=== PATIENT | female | born 1960 | race Caucasian/White ===

== ENCOUNTER 2019-11-26 11:51 | Outpatient (CLI) | payer OTHER, SELFPAY | END 2019-11-26 11:52 | disposition home or self-care (01) | PROVIDERS: PCP Family Medicine; Visit Provider Surgery | DX: Z01.812 Encounter for preprocedural laboratory examination (principal); K43.2 Incisional hernia without obstruction or gangrene | CPT/HCPCS: 36415; 86850; 86900; 86901 ==

== ENCOUNTER 2019-12-04 00:14 | Day surgery (SDC) | payer OTHER, SELFPAY ==
[2019-11-20 14:04] VITALS: BMI 37.6
[2019-12-04] VITALS (19 sets, daily range): BP systolic 104–154; BP diastolic 48–103; PULSE 74–96; RESP 12–20; TEMP 35.9–36.7; O2SAT 92–99; BMI 36.3
--- NOTE | 2019-12-04 09:24 | WPDANESEPPF ---
Anes - Initial Pre Proc Eval Procedure: Operation Date: 12/04/19 11:00 Proposed Procedures p Laparoscopic Incisional Hernia Repair with Mesh, Davinci Assisted - Duncan Parker DO Date/Time: 12/04/19 09:24 Surgeon: Duncan Parker DO Pre Op Diagnosis: incisional hernia Patient Data Age: 59 Gender: F Height: 1.57 m Weight: 93.44 kg Allergies Allergy/AdvReac Type Severity Reaction Status Date / Time peanut Allergy Severe Anaphylactic Verified 12/04/19 09:27 Shock cyclobenzaprine Allergy Mild HYPERACTIVI Verified 12/04/19 09:27 TY latex Allergy Mild Rash Verified 12/04/19 09:27 hydrocodone AdvReac Mild N/V Verified 12/04/19 09:27 COCONUT Allergy Mild Hives / Uncoded 11/20/19 14:06 Red Face METALS Allergy Mild Hives / Uncoded 11/20/19 14:06 Red Face Home Medications Medication Instructions Recorded Confirmed Type No Home Medications 11/07/19 12/04/19 History Patient hx anesthesia problems: none Family hx anesthesia problems: none PMFSH Past Medical History Medical History (Updated 12/04/19 @ 09:25 by Aaron Garber MD) Arthritis Benign reactive hypertension Crohn's disease Degenerative joint disease Incisional hernia without obstruction or gangrene Non compliance w medication regimen GREGORIA (obstructive sleep apnea) Tobacco abuse Umbilical hernia Surgical History Surgical History History of colon resection 2019 History of colonoscopy History of neck surgery Tubal ligation status Social History Social History Social History: Smoking status: Current every day smoker Tobacco type: cigarettes Second hand tobacco smoke exposure: No Alcohol intake: never Substance use: never Substance use type: does not use Gender identity (if verbalized by the patient): Female Anes - Eval Final PreProcedure Day of Procedure 12/04/19 09:24 Patient weight: obese Heart: regular rate and rhythm Lungs: clear to auscultation and normal air movement Airway: Mallampati scale class II Neurological: alert and oriented Last oral intake: >/= 8 hours ASA classification: III Emergent: no Anesthetic plan: proceed Anesthesia type and monitoring: general ETT Informed Consent: The patient's anesthetic plan and its attendant risks and benefits were discussed with the patient/family/POA. Questions were solicited and answers provided to the satisfaction of the patient/family/POA.
[2019-12-04] MEDS: LACTATED RINGERS 1,000 ML 30 ML IV CONT ×3 (10:04→14:50)
[2019-12-04] MEDS: IBUPROFEN IV 800 MG/200 ML 800 MG/200 ML BAG 400 MG IVPB ×2 (10:05→17:33)
--- NOTE | 2019-12-04 10:31 | WPDHPUPDATE1 ---
History and Physical Update Update Date/Time: 12/04/19 10:31 History and Physical has been reviewed, including an updated exam of the patient. There are NO changes in the patient's condition. Risks, benefits, and alternatives have been discussed and questions answered. Patient agrees to proceed with procedure.
[2019-12-04] MEDS: ceFAZolin 2 GM/D5W 50 ML 2 GM/50 ML BAG IVPB (11:00)
--- NOTE | 2019-12-04 13:32 | PM.PROC ---
Procedure Note - Detailed Date of procedure: 12/04/19 Pre-op diagnosis: Incisional Hernia Post-op diagnosis: other (Umbilical and Incisional Hernia) Procedure performed: Laparoscopic incisional hernia repair with Symbotex mesh, da Sasha assisted Description of procedure: Procedure as well as risks, benefits, and alternatives were discussed with the patient. Written consent was obtained and placed in chart prior to procedure. Patient was brought back to surgical suite. She was placed supine on operating table. Time-out was done to confirm patient and procedure. She was then intubated by the anesthesia department. A bump was placed under her left hip, and the bed was flexed slightly to extend the space between her costal margin and iliac crest. Her abdomen was prepped and draped in sterile fashion using chlorhexidine prep. A 5 millimeter incision was made in the left upper quadrant, and a 5 millimeter Optiview trocar was advanced through the abdominal layers under direct visualization. Once inside the abdominal cavity, carbon dioxide insufflation was used to create a pneumoperitoneum. Her abdomen was inspected. An 8 millimeter incision was made in the left lower quadrant, and an 8 millimeter robotic trocar was placed under direct visualization. Another 8 millimeter incision was made in the left lateral abdomen, and an 8 millimeter robotic trocar was placed under direct visualization. Exparel was infiltrated along the lateral abdominal spence to perform a transversus abdominis plane block bilaterally. The 5 millimeter port was removed, the incision was extended to 12 millimeters, and a 12 millimeter air seal port was placed under direct visualization. A Lon-Garibay cone was also used to place an 0-Vicryl simple interrupted suture at this trocar site. The robotic arms were brought up to the patient's bedside and secured to the ports. The camera and instruments were inserted, and I then moved over to the robotic console and took control of the camera and instruments. After careful thorough inspection of the abdominal cavity, I began my dissection at the hernia. There were a few omental adhesions up to the hernia defect and midline abdominal wall. These were taken down using hook electrocautery. The umbilical hernia sac was then excised using hook electrocautery. This was removed and discarded. The falciform ligament was then also taken down for about 5 cm cephalad using hook electrocautery to allow for mesh placement along the abdominal wall. I then measured the hernia size. The umbilical hernia measured 2 cm x 2 cm, and the incisional hernia measured 1 cm x 1 cm and was located 5 cm cephalad to the umbilical hernia. The fascia was closed using an 0-Stratafix running suture in a vertical fashion. A 10 cm x 15 cm Symbotex mesh was then placed within the abdominal cavity. This was oriented vertically with the mesh centered on the hernia defect. The mesh was then secured along the perimeter using 2 0 V lock running absorbable suture. Two 18 in sutures were used starting at the superior and inferior edge and running along the outer circumference.. The repair was inspected, and one final inspection was made around the abdominal cavity. The robotic instruments were then removed, and the robotic arms were disengaged from the trocars. The ports were then removed under direct visualization, the camera was removed, and the pneumoperitoneum was released. The 0 Vicryl transfascial suture was tied down. The skin of the incisions was then approximated using 4-0 Monocryl subcuticular suture. Exofin glue was then applied on top. The patient was then awakened from anesthesia, extubated, and transferred to recovery. Implants: Symbotex mesh 15 cm x 10 cm Anesthesia: GETA and local (Exparel) Surgeon: Duncan Parker DO Estimated blood loss (mL): 5 Drains: No Complications: No immediate complications Condition: stable Disposition: floor Findings: This is a 59-y
[2019-12-04] MEDS: HYDROMORPHONE HCL 1 MG/ML INJ 0.25 MG IV PUSH ×3 (14:19→14:36)
--- NOTE | 2019-12-04 14:43 | SUR.PHASEI ---
1443 updated family on pt condition
[2019-12-04] MEDS: ONDANSETRON INJ 4 MG/2 ML VIAL IV PUSH ×2 (14:48→19:39)
--- NOTE | 2019-12-04 14:55 | SUR.PHASEI ---
1450 pt having pain and nausea, notified danyell paredes to admit pt.
--- NOTE | 2019-12-04 15:25 | SUR.PHASEI ---
1634 sbar faxed to floor, notified
--- NOTE | 2019-12-04 16:52 | PC.NURSE ---
This patient, Saira Colbert, was admitted to [facility] Surg Room 320-01. Patient/family oriented to hospital policies and general routines including ID bracelet, bed and alarms, visiting hours, pain management, procedures, bathroom and other care routines, personal items, smoking policy, room service/diet, and visiting hours. Valuables list has been completed. Information on how to activate the Rapid Response Team has been discussed. Patient/Family are encouraged to report perceived risks to care and to ask questions if they do not understand what they are told or what they should do.
[2019-12-04] MEDS: MORPHINE SULFATE 4 MG/ML INJ IV PUSH (19:39)
[2019-12-04] MEDS: ENOXAPARIN 30 MG/0.3 ML SYRINGE SUB-Q (21:39)
[2019-12-05] MEDS: IBUPROFEN IV 800 MG/200 ML 800 MG/200 ML BAG 400 MG IVPB ×2 (00:25→07:34)
[2019-12-05 02:00] VITALS: BP 104/60; PULSE 85; RESP 18; TEMP 36.6; O2SAT 98
[2019-12-05 06:11] VITALS: BP 101/48; PULSE 73; RESP 18; TEMP 36.6; O2SAT 98
[2019-12-05] MEDS: polyethylene glycoL 3350 17 GM POWD.PACK PO (08:28)
--- NOTE | 2019-12-05 10:25 | PM.DS ---
DS: Diagnosis Admitting Diagnosis Admitting Diagnosis: Incisional hernia without obstruction or gangrene Discharge Diagnosis (1) Incisional hernia without obstruction or gangrene: Code(s): K43.2 - Incisional hernia without obstruction or gangrene Status: Acute (2) Umbilical hernia: Code(s): K42.9 - Umbilical hernia without obstruction or gangrene Status: Acute (3) Crohn's disease: Code(s): K50.90 - Crohn's disease, unspecified, without complications Status: Acute (4) Tobacco abuse: Code(s): Z72.0 - Tobacco use Status: Acute DS: Summary Hospital Course Reason for hospitalization: Postop pain after robotic assisted laparoscopic incisional hernia repair with mesh Hospital Course: This is a 59-year-old woman who presented with an incisional hernia from a prior hand assisted laparoscopic ileocolic resection for Crohn's disease. She has noticed a bulge at her umbilicus and just above her umbilicus over the past several months. She is having pain with this and has to manually reduce the hernia. Decision was made to proceed with an incisional hernia repair. This was performed yesterday. Surgery was uncomplicated, but patient had postoperative pain that was difficult to control in recovery. She was receiving some Dilaudid for pain control, but this was causing nausea. Decision was then made to admit the patient for continued IV pain medications. Status at Discharge Functional status at discharge: independent ambulation Overall status at discharge: patient is progressing back to baseline Time Spent with Patient Time attestation: Total time spent providing and/or coordinating discharge services: Time spent: Less than 30 minutes Exam Const: General: no acute distress GI: Auscultation: normal bowel sounds Other: Incisions healing well. Glue intact. Abdominal binder in place. Discharge Plan Discharge Patient Disposition: Home, Self-Care Discharge Instructions: DISCHARGE INSTRUCTION SHEET FOR HERNIA, GALLBLADDER AND APPENDIX SURGERIES DR. VINSON PATIENT TO TAKE HOME 1. May shower in 24 hours, no soaking in bath x 2weeks. 2. Call office for: Wound increasingly painful or bleeding Vomiting Fever of greater than 101 degrees 3. If no bowel movement for three days, take 1 oz. (30 ml) Milk of Magnesia or MiraLax 17g 1 to 2 times daily. 4. No heavy lifting > 10-15 pounds x 6 weeks for hernia repairs and 2 weeks for laparoscopic cholecystectomy or appendectomy. 5. No driving for 3 days or while taking narcotic pain medications. 6. Ice to surgical site for 48 hours (30 min on, then 30 min off). 7. Up walking 10-30 minutes three times per day. 8. Resume previous home medications. 9. Follow-up 10-14 days in office for wound check or as previously scheduled. ([phone]) 10. Oral pain medications prescription to be sent to pharmacy. Take Tylenol 500mg every 6 hours and Ibuprofen 600mg every 6 hours for the first 2 days, then as needed. 11. NUTRITION: Start out by drinking fluids and increase your diet as tolerated. If you experience nausea, try dry toast, crackers, and 7-UP. If nausea or vomiting persists, contact your surgeon?s office. 12. Gallbladders-Low Fat Diet for 2 weeks (send care note of low fat diet) 13. Inguinal Hernias-wear scrotal support for 48 hours 14. Abdominal Hernias-if sent home with abdominal binder, wear for the first 2 weeks (may remove to shower or at night to sleep).
--- NOTE | 2019-12-05 14:26 | PCCPR ---
On 12/05/19, the student, [ Heather De Luna], provided care and completed [facility] documentation on this patient. I have reviewed the student's documentation and agree with the findings.
== END 2019-12-05 11:15 | disposition home or self-care (01) ==
LOC: ANHSURGERY 13:32 → ANH3MEDSUR 16:21
PROVIDERS: PCP Family Medicine; Visit Provider Surgery
PROC: (CPT 49654; principal; 2019-12-04 11:00)
DX: K43.2 Incisional hernia without obstruction or gangrene (principal); K50.90 Crohn's disease, unspecified, without complications; Z90.49 Acquired absence of other specified parts of digestive tract; G47.33 Obstructive sleep apnea (adult) (pediatric); M19.90 Unspecified osteoarthritis, unspecified site; F17.210 Nicotine dependence, cigarettes, uncomplicated; E66.9 Obesity, unspecified; Z68.36 Body mass index [BMI] 36.0-36.9, adult
CPT/HCPCS: 49654; S2900; C1781; C9290; J0690; J1100; J1170; J1650; J1741; J2250; J2270; J2405; J2704; J2710; J3010; J7120

== ENCOUNTER 2020-03-04 19:15 | Emergency (ER) | payer OTHER, SELFPAY ==
--- NOTE | 2020-03-04 19:26 | ED.BACK ---
HPI - Back Pain/Injury General Chief Complaint: Back Pain/Injury Stated Complaint: back pain Time Seen by Provider: 03/04/20 19:17 Source: patient and RN notes reviewed Mode of arrival: ambulatory Limitations: no limitations History of Present Illness HPI Narrative: patient began having some back pain last evening. She took some ibuprofen and it seemed to resolve. Then today throughout the day she has been having some increasing back pain. She tried some ibuprofen, hot shower, stretching, nothing seemed to help. She had a history of some sciatic back pain in the past. She said she has had this for several years. Looking at her previous chart she was seen at an urgent care for similar symptoms but states that was due to her Crohn's at the time. She did not recall any actual injury. But she says she has been in bed more over the last few days due to her stomach issues. She denies any fever chills nausea vomiting dysuria. She denies any numbness or tingling in her legs. MD elicited complaint: back pain Pertinent past history: prior back pain Onset (ago): day(s) (1) Timing: constant Severity: moderate Similar Symptoms Previously: Yes Quality: dull and aching Location: lumbar spine and right lower back Radiation: none Exacerbating factors: movement, supine positioning and walking Relieving factors: sitting upright Context: unknown Associated symptoms: denies other symptoms Treatments prior to arrival: NSAIDS Work related injury: No Related Data Allergies Allergy/AdvReac Type Severity Reaction Status Date / Time peanut Allergy Severe Anaphylactic Verified 12/04/19 09:27 Shock cyclobenzaprine Allergy Mild HYPERACTIVI Verified 12/04/19 09:27 TY latex Allergy Mild Rash Verified 12/04/19 09:27 hydrocodone AdvReac Mild N/V Verified 12/04/19 09:27 COCONUT Allergy Mild Hives / Uncoded 11/20/19 14:06 Red Face METALS Allergy Mild Hives / Uncoded 11/20/19 14:06 Red Face Review of Systems Eyes: Eyes: Reports no additional eye complaints ENT: Reports system reviewed and no additional complaints, except as documented Cardiovascular: Cardiovascular: Reports no additional cardiovascular complaints Respiratory: Respiratory: Reports no additional respiratory complaints Gastrointestinal: Comments: Patient has chronic abdominal pain and some diarrhea due to her history of Crohn's disease. Genitourinary: Genitourinary: Reports no additional female genitourinary complaints, Denies nocturia and Denies dysuria Musculoskeletal: Musculoskeletal: Reports no additional musculoskeletal complaints Integumentary/Breasts: Skin/Breast: Reports system reviewed and no additional complaints, except as docu Neurologic: Reports system reviewed and no additional complaints, except as documented and Denies focal weakness Psychiatric: Psychiatric: Reports no additional psychiatric complaints Endocrine: Endocrine: Reports no additional endocrine complaints Allergic/Immunologic: Allergic/Immunologic: Reports no additional allergic/immunologic complaints PMFSH Past Medical History Medical History Arthritis Benign reactive hypertension Crohn's disease Degenerative joint disease Incisional hernia without obstruction or gangrene Non compliance w medication regimen GREGORIA (obstructive sleep apnea) Tobacco abuse Umbilical hernia Surgical History Surgical History History of colon resection 2019 History of colonoscopy History of neck surgery Tubal ligation status Family History Family History Father Diabetes mellitus Malignant neoplasm of prostate Hypertension Family history of diabetes mellitus in first degree relative Family history of malignant neoplasm of urinary bladder Family history of heart disease in male family member before age 55 Mother Diabetes
[2020-03-04 19:29] VITALS: BP 157/91; PULSE 104; RESP 14; TEMP 36.9; O2SAT 98
[2020-03-04] MEDS: KETOROLAC (*BKC) 60 MG/2 ML VIAL IM (19:51)
[2020-03-04] MEDS: ORPHENADRINE CITRATE 30 MG/ML 2 ML VIAL 60 MG IM (19:51)
[2020-03-04 19:52] VITALS: BP 137/83; PULSE 99; RESP 15; O2SAT 98
== END 2020-03-04 20:00 | disposition home or self-care (01) ==
PROVIDERS: Emergency Provider Emergency Medicine; PCP Family Medicine
DX: S39.012A Strain of muscle, fascia and tendon of lower back, initial encounter (principal); K50.90 Crohn's disease, unspecified, without complications; G47.33 Obstructive sleep apnea (adult) (pediatric); F17.210 Nicotine dependence, cigarettes, uncomplicated
CPT/HCPCS: 96372; 99283; 99284; J1885; J2360

== ENCOUNTER 2020-07-18 14:17 | Outpatient (CLI) | payer OTHER, SELFPAY ==
[2020-07-18 14:38] LABS: Basophils Percent Auto 0.4 % (0.2-1.2); Eosinophils Absolute Auto 0.2 K/mm3 (0-0.3); Eosinophils Percent Auto 1.8 % (0-4.4); Hematocrit 43.7 % (37.0-47.0); Hemoglobin 14.7 g/dL (12.0-15.0); Immature Granulocyte Absolute 0.04 K/mm3 (0.00-0.031); Immature Granulocyte Percent A 0.4 % (0-0.5); Lymphocytes Percent Auto 24.2 % (18.3-44.2); Mean Corpuscular HGB Conc 33.6 g/dl (32-36); Mean Corpuscular Hemoglobin 31.4 pg (26-34); Mean Corpuscular Volume 93.4 fl (80-100); Mean Platelet Volume 8.2 fl (7.4-10.4); Monocytes Absolute Auto 0.7 K/mm3 (0.1-0.6); Monocytes Percent Auto 7.2 % (2.6-8.5); Platelet Count Result 328 k/mm3 (150-375); Red Blood Count 4.68 M/mm3 (4.2-5.4); Red Cell Distribution Width 13.1 % (11.5-14.5); White Blood Count 9.1 K/mm3 (4.5-10.0)
[2020-07-18 14:53] LABS: Alanine Aminotransferase 20 U/L (4-35); Albumin Level 3.9 g/dL (3.5-5.1); Alkaline Phosphatase 145 U/L (38-126); Anion Gap 7 mmol/L (8-16); Aspartate Amino Transferase 22 U/L (14-36); Bilirubin,Total 0.3 mg/dL (0.2-1.3); Blood Urea Nitrogen 7 mg/dL (7-17); Calcium 9.1 mg/dL (8.4-10.2); Carbon Dioxide 31 mmol/L (22-30); Chloride 102 mmol/L (98-107); Estimated Glomerular Filt Rate > 60; Glucose 93 mg/dL (65-105); Potassium 3.3 mmol/L (3.4-5.0); Sodium 140 mmol/L (137-145)
[2020-07-18 15:01] LABS: Erythrocyte Sedimentation Rate 28 mm/hr (0-20)
[2020-07-18 15:22] LABS: Thyroid Stimulating Hormone 0.585 uIU/mL (0.465-4.680)
[2020-07-23 20:08] LABS: CRP, High Sensitivity >10.0 mg/L (***)
== END 2020-07-18 14:18 | disposition home or self-care (01) ==
PROVIDERS: PCP Family Medicine; Visit Provider Family Medicine
DX: K50.90 Crohn's disease, unspecified, without complications (principal); I10 Essential (primary) hypertension
CPT/HCPCS: 36415; 80053; 84443; 85025; 85652; 86141

== ENCOUNTER 2020-08-21 11:38 | Outpatient (CLI) | payer OTHER, SELFPAY ==
[2020-08-21 13:32] LABS: Hepatitis B Surface Antigen Negative (Negative)
[2020-08-21 13:49] LABS: Hepatitis B Surface Anti Res Negative
[2020-08-25 02:36] LABS: Hepatitis B Core Ab Total Nonreactive (Nonreactive)
[2020-08-26 01:38] LABS: NIL 0.02 IU/mL; Quantiferon TB Plus, 1T NEGATIVE (NEGATIVE)
== END 2020-08-21 11:39 | disposition home or self-care (01) ==
LOC: ANHLAB 11:40
PROVIDERS: PCP Family Medicine; Visit Provider Internal Medicine Gastroenterology
DX: K50.90 Crohn's disease, unspecified, without complications (principal)
CPT/HCPCS: 36415; 86480; 86704; 86706; 87340; 87536

== ENCOUNTER 2020-09-03 17:10 | Emergency (ER) | payer OTHER, SELFPAY ==
--- NOTE | ~2020-09-03 | CT_ITS ---
EXAMINATION: CT brain wo con DATE: 09/03/2020 17:50 INDICATION: Dizziness and headache post head injury TECHNIQUE: Computed tomography (CT) of the head was performed without intravenous contrast. Sagittal and coronal reconstructions were performed. The mA was adjusted according to patient size. Iterative reconstruction technique was employed. The dose-length product was 605.33 mGy-cm. COMPARISON: head CT dated 12/27/2012 FINDINGS: No fracture. No acute intracranial hemorrhage, acute infarction or abnormal extra axial fluid collect ion. Ventricles are normal and symmetric. No mass/mass effect. Interval increase in size of a nonspec ific small sessile nodule along the skin surface in the right temporal region which measures 1.7 cm i n diameter and up to 3 mm in maximal thickness. Correlate with physical exam. The orbits, paranasal s inuses and mastoid air cells are normal. Intracranial calcified cerebral atherosclerosis is noted. IMPRESSION: 1. No fracture or acute intracranial process. 2. Increase in size of a chronic nonspecific sessile skin nodule in the right temporal region. Correl ate with physical exam. Reviewed, dictated and finalized at location A. 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 No fracture or acute intracranial process. 2. Increase in size of a chronic nonspecific sessile skin nodule in the right t emporal region. Correlate with physical exam.
[2020-09-03 17:27] VITALS: BP 163/89; PULSE 100; RESP 20; TEMP 36.3; O2SAT 99
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
[2020-09-03 18:00] VITALS: BP 114/64; PULSE 95; RESP 20; O2SAT 97
[2020-09-03 19:05] VITALS: BP 125/71; PULSE 96; RESP 20; O2SAT 97
== END 2020-09-03 19:13 | disposition home or self-care (01) ==
PROVIDERS: Emergency Provider Emergency Medicine; PCP Family Medicine
DX: S06.0X0A Concussion without loss of consciousness, initial encounter (principal); W22.8XXA Striking against or struck by other objects, initial encounter
CPT/HCPCS: 70450; 99283; 99284

== ENCOUNTER → 2020-12-23 03:03 | Outpatient (CLI) | payer OTHER, SELFPAY ==
[2020-12-23 18:08] LABS: SARS-CoV-2 RNA PCR Negative
== END ==
PROVIDERS: PCP Family Medicine; Visit Provider Internal Medicine Gastroenterology
DX: Z01.812 Encounter for preprocedural laboratory examination (principal); Z20.822 Contact with and (suspected) exposure to COVID-19
CPT/HCPCS: C9803; U0003; U0005

== ENCOUNTER 2020-12-26 00:44 | Day surgery (SDC) | payer OTHER, SELFPAY ==
[2020-12-15 15:06] VITALS: BMI 36.3
[2020-12-26 12:39] VITALS: BP 152/99; PULSE 99; RESP 17; TEMP 35.7; O2SAT 100; BMI 36.8
[2020-12-26] MEDS: LACTATED RINGERS 1,000 ML 150 ML IV CONT (12:48)
--- NOTE | 2020-12-26 13:23 | WPDANESEPPF ---
Anes - Initial Pre Proc Eval Procedure: Operation Date: 12/26/20 13:30 Proposed Procedures p Esophagogastroduodenoscopy & Colonoscopy - Norberto Gudino MD Date/Time: 12/26/20 13:23 Surgeon: Norberto Gudino MD Pre Op Diagnosis: chrohns disease, dysphagia Patient Data Age: 60 Gender: F Height: 5 ft 2 in Weight: 91.2 kg Last Vital Signs Temp 96.3 F L 12/26/20 12:39 Pulse 99 12/26/20 12:39 Resp 17 12/26/20 12:39 BP 152/99 H 12/26/20 12:39 Pulse Ox 100 12/26/20 12:39 Allergies Allergy/AdvReac Type Severity Reaction Status Date / Time peanut Allergy Severe Anaphylactic Verified 12/26/20 12:38 Shock cyclobenzaprine Allergy Mild HYPERACTIVI Verified 12/26/20 12:38 TY latex Allergy Mild Rash Verified 12/26/20 12:38 hydrocodone AdvReac Mild N/V Verified 12/26/20 12:38 hydromorphone [From Dilaudid] AdvReac Vomiting Verified 12/26/20 12:38 COCONUT Allergy Mild Hives / Uncoded 12/26/20 12:38 Red Face METALS Allergy Mild Hives / Uncoded 12/26/20 12:38 Red Face Home Medications Medication Instructions Recorded Confirmed Type No Home Medications 08/21/20 12/26/20 History Patient hx anesthesia problems: none Family hx anesthesia problems: none PMFSH Past Medical History Medical History Arthritis Benign reactive hypertension Chronic diarrhea Crohn's disease Degenerative joint disease Dysphagia Ileitis, terminal Incisional hernia without obstruction or gangrene Non compliance w medication regimen GREGORIA (obstructive sleep apnea) Tobacco abuse Umbilical hernia Surgical History Surgical History History of colon resection 2019 History of colonoscopy History of neck surgery Tubal ligation status Family History Family History Father Diabetes mellitus Malignant neoplasm of prostate Hypertension Family history of diabetes mellitus in first degree relative Family history of malignant neoplasm of urinary bladder Family history of heart disease in male family member before age 55 Mother Diabetes mellitus Family history of kidney disease Patient's mother is Other Family history of cardiovascular disease Social History Social History Social History: Smoking packs per day: 0.5 Smoking cigarettes per day: 10.0 Years smoked: 30 Smoking pack-years: 15.00 Smoking status: Former smoker Tobacco type: cigarettes Second hand tobacco smoke exposure: No Alcohol intake: never Substance use: never Substance use type: does not use Living arrangements: with family Gender identity (if verbalized by the patient): Female Spiritual care concerns: No Agree to blood products: Yes Anes - Eval Final PreProcedure Day of Procedure 12/26/20 13:23 Patient weight: obese Heart: regular rate and rhythm Lungs: clear to auscultation Airway: Mallampati scale class II Neurological: alert and oriented Last oral intake: >/= 8 hours ASA classification: III Emergent: no Anesthetic plan: proceed Anesthesia type and monitoring: general GIVS and standard monitoring Informed Consent: The patient's anesthetic plan and its attendant risks and benefits were discussed with the patient/family/POA. Questions were solicited and answers provided to the satisfaction of the patient/family/POA.
--- NOTE | 2020-12-26 13:48 | PM.HPGS ---
History of Present Illness History of Present Illness Consent: Risks, benefits, and alternatives have been discussed and questions answered. Patient agrees to proceed with procedure. Chief complaint: chrohns disease, dysphagia Narrative: Saira Colbert is a 60 year old female with Crohn disease in 2013 and underwent colonoscopy, terminal ileitis was identified, and confirmed to be Crohn disease. She was admitted to hospital in 04/2019 with abdominal pain and SBO, CAT scan and small bowel series confirmed terminal ileal stricturing, underwent Hand-assisted laparoscopic ileocolic resection with [id number] ileocolic anastomosis, bx showed active ileitis with crohn's. Also dyspepsia, she is not taking anything for Crohn's. Inflammatory markers elevated, also diarrhea. Review of Systems Constitutional: Constitutional: Denies headache(s) and Denies weakness Eyes: Eyes: Denies blurry vision ENT: Reports Normal hearing present, Denies headache(s) and Denies neck pain Cardiovascular: Cardiovascular: Denies chest pain and Denies dyspnea Respiratory: Respiratory: Denies dyspnea Gastrointestinal: Gastrointestinal: Reports no additional gastrointestinal complaints Genitourinary: Genitourinary: Denies dysuria Musculoskeletal: Musculoskeletal: Denies neck pain Integumentary/Breasts: Skin/Breast: Denies dry skin Neurologic: Reports Normal hearing present, Denies headache(s) and Denies weakness Psychiatric: Psychiatric: Denies anxiety Endocrine: Endocrine: Denies change in body appearance Hematologic/Lymphatic: Hematologic/Lymphatic: Denies easy bleeding Allergic/Immunologic: Allergic/Immunologic: Denies urticaria PMFSH Past Medical History Medical History Arthritis Benign reactive hypertension Chronic diarrhea Crohn's disease Degenerative joint disease Dysphagia Ileitis, terminal Incisional hernia without obstruction or gangrene Non compliance w medication regimen GREGORIA (obstructive sleep apnea) Tobacco abuse Umbilical hernia Surgical History Surgical History History of colon resection 2019 History of colonoscopy History of neck surgery Tubal ligation status Family History Family History Father Diabetes mellitus Malignant neoplasm of prostate Hypertension Family history of diabetes mellitus in first degree relative Family history of malignant neoplasm of urinary bladder Family history of heart disease in male family member before age 55 Mother Diabetes mellitus Family history of kidney disease Patient's mother is Other Family history of cardiovascular disease Social History Social History Social History: Smoking packs per day: 0.5 Smoking cigarettes per day: 10.0 Years smoked: 30 Smoking pack-years: 15.00 Smoking status: Former smoker Tobacco type: cigarettes Second hand tobacco smoke exposure: No Alcohol intake: never Substance use: never Substance use type: does not use Living arrangements: with family Gender identity (if verbalized by the patient): Female Spiritual care concerns: No Agree to blood products: Yes Meds Home Medications and Allergies Home Medications Medication Instructions Recorded Confirmed Type No Home Medications 08/21/20 12/26/20 History Allergies Allergy/AdvReac Type Severity Reaction Status Date / Time peanut Allergy Severe Anaphylactic Verified 12/26/20 12:38 Shock cyclobenzaprine Allergy Mild HYPERACTIVI Verified 12/26/20 12:38 TY latex Allergy Mild Rash Verified 12/26/20 12:38 hydrocodone AdvReac Mild N/V Verified 12/26/20 12:38 hydromorphone [From Dilaudid] AdvReac Vomiting Verified 12/26/20 12:38 COCONUT Allergy Mild Hives / Uncoded 12/26/20 12:38 Red Face META
[2020-12-26] MEDS: BENZOCAINE (*SP) 60 ML SPRAY CAN (HURRICAINE) 1 SPRAY MUCOUS MEM (13:51)
[2020-12-26 14:20] VITALS: BP 121/62; PULSE 90; RESP 22; O2SAT 95
[2020-12-26 14:30] VITALS: BP 128/65; PULSE 85; RESP 19; O2SAT 96
[2020-12-26 14:40] VITALS: BP 133/64; PULSE 83; RESP 18; O2SAT 97
== END 2020-12-26 14:51 | disposition home or self-care (01) ==
PROVIDERS: PCP Family Medicine; Visit Provider Internal Medicine Gastroenterology
PROC: 0DJ08ZZ Inspection of Upper Intestinal Tract, Via Natural or Artificial Opening Endoscopic (ICD-10-PCS; CPT 43235; principal; 2020-12-26 13:30)
DX: K50.90 Crohn's disease, unspecified, without complications (principal); Z98.0 Intestinal bypass and anastomosis status; Z90.49 Acquired absence of other specified parts of digestive tract; K64.4 Residual hemorrhoidal skin tags; K64.8 Other hemorrhoids; Z87.891 Personal history of nicotine dependence; E66.9 Obesity, unspecified; Z68.36 Body mass index [BMI] 36.0-36.9, adult
CPT/HCPCS: 45380; 43239; 88305; J2405; J2704; J7120

== ENCOUNTER 2021-01-06 08:05 | Emergency (ER) | payer OTHER, SELFPAY ==
--- NOTE | 2021-01-06 08:15 | ED.BACK ---
HPI - Back Pain/Injury General Chief Complaint: Extremity Injury, Upper Stated Complaint: neck pain Time Seen by Provider: 01/06/21 08:14 Source: patient Mode of arrival: ambulatory Limitations: no limitations History of Present Illness HPI Narrative: Patient is a 60-year-old female with history of Crohn's disease who presents for evaluation of left-sided neck pain that began last evening. 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 Patient reports some tingling in her left shoulder. She denies shoulder pain. No chest pain or shortness of breath. Patient states she was pushing with the left side when the pain exacerbated. Pain is worsened with movement. She does report neck stiffness. She denies fever, chills, nausea, vomiting, abdominal pain. She has not taken any medication for the pain, states that she is here for Worker's Compensation. Of note, pt states she had a colonoscopy last week, no worsening abdominal distension, pain, vomiting. Related Data Allergies Allergy/AdvReac Type Severity Reaction Status Date / Time peanut Allergy Severe Anaphylactic Verified 12/26/20 12:38 Shock cyclobenzaprine Allergy Mild HYPERACTIVI Verified 12/26/20 12:38 TY latex Allergy Mild Rash Verified 12/26/20 12:38 hydrocodone AdvReac Mild N/V Verified 12/26/20 12:38 hydromorphone [From Dilaudid] AdvReac Vomiting Verified 12/26/20 12:38 COCONUT Allergy Mild Hives / Uncoded 12/26/20 12:38 Red Face METALS Allergy Mild Hives / Uncoded 12/26/20 12:38 Red Face Review of Systems Review of Systems: Narrative: CONSTITUTIONAL: Denies fever, chills, or sweats. EYES: Denies visual changes, redness, or discharge. ENT: Denies rhinorrhea, congestion, sore throat, or otalgia. CARDIOVASCULAR: Denies chest pain RESPIRATORY: Denies cough or dyspnea. GASTROINTESTINAL: Reports intermittent abdominal pain due to history of Crohn's disease, no severe abdominal pain today SKIN: Denies rash or itching. MUSCULOSKELETAL: Denies back pain, denies shoulder pain or other joint pain, reports neck pain on the left side of the neck NEUROLOGIC: Denies headache, numbness, or weakness. Reports tingling in the left arm. [facility] Past Medical History Medical History Arthritis Benign reactive hypertension Chronic diarrhea Crohn's disease Degenerative joint disease Dyspepsia Dysphagia Ileitis, terminal Incisional hernia without obstruction or gangrene Non compliance w medication regimen GREGORIA (obstructive sleep apnea) Tobacco abuse Umbilical hernia Surgical History Surgical History History of colon resection 2019 History of colonoscopy History of neck surgery Tubal ligation status Family History Family History Father Diabetes mellitus Malignant neoplasm of prostate Hypertension Family history of diabetes mellitus in first degree relative Family history of malignant neoplasm of urinary bladder Family history of heart disease in male family member before age 55 Mother Diabetes mellitus Family history of kidney disease Patient's mother is Other Family history of cardiovascular disease Social History Social History Social History: Smoking packs per day: 0.5 Smoking cigarettes per day: 10.0 Years smoked: 30 Smoking pack-years: 15.00 Smoking status: Former smoker Tobacco type: cigarettes Second hand tobacco smoke exposure: No Alcohol intake: never Substance use: never Substance use type: does not use Gender identity (if verbalized by the patient): Female Spiritual care concerns: No Agree to blood products: Yes Exam Narrative: Exam Narrat
[2021-01-06 08:16] VITALS: BP 143/75; PULSE 103; RESP 14; TEMP 35.7; O2SAT 99
[2021-01-06] MEDS: ACETAMINOPHEN 500 MG TABLET 1000 MG PO (08:25)
[2021-01-06] MEDS: IBUPROFEN 600 MG TABLET PO (08:25)
[2021-01-06 08:50] VITALS: BP 157/93; PULSE 93; RESP 12; O2SAT 99
== END 2021-01-06 08:51 | disposition home or self-care (01) ==
LOC: ANHED 08:42
PROVIDERS: Emergency Provider Emergency Medicine; PCP Family Medicine
DX: M54.2 Cervicalgia (principal); F17.210 Nicotine dependence, cigarettes, uncomplicated; M19.90 Unspecified osteoarthritis, unspecified site; I10 Essential (primary) hypertension; G47.30 Sleep apnea, unspecified; K50.90 Crohn's disease, unspecified, without complications
CPT/HCPCS: 99283; A9270

== ENCOUNTER 2021-01-14 08:23 | Emergency (ER) | payer OTHER, SELFPAY ==
--- NOTE | ~2021-01-14 | XR_ITS ---
EXAMINATION: XR forearm RT 2V EXAM DATE: 01/14/2021 08:38 INDICATION: No known recent injury provided at this time. Pain of the right forearm radial side. TECHNIQUE: Right forearm frontal and lateral projections obtained and reviewed. There is no prior st udy for comparison. FINDINGS: There are no acute right forearm fractures or dislocations identified. There is no subcuta neous gas. The soft tissue is unremarkable. There are no radiopaque foreign bodies. IMPRESSION: 1. Unremarkable XR forearm RT 2V exam. Reviewed, dictated and finalized at location A.
[2021-01-14 08:32] VITALS: BP 164/89; PULSE 86; RESP 16; TEMP 36.3; O2SAT 100
[2021-01-14 08:33] VITALS: BP 164/89; PULSE 86; RESP 16; TEMP 36.3; O2SAT 100
--- NOTE | 2021-01-14 09:10 | ED.UPPEXIN ---
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 She now has a weeklong history of right wrist pain that is mild, worse with motion, better at rest[began splinting yesterday], located at the distal radial styloid. No known direct injury, deformity, bleeding, redness; she requests work note. Related Data Allergies Allergy/AdvReac Type Severity Reaction Status Date / Time peanut Allergy Severe Anaphylactic Verified 12/26/20 12:38 Shock cyclobenzaprine Allergy Mild HYPERACTIVI Verified 12/26/20 12:38 TY latex Allergy Mild Rash Verified 12/26/20 12:38 hydrocodone AdvReac Mild N/V Verified 12/26/20 12:38 hydromorphone [From Dilaudid] AdvReac Vomiting Verified 12/26/20 12:38 COCONUT Allergy Mild Hives / Uncoded 12/26/20 12:38 Red Face METALS Allergy Mild Hives / Uncoded 12/26/20 12:38 Red Face Review of Systems Review of Systems: Narrative: General/Constitutional: No weight loss,fever Eyes: N0: Redness,discharge Ears/Nose/Throat: No: Epistaxis,ear discharge Respiratory: Denies: Hemoptysis Gastrointestinal: No Vomiting, Bleeding-rectal Skin: No Lumps, eruption Neurologic: No Focal Weakness,Sz PMFSH Past Medical History Medical History Arthritis Benign reactive hypertension Chronic diarrhea Crohn's disease Degenerative joint disease Dyspepsia Dysphagia Ileitis, terminal Incisional hernia without obstruction or gangrene Non compliance w medication regimen GREGORIA (obstructive sleep apnea) Tobacco abuse Umbilical hernia Surgical History Surgical History History of colon resection 2019 History of colonoscopy History of neck surgery Tubal ligation status Family History Family History Father Diabetes mellitus Malignant neoplasm of prostate Hypertension Family history of diabetes mellitus in first degree relative Family history of malignant neoplasm of urinary bladder Family history of heart disease in male family member before age 55 Mother Diabetes mellitus Family history of kidney disease Patient's mother is Other Family history of cardiovascular disease Social History Social History Social History: Smoking packs per day: 0.5 Smoking cigarettes per day: 10.0 Years smoked: 30 Smoking pack-years: 15.00 Smoking status: Former smoker Tobacco type: cigarettes Second hand tobacco smoke exposure: No Alcohol intake: never Substance use: never Substance use type: does not use Gender identity (if verbalized by the patient): Female Spiritual care concerns: No Agree to blood products: Yes Comments At time of signature, agree with nursing past medical, surgical, social and family history. There is no relevant family history pertinent to the presenting complaint Exam Narrative: Exam Narrative: General Appearance: Rodas hair/older than stated age, well nourished/obese,, Conjunctiva clear Mouth/Throat: Normal appearing, Normal lips, Supple Respiratory: Airway patent, No respiratory distress MS-wrist: Normal strength (mostly intact, limited flexion/extension by pain), Tenderness (medial styloid, with mild decreased ROM), Scant swelling (laterally), Other (no snuffbox tenderness) Skin: Warm, Dry, Normal color Neurological: A&O x3, Speech clear, CN II-XII intact Psychiatric: Normal mood, Normal affect Course Course [facility]
== END 2021-01-14 09:19 | disposition home or self-care (01) ==
PROVIDERS: Emergency Provider Emergency Medicine; PCP Family Medicine
DX: M65.4 Radial styloid tenosynovitis [de Quervain] (principal); M19.90 Unspecified osteoarthritis, unspecified site; G47.33 Obstructive sleep apnea (adult) (pediatric); Z86.718 Personal history of other venous thrombosis and embolism
CPT/HCPCS: 73090; 99213; G0463

== ENCOUNTER 2021-03-25 22:29 | Emergency (ER) | payer OTHER, SELFPAY ==
--- NOTE | ~2021-03-25 | CT_ITS ---
EXAMINATION: CT abdomen pelvis w con DATE: 03/25/2021 23:46 INDICATION: Abdominal pain. TECHNIQUE: Computed tomography (CT) of the abdomen and pelvis was performed with 100 mL Omnipaque 350 intravenous contrast. Automated exposure control and iterative reconstruction technique were employe d. The dose-length product was 1405.79 mGy-cm. COMPARISON: CT abdomen and pelvis 04/11/2019 FINDINGS: The visualized portions of the lung bases demonstrate mild atelectasis. Calcified right dorothy g nodules are consistent with old granulomatous disease. No pleural effusion. The heart size is angelita l. There are coronary artery calcifications. No pericardial effusion. The liver, gallbladder, pancrea s, adrenal glands, and kidneys are normal. Calcifications in the spleen are consistent with old granu lomatous disease. There is liquid stool in the colon suggestive of diarrhea. There are changes of jorge luis e-to-side ileocolic anastomosis. There is wall thickening of approximately 40 cm of distal ileum. The re are no pathologically enlarged lymph nodes. There is no free intraperitoneal fluid. There is mild lumbar spondylosis. There are bridging endplate osteophytes at multiple levels in the thoracic spine, consistent with diffuse idiopathic skeletal hyperostosis (DISH). IMPRESSION: 1. Wall thickening of approximately 40 cm of distal ileum, consistent with Crohn disease. Reviewed, dictated and finalized at location A. IMPRESSION: 1. Wall thickening of approximately 40 cm of distal ileum, consistent with Croh n disease.
[2021-03-25 22:37] VITALS: BP 183/95; PULSE 119; RESP 24; TEMP 36.9; O2SAT 100
[2021-03-25 23:00] VITALS: BP 127/93; PULSE 110; RESP 20; O2SAT 99
[2021-03-25 23:00] LABS: Basophils Absolute Auto 0.1 K/mm3 (0.0-0.1); Basophils Percent Auto 0.5 % (0.2-1.2); Eosinophils Absolute Auto 0.2 K/mm3 (0-0.3); Eosinophils Percent Auto 1.4 % (0-4.4); Hematocrit 43.3 % (37.0-47.0); Hemoglobin 14.7 g/dL (12.0-15.0); Immature Granulocyte Absolute 0.05 K/mm3 (0.00-0.031); Immature Granulocyte Percent A 0.3 % (0-0.5); Lymphocytes Absolute Auto 2.37 K/mm3 (0.9-3.2); Lymphocytes Percent Auto 15.5 % (18.3-44.2); Mean Corpuscular HGB Conc 33.9 g/dl (32-36); Mean Corpuscular Hemoglobin 30.2 pg (26-34); Mean Corpuscular Volume 88.9 fl (80-100); Mean Platelet Volume 8.3 fl (7.4-10.4); Monocytes Absolute Auto 0.7 K/mm3 (0.1-0.6); Monocytes Percent Auto 4.7 % (2.6-8.5); Neutrophils Absolute Auto 11.9 K/mm3 (1.3-6.7); Neutrophils Percent Auto 77.6 % (45.5-73.1); Platelet Count Result 400 k/mm3 (150-375); Red Blood Count 4.87 M/mm3 (4.2-5.4); Red Cell Distribution Width 13.2 % (11.5-14.5); White Blood Count 15.3 K/mm3 (4.5-10.0)
[2021-03-25 23:11] LABS: Alanine Aminotransferase 22 U/L (4-35); Albumin Level 4.3 g/dL (3.5-5.1); Alkaline Phosphatase 149 U/L (38-126); Anion Gap 11 mmol/L (8-16); Aspartate Amino Transferase 30 U/L (14-36); Bilirubin,Total 0.4 mg/dL (0.2-1.3); Blood Urea Nitrogen 9 mg/dL (7-17); Calcium 9.7 mg/dL (8.4-10.2); Carbon Dioxide 24 mmol/L (22-30); Chloride 105 mmol/L (98-107); Estimated CRCL calculation 80 ml/min; Estimated Glomerular Filt Rate > 60; Glucose 135 mg/dL (65-105); Lipase 66 U/L (23-300); Potassium 4.2 mmol/L (3.4-5.0); Sodium 140 mmol/L (137-145)
[2021-03-25 23:13] LABS: Add Urine Microscopic? NO; Appearance Urine Clear (Clear); Bilirubin Urine Negative (Negative); Blood Urine Negative (Negative); Color Urine Yellow (Yellow); Glucose Urine UA Negative (Negative); Ketones Urine Negative (Negative); Leukocyte Esterase Ur Negative LEU/UL (Negative); Nitrate Urine Negative (Negative); Protein Urine Negative (Negative); Urobilinogen Urine Negative mg/dL (<2.0)
--- NOTE | 2021-03-25 23:32 | ED.ABDPAIN ---
HPI - Abdominal Pain General Chief Complaint: Abdominal Pain Stated Complaint: crohns flare Time Seen by Provider: 03/25/21 23:00 Source: patient Mode of arrival: ambulatory Limitations: no limitations History of Present Illness HPI narrative: Patient is a 60-year-old female complaining of I have a Crohn's flareup , history of Crohn's disease, describes her flareup as abdominal pain accompanied by nausea vomiting that started today. Pain Consistency: intermittent Location: periumbilical Pain scale (0-10): 8 Quality: cramping and dull Radiation: none Migration to: no migration Exacerbating factors: nothing Relieving factors: nothing Related Data Allergies Allergy/AdvReac Type Severity Reaction Status Date / Time peanut Allergy Severe Anaphylactic Verified 03/25/21 22:40 Shock cyclobenzaprine Allergy Mild HYPERACTIVI Verified 03/25/21 22:40 TY latex Allergy Mild Rash Verified 03/25/21 22:40 hydrocodone AdvReac Mild N/V Verified 03/25/21 22:40 hydromorphone [From Dilaudid] AdvReac Vomiting Verified 03/25/21 22:40 COCONUT Allergy Mild Hives / Uncoded 03/25/21 22:40 Red Face METALS Allergy Mild Hives / Uncoded 03/25/21 22:40 Red Face Review of Systems Review of Systems: All systems reviewed & are unremarkable except as noted in HPI and below Constitutional: Constitutional: Denies body ache(s), Denies chills, Denies excessive sweating, Denies fatigue, Denies fever(s), Denies headache(s), Denies lethargy, Denies malaise, Denies weakness and Denies weight loss Eyes: Eyes: Denies blurry vision, Denies change in vision and Denies loss of vision ENT: Denies dizziness, Denies ear discharge, Denies headache(s), Denies lip swelling, Denies epistaxis, Denies nasal congestion, Denies neck pain, Denies throat swelling and Denies tongue swelling Cardiovascular: Cardiovascular: Denies chest pain, Denies chest pain at rest, Denies chest pain with activity, Denies diaphoresis, Denies rapid heart rate, Denies edema, Denies irregular heart rhythm, Denies lightheadedness, Denies palpitations, Denies dyspnea and Denies dyspnea on exertion Respiratory: Respiratory: Denies chest congestion, Denies cough, Denies hemoptysis, Denies dyspnea and Denies dyspnea on exertion Gastrointestinal: Gastrointestinal: Denies melena, Denies hematochezia, Denies diarrhea and Denies hematemesis Musculoskeletal: Musculoskeletal: Denies abnormal gait, Denies deformity, Denies joint swelling, Denies limited range of motion, Denies neck pain and Denies numbness Neurologic: Denies Abnormal speech present, Denies abnormal gait, Denies confusion, Denies dizziness, Denies headache(s), Denies focal weakness, Denies loss of vision, Denies numbness, Denies Other visual disturbances, Denies Sensory deficit (Neuro) and Denies weakness Psychiatric: Psychiatric: Denies confusion, Denies depression, Denies auditory hallucinations, Denies homicidal ideation and Denies suicidal ideation Endocrine: Endocrine: Denies cold intolerance, Denies excessive sweating, Denies fatigue, Denies heat intolerance and Denies palpitations Hematologic/Lymphatic: Hematologic/Lymphatic: Denies easy bleeding and Denies easy bruising Allergic/Immunologic: Allergic/Immunologic: Denies lip swelling, Denies throat swelling and Denies tongue swelling PMFSH Past Medical History Medical History Arthritis Benign reactive hypertension Chronic diarrhea Crohn's disease Degenerative joint disease Dyspepsia Dysphagia Ileitis, terminal Incisional hernia without obstruction or gangrene Non compliance w medication regimen GREGORIA (obstructive sleep apnea) Tobacco abuse Umbilical hernia Surgical History Surgical History History of colon resection 2019 History of colonoscopy History of neck surgery Tubal ligation status Family History Family History (Reviewed 03/25/21 @ 23:34 by Tiarra
[2021-03-25] MEDS: MORPHINE SULFATE (*CRX) 2 MG/ML INJ IV PUSH (23:54)
[2021-03-25] MEDS: LACTATED RINGERS 1,000 ML 999 ML IV CONT (23:55)
[2021-03-25 23:57] VITALS: BP 144/80; PULSE 99; RESP 13; O2SAT 97
[2021-03-26 01:00] VITALS: BP 123/87; PULSE 74; RESP 19; O2SAT 97
[2021-03-26] MEDS: DEXAMETHASONE SOD PHOS INJ 4 MG/ML VIAL 10 MG IV PUSH (01:00)
== END 2021-03-26 01:00 | disposition home or self-care (01) ==
PROVIDERS: Emergency Provider Emergency Medicine; PCP Family Medicine
DX: K50.90 Crohn's disease, unspecified, without complications (principal); I10 Essential (primary) hypertension; Z87.891 Personal history of nicotine dependence
CPT/HCPCS: 36415; 74177; 80053; 81003; 83690; 85025; 96361; 96374; 99284; J1100; J2270; J7120; Q9967

== ENCOUNTER 2021-03-27 17:55 | Emergency (ER) | payer OTHER, SELFPAY ==
--- NOTE | 2021-03-27 18:06 | ED.ABDPAIN ---
HPI - Abdominal Pain General Chief Complaint: Abdominal Pain Stated Complaint: Crohns flare up Time Seen by Provider: 03/27/21 18:07 Source: patient and RN notes reviewed Mode of arrival: ambulatory Limitations: no limitations History of Present Illness HPI narrative: Patient has a history of Crohn's disease and was seen at another facility 2 days ago. She was started on steroids and given some IV fluids there. She was feeling better but then yesterday had some vomiting. She tried to eat some soft foods today in the pain returned. She had a CT scan at that time which showed mild swelling of areas of her colon consistent with Crohn's disease. Remainder of her labs were noncontributory. MD elicited complaint: abdominal pain Pertinent past history: other (Crohn's Dz) Onset (ago): day(s) (3) Pain Consistency: intermittent Location: diffuse Severity: moderate Quality: cramping and fullness Radiation: none Migration to: no migration Exacerbating factors: eating Relieving factors: nothing Associated symptoms: nausea and vomiting (Yesterday) Related Data Patient : No Allergies Allergy/AdvReac Type Severity Reaction Status Date / Time peanut Allergy Severe Anaphylactic Verified 03/25/21 22:40 Shock cyclobenzaprine Allergy Mild HYPERACTIVI Verified 03/25/21 22:40 TY latex Allergy Mild Rash Verified 03/25/21 22:40 hydrocodone AdvReac Mild N/V Verified 03/25/21 22:40 hydromorphone [From Dilaudid] AdvReac Vomiting Verified 03/25/21 22:40 COCONUT Allergy Mild Hives / Uncoded 03/25/21 22:40 Red Face METALS Allergy Mild Hives / Uncoded 03/25/21 22:40 Red Face Review of Systems Review of Systems: All systems reviewed & are unremarkable except as noted in HPI and below Constitutional: Constitutional: Denies chills and Denies fever(s) Gastrointestinal: Gastrointestinal: Reports as per HPI [facility] Past Medical History Medical History Arthritis Benign reactive hypertension Chronic diarrhea Crohn's disease Degenerative joint disease Dyspepsia Dysphagia Ileitis, terminal Incisional hernia without obstruction or gangrene Non compliance w medication regimen GREGORIA (obstructive sleep apnea) Tobacco abuse Umbilical hernia Surgical History Surgical History History of colon resection 2019 History of colonoscopy History of neck surgery Tubal ligation status Family History Family History Father Diabetes mellitus Malignant neoplasm of prostate Hypertension Family history of diabetes mellitus in first degree relative Family history of malignant neoplasm of urinary bladder Family history of heart disease in male family member before age 55 Mother Diabetes mellitus Family history of kidney disease Patient's mother is Other Family history of cardiovascular disease Social History Social History Social History: Smoking packs per day: 0.5 Smoking cigarettes per day: 10.0 Years smoked: 30 Smoking pack-years: 15.00 Smoking status: Former smoker Tobacco type: cigarettes Second hand tobacco smoke exposure: No Alcohol intake: never Substance use: never Substance use type: does not use Gender identity (if verbalized by the patient): Female Spiritual care concerns: No Agree to blood products: Yes Exam Const: General: healthy appearing and no acute distress Nutritional Appearance: well nourished and obese centrally obese Orientation/consciousness: patient oriented x3 HENMT: Head: normal to inspection Ears: external ears normal Eyes: Conjunctivae: conjunctivae normal Pupils: Equal, round and reactive pupils present EOM: EOMs intact bilaterally Neck: Neck: normal visual inspection Resp: Effort & Inspection: normal respirato
[2021-03-27 18:13] VITALS: BP 163/96; PULSE 94; RESP 18; TEMP 36.5; O2SAT 98
[2021-03-27] MEDS: methylPREDNISolone SOD SUCC 125 MG VIAL IM (18:29)
== END 2021-03-27 18:58 | disposition home or self-care (01) ==
PROVIDERS: Emergency Provider Emergency Medicine; PCP Family Medicine
DX: K50.10 Crohn's disease of large intestine without complications (principal)
CPT/HCPCS: 96372; 99283; J2930

== ENCOUNTER 2021-06-30 09:27 | Outpatient (CLI) | payer OTHER, SELFPAY ==
--- NOTE | ~2021-06-30 | DEXA_ITS ---
Bone Density Report Name: Saira Colbert Age: 61 Sex: Female Ethnicity: White Date of : 1960 Indication: postmenopausal; height loss; inflammatory bowel disease; prior fracture; Referring Provider: ALLISON MARTINS Study: Bone densitometry was performed. Exam Date: June 30, 2021 Accession number: [id number] Bone Density: Region BMD T-score Z-score Classification AP Spine (L3, L4) 0.904 -1.8 -0.3 Osteopenia Femoral Neck (Left) 0.670 -1.6 -0.3 Osteopenia Total Hip (Left) 0.840 -0.8 0.1 Normal Total Hip Bilateral Avg 0.785 -1.3 -0.4 Osteopenia Femoral Neck (Right) 0.678 -1.5 -0.3 Osteopenia Total Hip (Right) 0.729 -1.7 -0.8 Osteopenia World Health Organization criteria for BMD impression classify patients as: Normal (T-score at or above -1.0), Osteopenia (T-score between -1.0 and -2.5), or Osteoporosis (T-score at or below -2.5). 10-year Fracture Risk(1): Major Osteoporotic Fracture 13% Hip Fracture 1.1% Reported Risk Factors: [place] (), Neck BMD=0.670, BMI=40.8, previous fracture (1) FRAX(R) Version 3.08. Fracture probability calculated for an untreated patient. Fracture probability may be lower if the patient has received treatment. Clinical Information Provided by Patient: Has had a low trauma fracture Has the following medical conditions: Inflammatory bowel diseases Patient maximum height was 62 Menopause Age: 46 No regular weight bearing exercise Drinks caffeinated beverages Onset of menses at age 14 Number of children 3 Impression: The patient has low bone mass, based on the Total Spine T-score. The patient has an estimated ten-year risk of hip fracture of 1.1% and an estimated ten-year risk of major fracture of 13%, based on the WHO FRAX algorithm. The patient has risk factors, including: previous fracture. Discussion: BONE DENSITY IS LOW AT ONE OR MORE SKELETAL SITES. This patient's lowest T-score is low at one or more skeletal sites. It meets the World Health Organization's (WHO) criteria for ?low bone mass? (T-score between -1.0 and -2.5). The patient's 10-year risk of fracture as calculated by FRAX is less than the threshold where pharmacological therapy is recommended by the National Osteoporosis Foundation (NOF). However, all treatment decisions require clinical judgment and consideration of individual patient factors, including patient preferences, comorbidities, previous drug use, risk factors not captured in the FRAX model (e.g., frailty, falls, vitamin D deficiency, increased bone turnover, interval significant decline in bone density) and possible under or overestimation of fracture risk by FRAX. The patient should follow a healthful lifestyle (good nutrition with adequate calcium and vitamin D, and appropriate weight-bearing exercise). Follow-Up: Consider repe
--- NOTE | ~2021-06-30 | MM_ITS ---
EXAMINATION: MM screening jean BI w con HISTORY: Screening TECHNIQUE: Craniocaudal and mediolateral oblique 3-D tomosynthesis images were obtained and synthetic 2-D images were generated. CAD analysis was submitted and interpreted. COMPARISON: 05/12/2018 BREAST PARENCHYMAL COMPOSITION: There are scattered areas of fibroglandular density. FINDINGS: There is no evidence of suspicious mass, calcification, or architectural distortion to sugg est malignancy in either breast. There has been no suspicious interval change. IMPRESSION: 1. No mammographic evidence of malignancy. 2. Recommend routine screening mammography in one year. BI-RADS Category 1: Negative Reviewed, dictated and finalized at location A.
== END 2021-06-30 09:28 | disposition home or self-care (01) ==
PROVIDERS: PCP Family Medicine; Visit Provider Family Medicine
DX: Z12.31 Encounter for screening mammogram for malignant neoplasm of breast (principal); Z78.0 Asymptomatic menopausal state; M85.88 Other specified disorders of bone density and structure, other site; M85.851 Other specified disorders of bone density and structure, right thigh; M85.852 Other specified disorders of bone density and structure, left thigh
CPT/HCPCS: 77063; 77067; 77080

== ENCOUNTER 2021-07-15 08:15 | Outpatient (CLI) | payer OTHER, SELFPAY ==
[2021-07-15 08:52] LABS: Basophils Absolute Auto 0.1 K/mm3 (0.0-0.1); Basophils Percent Auto 0.9 % (0.2-1.2); Eosinophils Absolute Auto 0.4 K/mm3 (0-0.3); Eosinophils Percent Auto 6.4 % (0-4.4); Hematocrit 41.7 % (37.0-47.0); Hemoglobin 14.1 g/dL (12.0-15.0); Immature Granulocyte Absolute 0.01 K/mm3 (0.00-0.031); Immature Granulocyte Percent A 0.2 % (0-0.5); Lymphocytes Absolute Auto 1.88 K/mm3 (0.9-3.2); Lymphocytes Percent Auto 28.7 % (18.3-44.2); Mean Corpuscular HGB Conc 33.8 g/dl (32-36); Mean Corpuscular Volume 88.7 fl (80-100); Mean Platelet Volume 8.5 fl (7.4-10.4); Monocytes Absolute Auto 0.5 K/mm3 (0.1-0.6); Monocytes Percent Auto 7.3 % (2.6-8.5); Neutrophils Absolute Auto 3.7 K/mm3 (1.3-6.7); Neutrophils Percent Auto 56.5 % (45.5-73.1); Platelet Count Result 278 k/mm3 (150-375); Red Cell Distribution Width 12.6 % (11.5-14.5); White Blood Count 6.5 K/mm3 (4.5-10.0)
[2021-07-15 09:11] LABS: Alanine Aminotransferase 36 U/L (4-35); Albumin Level 4.3 g/dL (3.5-5.1); Alkaline Phosphatase 120 U/L (38-126); Anion Gap 10 mmol/L (8-16); Aspartate Amino Transferase 44 U/L (14-36); Bilirubin,Total 0.8 mg/dL (0.2-1.3); Blood Urea Nitrogen 6 mg/dL (7-17); Calcium 9.1 mg/dL (8.4-10.2); Carbon Dioxide 22 mmol/L (22-30); Chloride 104 mmol/L (98-107); Cholesterol 216 mg/dL (0-200); Estimated Glomerular Filt Rate > 60; Glucose 121 mg/dL (65-110); HDL Direct 62 mg/dL; Sodium 136 mmol/L (137-145); Triglycerides 194 mg/dL (<150)
[2021-07-15 09:22] LABS: LDL Cholesterol Direct 120 mg/dL
== END 2021-07-15 08:16 | disposition home or self-care (01) ==
PROVIDERS: PCP Family Medicine; Visit Provider Physician Assistant
DX: I10 Essential (primary) hypertension (principal); Z13.220 Encounter for screening for lipoid disorders
CPT/HCPCS: 36415; 80053; 80061; 85025

== ENCOUNTER 2021-10-12 17:32 | Emergency (ER) | payer OTHER, SELFPAY ==
[2021-10-12 18:10] VITALS: BP 160/94; PULSE 88; RESP 24; TEMP 37; O2SAT 95
[2021-10-12] MEDS: methylPREDNISolone SOD SUCC 125 MG VIAL IM (18:14)
[2021-10-12 18:16] VITALS: BP 161/83; PULSE 89; RESP 23; O2SAT 95
--- NOTE | 2021-10-12 18:34 | ED.ABDPAIN ---
HPI - Abdominal Pain General Chief Complaint: Unspecified Stated Complaint: crohns flare up Source: patient Mode of arrival: ambulatory Limitations: no limitations History of Present Illness HPI narrative: patient is under lot of stress. Her has been ill and is at home recently having some surgery. Then her cat that was 12 years old. This has flared her Crohn's disease in given her other areas of tendinitis that she gets with her Crohn's flare up. MD elicited complaint: abdominal pain Pertinent past history: other (crohn's DZ) Onset (ago): day(s) (1) Pain Consistency: constant Location: diffuse Severity: moderate Quality: cramping and aching Radiation: none Migration to: no migration Exacerbating factors: eating Relieving factors: nothing Associated symptoms: denies other symptoms Related Data Home Medications Medication Instructions Recorded Confirmed ustekinumab 45 mg/0.5 mL 45 mg SUBCUT ONCE 09/08/21 10/12/21 subcutaneous solution Allergies Allergy/AdvReac Type Severity Reaction Status Date / Time peanut Allergy Severe Anaphylactic Verified 09/24/21 10:22 Shock cyclobenzaprine Allergy Mild HYPERACTIVI Verified 09/24/21 10:22 TY latex Allergy Mild Rash Verified 09/24/21 10:22 lisinopril Allergy Mild cough Verified 09/24/21 10:22 hydrocodone AdvReac Mild N/V Verified 09/24/21 10:22 hydromorphone [From Dilaudid] AdvReac Vomiting Verified 09/24/21 10:22 COCONUT Allergy Mild Hives / Uncoded 09/24/21 10:22 Red Face METALS Allergy Mild Hives / Uncoded 09/24/21 10:22 Red Face Review of Systems Review of Systems: All systems reviewed & are unremarkable except as noted in HPI and below Gastrointestinal: Gastrointestinal: Reports as per HPI Neurologic: Reports vertigo (for 1 week worse with hea movement changes) [facility] Past Medical History Medical History Arthritis Benign reactive hypertension Chronic diarrhea Crohn's disease Degenerative joint disease Dyspepsia Dysphagia Ileitis, terminal Incisional hernia without obstruction or gangrene Non compliance w medication regimen GREGORIA (obstructive sleep apnea) Tobacco abuse Umbilical hernia Surgical History Surgical History History of colon resection 2019 History of colonoscopy History of neck surgery Tubal ligation status Family History Family History Father Diabetes mellitus Malignant neoplasm of prostate Hypertension Family history of diabetes mellitus in first degree relative Family history of malignant neoplasm of urinary bladder Family history of heart disease in male family member before age 55 Mother Diabetes mellitus Family history of kidney disease Patient's mother is Other Family history of cardiovascular disease Social History Social History Social History: Smoking packs per day: 0.5 Smoking cigarettes per day: 10.0 Years smoked: 30 Smoking pack-years: 15.00 Smoking status: Former smoker Tobacco type: cigarettes Second hand tobacco smoke exposure: No Smoking end date: 01/31/21 Alcohol intake: never Substance use: never Substance use type: does not use Gender identity (if verbalized by the patient): Female Sexual Orientation (if Verbalized by the Patient): Straight or Heterosexual Spiritual care concerns: No Agree to blood products: Yes Exam Const: General: healthy appearing, no acute distress and alert Nutritional Appearance: well nourished and obese morbidly obese Orientation/consciousness: patient oriented x3 HENMT: Head: normal to inspection Ears: external ears normal and TM's normal bilaterally Face and sinus: normal facial exam Mouth: Yes moist mucous membranes Eyes: Conjunctivae: conjunctivae normal
[2021-10-12] MEDS: MECLIZINE HCL 25 MG TABLET PO (18:42)
[2021-10-12 19:26] VITALS: BP 146/86; PULSE 80; RESP 16; O2SAT 100
== END 2021-10-12 19:28 | disposition home or self-care (01) ==
PROVIDERS: Emergency Provider Emergency Medicine; PCP Family Medicine
DX: K50.10 Crohn's disease of large intestine without complications (principal); H81.10 Benign paroxysmal vertigo, unspecified ear
CPT/HCPCS: 96372; 99283; A9270; J2930

== ENCOUNTER 2021-10-26 16:46 | Outpatient (CLI) | payer OTHER, SELFPAY ==
[2021-10-26 17:17] LABS: Hematocrit 45.5 % (37.0-47.0); Hemoglobin 15.3 g/dL (12.0-15.0); Mean Corpuscular HGB Conc 33.6 g/dl (32-36); Mean Corpuscular Hemoglobin 29.9 pg (26-34); Mean Corpuscular Volume 88.9 fl (80-100); Mean Platelet Volume 8.5 fl (7.4-10.4); Platelet Count Result 260 k/mm3 (150-375); Red Blood Count 5.12 M/mm3 (4.2-5.4); Red Cell Distribution Width 12.8 % (11.5-14.5); White Blood Count 13.1 K/mm3 (4.5-10.0)
[2021-10-26 17:29] LABS: Alanine Aminotransferase 44 U/L (4-35); Albumin Level 4.6 g/dL (3.5-5.1); Alkaline Phosphatase 136 U/L (38-126); Anion Gap 10 mmol/L (8-16); Aspartate Amino Transferase 31 U/L (14-36); Bilirubin,Total 0.6 mg/dL (0.2-1.3); Blood Urea Nitrogen 10 mg/dL (7-17); CRP < 0.5 mg/dL (<1.0); Calcium 9.5 mg/dL (8.4-10.2); Carbon Dioxide 24 mmol/L (22-30); Chloride 102 mmol/L (98-107); Estimated Glomerular Filt Rate > 60; Glucose 132 mg/dL (65-110); Sodium 136 mmol/L (137-145)
[2021-10-26 18:43] LABS: Erythrocyte Sedimentation Rate 13 mm/hr (0-20)
== END 2021-10-26 16:47 | disposition home or self-care (01) ==
LOC: ANHLAB 16:48
PROVIDERS: PCP Family Medicine; Visit Provider Internal Medicine Gastroenterology
DX: K50.10 Crohn's disease of large intestine without complications (principal); K52.9 Noninfective gastroenteritis and colitis, unspecified
CPT/HCPCS: 36415; 80053; 85027; 85652; 86140

== ENCOUNTER 2021-11-19 12:10 | Emergency (ER) | payer OTHER, SELFPAY ==
--- NOTE | ~2021-11-19 | CT_ITS ---
EXAMINATION: CT abdomen pelvis w con DATE: 11/19/2021 13:24 INDICATION: Epigastric abdominal pain, posterior abdominal pain. History of Crohn's. TECHNIQUE: Computed tomography (CT) of the abdomen and pelvis was performed with 100 cc Omnipaque 350 intravenous contrast. Automated exposure control and iterative reconstruction technique were employe d. Exam dose: 1272.71 mGy-cm total exam DLP. COMPARISON: 03/25/2021 CT abdomen pelvis FINDINGS: The lung bases are clear. Normal heart size. No pericardial or pleural effusion. The liver, gallbladder, bile ducts, pancreas, pancreatic duct are unremarkable. There are multiple calcified sp lenic granulomas. No splenomegaly. Normal morphology of the adrenal glands. No renal mass lesion or urinary tract calculus or hydroureteronephrosis. The uterus, adnexal areas and urinary bladder are unremarkable. Postoperative changes are noted in th e ileocolic area; history of Crohn's disease. Usual bowel wall thickening, pneumatosis, bowel obstruction, mesenteric inflammation or edema or intr aperitoneal free air is noted. Diffuse idiopathic skeletal hyperostosis of the thoracic and upper lumbar spine. No suspicious osteol ytic or osteoblastic lesions. IMPRESSION: Status post ileocolic resection/anastomosis; no bowel obstruction or bowel wall thickeni ng or inflammation is noted Reviewed, dictated and finalized at Location A. Reviewed, dictated and finalized at location B. N BUILDING ENGINEER IMPRESSION: Status post ileocolic resection/anastomosis; no bowel obstruction or bowel wall thickening or inflammation is noted
--- NOTE | ~2021-11-19 | US_ITS ---
EXAMINATION: US abdomen limited EXAM DATE: 11/19/2021 15:53 INDICATION: RUQ pain and tenderness to palp. TECHNIQUE: Multiple grayscale and Doppler images of the abdomen right upper quadrant were obtained (b y a technologist who performed the scan) and subsequently reviewed. There is no prior study for kala lozada. FINDINGS: The pancreatic head and body are normal in appearance. The pancreatic tail is not visualized. There is echogenic liver parenchyma, hepatic steatosis. There are no focal liver lesions identified. Th ere is no evidence of intrahepatic biliary duct dilation. Portal venous flow was seen in the hepatop edal, normal direction and has normal Doppler waveform. No right-sided hydronephrosis. Common bile duct measures 4 mm, which is normal. The gallbladder wall is normal in thickness, with ex pected amount of distention. No sonographic evidence of pericholecystic fluid. There is no cholelit hiases. Technologist performing exam reports patient did not demonstrate sonographic Barakat's sign. Please note that this sign is less reliable in patients who have received pain medication. IMPRESSION: 1. Hepatic steatosis. 2. Unremarkable gallbladder. Reviewed, dictated and finalized at location G. OPERATIONS MANAGER
--- NOTE | ~2021-11-19 | XR_ITS ---
EXAMINATION: XR chest 2V DATE: 11/19/2021 13:18 INDICATION: Epigastric pain and vomiting. Concern for aspiration. TECHNIQUE: PA and lateral views of the chest were obtained. COMPARISON: Chest radiograph dated 12/16/2017 FINDINGS: Calcite nodules at the right lung base consistent with old granulomatous disease. No other airspace o pacities, pulmonary edema, pleural effusion or pneumothorax. The cardiomediastinal silhouette is norm al. Mild thoracic spondylosis with bridging osteophytes at multiple levels consistent with diffuse id iopathic skeletal hyperostosis (DISH). Discectomies with prosthetic disc placement at a couple levels in the mid cervical spine. IMPRESSION: 1. No acute cardiopulmonary disease. Reviewed, dictated and finalized at location A. RITY MOTHER
[2021-11-19 12:19] VITALS: BP 151/47; PULSE 98; RESP 18; TEMP 37.2; O2SAT 99
[2021-11-19 12:45] LABS: Basophils Percent Auto 0.7 % (0.2-1.2); Eosinophils Absolute Auto 0.2 K/mm3 (0-0.3); Eosinophils Percent Auto 2.8 % (0-4.4); Hematocrit 45.2 % (37.0-47.0); Immature Granulocyte Absolute 0.01 K/mm3 (0.00-0.031); Immature Granulocyte Percent A 0.2 % (0-0.5); Lymphocytes Absolute Auto 1.39 K/mm3 (0.9-3.2); Lymphocytes Percent Auto 24.6 % (18.3-44.2); Mean Corpuscular HGB Conc 33.2 g/dl (32-36); Mean Corpuscular Hemoglobin 29.8 pg (26-34); Mean Corpuscular Volume 89.7 fl (80-100); Mean Platelet Volume 8.3 fl (7.4-10.4); Monocytes Absolute Auto 0.7 K/mm3 (0.1-0.6); Monocytes Percent Auto 12.8 % (2.6-8.5); Neutrophils Absolute Auto 3.3 K/mm3 (1.3-6.7); Neutrophils Percent Auto 58.9 % (45.5-73.1); Platelet Count Result 285 k/mm3 (150-375); Red Blood Count 5.04 M/mm3 (4.2-5.4); White Blood Count 5.6 K/mm3 (4.5-10.0)
[2021-11-19 12:57] LABS: Alanine Aminotransferase 49 U/L (4-35); Albumin Level 4.6 g/dL (3.5-5.1); Alkaline Phosphatase 161 U/L (38-126); Anion Gap 7 mmol/L (8-16); Aspartate Amino Transferase 60 U/L (14-36); Bilirubin,Total 0.6 mg/dL (0.2-1.3); Blood Urea Nitrogen 10 mg/dL (7-17); Calcium 9.6 mg/dL (8.4-10.2); Carbon Dioxide 27 mmol/L (22-30); Chloride 104 mmol/L (98-107); Estimated CRCL calculation 65 ml/min; Estimated Glomerular Filt Rate > 60; Glucose 123 mg/dL (65-110); Lipase 81 U/L (23-300); Potassium 3.9 mmol/L (3.4-5.0); Sodium 138 mmol/L (137-145)
--- NOTE | 2021-11-19 13:01 | ED.ABDPAIN ---
HPI - Abdominal Pain General Chief Complaint: Abdominal Pain Stated Complaint: abd pain Crohn's Time Seen by Provider: 11/19/21 12:28 Source: patient History of Present Illness HPI narrative: 7-year-old female presenting to the emergency department for evaluation of abdominal pain. Patient does have a history of Crohn's. Patient states over the last week she has had increased epigastric pain with associated nausea and vomiting. Patient is concerned that she possibly aspirated. Patient does report increased she is right flank pain. Related Data Home Medications Medication Instructions Recorded Confirmed ustekinumab 45 mg/0.5 mL 45 mg SUBCUT ONCE 09/08/21 11/19/21 subcutaneous solution Allergies Allergy/AdvReac Type Severity Reaction Status Date / Time peanut Allergy Severe Anaphylactic Verified 09/24/21 10:22 Shock cyclobenzaprine Allergy Mild HYPERACTIVI Verified 09/24/21 10:22 TY latex Allergy Mild Rash Verified 09/24/21 10:22 lisinopril Allergy Mild cough Verified 09/24/21 10:22 hydrocodone AdvReac Mild N/V Verified 09/24/21 10:22 hydromorphone [From Dilaudid] AdvReac Vomiting Verified 09/24/21 10:22 COCONUT Allergy Mild Hives / Uncoded 09/24/21 10:22 Red Face METALS Allergy Mild Hives / Uncoded 09/24/21 10:22 Red Face Review of Systems Review of Systems: CONSTITUTIONAL: Denies fever, chills, or sweats. EYES: Denies visual changes, redness, or discharge. ENT: Denies rhinorrhea, congestion, sore throat, or otalgia. CARDIOVASCULAR: Denies chest pain, palpitations, or edema. RESPIRATORY: Denies cough or dyspnea. GASTROINTESTINAL: Right-sided abdominal pain GENITOURINARY: Denies dysuria or hematuria. SKIN: Denies rash or itching. MUSCULOSKELETAL: Denies back pain, joint pain, or myalgia. NEUROLOGIC: Denies headache, numbness, or weakness. PSYCHIATRIC: Denies anxiety or depression. All systems reviewed & are unremarkable except as noted in HPI and below PMFSH Past Medical History Medical History Arthritis Benign reactive hypertension Chronic diarrhea Crohn's disease Degenerative joint disease Dyspepsia Dysphagia Ileitis, terminal Incisional hernia without obstruction or gangrene Non compliance w medication regimen GREGORIA (obstructive sleep apnea) Tobacco abuse Umbilical hernia Surgical History Surgical History History of colon resection 2019 History of colonoscopy History of neck surgery Tubal ligation status Family History Family History Father Diabetes mellitus Malignant neoplasm of prostate Hypertension Family history of diabetes mellitus in first degree relative Family history of malignant neoplasm of urinary bladder Family history of heart disease in male family member before age 55 Mother Diabetes mellitus Family history of kidney disease Patient's mother is Other Family history of cardiovascular disease Social History Social History Social History: Smoking packs per day: 0.5 Smoking cigarettes per day: 10.0 Years smoked: 30 Smoking pack-years: 15.00 Smoking status: Former smoker Tobacco type: cigarettes Second hand tobacco smoke exposure: No Smoking end date: 01/31/21 Alcohol intake: never Substance use: never Substance use type: does not use Gender identity (if verbalized by the patient): Female Sexual Orientation (if Verbalized by the Patient): Straight or Heterosexual Spiritual care concerns: No Agree to blood products: Yes Exam Narrative: APPEARANCE: Well appearing, no pain, no distress, well-nourished. HEAD: normocephalic, atraumatic. NECK: Supple. No adenopathy, no masses. RESPIRATORY: Airway patent, respirations nonlabored. Clear to auscultation bilaterally, no rales, rhonc
[2021-11-19] MEDS: fentaNYL CITRATE INJ (*CRX) 100 MCG/2 ML VIAL 50 MCG IV PUSH ×2 (13:29→15:20)
[2021-11-19] MEDS: ONDANSETRON INJ 4 MG/2 ML VIAL IV PUSH (13:29)
[2021-11-19 14:11] LABS: Add Urine Microscopic? NO; Appearance Urine Clear (Clear); Bilirubin Urine Negative (Negative); Blood Urine Negative (Negative); Color Urine Yellow (Yellow); Glucose Urine UA Negative (Negative); Ketones Urine Negative (Negative); Leukocyte Esterase Ur Negative LEU/UL (Negative); Nitrate Urine Negative (Negative); Protein Urine Negative (Negative); Specific Grav Ur 1.024 (1.001-1.035); Urobilinogen Urine Negative mg/dL (<2.0)
[2021-11-19 15:56] VITALS: BP 149/87; PULSE 90; RESP 16; O2SAT 98
== END 2021-11-19 16:24 | disposition home or self-care (01) ==
PROVIDERS: Emergency Medicine; Emergency Provider Emergency Medicine; PCP Family Medicine
DX: R10.11 Right upper quadrant pain (principal); K76.0 Fatty (change of) liver, not elsewhere classified; Z87.891 Personal history of nicotine dependence; M19.90 Unspecified osteoarthritis, unspecified site
CPT/HCPCS: 36415; 71046; 74177; 76705; 80053; 81003; 83605; 83690; 85025; 96374; 96375; 96376; 99284; J2405; J3010; Q9967

== ENCOUNTER 2022-03-02 17:36 | Emergency (ER) | payer OTHER, SELFPAY ==
--- NOTE | ~2022-03-02 | CT_ITS ---
EXAMINATION: CT abdomen pelvis w con INDICATION: Left lower quadrant pain, history of Crohn's TECHNIQUE: Computed tomographic images of the abdomen and pelvis were obtained after the administrati on of 100 cc of Omnipaque 300 intravenous contrast. The dose-length product (DLP) was 1168.25 mGy-cm. Automated exposure control and iterative reconstruction technique were employed. COMPARISON: 11/19/2021 FINDINGS: Minimal dependent atelectasis is present in the lung bases. The heart size is normal. Punct ate calcifications in an otherwise normal spleen likely represent healed granulomatous disease. The l iver, pancreas, gallbladder, and adrenal glands are normal. The kidneys are unremarkable. There is ca lcified atherosclerosis of the aorta and many of the other arteries. No pathologically enlarged abdom inal or pelvic lymph nodes are identified. There is no free intraperitoneal gas or evidence of bowel obstruction. There are surgical changes at the ileocecal junction. There appears to be a mild strictu re at the terminal ileum. An intramural fibroid is noted in the uterus. There is mild lumbar spondylo sis. IMPRESSION: 1. No CT correlate for the patient's symptoms. 2. Possible mild stricturing of the terminal ileum near the ileocecal junction. Reviewed, dictated and finalized at location F.
[2022-03-02 17:41] VITALS: BP 165/96; PULSE 90; RESP 14; TEMP 36.3; O2SAT 99
--- NOTE | 2022-03-02 17:53 | ED.ABDPAIN ---
HPI - Abdominal Pain General Chief Complaint: Abdominal Pain Stated Complaint: hip/side pain Time Seen by Provider: 03/02/22 17:56 Source: patient History of Present Illness HPI narrative: 61-year-old female with a history of terminal ileitis diagnosed in 2012, SBO in 04/2019 status post ileocolic resection with ileocolic anastomosis with ongoing diarrhea secondary to Crohn's ileitis( diagnosed after colonoscopy), Incisional hernia status post repair with mesh presents to the ER with -- left lower quadrant abdominal pain for the past 7 days and worse for the past 2 days. no nausea/ vomiting. No fever. No abdominal distension. -- chronic diarrhea. She has chronic 15-20 stools per day. the patient had been on Pentasa and Stelara without much improvement. She was started on Remicade 4 weeks ago. She had 2 rounds of Remicade and developed generalized diffuse rash after his 2nd IV Remicade. MD elicited complaint: abdominal pain Pertinent past history: other ( Crohn's ileitis) Onset (ago): week(s) ( pain for the past 1 week) Pain Consistency: constant Location: LLQ Severity: severe Quality: cramping Radiation: RLQ Exacerbating factors: nothing Relieving factors: nothing Associated symptoms: diarrhea and dysuria Related Data Patient : No Home Medications Medication Instructions Recorded Confirmed ustekinumab 45 mg/0.5 mL 45 mg subcut ONCE 09/08/21 03/02/22 subcutaneous solution (Stelara) Allergies Allergy/AdvReac Type Severity Reaction Status Date / Time peanut Allergy Severe Anaphylactic Verified 03/02/22 17:56 Shock cyclobenzaprine Allergy Mild HYPERACTIVI Verified 03/02/22 17:56 TY latex Allergy Mild Rash Verified 03/02/22 17:56 lisinopril Allergy Mild cough Verified 03/02/22 17:56 hydrocodone AdvReac Mild N/V Verified 03/02/22 17:56 hydromorphone [From Dilaudid] AdvReac Vomiting Verified 03/02/22 17:56 COCONUT Allergy Mild Hives / Uncoded 03/02/22 17:56 Red Face METALS Allergy Mild Hives / Uncoded 03/02/22 17:56 Red Face Review of Systems Review of Systems: All systems reviewed & are unremarkable except as noted in HPI and below Constitutional: Constitutional: Reports as per HPI and Reports no additional constitutional complaints Eyes: Eyes: Reports as per HPI and Reports no additional eye complaints ENT: Reports system reviewed and no additional complaints, except as documented and Reports as per HPI Cardiovascular: Cardiovascular: Reports as per HPI and Reports no additional cardiovascular complaints Respiratory: Respiratory: Reports as per HPI and Reports no additional respiratory complaints Gastrointestinal: Gastrointestinal: Reports as per HPI, Reports no additional gastrointestinal complaints, Reports abdominal pain and Reports diarrhea Genitourinary: Genitourinary: Reports no additional female genitourinary complaints and Reports as per HPI Musculoskeletal: Musculoskeletal: Reports no additional musculoskeletal complaints and Reports arthralgias Integumentary/Breasts: Skin/Breast: Reports system reviewed and no additional complaints, except as docu and Reports as per HPI Neurologic: Reports system reviewed and no additional complaints, except as documented and Reports as per HPI Psychiatric: Psychiatric: Reports no additional psychiatric complaints and Reports as per HPI Endocrine: Endocrine: Reports no additional endocrine complaints and Reports as per HPI Hematologic/Lymphatic: Hematologic/Lymphatic: Reports no additional hematologic/lymphatic complaints and Reports as per HPI Allergic/Immunologic: Allergic/Immunologic: Reports no additional allergic/immunologic complaints and Reports as per HPI [facility] Past Medical History Medical History Arthritis Benign reactive hypertension Chronic diarrhea Crohn's disease Degenerative joint disease Dyspepsia Dysphagia Ileitis, terminal Incisional hernia without o
[2022-03-02] MEDS: LACTATED RINGERS 1,000 ML 999 ML IV CONT (18:35)
--- NOTE | 2022-03-02 18:39 | PC.NURSE ---
PT IS HAVING LAB WORK OBTAINED AT THIS TIME. IVF INFUSING WITHOUT DIFFICULTY. WILL CONTINUE TO MONITOR.
[2022-03-02 19:07] LABS: Basophils Absolute Auto 0.08 K/mm3 (0.00-0.10); Basophils Percent Auto 1.2 % (0.0-1.0); Eosinophils Absolute Auto 0.19 K/mm3 (0.02-0.50); Eosinophils Percent Auto 2.9 % (1.0-6.0); Hematocrit 49.5 % (35.0-49.0); Hemoglobin 15.2 g/dL (12.0-15.0); Immature Granulocyte Absolute 0.01 K/mm3 (0.00-0.00); Immature Granulocyte Percent A 0.2 % (0.0-0.0); Immature Platelet Fraction Pct 1.4 % (1.0-7.0); Lymphocytes Absolute Auto 2.93 K/mm3 (1.10-4.50); Lymphocytes Percent Auto 45.4 % (18.0-42.0); Mean Corpuscular HGB Conc 30.7 g/dL (32.0-36.0); Mean Corpuscular Hemoglobin 29.2 pg (27.0-31.0); Mean Platelet Volume 9.4 fl (9.2-11.8); Monocytes Absolute Auto 0.47 K/mm3 (0.10-0.90); Monocytes Percent Auto 7.3 % (2.0-11.0); Neutrophils Absolute Auto 2.8 K/mm3 (1.7-7.2); Platelet Count Result 196 K/mm3 (150-420); Red Blood Count 5.21 M/mm3 (4.20-5.40); Red Cell Distribution Width 12.7 % (11.6-14.4); White Blood Count 6.5 K/mm3 (4.8-10.8)
[2022-03-02 19:10] LABS: Add Urine Microscopic? NO; Appearance Urine Clear (Clear); Bilirubin Urine Negative (Negative); Blood Urine Negative (Negative); Color Urine Light Yellow (Yellow); Glucose Urine UA Negative (Negative); Ketones Urine Negative (Negative); Leukocyte Esterase Ur Negative (Negative); Nitrate Urine Negative (Negative); Protein Urine Negative (Negative); Urobilinogen Urine 0.2 mg/dL (0.2-1.0); pH Urine 5.5 (5.0-8.0)
[2022-03-02 19:13] VITALS: BP 157/100; PULSE 82; RESP 20; O2SAT 99
[2022-03-02 19:22] LABS: Partial Thromboplastin Time 25.8 SEC (23.90-30.70); Prothrombin Time 10.3 Seconds (9.50-12.10)
[2022-03-02 19:31] LABS: Alanine Aminotransferase 51 U/L (14-59); Albumin Level 3.5 g/dL (3.4-5.0); Alkaline Phosphatase 120 U/L (46-116); Anion Gap 9 mmol/L (8-16); Aspartate Amino Transferase 26 U/L (15-37); Bilirubin,Total 0.5 mg/dL (0.00-1.00); Blood Urea Nitrogen 9 mg/dL (7-18); CRP < 0.2 mg/dL (0.0-0.9); Calcium 9.1 mg/dL (8.5-10.1); Carbon Dioxide 25 mmol/L (21-32); Chloride 103 mmol/L (98-108); Estimated CRCL calculation 82 ml/min; Estimated Glomerular Filt Rate > 60; Glucose 83 mg/dL (70-99); NT Pro B Type Natriuretic Pept 74 pg/mL (0-125); Osmolality Calculated 281 mOsm/kg (285-295); Potassium 3.7 mmol/L (3.5-5.1); Sodium 137 mmol/L (136-145); Total Protein 7.5 g/dL (6.4-8.2)
[2022-03-02] MEDS: ONDANSETRON INJ 4 MG/2 ML VIAL IV PUSH (19:32)
[2022-03-02 19:33] LABS: SARS-CoV-2 Ag Negative (Negative)
[2022-03-02] MEDS: MORPHINE SULFATE (*CRX) 2 MG/ML INJ IV PUSH (19:33)
[2022-03-02 19:44] LABS: Lactic Acid Reflex 1.6 mmol/L (0.4-2.0)
[2022-03-02 19:51] LABS: Lipase 103 U/L (73-393); Magnesium 1.9 mg/dL (1.8-2.4); Troponin I 8.1 ng/L (0.00-60.4); Uric Acid 5.2 mg/dL (2.6-6.0)
[2022-03-02 20:45] VITALS: BP 144/87; PULSE 87; RESP 20; O2SAT 98
[2022-03-02 22:02] VITALS: BP 138/65; PULSE 82; RESP 18; TEMP 36.5; O2SAT 98
== END 2022-03-02 22:12 | disposition home or self-care (01) ==
PROVIDERS: Emergency Provider Internal Medicine Critical Care Medicine; PCP Family Medicine
DX: R10.9 Unspecified abdominal pain (principal); K50.00 Crohn's disease of small intestine without complications; Z20.822 Contact with and (suspected) exposure to COVID-19
CPT/HCPCS: 36415; 74177; 80053; 81003; 83605; 83690; 83735; 83880; 84484; 84550; 85025; 85055; 85610; 85730; 86140; 87426; 96361; 96374; 96375; 99284; C9803; J2270; J2405; J7120; Q9967

== ENCOUNTER 2022-03-05 11:35 | Outpatient (CLI) | payer OTHER, SELFPAY ==
--- NOTE | ~2022-03-05 | XR_ITS ---
EXAMINATION: XR lumbar spine 2-3V, XR sacroiliac joints min 3V, XR thoracic spine 3V DATE: 03/05/2022 12:40 INDICATION: Spondylosis without myelopathy or radiculopathy TECHNIQUE: 1. AP, lateral and lateral swimmer's views of the thoracic spine were obtained. 2. AP, lateral and coned-down lateral lumbosacral views of the lumbar spine were obtained. 3. AP and left and right oblique views of the bilateral sacroiliac joints were obtained. COMPARISON: CT abdomen and pelvis dated 03/02/2022 and two-view chest radiograph dated 11/19/2021 FINDINGS: Thoracic and lumbar spine: Mild thoracic kyphosis and mild upper thoracic levocurvature. Normal alignment of the lumbar spine. C hronic mild anterior wedging at T7 and T11-L1. Multilevel mild disc height loss from T2-T3 through L1 -L2 and mild disc height loss at L4-L5. There are bridging osteophytes at multiple levels in the spin e, consistent with diffuse idiopathic skeletal hyperostosis (DISH). Moderate lower lumbar facet osteo arthritis. Disc replacements at C3-C4 and C4-C5. Visualized portions of the lungs are clear. Heart si ze is normal. Sacroiliac joints: Bone alignment is normal at the pelvis. Mild bilateral hip and sacroiliac osteoarthritis. No erosions or subarticular sclerosis to suggest inflammatory sacroiliitis. Mild osteitis pubis. Bowel anastomot ic suture lines in the right lower quadrant. IMPRESSION: 1. Mild thoracic and lumbar spondylosis. 2. Mild bilateral hip and sacroiliac osteoarthritis. 2. Reviewed, dictated and finalized at location B. IMPRESSION: 1. Mild thoracic and lumbar spondylosis. 2. Mild bilateral hip and sacroiliac osteoarthritis. 2. IMPRESSION: 1. Mild thoracic and lumbar spondylosis. 2. Mild bilateral hip and sacroiliac osteoarthritis. 2.
== END 2022-03-05 11:36 | disposition home or self-care (01) ==
PROVIDERS: PCP Family Medicine; Visit Provider Internal Medicine
DX: M47.812 Spondylosis without myelopathy or radiculopathy, cervical region (principal); M47.816 Spondylosis without myelopathy or radiculopathy, lumbar region; M47.814 Spondylosis without myelopathy or radiculopathy, thoracic region; K50.10 Crohn's disease of large intestine without complications; Z79.899 Other long term (current) drug therapy; Z71.89 Other specified counseling; M43.09 Spondylolysis, multiple sites in spine; M16.0 Bilateral primary osteoarthritis of hip
CPT/HCPCS: 72072; 72100; 72202

== ENCOUNTER 2022-03-05 14:38 | Outpatient (CLI) | payer OTHER, SELFPAY ==
[2022-03-05 15:13] LABS: CRP < 0.2 mg/dL (0.0-0.9)
[2022-03-05 16:13] LABS: Erythrocyte Sedimentation Rate 18 mm/hr (0-20)
[2022-03-11 22:43] LABS: Calprotectin, Stool 73 mcg/g
== END 2022-03-05 14:39 | disposition home or self-care (01) ==
PROVIDERS: PCP Family Medicine; Visit Provider Nurse Practitioner Family
DX: K50.10 Crohn's disease of large intestine without complications (principal)
CPT/HCPCS: 36415; 83993; 85025; 85652; 86140; 87045; 87177; 87209; 87324; 87427

== ENCOUNTER 2022-05-17 18:19 | Emergency (ER) | payer SELFPAY ==
[2022-05-17] VITALS (17 sets, daily range): BP systolic 128–145; BP diastolic 57–78; PULSE 108; RESP 16; TEMP 36.6; O2SAT 95–99
--- NOTE | ~2022-05-17 | CT_ITS ---
EXAMINATION: CT abdomen pelvis w con DATE: 05/17/2022 23:48 INDICATION: History of Crohn's disease. Right upper and left lower quadrant pain. TECHNIQUE: Computed tomography (CT) of the abdomen and pelvis was performed with 100 cc Omnipaque 350 intravenous contrast. The dose-length product was 1136.57 mGy-cm. Automated exposure control and ite rative reconstruction technique were employed. COMPARISON: CT dated 03/02/2022 FINDINGS: Lung bases are unremarkable. Heart size normal. No significant pleural or pericardial effus ion. There are calcified granulomas of the spleen. Fatty infiltration of the liver. Gallbladder is pr esent. The pancreas, adrenal glands and kidneys are unremarkable. Gallbladder is present. There are s urgical changes of right hemicolectomy with ileocolic anastomosis. Just proximal to the anastomosis t here is mild thickening of the small bowel with mural enhancement, compatible with active Crohn's dis ease. No evidence for obstruction. Mild lumbar spondylosis. IMPRESSION: 1. Mild thickening of the distal small bowel with mural enhancement, compatible with active Crohn's d isease. No obstruction. No evidence for perforation. Reviewed, dictated and finalized at location B. IMPRESSION: 1. Mild thickening of the distal small bowel with mural enhancement, compatible with active Crohn's disease. No obstruction. No evidence for perforation.
[2022-05-17 18:35] LABS: Basophils Absolute Auto 0.1 K/mm3 (0.0-0.1); Basophils Percent Auto 0.8 % (0.2-1.2); Eosinophils Absolute Auto 0.1 K/mm3 (0-0.3); Eosinophils Percent Auto 1.6 % (0-4.4); Hematocrit 46.4 % (37.0-47.0); Hemoglobin 15.5 g/dL (12.0-15.0); Immature Granulocyte Absolute 0.03 K/mm3 (0.00-0.031); Immature Granulocyte Percent A 0.4 % (0-0.5); Lymphocytes Absolute Auto 2.36 K/mm3 (0.9-3.2); Lymphocytes Percent Auto 27.6 % (18.3-44.2); Mean Corpuscular HGB Conc 33.4 g/dl (32-36); Mean Corpuscular Hemoglobin 30.6 pg (26-34); Mean Corpuscular Volume 91.7 fl (80-100); Mean Platelet Volume 8.5 fl (7.4-10.4); Monocytes Absolute Auto 0.7 K/mm3 (0.1-0.6); Monocytes Percent Auto 8.3 % (2.6-8.5); Neutrophils Absolute Auto 5.2 K/mm3 (1.3-6.7); Neutrophils Percent Auto 61.3 % (45.5-73.1); Platelet Count Result 333 k/mm3 (150-375); Red Blood Count 5.06 M/mm3 (4.2-5.4); Red Cell Distribution Width 13.4 % (11.5-14.5); White Blood Count 8.6 K/mm3 (4.5-10.0)
[2022-05-17 20:30] LABS: Appearance Urine Clear (Clear); Bilirubin Urine 1+ (Negative); Blood Urine Negative (Negative); Color Urine Yellow (Yellow); Glucose Urine UA Negative (Negative); Ketones Urine Negative (Negative); Leukocyte Esterase Ur Negative LEU/UL (Negative); Nitrate Urine Negative (Negative); Protein Urine Trace mg/dL (Negative); Specific Grav Ur >= 1.030 (1.001-1.035); Urobilinogen Urine 0.2 mg/dL (<2.0); pH Urine 5.5 (5.0-9.0)
[2022-05-17 20:36] LABS: Bacteria Urine Trace /hpf; Mucus Urine Heavy /lpf; Squamous Epithelial Cell Urine Many /hpf (Few)
[2022-05-17 20:37] LABS: Add Urine Microscopic? YES
[2022-05-17 21:10] LABS: Alanine Aminotransferase 58 U/L (6-35); Albumin Level 4.3 g/dL (3.5-5.1); Alkaline Phosphatase 160 U/L (38-126); Anion Gap 11 mmol/L (8-16); Aspartate Amino Transferase 46 U/L (14-36); Bilirubin,Total 0.7 mg/dL (0.2-1.3); Blood Urea Nitrogen 12 mg/dL (7-17); Calcium 9.7 mg/dL (8.4-10.2); Carbon Dioxide 28 mmol/L (22-30); Chloride 98 mmol/L (98-107); Estimated Glomerular Filt Rate > 60; Glucose 118 mg/dL (65-110); Lipase 71 U/L (23-300); Potassium 3.3 mmol/L (3.4-5.0); Sodium 137 mmol/L (137-145)
--- NOTE | 2022-05-17 22:05 | PC.NURSE ---
Patient ambulatory to BR without assistance.
--- NOTE | 2022-05-17 22:38 | ED.ABDPAIN ---
HPI - Abdominal Pain General Chief Complaint: Abdominal Pain <MOO Reagan Last Filed: 05/18/22 02:32> Stated Complaint: abd pain <MOO Reagan Last Filed: 05/18/22 02:32> Time Seen by Provider: 05/17/22 21:16 <MOO Reagan Last Filed: 05/18/22 02:32> Source: patient <MOO Reagan Last Filed: 05/18/22 02:32> Mode of arrival: ambulatory <MOO Reagan Last Filed: 05/18/22 02:32> Limitations: no limitations <MOO Reagan Last Filed: 05/18/22 02:32> History of Present Illness HPI narrative: Patient is a 61 y/o female who presents to the ED with c/o LLQ ABD pain. Patient reports a Hx of Crohn's disease, but states she has been having issues with paying for her biologic therapies and has been on steroids for the last couple months. She sees Ria Burciaga NP w/ GI. Patient reports over the last 4 days, she has had pain in her left lower quadrant, radiating around to her left lower back, consistent with her previous Crohn's flares. She also reports having nausea and vomiting, and decreased bowel movements. She states she usually has up to 25 bowel movements a day, but yesterday only had 5. Denies any blood in the stool. Denies any known fever at home. She has not tried to call her GI specialist. No recent sick contacts. <MOO Reagan Last Filed: 05/18/22 02:32> Related Data Allergies/Adverse Reactions: Allergies Allergy/AdvReac Type Severity Reaction Status Date / Time peanut Allergy Severe Anaphylactic Verified 04/20/22 10:12 Shock cyclobenzaprine Allergy Mild HYPERACTIVI Verified 04/20/22 10:12 TY latex Allergy Mild Rash Verified 04/20/22 10:12 lisinopril Allergy Mild cough Verified 04/20/22 10:12 hydrocodone AdvReac Mild N/V Verified 04/20/22 10:12 hydromorphone [From Dilaudid] AdvReac Vomiting Verified 04/20/22 10:12 palm oil Allergy Intermediate Hives Uncoded 04/20/22 10:12 COCONUT Allergy Mild Hives / Uncoded 04/20/22 10:12 Red Face METALS Allergy Mild Hives / Uncoded 04/20/22 10:12 Red Face <Anaid Rodriguez PA-C - Last Filed: 05/18/22 02:32> Review of Systems Review of Systems: CONSTITUTIONAL: Denies fever, chills, sweats. CARDIOVASCULAR: Denies chest pain. RESPIRATORY: Denies dyspnea. GASTROINTESTINAL: Reports left lower quadrant abdominal pain, nausea, vomiting, decreased bowel movements. Denies constipation or rectal bleeding. MUSCULOSKELETAL: Reports pain to left lower back. <Anaid Rodriguez PA-C - Last Filed: 05/18/22 02:32> All systems reviewed & are unremarkable except as noted in HPI and below <Anaid Rodriguez PA-C - Last Filed: 05/18/22 02:32> [facility] Past Medical History Medical History: Medical History Arthritis Benign reactive hypertension Chronic diarrhea Crohn's colitis Crohn's disease Crohn's ileitis Degenerative joint disease 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 Dyspepsia Dysphagia Ileitis, terminal Incisional hernia without obstruction or gangrene Inflammatory arthritis Non compliance w medication regimen GREOGRIA (obstructive sleep apnea) Tobacco abuse Umbilical hernia <Anaid Rodriguez PA-C - Last Filed: 05/18/22 02:32> Surgical History Surgical History: Surgical History History of colon resection 2019 History of colonoscopy History of neck surgery Tubal ligation status <Anaid Rodriguez PA-C - Last Filed: 05/18/22 02:32> Family History Family History: Family History Father Diabetes mellitus Malignant neoplasm of prostate Hypertension Family history of diabetes mellitus in first degree relative Family history of malignant neoplasm of urinary bladder Family history of heart disease in male family member before age
[2022-05-17] MEDS: MORPHINE SULFATE (*CRX) 4 MG/ML INJ IV PUSH (23:23)
[2022-05-17] MEDS: FAMOTIDINE 20 MG/2 ML VIAL IV PUSH (23:23)
[2022-05-17] MEDS: ONDANSETRON INJ 4 MG/2 ML VIAL IV PUSH (23:23)
[2022-05-17] MEDS: SODIUM CHLORIDE 0.9% IV 1,000 ML 999 ML IV CONT (23:24)
--- NOTE | 2022-05-17 23:30 | PC.NURSE ---
Patient report given to TYLER Kincaid. All questions answered and care of patient transferred.
--- NOTE | 2022-05-17 23:37 | PC.NURSE ---
Patient off unit to CT.
[2022-05-18 00:21] VITALS: O2SAT 92
[2022-05-18 00:34] VITALS: O2SAT 93
[2022-05-18 01:03] VITALS: O2SAT 95
[2022-05-18 01:15] VITALS: O2SAT 97
[2022-05-18] MEDS: POTASSIUM CHLORIDE 20 MEQ TABLET 40 MEQ PO (01:16)
[2022-05-18 01:35] VITALS: BP 140/79; PULSE 82; RESP 16; O2SAT 98
== END 2022-05-18 01:37 | disposition home or self-care (01) ==
PROVIDERS: Emergency Medicine; Emergency Provider Emergency Medicine; PCP Family Medicine
DX: K50.90 Crohn's disease, unspecified, without complications (principal); M19.90 Unspecified osteoarthritis, unspecified site; I10 Essential (primary) hypertension; M47.812 Spondylosis without myelopathy or radiculopathy, cervical region; M47.816 Spondylosis without myelopathy or radiculopathy, lumbar region; M47.814 Spondylosis without myelopathy or radiculopathy, thoracic region; G47.33 Obstructive sleep apnea (adult) (pediatric); Z90.49 Acquired absence of other specified parts of digestive tract; Z87.891 Personal history of nicotine dependence
CPT/HCPCS: 36415; 74177; 80053; 81001; 83690; 85025; 87077; 87086; 87186; 96361; 96374; 96375; 99284; A9270; J2270; J2405; J7030; Q9967

== ENCOUNTER 2022-05-20 13:44 | Inpatient (IN) | payer SELFPAY ==
[2022-05-20 14:08] VITALS: BP 151/102; PULSE 109; RESP 19; O2SAT 100
[2022-05-20 14:39] LABS: Basophils Absolute Auto 0.1 K/mm3 (0.0-0.1); Basophils Percent Auto 0.7 % (0.2-1.2); Eosinophils Absolute Auto 0.2 K/mm3 (0-0.3); Eosinophils Percent Auto 2.3 % (0-4.4); Hematocrit 42.6 % (37.0-47.0); Hemoglobin 14.6 g/dL (12.0-15.0); Immature Granulocyte Absolute 0.03 K/mm3 (0.00-0.031); Immature Granulocyte Percent A 0.4 % (0-0.5); Lymphocytes Absolute Auto 1.79 K/mm3 (0.9-3.2); Lymphocytes Percent Auto 24.7 % (18.3-44.2); Mean Corpuscular HGB Conc 34.3 g/dl (32-36); Mean Corpuscular Hemoglobin 30.9 pg (26-34); Mean Corpuscular Volume 90.1 fl (80-100); Mean Platelet Volume 8.3 fl (7.4-10.4); Monocytes Absolute Auto 0.6 K/mm3 (0.1-0.6); Monocytes Percent Auto 7.7 % (2.6-8.5); Neutrophils Absolute Auto 4.7 K/mm3 (1.3-6.7); Neutrophils Percent Auto 64.2 % (45.5-73.1); Platelet Count Result 322 k/mm3 (150-375); Red Blood Count 4.73 M/mm3 (4.2-5.4); Red Cell Distribution Width 13.4 % (11.5-14.5); White Blood Count 7.3 K/mm3 (4.5-10.0)
[2022-05-20 15:06] LABS: Alanine Aminotransferase 44 U/L (6-35); Albumin Level 4.2 g/dL (3.5-5.1); Alkaline Phosphatase 115 U/L (38-126); Anion Gap 9 mmol/L (8-16); Aspartate Amino Transferase 45 U/L (14-36); Bilirubin,Total 0.6 mg/dL (0.2-1.3); Blood Urea Nitrogen 9 mg/dL (7-17); Calcium 9.1 mg/dL (8.4-10.2); Carbon Dioxide 26 mmol/L (22-30); Chloride 101 mmol/L (98-107); Estimated CRCL calculation 91 ml/min; Estimated Glomerular Filt Rate > 60; Glucose 136 mg/dL (65-110); Lipase 73 U/L (23-300); Potassium 3.8 mmol/L (3.4-5.0); Sodium 136 mmol/L (137-145)
[2022-05-20 15:42] VITALS: BP 159/102; PULSE 106; RESP 18; O2SAT 98
--- NOTE | 2022-05-20 15:54 | ED.GENADULT ---
HPI - General Adult General Chief complaint: Abdominal Pain Stated complaint: abd pain, n/v/d Time Seen by Provider: 05/20/22 15:39 Source: patient Mode of arrival: ambulatory Limitations: no limitations History of Present Illness HPI narrative: 61-year-old with a history of Crohn's, hypertension, depression here with complaints of for diarrhea and lower abdominal discomfort with occasional nausea and vomiting. Patient states that she was seen here in the emergency room, had a CT scan which showed mild inflammation in the distal colon consistent with Crohn's disease but no definitive abscess. Patient was discharged home however patient states that she was unable to pay for medication as she has not received her nursing home money. Patient states that she has been having constant diarrhea associated with some nausea and vomiting intermittently. She denies any fevers. Patient states that she went to see her primary doctor this morning and was later referred to the ER. Patient presently denies any fever or chills. No history of any blood in the stool. She endorses Dr. Turner as her safety investigator. Related Data Allergies Allergy/AdvReac Type Severity Reaction Status Date / Time peanut Allergy Severe Anaphylactic Verified 05/20/22 12:55 Shock cyclobenzaprine Allergy Mild HYPERACTIVI Verified 05/20/22 12:55 TY latex Allergy Mild Rash Verified 05/20/22 12:55 lisinopril Allergy Mild cough Verified 05/20/22 12:55 hydrocodone AdvReac Mild N/V Verified 05/20/22 12:55 hydromorphone [From Dilaudid] AdvReac Vomiting Verified 05/20/22 12:55 palm oil Allergy Intermediate Hives Uncoded 05/20/22 12:55 COCONUT Allergy Mild Hives / Uncoded 05/20/22 12:55 Red Face METALS Allergy Mild Hives / Uncoded 05/20/22 12:55 Red Face Review of Systems Review of Systems: All systems reviewed & are unremarkable except as noted in HPI and below Constitutional: Constitutional: Reports no additional constitutional complaints Eyes: Eyes: Reports no additional eye complaints ENT: Reports system reviewed and no additional complaints, except as documented Cardiovascular: Cardiovascular: Reports no additional cardiovascular complaints Respiratory: Respiratory: Reports no additional respiratory complaints Gastrointestinal: Gastrointestinal: Reports as per HPI Musculoskeletal: Musculoskeletal: Reports no additional musculoskeletal complaints Integumentary/Breasts: Skin/Breast: Reports system reviewed and no additional complaints, except as docu PMFSH Past Medical History Medical History Arthritis Benign reactive hypertension Chronic diarrhea Crohn's colitis Crohn's disease Crohn's ileitis Degenerative joint disease 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 Dyspepsia Dysphagia Ileitis, terminal Incisional hernia without obstruction or gangrene Inflammatory arthritis Non compliance w medication regimen GREGORIA (obstructive sleep apnea) Tobacco abuse Umbilical hernia Surgical History Surgical History History of colon resection 2019 History of colonoscopy History of neck surgery Tubal ligation status Family History Family History Father Diabetes mellitus Malignant neoplasm of prostate Hypertension Family history of diabetes mellitus in first degree relative Family history of malignant neoplasm of urinary bladder Family history of heart disease in male family member before age 55 Mother Diabetes mellitus Family history of kidney disease Patient's mother is Other Family history of cardiovascular disease Social History Social History Social History: , current smoker Smoking packs per day: 0.25 Smoking cigarettes pe
[2022-05-20] MEDS: SODIUM CHLORIDE 0.9% IV 1,000 ML 150 ML IV CONT (16:01)
[2022-05-20 16:03] LABS: Appearance Urine Clear (Clear); Bilirubin Urine 1+ (Negative); Blood Urine Negative (Negative); Color Urine Yellow (Yellow); Glucose Urine UA Negative (Negative); Ketones Urine Trace mg/dL (Negative); Leukocyte Esterase Ur Negative LEU/UL (Negative); Nitrate Urine Negative (Negative); Protein Urine Negative (Negative); Specific Grav Ur >= 1.030 (1.001-1.035); Urobilinogen Urine 0.2 mg/dL (<2.0)
[2022-05-20 16:16] LABS: Bacteria Urine Trace /hpf; Mucus Urine Few /lpf; Squamous Epithelial Cell Urine Many /hpf (Few); WBC Urine 0-3 /hpf
[2022-05-20 16:17] LABS: Add Urine Microscopic? YES
[2022-05-20 16:47] VITALS: BP 133/59; PULSE 97; RESP 18; O2SAT 21
[2022-05-20] MEDS: SODIUM CHLORIDE 0.9% IV 1,000 ML 125 ML IV CONT (16:47)
[2022-05-20] MEDS: methylPREDNISolone SOD SUCC 125 MG VIAL IV PUSH (17:18)
[2022-05-20] MEDS: PROMETHAZINE HCL 25 MG/ML AMPUL 12.5 MG IV PUSH (17:18)
[2022-05-20] MEDS: SODIUM CHLORIDE 0.9% IV 50 ML 200 ML (17:28)
--- NOTE | 2022-05-20 18:00 | PM.IMHP ---
H&P: HPI History of Present Illness Date/Time: 05/20/22 18:00 Chief Complaint: Abdominal pain and diarrhea. Narrative: This is a 61-year-old female with Crohn's disease who presented to the emergency department from home with complaints of abdominal pain and diarrhea. She recently retired due to ongoing problems with her Crohn's disease and unfortunately she has not received her jail money and she has not been able to afford her biologic. The last several days she has had increasing diarrhea, upwards of 25 watery loose stools a day, in addition to lower abdominal cramping. Yesterday she had nausea and vomiting as well but that has since resolved. She was seen in the ER couple of days ago at which time a CT of the abdomen and pelvis showed mild thickening of the distal small-bowel with mural enhancement consistent with active Crohn's disease. Her symptoms improve with conservative treatment and she was discharged home. Today she saw the nurse practitioner for the GI specialist today in office and she was referred to the ER. CT was not repeated as it was not indicated by exam. Vital signs have been stable since arrival. Her labs were reviewed and they are reassuring. Given her ongoing symptoms however I was asked to admit the patient for supportive care and GI consult. She denies fever, chills, and sweats. He has not had any blood or mucus in the stool. Review of Systems Review of Systems: Twelve systems were reviewed and are negative except for as per HPI. [facility] Past Medical History Medical History (Updated 05/20/22 @ 22:16 by Vera Perez PA-C) Arthritis Crohn's disease Degenerative joint disease Hypertension Incisional hernia without obstruction or gangrene Inflammatory arthritis Obstructive sleep apnea Tobacco abuse Umbilical hernia Surgical History Surgical History (Updated 05/20/22 @ 22:13 by Vera Perez PA-C) History of ankle surgery ORIF right ankle fracture. History of colonoscopy History of fusion of cervical spine History of hernia repair History of right hemicolectomy (2019) History of tubal ligation Family History Family History Father Diabetes mellitus Malignant neoplasm of prostate Hypertension Family history of diabetes mellitus in first degree relative Family history of malignant neoplasm of urinary bladder Family history of heart disease in male family member before age 55 Mother Diabetes mellitus Family history of kidney disease Patient's mother is Other Family history of cardiovascular disease Social History Social History (Updated 05/20/22 @ 22:14 by Vera Perez PA-C) Social History: Surrogate medical decision maker: Reynold Colbert, spouse. Code status: Full code. Smoking packs per day: 0.5 Smoking cigarettes per day: 10.0 Years smoked: 30 Smoking pack-years: 15.00 Smoking status: Current every day smoker Second hand tobacco smoke exposure: No Alcohol intake: never Substance use: never Substance use type: does not use Living arrangements: with family Occupation/Education: retired Spiritual care concerns: No Agree to blood products: Yes Meds Home Medications and Allergies Home Medications Medication Instructions Recorded Confirmed Type losartan 100 1 tablet PO DAILY #30 tabs 09/08/21 05/20/22 Rx mg-hydrochlorothiazide 12.5 mg tablet duloxetine 30 mg capsule,delayed 30 mg PO BID #60 caps 03/05/22 05/20/22 Rx release budesonide 3 mg 9 mg PO DAILY #90 ea 04/20/22 05/20/22 Rx capsule,delayed,extended release Allergies Allergy/AdvReac Type Severity Reaction Status Date / Time peanut Allergy Severe Anaphylactic Verified 05/20/22 12:55 Shock cyclobenzaprine Allergy Mild HYPERACTIVI Verified 05/20/22 12:55 TY infliximab [From Remicade] Allergy Mild Hives Verified 05/20/22 19:01 latex Allergy Mild Rash Verifi
[2022-05-20 18:48] VITALS: BP 151/78; PULSE 102; RESP 19; O2SAT 99
[2022-05-20 18:54] VITALS: BMI 38.0
--- NOTE | 2022-05-20 18:56 | PC.NURSE ---
This patient, Saira Colbert, was admitted to [facility] Surg Room 323-02. Patient/family oriented to hospital policies and general routines including ID bracelet, bed and alarms, visiting hours, pain management, procedures, bathroom and other care routines, personal items, smoking policy, room service/diet, and visiting hours. Information on how to activate the Rapid Response Team has been discussed. Patient/Family are encouraged to report perceived risks to care and to ask questions if they do not understand what they are told or what they should do.
[2022-05-20] MEDS: DICYCLOMINE HCL 10 MG CAPSULE PO (21:37)
[2022-05-20] MEDS: FAMOTIDINE 20 MG/2 ML VIAL IV PUSH (21:37)
[2022-05-20 22:00] VITALS: BP 136/68; PULSE 95; RESP 16; TEMP 36.9; O2SAT 98
[2022-05-20] MEDS: SODIUM CHLORIDE 0.9% IV 1,000 ML 100 ML IV CONT (23:52)
[2022-05-20] MEDS: methylPREDNISolone SOD SUCC 40 MG VIAL IV PUSH (23:52)
[2022-05-20] MEDS: ACETAMINOPHEN 325 MG TABLET 650 MG PO (23:54)
[2022-05-21] MEDS: methylPREDNISolone SOD SUCC 40 MG VIAL IV PUSH ×3 (05:55→17:27)
[2022-05-21 06:00] VITALS: BP 157/73; PULSE 79; RESP 18; TEMP 36.6; O2SAT 100
[2022-05-21 06:57] LABS: Basophils Percent Auto 0.1 % (0.2-1.2); Hematocrit 40.5 % (37.0-47.0); Hemoglobin 13.7 g/dL (12.0-15.0); Immature Granulocyte Absolute 0.06 K/mm3 (0.00-0.031); Immature Granulocyte Percent A 0.7 % (0-0.5); Lymphocytes Percent Auto 10.8 % (18.3-44.2); Mean Corpuscular HGB Conc 33.8 g/dl (32-36); Mean Corpuscular Hemoglobin 30.6 pg (26-34); Mean Corpuscular Volume 90.6 fl (80-100); Mean Platelet Volume 8.4 fl (7.4-10.4); Monocytes Absolute Auto 0.1 K/mm3 (0.1-0.6); Monocytes Percent Auto 1.2 % (2.6-8.5); Neutrophils Absolute Auto 7.3 K/mm3 (1.3-6.7); Neutrophils Percent Auto 87.2 % (45.5-73.1); Platelet Count Result 300 k/mm3 (150-375); Red Blood Count 4.47 M/mm3 (4.2-5.4); Red Cell Distribution Width 13.2 % (11.5-14.5); White Blood Count 8.3 K/mm3 (4.5-10.0)
[2022-05-21 07:18] LABS: Anion Gap 8 mmol/L (8-16); Blood Urea Nitrogen 10 mg/dL (7-17); Calcium 8.4 mg/dL (8.4-10.2); Carbon Dioxide 23 mmol/L (22-30); Chloride 107 mmol/L (98-107); Estimated CRCL calculation 91 ml/min; Estimated Glomerular Filt Rate > 60; Glucose 151 mg/dL (65-110); Potassium 4.2 mmol/L (3.4-5.0); Sodium 138 mmol/L (137-145)
[2022-05-21] MEDS: LOSARTAN POTASSIUM 100 MG TABLET PO (08:38)
[2022-05-21] MEDS: hydroCHLOROthiazide 12.5 MG CAPSULE PO (08:38)
[2022-05-21] MEDS: DULoxetine HCL 30 MG CAPSULE.DR PO ×2 (08:38→17:27)
[2022-05-21] MEDS: ENOXAPARIN 40 MG/0.4 ML SYRINGE SUB-Q (08:38)
[2022-05-21 09:59] VITALS: O2SAT 98
[2022-05-21] MEDS: FAMOTIDINE 20 MG/2 ML VIAL IV PUSH ×2 (10:02→19:50)
[2022-05-21] MEDS: ONDANSETRON INJ 4 MG/2 ML VIAL IV PUSH (10:02)
--- NOTE | 2022-05-21 10:26 | PM.IMPN ---
Progress Note: A&P Assessment and Plan (1) Exacerbation of Crohn's disease: Code(s): K50.90 - Crohn's disease, unspecified, without complications Status: Acute Assessment and Plan: She has been started on Solu-Medrol 60 mg daily. Continue cholestyramine for loose stools. Dr. Gudino has been consulted and his input is greatly appreciated. 05/21: improving, appreciate GI consult recs, needs to get back on her biologic (2) Elevated LFTs: Code(s): R79.89 - Other specified abnormal findings of blood chemistry Status: Acute Assessment and Plan: Mild elevation in AST and ALT, noted on previous labs. Monitor. 05/21: stable (3) Hypertension: Code(s): I10 - Essential (primary) hypertension Status: Acute Assessment and Plan: Blood pressures were reviewed and they are reasonably well controlled. Continue antihypertensives and monitor. 05/21: stable Subjective Date/time seen: 05/21/22 10:26 Interval history: Patient complaining of some abdominal pain. States diarrhea significantly improved, almost completely resolved. Still with some nausea and emesis, much improved. No overnight events noted. No chest pain or shortness of breath. No fevers or chills. Review of Systems Review of Systems: 12 point review of systems was assessed and was negative except as noted in the HPI Exam Narrative: General: No acute distress, alert and oriented per baseline HEENT: Atraumatic, normocephalic, mucous membranes moist CV: Regular rate and rhythm, S1, S2 Lungs: Clear to auscultation bilaterally, no rales or crackles noted, no wheezes, good air entry Abdomen: Soft, nontender, nondistended Extremities: Normal to inspection Skin: No rashes noted, no lesions or wounds seen Psych: Euthymic, normal affect Objective Data Vital Signs Vital Signs: Vital Signs - 24 hr 05/20/22 14:08 05/20/22 15:42 05/20/22 16:47 Temperature Pulse Rate 109 H 106 H 97 Respiratory Rate 19 18 18 Blood Pressure 151/102 H 159/102 H 133/59 L Pulse Oximetry 100 98 21 L Oxygen Delivery Room Air 05/20/22 18:48 05/20/22 22:00 05/20/22 21:30 Temperature 98.4 F Pulse Rate 102 H 95 Respiratory Rate 19 16 Blood Pressure 151/78 H 136/68 Pulse Oximetry 99 98 Oxygen Delivery Room Air 05/21/22 06:00 05/21/22 09:15 05/21/22 09:59 Temperature 98 F Pulse Rate 79 Respiratory Rate 18 Blood Pressure 157/73 H Pulse Oximetry 100 98 Oxygen Delivery Room Air Room Air Intake/Output Intake/Output: Intake & Output 05/18/22 05/19/22 05/20/22 05/21/22 23:59 23:59 23:59 23:59 Intake Total 2049 730 Output Total 700 Balance 2049 30 Meds/Results Medications: Active Medications Generic Name Dose Route Start Last Admin Trade Name Freq PRN Reason Stop Dose Admin Acetaminophen 650 mg 05/20/22 16:07 05/20/22 23:54 Acetaminophen 325 Mg Tablet PO 650 mg Q4H PRN Administration Mild Pain (1-3) or Fever Duloxetine HCl 30 mg 05/21/22 09:00 05/21/22 08:38 Duloxetine Hcl 30 Mg Capsule.Dr PO 30 mg BID KARAN Administration Enoxaparin Sodium 40 mg 05/21/22 09:00 05/21/22 08:38 Enoxaparin 40 Mg/0.4 Ml Syringe SUB-Q 40 mg DAILY KARAN Administration Famotidine 20 mg 05/20/22 21:00 05/21/22 10:02 Famotidine 20 Mg/2 Ml Vial IV PUSH 20 mg Q12HR KARAN Administration Hydrochlorothiazide 12.5 mg 05/21/22 09:00 05/21/22 08:38 Hydrochlorothiazide 12.5 Mg Capsule PO 12.5 mg DAILY KARAN Administration Sodium Chloride 1,000 mls @ 100 mls/hr 05/20/22 16:10 05/20/22 23:52 Normal Saline Iv IV CONT 100 mls/hr .Q10H KARAN Administration Losartan Potassium 100 mg 05/21/22 09:00 05/21/22 08:38 Losartan Potassium 100 Mg Tablet PO 100 mg DAILY KARAN Administration Methylprednisolone Sodium Succinate 40 mg 05/21/22 00:00 05/21/22 05:55 Methylprednisolone Sod Succ 40 Mg Vial IV PUSH 40 mg Q6HR
[2022-05-21] MEDS: SODIUM CHLORIDE 0.9% IV 1,000 ML 100 ML IV CONT ×2 (12:15→21:40)
[2022-05-21 13:56] VITALS: BP 115/55; PULSE 88; RESP 18; TEMP 35.9; O2SAT 99
--- NOTE | 2022-05-21 15:37 | WPDGICN ---
Assessment and Plan Assessment and plan (1) Exacerbation of Crohn's disease: Code(s): K50.90 - Crohn's disease, unspecified, without complications Status: Acute Assessment and Plan: better with iv steroids used stelara and remicade in the past she had a brief period without insurance and could not use budesonide, finally her insurance is active again plan is to start paperwork for sonia as outpatient feeling better now (2) Abdominal pain: Code(s): R10.9 - Unspecified abdominal pain Status: Acute (3) Nausea & vomiting: Code(s): R11.2 - Nausea with vomiting, unspecified Status: Acute Assessment and Plan: improved, advance diet (4) Elevated LFTs: Code(s): R79.89 - Other specified abnormal findings of blood chemistry Status: Acute Assessment and Plan: only mild elevated liver enzymes, imaging with fatty liver monitor (5) Hypertension: Code(s): I10 - Essential (primary) hypertension Status: Acute GI Consult Note Consult date/time: 05/21/22 15:37 Reason for consult: Crohn's, diarrhea HPI: Saira Colbert is a 61 year old female with diagnosis with Crohn disease in 2012 and underwent colonoscopy, terminal ileitis was identified, and confirmed to be Crohn disease. She was admitted to hospital in 04/2019 with abdominal pain and SBO, CAT scan and small bowel series confirmed terminal ileal stricturing, underwent Hand-assisted laparoscopic ileocolic resection with [id number] ileocolic anastomosis, bx showed active ileitis with crohn's. She used to be on pentasa for a year but never worked. 12/2020 egd that was normal and colonoscopy showed disease in ileum (colon bx normal, also found ulcer near anal area) and started on Stelara for approximately 1 year, then used remicade but did not tolerate, recent office visit started on budesonide 9 mg daily and the plan is for her to be on Skyrizi (patient just retired and finally today received news from her insurance that should be able to start process of prior authorization). Recent stool calprotectin slightly elevated at 73 on 03/2022, normal ESR/CRP. She is here with more diarrhea up to 20 times a day and abdominal discomfort, started also on cymbalta because back pain and this helped. Recent CT scan a/p reviewed, Mild thickening of the distal small bowel with mural enhancement, compatible with active Crohn's disease. No obstruction. No evidence for perforation. She is feeling better today, on iv steroids. Review of Systems Constitutional: Constitutional: Denies chills Eyes: Eyes: Denies blurry vision ENT: Reports Normal hearing present Cardiovascular: Cardiovascular: Denies chest pain Respiratory: Respiratory: Denies cough Gastrointestinal: Gastrointestinal: Reports diarrhea Genitourinary: Genitourinary: Denies hematuria Musculoskeletal: Musculoskeletal: Reports back pain Integumentary/Breasts: Skin/Breast: Denies rash Neurologic: Denies confusion Psychiatric: Psychiatric: Denies behavioral changes [facility] Past Medical History Medical History (Updated 05/20/22 @ 22:16 by Vera Perez PA-C) Arthritis Crohn's disease Degenerative joint disease Hypertension Incisional hernia without obstruction or gangrene Inflammatory arthritis Obstructive sleep apnea Tobacco abuse Umbilical hernia Surgical History Surgical History (Updated 05/20/22 @ 22:13 by Vera Perez PA-C) History of ankle surgery ORIF right ankle fracture. History of colonoscopy History of fusion of cervical spine History of hernia repair History of right hemicolectomy (2019) History of tubal ligation Family History Family History Father Diabetes mellitus Malignant neoplasm of prostate Hypertension Family history of diabetes mellitus in first degree relative Family history of malignant neoplasm of urinary bladder Family history of heart d
[2022-05-21 20:00] VITALS: BP 120/64; PULSE 70; RESP 16; TEMP 36.4; O2SAT 96
[2022-05-21 21:53] VITALS: BP 120/64; PULSE 70; RESP 16; TEMP 36.4; O2SAT 96
[2022-05-21 23:54] VITALS: BP 110/60; PULSE 70; RESP 16; TEMP 36.5; O2SAT 97
[2022-05-22] MEDS: methylPREDNISolone SOD SUCC 40 MG VIAL IV PUSH ×3 (01:53→11:40)
[2022-05-22 04:00] VITALS: BP 120/50; PULSE 61; RESP 16; TEMP 36.4; O2SAT 99
[2022-05-22 08:00] VITALS: BP 112/55; PULSE 60; RESP 20; TEMP 36; O2SAT 97
[2022-05-22] MEDS: SODIUM CHLORIDE 0.9% IV 1,000 ML 100 ML IV CONT (08:25)
[2022-05-22] MEDS: FAMOTIDINE 20 MG/2 ML VIAL IV PUSH (08:27)
[2022-05-22] MEDS: LOSARTAN POTASSIUM 100 MG TABLET PO (08:27)
[2022-05-22] MEDS: DULoxetine HCL 30 MG CAPSULE.DR PO (08:27)
[2022-05-22] MEDS: ENOXAPARIN 40 MG/0.4 ML SYRINGE SUB-Q (08:27)
[2022-05-22] MEDS: hydroCHLOROthiazide 12.5 MG CAPSULE PO (09:09)
[2022-05-22 12:00] VITALS: BP 157/68; PULSE 62; RESP 20; TEMP 35.9; O2SAT 99
--- NOTE | 2022-05-22 12:15 | PM.IMPN ---
Progress Note: A&P Assessment and Plan (1) Exacerbation of Crohn's disease: Code(s): K50.90 - Crohn's disease, unspecified, without complications Status: Acute Assessment and Plan: She has been started on Solu-Medrol 60 mg daily. Continue cholestyramine for loose stools. Dr. Gudino has been consulted and his input is greatly appreciated. 05/21: improving, appreciate GI consult recs, needs to get back on her biologic 05/22: Anticipate discharge today or tomorrow, will try to transition to oral steroids when okay with GI (2) Elevated LFTs: Code(s): R79.89 - Other specified abnormal findings of blood chemistry Status: Acute Assessment and Plan: Mild elevation in AST and ALT, noted on previous labs. Monitor. 05/21: stable (3) Hypertension: Code(s): I10 - Essential (primary) hypertension Status: Acute Assessment and Plan: Blood pressures were reviewed and they are reasonably well controlled. Continue antihypertensives and monitor. 05/21: stable Plan DVT prophylaxis with Lovenox GI prophylaxis with PPI Code status full code Subjective Date/time seen: 05/22/22 12:15 Interval history: No overnight events noted. No chest pain or shortness of breath. No nausea, vomiting or diarrhea. No fevers or chills. Review of Systems Review of Systems: 12 point review of systems was assessed and was negative except as noted in the HPI Exam Narrative: General: No acute distress, alert and oriented per baseline HEENT: Atraumatic, normocephalic, mucous membranes moist CV: Regular rate and rhythm, S1, S2 Lungs: Clear to auscultation bilaterally, no rales or crackles noted, no wheezes, good air entry Abdomen: Soft, nontender, nondistended Extremities: Normal to inspection Skin: No rashes noted, no lesions or wounds seen Psych: Euthymic, normal affect Objective Data Vital Signs Vital Signs: Vital Signs - 24 hr 05/21/22 13:56 05/21/22 20:00 05/21/22 21:53 Temperature 96.6 F L 97.6 F 97.6 F Pulse Rate 88 70 70 Respiratory Rate 18 16 16 Blood Pressure 115/55 L 120/64 120/64 Pulse Oximetry 99 96 96 Oxygen Delivery 05/21/22 21:40 05/21/22 23:54 05/22/22 04:00 Temperature 97.7 F 97.6 F Pulse Rate 70 61 Respiratory Rate 16 16 Blood Pressure 110/60 120/50 L Pulse Oximetry 97 99 Oxygen Delivery Room Air 05/22/22 08:45 05/22/22 08:00 Temperature 96.8 F L Pulse Rate 60 Respiratory Rate 20 Blood Pressure 112/55 L Pulse Oximetry 97 Oxygen Delivery Room Air Intake/Output Intake/Output: Intake & Output 05/19/22 05/20/22 05/21/22 05/22/22 23:59 23:59 23:59 23:59 Intake Total 2049 3510 1000 Output Total 1050 Balance 2049 2460 1000 Meds/Results Medications: Active Medications Generic Name Dose Route Start Last Admin Trade Name Freq PRN Reason Stop Dose Admin Acetaminophen 650 mg 05/20/22 16:07 05/20/22 23:54 Acetaminophen 325 Mg Tablet PO 650 mg Q4H PRN Administration Mild Pain (1-3) or Fever Duloxetine HCl 30 mg 05/21/22 09:00 05/22/22 08:27 Duloxetine Hcl 30 Mg Capsule.Dr PO 30 mg BID KARAN Administration Enoxaparin Sodium 40 mg 05/21/22 09:00 05/22/22 08:27 Enoxaparin 40 Mg/0.4 Ml Syringe SUB-Q 40 mg DAILY KARAN Administration Famotidine 20 mg 05/20/22 21:00 05/22/22 08:27 Famotidine 20 Mg/2 Ml Vial IV PUSH 20 mg Q12HR KARAN Administration Hydrochlorothiazide 12.5 mg 05/21/22 09:00 05/22/22 09:09 Hydrochlorothiazide 12.5 Mg Capsule PO 12.5 mg DAILY KARAN Administration Sodium Chloride 1,000 mls @ 100 mls/hr 05/20/22 16:10 05/22/22 08:25 Normal Saline Iv IV CONT 100 mls/hr .Q10H KARAN Administration Acetaminophen 1,000 mg in 100 mls @ 400 mls/hr 05/21/22 19:30 05/21/22 20:02 Ofirmev 1,000 Mg Ivpb IVPB 05/22/22 19:29 Infused Q6H PRN Infusion Pain Rated 4-6 Losartan Potassium 100 mg 05/21/22 09:00 05/22/22 08:27
--- NOTE | 2022-05-22 13:19 | WPDGIPROGNO ---
Progress Note: A&P Assessment and Plan (1) Exacerbation of Crohn's disease: Code(s): K50.90 - Crohn's disease, unspecified, without complications Status: Acute Assessment and Plan: improved and better, she was getting iv steroids she can go home with budesonide (if insurance will pay), otherwise slow prednisone taper patient to call office this coming week to check on status of sonia paperwork and follow-up office in 2-3 weeks (2) Nausea & vomiting: Code(s): R11.2 - Nausea with vomiting, unspecified Status: Acute Assessment and Plan: zofran as needed (already ordered) (3) Abdominal pain: Code(s): R10.9 - Unspecified abdominal pain Status: Acute Assessment and Plan: resolved (4) Elevated LFTs: Code(s): R79.89 - Other specified abnormal findings of blood chemistry Status: Acute Subjective Date/time seen: 05/22/22 13:19 Interval history: she is tolerating meals better but still some nausea, no diarrhea for last 15 hours and feeling like going home. She would like to get zofran at home Review of Systems Review of Systems: All systems reviewed & are unremarkable except as noted in HPI and below Exam Narrative: GENERAL: Well-appearing, well-nourished, and in no acute distress. HEAD: Normocephalic, atraumatic. EYES: PERRLA and EOMI. NECK: Supple. CHEST: Clear to auscultation. No respiratory distress. HEART: Regular rate and rhythm. No murmur heard. Normal peripheral pulses. ABDOMEN: Soft, nontender, nondistended, normal active bowel sounds. EXTREMITIES: Normal range of motion. No edema. SKIN: Warm, dry, no rash. NEURO: No focal deficits. Alert and oriented x3. PSYCH: Normal mood and affect. Objective Data Vital Signs Vital Signs: Vital Signs - 24 hr 05/21/22 13:56 05/21/22 20:00 05/21/22 21:53 Temperature 96.6 F L 97.6 F 97.6 F Pulse Rate 88 70 70 Respiratory Rate 18 16 16 Blood Pressure 115/55 L 120/64 120/64 Pulse Oximetry 99 96 96 Oxygen Delivery 05/21/22 21:40 05/21/22 23:54 05/22/22 04:00 Temperature 97.7 F 97.6 F Pulse Rate 70 61 Respiratory Rate 16 16 Blood Pressure 110/60 120/50 L Pulse Oximetry 97 99 Oxygen Delivery Room Air 05/22/22 08:45 05/22/22 08:00 Temperature 96.8 F L Pulse Rate 60 Respiratory Rate 20 Blood Pressure 112/55 L Pulse Oximetry 97 Oxygen Delivery Room Air Intake/Output Intake/Output: Intake & Output 05/19/22 05/20/22 05/21/22 05/22/22 23:59 23:59 23:59 23:59 Intake Total 2049 3510 1000 Output Total 1050 Balance 2049 2460 1000 Meds/Results Medications: Active Medications Generic Name Dose Route Start Last Admin Trade Name Freq PRN Reason Stop Dose Admin Acetaminophen 650 mg 05/20/22 16:07 05/20/22 23:54 Acetaminophen 325 Mg Tablet PO 650 mg Q4H PRN Administration Mild Pain (1-3) or Fever Duloxetine HCl 30 mg 05/21/22 09:00 05/22/22 08:27 Duloxetine Hcl 30 Mg Capsule.Dr PO 30 mg BID KARAN Administration Enoxaparin Sodium 40 mg 05/21/22 09:00 05/22/22 08:27 Enoxaparin 40 Mg/0.4 Ml Syringe SUB-Q 40 mg DAILY KARAN Administration Famotidine 20 mg 05/20/22 21:00 05/22/22 08:27 Famotidine 20 Mg/2 Ml Vial IV PUSH 20 mg Q12HR KARAN Administration Hydrochlorothiazide 12.5 mg 05/21/22 09:00 05/22/22 09:09 Hydrochlorothiazide 12.5 Mg Capsule PO 12.5 mg DAILY KARAN Administration Sodium Chloride 1,000 mls @ 100 mls/hr 05/20/22 16:10 05/22/22 08:25 Normal Saline Iv IV CONT 100 mls/hr .Q10H KARAN Administration Acetaminophen 1,000 mg in 100 mls @ 400 mls/hr 05/21/22 19:30 05/21/22 20:02 Ofirmev 1,000 Mg Ivpb IVPB 05/22/22 19:29 Infused Q6H PRN Infusion Pain Rated 4-6 Losartan Potassium 100 mg 05/21/22 09:00 05/22/22 08:27 Losartan Potassium 100 Mg Tablet PO 100 mg DAILY KARAN Administration Methylprednisolone Sodium Succinate 40 mg 05/21/22 00:00 05/22/22 11:40 Meth
[2022-05-22] MEDS: PANTOPRAZOLE SODIUM IV 40 MG VIAL IV PUSH (13:46)
--- NOTE | 2022-05-22 14:35 | PM.DS ---
DS: Admitting Diagnosis Discharge Date May 22, 2022 Admitting Diagnosis Abdominal pain with diarrhea DS: Discharge Diagnosis Discharge Diagnosis (1) Exacerbation of Crohn's disease: Code(s): K50.90 - Crohn's disease, unspecified, without complications Status: Acute Assessment and Plan: She has been started on Solu-Medrol 60 mg daily. Continue cholestyramine for loose stools. Dr. Gudino has been consulted and his input is greatly appreciated. 05/21: improving, appreciate GI consult recs, needs to get back on her biologic 05/22: Anticipate discharge today or tomorrow, will try to transition to oral steroids when okay with GI (2) Elevated LFTs: Code(s): R79.89 - Other specified abnormal findings of blood chemistry Status: Acute Assessment and Plan: Mild elevation in AST and ALT, noted on previous labs. Monitor. 05/21: stable (3) Hypertension: Code(s): I10 - Essential (primary) hypertension Status: Acute Assessment and Plan: Blood pressures were reviewed and they are reasonably well controlled. Continue antihypertensives and monitor. 05/21: stable Plan DVT prophylaxis with Lovenox GI prophylaxis with PPI Code status full code DS: Summary Hospital Course Hospital Course: 61-year-old female with past medical history significant for Crohn's disease with abdominal pain diarrhea concerning for Crohn's flare. GI was consulted and agreed, symptoms improved dramatically on IV steroids. She was transitioned to oral steroids and discharged home in good condition. She requested Zofran ODT as well and will be try to go back on budesonide now that insurance has kicked in for her. She will also need to go back on her biologics as an outpatient. Follow-up with GI closely. Time Spent with Patient Time attestation: Total time spent providing and/or coordinating discharge services: Exam Narrative: General: No acute distress, alert and oriented per baseline HEENT: Atraumatic, normocephalic, mucous membranes moist CV: Regular rate and rhythm, S1, S2 Lungs: Clear to auscultation bilaterally, no rales or crackles noted, no wheezes, good air entry Abdomen: Soft, nontender, nondistended Extremities: Normal to inspection Skin: No rashes noted, no lesions or wounds seen Psych: Euthymic, normal affect Discharge Plan Discharge Attending physician on discharge: Rupinder Souza Consulting providers: Norberto Gudino Discharging Clinician: Rupinder Souza Patient Disposition: Home, Self-Care Activity: as tolerated Diet: as tolerated Patient Instructions: Antibiotic Form, How to Stop Smoking (DC) Stand Alone Forms: General Discharge Information Follow-up/Referrals: Norberto Gudino MD [Physician] - Nadya Dover MD [Primary Care Provider] - Discharge Medications: New ondansetron 4 mg tablet,disintegrating 4 mg PO Q8H PRN (Reason: nausea and vomiting) Qty: 90 1RF prednisone 10 mg tablet See Taper PO DAILY 15 Days Qty: 45 0RF Taper: Prednisone Taper from 50 mg;15 days 50 mg DAILY for 3 Days and 0 Hour 40 mg DAILY for 3 Days and 0 Hour 30 mg DAILY for 3 Days and 0 Hour 20 mg DAILY for 3 Days and 0 Hour 10 mg DAILY for 3 Days and 0 Hour Continued duloxetine 30 mg capsule,delayed release(DR/EC) 30 mg PO BID Qty: 60 5RF losartan-hydrochlorothiazide 100-12.5 mg tablet 1 tablet PO DAILY Qty: 30 3RF budesonide 3 mg capsule,delayed,extend.release 9 mg PO DAILY Qty: 90 1RF Date of admission: 05/22/22 12:46 Primary Care Provider: Nadya Dover Admitting Provider: Rupinder Souza Attending physician on admission: Rupinder Souza Condition: Stable
== END 2022-05-22 14:50 | disposition home or self-care (01) | DRG 245 ==
LOC: ANHED 16:40 → ANH3MEDSUR 18:14
PROVIDERS: Emergency Medicine; Admitting Provider Student in an Organized Health Care Education/Training Program; Emergency Provider Family Medicine; PCP Family Medicine; Visit Provider Student in an Organized Health Care Education/Training Program
DX: K50.90 Crohn's disease, unspecified, without complications (principal); R74.01 Elevation of levels of liver transaminase levels; I10 Essential (primary) hypertension; K76.0 Fatty (change of) liver, not elsewhere classified; F17.210 Nicotine dependence, cigarettes, uncomplicated; M19.90 Unspecified osteoarthritis, unspecified site; G47.33 Obstructive sleep apnea (adult) (pediatric); Z90.49 Acquired absence of other specified parts of digestive tract; Z98.1 Arthrodesis status; Z91.14 Patient's other noncompliance with medication regimen
CPT/HCPCS: 36415; 80048; 80053; 81001; 83690; 85025; 96361; 96372; 96374; 96375; 96376; 99285; A9270; C9113; G0378; J0131; J1650; J2405; J2550; J2920; J2930; J7030

== ENCOUNTER 2022-07-06 11:01 | Outpatient (CLI) | payer OTHER, SELFPAY ==
[2022-07-06 11:34] LABS: Hematocrit 41.8 % (37.0-47.0); Hemoglobin 14.4 g/dL (12.0-15.0); Mean Corpuscular HGB Conc 34.4 g/dl (32-36); Mean Corpuscular Hemoglobin 30.4 pg (26-34); Mean Corpuscular Volume 88.4 fl (80-100); Mean Platelet Volume 8.3 fl (7.4-10.4); Platelet Count Result 351 k/mm3 (150-375); Red Blood Count 4.73 M/mm3 (4.2-5.4); Red Cell Distribution Width 12.8 % (11.5-14.5); White Blood Count 8.6 K/mm3 (4.5-10.0)
[2022-07-06 12:06] LABS: Alanine Aminotransferase 22 U/L (6-35); Alkaline Phosphatase 113 U/L (38-126); Anion Gap 11 mmol/L (8-16); Aspartate Amino Transferase 26 U/L (14-36); Bilirubin,Total 0.5 mg/dL (0.2-1.3); Blood Urea Nitrogen 5 mg/dL (7-17); CRP 1.5 mg/dL (<1.0); Carbon Dioxide 26 mmol/L (22-30); Chloride 100 mmol/L (98-107); Estimated Glomerular Filt Rate > 60; Glucose 141 mg/dL (65-110); Sodium 137 mmol/L (137-145)
[2022-07-06 14:59] LABS: Erythrocyte Sedimentation Rate 46 mm/hr (0-20)
[2022-07-06 17:09] LABS: Toxigenic C. Diff NEGATIVE (NEGATIVE)
[2022-07-08 10:24] LABS: Hepatitis B Core Ab Total Nonreactive (Nonreactive)
[2022-07-08 12:21] LABS: NIL 0.02 IU/mL; Quantiferon TB Plus, 1T NEGATIVE (NEGATIVE)
[2022-07-13 19:13] LABS: Calprotectin, Stool 1600 mcg/g
== END 2022-07-06 11:02 | disposition home or self-care (01) ==
LOC: ANHLAB 11:01
PROVIDERS: PCP Family Medicine; Visit Provider Nurse Practitioner Family
DX: K50.90 Crohn's disease, unspecified, without complications (principal)
CPT/HCPCS: 36415; 80053; 83993; 85027; 85652; 86140; 86480; 86704; 87493

== ENCOUNTER 2022-07-30 04:46 | Emergency (ER) | payer OTHER, SELFPAY ==
[2022-07-30 04:59] VITALS: BP 163/96; PULSE 105; RESP 22; TEMP 36.3; O2SAT 97
--- NOTE | 2022-07-30 05:11 | ED.SOB ---
HPI - SOB/Dyspnea General Chief Complaint: Shortness of Breath/Dyspnea Stated Complaint: Sob Source: patient Mode of arrival: ambulatory Limitations: no limitations History of Present Illness HPI Narrative: patient presents with some wheezing and cough currently not short of breath has a history of Crohn's disease is afebrile with no chest pain no nausea vomiting no abdominal pain, wheezing started earlier this evening along with a nonproductive cough no history of asthma patient is a smoker. MD elicited complaint: shortness of breath and cough Onset (ago): hour(s) Related Data Home Medications Medication Instructions Recorded Confirmed duloxetine 60 mg capsule,delayed 120 mg PO BID 07/30/22 07/30/22 release Allergies Allergy/AdvReac Type Severity Reaction Status Date / Time peanut Allergy Severe Anaphylactic Verified 07/06/22 13:23 Shock cyclobenzaprine Allergy Mild HYPERACTIVI Verified 07/06/22 13:23 TY infliximab [From Remicade] Allergy Mild Hives Verified 07/06/22 13:23 latex Allergy Mild Rash Verified 07/06/22 13:23 lisinopril Allergy Mild cough Verified 07/06/22 13:23 hydrocodone AdvReac Mild N/V Verified 07/06/22 13:23 hydromorphone [From Dilaudid] AdvReac Vomiting Verified 07/06/22 13:23 palm oil Allergy Intermediate Hives Uncoded 07/06/22 13:23 COCONUT Allergy Mild Hives / Uncoded 07/06/22 13:23 Red Face METALS Allergy Mild Hives / Uncoded 07/06/22 13:23 Red Face Review of Systems Review of Systems: All systems reviewed & are unremarkable except as noted in HPI and below PMFSH Past Medical History Medical History Arthritis Arthritis in Crohn's disease with complication Crohn's disease Degenerative joint disease Hypertension Incisional hernia without obstruction or gangrene Inflammatory arthritis Obstructive sleep apnea Tobacco abuse Umbilical hernia Surgical History Surgical History History of ankle surgery ORIF right ankle fracture. History of colonoscopy History of fusion of cervical spine History of hernia repair History of right hemicolectomy (2019) History of tubal ligation Family History Family History Father Diabetes mellitus Malignant neoplasm of prostate Hypertension Family history of diabetes mellitus in first degree relative Family history of malignant neoplasm of urinary bladder Family history of heart disease in male family member before age 55 Mother Diabetes mellitus Family history of kidney disease Patient's mother is Other Family history of cardiovascular disease Social History Social History Social History: Surrogate medical decision maker: Reynold Colbert, spouse. Code status: Full code. Smoking packs per day: 0.5 Smoking cigarettes per day: 10.0 Years smoked: 30 Smoking pack-years: 15.00 Smoking status: Current every day smoker Second hand tobacco smoke exposure: No Alcohol intake: never Substance use: never Substance use type: does not use Spiritual care concerns: No Agree to blood products: Yes Exam Const: General: healthy appearing, no acute distress and alert HENMT: Head: normal to inspection Face/Nose/Sinus: Normal external nose present Face and sinus: normal facial exam Mouth: Yes Normal oral and palatal mucosa present Eyes: Conjunctivae: conjunctivae normal Neck: Neck: normal visual inspection, no lymphadenopathy and no meningeal signs Chest: Chest palpation & inspection: normal inspection of the chest Resp: Effort & Inspection: normal respiratory effort Auscultation: clear to auscultation bilaterally and wheezes Cardio: Rate: regular rate Rhythm: regular rhythm GI: GI Palp: Yes Soft to palpation : General: Yes bladder normal to palpati
[2022-07-30] MEDS: cefTRIAXone 1 GM, LIDOCAINE HCL 1% LOCAL INJ 2.1 ML IM (05:15)
[2022-07-30] MEDS: IPRATROPIUM 0.5 MG/ALBUTEROL SULFATE 2.5 MG AMPUL.NEB 3 ML INHALATION (05:20)
[2022-07-30 05:26] VITALS: PULSE 102; RESP 20; O2SAT 97
[2022-07-30 05:29] VITALS: PULSE 103; RESP 20; O2SAT 98
[2022-07-30 05:33] VITALS: BP 155/78; PULSE 100; RESP 20; TEMP 36.6; O2SAT 97
== END 2022-07-30 05:35 | disposition home or self-care (01) ==
PROVIDERS: Emergency Provider Emergency Medicine; PCP Family Medicine
DX: J40 Bronchitis, not specified as acute or chronic (principal)
CPT/HCPCS: 94640; 96372; 99283; J0696

== ENCOUNTER 2022-08-09 16:19 | Emergency (ER) | payer OTHER, MEDICAID, SELFPAY ==
--- NOTE | ~2022-08-09 | XR_ITS ---
EXAMINATION: XR knee LT 3V DATE: 08/09/2022 16:43 INDICATION: Left knee pain. Fall. TECHNIQUE: 3 views of left knee were obtained. COMPARISON: Left knee radiographs 02/04/2018 FINDINGS: Bone alignment is normal. No fracture. There is moderate osteoarthritis of medial compartme nt and mild osteoarthritis of lateral and patellofemoral compartments. No knee joint effusion. IMPRESSION: 1. Moderate left knee osteoarthritis. Reviewed, dictated and finalized at location A. 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
[2022-08-09 16:21] VITALS: BP 140/85; PULSE 109; RESP 16; TEMP 36.3; O2SAT 100
--- NOTE | 2022-08-09 20:59 | ED.LOWEXIN ---
HPI - Extremity Injury (Lower) General Chief Complaint: Extremity Injury, Lower Stated Complaint: left knee pain Time Seen by Provider: 08/09/22 20:40 History of Present Illness HPI Narrative: Patient is a 62-year-old female with a history of arthritis and Crohn's here for evaluation of left knee pain over the past 3 days. Patient states that she twisted the knee about 3 days ago while she was walking, since then has had a gradual development of her pain. States her pain is gone at rest and is worse when she is standing. She has been able to walk but just notes it is painful. Has not attempted any pain medication; tries to avoid NSAIDs due to history of Crohn's. No fevers, chills, nausea, vomiting. Related Data Home Medications Medication Instructions Recorded Confirmed duloxetine 60 mg capsule,delayed 120 mg PO BID 07/30/22 07/30/22 release Allergies Allergy/AdvReac Type Severity Reaction Status Date / Time peanut Allergy Severe Anaphylactic Verified 08/09/22 16:23 Shock cyclobenzaprine Allergy Mild HYPERACTIVI Verified 08/09/22 16:23 TY infliximab [From Remicade] Allergy Mild Hives Verified 08/09/22 16:23 latex Allergy Mild Rash Verified 08/09/22 16:23 lisinopril Allergy Mild cough Verified 08/09/22 16:23 hydrocodone AdvReac Mild N/V Verified 08/09/22 16:23 hydromorphone [From Dilaudid] AdvReac Vomiting Verified 08/09/22 16:23 palm oil Allergy Intermediate Hives Uncoded 08/09/22 16:23 COCONUT Allergy Mild Hives / Uncoded 08/09/22 16:23 Red Face METALS Allergy Mild Hives / Uncoded 08/09/22 16:23 Red Face Review of Systems Review of Systems: Gen.: Denies fevers or chills Eyes: Denies eye pain or visual change ENT: Denies congestion Respiratory: Denies shortness of breath or cough CV: Denies chest pain or palpitations GI: Denies abdominal pain nausea, emesis or diarrhea denies burning, urgency, frequency or hematuria Musculoskeletal: Reports left knee pain. Neuro: Denies numbness, tingling, weakness or focal weakness Skin: Denies rash Except as documented, all other systems reviewed and negative PMFSH Past Medical History Medical History Arthritis Arthritis in Crohn's disease with complication Crohn's disease Degenerative joint disease Hypertension Incisional hernia without obstruction or gangrene Inflammatory arthritis Obstructive sleep apnea Tobacco abuse Umbilical hernia Surgical History Surgical History History of ankle surgery ORIF right ankle fracture. History of colonoscopy History of fusion of cervical spine History of hernia repair History of right hemicolectomy (2019) History of tubal ligation Family History Family History Father Diabetes mellitus Malignant neoplasm of prostate Hypertension Family history of diabetes mellitus in first degree relative Family history of malignant neoplasm of urinary bladder Family history of heart disease in male family member before age 55 Mother Diabetes mellitus Family history of kidney disease Patient's mother is Other Family history of cardiovascular disease Social History Social History Social History: Surrogate medical decision maker: Reynold Colbert, spouse. Code status: Full code. Smoking packs per day: 0.5 Smoking cigarettes per day: 10.0 Years smoked: 30 Smoking pack-years: 15.00 Smoking status: Current every day smoker Second hand tobacco smoke exposure: No Alcohol intake: never Substance use: never Substance use type: does not use Spiritual care concerns: No Agree to blood products: Yes Exam Narrative: APPEARANCE: Well appearing, no pain in distress, well-nourished. Head: Normocephalic and atraumatic. EYES: PERRLA/
[2022-08-09 21:56] VITALS: BP 132/88; PULSE 86; RESP 18; TEMP 36.8; O2SAT 98
== END 2022-08-09 21:58 | disposition home or self-care (01) ==
LOC: ANHED 21:17
PROVIDERS: Emergency Provider Family Medicine; PCP Family Medicine
DX: S83.92XA Sprain of unspecified site of left knee, initial encounter (principal); K50.90 Crohn's disease, unspecified, without complications; I10 Essential (primary) hypertension; G47.33 Obstructive sleep apnea (adult) (pediatric); M19.90 Unspecified osteoarthritis, unspecified site; Z98.1 Arthrodesis status; Z90.49 Acquired absence of other specified parts of digestive tract; F17.210 Nicotine dependence, cigarettes, uncomplicated; X50.9XXA Other and unspecified overexertion or strenuous movements or postures, initial encounter
CPT/HCPCS: 73562; 99283

== ENCOUNTER 2022-12-02 09:26 | Outpatient (CLI) | payer OTHER, SELFPAY ==
[2022-12-02 10:24] LABS: Anion Gap 5 mmol/L (8-16); Blood Urea Nitrogen 4 mg/dL (7-17); Calcium 8.8 mg/dL (8.4-10.2); Carbon Dioxide 30 mmol/L (22-30); Chloride 103 mmol/L (98-107); Cholesterol 195 mg/dL (0-200); Estimated Glomerular Filt Rate > 60; Glucose 111 mg/dL (65-110); HDL Direct 55 mg/dL; Potassium 2.7 mmol/L (3.4-5.0); Sodium 138 mmol/L (137-145); Triglycerides 186 mg/dL (<150)
[2022-12-02 10:27] LABS: LDL Cholesterol Direct 94 mg/dL
[2022-12-02 10:29] LABS: Hemoglobin A1C 5.3 % (<5.7)
[2022-12-02 10:47] LABS: Thyroid Stimulating Hormone 0.883 uIU/mL (0.465-4.680)
== END 2022-12-02 09:27 | disposition home or self-care (01) ==
LOC: ANHLAB 09:28
PROVIDERS: PCP Nurse Practitioner Family; Visit Provider Nurse Practitioner Family
DX: R73.09 Other abnormal glucose (principal); E78.2 Mixed hyperlipidemia
CPT/HCPCS: 36415; 80048; 80061; 83036; 84443

== ENCOUNTER 2022-12-13 09:47 | Outpatient (CLI) | payer OTHER, SELFPAY ==
[2022-12-13 10:58] LABS: Anion Gap 3 mmol/L (8-16); Blood Urea Nitrogen 9 mg/dL (7-17); Calcium 8.8 mg/dL (8.4-10.2); Carbon Dioxide 32 mmol/L (22-30); Chloride 102 mmol/L (98-107); Estimated Glomerular Filt Rate > 60; Glucose 97 mg/dL (65-110); Magnesium 2.1 mg/dL (1.6-2.3); Sodium 137 mmol/L (137-145)
== END 2022-12-13 09:48 | disposition home or self-care (01) ==
PROVIDERS: PCP Nurse Practitioner Family; Visit Provider Nurse Practitioner Family
DX: E87.6 Hypokalemia (principal); R19.7 Diarrhea, unspecified; K50.10 Crohn's disease of large intestine without complications
CPT/HCPCS: 36415; 80048; 83735

== ENCOUNTER 2022-12-13 17:03 | Outpatient (CLI) | payer OTHER, SELFPAY ==
[2022-12-13 16:38] LABS: Hematocrit 44.4 % (37.0-47.0); Hemoglobin 15.2 g/dL (12.0-15.0); Mean Corpuscular HGB Conc 34.2 g/dl (32-36); Mean Corpuscular Hemoglobin 31.1 pg (26-34); Mean Corpuscular Volume 90.8 fl (80-100); Mean Platelet Volume 7.9 fl (7.4-10.4); Platelet Count Result 359 k/mm3 (150-375); Red Blood Count 4.89 M/mm3 (4.2-5.4); Red Cell Distribution Width 14.1 % (11.5-14.5); White Blood Count 11.1 K/mm3 (4.5-10.0)
[2022-12-13 16:40] LABS: Alanine Aminotransferase 18 U/L (6-35); Albumin Level 3.9 g/dL (3.5-5.1); Alkaline Phosphatase 133 U/L (38-126); Anion Gap 4 mmol/L (8-16); Aspartate Amino Transferase 21 U/L (14-36); Bilirubin,Total 0.5 mg/dL (0.2-1.3); Blood Urea Nitrogen 12 mg/dL (7-17); CRP 1.6 mg/dL (<1.0); Calcium 8.8 mg/dL (8.4-10.2); Carbon Dioxide 32 mmol/L (22-30); Chloride 101 mmol/L (98-107); Estimated Glomerular Filt Rate > 60; Glucose 101 mg/dL (65-110); Potassium 4.1 mmol/L (3.4-5.0); Sodium 137 mmol/L (137-145)
[2022-12-13 17:45] LABS: Erythrocyte Sedimentation Rate 38 mm/hr (0-20)
[2022-12-13 21:15] LABS: Toxigenic C. Diff POSITIVE (NEGATIVE)
[2022-12-22 22:07] LABS: Calprotectin, Stool 401 mcg/g
== END 2022-12-13 17:04 | disposition home or self-care (01) ==
PROVIDERS: PCP Nurse Practitioner Family; Visit Provider Nurse Practitioner Family
DX: K50.10 Crohn's disease of large intestine without complications (principal); R19.7 Diarrhea, unspecified; R11.2 Nausea with vomiting, unspecified
CPT/HCPCS: 36415; 80048; 80053; 83735; 83993; 85027; 85652; 86140; 87493

== ENCOUNTER 2023-01-06 10:40 | Outpatient (CLI) | payer OTHER, SELFPAY ==
--- NOTE | ~2023-01-06 | CT_ITS ---
EXAMINATION: CT abdomen pelvis w con INDICATION: Crohn's disease, nausea and vomiting, concern for small bowel obstruction TECHNIQUE: Computed tomographic images of the abdomen and pelvis were obtained after the administrati on of 100 cc of Omnipaque 350 intravenous contrast. The dose-length product (DLP) was 1046.47 mGy-cm. Automated exposure control and iterative reconstruction technique were employed. COMPARISON: None available FINDINGS: The lung bases are clear. The heart size is normal. Punctate calcifications in an otherwise normal spleen likely represent healed granulomatous disease. The liver is diffusely low in attenuati on when compared with the spleen, consistent with hepatic steatosis. There is mild distention of the gallbladder unclear significance. No pericholecystic inflammatory change is identified. The pancreas and adrenal glands are normal. The kidneys are unremarkable. There are surgical changes at the ileoce dorys junction. No free intraperitoneal gas or evidence of bowel obstruction. No pathologically enlarge d abdominal or pelvic lymph nodes are identified. There is mild lumbar spondylosis. IMPRESSION: 1. Mild distention of the gallbladder without additional findings of cholecystitis. Recommend correla tion for right upper quadrant tenderness. Reviewed, dictated and finalized at location L. IMPRESSION: 1. Mild distention of the gallbladder without additional findings of cholecysti tis. Recommend correlation for right upper quadrant tenderness.
== END 2023-01-06 10:41 | disposition home or self-care (01) ==
LOC: ANHIMG 10:41
PROVIDERS: PCP Nurse Practitioner Family; Visit Provider Nurse Practitioner Family
DX: R10.9 Unspecified abdominal pain (principal); R11.2 Nausea with vomiting, unspecified
CPT/HCPCS: 74177; Q9967

== ENCOUNTER 2023-04-27 16:37 | Outpatient (CLI) | payer OTHER, SELFPAY ==
[2023-04-27 17:18] LABS: Hematocrit 45.9 % (37.0-47.0); Hemoglobin 15.5 g/dL (12.0-15.0); Mean Corpuscular HGB Conc 33.8 g/dl (32-36); Mean Corpuscular Hemoglobin 30.6 pg (26-34); Mean Corpuscular Volume 90.7 fl (80-100); Mean Platelet Volume 8.5 fl (7.4-10.4); Platelet Count Result 275 k/mm3 (150-375); Red Blood Count 5.06 M/mm3 (4.2-5.4); Red Cell Distribution Width 12.9 % (11.5-14.5)
[2023-04-27 17:34] LABS: Alanine Aminotransferase 32 U/L (6-35); Albumin Level 4.4 g/dL (3.5-5.1); Alkaline Phosphatase 118 U/L (38-126); Anion Gap 13 mmol/L (8-16); Aspartate Amino Transferase 30 U/L (14-36); Bilirubin,Total 0.7 mg/dL (0.2-1.3); Blood Urea Nitrogen 13 mg/dL (7-17); CRP 0.7 mg/dL (<1.0); Calcium 9.4 mg/dL (8.4-10.2); Carbon Dioxide 22 mmol/L (22-30); Chloride 105 mmol/L (98-107); Estimated Glomerular Filt Rate > 60; Glucose 135 mg/dL (65-110); Potassium 3.5 mmol/L (3.4-5.0); Sodium 140 mmol/L (137-145)
[2023-04-27 18:29] LABS: Erythrocyte Sedimentation Rate 14 mm/hr (0-20)
== END 2023-04-27 16:38 | disposition home or self-care (01) ==
LOC: ANHLAB 16:39
PROVIDERS: PCP Nurse Practitioner Family; Visit Provider Nurse Practitioner Family
DX: K50.90 Crohn's disease, unspecified, without complications (principal)
CPT/HCPCS: 36415; 80053; 85027; 85652; 86140

== ENCOUNTER 2023-04-28 10:56 | Outpatient (NON) | payer OTHER, SELFPAY ==
[2023-05-07 23:37] LABS: Calprotectin, Stool 669 mcg/g
== END 2023-04-28 10:57 | disposition home or self-care (01) ==
PROVIDERS: PCP Nurse Practitioner Family; Visit Provider Nurse Practitioner Family
DX: K50.10 Crohn's disease of large intestine without complications (principal)
CPT/HCPCS: 83993

== ENCOUNTER 2023-06-07 15:24 | Emergency (ER) | payer OTHER, SELFPAY ==
--- NOTE | ~2023-06-07 | US_ITS ---
EXAMINATION: US venous doppler [facility] DATE: 06/07/2023 16:21 INDICATION: Bilateral lower limb swelling TECHNIQUE: Rodas scale images without and with compression and Doppler images of the bilateral lower e xtremity veins were obtained. COMPARISON: None FINDINGS: No sonographic correlate is identified for the areas of swelling in the legs. The right common femoral vein, profunda femoral vein, femoral vein, popliteal vein, peroneal trunk, p osterior tibial veins, and greater saphenous vein are patent. The left common femoral vein, profunda femoral vein, femoral vein, popliteal vein, peroneal trunk, po sterior tibial veins, and greater saphenous vein are patent. IMPRESSION: 1. Patent bilateral lower extremity veins. No evidence of deep venous thrombosis. Reviewed, dictated and finalized at location L. IMPRESSION: 1. Patent bilateral lower extremity veins. No evidence of deep venous thrombosi s.
[2023-06-07 15:43] VITALS: BP 181/93; PULSE 98; RESP 16; TEMP 36.6; O2SAT 100
[2023-06-07 20:42] VITALS: BP 157/101; PULSE 89; RESP 18; O2SAT 97
--- NOTE | 2023-06-07 21:14 | ED.EXTPRO ---
HPI - Extremity Problem General Chief complaint: Extremity Problem,Nontraumatic Stated complaint: LUMPS TO LEGS Time Seen by Provider: 06/07/23 20:37 History of Present Illness HPI Narrative: 63-year-old female present to the emergency department for evaluation of lower extremity nodules. Patient states she began noticing the nodules after starting Humira 3 months ago. Patient was sent in for evaluation to rule out DVT. Patient denies any chest pain shortness of breath or fevers. Patient denies any falls or injuries. Related Data Allergies Allergy/AdvReac Type Severity Reaction Status Date / Time peanut Allergy Severe Anaphylactic Verified 06/07/23 20:41 Shock cyclobenzaprine Allergy Mild HYPERACTIVI Verified 06/07/23 20:41 TY infliximab [From Remicade] Allergy Mild Hives Verified 06/07/23 20:41 latex Allergy Mild Rash Verified 06/07/23 20:41 lisinopril Allergy Mild cough Verified 06/07/23 20:41 contact metal agent Allergy Hives Verified 06/07/23 20:41 hydrocodone AdvReac Mild N/V Verified 06/07/23 20:41 hydromorphone [From Dilaudid] AdvReac Vomiting Verified 06/07/23 20:41 palm oil Allergy Intermediate Hives Uncoded 06/07/23 20:41 COCONUT Allergy Mild Hives / Uncoded 06/07/23 20:41 Red Face Delodium AdvReac Mild Vomiting Uncoded 04/28/23 11:17 Review of Systems Review of Systems: All systems reviewed & are unremarkable except as noted in HPI and below PMFSH Past Medical History Medical History (Updated 06/08/23 @ 00:01 by Jas Forman) Allergies Arthritis Arthritis in Crohn's disease with complication BMI 39.0-39.9,adult Crohn's disease Degenerative joint disease Diarrhea Elevated glucose Fatigue Grieving Headache Hypertension Hypokalemia Incisional hernia without obstruction or gangrene Inflammatory arthritis Nausea and vomiting Obstructive sleep apnea Pain, joint, multiple sites Skin lesion Tobacco abuse Umbilical hernia Yeast infection Surgical History Surgical History History of ankle surgery ORIF right ankle fracture. History of bowel resection History of colonoscopy History of fusion of cervical spine History of hernia repair History of right hemicolectomy (2019) History of tubal ligation Family History Family History Father Diabetes mellitus Malignant neoplasm of prostate Hypertension Family history of diabetes mellitus in first degree relative Family history of malignant neoplasm of urinary bladder Family history of heart disease in male family member before age 55 Mother Diabetes mellitus Family history of kidney disease Patient's mother is Other Family history of cardiovascular disease Social History Social History (Updated 05/27/23 @ 09:39 by Nupur Delgado MA) Social History: Surrogate medical decision maker: Reynold Colbert, spouse. Code status: Full code. Smoking packs per day: 0.5 Smoking cigarettes per day: 10.0 Years smoked: 30 Smoking pack-years: 15.00 Smoking status: Current every day smoker Second hand tobacco smoke exposure: No Alcohol intake: never Substance use: never Substance use type: does not use Lack of Transportation: No Lack of Food: Never True Current Housing: I Have Housing Concerned About Future Housing: No Difficulty Paying Gas/Electric Bills: YES Difficulty Paying for Meds: No Currently Unemployed: No Education: Trade/Vocational Certificate Difficulty w/ Childcare or Family Care: No Living arrangements: with family Occupation/Education: retired Spiritual care concerns: No Agree to blood products: Yes Exam Narrative: APPEARANCE: Well appearing, no pain, no distress, well-nourished. HEAD: normocephalic, atraumatic. EYES: PERRLA/EOMI, conjunctivae clear. NOSE: Normal no drainage NECK: Supple. No adenopathy, no masses. 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
== END 2023-06-07 21:28 | disposition home or self-care (01) ==
PROVIDERS: Emergency Provider Emergency Medicine; PCP Nurse Practitioner Family
DX: L52 Erythema nodosum (principal); I10 Essential (primary) hypertension; F17.210 Nicotine dependence, cigarettes, uncomplicated
CPT/HCPCS: 93970; 99284

== ENCOUNTER 2023-07-01 14:19 | Outpatient (CLI) | payer OTHER, SELFPAY ==
[2023-07-01 19:29] LABS: Toxigenic C. Diff POSITIVE (NEGATIVE)
[2023-07-09 22:49] LABS: Calprotectin, Stool 131 mcg/g
== END 2023-07-01 14:20 | disposition home or self-care (01) ==
LOC: ANHLAB 14:20
PROVIDERS: PCP Nurse Practitioner Family; Visit Provider Nurse Practitioner Family
DX: R11.2 Nausea with vomiting, unspecified (principal); R19.7 Diarrhea, unspecified
CPT/HCPCS: 83993; 87045; 87427; 87449; 87493

== ENCOUNTER 2023-07-28 13:55 | Outpatient (CLI) | payer OTHER, SELFPAY ==
[2023-07-28 15:35] LABS: Anion Gap 10 mmol/L (8-16); Blood Urea Nitrogen 8 mg/dL (7-17); Calcium 9.2 mg/dL (8.4-10.2); Carbon Dioxide 23 mmol/L (22-30); Chloride 103 mmol/L (98-107); Cholesterol 196 mg/dL (0-200); Estimated Glomerular Filt Rate > 60; Glucose 220 mg/dL (65-110); HDL Direct 67 mg/dL; Potassium 3.1 mmol/L (3.4-5.0); Sodium 136 mmol/L (137-145); Triglycerides 173 mg/dL (<150)
[2023-07-28 15:46] LABS: LDL Cholesterol Direct 93 mg/dL
[2023-07-28 18:41] LABS: Toxigenic C. Diff POSITIVE (NEGATIVE)
[2023-07-28 18:48] LABS: Hemoglobin A1C 5.2 % (<5.7)
[2023-08-03 18:52] LABS: Calprotectin, Stool 430 mcg/g
== END 2023-07-28 13:56 | disposition home or self-care (01) ==
PROVIDERS: Internal Medicine Gastroenterology; PCP Nurse Practitioner Family; Visit Provider Nurse Practitioner Family
DX: Z00.00 Encounter for general adult medical examination without abnormal findings (principal); R73.09 Other abnormal glucose; E78.5 Hyperlipidemia, unspecified; K50.10 Crohn's disease of large intestine without complications; R19.7 Diarrhea, unspecified
CPT/HCPCS: 36415; 80048; 80061; 83036; 83993; 87045; 87427; 87449; 87493

== ENCOUNTER 2023-07-29 12:33 | Outpatient (CLI) | payer OTHER, SELFPAY ==
[2023-07-29 13:29] LABS: Appearance Urine Clear (Clear); Bilirubin Urine Negative (Negative); Blood Urine Negative (Negative); Color Urine Yellow (Yellow); Glucose Urine UA Negative (Negative); Ketones Urine Negative (Negative); Leukocyte Esterase Ur Negative LEU/UL (Negative); Nitrate Urine Negative (Negative); Protein Urine Negative (Negative); Urobilinogen Urine 0.2 mg/dL (<2.0)
[2023-07-29 13:51] LABS: Add Urine Microscopic? NO
== END 2023-07-29 12:34 | disposition home or self-care (01) ==
PROVIDERS: PCP Nurse Practitioner Family; Visit Provider Nurse Practitioner Family
DX: N39.0 Urinary tract infection, site not specified (principal)
CPT/HCPCS: 81003

== ENCOUNTER 2023-08-01 14:27 | Outpatient (CLI) | payer OTHER, SELFPAY ==
[2023-08-01 15:05] LABS: Anion Gap 5 mmol/L (8-16); Blood Urea Nitrogen 6 mg/dL (7-17); Calcium 8.8 mg/dL (8.4-10.2); Carbon Dioxide 28 mmol/L (22-30); Chloride 104 mmol/L (98-107); Estimated Glomerular Filt Rate > 60; Glucose 159 mg/dL (65-110); Potassium 3.6 mmol/L (3.4-5.0); Sodium 137 mmol/L (137-145)
== END 2023-08-01 14:28 | disposition home or self-care (01) ==
PROVIDERS: PCP Nurse Practitioner Family; Visit Provider Nurse Practitioner Family
DX: E87.6 Hypokalemia (principal)
CPT/HCPCS: 36415; 80048

== ENCOUNTER 2023-09-19 13:09 | Observation (INO) | payer OTHER, SELFPAY ==
[2023-09-19] VITALS (12 sets, daily range): BP systolic 104–156; BP diastolic 51–86; PULSE 101–124; RESP 15–21; TEMP 37.1–37.9; O2SAT 93–100
--- NOTE | ~2023-09-19 | CT_ITS ---
EXAMINATION: CT abdomen pelvis wo con DATE: 09/19/2023 15:11 INDICATION: Abdomen pain. Nausea and vomiting. TECHNIQUE: Computed tomography (CT) of the abdomen and pelvis was performed without intravenous contr ast. The dose-length product was 1293.89 mGy-cm. Automated exposure control and iterative reconstruct ion technique were employed. COMPARISON: CT dated 01/06/2023 FINDINGS: There is focal eccentric thickening of the rectum with adjacent perirectal fatty infiltrati on and perirectal lymph nodes, largest measuring 11 mm. Calcified granulomas of the spleen. Calcified granulomas of the right middle lobe. Lung bases are oth erwise unremarkable. Heart size normal. The liver, pancreas, adrenal glands and kidneys are unremarka ble. Gallbladder is contracted. There are surgical changes of the ileocecal junction. No significant vascular abnormality. Moderate lower thoracic and lumbar spondylosis. IMPRESSION: 1. Focal eccentric thickening of the rectum with surrounding perirectal fatty infiltration and lymph nodes, suspicious for adenocarcinoma with localized metastases. Recommend follow-up clinical evaluati on. No obstruction. Reviewed, dictated and finalized at location [facility]. [facility] IMPRESSION: 1. Focal eccentric thickening of the rectum with surrounding perirectal fatty i nfiltration and lymph nodes, suspicious for adenocarcinoma with localized metas tases. Recommend follow-up clinical evaluation. No obstruction.
[2023-09-19 13:47] LABS: Basophils Percent Auto 0.6 % (0.2-1.2); Eosinophils Absolute Auto 0.1 K/mm3 (0-0.3); Hematocrit 46.8 % (37.0-47.0); Hemoglobin 15.1 g/dL (12.0-15.0); Immature Granulocyte Absolute 0.02 K/mm3 (0.00-0.031); Immature Granulocyte Percent A 0.3 % (0-0.5); Lymphocytes Absolute Auto 0.64 K/mm3 (0.9-3.2); Lymphocytes Percent Auto 10.3 % (18.3-44.2); Mean Corpuscular HGB Conc 32.3 g/dl (32-36); Mean Corpuscular Hemoglobin 30.9 pg (26-34); Mean Corpuscular Volume 95.9 fl (80-100); Mean Platelet Volume 8.2 fl (7.4-10.4); Monocytes Absolute Auto 0.5 K/mm3 (0.1-0.6); Monocytes Percent Auto 8.7 % (2.6-8.5); Neutrophils Absolute Auto 4.9 K/mm3 (1.3-6.7); Neutrophils Percent Auto 79.1 % (45.5-73.1); Platelet Count Result 319 k/mm3 (150-375); Red Blood Count 4.88 M/mm3 (4.2-5.4); White Blood Count 6.2 K/mm3 (4.5-10.0)
[2023-09-19 13:57] LABS: Alanine Aminotransferase 40 U/L (6-35); Albumin Level 4.1 g/dL (3.5-5.1); Alkaline Phosphatase 148 U/L (38-126); Anion Gap 10 mmol/L (8-16); Aspartate Amino Transferase 41 U/L (14-36); Bilirubin,Total 0.5 mg/dL (0.2-1.3); Blood Urea Nitrogen 7 mg/dL (7-17); Carbon Dioxide 20 mmol/L (22-30); Chloride 104 mmol/L (98-107); Estimated CRCL calculation 69 ml/min; Estimated Glomerular Filt Rate > 60; Glucose 235 mg/dL (65-110); Lipase 54 U/L (23-300); Potassium 3.4 mmol/L (3.4-5.0); Sodium 134 mmol/L (137-145)
--- NOTE | 2023-09-19 14:42 | ED.ABDPAIN ---
HPI - Abdominal Pain General Chief Complaint: Abdominal Pain <MOO Sebastian Last Filed: 09/19/23 21:02> Stated Complaint: abd pain, vomiting <MOO Sebastian Last Filed: 09/19/23 21:02> Time Seen by Provider: 09/19/23 16:27 <MOO Sebastian Last Filed: 09/19/23 21:02> Source: patient <MOO Sebastian Last Filed: 09/19/23 21:02> Mode of arrival: ambulatory <MOO Sebastian Last Filed: 09/19/23 21:02> Limitations: no limitations <MOO Sebastian Last Filed: 09/19/23 21:02> History of Present Illness HPI narrative: Patient is a 63 y/o female, with PMH of Crohn's disease on [facility], bowel obstructions, several previous hernia repairs, who presents to the ED with c/o abdominal pain. Patient reports her pain began on Tuesday. Radiates from her right upper abdomen across and down to her RLQ. Fairly constant, worse with eating/drinking. Patient also reports having nausea, vomiting since Tuesday, and diarrhea vs constipation. Did not have a BM yesterday, typically have 15 BMs per day. Reports two small BMs today which were watery diarrhea. Patient also reports chills, denies known fevers. Denies rectal bleeding, melena, dysuria, hematuria. Patient sees Dr. Turner with GI. Last BM several years ago. <MOO Sebastian Last Filed: 09/19/23 21:02> Related Data Allergies/Adverse Reactions: Allergies Allergy/AdvReac Type Severity Reaction Status Date / Time cyclobenzaprine Allergy Mild HYPERACTIVI Verified 08/12/23 10:07 TY infliximab [From Remicade] Allergy Mild Hives Verified 08/12/23 10:07 latex Allergy Mild Rash Verified 08/12/23 10:07 lisinopril Allergy Mild cough Verified 08/12/23 10:07 contact metal agent Allergy Hives Verified 08/12/23 10:07 hydrocodone AdvReac Mild N/V Verified 08/12/23 10:07 clindamycin AdvReac Unknown other Verified 08/12/23 10:07 hydromorphone [From Dilaudid] AdvReac Vomiting Verified 08/12/23 10:07 palm oil Allergy Intermediate Hives Uncoded 08/12/23 10:07 COCONUT Allergy Mild Hives / Uncoded 08/12/23 10:07 Red Face Delodium AdvReac Mild Vomiting Uncoded 08/12/23 10:07 <Anaid Hernandez PA-C - Last Filed: 09/19/23 21:02> Review of Systems Review of Systems: CONSTITUTIONAL: See HPI. CARDIOVASCULAR: Denies chest pain. RESPIRATORY: Denies dyspnea. GASTROINTESTINAL: See HPI. GENITOURINARY: Denies dysuria or hematuria. MUSCULOSKELETAL: Denies back pain, extremity pain, myalgia. <Anaid Hernandez PA-C - Last Filed: 09/19/23 21:02> All systems reviewed & are unremarkable except as noted in HPI and below <Anaid Hernandez PA-C - Last Filed: 09/19/23 21:02> PMFSH Past Medical History Medical History: Medical History Allergies Arthritis Arthritis in Crohn's disease with complication BMI 39.0-39.9,adult Cellulitis Crohn's disease Degenerative joint disease Diarrhea Elevated glucose Fatigue Grieving Headache Hypertension Hypokalemia Incisional hernia without obstruction or gangrene Inflammatory arthritis Low back pain Nausea and vomiting Obstructive sleep apnea Osteopenia Pain, joint, multiple sites Skin lesion Tobacco abuse Umbilical hernia Yeast infection <Anaid Hernandez PA-C - Last Filed: 09/19/23 21:02> Surgical History Surgical History: Surgical History History of ankle surgery ORIF right ankle fracture. History of bowel resection History of colonoscopy History of fusion of cervical spine History of hernia repair History of right hemicolectomy (2019) History of tubal ligation <Anaid Hernandez PA-C - Last Filed: 09/19/23 21:02> Family History Family History: Family History Father Diabetes mellitus Maligna
[2023-09-19] MEDS: ACETAMINOPHEN 650 MG SUPPOSITORY RECTAL (14:58)
[2023-09-19 15:07] LABS: Lactic Acid Reflex 2.9 mmol/L (0.7-2.0)
--- NOTE | 2023-09-19 16:50 | ED.ABDPAIN ---
HPI - Abdominal Pain General Chief Complaint: Abdominal Pain Stated Complaint: abd pain, vomiting Time Seen by Provider: 09/19/23 16:27 Source: patient Mode of arrival: ambulatory Limitations: no limitations History of Present Illness HPI narrative: patient presents the emergency department history of Crohn's disease. She has had burning pain with any eating for the past 5 days. Pain located along her colon however she states her pain is normally associated with her small intestine. She has had multiple abdominal surgeries and mesh placed due to a large hernia. She is concerned that the mesh may affect her intestine if it gets pushed out again. she has had nausea too and less frequent bowel movements. she Started on Humira and states she has been doing very well Related Data Allergies Allergy/AdvReac Type Severity Reaction Status Date / Time cyclobenzaprine Allergy Mild HYPERACTIVI Verified 08/12/23 10:07 TY infliximab [From Remicade] Allergy Mild Hives Verified 08/12/23 10:07 latex Allergy Mild Rash Verified 08/12/23 10:07 lisinopril Allergy Mild cough Verified 08/12/23 10:07 contact metal agent Allergy Hives Verified 08/12/23 10:07 hydrocodone AdvReac Mild N/V Verified 08/12/23 10:07 clindamycin AdvReac Unknown other Verified 08/12/23 10:07 hydromorphone [From Dilaudid] AdvReac Vomiting Verified 08/12/23 10:07 palm oil Allergy Intermediate Hives Uncoded 08/12/23 10:07 COCONUT Allergy Mild Hives / Uncoded 08/12/23 10:07 Red Face Delodium AdvReac Mild Vomiting Uncoded 08/12/23 10:07 Review of Systems Review of Systems: negative except for what is documented in the HPI [facility] Past Medical History Medical History Allergies Arthritis Arthritis in Crohn's disease with complication BMI 39.0-39.9,adult Cellulitis Crohn's disease Degenerative joint disease Diarrhea Elevated glucose Fatigue Grieving Headache Hypertension Hypokalemia Incisional hernia without obstruction or gangrene Inflammatory arthritis Low back pain Nausea and vomiting Obstructive sleep apnea Osteopenia Pain, joint, multiple sites Skin lesion Tobacco abuse Umbilical hernia Yeast infection Surgical History Surgical History History of ankle surgery ORIF right ankle fracture. History of bowel resection History of colonoscopy History of fusion of cervical spine History of hernia repair History of right hemicolectomy (2019) History of tubal ligation Family History Family History Father Diabetes mellitus Malignant neoplasm of prostate Hypertension Family history of diabetes mellitus in first degree relative Family history of malignant neoplasm of urinary bladder Family history of heart disease in male family member before age 55 Mother Diabetes mellitus Family history of kidney disease Patient's mother is Other Family history of cardiovascular disease Social History Social History Social History: Surrogate medical decision maker: Reynold Colbert, spouse. Code status: Full code. Years smoked: 30 Smoking status: Current every day smoker Second hand tobacco smoke exposure: No Alcohol intake: never Substance use: never Substance use type: does not use Lack of Transportation: No Lack of Food: Never True Current Housing: I Have Housing Concerned About Future Housing: No Difficulty Paying Gas/Electric Bills: YES Difficulty Paying for Meds: No Currently Unemployed: No Education: Trade/Vocational Certificate Difficulty w/ Childcare or Family Care: No Living arrangements: with family Occupation/Education: retired Spiritual care concerns: No Agree to blood products: Yes Exam Narrative: GENERAL: Well-appearing,
[2023-09-19 16:54] LABS: Appearance Urine Clear (Clear); Bacteria Urine None Seen /hpf; Bilirubin Urine Negative (Negative); Blood Urine Negative (Negative); Color Urine Dark Yellow (Yellow); Glucose Urine UA 1+ mg/dL (Negative); Ketones Urine Trace mg/dL (Negative); Leukocyte Esterase Ur Negative LEU/UL (Negative); Nitrate Urine Negative (Negative); Non Pathogenic Casts 0-2; Protein Urine Trace mg/dL (Negative); RBC Urine 0-2 /hpf (0-2); Specific Grav Ur 1.029 (1.001-1.035); Squamous Epithelial Cell Urine Occasional /hpf (Few); WBC Urine 0-5 /hpf; pH Urine 5.5 (5.0-9.0)
[2023-09-19 17:04] LABS: Add Urine Microscopic? YES
[2023-09-19] MEDS: ONDANSETRON INJ 4 MG/2 ML VIAL IV PUSH (17:05)
[2023-09-19] MEDS: SODIUM CHLORIDE 0.9% IV 1,000 ML 999 ML IV CONT (17:06)
[2023-09-19] MEDS: MORPHINE SULFATE (*CRX) 2 MG/ML INJ 4 MG IV PUSH (17:06)
[2023-09-19 17:56] LABS: Reflex Lactic Acid Yes or No Add Lactic
[2023-09-19 18:35] LABS: Lactic Acid 1.2 mmol/L (0.7-2.0)
--- NOTE | 2023-09-19 19:30 | PM.IMHP ---
H&P: HPI History of Present Illness Date/Time: 09/19/23 19:30 Chief Complaint: Abdominal pain Narrative: This is a 63-year-old female with past medical history significant for Crohn's disease, degenerative joint disease, Crohn's related arthritis, obesity, structured sleep apnea, osteopenia, tobacco dependence. Patient presents to the emergency room due to abdominal pain and constipation nausea vomiting, poor per orally intake poor appetite, denies fevers rigors chills denies hematemesis coffee-ground emesis melena or bright red blood per rectum, denies weight loss. CT of abdomen and pelvis concerning for colon mass. Patient has been admitted for further evaluation management and treatment. EXAMINATION: CT abdomen pelvis wo con DATE: 09/19/2023 15:11 INDICATION: Abdomen pain. Nausea and vomiting. TECHNIQUE: Computed tomography (CT) of the abdomen and pelvis was performed without intravenous contrast. The dose-length product was 1293.89 mGy-cm. Automated exposure control and iterative reconstruction technique were employed. COMPARISON: CT dated 01/06/2023 FINDINGS: There is focal eccentric thickening of the rectum with adjacent perirectal fatty infiltration and perirectal lymph nodes, largest measuring 11 mm. Calcified granulomas of the spleen. Calcified granulomas of the right middle lobe. Lung bases are otherwise unremarkable. Heart size normal. The liver, pancreas, adrenal glands and kidneys are unremarkable. Gallbladder is contracted. There are surgical changes of the ileocecal junction. No significant vascular abnormality. Moderate lower thoracic and lumbar spondylosis. IMPRESSION: 1. Focal eccentric thickening of the rectum with surrounding perirectal fatty infiltration and lymph nodes, suspicious for adenocarcinoma with localized metastases. Recommend follow-up clinical evaluation. No obstruction. Review of Systems Review of Systems: Abdominal pain, nausea, vomiting, poor appetite, poor per orally intake Constitutional: Constitutional: Denies chills, Denies fatigue, Denies fever(s), Denies malaise, Denies weakness and Denies weight loss Eyes: Eyes: Denies change in vision ENT: Denies dysphagia and Denies odynophagia Cardiovascular: Cardiovascular: Denies chest pain, Denies radiating jaw, neck or arm pain and Denies palpitations Respiratory: Respiratory: Denies cough and Denies dyspnea Gastrointestinal: Gastrointestinal: Reports abdominal pain, Denies melena, Denies hematochezia, Denies coffee ground emesis, Reports constipation, Denies dyspepsia, Denies heartburn, Reports nausea, Reports vomiting and Denies hematemesis Genitourinary: Genitourinary: Denies dysuria Musculoskeletal: Musculoskeletal: Denies arthralgias Integumentary/Breasts: Skin/Breast: Denies rash Neurologic: Denies focal weakness and Denies Sensory deficit (Neuro) Psychiatric: Psychiatric: Reports no additional psychiatric complaints and Reports as per HPI Endocrine: Endocrine: Denies cold intolerance, Denies fatigue, Denies flushing, Denies heat intolerance, Denies polyphagia, Denies polydipsia and Denies palpitations Hematologic/Lymphatic: Hematologic/Lymphatic: Reports no additional hematologic/lymphatic complaints and Reports as per HPI Allergic/Immunologic: Allergic/Immunologic: Reports no additional allergic/immunologic complaints and Reports as per HPI PMFSH Past Medical History Medical History Allergies Arthritis Arthritis in Crohn's disease with complication BMI 39.0-39.9,adult Cellulitis Crohn's disease Degenerative joint disease Diarrhea Elevated glucose Fatigue Grieving Headache Hypertension Hypokalemia Incisional hernia without obstruction or gangrene Inflammatory arthritis Low back pain Nausea and vomiting Obstructive sleep apnea Osteopenia Pain, joint, multiple sites Skin lesion Tobacco abuse Umbilical hernia Yeast infection Surgical History
[2023-09-19] MEDS: MORPHINE SULFATE (*CRX) 4 MG/ML INJ IV PUSH (19:44)
[2023-09-19] MEDS: PIPERACILLIN/TAZ 4.5G/NS 100ML 4.5 GM/100 ML BAG IVPB (20:24)
[2023-09-20] VITALS (52 sets, daily range): BP systolic 108–139; BP diastolic 48–83; PULSE 96–114; RESP 8–22; TEMP 36.7–36.8; O2SAT 90–100; BMI 39.9
--- NOTE | 2023-09-20 08:21 | PC.NURSE ---
daily medications not delivered from pharmacy at this time
[2023-09-20] MEDS: buPROPion HCL XL (24 HR) 150 MG TABCR PO (09:03)
[2023-09-20] MEDS: DULoxetine HCL 60 MG CAPSULE.DR PO ×2 (09:03→17:41)
[2023-09-20] MEDS: LACTATED RINGERS 1,000 ML 75 ML IV CONT ×2 (09:07→22:00)
--- NOTE | 2023-09-20 09:35 | ADMGEN ---
This patient, Saira Colbert, was admitted to [facility] Surg Room 314-01. Patient/family oriented to hospital policies and general routines including ID bracelet, bed and alarms, visiting hours, pain management, procedures, bathroom and other care routines, personal items, smoking policy, room service/diet, and visiting hours. Information on how to activate the Rapid Response Team has been discussed. Patient/Family are encouraged to report perceived risks to care and to ask questions if they do not understand what they are told or what they should do.
[2023-09-20] MEDS: PIPERACILLN/TAZ 3.375GM/NS50ML 3.375 GM/50 ML BAG IVPB ×2 (10:48→17:42)
--- NOTE | 2023-09-20 12:45 | PM.IMPN ---
Progress Note: A&P Assessment and Plan (1) Adenocarcinoma: Code(s): C80.1 - Malignant (primary) neoplasm, unspecified Status: Acute Assessment and Plan: CT abdomen and pelvis concerning for adenocarcinoma of the colon GI consult, colonoscopy planned 09/21 (2) Crohn's colitis: Qualifiers: Digestive disease complication type: without complication Qualified Code(s): K50.10 - Crohn's disease of large intestine without complications Code(s): K50.10 - Crohn's disease of large intestine without complications Status: Acute Assessment and Plan: Patient does not appear to have exacerbation (3) Sepsis: Qualifiers: Sepsis acute organ dysfunction status: without acute organ dysfunction Sepsis type: sepsis due to unspecified organism Qualified Code(s): A41.9 - Sepsis, unspecified organism Code(s): A41.9 - Sepsis, unspecified organism Status: Acute Assessment and Plan: Lactic acid elevated at 2.9 However no clear source Supportive care Cultures in progress Continue to monitor Continue IV Zosyn (4) Fever: Qualifiers: Fever type: unspecified Qualified Code(s): R50.9 - Fever, unspecified Code(s): R50.9 - Fever, unspecified Status: Acute Assessment and Plan: Continue to monitor temperature curve Supportive care (5) Obstructive sleep apnea: Code(s): G47.33 - Obstructive sleep apnea (adult) (pediatric) Status: Acute Assessment and Plan: CPAP at nighttime (6) Degenerative joint disease of cervical and lumbar spine: Code(s): M47.812 - Spondylosis without myelopathy or radiculopathy, cervical region; M47.816 - Spondylosis without myelopathy or radiculopathy, lumbar region Status: Acute Assessment and Plan: Tylenol p.r.n. (7) Tobacco abuse: Code(s): Z72.0 - Tobacco use Status: Acute Assessment and Plan: Nicotine patch as needed Time Spent With Patient Time with patient: 25 - 35 minutes Subjective Date/time seen: 09/20/23 12:45 Interval history: 09/19 H&P: This is a 63-year-old female with past medical history significant for Crohn's disease, degenerative joint disease, Crohn's related arthritis, obesity, structured sleep apnea, osteopenia, tobacco dependence.? Patient presents to the emergency room due to abdominal pain and constipation nausea vomiting, poor per orally intake poor appetite, denies fevers rigors chills denies hematemesis coffee-ground emesis melena or bright red blood per rectum, denies weight loss.? CT of abdomen and pelvis concerning for colon mass.? Patient has been admitted for further evaluation management and treatment. EXAMINATION: CT abdomen pelvis wo con DATE: 09/19/2023 15:11 IMPRESSION: 1. Focal eccentric thickening of the rectum with surrounding perirectal fatty infiltration and lymph nodes, suspicious for adenocarcinoma with localized metastases. Recommend follow-up clinical evaluation. No obstruction. 09/20: Patient with abdominal pain and cramping history Crohn's seen by GI with planned scope tomorrow. Clear liquid diet NPO after midnight except for bowel prep. Review of Systems Review of Systems: Abdominal pain, nausea, vomiting, poor appetite, poor per orally intake All systems reviewed & are unremarkable except as noted in HPI and below Exam Narrative: GENERAL: Well-appearing, well-nourished, and in no acute distress. HEAD: Normocephalic, atraumatic. EYES: PERRLA and EOMI. ENT: Nares clear, no rhinorrhea or epistaxis. Mucous membranes moist. NECK: Supple. No JVD CHEST: Clear to auscultation. No respiratory distress. HEART: Regular rate and rhythm. ABDOMEN: Soft, nondistended, generalized abdominal tenderness without guarding or rebound EXTREMITIES: Normal range of motion. No edema. SKIN: Warm, dry, no rash. NEURO: No focal deficits. Alert and oriented x3. PSYCH: Normal mood and affect. Objective Jeet
--- NOTE | 2023-09-20 15:10 | WPDGICN ---
Assessment and Plan Assessment and plan (1) Crohn's disease: Code(s): K50.90 - Crohn's disease, unspecified, without complications Status: Acute Assessment and Plan: Patient with a history of Crohn's disease. She has a history of terminal ileal resection. Currently maintained on Humira. She apparently also has arthritis on the basis of her Crohn's disease. At present will continue the Humira. Colonoscopy will be performed to assess the status of this primarily because of abnormal CT scan found on admission and complaints of constipation. (2) Abnormal CT scan: Code(s): R93.89 - Abnormal findings on diagnostic imaging of other specified body structures Status: Acute Assessment and Plan: CT scan performed because of constipation abdominal pain suggest possible rectal mass with metastases. Plan for colonoscopy to assess more thoroughly. Her inflammatory bowel disease will be assessed at the same time. Hopefully preparation can be obtained successfully. GI Consult Note Consult date/time: 09/20/23 15:10 Reason for consult: Abnormal CT scan. HPI: Saira Colbert is a 63 year old female Who has a history of Crohn's disease. History of ileal resection in the past. Currently maintained on Humira. Over the last week or 2 has had increasing constipation along with abdominal pain. For this reason she presented the emergency room. A CT scan suggests she may have a rectal mass and concern over metastatic disease as well. Patient denies any bleeding. She has no weight loss. She has had several bowel movements this week but continues to have rather significant abdominal pain. Review of Systems Review of Systems: Review of systems noncontributory. [facility] Past Medical History Medical History Allergies Arthritis Arthritis in Crohn's disease with complication BMI 39.0-39.9,adult Cellulitis Crohn's disease Degenerative joint disease Diarrhea Elevated glucose Fatigue Grieving Headache Hypertension Hypokalemia Incisional hernia without obstruction or gangrene Inflammatory arthritis Low back pain Nausea and vomiting Obstructive sleep apnea Osteopenia Pain, joint, multiple sites Skin lesion Tobacco abuse Umbilical hernia Yeast infection Surgical History Surgical History History of ankle surgery ORIF right ankle fracture. History of bowel resection History of colonoscopy History of fusion of cervical spine History of hernia repair History of right hemicolectomy (2019) History of tubal ligation Family History Family History Father Diabetes mellitus Malignant neoplasm of prostate Hypertension Family history of diabetes mellitus in first degree relative Family history of malignant neoplasm of urinary bladder Family history of heart disease in male family member before age 55 Mother Diabetes mellitus Family history of kidney disease Patient's mother is Other Family history of cardiovascular disease Social History Social History Social History: Surrogate medical decision maker: Reynold Colbert, spouse. Code status: Full code. Years smoked: 30 Smoking status: Current every day smoker Second hand tobacco smoke exposure: No Alcohol intake: current Drinks per week: 1 Substance use: never Substance use type: does not use Do You Feel Safe in your Home?: Yes Lack of Transportation: No Lack of Food: Never True Current Housing: I Have Housing Concerned About Future Housing: No Difficulty Paying Gas/Electric Bills: YES Difficulty Paying for Meds: No Currently Unemployed: No Education: Trade/Vocational Certificate Difficulty w/ Childcare or Family Care: No Living arrangements: w
[2023-09-20] MEDS: polyethylene glycoL 3350 238 GM BOTTLE PO (17:40)
[2023-09-20] MEDS: ACETAMINOPHEN 325 MG TABLET 650 MG PO (22:00)
[2023-09-20] MEDS: MORPHINE SULFATE (*CRX) 2 MG/ML INJ IV PUSH (22:55)
[2023-09-21] MEDS: PIPERACILLN/TAZ 3.375GM/NS50ML 3.375 GM/50 ML BAG IVPB ×3 (01:57→12:32)
[2023-09-21 06:00] VITALS: BP 115/60; PULSE 88; RESP 18; TEMP 36.8; O2SAT 97
[2023-09-21 06:22] LABS: Basophils Percent Auto 0.6 % (0.2-1.2); Eosinophils Absolute Auto 0.1 K/mm3 (0-0.3); Eosinophils Percent Auto 2.4 % (0-4.4); Hematocrit 38.1 % (37.0-47.0); Hemoglobin 12.4 g/dL (12.0-15.0); Immature Granulocyte Absolute 0.02 K/mm3 (0.00-0.031); Immature Granulocyte Percent A 0.4 % (0-0.5); Lymphocytes Percent Auto 27.7 % (18.3-44.2); Mean Corpuscular HGB Conc 32.5 g/dl (32-36); Mean Corpuscular Hemoglobin 30.9 pg (26-34); Mean Platelet Volume 8.3 fl (7.4-10.4); Monocytes Absolute Auto 0.6 K/mm3 (0.1-0.6); Monocytes Percent Auto 11.7 % (2.6-8.5); Neutrophils Absolute Auto 2.9 K/mm3 (1.3-6.7); Neutrophils Percent Auto 57.2 % (45.5-73.1); Platelet Count Result 268 k/mm3 (150-375); Red Blood Count 4.01 M/mm3 (4.2-5.4); Red Cell Distribution Width 12.8 % (11.5-14.5); White Blood Count 5.1 K/mm3 (4.5-10.0)
[2023-09-21 06:31] LABS: Albumin Level 3.2 g/dL (3.5-5.1); Anion Gap 7 mmol/L (8-16); Blood Urea Nitrogen 7 mg/dL (7-17); Calcium 8.4 mg/dL (8.4-10.2); Carbon Dioxide 24 mmol/L (22-30); Chloride 105 mmol/L (98-107); Estimated CRCL calculation 79 ml/min; Estimated Glomerular Filt Rate > 60; Glucose 104 mg/dL (65-110); Phosphorus 3.8 mg/dL (2.5-4.5); Potassium 3.5 mmol/L (3.4-5.0); Sodium 136 mmol/L (137-145)
[2023-09-21] MEDS: MAGNESIUM CITRATE 300 ML BTL 180 ML PO (07:15)
[2023-09-21] MEDS: DULoxetine HCL 60 MG CAPSULE.DR PO (08:42)
[2023-09-21] MEDS: buPROPion HCL XL (24 HR) 150 MG TABCR PO (08:42)
--- NOTE | 2023-09-21 09:48 | PM.IMPN ---
Subjective Date/time seen: 09/21/23 09:48 Objective Data Vital Signs Vital Signs: Vital Signs - 24 hr 09/20/23 12:10 09/20/23 11:00 09/20/23 14:00 Temperature 36.7 C 36.8 C Pulse Rate 102 H 98 Respiratory Rate 18 18 Blood Pressure 129/78 139/79 Pulse Oximetry 95 99 99 Oxygen Delivery Room Air Fraction of Inspired Oxygen 21 09/20/23 21:58 09/20/23 20:00 09/21/23 06:00 Temperature 36.8 C 36.8 C Pulse Rate 104 H 88 Respiratory Rate 18 18 Blood Pressure 125/83 115/60 Pulse Oximetry 100 97 Oxygen Delivery Room Air Fraction of Inspired Oxygen Intake/Output Intake/Output: Intake & Output 09/18/23 09/19/23 09/20/23 09/21/23 23:59 23:59 23:59 23:59 Intake Total 1100 1340 50 Balance 1100 1340 50 Meds/Results Medications: Active Medications Generic Name Dose Route Start Last Admin Trade Name Freq PRN Reason Stop Dose Admin Acetaminophen 650 mg 09/20/23 16:13 09/20/23 22:00 Acetaminophen 325 Mg Tablet PO 650 mg Q4H PRN Administration Pain or Fever Bupropion HCl 150 mg 09/20/23 09:00 09/21/23 08:42 Bupropion Hcl Xl (24 Hr) 150 Mg Tabcr PO 150 mg QAM KARAN Administration Duloxetine HCl 60 mg 09/20/23 09:00 09/21/23 08:42 Duloxetine Hcl 60 Mg Capsule.Dr PO 60 mg BID KARAN Administration Lactated Ringer's 1,000 mls @ 75 mls/hr 09/20/23 07:40 09/20/23 22:00 Lr - Lactated Ringers Iv IV CONT 75 mls/hr .[id number] KARAN Administration Piperacillin/Tazobactam/Dextrose 3.375 gm in 50 mls @ 100 mls/hr 09/20/23 11:00 09/21/23 07:14 Zosyn 3.375 Gm/Ns 50 Ml IVPB 100 mls/hr Q6HR KARAN Administration Lactated Ringer's 1,000 mls @ 150 mls/hr 09/21/23 08:15 Lr - Lactated Ringers Iv IV CONT .[id number] KARAN Morphine Sulfate 2 mg 09/20/23 22:37 09/20/23 22:55 Morphine Sulfate (*Crx) 2 Mg/Ml Inj IV PUSH 2 mg Q4H PRN Administration Pain Rated 7-10 Nicotine 1 patch 09/20/23 16:15 09/20/23 17:41 Nicotine (*Pbkc) 21 Mg Patch TRANSDERM Not Given DAILY KARAN Radiology Results: ITS Impressions Abdomen/Pelvis CT 09/19/23 15:14 IMPRESSION: 1. Focal eccentric thickening of the rectum with surrounding perirectal fatty infiltration and lymph nodes, suspicious for adenocarcinoma with localized metastases. Recommend follow-up clinical evaluation. No obstruction. Labs Labs: Laboratory Results - last 24 hr 09/21/23 05:36 WBC 5.1 RBC 4.01 L Hgb 12.4 Hct 38.1 MCV 95.0 MCH 30.9 MCHC 32.5 RDW 12.8 Plt Count 268 MPV 8.3 Immature Gran % (Auto) 0.4 Neut % (Auto) 57.2 Lymph % (Auto) 27.7 Terry % (Auto) 11.7 H Eos % (Auto) 2.4 Baso % (Auto) 0.6 Lymph # (Auto) 1.40 Terry # (Auto) 0.6 Eos # (Auto) 0.1 Baso # (Auto) 0.0 Abs Immat Gran (auto) 0.02 Absolute Neuts (auto) 2.9 Absolute Nucleated RBC 0.0 Nucleated RBC % 0.0 Sodium 136 L Potassium 3.5 Chloride 105 Carbon Dioxide 24 Anion Gap 7 L BUN 7 Creatinine 0.70 Estim Creat Clear Calc 79 Estimated GFR > 60 Glucose 104 Calcium 8.4 Phosphorus 3.8 Magnesium 2.0 Albumin 3.2 L
[2023-09-21] MEDS: LACTATED RINGERS 1,000 ML 150 ML IV CONT (10:06)
[2023-09-21 10:10] VITALS: BP 132/72; PULSE 90; RESP 18; TEMP 36.2; O2SAT 99
--- NOTE | 2023-09-21 10:36 | WPDANESEPPF ---
Anes - Initial Pre Proc Eval Procedure: Operation Date: 09/21/23 11:30 Proposed Procedures p Colonoscopy - Donavan Fajardo MD Date/Time: 09/21/23 10:36 Surgeon: Jay Walker MD Pre Op Diagnosis: ABD Pain Rule Out Adenocarcinoma Patient Data Age: 63 Gender: F Height: 1.57 m Weight: 99 kg Last Vital Signs Temp 36.2 C L 09/21/23 10:10 Pulse 90 09/21/23 10:10 Resp 18 09/21/23 10:10 BP 132/72 09/21/23 10:10 Pulse Ox 99 09/21/23 10:10 O2 Del Method Room Air 09/21/23 10:10 FiO2 21 09/20/23 12:10 Allergies Allergy/AdvReac Type Severity Reaction Status Date / Time cyclobenzaprine Allergy Mild HYPERACTIVI Verified 09/20/23 10:26 TY infliximab [From Remicade] Allergy Mild Hives Verified 09/20/23 10:26 latex Allergy Mild Rash Verified 09/20/23 10:26 lisinopril Allergy Mild cough Verified 09/20/23 10:26 contact metal agent Allergy Hives Verified 09/20/23 10:26 hydrocodone AdvReac Mild N/V Verified 09/20/23 10:26 clindamycin AdvReac Unknown other Verified 09/20/23 10:26 hydromorphone [From Dilaudid] AdvReac Vomiting Verified 09/20/23 10:26 palm oil Allergy Intermediate Hives Uncoded 09/20/23 10:26 COCONUT Allergy Mild Hives / Uncoded 09/20/23 10:26 Red Face Delodium AdvReac Mild Vomiting Uncoded 09/20/23 10:26 Home Medications Medication Instructions Recorded Confirmed Type duloxetine 60 mg capsule,delayed 60 mg PO BID #60 caps 11/26/22 09/19/23 Rx release adalimumab 40 mg/0.4 mL See Rx Instructions subcut 12/24/22 09/19/23 Rx subcutaneous pen kit (Humira(CF) .COMPLEX #2 ea Pen) bupropion HCl 150 mg 24 hr tablet, 150 mg PO QAM #30 tabs 06/09/23 09/19/23 Rx extended release (Wellbutrin XL) Laboratory Tests 09/21/23 05:36 WBC 5.1 K/mm3 (4.5-10.0) RBC 4.01 L M/mm3 (4.2-5.4) Hgb 12.4 g/dL (12.0-15.0) Hct 38.1 % (37.0-47.0) MCV 95.0 fl (80-100) MCH 30.9 pg (26-34) MCHC 32.5 g/dl (32-36) RDW 12.8 % (11.5-14.5) Plt Count 268 k/mm3 (150-375) MPV 8.3 fl (7.4-10.4) Immature Gran % (Auto) 0.4 % (0-0.5) Neut % (Auto) 57.2 % (45.5-73.1) Lymph % (Auto) 27.7 % (18.3-44.2) Bledsoe % (Auto) 11.7 H % (2.6-8.5) Eos % (Auto) 2.4 % (0-4.4) Baso % (Auto) 0.6 % (0.2-1.2) Lymph # (Auto) 1.40 K/mm3 (0.9-3.2) Bledsoe # (Auto) 0.6 K/mm3 (0.1-0.6) Eos # (Auto) 0.1 K/mm3 (0-0.3) Baso # (Auto) 0.0 K/mm3 (0.0-0.1) Abs Immat Gran (auto) 0.02 K/mm3 (0.00-0.031) Absolute Neuts (auto) 2.9 K/mm3 (1.3-6.7) Absolute Nucleated RBC 0.0 K/mm3 (0.0-0.012) Nucleated RBC % 0.0 % (0.0-0.2) Sodium 136 L mmol/L (137-145) Potassium 3.5 mmol/L (3.4-5.0) Chloride 105 mmol/L (98-107) Carbon Dioxide 24 mmol/L (22-30) Anion Gap 7 L mmol/L (8-16) BUN 7 mg/dL (7-17) Creatinine 0.70 mg/dL (0.7-1.0) Estim Creat Clear Calc 79 ml/min Estimated GFR > 60 (59 - ) Glucose 104 mg/dL (65-110) Calcium 8.4 mg/dL (8.4-10.2) Phosphorus 3.8 mg/dL (2.5-4.5) Magnesium 2.0 mg/dL (1.6-2.3) Albumin 3.2 L g/dL (3.5-5.1) Patient hx anesthesia problems: none Family hx anesthesia problems: none Results Review: All pre-operative results and documents have been reviewed as part of the pre-operative evaluation. [facility] Past Medical History Medical History Allergies Arthritis Arthritis in Crohn's disease with complication BMI 39.0-39.9,adult Cellulitis Crohn's disease Degenerative joint disease Diarrhea Elevated glucose Fatigue Grieving Headache Hypertension Hypokalemia Incisional hernia without obstruction or gangrene Inflammatory arthritis Low back pain Nausea and vomiting Obstructive sleep apnea Osteopenia Pain, joint, multiple sites Skin lesion Tobacco abuse Umbilical hernia Yeast infection Surgical History Surgical H
[2023-09-21 11:47] VITALS: BP 102/59; PULSE 86; RESP 16; TEMP 36.2; O2SAT 95
[2023-09-21 11:57] VITALS: BP 96/58; PULSE 84; RESP 16; O2SAT 95
[2023-09-21 12:07] VITALS: BP 112/72; PULSE 86; RESP 19; O2SAT 97
[2023-09-21 14:00] VITALS: BP 130/60; PULSE 95; RESP 16; TEMP 36.3; O2SAT 98
--- NOTE | 2023-09-21 15:06 | PM.DS ---
DS: Admitting Diagnosis Discharge Date 09/21/2023 Admitting Diagnosis Crohn's colitis, adenocarcinoma, sepsis, fever, GREGORIA, degenerative joint disease of cervical and lumbar spine, tobacco abuse DS: Discharge Diagnosis Discharge Diagnosis (1) Adenocarcinoma: Code(s): C80.1 - Malignant (primary) neoplasm, unspecified Status: Acute (2) Crohn's colitis: Qualifiers: Digestive disease complication type: without complication Qualified Code(s): K50.10 - Crohn's disease of large intestine without complications Code(s): K50.10 - Crohn's disease of large intestine without complications Status: Acute (3) Sepsis: Qualifiers: Sepsis acute organ dysfunction status: without acute organ dysfunction Sepsis type: sepsis due to unspecified organism Qualified Code(s): A41.9 - Sepsis, unspecified organism Code(s): A41.9 - Sepsis, unspecified organism Status: Acute (4) Fever: Qualifiers: Fever type: unspecified Qualified Code(s): R50.9 - Fever, unspecified Code(s): R50.9 - Fever, unspecified Status: Acute (5) Obstructive sleep apnea: Code(s): G47.33 - Obstructive sleep apnea (adult) (pediatric) Status: Acute (6) Degenerative joint disease of cervical and lumbar spine: Code(s): M47.812 - Spondylosis without myelopathy or radiculopathy, cervical region; M47.816 - Spondylosis without myelopathy or radiculopathy, lumbar region Status: Acute (7) Tobacco abuse: Code(s): Z72.0 - Tobacco use Status: Acute DS: Summary Hospital Course Hospital Course: 09/19 H&P:??This is a 63-year-old female with past medical history significant for Crohn's disease, degenerative joint disease, Crohn's related arthritis, obesity, structured sleep apnea, osteopenia, tobacco dependence.? Patient presents to the emergency room due to abdominal pain and constipation nausea vomiting, poor per orally intake poor appetite, denies fevers rigors chills denies hematemesis coffee-ground emesis melena or bright red blood per rectum, denies weight loss.? CT of abdomen and pelvis concerning for colon mass.? Patient has been admitted for further evaluation management and treatment. EXAMINATION: CT abdomen pelvis wo con DATE: 09/19/2023 15:11 IMPRESSION: 1. Focal eccentric thickening of the rectum with surrounding perirectal fatty infiltration and lymph nodes, suspicious for adenocarcinoma with localized metastases. Recommend follow-up clinical evaluation. No obstruction. 09/20:? Patient with abdominal pain and cramping history Crohn's seen by GI with planned scope tomorrow.? Clear liquid diet NPO after midnight except for bowel prep. 09/21: This morning patient stated that her abdominal pain was much better that she tolerated the bowel prep okay and had no further needs. GI completed scope and suspects rectal extension of Crohn's. CT imaging concerning for adenocarcinoma. Biopsy was taken for pathology. Gastroenterology told patient she food she can be discharged home today. Patient was eagerly dressed and ready to this afternoon after tolerating food. Status at Discharge Cognitive/behavioral status at discharge: Awake alert oriented with labile mood Functional status at discharge: independent ambulation Overall status at discharge: patient is progressing back to baseline Time Spent with Patient Time attestation: Total time spent providing and/or coordinating discharge services: 45 minutes Time spent: Greater than 30 minutes Exam Narrative: GENERAL: Well-appearing, well-nourished, and in no acute distress. HEAD: Normocephalic, atraumatic. EYES: PERRLA and EOMI. ENT: Nares clear, no rhinorrhea or epistaxis. Mucous membranes moist. NECK: Supple. No JVD CHEST: Clear to auscultation. No respiratory distress. HEART: Regular rate and rhythm. ABDOMEN: Soft, nondistended, generalized abdominal tenderness without guarding or rebound EXTREMITIES: Normal r
--- NOTE | 2023-09-22 07:25 | WPDANESPN ---
Anes - Prog Note Post-Op Date/Time: 09/22/23 07:25 Cardiovascular status: normal Respiratory status: normal Airway patency: baseline Mental status: baseline Post-Op hydration status: normal Vital Signs: Last Vital Signs Temp 97.3 F L 09/21/23 14:00 Pulse 95 09/21/23 14:00 Resp 16 09/21/23 14:00 BP 130/60 09/21/23 14:00 Pulse Ox 98 09/21/23 14:00 O2 Del Method Room Air 09/21/23 12:07 FiO2 21 09/20/23 12:10 Pain Score (VAS): 0 sleeping I/O: Intake & Output 09/21/23 09/21/23 09/22/23 15:59 23:59 07:59 Intake Total 640 Balance 640 Laboratory Tests 09/21/23 05:36 09/21/23 05:36 Post-procedural complaints: none Patient Feedback: Patient satisfied with anesthetic care.
== END 2023-09-21 16:00 | disposition home or self-care (01) ==
LOC: ANHED 19:25 → ANH3MEDSUR 20:30
PROVIDERS: Emergency Medicine; Internal Medicine Gastroenterology; Nurse Practitioner; Physician Assistant; Admitting Provider Internal Medicine; Emergency Provider Emergency Medicine; PCP Nurse Practitioner Family; Visit Provider Internal Medicine
PROC: 0DJD8ZZ Inspection of Lower Intestinal Tract, Via Natural or Artificial Opening Endoscopic (ICD-10-PCS; CPT 45378; principal; 2023-09-21 11:30)
DX: K63.89 Other specified diseases of intestine (principal); K50.00 Crohn's disease of small intestine without complications; K64.4 Residual hemorrhoidal skin tags; C80.1 Malignant (primary) neoplasm, unspecified; A41.9 Sepsis, unspecified organism; R93.3 Abnormal findings on diagnostic imaging of other parts of digestive tract; R74.01 Elevation of levels of liver transaminase levels; R50.9 Fever, unspecified; G47.33 Obstructive sleep apnea (adult) (pediatric); Z99.89 Dependence on other enabling machines and devices; M47.812 Spondylosis without myelopathy or radiculopathy, cervical region; M47.816 Spondylosis without myelopathy or radiculopathy, lumbar region; E87.1 Hypo-osmolality and hyponatremia; R73.9 Hyperglycemia, unspecified; I10 Essential (primary) hypertension; F17.210 Nicotine dependence, cigarettes, uncomplicated; R63.0 Anorexia; Z68.39 Body mass index [BMI] 39.0-39.9, adult; Z79.899 Other long term (current) drug therapy; Z82.49 Family history of ischemic heart disease and other diseases of the circulatory system
CPT/HCPCS: 45380; 36415; 74176; 80053; 80069; 81001; 83605; 83690; 83735; 85025; 87040; 88305; 96361; 96365; 96366; 96375; 99285; A9270; G0378; G0379; J2270; J2405; J2543; J2704; J7030; J7120

== ENCOUNTER 2023-11-09 09:07 | Outpatient (CLI) | payer OTHER, SELFPAY ==
[2023-11-09 09:44] LABS: Hematocrit 42.8 % (37.0-47.0); Hemoglobin 14.1 g/dL (12.0-15.0); Mean Corpuscular HGB Conc 32.9 g/dl (32-36); Mean Corpuscular Hemoglobin 30.1 pg (26-34); Mean Corpuscular Volume 91.3 fl (80-100); Mean Platelet Volume 8.2 fl (7.4-10.4); Platelet Count Result 370 k/mm3 (150-375); Red Blood Count 4.69 M/mm3 (4.2-5.4); Red Cell Distribution Width 12.8 % (11.5-14.5); White Blood Count 8.1 K/mm3 (4.5-10.0)
[2023-11-09 09:57] LABS: Alanine Aminotransferase 17 U/L (6-35); Albumin Level 3.5 g/dL (3.5-5.1); Alkaline Phosphatase 158 U/L (38-126); Anion Gap 8 mmol/L (8-16); Aspartate Amino Transferase 22 U/L (14-36); Bilirubin,Total 0.6 mg/dL (0.2-1.3); Blood Urea Nitrogen 10 mg/dL (7-17); Calcium 9.1 mg/dL (8.4-10.2); Carbon Dioxide 24 mmol/L (22-30); Chloride 106 mmol/L (98-107); Estimated Glomerular Filt Rate > 60; Glucose 115 mg/dL (65-110); Potassium 3.9 mmol/L (3.4-5.0); Sodium 138 mmol/L (137-145)
[2023-11-09 10:41] LABS: Erythrocyte Sedimentation Rate 31 mm/hr (0-20)
[2023-11-09 11:04] LABS: Toxigenic C. Diff POSITIVE (NEGATIVE)
[2023-11-12 13:43] LABS: NIL 0.05 IU/mL; Quantiferon TB Plus, 1T NEGATIVE (NEGATIVE)
[2023-11-16 20:53] LABS: Calprotectin, Stool 768 mcg/g
== END 2023-11-09 09:08 | disposition home or self-care (01) ==
LOC: ANHLAB 09:09
PROVIDERS: PCP Nurse Practitioner Family; Visit Provider Internal Medicine Gastroenterology
DX: K50.00 Crohn's disease of small intestine without complications (principal); K50.10 Crohn's disease of large intestine without complications; M07.60 Enteropathic arthropathies, unspecified site; K52.9 Noninfective gastroenteritis and colitis, unspecified
CPT/HCPCS: 36415; 80053; 83993; 85027; 85652; 86140; 86480; 87493

== ENCOUNTER 2023-11-21 15:29 | Inpatient (IN) | payer OTHER, SELFPAY ==
--- NOTE | ~2023-11-21 | XR_ITS ---
EXAMINATION: XR UGIAC w small bowel DATE: 11/24/2023 11:03 INDICATION: Inflammatory bowel disease presenting with pain post needles TECHNIQUE: The patient drank thick barium, gas-producing crystals, and thin barium. Conventional supi ne abdomen radiographs and fluoroscopic spot radiographs of the esophagus, stomach, and proximal smal l bowel were obtained. Additional overhead radiographs were obtained during the transit through the s mall bowel. Spot fluoroscopic images of the small bowel were obtained upon contrast reaching the cec um. Fluoroscopy exposure time was 2.5 minutes. A total of 5 overhead radiographs and 560 fluoroscopic images were recorded. Total DAP was 88.4 Gycm^2 COMPARISON: CT dated 09/19/2023 FINDINGS: The esophagus is normal without mass or stricture. Esophageal motility is normal. There is no hiatal hernia. During the double contrast portion of the examination there was a spontaneous episode of john paul roesophageal reflux of a moderate amount of contrast and gas extending into the upper thoracic esopha duran. No subsequent gastroesophageal reflux was able to be elicited with provocative maneuvers. The st omach is normal. Small bowel diverticulum along the fourth portion of the duodenum and a couple addit ional diverticula along the proximal jejunum. Suture lines at the right lower quadrant on the clinical laboratory manager radiograph corresponding to an ileocolic anasto mosis on the prior CT. Transit time from the stomach to proximal colon was approximately 15 minutes. There is normal caliber throughout the small bowel. There is a normal mucosal fold pattern in the jej unum. The jejunal fold pattern however extends more distally than typical into the ilium. There is re lative paucity of folds and irregular mucosal contour suggesting small thickening in the remaining di stal ileum extending for approximately 15 cm proximal to the ileocolic anastomosis. IMPRESSION: 1. Single episode of spontaneous gastroesophageal reflux during the double contrast portion of the ex amination which was unable to be reproduced with subsequent provocative maneuvers. No hiatal hernia. 2. Ileocolic anastomosis in the right lower quadrant with irregular mucosal fold pattern without stri cture in the 15 cm of ileum proximal to the anastomosis consistent with reported history of inflammat ory bowel disease. No obstruction. 3. Nonspecific extension of the ileal mucosal fold pattern more distally into the jejunum than typica l but without jejunalization of the ileal pattern which would be more specific for celiac disease. Reviewed, dictated and finalized at location A. ER CONSULTANT IMPRESSION: 1. Single episode of spontaneous gastroesophageal reflux during the double cont rast portion of the examination which was unable to be reproduced with subseque nt provocative maneuvers. No hiatal hernia. 2. Ileocolic anastomosis in the right lower quadrant with irregular mucosal fol d pattern without stricture in the 15 cm of ileum proximal to the anastomosis c onsistent with reported history of inflammatory bowel disease. No obstruction. 3. Nonspecific extension of the ileal mucosal fold pattern more distally into t he jejunum than typical but without jejunalization of the ileal pattern which w ould be more specific for celiac disease.
--- NOTE | ~2023-11-21 | XR_ITS ---
EXAMINATION: XR chest 1V portable Exam Date/Time: 11/21/2023 18:10 CONSULTING NURSE HISTORY: abd pain Comparison: 11/19/2021. RESULT: Lines, tubes, and devices: None. Lungs and pleura: Clear. Cardiomediastinal silhouette: Stable. Other: No acute osseous or upper abdominal finding. IMPRESSION: No acute cardiopulmonary process. Reviewed, dictated and finalized at location K. ULTING NURSE
--- NOTE | 2023-11-21 15:32 | ADMGEN ---
This patient, Saira Colbert, was admitted to Medical Room 248-. Patient/family oriented to hospital policies and general routines including ID bracelet, bed and alarms, visiting hours, pain management, procedures, bathroom and other care routines, personal items, smoking policy, room service/diet, and visiting hours. Information on how to activate the Rapid Response Team has been discussed. Patient/Family are encouraged to report perceived risks to care and to ask questions if they do not understand what they are told or what they should do.
[2023-11-21 15:38] VITALS: BMI 39.2
[2023-11-21 15:50] VITALS: BP 134/65; PULSE 79; RESP 18; TEMP 36.4; O2SAT 98
--- NOTE | 2023-11-21 18:02 | PM.IMHP ---
H&P: HPI History of Present Illness Date/Time: 11/21/23 18:02 Chief Complaint: transferred from [facility] for abd pain. Narrative: 63 yo F with PMH of Crohn's disease, HTN, GREGORIA, who was transferred from [facility] on account of abd pain. Patient noted she has had Crohn's disease with diarrhea about 3-5 x/day was recently diagnosed C diff and bowel movement went up to 15x/day and she was placed on Deficid and her diarrhea has resolved to her baseline. also has a history of recurrent c diff. Patient noted she has chronic right-sided pain the duration of her crohn's diagnosis, however about a month ago she started having abd pain across upper abd region, described as sharp, and worse with food. For this she presented to the outside facility where. Denies any vomiting, dysuria, cough or chest pain. However noted exertional SOB, and lower extremities swelling. CT AP from the outside facility showed perianal/rectal and terminal ileum stranding, US liver showed gallbladder sludge, and steatosis. Gi was consulted prior to transfer. Review of Systems Review of Systems: all other systems were reviewed and negative except as noted in the HPI above COUNTS INCLUDE 234 BEDS AT THE [facility] Past Medical History Medical History Allergies Arthritis Arthritis in Crohn's disease with complication BMI 39.0-39.9,adult Cellulitis Crohn's disease Degenerative joint disease Diarrhea Elevated glucose Fatigue Grieving Headache Hypertension Hypokalemia Incisional hernia without obstruction or gangrene Inflammatory arthritis Low back pain Nausea and vomiting Obstructive sleep apnea Osteopenia Pain, joint, multiple sites Skin lesion Tobacco abuse Umbilical hernia Yeast infection Surgical History Surgical History History of ankle surgery ORIF right ankle fracture. History of bowel resection History of colonoscopy History of fusion of cervical spine History of hernia repair History of right hemicolectomy (2019) History of tubal ligation Family History Family History Father Diabetes mellitus Malignant neoplasm of prostate Hypertension Family history of diabetes mellitus in first degree relative Family history of malignant neoplasm of urinary bladder Family history of heart disease in male family member before age 55 Mother Diabetes mellitus Family history of kidney disease Patient's mother is Other Family history of cardiovascular disease Social History Social History Social History: Surrogate medical decision maker: Reynold Colbert, spouse. Code status: Full code. Smoking packs per day: 0.5 Smoking cigarettes per day: 10.0 Years smoked: 50 Smoking pack-years: 25.00 Smoking status: Current every day smoker Tobacco type: cigarettes Second hand tobacco smoke exposure: No Alcohol intake: current Drinks per week: 1 Substance use: never Substance use type: does not use Do You Feel Safe in your Home?: Yes Lack of Transportation: No Lack of Food: Never True Current Housing: I Have Housing Concerned About Future Housing: No Difficulty Paying Gas/Electric Bills: No Difficulty Paying for Meds: No Currently Unemployed: No Education: Associate Degree Difficulty w/ Childcare or Family Care: No Living arrangements: with family Occupation/Education: retired Spiritual care concerns: No Agree to blood products: Yes Meds Home Medications and Allergies Home Medications Medication Instructions Recorded Confirmed Type duloxetine 60 mg capsule,delayed 60 mg PO BID #60 caps 11/26/22 11/21/23 Rx release adalimumab 40 mg/0.4 mL See Rx Instructions subcut 12/24/22 11/21/23 Rx subcutaneous pen kit (Isidoro(CF) .COMPLEX #2 ea
[2023-11-21 19:21] LABS: Basophils Percent Auto 0.2 % (0.2-1.2); Hematocrit 39.4 % (37.0-47.0); Hemoglobin 12.6 g/dL (12.0-15.0); Immature Granulocyte Absolute 0.15 K/mm3 (0.00-0.031); Immature Granulocyte Percent A 1.7 % (0-0.5); Lymphocytes Absolute Auto 0.93 K/mm3 (0.9-3.2); Lymphocytes Percent Auto 10.5 % (18.3-44.2); Mean Corpuscular Hemoglobin 29.9 pg (26-34); Mean Corpuscular Volume 93.4 fl (80-100); Mean Platelet Volume 8.3 fl (7.4-10.4); Monocytes Absolute Auto 0.1 K/mm3 (0.1-0.6); Monocytes Percent Auto 1.6 % (2.6-8.5); Neutrophils Absolute Auto 7.6 K/mm3 (1.3-6.7); Platelet Count Result 303 k/mm3 (150-375); Red Blood Count 4.22 M/mm3 (4.2-5.4); Red Cell Distribution Width 13.6 % (11.5-14.5); White Blood Count 8.8 K/mm3 (4.5-10.0)
[2023-11-21 19:31] LABS: Alanine Aminotransferase 21 U/L (6-35); Albumin Level 3.5 g/dL (3.5-5.1); Alkaline Phosphatase 132 U/L (38-126); Anion Gap 5 mmol/L (8-16); Aspartate Amino Transferase 26 U/L (14-36); Bilirubin,Total 0.4 mg/dL (0.2-1.3); Blood Urea Nitrogen 9 mg/dL (7-17); Calcium 8.9 mg/dL (8.4-10.2); Carbon Dioxide 25 mmol/L (22-30); Chloride 104 mmol/L (98-107); Estimated CRCL calculation 78 ml/min; Estimated Glomerular Filt Rate > 60; Glucose 207 mg/dL (65-110); Lactic Acid Reflex 1.6 mmol/L (0.7-2.0); Magnesium 2.1 mg/dL (1.6-2.3); Potassium 3.9 mmol/L (3.4-5.0); Sodium 134 mmol/L (137-145)
[2023-11-21 19:42] VITALS: BP 133/70; PULSE 73; RESP 16; TEMP 36.3; O2SAT 96
[2023-11-21] MEDS: PANTOPRAZOLE SODIUM IV 40 MG VIAL IV PUSH (20:38)
[2023-11-21 21:05] LABS: Toxigenic C. Diff NEGATIVE (NEGATIVE)
[2023-11-22] MEDS: MORPHINE SULFATE (*CRX) 2 MG/ML INJ IV PUSH
[2023-11-22 05:04] VITALS: BP 106/80; PULSE 77; RESP 16; TEMP 36.4; O2SAT 97
--- NOTE | 2023-11-22 06:48 | WPDGICN ---
Assessment and Plan Assessment and plan (1) Crohn's disease: Code(s): K50.90 - Crohn's disease, unspecified, without complications Status: Acute Assessment and Plan: she has had Crohn's disease for several years. She had resection 5 years ago. She has continued to have loose stools ever since then. She had a colonoscopy just a couple months ago that showed ulceration at the ileocolic anastomosis but otherwise no disease in the colon. she has had persistent elevations of calprotectin and affect the last 1 done November 09 is 768 almost double it was 5 months ago. She does not recall being on Entocort but records show that she has had at least a short course of it sometime a year ago and also had been on a prednisone taper a year ago. She cannot recall if that helped not. I will start her empirically on steroids here to try to get her over this apparent flare up. (2) C. difficile colitis: Code(s): A04.72 - Enterocolitis due to Clostridium difficile, not specified as recurrent Status: Acute Assessment and Plan: She has had several courses of treatment over last 6 months for persistent and recurrent C diff colitis versus vancomycin and most recently with 2 different courses of Dificid. finished her last course yesterday and stool here today is negative. (3) Abdominal pain: Code(s): R10.9 - Unspecified abdominal pain Status: Acute Assessment and Plan: She has had pain across her upper abdomen for about a year but more severe pain localized to right upper quadrant just in the last 48 hours. She is tender to the touch. Ultrasound done yesterday else were showed fatty changes. CT scan done in [place] 2 days ago revealed fatty infiltration of the liver. Normal gallbladder. Some thickening of the wall of the rectum and also been noted on a previous study here. Also some thickening and nondistention of the distal ileum was noted but there was no small bowel distension. She had HIDA scan done yesterday and we do not yet have those results. (4) Diarrhea: Code(s): R19.7 - Diarrhea, unspecified Status: Acute Assessment and Plan: This is chronic. Was worse when she had C diff but she is accustomed to having at least 10 loose bowel movements every day. Humira which she has taken for 8 months has not seemed to had any effect on her stool consistency or frequency. Plan Clear liquid diet for now need to obtain results of HIDA scan start intravenous steroids with thoughts of her of transitioning to budesonide. GI Consult Note Consult date/time: 11/22/23 06:48 HPI: Saira Colbert is a 63 year old female with known Crohn's disease when fact had resection of terminal ileum and right colon 4 years ago. She has been followed here by Dr. Turner. She has in the past been on Remicade which she did not tolerate. She got approved for Humira just under a year ago but states that has done nothing for her yet. She continues to have watery stools every day, sometimes up to 10-15 times. She has had C difficile colitis treated 3 separate times in the past 6 months or so. She just finished a course of Dificid for a recent episode of C diff. Her last dose was yesterday. A stool sent yesterday to our lab was negative for C diff. she states she has lost about 12 lb in last several months. As she her main complaint now is that for the past year so she has had pain across her upper abdomen that always seems to get worse when she eats. For the last 2 days she has had a severe pain in the right upper quadrant and right lower thoracic area. This is much worse when she tries to eat. She has been able to get clear liquids down but when she was given regular food at the hospital in [place] yesterday she developed severe pain. An ultrasound was done that shows a fatty liver. HIDA scan was done but we do not have those results as of yet. she has had serial calprotectin lev
[2023-11-22 08:15] LABS: CRP 0.7 mg/dL (<1.0)
[2023-11-22] MEDS: DULoxetine HCL 60 MG CAPSULE.DR PO ×2 (09:00→17:22)
[2023-11-22] MEDS: buPROPion HCL XL (24 HR) 150 MG TABCR PO (09:00)
[2023-11-22] MEDS: methylPREDNISolone SOD SUCC 125 MG VIAL 60 MG IV PUSH ×3 (09:01→17:22)
[2023-11-22] MEDS: ENOXAPARIN 40 MG/0.4 ML SYRINGE SUB-Q (09:01)
[2023-11-22] MEDS: PANTOPRAZOLE SODIUM IV 40 MG VIAL IV PUSH ×2 (09:01→20:48)
--- NOTE | 2023-11-22 13:37 | PM.IMPN ---
Progress Note: A&P Assessment and Plan (1) Crohn's disease: Code(s): K50.90 - Crohn's disease, unspecified, without complications Status: Acute Assessment and Plan: CT abdomen and pelvis showed perianal and terminal ileum fat stranding Stool culture negative for C. Diff Holding Humira until evaluated by GI GI consulted and recommending IV steroids at this time. Has recently completed treatment for C diff. Clear liquid diet HIDA scan from outside facility pending. (2) Abdominal pain: Code(s): R10.9 - Unspecified abdominal pain Status: Acute Assessment and Plan: likely related to Crohn's disease continue above care started on Protonix PRN pain control (3) C. difficile colitis: Code(s): A04.72 - Enterocolitis due to Clostridium difficile, not specified as recurrent Status: Acute Assessment and Plan: History recurrent C diff Noted her diarrhea has resolved to back her chronic frequency from Crohn's disease complete Dificid regimen 1-2 days prior to ED arrival. (4) Diarrhea: Code(s): R19.7 - Diarrhea, unspecified Status: Acute Assessment and Plan: likely from crohn's disease Gi consulted (5) Obstructive sleep apnea: Code(s): G47.33 - Obstructive sleep apnea (adult) (pediatric) Status: Acute Assessment and Plan: continue CPAP at night (6) Hyperlipidemia: Qualifiers: Hyperlipidemia type: mixed hyperlipidemia Qualified Code(s): E78.2 - Mixed hyperlipidemia Code(s): E78.5 - Hyperlipidemia, unspecified Status: Acute Assessment and Plan: continue home meds (7) Hypertension: Code(s): I10 - Essential (primary) hypertension Status: Acute Assessment and Plan: Titrate home meds with clinical course (8) Hypokalemia: Code(s): E87.6 - Hypokalemia Status: Acute Assessment and Plan: repeat CMP and replaced if low (9) SOB (shortness of breath): Code(s): R06.02 - Shortness of breath Status: Resolved Assessment and Plan: CXR no acute cardiopulmonary process Resolved Plan DVT prophylaxis on Lovenox Subjective Date/time seen: 11/22/23 13:37 Interval history: Patient continuing to have abdominal pain. Most of her pain is in the right upper quadrant. Patient states that she has chronic diarrhea that is unchanged with occasional bloody stools which is also normal for her. Her H&H is stable. she has not had any fevers, nausea or vomiting. She has recently treated for C diff and has completed treatment of this a couple days ago. She has had C diff 4 times in the last year. GI consulted on the case. Patient being treated for a Crohn's disease flare. Continue IV Steroids at this time. Exam Narrative: GENERAL: Comfortable, no acute distress HENMT: moist mucous membranes EYES: EOM intact b/l NECK: no lymphadenopathy RESPIRATORY: clear to auscultation CARDIO: RRR GI: soft, nontender, Hyperactive bowel sounds SKIN: no rashes EXTREMITIES: no edema, redness or tenderness Objective Data Vital Signs Vital Signs: Vital Signs - 24 hr 11/21/23 15:50 11/21/23 19:42 11/21/23 20:00 Temperature 97.5 F L 97.4 F L Pulse Rate 79 73 Respiratory Rate 18 16 Blood Pressure 134/65 133/70 Pulse Oximetry 98 96 Oxygen Delivery Room Air 11/22/23 05:04 11/22/23 09:00 Temperature 97.6 F Pulse Rate 77 Respiratory Rate 16 Blood Pressure 106/80 Pulse Oximetry 97 Oxygen Delivery Room Air Intake/Output Intake/Output: Intake & Output 11/19/23 11/20/23 11/21/23 11/22/23 23:59 23:59 23:59 23:59 Intake Total 690 1130 Output Total 200 900 Balance 490 230 Meds/Results Medications: Active Medications Generic Name Dose Route Start Last Admin Trade Name Freq PRN Reason Stop Dose Admin Acetaminophen 650 mg 11/21/23 17:55 Acetaminophen 32
[2023-11-22 13:43] VITALS: BP 137/87; PULSE 80; RESP 16; TEMP 36.2; O2SAT 98
[2023-11-22 20:36] VITALS: BP 171/80; PULSE 74; RESP 18; TEMP 36.9; O2SAT 94
[2023-11-23] MEDS: methylPREDNISolone SOD SUCC 125 MG VIAL 60 MG IV PUSH ×4 (00:23→17:26)
[2023-11-23 05:05] VITALS: BP 141/58; PULSE 61; RESP 18; TEMP 36.9; O2SAT 98
--- NOTE | 2023-11-23 07:17 | WPDGIPROGNO ---
Progress Note: A&P Assessment and Plan (1) Crohn's disease: Code(s): K50.90 - Crohn's disease, unspecified, without complications Status: Acute Assessment and Plan: she has had Crohn's disease for several years. She had resection 5 years ago. She has continued to have loose stools ever since then. She had a colonoscopy just a couple months ago that showed ulceration at the ileocolic anastomosis but otherwise no disease in the colon. she has had persistent elevations of calprotectin and affect the last 1 done November 09 is 768 almost double it was 5 months ago. She does not recall being on Entocort but records show that she has had at least a short course of it sometime a year ago and also had been on a prednisone taper a year ago. She cannot recall if that helped not. I will start her empirically on steroids here to try to get her over this apparent flare up. Her appetite is back. She still has loose stools but no lower abdominal pain today. (2) C. difficile colitis: Code(s): A04.72 - Enterocolitis due to Clostridium difficile, not specified as recurrent Status: Acute Assessment and Plan: She has had several courses of treatment over last 6 months for persistent and recurrent C diff colitis versus vancomycin and most recently with 2 different courses of Dificid. finished her last course yesterday and stool here today is negative. (3) Abdominal pain: Code(s): R10.9 - Unspecified abdominal pain Status: Acute Assessment and Plan: She has had pain across her upper abdomen for about a year but more severe pain localized to right upper quadrant just in the last 48 hours. She is tender to the touch. Ultrasound done yesterday else were showed fatty changes. CT scan done in [place] 2 days ago revealed fatty infiltration of the liver. Normal gallbladder. Some thickening of the wall of the rectum and also been noted on a previous study here. Also some thickening and nondistention of the distal ileum was noted but there was no small bowel distension. She had HIDA scan done yesterday and we do not yet have those results. We will again request results of HIDA scan. It was requested yesterday but we continue to receive the same hospital discharge summary. (4) Diarrhea: Code(s): R19.7 - Diarrhea, unspecified Status: Acute Assessment and Plan: This is chronic. Was worse when she had C diff but she is accustomed to having at least 10 loose bowel movements every day. Humira which she has taken for 8 months has not seemed to had any effect on her stool consistency or frequency. Plan Clear liquid diet for now need to obtain results of HIDA scan start intravenous steroids with thoughts of her of transitioning to budesonide. 11/23 feels much better. She attributes that to steroids. We will try advancing her diet. May be able to send home today with taper oral steroids Subjective Date/time seen: 11/23/23 07:17 she is feeling much better. Has an appetite and is hungry. The pain in the right upper quadrant has improved. She notes that is mostly along the costal margin that she is uncomfortable. A chest x-ray done yesterday does not show any acute changes. Her bowel movements are still loose but that is a chronic issue for her. Not having lower abdominal pain today. She attributes her improvement to the steroids. Exam Const: General: cooperative, healthy appearing and overweight Nutritional Appearance: overweight Orientation/consciousness: patient oriented x3 HENMT: Head: normal to inspection Ears: hearing grossly normal bilaterally Mouth: Yes Normal oral and palatal mucosa present Eyes: General: appearance normal, both eyes and all related structures Neck: Neck: normal visual inspection Chest: Chest palpation & inspection: normal inspection of the chest Resp: Effort & Inspection: normal respiratory effort Auscultation: clear to ausc
[2023-11-23 07:57] LABS: Hematocrit 41.4 % (37.0-47.0); Hemoglobin 13.4 g/dL (12.0-15.0); Mean Corpuscular HGB Conc 32.4 g/dl (32-36); Mean Corpuscular Volume 92.8 fl (80-100); Mean Platelet Volume 8.5 fl (7.4-10.4); Platelet Count Result 330 k/mm3 (150-375); Red Blood Count 4.46 M/mm3 (4.2-5.4); Red Cell Distribution Width 13.5 % (11.5-14.5); White Blood Count 10.3 K/mm3 (4.5-10.0)
[2023-11-23 08:24] LABS: Alanine Aminotransferase 24 U/L (6-35); Albumin Level 3.7 g/dL (3.5-5.1); Alkaline Phosphatase 124 U/L (38-126); Anion Gap 6 mmol/L (8-16); Aspartate Amino Transferase 25 U/L (14-36); Bilirubin,Total 0.5 mg/dL (0.2-1.3); Blood Urea Nitrogen 7 mg/dL (7-17); Carbon Dioxide 27 mmol/L (22-30); Chloride 101 mmol/L (98-107); Estimated CRCL calculation 78 ml/min; Estimated Glomerular Filt Rate > 60; Glucose 206 mg/dL (65-110); Potassium 3.6 mmol/L (3.4-5.0); Sodium 134 mmol/L (137-145)
[2023-11-23] MEDS: buPROPion HCL XL (24 HR) 150 MG TABCR PO (09:02)
[2023-11-23] MEDS: ENOXAPARIN 40 MG/0.4 ML SYRINGE SUB-Q (09:02)
[2023-11-23] MEDS: PANTOPRAZOLE SODIUM IV 40 MG VIAL IV PUSH ×2 (09:02→20:47)
[2023-11-23] MEDS: DULoxetine HCL 60 MG CAPSULE.DR PO ×2 (09:02→17:26)
[2023-11-23] MEDS: ONDANSETRON INJ 4 MG/2 ML VIAL IV PUSH (09:34)
[2023-11-23] MEDS: MORPHINE SULFATE (*CRX) 2 MG/ML INJ IV PUSH (09:34)
--- NOTE | 2023-11-23 13:01 | PM.IMPN ---
Progress Note: A&P Assessment and Plan (1) Crohn's disease: Code(s): K50.90 - Crohn's disease, unspecified, without complications Status: Acute (2) Abdominal pain: Code(s): R10.9 - Unspecified abdominal pain Status: Acute (3) C. difficile colitis: Code(s): A04.72 - Enterocolitis due to Clostridium difficile, not specified as recurrent Status: Acute (4) Diarrhea: Code(s): R19.7 - Diarrhea, unspecified Status: Acute (5) Obstructive sleep apnea: Code(s): G47.33 - Obstructive sleep apnea (adult) (pediatric) Status: Acute Assessment and Plan: continue CPAP at night (6) Hyperlipidemia: Qualifiers: Hyperlipidemia type: mixed hyperlipidemia Qualified Code(s): E78.2 - Mixed hyperlipidemia Code(s): E78.5 - Hyperlipidemia, unspecified Status: Acute (7) Hypertension: Code(s): I10 - Essential (primary) hypertension Status: Acute (8) Hypokalemia: Code(s): E87.6 - Hypokalemia Status: Acute (9) SOB (shortness of breath): Code(s): R06.02 - Shortness of breath Status: Resolved Plan Acute exacerbation Crohn's disease CT abdomen and pelvis showed perianal and terminal ileum fat stranding Stool culture negative for C. Diff GI consulted and recommending IV steroids at this time. Has recently completed treatment for C diff. Clear liquid diet attempted to advance 11/23 but unable to tolerated swithed back HIDA scan from outside facility pending. Pain Control de-escalate as tolerated PPI HX recurrent C diff History recurrent C diff Noted her diarrhea has resolved to back her chronic frequency from Crohn's disease complete Dificid regimen? 1-2 days prior to ED arrival. educated on fecal transplant Hypokalemia Secondary to crohn's and diarrhia monitor and replenish as needed daily BMP GREGORIA CPAP at night Code status: Full code per patient DVT prophylaxis: Lovenox Stress ulcer prophylaxis: Protonix 40 daily PT/OT notes:Ambulatory Disposition: Patient continues admission to the medical-surgical unit for further treatment of her Crohn's exacerbation unable to tolerate oral intake switch back to clear liquids still awaiting records HIDA scan. Patient is ambulatory on her own and will discharge back to home when medically stable. Time Spent With Patient Time with patient: 25 - 35 minutes Subjective Date/time seen: 11/23/23 13:01 Interval history: H&P (Medical record) Chief Complaint: transferred from [facility] for abd pain. Narrative: 63 yo F with PMH of Crohn's disease, HTN, GREGORIA, who was transferred from [facility] on account of abd pain. Patient noted she has had Crohn's disease with diarrhea about 3-5 x/day was recently diagnosed C diff and bowel movement went up to 15x/day and she was placed on Deficid and her diarrhea has resolved to her baseline. also has a history of recurrent c diff. Patient noted she has chronic right-sided pain the duration of her crohn's diagnosis, however about a month ago she started having abd pain across upper abd region, described as sharp, and worse with food. For this she presented to the outside facility where. Denies any vomiting, dysuria, cough or chest pain. However noted exertional SOB, and lower extremities swelling. CT AP from the outside facility showed perianal/rectal and terminal ileum stranding, US liver showed gallbladder sludge, and steatosis. Gi was consulted prior to transfer. 11/22:(Medical Record) Patient continuing to have abdominal pain. Most of her pain is in the right upper quadrant. Patient states that she has chronic diarrhea that is unchanged with occasional bloody stools which is also normal for her. Her H&H is stable. she has not had any fevers, nausea or vomiting. She has recently treated for C diff and has completed treatment of this a couple days ago. She has had C diff
[2023-11-23 13:18] VITALS: BP 145/66; PULSE 93; RESP 18; TEMP 36.2; O2SAT 99
[2023-11-23] MEDS: oxyCODONE/ACETAMINOPHEN (*CRX) 5-325 MG TABLET 1 TABLET PO (13:30)
--- NOTE | 2023-11-23 14:21 | PHAR ---
Humira pen 40mg/0.4ml for sub cutaneous use only identified
[2023-11-23 20:43] VITALS: BP 141/74; PULSE 89; RESP 18; TEMP 36.8; O2SAT 98
[2023-11-24] MEDS: methylPREDNISolone SOD SUCC 125 MG VIAL 60 MG IV PUSH ×3 (00:12→11:28)
[2023-11-24 05:20] LABS: Hematocrit 43.8 % (37.0-47.0); Mean Corpuscular Hemoglobin 30.2 pg (26-34); Mean Corpuscular Volume 94.4 fl (80-100); Mean Platelet Volume 8.4 fl (7.4-10.4); Platelet Count Result 338 k/mm3 (150-375); Red Blood Count 4.64 M/mm3 (4.2-5.4); Red Cell Distribution Width 13.7 % (11.5-14.5); White Blood Count 12.7 K/mm3 (4.5-10.0)
[2023-11-24 05:57] LABS: Alanine Aminotransferase 22 U/L (6-35); Albumin Level 3.8 g/dL (3.5-5.1); Alkaline Phosphatase 123 U/L (38-126); Anion Gap 6 mmol/L (8-16); Aspartate Amino Transferase 23 U/L (14-36); Bilirubin,Total 0.5 mg/dL (0.2-1.3); Blood Urea Nitrogen 11 mg/dL (7-17); Calcium 9.2 mg/dL (8.4-10.2); Carbon Dioxide 32 mmol/L (22-30); Chloride 99 mmol/L (98-107); Estimated CRCL calculation 69 ml/min; Estimated Glomerular Filt Rate > 60; Glucose 154 mg/dL (65-110); Potassium 4.1 mmol/L (3.4-5.0); Sodium 137 mmol/L (137-145)
[2023-11-24 06:00] VITALS: BP 142/62; PULSE 66; RESP 18; TEMP 36.7; O2SAT 96
--- NOTE | 2023-11-24 06:32 | WPDGIPROGNO ---
Progress Note: A&P Assessment and Plan (1) Crohn's disease: Code(s): K50.90 - Crohn's disease, unspecified, without complications Status: Acute Assessment and Plan: she has had Crohn's disease for several years. She had resection 5 years ago. She has continued to have loose stools ever since then. She had a colonoscopy just a couple months ago that showed ulceration at the ileocolic anastomosis but otherwise no disease in the colon. she has had persistent elevations of calprotectin and affect the last 1 done November 09 is 768 almost double it was 5 months ago. She does not recall being on Entocort but records show that she has had at least a short course of it sometime a year ago and also had been on a prednisone taper a year ago. She cannot recall if that helped not. I will start her empirically on steroids here to try to get her over this apparent flare up. Her appetite is back. 11/24/2023 every time she tries to eat she is having pain. (2) C. difficile colitis: Code(s): A04.72 - Enterocolitis due to Clostridium difficile, not specified as recurrent Status: Acute Assessment and Plan: She has had several courses of treatment over last 6 months for persistent and recurrent C diff colitis versus vancomycin and most recently with 2 different courses of Dificid. finished her last course yesterday and stool here today is negative. (3) Abdominal pain: Code(s): R10.9 - Unspecified abdominal pain Status: Acute Assessment and Plan: She has had pain across her upper abdomen for about a year but more severe pain localized to right upper quadrant just in the last 48 hours. She is tender to the touch. Ultrasound done yesterday else were showed fatty changes. CT scan done in [place] 2 days ago revealed fatty infiltration of the liver. Normal gallbladder. Some thickening of the wall of the rectum and also been noted on a previous study here. Also some thickening and nondistention of the distal ileum was noted but there was no small bowel distension. She had HIDA scan done yesterday and we do not yet have those results. We will again request results of HIDA scan. It was requested yesterday but we continue to receive the same hospital discharge summary. (4) Diarrhea: Code(s): R19.7 - Diarrhea, unspecified Status: Acute Assessment and Plan: This is chronic. Was worse when she had C diff but she is accustomed to having at least 10 loose bowel movements every day. Humira which she has taken for 8 months has not seemed to had any effect on her stool consistency or frequency. Stools have not been as frequent here Plan Clear liquid diet for now need to obtain results of HIDA scan start intravenous steroids with thoughts of her of transitioning to budesonide. 11/23 feels much better. She attributes that to steroids. We will try advancing her diet. May be able to send home today with taper oral steroids 11/24/2023 still with pain after eating even with full liquids. Will order upper GI small-bowel series. Because she does have inflammatory bowel disease, we need to consider the possibility she could have areas of narrowing in the small bowel. Subjective Date/time seen: 11/24/23 06:32 she feels good this morning. However every time she eats, even full liquids she gets pain. The pattern is the same. Is. Dominantly in the right upper quadrant and radiates across to the left and then sometimes to the lower mid abdomen. She had not had this prior to this admission. She feels great otherwise and feel that the steroids have helped significantly. She is no longer requesting morphine. She did however take Percocet for pain last night and states that helped immensely. Exam Const: General: cooperative, healthy appearing and overweight Nutritional Appearance: overweight Orientation/consciousness: patient oriented x3 HENMT: Head: normal to in
--- NOTE | 2023-11-24 07:38 | PM.IMPN ---
Progress Note: A&P Assessment and Plan (1) Crohn's disease: Code(s): K50.90 - Crohn's disease, unspecified, without complications Status: Acute (2) Abdominal pain: Code(s): R10.9 - Unspecified abdominal pain Status: Acute (3) C. difficile colitis: Code(s): A04.72 - Enterocolitis due to Clostridium difficile, not specified as recurrent Status: Acute (4) Diarrhea: Code(s): R19.7 - Diarrhea, unspecified Status: Acute (5) Obstructive sleep apnea: Code(s): G47.33 - Obstructive sleep apnea (adult) (pediatric) Status: Acute Assessment and Plan: continue CPAP at night (6) Hyperlipidemia: Qualifiers: Hyperlipidemia type: mixed hyperlipidemia Qualified Code(s): E78.2 - Mixed hyperlipidemia Code(s): E78.5 - Hyperlipidemia, unspecified Status: Acute (7) Hypertension: Code(s): I10 - Essential (primary) hypertension Status: Acute (8) Hypokalemia: Code(s): E87.6 - Hypokalemia Status: Acute (9) SOB (shortness of breath): Code(s): R06.02 - Shortness of breath Status: Resolved Plan Acute exacerbation Crohn's disease CT abdomen and pelvis showed perianal and terminal ileum fat stranding Stool culture negative for C. Diff GI consulted and recommending IV steroids at this time. Has recently completed treatment for C diff. Clear liquid diet attempted to advance 11/23 but unable to tolerated swithed back HIDA scan from outside facility pending. Pain Control de-escalate as tolerated PPI 11/24: Upper GI series pending full liquid HX recurrent C diff History recurrent C diff Noted her diarrhea has resolved to back her chronic frequency from Crohn's disease complete Dificid regimen? 1-2 days prior to ED arrival. educated on fecal transplant Hypokalemia-RESOLVED 11/24 Secondary to crohn's and diarrhia monitor and replenish as needed daily BMP GREGORIA CPAP at night Code status: Full code per patient DVT prophylaxis: Lovenox Stress ulcer prophylaxis: Protonix 40 daily PT/OT notes:Ambulatory Disposition: Patient continues admission to the medical-surgical unit for further treatment of her Crohn's exacerbation unable to tolerate oral intake switch back to clear liquids upper GI series pending still awaiting records HIDA scan. Patient is ambulatory on her own and will discharge back to home when medically stable. Time Spent With Patient Time with patient: 15 - 25 minutes Subjective Date/time seen: 11/24/23 07:38 Interval history: H&P (Medical record) Chief Complaint: transferred from [facility] for abd pain. Narrative: 63 yo F with PMH of Crohn's disease, HTN, GREGORIA, who was transferred from [facility] on account of abd pain. Patient noted she has had Crohn's disease with diarrhea about 3-5 x/day was recently diagnosed C diff and bowel movement went up to 15x/day and she was placed on Deficid and her diarrhea has resolved to her baseline. also has a history of recurrent c diff. Patient noted she has chronic right-sided pain the duration of her crohn's diagnosis, however about a month ago she started having abd pain across upper abd region, described as sharp, and worse with food. For this she presented to the outside facility where. Denies any vomiting, dysuria, cough or chest pain. However noted exertional SOB, and lower extremities swelling. CT AP from the outside facility showed perianal/rectal and terminal ileum stranding, US liver showed gallbladder sludge, and steatosis. Gi was consulted prior to transfer. 11/22:(Medical Record) Patient continuing to have abdominal pain. Most of her pain is in the right upper quadrant. Patient states that she has chronic diarrhea that is unchanged with occasional bloody stools which is also normal for her. Her H&H is stable. she has not had any fevers, nausea or vomiting. She has recently treate
[2023-11-24] MEDS: DULoxetine HCL 60 MG CAPSULE.DR PO ×2 (11:31→17:28)
[2023-11-24] MEDS: ENOXAPARIN 40 MG/0.4 ML SYRINGE SUB-Q (11:31)
[2023-11-24] MEDS: buPROPion HCL XL (24 HR) 150 MG TABCR PO (11:31)
[2023-11-24] MEDS: PANTOPRAZOLE SODIUM IV 40 MG VIAL IV PUSH ×2 (11:32→20:33)
[2023-11-24 12:03] VITALS: BP 170/76; PULSE 74; RESP 14; TEMP 37; O2SAT 95
[2023-11-24 14:13] VITALS: BP 149/77; PULSE 87; RESP 18; TEMP 35.9; O2SAT 98
[2023-11-24] MEDS: oxyCODONE/ACETAMINOPHEN (*CRX) 5-325 MG TABLET 1 TABLET PO (15:23)
[2023-11-24 21:33] VITALS: BP 130/63; PULSE 73; RESP 20; TEMP 36.8; O2SAT 96
[2023-11-25 04:03] VITALS: BP 122/58; PULSE 72; RESP 20; TEMP 36.7; O2SAT 95
[2023-11-25 05:11] LABS: Hemoglobin 12.9 g/dL (12.0-15.0); Mean Corpuscular HGB Conc 31.5 g/dl (32-36); Mean Corpuscular Hemoglobin 30.1 pg (26-34); Mean Corpuscular Volume 95.6 fl (80-100); Mean Platelet Volume 8.6 fl (7.4-10.4); Platelet Count Result 269 k/mm3 (150-375); Red Blood Count 4.29 M/mm3 (4.2-5.4); Red Cell Distribution Width 13.8 % (11.5-14.5); White Blood Count 11.3 K/mm3 (4.5-10.0)
[2023-11-25 05:24] LABS: Alanine Aminotransferase 19 U/L (6-35); Albumin Level 3.1 g/dL (3.5-5.1); Alkaline Phosphatase 106 U/L (38-126); Anion Gap 4 mmol/L (8-16); Aspartate Amino Transferase 23 U/L (14-36); Bilirubin,Total 0.3 mg/dL (0.2-1.3); Blood Urea Nitrogen 17 mg/dL (7-17); Calcium 8.4 mg/dL (8.4-10.2); Carbon Dioxide 27 mmol/L (22-30); Chloride 103 mmol/L (98-107); Estimated CRCL calculation 69 ml/min; Estimated Glomerular Filt Rate > 60; Glucose 150 mg/dL (65-110); Potassium 3.4 mmol/L (3.4-5.0); Sodium 134 mmol/L (137-145)
[2023-11-25] MEDS: PANTOPRAZOLE SODIUM IV 40 MG VIAL IV PUSH (08:19)
[2023-11-25] MEDS: LACTATED RINGERS 1,000 ML 150 ML IV CONT (13:37)
[2023-11-25 13:41] VITALS: BP 137/75; PULSE 80; RESP 16; TEMP 36.4; O2SAT 100
--- NOTE | 2023-11-25 14:29 | WPDANESEPPF ---
Anes - Initial Pre Proc Eval Procedure: Operation Date: 11/25/23 15:30 Proposed Procedures p Esophagogastroduodenoscopy - Adrian Corrigan MD Date/Time: 11/25/23 14:29 Surgeon: Brant Stockton MD Pre Op Diagnosis: Abdominal Pains/ Hx Crohns Patient Data Age: 63 Gender: F Height: 1.57 m Weight: 97.4 kg Last Vital Signs Temp 97.6 F 11/25/23 13:41 Pulse 80 11/25/23 13:41 Resp 16 11/25/23 13:41 BP 137/75 11/25/23 13:41 Pulse Ox 100 11/25/23 13:41 O2 Del Method Room Air 11/25/23 13:41 Allergies Allergy/AdvReac Type Severity Reaction Status Date / Time cyclobenzaprine Allergy Mild HYPERACTIVI Verified 11/25/23 13:40 TY infliximab [From Remicade] Allergy Mild Hives Verified 11/25/23 13:40 latex Allergy Mild Rash Verified 11/25/23 13:40 lisinopril Allergy Mild cough Verified 11/25/23 13:40 contact metal agent Allergy Hives Verified 11/25/23 13:40 hydrocodone AdvReac Mild N/V Verified 11/25/23 13:40 clindamycin AdvReac Unknown other Verified 11/25/23 13:40 hydromorphone [From Dilaudid] AdvReac Vomiting Verified 11/25/23 13:40 palm oil Allergy Intermediate Hives Uncoded 11/25/23 13:40 COCONUT Allergy Mild Hives / Uncoded 11/25/23 13:40 Red Face Delodium AdvReac Mild Vomiting Uncoded 11/25/23 13:40 Home Medications Medication Instructions Recorded Confirmed Type duloxetine 60 mg capsule,delayed 60 mg PO BID #60 caps 11/26/22 11/21/23 Rx release adalimumab 40 mg/0.4 mL See Rx Instructions subcut 12/24/22 11/21/23 Rx subcutaneous pen kit (Humira(CF) .COMPLEX #2 ea Pen) bupropion HCl 150 mg 24 hr tablet, 150 mg PO QAM #30 tabs 06/09/23 11/21/23 Rx extended release (Wellbutrin XL) fidaxomicin 200 mg tablet (Dificid) 200 mg PO BID 11/21/23 11/21/23 History Laboratory Tests 11/25/23 04:51 WBC 11.3 H K/mm3 (4.5-10.0) RBC 4.29 M/mm3 (4.2-5.4) Hgb 12.9 g/dL (12.0-15.0) Hct 41.0 % (37.0-47.0) MCV 95.6 fl (80-100) MCH 30.1 pg (26-34) MCHC 31.5 L g/dl (32-36) RDW 13.8 % (11.5-14.5) Plt Count 269 k/mm3 (150-375) MPV 8.6 fl (7.4-10.4) Sodium 134 L mmol/L (137-145) Potassium 3.4 mmol/L (3.4-5.0) Chloride 103 mmol/L (98-107) Carbon Dioxide 27 mmol/L (22-30) Anion Gap 4 L mmol/L (8-16) BUN 17 mg/dL (7-17) Creatinine 0.80 mg/dL (0.7-1.0) Estim Creat Clear Calc 69 ml/min Estimated GFR > 60 (59 - ) Glucose 150 H mg/dL (65-110) Calcium 8.4 mg/dL (8.4-10.2) Total Bilirubin 0.3 mg/dL (0.2-1.3) AST 23 U/L (14-36) ALT 19 U/L (6-35) Alkaline Phosphatase 106 U/L (38-126) Total Protein 6.0 L g/dL (6.3-8.2) Albumin 3.1 L g/dL (3.5-5.1) Patient hx anesthesia problems: none Family hx anesthesia problems: none Results Review: All pre-operative results and documents have been reviewed as part of the pre-operative evaluation. [facility] Past Medical History Medical History Allergies Arthritis Arthritis in Crohn's disease with complication BMI 39.0-39.9,adult Cellulitis Crohn's disease Degenerative joint disease Diarrhea Elevated glucose Fatigue Grieving Headache Hypertension Hypokalemia Incisional hernia without obstruction or gangrene Inflammatory arthritis Low back pain Nausea and vomiting Obstructive sleep apnea Osteopenia Pain, joint, multiple sites Skin lesion Tobacco abuse Umbilical hernia Yeast infection Surgical History Surgical History History of ankle surgery ORIF right ankle fracture. History of bowel resection History of colonoscopy History of fusion of cervical spine History of hernia repair History of right hemicolectomy (2019) History of tubal ligation Family History Family History Father Diabetes mellitus Malignant ne
[2023-11-25 14:55] VITALS: BP 147/78; PULSE 75; RESP 16; O2SAT 99
[2023-11-25 15:05] VITALS: BP 146/72; PULSE 78; RESP 20; O2SAT 98
[2023-11-25 15:15] VITALS: BP 144/80; PULSE 77; RESP 17; O2SAT 97
[2023-11-25 15:33] VITALS: BP 139/75; PULSE 84; RESP 16; TEMP 36.8; O2SAT 99
--- NOTE | 2023-11-25 15:55 | PM.DS ---
DS: Admitting Diagnosis Discharge Date 11/25/2023 Admitting Diagnosis Crohn's disease/ABD pain with N/V DS: Discharge Diagnosis Discharge Diagnosis (1) Crohn's disease: Code(s): K50.90 - Crohn's disease, unspecified, without complications Status: Acute (2) Abdominal pain: Code(s): R10.9 - Unspecified abdominal pain Status: Acute (3) C. difficile colitis: Code(s): A04.72 - Enterocolitis due to Clostridium difficile, not specified as recurrent Status: Acute (4) Diarrhea: Code(s): R19.7 - Diarrhea, unspecified Status: Acute (5) Obstructive sleep apnea: Code(s): G47.33 - Obstructive sleep apnea (adult) (pediatric) Status: Acute Assessment and Plan: continue CPAP at night (6) Hyperlipidemia: Qualifiers: Hyperlipidemia type: mixed hyperlipidemia Qualified Code(s): E78.2 - Mixed hyperlipidemia Code(s): E78.5 - Hyperlipidemia, unspecified Status: Acute (7) Hypertension: Code(s): I10 - Essential (primary) hypertension Status: Acute (8) Hypokalemia: Code(s): E87.6 - Hypokalemia Status: Acute (9) SOB (shortness of breath): Code(s): R06.02 - Shortness of breath Status: Resolved Plan Acute exacerbation Crohn's disease CT abdomen and pelvis showed perianal and terminal ileum fat stranding Stool culture negative for C. Diff GI consulted and recommending IV steroids at this time. Has recently completed treatment for C diff. Clear liquid diet attempted to advance 11/23 but unable to tolerated swithed back HIDA scan from outside facility pending. Pain Control de-escalate as tolerated PPI 11/24: Upper GI series pending full liquid HX recurrent C diff History recurrent C diff Noted her diarrhea has resolved to back her chronic frequency from Crohn's disease complete Dificid regimen? 1-2 days prior to ED arrival. educated on fecal transplant Hypokalemia-RESOLVED 11/24 Secondary to crohn's and diarrhia monitor and replenish as needed daily BMP GREGORIA CPAP at night Celiac Disease? -Gluten free Diet -biopsy pending Disposition: Patient discharged home will follow up with primary care and GI O/P. Patient educated on new diet until biopsy results. DS: Summary Hospital Course Reason for hospitalization: Crohn's disease exacerbation Hospital Course: H&P (Medical record) Chief Complaint: transferred from [facility] for abd pain. Narrative: 63 yo F with PMH of Crohn's disease, HTN, GREGORIA, who was transferred from [facility] on account of abd pain. Patient noted she has had Crohn's disease with diarrhea about 3-5 x/day was recently diagnosed C diff and bowel movement went up to 15x/day and she was placed on Deficid and her diarrhea has resolved to her baseline. also has a history of recurrent c diff. Patient noted she has chronic right-sided pain the duration of her crohn's diagnosis, however about a month ago she started having abd pain across upper abd region, described as sharp, and worse with food. For this she presented to the outside facility where. Denies any vomiting, dysuria, cough or chest pain. However noted exertional SOB, and lower extremities swelling. CT AP from the outside facility showed perianal/rectal and terminal ileum stranding, US liver showed gallbladder sludge, and steatosis. Gi was consulted prior to transfer. 11/22:(Medical Record) Patient continuing to have abdominal pain.? Most of her pain is in the right upper quadrant.? Patient states that she has chronic diarrhea that is unchanged with occasional bloody stools which is also normal for her.? Her H&H is stable.? she has not had any fevers, nausea or vomiting.? She has recently treated for C diff and has completed treatment of this a couple days ago.? She has had C diff 4 times in the last year. GI consulted on the case.? Patient being treated for a Crohn's disease terry
[2023-11-25] MEDS: predniSONE 20 MG, predniSONE 10 MG 30 MG PO (16:11)
[2023-11-25] MEDS: buPROPion HCL XL (24 HR) 150 MG TABCR PO (16:11)
[2023-11-25] MEDS: oxyCODONE/ACETAMINOPHEN (*CRX) 5-325 MG TABLET 1 TABLET PO (16:11)
[2023-11-25] MEDS: DULoxetine HCL 60 MG CAPSULE.DR PO (16:11)
== END 2023-11-25 16:30 | disposition home or self-care (01) | DRG 245 ==
PROVIDERS: Internal Medicine Gastroenterology; Admitting Provider Internal Medicine; PCP Nurse Practitioner Family; Visit Provider Nurse Practitioner Family
PROC: 0DJ08ZZ Inspection of Upper Intestinal Tract, Via Natural or Artificial Opening Endoscopic (ICD-10-PCS; CPT 43235; principal; 2023-11-25 15:30)
DX: K50.90 Crohn's disease, unspecified, without complications (principal); K21.9 Gastro-esophageal reflux disease without esophagitis; R93.3 Abnormal findings on diagnostic imaging of other parts of digestive tract; Z86.19 Personal history of other infectious and parasitic diseases; G47.33 Obstructive sleep apnea (adult) (pediatric); E78.2 Mixed hyperlipidemia; E87.6 Hypokalemia; I10 Essential (primary) hypertension; M85.80 Other specified disorders of bone density and structure, unspecified site; M19.90 Unspecified osteoarthritis, unspecified site; F17.210 Nicotine dependence, cigarettes, uncomplicated; E66.3 Overweight; Z68.39 Body mass index [BMI] 39.0-39.9, adult
CPT/HCPCS: 36415; 71045; 74246; 74248; 80053; 83605; 83735; 85025; 85027; 86140; 87045; 87081; 87427; 87449; 87493; 88305; A9270; C9113; J1650; J2001; J2270; J2405; J2704; J2930; J7120; J7512

== ENCOUNTER 2023-12-19 15:31 | Outpatient (CLI) | payer OTHER, SELFPAY ==
[2023-12-19 16:12] LABS: Hematocrit 45.3 % (37.0-47.0); Hemoglobin 14.9 g/dL (12.0-15.0); Mean Corpuscular HGB Conc 32.9 g/dl (32-36); Mean Corpuscular Hemoglobin 30.3 pg (26-34); Mean Corpuscular Volume 92.1 fl (80-100); Mean Platelet Volume 8.1 fl (7.4-10.4); Platelet Count Result 420 k/mm3 (150-375); Red Blood Count 4.92 M/mm3 (4.2-5.4); Red Cell Distribution Width 13.3 % (11.5-14.5)
[2023-12-19 16:26] LABS: Alanine Aminotransferase 21 U/L (6-35); Albumin Level 3.9 g/dL (3.5-5.1); Alkaline Phosphatase 185 U/L (38-126); Anion Gap 8 mmol/L (8-16); Aspartate Amino Transferase 23 U/L (14-36); Bilirubin,Total 0.5 mg/dL (0.2-1.3); Blood Urea Nitrogen 12 mg/dL (7-17); Calcium 9.1 mg/dL (8.4-10.2); Carbon Dioxide 25 mmol/L (22-30); Chloride 102 mmol/L (98-107); Estimated Glomerular Filt Rate > 60; Glucose 149 mg/dL (65-110); Potassium 3.4 mmol/L (3.4-5.0); Sodium 135 mmol/L (137-145)
== END 2023-12-19 15:32 | disposition home or self-care (01) ==
LOC: ANHLAB 15:32
PROVIDERS: PCP Nurse Practitioner Family; Visit Provider Nurse Practitioner
DX: A04.72 Enterocolitis due to Clostridium difficile, not specified as recurrent (principal); R19.7 Diarrhea, unspecified; K50.00 Crohn's disease of small intestine without complications
CPT/HCPCS: 36415; 80053; 85027

== ENCOUNTER 2023-12-20 13:10 | Outpatient (CLI) | payer OTHER, SELFPAY ==
[2023-12-20 14:13] LABS: Toxigenic C. Diff NEGATIVE (NEGATIVE)
[2023-12-26 23:46] LABS: Calprotectin, Stool 1450 mcg/g
== END 2023-12-20 13:11 | disposition home or self-care (01) ==
LOC: ANHLAB 13:10
PROVIDERS: PCP Nurse Practitioner Family; Visit Provider Nurse Practitioner
DX: A04.72 Enterocolitis due to Clostridium difficile, not specified as recurrent (principal); K50.00 Crohn's disease of small intestine without complications
CPT/HCPCS: 83993; 87493

== ENCOUNTER 2024-01-02 17:37 | Observation (INO) | payer OTHER, SELFPAY ==
--- NOTE | ~2024-01-02 | CT_ITS ---
EXAMINATION: CT abdomen pelvis w con DATE: 01/02/2024 23:56 INDICATION: RLQ Pain TECHNIQUE: Computed tomography (CT) of the abdomen and pelvis was performed with 100 mL Omnipaque-350 intravenous contrast. Automated exposure control and iterative reconstruction technique were employe d. The dose-length product was 1128.55 mGy-cm. COMPARISON: 09/19/2023; CT abdomen pelvis 01/06/2023 report only. FINDINGS: Lower thorax: Granulomatous calcifications. Coronary artery and mitral calcification. Liver: Hepatomegaly. Diffuse fatty infiltration. Biliary/Gallbladder: Mild gallbladder distention. No bile duct dilation. Pancreas: No mass or duct dilation. Spleen: Normal. Adrenals:No mass. Kidneys: No suspicious mass, obstructing stone, or hydronephrosis. GI tract: Mild distal esophageal and gastric wall edema. No small or large bowel dilation. Segmental wall edema in the terminal ileum. Ileocolic anastomosis. Cecal anastomosis. Rectal wall edema with ec centric wall thickening, perirectal stranding, and loss of the perirectal fat planes. Extraluminal ga s collection and enhancement in the left rectal fat, extending into the left perineum. Status post ap pendectomy. Mesentery/Peritoneum: No ascites, mass, or free air. Subcentimeter lymph nodes in the deep pelvic fat . Retroperitoneum: No mass. Atherosclerotic abdominal aortic and/or arterial calcifications. Pelvis: Pelvic organs are within normal limits. Soft Tissues: Soft tissues and body wall unremarkable. Bones: No acute osseous finding. IMPRESSION: Mild esophagitis/gastritis. Hepatomegaly with steatosis. Mild gallbladder hydrops without inflammatory changes or stones, possibly secondary to fasting. Corre late with symptoms of right upper quadrant pain and biliary labs. Terminal ileitis. Proctitis, with eccentric rectal wall thickening and possible perirectal abscess or fistula in the le ft perirectal fat/perineum, may be secondary to neoplastic change or inflammatory bowel disease. Reviewed, dictated and finalized at location K. IMPRESSION: Mild esophagitis/gastritis. Hepatomegaly with steatosis. Mild gallbladder hydrops without inflammatory changes or stones, possibly secon ashutosh to fasting. Correlate with symptoms of right upper quadrant pain and bilia ry labs. Terminal ileitis. Proctitis, with eccentric rectal wall thickening and possible perirectal absces s or fistula in the left perirectal fat/perineum, may be secondary to neoplasti c change or inflammatory bowel disease.
--- NOTE | ~2024-01-02 | XR_ITS ---
EXAMINATION: XR abdomen/kub 1V DATE: 01/05/2024 15:24 INDICATION: Abdominal pain. TECHNIQUE: A supine view of the abdomen on 2 radiographs was obtained. COMPARISON: CT abdomen and pelvis 01/02/2024 FINDINGS: There are no dilated loops of bowel. There is a large volume of stool in the colon. IMPRESSION: 1. Nonobstructive bowel gas pattern. Reviewed, dictated and finalized at location A.
[2024-01-02 17:44] VITALS: BP 148/98; PULSE 112; RESP 22; TEMP 36.9; O2SAT 99
[2024-01-02 19:45] VITALS: BP 139/80; PULSE 102; RESP 18; TEMP 36.3; O2SAT 100
[2024-01-02 19:50] LABS: Basophils Absolute Auto 0.1 K/mm3 (0.0-0.1); Basophils Percent Auto 0.8 % (0.2-1.2); Eosinophils Absolute Auto 0.2 K/mm3 (0-0.3); Eosinophils Percent Auto 1.8 % (0-4.4); Hemoglobin 15.2 g/dL (12.0-15.0); Immature Granulocyte Absolute 0.05 K/mm3 (0.00-0.031); Immature Granulocyte Percent A 0.4 % (0-0.5); Immature Platelet Fraction Pct 1.8 % (0.9-11.2); Lymphocytes Percent Auto 22.4 % (18.3-44.2); Mean Corpuscular Volume 96.8 fl (80-100); Mean Platelet Volume 8.7 fl (7.4-10.4); Monocytes Absolute Auto 0.8 K/mm3 (0.1-0.6); Monocytes Percent Auto 6.2 % (2.6-8.5); Neutrophils Absolute Auto 8.6 K/mm3 (1.3-6.7); Neutrophils Percent Auto 68.4 % (45.5-73.1); Platelet Count Result 478 k/mm3 (150-375); Red Blood Count 5.06 M/mm3 (4.2-5.4); Red Cell Distribution Width 14.2 % (11.5-14.5); White Blood Count 12.5 K/mm3 (4.5-10.0)
[2024-01-02 20:02] LABS: Platelet Estimate Increased (Adequate); Schistocytes None Seen
--- NOTE | 2024-01-02 21:37 | ED.ABDPAIN ---
HPI - Abdominal Pain General Chief Complaint: Abdominal Pain Stated Complaint: Richohns flare up Time Seen by Provider: 01/02/24 21:35 History of Present Illness HPI narrative: Patient is a 63-year-old female who presents to the emergency department this evening complaining of right-sided abdominal pain, nausea and vomiting. Patient states that she has been having the symptoms since November and has not been able to keep anything down which is preventing her from being able to take her daily medications. Patient admits to history of Crohn's disease and states that Dr. Turner recently sent a script for steroids to her pharmacy Tuesday of last week, however, patient has not been able to pick it up since her insurance has still not approved it. Patient does follow-up with Dr. Turner regarding her Crohn's disease. Patient admits the pain is worse in the right lower quadrant. She denies any fevers or chills at home, any melena or hematochezia, chest pain or shortness of breath. There are no other modifying, alleviating, or precipitating factors. Related Data Allergies Allergy/AdvReac Type Severity Reaction Status Date / Time cyclobenzaprine Allergy Mild HYPERACTIVI Verified 01/02/24 17:37 TY infliximab [From Remicade] Allergy Mild Hives Verified 01/02/24 17:37 latex Allergy Mild Rash Verified 01/02/24 17:37 lisinopril Allergy Mild cough Verified 01/02/24 17:37 contact metal agent Allergy Hives Verified 01/02/24 17:37 hydrocodone AdvReac Mild N/V Verified 01/02/24 17:37 clindamycin AdvReac Unknown other Verified 01/02/24 17:37 hydromorphone [From Dilaudid] AdvReac Vomiting Verified 01/02/24 17:37 oxycodone AdvReac Nausea and Verified 01/02/24 17:37 Vomiting palm oil Allergy Intermediate Hives Uncoded 01/02/24 17:37 COCONUT Allergy Mild Hives / Uncoded 12/01/23 14:11 Red Face Delodium AdvReac Mild Vomiting Uncoded 12/01/23 14:11 Review of Systems Review of Systems: All systems are reviewed and are negative unless stated otherwise in the HPI. [facility] Past Medical History Medical History Allergies Arthritis Arthritis in Crohn's disease with complication BMI 39.0-39.9,adult Cellulitis Crohn's disease Degenerative joint disease Diarrhea Elevated glucose Fatigue Grieving Headache Hypertension Hypokalemia Incisional hernia without obstruction or gangrene Inflammatory arthritis Low back pain Nausea and vomiting Obstructive sleep apnea Osteopenia Pain, joint, multiple sites Skin lesion Tobacco abuse Umbilical hernia Yeast infection Surgical History Surgical History History of ankle surgery ORIF right ankle fracture. History of bowel resection History of colonoscopy History of fusion of cervical spine History of hernia repair History of right hemicolectomy (2019) History of tubal ligation Family History Family History Father Diabetes mellitus Malignant neoplasm of prostate Hypertension Family history of diabetes mellitus in first degree relative Family history of malignant neoplasm of urinary bladder Family history of heart disease in male family member before age 55 Mother Diabetes mellitus Family history of kidney disease Patient's mother is Other Family history of cardiovascular disease Social History Social History Social History: Surrogate medical decision maker: Reynold Colbert, spouse. Code status: Full code. Smoking packs per day: 0.5 Smoking cigarettes per day: 10.0 Years smoked: 50 Smoking pack-years: 25.00 Smoking status: Current every day smoker Tobacco type: cigarettes Second hand tobacco smoke exposure: No Alcohol intake: current Drinks per week: 1 Substance use: never Substance use type: does not use
[2024-01-02] MEDS: ONDANSETRON INJ 4 MG/2 ML VIAL IV PUSH (22:47)
[2024-01-02] MEDS: SODIUM CHLORIDE 0.9% IV 1,000 ML 150 ML IV CONT (22:47)
[2024-01-02] MEDS: MORPHINE SULFATE (*CRX) 4 MG/ML INJ IV PUSH (22:47)
[2024-01-02 22:57] LABS: Alanine Aminotransferase 39 U/L (6-35); Albumin Level 3.4 g/dL (3.5-5.1); Alkaline Phosphatase 172 U/L (38-126); Anion Gap 7 mmol/L (4-12); Aspartate Amino Transferase 53 U/L (14-36); Bilirubin,Total 0.5 mg/dL (0.2-1.3); Blood Urea Nitrogen 9 mg/dL (7-17); Calcium 8.9 mg/dL (8.4-10.2); Carbon Dioxide 22 mmol/L (22-30); Chloride 105 mmol/L (98-107); Estimated CRCL calculation 76 ml/min; Estimated Glomerular Filt Rate > 60; Glucose 104 mg/dL (65-110); Lipase 41 U/L (23-300); Potassium 3.8 mmol/L (3.4-5.0); Sodium 134 mmol/L (137-145)
[2024-01-03] MEDS: methylPREDNISolone SOD SUCC 125 MG VIAL 100 MG IV PUSH (02:00)
[2024-01-03 02:01] VITALS: BP 115/67; PULSE 102; RESP 15; O2SAT 96
[2024-01-03] MEDS: MORPHINE SULFATE (*CRX) 2 MG/ML INJ IV PUSH ×3 (02:17→20:59)
[2024-01-03] MEDS: ONDANSETRON INJ 4 MG/2 ML VIAL IV PUSH ×3 (02:46→21:02)
[2024-01-03 03:39] VITALS: BP 133/76; PULSE 105; RESP 18; TEMP 36.3; O2SAT 97
[2024-01-03 03:40] VITALS: BMI 34.7
--- NOTE | 2024-01-03 04:03 | ADMGEN ---
This patient, Saira Colbert, was admitted to [facility] Surg Room 301-01 at 03:20. Patient/family oriented to hospital policies and general routines including ID bracelet, bed and alarms, visiting hours, pain management, procedures, bathroom and other care routines, personal items, smoking policy, room service/diet, and visiting hours. Information on how to activate the Rapid Response Team has been discussed. Patient/Family are encouraged to report perceived risks to care and to ask questions if they do not understand what they are told or what they should do.
[2024-01-03] MEDS: DICYCLOMINE HCL 10 MG CAPSULE PO (09:06)
[2024-01-03] MEDS: buPROPion HCL XL (24 HR) 150 MG TABCR PO (09:06)
[2024-01-03] MEDS: DULoxetine HCL 60 MG CAPSULE.DR PO ×2 (09:07→20:42)
--- NOTE | 2024-01-03 09:48 | PM.IMHP ---
H&P: HPI History of Present Illness Date/Time: 01/03/24 16:48 Chief Complaint: Nausea vomiting abdominal pain, Crohn's flare Narrative: This is a 63-year-old female patient with history of Crohn's disease with previous bowel resection who is admitted to the hospital for prolonged nausea vomiting abdominal pain. Found to ileitis and proctitis CT imaging. Gastroenterology was consulted and patient was admitted for symptomatic care with IV steroids antiemetics pain medication. Patient reports for previous episodes Clostridium difficile requiring 20 days oral treatment each time. Patient reports that she has not been able keep food for several days and even started having trouble keeping liquids down. Patient reports she has been on several biologics that have not helped her Crohn's. Patient reports that since admission she has been receiving IV steroids IV antiemetics IV morphine with improvement in all of her symptoms. She was able to drink fluids today and eat breakfast and lunch. Review of Systems Review of Systems: All systems reviewed & are unremarkable except as noted in HPI and below PMFSH Past Medical History Medical History Allergies Arthritis Arthritis in Crohn's disease with complication BMI 39.0-39.9,adult Cellulitis Crohn's disease Degenerative joint disease Diarrhea Elevated glucose Fatigue Grieving Headache Hypertension Hypokalemia Incisional hernia without obstruction or gangrene Inflammatory arthritis Low back pain Nausea and vomiting Obstructive sleep apnea Osteopenia Pain, joint, multiple sites Skin lesion Tobacco abuse Umbilical hernia Yeast infection Surgical History Surgical History History of ankle surgery ORIF right ankle fracture. History of bowel resection History of colonoscopy History of fusion of cervical spine History of hernia repair History of right hemicolectomy (2019) History of tubal ligation Family History Family History Father Diabetes mellitus Malignant neoplasm of prostate Hypertension Family history of diabetes mellitus in first degree relative Family history of malignant neoplasm of urinary bladder Family history of heart disease in male family member before age 55 Mother Diabetes mellitus Family history of kidney disease Patient's mother is Other Family history of cardiovascular disease Social History Social History Social History: Surrogate medical decision maker: Reynold Colbert, spouse. Code status: Full code. Smoking packs per day: 0.5 Smoking cigarettes per day: 10.0 Years smoked: 50 Smoking pack-years: 25.00 Smoking status: Former smoker Second hand tobacco smoke exposure: No Smoking end date: 08/25/23 Alcohol intake: current Drinks per week: 1 Substance use: never Substance use type: does not use Do You Feel Safe in your Home?: Yes Lack of Transportation: No Lack of Food: Never True Current Housing: I Have Housing Concerned About Future Housing: No Difficulty Paying Gas/Electric Bills: No Difficulty Paying for Meds: No Currently Unemployed: No Education: Associate Degree Difficulty w/ Childcare or Family Care: No Living arrangements: with family Occupation/Education: retired Gender identity (if verbalized by the patient): Female Sexual Orientation (if Verbalized by the Patient): Straight or Heterosexual Spiritual care concerns: No Agree to blood products: Yes Meds Home Medications and Allergies Home Medications Medication Instructions Recorded Confirmed Type duloxetine 60 mg capsule,delayed 60 mg PO BID #60 caps 11/26/22 01/03/24 Rx release adalimumab 40 mg/0.4 mL See Rx Instructions subcut 12/24/22 01/03/24 Rx subcutaneo
[2024-01-03 14:00] VITALS: BP 153/70; PULSE 98; RESP 18; TEMP 35.8; O2SAT 100
--- NOTE | 2024-01-03 14:48 | WPDGICN ---
Assessment and Plan Assessment and plan (1) Crohn's disease: Code(s): K50.90 - Crohn's disease, unspecified, without complications Status: Acute Assessment and Plan: on iv steroids, she is on humira at home plan is to start skyrizi once insurance approve it liquid diet and advance as tolerated (2) Abdominal pain: Code(s): R10.9 - Unspecified abdominal pain Status: Acute Assessment and Plan: better after medical treatment (3) Nausea & vomiting: Code(s): R11.2 - Nausea with vomiting, unspecified Status: Acute (4) Crohn's ileitis: Code(s): K50.00 - Crohn's disease of small intestine without complications Status: Acute GI Consult Note Consult date/time: 01/03/24 14:48 Reason for consult: crohn's, abdominal pain HPI: Saira Colbert is a 63 year old female who is our clinic patient. She was originally?diagnosed with Crohn disease in 2012- colonoscopy, terminal ileitis was identified, and confirmed to be Crohn disease. 2019 was in hospital with SBO, CAT scan and small bowel series confirmed terminal ileal stricturing, underwent Hand-assisted laparoscopic ileocolic resection with [id number] ileocolic anastomosis, bx showed active ileitis with crohn's. Pentasa did not work. 12/2020 egd that was normal and colonoscopy showed disease in ileum (colon bx normal, also found ulcer near anal area), repeat colonoscopy 09/2023 similar findings involving TI, normal rectal biopsies. She was on Stelara for approximately 1 year no changes and remicade but did not tolerate. Currently has been on humira since 12/2022, she is having similar issues with abdominal pain after eating that is severe, treated in the past with c diff x3. She came to ER with ongoing nausea and vomiting, she called our office few days ago and prescribed budesonide but could not get it because was waiting on insurance approva, also abdominal discomfort. ER given iv steroids, feeling better. We also submitted paperwork to start skyrizi but still waiting from her insurance. CT scan reviewed, Mild gallbladder hydrops without inflammatory changes or stones, possibly secondary to fasting. Correlate with symptoms of right upper quadrant pain and biliary labs. Terminal ileitis. Proctitis, with eccentric rectal wall thickening and possible perirectal abscess or fistula in the left perirectal fat/perineum,? Review of Systems Review of Systems: All systems reviewed & are unremarkable except as noted in HPI and below PMFSH Past Medical History Medical History Allergies Arthritis Arthritis in Crohn's disease with complication BMI 39.0-39.9,adult Cellulitis Crohn's disease Degenerative joint disease Diarrhea Elevated glucose Fatigue Grieving Headache Hypertension Hypokalemia Incisional hernia without obstruction or gangrene Inflammatory arthritis Low back pain Nausea and vomiting Obstructive sleep apnea Osteopenia Pain, joint, multiple sites Skin lesion Tobacco abuse Umbilical hernia Yeast infection Surgical History Surgical History History of ankle surgery ORIF right ankle fracture. History of bowel resection History of colonoscopy History of fusion of cervical spine History of hernia repair History of right hemicolectomy (2019) History of tubal ligation Family History Family History Father Diabetes mellitus Malignant neoplasm of prostate Hypertension Family history of diabetes mellitus in first degree relative Family history of malignant neoplasm of urinary bladder Family history of heart disease in male family member before age 55 Mother Diabetes mellitus Family history of kidney disease Patient's mother is Other Family history of cardiovascular disease Social History Social History (Reviewed 01/02
[2024-01-03] MEDS: OFLOXACIN 0.3% OPHTH SOLN 5 ML BTL 1 DROP EACH EYE (20:52)
[2024-01-03] MEDS: methylPREDNISolone SOD SUCC 125 MG VIAL 40 MG IV PUSH (20:55)
[2024-01-03 22:00] VITALS: BP 123/72; PULSE 98; RESP 16; TEMP 36.2; O2SAT 97
[2024-01-04 05:00] VITALS: BP 117/60; PULSE 103; RESP 18; TEMP 36.8; O2SAT 99
[2024-01-04] MEDS: methylPREDNISolone SOD SUCC 40 MG VIAL IV PUSH ×3 (06:27→20:47)
[2024-01-04 07:06] LABS: Basophils Percent Auto 0.2 % (0.2-1.2); Hematocrit 38.4 % (37.0-47.0); Hemoglobin 12.2 g/dL (12.0-15.0); Immature Granulocyte Absolute 0.06 K/mm3 (0.00-0.031); Immature Granulocyte Percent A 0.5 % (0-0.5); Lymphocytes Absolute Auto 1.14 K/mm3 (0.9-3.2); Lymphocytes Percent Auto 9.6 % (18.3-44.2); Mean Corpuscular HGB Conc 31.8 g/dl (32-36); Mean Corpuscular Hemoglobin 30.3 pg (26-34); Mean Corpuscular Volume 95.3 fl (80-100); Mean Platelet Volume 8.5 fl (7.4-10.4); Monocytes Absolute Auto 0.6 K/mm3 (0.1-0.6); Monocytes Percent Auto 4.6 % (2.6-8.5); Neutrophils Absolute Auto 10.2 K/mm3 (1.3-6.7); Neutrophils Percent Auto 85.1 % (45.5-73.1); Platelet Count Result 453 k/mm3 (150-375); Red Blood Count 4.03 M/mm3 (4.2-5.4); Red Cell Distribution Width 13.9 % (11.5-14.5); White Blood Count 11.9 K/mm3 (4.5-10.0)
[2024-01-04 07:15] LABS: Alanine Aminotransferase 31 U/L (6-35); Albumin Level 3.2 g/dL (3.5-5.1); Alkaline Phosphatase 145 U/L (38-126); Anion Gap 3 mmol/L (4-12); Aspartate Amino Transferase 32 U/L (14-36); Bilirubin,Total 0.4 mg/dL (0.2-1.3); Blood Urea Nitrogen 14 mg/dL (7-17); Calcium 8.7 mg/dL (8.4-10.2); Carbon Dioxide 27 mmol/L (22-30); Chloride 102 mmol/L (98-107); Estimated CRCL calculation 65 ml/min; Estimated Glomerular Filt Rate > 60; Glucose 203 mg/dL (65-110); Magnesium 2.2 mg/dL (1.6-2.3); Potassium 4.4 mmol/L (3.4-5.0); Sodium 132 mmol/L (137-145)
--- NOTE | 2024-01-04 08:03 | PM.IMPN ---
Progress Note: A&P Assessment and Plan (1) Crohn's disease: Code(s): K50.90 - Crohn's disease, unspecified, without complications Status: Acute Assessment and Plan: Recurrent Crohn's flare white blood cell count 12.5. Patient reports only 2 movements today usually about 20 per day IV steroids ordered q.8 hours by gastroenterology Patient is tolerating diet with the used antiemetics and IV morphine. Able to take medications today which is an improvement 01/03: Slowly improving. She was able tolerate breakfast without immediate need of pain medication or Zofran. White blood cell count 11.9 7 bowel movements today Regular diet (2) Nausea & vomiting: Code(s): R11.2 - Nausea with vomiting, unspecified Status: Acute Assessment and Plan: See above (3) Benign essential HTN: Code(s): I10 - Essential (primary) hypertension Status: Acute Assessment and Plan: Stable blood pressures he, patient not on anti hypertensives at home 01/03: Blood pressures reviewed. SBP ranging 117-140. Plan Continue IV steroids pain medicine anti emetics Avoid pharmacologic DVT prophylaxis due to risk of bleeding in Crohn's flare Patient is ambulatory defer SCD's at this time. Resume home Cymbalta and Wellbutrin. Patient is still grieving the loss of her daughter who was hit by a train in May Subjective Date/time seen: 01/04/24 08:03 Interval history: HPI obtained from the chart, This is a 63-year-old female patient with history of Crohn's disease with previous bowel resection who is admitted to the hospital for prolonged nausea vomiting abdominal pain.? Found to ileitis and proctitis CT imaging.? Gastroenterology was consulted and patient was admitted for symptomatic care with IV steroids antiemetics pain medication.?Please see the remainder of the H&P for further details. Interval history: 01/03: Patient is seen in bed resting and in no acute distress. She says that her symptoms are improved today after starting steroids. She has had approximately 7 bowel movements. Her right upper quadrant and mid epigastric pain have improved. She was able to tolerate breakfast without immediately needing pain medication. Review of Systems Review of Systems: All systems reviewed & are unremarkable except as noted in HPI and below Exam Narrative: General: well appearing, well developed, well nourished, appears stated age. HEENT: normocephalic, atraumatic. Mucous membranes moist. EOMI, PERRLA, bilateral sclera anicteric, no conjunctival injection. Neck supple without JVD, lymphadenopathy, or bruit. Respiratory: clear to auscultation bilaterally. No rales/rhonic/wheezes. Cardiovascular: Regular rate and rhythm, normal S1-S2 upon auscultation. No murmurs, rubs, or clicks. PMI is nondisplaced, capillary re-fill less than 3 second. Abdomen: Soft, round, no pulsatile masses, non-distended and thanks mildly tender to right upper quadrant and mid epigastrium. No rebound, no guarding. No CVA tenderness, no hepatosplenomegaly. Bowel sounds present to all four quadrants. No high pitch or tinkling sounds, resonant to percussion. Extremities: No cyanosis, clubbing, or edema present. Pulses are palpable 2/2. Active ROM to all four extremities. Neuro: Alert and orientated x 4. PERRLA. Cranial nerves 2-12 intact without focal deficit. Skin: Warm, dry, and intact, without rash, erythema, or lesion. Lines: Incisions: Psych: pleasant, cooperative, normal speech, normal affect, no hallucinations, no dysarthria Objective Data Vital Signs Vital Signs: Vital Signs - 24 hr 01/03/24 14:00 01/03/24 22:00 01/03/24 20:00 Temperature 96.4 F L 97.2 F L Pulse Rate 98 98 Respiratory Rate 18 16 Blood Pressure 153/70 H 123/72 Pulse Oximetry 100 97 Oxygen Delivery Room Air 01/04/24 05:00 Temperature 98.3 F Pulse Rate 103 H Respiratory Rate 18 Blood Pressure 117/60 Pulse Oximetry 99 Oxygen Del
[2024-01-04] MEDS: buPROPion HCL XL (24 HR) 150 MG TABCR PO (08:56)
[2024-01-04] MEDS: DULoxetine HCL 60 MG CAPSULE.DR PO ×2 (08:56→20:47)
[2024-01-04] MEDS: OFLOXACIN 0.3% OPHTH SOLN 5 ML BTL 1 DROP EACH EYE ×4 (08:57→20:47)
--- NOTE | 2024-01-04 10:51 | PCRCNOTE ---
Pt stated that she does not have a home CPAP unit and never has.
[2024-01-04 13:49] VITALS: BP 145/65; PULSE 100; RESP 18; TEMP 35.2; O2SAT 96
[2024-01-04] MEDS: ONDANSETRON INJ 4 MG/2 ML VIAL IV PUSH (15:07)
[2024-01-04] MEDS: MORPHINE SULFATE (*CRX) 2 MG/ML INJ IV PUSH (15:33)
--- NOTE | 2024-01-04 17:56 | WPDGIPROGNO ---
Progress Note: A&P Assessment and Plan (1) Nausea & vomiting: Code(s): R11.2 - Nausea with vomiting, unspecified Status: Acute Assessment and Plan: continue with supportive care diet as tolerated (2) Crohn's disease: Code(s): K50.90 - Crohn's disease, unspecified, without complications Status: Acute Assessment and Plan: on iv steroids at home on humira but still symptomatic, plan is to start skyrizi as soon as her insurance allows (she failed other biologics) (3) Abdominal pain: Code(s): R10.9 - Unspecified abdominal pain Status: Acute Assessment and Plan: on meds (4) Abnormal CT scan: Code(s): R93.89 - Abnormal findings on diagnostic imaging of other specified body structures Status: Acute (5) Acute proctitis: Code(s): K62.89 - Other specified diseases of anus and rectum Status: Acute Subjective Date/time seen: 01/04/24 17:56 Interval history: she had loose stools yesterday as baseline, she was doing better this morning but after lunch with more nausea and abdominal pain Review of Systems Review of Systems: All systems reviewed & are unremarkable except as noted in HPI and below Exam Const: General: comfortable and no acute distress HENMT: Face/Nose/Sinus: Normal nares present Eyes: General: appearance normal, both eyes and all related structures Neck: Neck: supple Resp: Auscultation: clear to auscultation bilaterally Cardio: Rate: regular rate Rhythm: regular rhythm GI: Inspection: non-distended GI Palp: Yes Soft to palpation and Yes Tenderness to palpation present (GI) (ttp in right abdomen, no rebound) Skin: General skin exam: normal color Neuro: Speech: normal speech Motor exam (neuro): 5/5 motor strength present throughout Extrem: General: normal to inspection Psych: Mental Status: mental status grossly normal Objective Data Vital Signs Vital Signs: Vital Signs - 24 hr 01/03/24 22:00 01/03/24 20:00 01/04/24 05:00 Temperature 97.2 F L 98.3 F Pulse Rate 98 103 H Respiratory Rate 16 18 Blood Pressure 123/72 117/60 Pulse Oximetry 97 99 Oxygen Delivery Room Air 01/04/24 13:49 Temperature 95.4 F L Pulse Rate 100 Respiratory Rate 18 Blood Pressure 145/65 H Pulse Oximetry 96 Oxygen Delivery Intake/Output Intake/Output: Intake & Output 01/01/24 01/02/24 01/03/24 01/04/24 23:59 23:59 23:59 23:59 Intake Total 1796 1590 Balance 1796 1590 Meds/Results Medications: Active Medications Generic Name Dose Route Start Last Admin Trade Name Freq PRN Reason Stop Dose Admin Bupropion HCl 150 mg 01/03/24 09:00 01/04/24 08:56 Bupropion Hcl Xl (24 Hr) 150 Mg Tabcr PO 150 mg QAM KARAN Administration Dicyclomine HCl 10 mg 01/03/24 08:03 01/03/24 09:06 Dicyclomine Hcl 10 Mg Capsule PO 10 mg QID PRN Administration abdominal pain Duloxetine HCl 60 mg 01/03/24 09:00 01/04/24 08:56 Duloxetine Hcl 60 Mg Capsule.Dr PO 60 mg Q12HR KARAN Administration Methylprednisolone Sodium Succinate 40 mg 01/04/24 06:00 01/04/24 13:13 Methylprednisolone Sod Succ 40 Mg Vial IV PUSH 40 mg Q8HR KARAN Administration Morphine Sulfate 2 mg 01/03/24 02:17 01/04/24 15:33 Morphine Sulfate (*Crx) 2 Mg/Ml Inj IV PUSH 2 mg Q4H PRN Administration Abdominal Cramping Ofloxacin 1 drop 01/03/24 21:00 01/04/24 16:14 Ofloxacin 0.3% Ophth Soln 5 Ml Btl EACH EYE 1 drop QID KARAN Administration Ondansetron HCl 4 mg 01/03/24 02:17 01/04/24 15:07 Ondansetron Inj 4 Mg/2 Ml Vial IV PUSH 4 mg Q8H PRN Administration Nausea Radiology Results: ITS Impressions Abdomen/Pelvis CT 01/03/24 00:02 IMPRESSION: Mild esophagitis/gastritis. Hepatomegaly with steatosis. Mild gallbladder hydrops without inflammatory changes or stones, possibly secondary to fasting. Correlate with symptoms of right upper quadrant pain and biliary labs
[2024-01-04 22:00] VITALS: BP 137/70; PULSE 98; RESP 18; TEMP 36.7; O2SAT 97
[2024-01-05 06:00] VITALS: BP 121/67; PULSE 95; RESP 18; TEMP 36.5; O2SAT 97
[2024-01-05] MEDS: methylPREDNISolone SOD SUCC 40 MG VIAL IV PUSH ×3 (06:19→21:46)
[2024-01-05 06:43] LABS: Basophils Percent Auto 0.2 % (0.2-1.2); Hematocrit 39.6 % (37.0-47.0); Hemoglobin 12.7 g/dL (12.0-15.0); Immature Granulocyte Absolute 0.16 K/mm3 (0.00-0.031); Immature Granulocyte Percent A 1.2 % (0-0.5); Lymphocytes Absolute Auto 1.21 K/mm3 (0.9-3.2); Lymphocytes Percent Auto 8.9 % (18.3-44.2); Mean Corpuscular HGB Conc 32.1 g/dl (32-36); Mean Corpuscular Hemoglobin 30.2 pg (26-34); Mean Corpuscular Volume 94.3 fl (80-100); Mean Platelet Volume 8.5 fl (7.4-10.4); Monocytes Absolute Auto 0.5 K/mm3 (0.1-0.6); Monocytes Percent Auto 3.9 % (2.6-8.5); Neutrophils Absolute Auto 11.7 K/mm3 (1.3-6.7); Neutrophils Percent Auto 85.8 % (45.5-73.1); Platelet Count Result 436 k/mm3 (150-375); White Blood Count 13.6 K/mm3 (4.5-10.0)
[2024-01-05 06:57] LABS: Alanine Aminotransferase 30 U/L (6-35); Albumin Level 3.5 g/dL (3.5-5.1); Alkaline Phosphatase 166 U/L (38-126); Anion Gap 7 mmol/L (4-12); Aspartate Amino Transferase 26 U/L (14-36); Bilirubin,Total 0.3 mg/dL (0.2-1.3); Blood Urea Nitrogen 15 mg/dL (7-17); Calcium 9.3 mg/dL (8.4-10.2); Carbon Dioxide 25 mmol/L (22-30); Chloride 100 mmol/L (98-107); Estimated CRCL calculation 65 ml/min; Estimated Glomerular Filt Rate > 60; Glucose 237 mg/dL (65-110); Magnesium 2.4 mg/dL (1.6-2.3); Potassium 4.7 mmol/L (3.4-5.0); Sodium 132 mmol/L (137-145)
[2024-01-05] MEDS: OFLOXACIN 0.3% OPHTH SOLN 5 ML BTL 1 DROP EACH EYE ×4 (08:49→21:48)
[2024-01-05] MEDS: DULoxetine HCL 60 MG CAPSULE.DR PO ×2 (08:50→21:47)
[2024-01-05] MEDS: buPROPion HCL XL (24 HR) 150 MG TABCR PO (08:50)
--- NOTE | 2024-01-05 11:41 | PM.DS ---
DS: Admitting Diagnosis Discharge Date 01-04 Admitting Diagnosis Abdominal pain DS: Discharge Diagnosis Discharge Diagnosis (1) Crohn's disease: Code(s): K50.90 - Crohn's disease, unspecified, without complications Status: Acute Assessment and Plan: Recurrent Crohn's flare white blood cell count 12.5. Patient reports only 2 movements today usually about 20 per day IV steroids ordered q.8 hours by gastroenterology Patient is tolerating diet with the used antiemetics and IV morphine. Able to take medications today which is an improvement 01/03: Slowly improving. She was able tolerate breakfast without immediate need of pain medication or Zofran. White blood cell count 11.9 7 bowel movements today Regular diet (2) Nausea & vomiting: Code(s): R11.2 - Nausea with vomiting, unspecified Status: Acute Assessment and Plan: See above (3) Benign essential HTN: Code(s): I10 - Essential (primary) hypertension Status: Acute Assessment and Plan: Stable blood pressures he, patient not on anti hypertensives at home 01/03: Blood pressures reviewed. SBP ranging 117-140. Plan Continue IV steroids pain medicine anti emetics Avoid pharmacologic DVT prophylaxis due to risk of bleeding in Crohn's flare Patient is ambulatory defer SCD's at this time. Resume home Cymbalta and Wellbutrin. Patient is still grieving the loss of her daughter who was hit by a train in May DS: Summary Hospital Course Reason for hospitalization: Crohn's exacerbation Hospital Course: Interval history: HPI obtained from the chart, This is a 63-year-old female patient with history of Crohn's disease with previous bowel resection who is admitted to the hospital for prolonged nausea vomiting abdominal pain.? Found to ileitis and proctitis CT imaging.? Gastroenterology was consulted and patient was admitted for symptomatic care with IV steroids antiemetics pain medication.?Please see the remainder of the H&P for further details. Interval history: 01/03:? Patient is seen in bed resting and in no acute distress.? She says that her symptoms are improved today after starting steroids.? She has had approximately 7 bowel movements.? Her right upper quadrant and mid epigastric pain have improved.? She was able to tolerate breakfast without immediately needing pain medication. 01/04: Patient reports severe abdominal pain last night after having lunch and lasting for 3 hours. She states it felt like when she had a bowel obstruction in the past. Her pain is since resolved and she was able to tolerate breakfast. She states she is passing gas and she has had 1 small bowel movement this morning. Her bili she feels is still distended this morning. Will repeat a KUB just to make sure there is no concern for obstruction. Can add simethicone for gas. Waiting to see if GI is okay with her discharging today and anticipating steroids at discharge. 4/5: Doing well today. She tolerated both breakfast and lunch without pain or nausea. She has day 3 bowel movements. She is ready to discharge home. Status at Discharge Cognitive/behavioral status at discharge: A&O x4, pleasant Time Spent with Patient Time attestation: Total time spent providing and/or coordinating discharge services:42 Exam Narrative: General: well appearing, well developed, well nourished, appears stated age. HEENT: normocephalic, atraumatic. Mucous membranes moist. EOMI, PERRLA, bilateral sclera anicteric, no conjunctival injection. Neck supple without JVD, lymphadenopathy, or bruit. Respiratory: clear to auscultation bilaterally. No rales/rhonic/wheezes. Cardiovascular: Regular rate and rhythm, normal S1-S2 upon auscultation. No murmurs, rubs, or clicks. PMI is nondisplaced, capillary re-fill less than 3 second. Abdomen: Soft, round, no pulsatile masses, non-distended and thanks mildly tender to right upper quadrant and mid epigastrium. No rebound, no guarding.
[2024-01-05] MEDS: ONDANSETRON INJ 4 MG/2 ML VIAL IV PUSH ×2 (13:27→23:59)
[2024-01-05] MEDS: MORPHINE SULFATE (*CRX) 2 MG/ML INJ IV PUSH ×3 (13:28→23:53)
--- NOTE | 2024-01-05 13:49 | PM.IMPN ---
Progress Note: A&P Assessment and Plan (1) Crohn's disease: Code(s): K50.90 - Crohn's disease, unspecified, without complications Status: Acute Assessment and Plan: Recurrent Crohn's flare white blood cell count 12.5. Patient reports only 2 movements today usually about 20 per day IV steroids ordered q.8 hours by gastroenterology Patient is tolerating diet with the used antiemetics and IV morphine. Able to take medications today which is an improvement 01/03: Slowly improving. She was able tolerate breakfast without immediate need of pain medication or Zofran. White blood cell count 11.9 7 bowel movements today Regular diet 01/04: Had some abdominal pain last night with dinner. Will see how she does today with eating KUB ordered Continue pain medications, anti-emetics. (2) Nausea & vomiting: Code(s): R11.2 - Nausea with vomiting, unspecified Status: Acute Assessment and Plan: See above (3) Benign essential HTN: Code(s): I10 - Essential (primary) hypertension Status: Acute Assessment and Plan: Stable blood pressures he, patient not on anti hypertensives at home 01/03: Blood pressures reviewed. SBP ranging 117-140. Plan Continue IV steroids pain medicine anti emetics Avoid pharmacologic DVT prophylaxis due to risk of bleeding in Crohn's flare Patient is ambulatory defer SCD's at this time. Resume home Cymbalta and Wellbutrin. Patient is still grieving the loss of her daughter who was hit by a train in May Subjective Date/time seen: 01/05/24 13:49 Interval history: HPI obtained from the chart, This is a 63-year-old female patient with history of Crohn's disease with previous bowel resection who is admitted to the hospital for prolonged nausea vomiting abdominal pain.? Found to ileitis and proctitis CT imaging.? Gastroenterology was consulted and patient was admitted for symptomatic care with IV steroids antiemetics pain medication.?Please see the remainder of the H&P for further details. Interval history: 01/03: Patient is seen in bed resting and in no acute distress. She says that her symptoms are improved today after starting steroids. She has had approximately 7 bowel movements. Her right upper quadrant and mid epigastric pain have improved. She was able to tolerate breakfast without immediately needing pain medication. 01/04:? Patient reports severe abdominal pain last night after having lunch and lasting for 3 hours.? She states it felt like when she had a bowel obstruction in the past.? Her pain is since resolved and she was able to tolerate breakfast.? She states she is passing gas and she has had 1 small bowel movement this morning.? Her bili she feels is still distended this morning.? Will repeat a KUB just to make sure there is no concern for obstruction.? Can add simethicone for gas.? Review of Systems Review of Systems: All systems reviewed & are unremarkable except as noted in HPI and below Exam Narrative: General: well appearing, well developed, well nourished, appears stated age. HEENT: normocephalic, atraumatic. Mucous membranes moist. EOMI, PERRLA, bilateral sclera anicteric, no conjunctival injection. Neck supple without JVD, lymphadenopathy, or bruit. Respiratory: clear to auscultation bilaterally. No rales/rhonic/wheezes. Cardiovascular: Regular rate and rhythm, normal S1-S2 upon auscultation. No murmurs, rubs, or clicks. PMI is nondisplaced, capillary re-fill less than 3 second. Abdomen: Soft, round, no pulsatile masses, non-distended and thanks mildly tender to right upper quadrant and mid epigastrium. No rebound, no guarding. No CVA tenderness, no hepatosplenomegaly. Bowel sounds present to all four quadrants. No high pitch or tinkling sounds, resonant to percussion. Extremities: No cyanosis, clubbing, or edema present. Pulses are palpable 2/2. Active ROM to all four extremities. Neuro: Alert and orientated x 4. 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
[2024-01-05 14:40] VITALS: BP 145/81; PULSE 90; RESP 22; TEMP 36.7; O2SAT 98
[2024-01-05] MEDS: SIMETHICONE 80 MG TAB.CHEW PO ×2 (17:10→21:46)
--- NOTE | 2024-01-05 18:10 | WPDGIPROGNO ---
Progress Note: A&P Assessment and Plan (1) Nausea & vomiting: Code(s): R11.2 - Nausea with vomiting, unspecified Status: Acute Assessment and Plan: continue with supportive care diet as tolerated,still nausea kub without sbo antiemetics prn (2) Crohn's disease: Code(s): K50.90 - Crohn's disease, unspecified, without complications Status: Acute Assessment and Plan: on iv steroids- will need to transition to oral with slow taper at home on humira but still symptomatic, plan is to start skyrizi as soon as her insurance allows (she failed other biologics)- this will be done as outpatient (3) Abdominal pain: Code(s): R10.9 - Unspecified abdominal pain Status: Acute Assessment and Plan: on meds (4) Abnormal CT scan: Code(s): R93.89 - Abnormal findings on diagnostic imaging of other specified body structures Status: Acute (5) Acute proctitis: Code(s): K62.89 - Other specified diseases of anus and rectum Status: Acute Subjective Date/time seen: 01/05/24 18:10 Interval history: earlier today with n/v, KUB was ok she had 3-4 BM today Review of Systems Review of Systems: All systems reviewed & are unremarkable except as noted in HPI and below Exam Const: General: comfortable and no acute distress HENMT: Face/Nose/Sinus: Normal nares present Eyes: General: appearance normal, both eyes and all related structures Neck: Neck: supple Resp: Auscultation: clear to auscultation bilaterally Cardio: Rate: regular rate Rhythm: regular rhythm GI: Inspection: non-distended GI Palp: Yes Soft to palpation and Yes Tenderness to palpation present (GI) (ttp in right abdomen, no rebound) Skin: General skin exam: normal color Neuro: Speech: normal speech Motor exam (neuro): 5/5 motor strength present throughout Extrem: General: normal to inspection Psych: Mental Status: mental status grossly normal Objective Data Vital Signs Vital Signs: Vital Signs - 24 hr 01/04/24 22:00 01/04/24 20:00 01/05/24 06:00 Temperature 98.1 F 97.7 F Pulse Rate 98 95 Respiratory Rate 18 18 Blood Pressure 137/70 121/67 Pulse Oximetry 97 97 Oxygen Delivery Room Air 01/05/24 14:40 Temperature 98.1 F Pulse Rate 90 Respiratory Rate 22 H Blood Pressure 145/81 H Pulse Oximetry 98 Oxygen Delivery Intake/Output Intake/Output: Intake & Output 01/02/24 01/03/24 01/04/24 01/05/24 23:59 23:59 23:59 23:59 Intake Total 1796 1590 1999 Balance 1796 1590 1999 Meds/Results Medications: Active Medications Generic Name Dose Route Start Last Admin Trade Name Freq PRN Reason Stop Dose Admin Bupropion HCl 150 mg 01/03/24 09:00 01/05/24 08:50 Bupropion Hcl Xl (24 Hr) 150 Mg Tabcr PO 150 mg QAM KARAN Administration Dicyclomine HCl 10 mg 01/03/24 08:03 01/03/24 09:06 Dicyclomine Hcl 10 Mg Capsule PO 10 mg QID PRN Administration abdominal pain Duloxetine HCl 60 mg 01/03/24 09:00 01/05/24 08:50 Duloxetine Hcl 60 Mg Capsule.Dr PO 60 mg Q12HR KARAN Administration Methylprednisolone Sodium Succinate 40 mg 01/04/24 06:00 01/05/24 13:23 Methylprednisolone Sod Succ 40 Mg Vial IV PUSH 40 mg Q8HR KARAN Administration Morphine Sulfate 2 mg 01/03/24 02:17 01/05/24 13:28 Morphine Sulfate (*Crx) 2 Mg/Ml Inj IV PUSH 2 mg Q4H PRN Administration Abdominal Cramping Ofloxacin 1 drop 01/03/24 21:00 01/05/24 17:10 Ofloxacin 0.3% Ophth Soln 5 Ml Btl EACH EYE 1 drop QID KARAN Administration Ondansetron HCl 4 mg 01/03/24 02:17 01/05/24 13:27 Ondansetron Inj 4 Mg/2 Ml Vial IV PUSH 4 mg Q8H PRN Administration Nausea Simethicone 80 mg 01/05/24 17:00 01/05/24 17:10 Simethicone 80 Mg Tab.Chew PO 80 mg QID KARAN Administration Radiology Results: ITS Impressions Abdomen/Pelvis CT 01/03/24 00:02 IMPRESSION: Mild esophagitis/gastritis. Hepatomegaly wit
[2024-01-05 20:00] VITALS: O2SAT 97
[2024-01-05 20:43] VITALS: BP 153/90; PULSE 97; RESP 20; TEMP 36.5; O2SAT 97
[2024-01-06 05:33] VITALS: BP 129/85; PULSE 91; RESP 18; TEMP 36.6; O2SAT 97
[2024-01-06] MEDS: methylPREDNISolone SOD SUCC 40 MG VIAL IV PUSH ×2 (06:07→15:01)
[2024-01-06 07:45] LABS: Alanine Aminotransferase 33 U/L (6-35); Albumin Level 3.6 g/dL (3.5-5.1); Alkaline Phosphatase 147 U/L (38-126); Anion Gap 4 mmol/L (4-12); Aspartate Amino Transferase 29 U/L (14-36); Bilirubin,Total 0.4 mg/dL (0.2-1.3); Blood Urea Nitrogen 16 mg/dL (7-17); Calcium 9.2 mg/dL (8.4-10.2); Carbon Dioxide 29 mmol/L (22-30); Chloride 99 mmol/L (98-107); Estimated CRCL calculation 65 ml/min; Estimated Glomerular Filt Rate > 60; Glucose 178 mg/dL (65-110); Magnesium 2.3 mg/dL (1.6-2.3); Potassium 4.7 mmol/L (3.4-5.0); Sodium 132 mmol/L (137-145)
[2024-01-06 07:49] LABS: Basophils Absolute Auto 0.1 K/mm3 (0.0-0.1); Basophils Percent Auto 0.4 % (0.2-1.2); Hematocrit 42.2 % (37.0-47.0); Hemoglobin 13.4 g/dL (12.0-15.0); Immature Granulocyte Absolute 0.27 K/mm3 (0.00-0.031); Immature Granulocyte Percent A 1.9 % (0-0.5); Lymphocytes Absolute Auto 1.42 K/mm3 (0.9-3.2); Mean Corpuscular HGB Conc 31.8 g/dl (32-36); Mean Corpuscular Hemoglobin 30.2 pg (26-34); Mean Platelet Volume 8.3 fl (7.4-10.4); Monocytes Absolute Auto 0.6 K/mm3 (0.1-0.6); Monocytes Percent Auto 4.2 % (2.6-8.5); Neutrophils Absolute Auto 11.8 K/mm3 (1.3-6.7); Neutrophils Percent Auto 83.5 % (45.5-73.1); Platelet Count Result 457 k/mm3 (150-375); Red Blood Count 4.44 M/mm3 (4.2-5.4); Red Cell Distribution Width 13.7 % (11.5-14.5); White Blood Count 14.1 K/mm3 (4.5-10.0)
[2024-01-06] MEDS: DULoxetine HCL 60 MG CAPSULE.DR PO (09:19)
[2024-01-06] MEDS: buPROPion HCL XL (24 HR) 150 MG TABCR PO (09:20)
[2024-01-06] MEDS: OFLOXACIN 0.3% OPHTH SOLN 5 ML BTL 1 DROP EACH EYE ×2 (09:20→12:15)
[2024-01-06] MEDS: SIMETHICONE 80 MG TAB.CHEW PO ×2 (09:20→12:14)
--- NOTE | 2024-01-06 09:44 | P.PNIM_ITS ---
Progress Note: A&P Assessment and Plan (1) Crohn's disease: Code(s): K50.90 - Crohn's disease, unspecified, without complications Status: Acute Assessment and Plan: Recurrent Crohn's flare white blood cell count 12.5. Patient reports only 2 movements today usually about 20 per day IV steroids ordered q.8 hours by gastroenterology Patient is tolerating diet with the used antiemetics and IV morphine. Able to take medications today which is an improvement 01/03: * Slowly improving. She was able tolerate breakfast without immediate need of pain medication or Zofran. * White blood cell count 11.9 * 7 bowel movements today * Regular diet 01/04: * Had some abdominal pain last night with dinner. * Will see how she does today with eating * KUB ordered * Continue pain medications, anti-emetics. 01/05: * (2) Nausea & vomiting: Code(s): R11.2 - Nausea with vomiting, unspecified Status: Acute Assessment and Plan: See above (3) Benign essential HTN: Code(s): I10 - Essential (primary) hypertension Status: Acute Assessment and Plan: Stable blood pressures he, patient not on anti hypertensives at home 01/03: Blood pressures reviewed. SBP ranging 117-140. Plan Continue IV steroids pain medicine anti emetics Avoid pharmacologic DVT prophylaxis due to risk of bleeding in Crohn's flare Patient is ambulatory defer SCD's at this time. Resume home Cymbalta and Wellbutrin. Patient is still grieving the loss of her daughter who was hit by a train in May Subjective Date/time seen: 01/06/24 09:44 Interval history: HPI obtained from the chart, This is a 63-year-old female patient with history of Crohn's disease with previous bowel resection who is admitted to the hospital for prolonged nausea vomiting abdominal pain.? Found to ileitis and proctitis CT imaging.? Gastroenterology was consulted and patient was admitted for symptomatic care with IV steroids antiemetics pain medication.?Please see the remainder of the H&P for further details. Interval history: 01/03: Patient is seen in bed resting and in no acute distress. She says that her symptoms are improved today after starting steroids. She has had approximately 7 bowel movements. Her right upper quadrant and mid epigastric pain have improved. She was able to tolerate breakfast without immediately needing pain medication. 01/04:? Patient reports severe abdominal pain last night after having lunch and lasting for 3 hours.? She states it felt like when she had a bowel obstruction in the past.? Her pain is since resolved and she was able to tolerate breakf ast.? She states she is passing gas and she has had 1 small bowel movement this morning.? Her bili she feels is still distended this morning.? Will repeat a KUB just to make sure there is no concern for obstruction.? Can add simethicone for gas.? Review of Systems Review of Systems: All systems reviewed & are unremarkable except as noted in HPI and below Exam Narrative: General: well appearing, well developed, well nourished, appears stated age. HEENT: normocephalic, atraumatic. Mucous membranes moist. EOMI, PERRLA, bilateral sclera anicteric, no conjunctival injection. Neck supple without JVD, lymphadenopathy, or bruit. Respiratory: clear to auscultation bilaterally. No rales/rhonic/wheezes. Cardiovascular: Regular rate and rhythm, normal S1-S2 upon auscultation. No murmurs, rubs, or clicks. PMI is nondisplaced, capillary re-fill less than 3 second. Abdomen: Soft, round, no pulsatile masses,
[2024-01-06 13:48] VITALS: BP 148/74; PULSE 90; RESP 16; TEMP 35.6; O2SAT 98
== END 2024-01-06 15:25 | disposition home or self-care (01) ==
LOC: ANHED 01-03 01:42 → ANH3MEDSUR 01-04 10:39
PROVIDERS: Nurse Practitioner; Student in an Organized Health Care Education/Training Program; Admitting Provider Internal Medicine; Emergency Provider Emergency Medicine; PCP Nurse Practitioner Family; Visit Provider Family Medicine
DX: K50.00 Crohn's disease of small intestine without complications (principal); K62.89 Other specified diseases of anus and rectum; R11.2 Nausea with vomiting, unspecified; I10 Essential (primary) hypertension; G47.33 Obstructive sleep apnea (adult) (pediatric); Z98.1 Arthrodesis status; Z90.49 Acquired absence of other specified parts of digestive tract; Z79.620 Long term (current) use of immunosuppressive biologic; Z87.891 Personal history of nicotine dependence
CPT/HCPCS: 36415; 74018; 74177; 80053; 83690; 83735; 85025; 85055; 96374; 96375; 96376; 99285; A9270; G0378; G0379; J2270; J2405; J2919; J7030; Q9967

== ENCOUNTER 2024-05-10 15:37 | Observation (INO) | payer OTHER, SELFPAY ==
[2024-05-10] VITALS (14 sets, daily range): BP systolic 134–167; BP diastolic 67–100; PULSE 107–125; RESP 16–23; TEMP 36.3–37.2; O2SAT 95–100
--- NOTE | ~2024-05-10 | XR_ITS ---
EXAMINATION: XR thoracic spine 2V DATE: 05/12/2024 15:24 INDICATION: Back pain. Fall. TECHNIQUE: 3 views of thoracic spine were obtained. COMPARISON: Thoracic spine radiographs 03/05/2022 FINDINGS: Bone alignment is normal. There is mild chronic anterior wedging of T7, T11, and T12 verteb ral bodies. Intervertebral disc heights are normal. There are bridging endplate osteophytes at multip le levels in the spine, consistent with diffuse idiopathic skeletal hyperostosis (DISH). There are ch anges of disc replacement at 2 levels in thoracic spine. IMPRESSION: 1. DISH. Reviewed, dictated and finalized at location E. IMPRESSION: 1. DISH.
--- NOTE | ~2024-05-10 | CT_ITS ---
CT abdomen pelvis w con Ordering provider: Saw Gan MD History: 63 years Female with . Nausea vomiting diarrhea, Crohn's flare? . Comparison: January 02, 2024 Technique: CT abdomen and pelvis with IV and without oral contrast. Automated exposure control and it erative reconstruction technique were employed. The dose-length product was 1288.58 mGy-cm. 100 mL Om nipaque 350 was given IV. Swelling over Findings: VISUALIZED LOWER CHEST: Dependent atelectatic changes. UPPER ABDOMINAL ORGANS: Liver: Fat infiltration. Gallbladder: Normal. Spleen: Normal. Benign calcifications. Stomach/duodenum: Normal. Pancreas: Normal. Adrenals: Normal. Kidneys: Normal. PELVIC ORGANS: The bladder is normal. Uterus: Fibroid is seen anteriorly measuring 2.6 cm. BOWEL AND MESENTERY: Colon: Mild sigmoid diverticulosis without diverticulitis. Small hypodensity seen near to the left of the anal canal which measures 1.6 x 1.8 cm which may be a small abscess. Clinical correlation advise d. Thickening of the soft tissues posterior to the rectum which is connected to this area is noted. I nflammatory changes in the left retrocardiac area medially adjacent to this area is also not excluded . Status post appendectomy. Postoperative changes seen in the cecum and distal small bowel. Small Bowel: Normal. No obstruction. Peritoneum/mesentery: No free air or free fluid. No mesenteric lymphadenopathy. RETROPERITONEUM: Mild atheromatous disease of the abdominal aorta. No retroperitoneal lymphadenopat hy. MUSCULOSKELETAL: Superficial soft tissues: The superficial soft tissues are normal. Bones: Age appropriate degenerative changes of the spine. IMPRESSION: 1. Highly suggestive small abscess in the left perianal area with inflammatory changes extending pos terior to the rectum and in the left buttock medially unchanged from previous examination. 2. No evidence of active Crohn's disease seen in the small and large bowel. 3. Mild fat infiltration of the liver. 4. fibroid of the uterus. Reviewed, dictated and finalized at location A. IMPRESSION: 1. Highly suggestive small abscess in the left perianal area with inflammatory changes extending posterior to the rectum and in the left buttock medially unc hanged from previous examination. 2. No evidence of active Crohn's disease seen in the small and large bowel. 3. Mild fat infiltration of the liver. 4. fibroid of the uterus.
--- NOTE | ~2024-05-10 | XR_ITS ---
EXAMINATION: XR lumbar spine 2-3V DATE: 05/12/2024 15:24 INDICATION: Low back pain. Fall. TECHNIQUE: 3 views of lumbar spine were obtained. COMPARISON: Lumbar spine radiograph 03/05/2022 FINDINGS: Bone alignment is normal. Vertebral body heights are normal. There are endplate osteophytes at all levels. There are bridging endplate osteophytes at multiple levels in the thoracic spine, con sistent with diffuse idiopathic skeletal hyperostosis (DISH). There is multilevel facet joint osteoar thritis, severe in lower lumbar spine. IMPRESSION: 1. Mild lumbar spondylosis. Reviewed, dictated and finalized at location E. IMPRESSION: 1. Mild lumbar spondylosis.
--- NOTE | 2024-05-10 15:41 | ECG_ITS ---
Test Date: 2024-05-10 15:48:49 Measurements Intervals [place] Rate: 123 P: 58 MT: 127 QRS: 1 QRSD: 84 T: 31 QT: 328 QTc: 471 Interpretive Statements SINUS TACHYCARDIA ABNORMAL RHYTHM ECG WARNING: DATA QUALITY MAY AFFECT INTERPRETATION No previous ECG available for comparison Electronically Signed On 05-11-2024 13:35:53 CDT by Sang Do M.D.
[2024-05-10 16:00] LABS: Basophils Absolute Auto 0.1 K/mm3 (0.0-0.1); Basophils Percent Auto 0.5 % (0.2-1.2); Eosinophils Absolute Auto 0.1 K/mm3 (0-0.3); Hematocrit 43.4 % (37.0-47.0); Hemoglobin 14.3 g/dL (12.0-15.0); Immature Granulocyte Absolute 0.05 K/mm3 (0.00-0.031); Immature Granulocyte Percent A 0.4 % (0-0.5); Lymphocytes Absolute Auto 2.31 K/mm3 (0.9-3.2); Lymphocytes Percent Auto 20.6 % (18.3-44.2); Mean Corpuscular HGB Conc 32.9 g/dl (32-36); Mean Corpuscular Hemoglobin 30.7 pg (26-34); Mean Corpuscular Volume 93.1 fl (80-100); Mean Platelet Volume 8.3 fl (7.4-10.4); Monocytes Absolute Auto 0.7 K/mm3 (0.1-0.6); Monocytes Percent Auto 6.2 % (2.6-8.5); Neutrophils Percent Auto 71.3 % (45.5-73.1); Platelet Count Result 355 k/mm3 (150-375); Red Blood Count 4.66 M/mm3 (4.2-5.4); Red Cell Distribution Width 13.1 % (11.5-14.5); White Blood Count 11.2 K/mm3 (4.5-10.0)
[2024-05-10 16:10] LABS: Lactic Acid Reflex 2.6 mmol/L (0.7-2.0)
[2024-05-10 16:11] LABS: Alanine Aminotransferase 30 U/L (6-35); Albumin Level 3.9 g/dL (3.5-5.1); Alkaline Phosphatase 139 U/L (38-126); Anion Gap 12 mmol/L (4-12); Aspartate Amino Transferase 25 U/L (14-36); Bilirubin,Total 0.3 mg/dL (0.2-1.3); Blood Urea Nitrogen 13 mg/dL (7-17); Calcium 9.2 mg/dL (8.4-10.2); Carbon Dioxide 27 mmol/L (22-30); Chloride 98 mmol/L (98-107); Estimated CRCL calculation 69 ml/min; Estimated Glomerular Filt Rate > 60; Glucose 170 mg/dL (65-110); Lipase 67 U/L (23-300); Potassium 3.4 mmol/L (3.4-5.0); Sodium 137 mmol/L (137-145)
--- NOTE | 2024-05-10 16:31 | ED.ABDPAIN ---
HPI - Abdominal Pain General Chief Complaint: Abdominal Pain Stated Complaint: chrons flare up Time Seen by Provider: 05/10/24 15:57 History of Present Illness HPI narrative: 63-year-old female history of Crohn's disease and follows up with Dr. Turner presents to the emergency department complaining increased abdominal pain and nausea. Patient states she has Crohn's flares approximately every 2 months and does require admission to the hospital. Patient states that she began having increased back pain that radiates from her shoulders down to her mid thigh, which patient states is typical for her Crohn's flares. Patient has increased nausea secondary to the pain. Patient states she has had no change in her diarrhea, she always has diarrhea. Patient denies any hemoptysis or hematochezia. Related Data Allergies Allergy/AdvReac Type Severity Reaction Status Date / Time cyclobenzaprine Allergy Mild HYPERACTIVI Verified 03/07/24 08:41 TY infliximab [From Remicade] Allergy Mild Hives Verified 03/07/24 08:41 latex Allergy Mild Rash Verified 03/07/24 08:41 lisinopril Allergy Mild cough Verified 03/07/24 08:41 contact metal agent Allergy Hives Verified 03/07/24 08:41 hydrocodone AdvReac Mild N/V Verified 03/07/24 08:41 clindamycin AdvReac Unknown other Verified 03/07/24 08:41 hydromorphone [From Dilaudid] AdvReac Vomiting Verified 03/07/24 08:41 oxycodone AdvReac Nausea and Verified 03/07/24 08:41 Vomiting palm oil Allergy Intermediate Hives Uncoded 03/07/24 08:41 COCONUT Allergy Mild Hives / Uncoded 03/07/24 08:41 Red Face Delodium AdvReac Mild Vomiting Uncoded 03/07/24 08:41 Review of Systems Review of Systems: All systems reviewed & are unremarkable except as noted in HPI and below PMFSH Past Medical History Medical History Acute sinusitis Allergies Arthritis Arthritis in Crohn's disease with complication BMI 39.0-39.9,adult Cellulitis Crohn's disease Degenerative joint disease Diarrhea Elevated glucose Fatigue Grieving Headache Hypertension Hypokalemia Incisional hernia without obstruction or gangrene Inflammatory arthritis Low back pain Nausea and vomiting Obstructive sleep apnea Osteopenia Pain, joint, multiple sites Seasonal allergies Skin lesion Tobacco abuse Umbilical hernia Yeast infection Surgical History Surgical History History of ankle surgery ORIF right ankle fracture. History of bowel resection History of colonoscopy History of fusion of cervical spine History of hernia repair History of right hemicolectomy (2019) History of tubal ligation Family History Family History Father Diabetes mellitus Malignant neoplasm of prostate Hypertension Family history of diabetes mellitus in first degree relative Family history of malignant neoplasm of urinary bladder Family history of heart disease in male family member before age 55 Mother Diabetes mellitus Family history of kidney disease Patient's mother is Other Family history of cardiovascular disease Social History Social History Social History: Surrogate medical decision maker: Reynold Colbert, spouse. Code status: Full code. Smoking packs per day: 0.5 Smoking cigarettes per day: 10.0 Years smoked: 50 Smoking pack-years: 25.00 Smoking status: Former smoker Second hand tobacco smoke exposure: No Smoking end date: 08/25/23 Alcohol intake: current Drinks per week: 1 Substance use: never Substance use type: does not use Do You Feel Safe in your Home?: Yes Lack of Transportation: No Lack of Food: Never True Current Housing: I Have Housing Concerned About Future Housing: No Difficulty Paying Gas/Electric Bills: No Difficulty Paying for Meds: No Cu
[2024-05-10] MEDS: MORPHINE SULFATE (*CRX) 2 MG/ML INJ IV PUSH ×2 (16:37→20:07)
[2024-05-10] MEDS: ONDANSETRON INJ 4 MG/2 ML VIAL IV PUSH ×2 (16:37→20:07)
[2024-05-10] MEDS: SODIUM CHLORIDE 0.9% IV 1,000 ML 999 ML IV CONT ×2 (16:56→20:09)
[2024-05-10] MEDS: PIPERACILLN/TAZ 3.375GM/NS50ML 3.375 GM/50 ML BAG IVPB ×2 (17:40→23:19)
[2024-05-10] MEDS: methylPREDNISolone SOD SUCC 40 MG VIAL IV PUSH (17:40)
[2024-05-10 18:03] LABS: Add Urine Microscopic? NO; Appearance Urine Clear (Clear); Bilirubin Urine Negative (Negative); Blood Urine Negative (Negative); Color Urine Yellow (Yellow); Glucose Urine UA Negative (Negative); Ketones Urine Negative (Negative); Leukocyte Esterase Ur Negative LEU/UL (Negative); Nitrate Urine Negative (Negative); Protein Urine Negative (Negative); Specific Grav Ur > 1.045 (1.001-1.035); Urobilinogen Urine 0.2 mg/dL (<2.0)
--- NOTE | 2024-05-10 18:27 | PM.IMHP ---
H&P: HPI History of Present Illness Date/Time: 05/10/24 18:27 Chief Complaint: Crohn's Flare, Abdominal Pain Narrative: 63 y/o F presents here with Crohn's flare and back pain with PMH of Crohn's disease, hypertension, inflammatory arthritis, GREGORIA, and tobacco use. The patient presents here from home for further evaluation of a suspected Crohn's flare up and abdominal pain. She reports increased abdominal pain with associated nausea for the past 2 days. Started after she went to the [facility] with her after the eat dinner and drink tea. Patient's typical Crohn's flare-up presents as abdominal pain and back pain with radiation into her shoulders and thighs, currently experiencing these symptoms. Patient has history of Crohn's with flare ups that have been occurring at 2 month intervals and frequent admissions to the hospital. Last flare up 4 months ago. No change in chronic diarrhea. Endorses intermittent bright red blood in her stool that she believes is secondary to hemorrhoids with last occurrence yesterday. Accompanying fatigue, subjective fever, and abdominal bloating. Denies hemoptysis, chills, rectal pain, or body aches. Per chart review has history of C diff infection, last treated in November of 2023. Initial VS at presentation: 97.4? F, HR 125, RR 16, 154/100, and 100% on RA. ED workup showed: WBC 11.2, no anemia, noted significant electrolyte derangements, creatinine 0.7 and GFR >60, glucose 170, lactic acid 2.6, and UA showed specific gravity greater than 1.045, otherwise unremarkable. CT of the abdomen pelvis was highly suggestive for small abscess in the left perianal area with inflammatory changes extending posterior to the rectum in the left buttocks medially unchanged from previous examination (done on 01/03/2024), no evidence of active Crohn's disease seen in the small and large bowel, mild fatty infiltration of the liver, and fibroid of the uterus. Review of Systems Review of Systems: All systems reviewed & are unremarkable except as noted in HPI and below PMFSH Past Medical History Medical History (Updated 05/10/24 @ 20:14 by Luisa Dumas, GLENDA) Acute sinusitis Allergies Arthritis Arthritis in Crohn's disease with complication BMI 39.0-39.9,adult Cellulitis Crohn's disease Degenerative joint disease Diarrhea Elevated glucose Fatigue Grieving Headache Hypertension not currently on medication Hypokalemia Incisional hernia without obstruction or gangrene Inflammatory arthritis Low back pain Nausea and vomiting Obstructive sleep apnea not on CPAP Osteopenia Pain, joint, multiple sites Seasonal allergies Skin lesion Tobacco abuse Umbilical hernia Yeast infection Surgical History Surgical History History of ankle surgery ORIF right ankle fracture. History of bowel resection History of colonoscopy History of fusion of cervical spine History of hernia repair History of right hemicolectomy (2019) History of tubal ligation Family History Family History Father Diabetes mellitus Malignant neoplasm of prostate Hypertension Family history of diabetes mellitus in first degree relative Family history of malignant neoplasm of urinary bladder Family history of heart disease in male family member before age 55 Mother Diabetes mellitus Family history of kidney disease Patient's mother is Other Family history of cardiovascular disease Social History Social History Social History: Surrogate medical decision maker: Reynold Colbert, spouse. Code status: Full code. Smoking packs per day: 0.5 Smoking cigarettes per day: 10.0 Years smoked: 50 Smoking pack-years: 25.00 Smoking status: Former smoker Second hand tobacco smoke exposure: No Smoking end date: 08/25/23 Alcohol intake: n
[2024-05-10 18:58] LABS: Reflex Lactic Acid Yes or No Add Lactic
--- NOTE | 2024-05-10 18:59 | ADMGEN ---
This patient, Saira Colbert, was admitted to Medical Room 257-. Patient/family oriented to hospital policies and general routines including ID bracelet, bed and alarms, visiting hours, pain management, procedures, bathroom and other care routines, personal items, smoking policy, room service/diet, and visiting hours. Information on how to activate the Rapid Response Team has been discussed. Patient/Family are encouraged to report perceived risks to care and to ask questions if they do not understand what they are told or what they should do.
[2024-05-10 19:34] LABS: Lactic Acid Reflex 2.7 mmol/L (0.7-2.0)
[2024-05-10] MEDS: SODIUM CHLORIDE 0.9% IV 1,000 ML 125 ML IV CONT (20:09)
[2024-05-10 20:43] LABS: Procalcitonin 0.1 ng/mL
[2024-05-10] MEDS: DULoxetine HCL 60 MG CAPSULE.DR PO (20:57)
[2024-05-11] MEDS: PIPERACILLN/TAZ 3.375GM/NS50ML 3.375 GM/50 ML BAG IVPB ×4 (05:15→23:19)
[2024-05-11] MEDS: SODIUM CHLORIDE 0.9% IV 1,000 ML 125 ML IV CONT (05:16)
[2024-05-11 05:30] LABS: Basophils Percent Auto 0.2 % (0.2-1.2); Hematocrit 39.8 % (37.0-47.0); Hemoglobin 12.7 g/dL (12.0-15.0); Immature Granulocyte Absolute 0.04 K/mm3 (0.00-0.031); Immature Granulocyte Percent A 0.4 % (0-0.5); Lymphocytes Absolute Auto 0.89 K/mm3 (0.9-3.2); Lymphocytes Percent Auto 9.3 % (18.3-44.2); Mean Corpuscular HGB Conc 31.9 g/dl (32-36); Mean Corpuscular Hemoglobin 30.3 pg (26-34); Mean Platelet Volume 8.5 fl (7.4-10.4); Monocytes Absolute Auto 0.2 K/mm3 (0.1-0.6); Monocytes Percent Auto 2.4 % (2.6-8.5); Neutrophils Absolute Auto 8.4 K/mm3 (1.3-6.7); Neutrophils Percent Auto 87.7 % (45.5-73.1); Platelet Count Result 305 k/mm3 (150-375); Red Blood Count 4.19 M/mm3 (4.2-5.4); Red Cell Distribution Width 12.5 % (11.5-14.5); White Blood Count 9.5 K/mm3 (4.5-10.0)
[2024-05-11 05:41] LABS: Lactic Acid Reflex 2.2 mmol/L (0.7-2.0)
[2024-05-11 05:46] LABS: Alanine Aminotransferase 36 U/L (6-35); Albumin Level 3.3 g/dL (3.5-5.1); Alkaline Phosphatase 114 U/L (38-126); Anion Gap 8 mmol/L (4-12); Aspartate Amino Transferase 32 U/L (14-36); Bilirubin,Total 0.5 mg/dL (0.2-1.3); Blood Urea Nitrogen 10 mg/dL (7-17); Calcium 8.1 mg/dL (8.4-10.2); Carbon Dioxide 24 mmol/L (22-30); Chloride 103 mmol/L (98-107); Estimated CRCL calculation 79 ml/min; Estimated Glomerular Filt Rate > 60; Glucose 173 mg/dL (65-110); Potassium 4.3 mmol/L (3.4-5.0); Sodium 135 mmol/L (137-145)
[2024-05-11 06:00] VITALS: BP 115/61; PULSE 97; RESP 20; TEMP 36.2; O2SAT 97
[2024-05-11 08:01] VITALS: O2SAT 96
--- NOTE | 2024-05-11 08:01 | PM.IMPN ---
Progress Note: A&P Assessment and Plan (1) Sepsis: Qualifiers: Sepsis acute organ dysfunction status: without acute organ dysfunction Sepsis type: sepsis due to unspecified organism Qualified Code(s): A41.9 - Sepsis, unspecified organism Code(s): A41.9 - Sepsis, unspecified organism Status: Acute Assessment and Plan: - meets SIRS criteria: HR, RR. No hypoxia or hypotension. - lactic acid: 2.6 -> 2.2 -> 2.1 - lactic elevated, procalcitonin 0.1 - 30 mL/kg = 2300, 2L bolus given - suspected source: perianal abscess suspected - started on Zosyn on 05/10 - blood cultures drawn on 05/10 - UA: > 1.045 specific gravity - CT abdomen/pelvis: highly suggestive small abscess in the left perianal area with inflammatory changes extending posterior to the rectum and in the left buttock medially - given hx of recurrent c. diff infections, will add testing - trend labs (2) Perianal abscess: Code(s): K61.0 - Anal abscess Status: Acute Assessment and Plan: - CT abdomen/pelvis: 1. Highly suggestive small abscess in the left perianal area with inflammatory changes extending posterior to the rectum and in the left buttock medially unchanged from previous examination. 2. No evidence of active Crohn's disease seen in the small and large bowel. 3. Mild fat infiltration of the liver. 4. fibroid of the uterus. - started on Zosyn on 05/10 - general surgery consulted, awaiting formal recs -unchanged from prior imaging in January -no surgical intervention necessary (3) Crohn's disease: Qualifiers: Digestive disease complication type: with abscess Gastrointestinal tract location: unspecified location Qualified Code(s): K50.914 - Crohn's disease, unspecified, with abscess Code(s): K50.90 - Crohn's disease, unspecified, without complications Status: Chronic Assessment and Plan: - GI consulted, awaiting formal recs - per GI request, start on Solu-Medrol for flare 40 mg IVP daily ordered - IV fluids and monitor I&Os -stop budesonide on d/c if she is still on prednisone - follow up in GI office for Reshma blacko-auth vs Entyvio -stool studies c.difficile, stool culture, fecal calprotectin pending Plan Patient here with abdominal pain, bloating, and nausea. Symptoms consistent with previous Crohn's flare ups. Started on methylprednisolone IVP per GI request. GI consulted. CT concerning for perianal abscess, general surgery consulted, and started on Zosyn. Met sirs criteria, blood cultures pending, and lactic elevated. Given 1L bolus, will give additional 1L bolus, then transition to 125 mL/hr. Continue to trend labs. Diet: Clear liquid GI Prophylaxis: Not currently indicated DVT Prophylaxis: SCDs Lines: Peripheral Code Status: Full code Subjective Date/time seen: 05/11/24 08:01 Interval history: 63 y/o F presents here with Crohn's flare and back pain with PMH of Crohn's disease, hypertension, inflammatory arthritis, GREGORIA, and tobacco use.The patient presents here from home for further evaluation of a suspected Crohn's flare up and abdominal pain. She reports increased abdominal pain with associated nausea for the past 2 days. 05/11: Mrs. Colbert is laying in bed in no acute distress. She says she feels better after her steroids and IV fluids. She denies nausea or vomiting. Her last bowel movement was yesterday at 1400. She says that she was having back pain that would travel to her lower abdomen and cause nausea. Today that has not reoccurred and she tolerated a clear liquid diet. Review of Systems Review of Systems: All systems reviewed & are unremarkable except as noted in HPI and below Exam Narrative: General: well appearing, appears stated age. HEENT: normocephalic, atraumatic. Mucous membranes moist. EOMI, PERRLA, bilateral sclera anicteric, no conjunctival injection. Neck supple without JVD, lymphadenopathy, or bruit. Respira
--- NOTE | 2024-05-11 08:16 | P.CONGI_ITS ---
I, Norberto Gudino MD, have provided a substantive portion of the care of this patient and discussed the patient with my Nurse Practitioner. I have reviewed any new relevant radiographic and laboratory results including medications. I agree with her documentation as noted below.?I personally performed the medical decision making and much of the history and exam for this encounter. briefly, she is well known to us with Crohn's s/p ileocolic resection with [id number] ileocolic anastomosis 2018. Biopsy showed active ileitis with Crohn's after hospitalization for SBO, she has been on stelara, pentasa and remicade but either did not work or tolerated, currently on humira, also 20 mg prednisone. Here with same diarrhea and more abdominal pain, also noted small size abscess unchanged. On iv steroids and abx, pending stool sample but feeling better. Plan is to start either skyrizi, entyvio or rinvoq as soon as she can follow-up in office. She thinks that humira is not longer making a difference. Assessment and Plan Assessment and plan (1) Crohn's disease: Qualifiers: Gastrointestinal tract location: small intestine Digestive disease complication type: with abscess Qualified Code(s): K50.014 - Crohn's disease of small intestine with abscess Code(s): K50.90 - Crohn's disease, unspecified, without complications Status: Acute (2) Abscess: Code(s): L02.91 - Cutaneous abscess, unspecified Status: Acute (3) Diarrhea: Code(s): R19.7 - Diarrhea, unspecified Status: Acute Plan 1. Crohn's disease flare / diarrhea: Last colonoscopy on 09/21/2023 showed mild localized Crohn's disease in the distal ileum with superficial ulcers at the ileocolonic anastomosis. Patient reports diarrhea with bowel movements 25 times per day despite being on Humira 40 mg every 2 weeks since 12/2022. Patient states that she has also been on prednisone 20 mg daily since her hospitalization in January along with and budesonide 9 mg daily for the past 6-8 months. budesonide is not listed on the patient's outpatient medications so is unclear why she was taking both of these steroids concurrently. Patient was initially diagnosed with Crohn's disease in 2012. S/p ileocolonic resection secondary to small bowel obstruction. She was previously on Pentasa, Stelara, a nd Remicade without improvement or unable to tolerate this medications. Had her last GI office visit they discussed starting Skyrizi but according to the patient this was not covered by her insurance because the first dose would be IV administration. Last time fecal calprotectin was checked was in December 2023 at which time levels were 1450. Patient was treated for C diff in November. CT on admission showed no active Crohn's inflammation in the large or small intestine. * Check stool studies including C. difficile, stool culture, fecal calprotectin * Continue steroids and Humira * patient should not restart budesonide upon discharge if she is also taking prednisone * We will have our office follow up on prior Skyrizi PA and if not covered may consider Entyvio 2. Perianal abscess: CT abdomen/pelvis on 05/10/2024 showed small abscess in the left perianal area with inflammatory changes extending posterior to the rectum and in the left buttock. Patient reports lower back pain radiating down both legs. DDX: Perianal Crohn's disease vs other etiology * Surgery on case, further recommendation to follow * Pain control as needed Thank you very much for allowing me to share in the care of this very nice patient. This report may have been done utilizing a voice recognition system. Attempts
--- NOTE | 2024-05-11 08:16 | WPDGICN ---
Assessment and Plan Assessment and plan (1) Crohn's disease: Qualifiers: Gastrointestinal tract location: small intestine Digestive disease complication type: with abscess Qualified Code(s): K50.014 - Crohn's disease of small intestine with abscess Code(s): K50.90 - Crohn's disease, unspecified, without complications Status: Acute (2) Abscess: Code(s): L02.91 - Cutaneous abscess, unspecified Status: Acute (3) Diarrhea: Code(s): R19.7 - Diarrhea, unspecified Status: Acute Plan 1. Crohn's disease flare / diarrhea: Last colonoscopy on 09/21/2023 showed mild localized Crohn's disease in the distal ileum with superficial ulcers at the ileocolonic anastomosis. Patient reports diarrhea with bowel movements 25 times per day despite being on Humira 40 mg every 2 weeks since 12/2022. Patient states that she has also been on prednisone 20 mg daily since her hospitalization in January along with and budesonide 9 mg daily for the past 6-8 months. budesonide is not listed on the patient's outpatient medications so is unclear why she was taking both of these steroids concurrently. Patient was initially diagnosed with Crohn's disease in 2012. S/p ileocolonic resection secondary to small bowel obstruction. She was previously on Pentasa, Stelara, and Remicade without improvement or unable to tolerate this medications. Had her last GI office visit they discussed starting Skyrizi but according to the patient this was not covered by her insurance because the first dose would be IV administration. Last time fecal calprotectin was checked was in December 2023 at which time levels were 1450. Patient was treated for C diff in November. CT on admission showed no active Crohn's inflammation in the large or small intestine. Check stool studies including C. difficile, stool culture, fecal calprotectin Continue steroids and Humira patient should not restart budesonide upon discharge if she is also taking prednisone We will have our office follow up on prior Reshma PA and if not covered may consider Entyvio 2. Perianal abscess: CT abdomen/pelvis on 05/10/2024 showed small abscess in the left perianal area with inflammatory changes extending posterior to the rectum and in the left buttock. Patient reports lower back pain radiating down both legs. DDX: Perianal Crohn's disease vs other etiology Surgery on case, further recommendation to follow Pain control as needed Thank you very much for allowing me to share in the care of this very nice patient. This report may have been done utilizing a voice recognition system. Attempts have been made to correct errors. However, there may be uncorrected grammatical, spelling, and recognition errors present. GI Consult Note Consult date/time: 05/11/24 08:16 Reason for consult: Crohn's disease HPI: This is a pleasant 63 year old female with a past medical surgical history of Crohn's disease, hypertension, inflammatory arthritis, obstructive sleep apnea, tobacco use, hernia repair, tubal ligation, and right hemicolectomy. She presented to the ER on 05/10/2024 with complaints of abdominal pain and suspected Crohn's flare. GI consulted for Crohn's disease flare. Patient was originally diagnosed with Crohn disease in 2012 when colonoscopy showed terminal ileitis. In 2019, she was hospitalized with small bowel obstruction and underwent hand-assisted laparoscopic ileocolic resection with [id number] ileocolic anastomosis. Biopsy showed active ileitis with Crohn's. Pentasa did not work. EGD on 12/2020 was normal and colonoscopy showed disease in ileum (colon biopsy normal, also found ulcer near anal area). Repeat colonoscopy on 09/2023 showed similar findings involving terminal ileum and normal rectal biopsies. She was on Stelara for approximately 1 year with no changes and Remicade but did not tolerate. Currently has been on Humira 40 mg every 2 weeks since 12/2022. Last
[2024-05-11 08:24] LABS: Reflex Lactic Acid Yes or No Add Lactic
--- NOTE | 2024-05-11 09:01 | PM.CNGS ---
Assessment and Plan Assessment and plan (1) Perianal abscess: Code(s): K61.0 - Anal abscess Status: Acute Assessment and Plan: small abscess unchanged from January, exam completely benign, will cont observation at this point (2) Crohn's disease: Code(s): K50.90 - Crohn's disease, unspecified, without complications Status: Acute Assessment and Plan: management per GI/primary team History of Present Illness Consult details Consult date: 05/11/24 Reason for consult: abdominal pain Requesting physician: Piper Calvert APRN Narrative: The patient is a 63-year-old female presenting to the emergency department complaining of diffuse abdominal pain associated with nausea, bloating. The patient reports the pain is diffuse and radiates into her back, shoulders. The patient reports this is very typical for her Crohn's flare ups. The patient reports worsening symptoms over the last 2 days. Workup in the emergency department, including CT scan, is significant for Crohn's disease, small perianal abscess. Of note, the patient denies any perianal pain, wound, drainage. The patient has been admitted multiple times for Crohn's flare ups and reports frequent admissions every couple of months. Review of CT scan with the radiologist shows that this small abscess was present in January. Review of Systems Review of Systems: All systems reviewed & are unremarkable except as noted in HPI and below PMFSH Past Medical History Medical History Acute sinusitis Allergies Arthritis Arthritis in Crohn's disease with complication BMI 39.0-39.9,adult Cellulitis Crohn's disease Degenerative joint disease Diarrhea Elevated glucose Fatigue Grieving Headache Hypertension not currently on medication Hypokalemia Incisional hernia without obstruction or gangrene Inflammatory arthritis Low back pain Nausea and vomiting Obstructive sleep apnea not on CPAP Osteopenia Pain, joint, multiple sites Seasonal allergies Skin lesion Tobacco abuse Umbilical hernia Yeast infection Surgical History Surgical History History of ankle surgery ORIF right ankle fracture. History of bowel resection History of colonoscopy History of fusion of cervical spine History of hernia repair History of right hemicolectomy (2019) History of tubal ligation Family History Family History Father Diabetes mellitus Malignant neoplasm of prostate Hypertension Family history of diabetes mellitus in first degree relative Family history of malignant neoplasm of urinary bladder Family history of heart disease in male family member before age 55 Mother Diabetes mellitus Family history of kidney disease Patient's mother is Other Family history of cardiovascular disease Social History Social History Social History: Surrogate medical decision maker: Reynold Colbert, spouse. Code status: Full code. Smoking packs per day: 0.5 Smoking cigarettes per day: 10.0 Years smoked: 50 Smoking pack-years: 25.00 Smoking status: Former smoker Second hand tobacco smoke exposure: No Smoking end date: 08/25/23 Alcohol intake: never Drinks per week: 1 Substance use: never Substance use type: does not use Do You Feel Safe in your Home?: Yes Lack of Transportation: No Lack of Food: Never True Current Housing: I Have Housing Concerned About Future Housing: No Difficulty Paying Gas/Electric Bills: No Difficulty Paying for Meds: No Currently Unemployed: No Education: Trade/Vocational Certificate Difficulty w/ Childcare or Family Care: No Living arrangements: with family Occupation/Education: retired Gender identity (if verbalized by the patient): Female Sexual Orientation (
[2024-05-11] MEDS: DULoxetine HCL 60 MG CAPSULE.DR PO ×2 (09:46→17:59)
[2024-05-11] MEDS: LORATADINE 10 MG TABLET PO (09:46)
[2024-05-11] MEDS: buPROPion HCL XL (24 HR) 150 MG TABCR PO (09:46)
[2024-05-11] MEDS: methylPREDNISolone SOD SUCC 40 MG VIAL IV PUSH (09:47)
[2024-05-11 10:06] LABS: Lactic Acid 2.1 mmol/L (0.7-2.0)
[2024-05-11 12:18] LABS: Toxigenic C. Diff NEGATIVE (NEGATIVE)
[2024-05-11 14:00] VITALS: BP 140/78; PULSE 98; RESP 18; TEMP 36.4; O2SAT 96
[2024-05-11] MEDS: SODIUM CHLORIDE 0.9% IV 1,000 ML 50 ML IV CONT (16:13)
[2024-05-11] MEDS: ONDANSETRON INJ 4 MG/2 ML VIAL IV PUSH (16:15)
[2024-05-11] MEDS: MORPHINE SULFATE (*CRX) 2 MG/ML INJ IV PUSH (16:16)
[2024-05-11 20:58] VITALS: BP 118/59; PULSE 94; RESP 20; TEMP 36.5; O2SAT 95
[2024-05-12 04:48] LABS: Basophils Percent Auto 0.3 % (0.2-1.2); Eosinophils Percent Auto 0.2 % (0-4.4); Hematocrit 36.9 % (37.0-47.0); Immature Granulocyte Absolute 0.07 K/mm3 (0.00-0.031); Immature Granulocyte Percent A 0.8 % (0-0.5); Lymphocytes Absolute Auto 2.19 K/mm3 (0.9-3.2); Lymphocytes Percent Auto 25.1 % (18.3-44.2); Mean Corpuscular HGB Conc 32.5 g/dl (32-36); Mean Corpuscular Hemoglobin 30.8 pg (26-34); Mean Corpuscular Volume 94.6 fl (80-100); Mean Platelet Volume 8.3 fl (7.4-10.4); Monocytes Absolute Auto 0.6 K/mm3 (0.1-0.6); Monocytes Percent Auto 6.5 % (2.6-8.5); Neutrophils Absolute Auto 5.9 K/mm3 (1.3-6.7); Neutrophils Percent Auto 67.1 % (45.5-73.1); Platelet Count Result 297 k/mm3 (150-375); Red Cell Distribution Width 12.8 % (11.5-14.5); White Blood Count 8.7 K/mm3 (4.5-10.0)
[2024-05-12 04:54] VITALS: BP 129/57; PULSE 87; RESP 20; TEMP 36.5; O2SAT 97
[2024-05-12 05:00] LABS: Alanine Aminotransferase 33 U/L (6-35); Albumin Level 3.1 g/dL (3.5-5.1); Alkaline Phosphatase 112 U/L (38-126); Anion Gap 5 mmol/L (4-12); Aspartate Amino Transferase 25 U/L (14-36); Bilirubin,Total 0.3 mg/dL (0.2-1.3); Blood Urea Nitrogen 12 mg/dL (7-17); Calcium 8.5 mg/dL (8.4-10.2); Carbon Dioxide 27 mmol/L (22-30); Chloride 104 mmol/L (98-107); Estimated CRCL calculation 61 ml/min; Estimated Glomerular Filt Rate > 60; Glucose 135 mg/dL (65-110); Potassium 3.6 mmol/L (3.4-5.0); Sodium 136 mmol/L (137-145)
[2024-05-12] MEDS: PIPERACILLN/TAZ 3.375GM/NS50ML 3.375 GM/50 ML BAG IVPB (05:00)
[2024-05-12] MEDS: MORPHINE SULFATE (*CRX) 2 MG/ML INJ IV PUSH (05:03)
--- NOTE | 2024-05-12 08:39 | PM.PNGS ---
Progress Note: A&P Assessment and Plan (1) Crohn's disease: Qualifiers: Digestive disease complication type: with abscess Gastrointestinal tract location: small intestine Qualified Code(s): K50.014 - Crohn's disease of small intestine with abscess Code(s): K50.90 - Crohn's disease, unspecified, without complications Status: Acute Assessment and Plan: flare resolved, cont abx/steroids per GI (2) Perianal abscess: Code(s): K61.0 - Anal abscess Status: Acute Assessment and Plan: chronic and small, asymptomatic, cont to observe for now, no acute surgical issues, will s/o, call c ?s, issues Subjective Subjective Date/Time Seen: 05/12/24 08:39 Interval history: feels good, no acute issues, reports abd pain, nausea, bloating resolved, shirley diet Review of Systems Review of Systems: All systems reviewed & are unremarkable except as noted in HPI and below Exam Const: General: cooperative, comfortable and no acute distress Resp: Auscultation: clear to auscultation bilaterally Cardio: Rate: regular rate Rhythm: regular rhythm GI: Inspection: normal to inspection and non-distended GI Palp: No abdominal tenderness and Yes Soft to palpation Objective Data Vital Signs Vital Signs: Vital Signs - 24 hr 05/11/24 09:44 05/11/24 14:00 05/11/24 20:58 Temperature 36.4 C L 36.5 C Pulse Rate 98 94 Respiratory Rate 18 20 Blood Pressure 140/78 118/59 L Pulse Oximetry 96 95 Oxygen Delivery Room Air 05/12/24 04:54 Temperature 36.5 C Pulse Rate 87 Respiratory Rate 20 Blood Pressure 129/57 L Pulse Oximetry 97 Oxygen Delivery Intake/Output Intake/Output: Intake & Output 05/09/24 05/10/24 05/11/24 05/12/24 23:59 23:59 23:59 23:59 Intake Total 1100 4158.0 440 Balance 1100 4158.0 440 Meds/Results Medications: Active Medications Generic Name Dose Route Start Last Admin Trade Name Freq PRN Reason Stop Dose Admin Acetaminophen 650 mg 05/10/24 18:44 Acetaminophen 325 Mg Tablet PO Q6H PRN Mild Pain (1-3) or Fever Albuterol 1 puff 05/10/24 20:10 Albuterol Sulfate (*Sp) Aerosol 1 Puff INHALATION Q4-6H PRN shortness of breath or wheezing Bupropion HCl 150 mg 05/11/24 09:00 05/11/24 09:46 Bupropion Hcl Xl (24 Hr) 150 Mg Tabcr PO 150 mg QAM KARAN Administration Dicyclomine HCl 10 mg 05/10/24 20:10 Dicyclomine Hcl 10 Mg Capsule PO QID PRN abdominal pain Duloxetine HCl 60 mg 05/10/24 20:25 05/11/24 17:59 Duloxetine Hcl 60 Mg Capsule.Dr PO 60 mg BID KARAN Administration Sodium Chloride 1,000 mls @ 50 mls/hr 05/10/24 18:00 05/11/24 16:13 Normal Saline Iv IV CONT 50 mls/hr .Q20H KARAN Administration Piperacillin/Tazobactam/Dextrose 3.375 gm in 50 mls @ 100 mls/hr 05/11/24 00:00 05/12/24 05:30 Zosyn 3.375 Gm/Ns 50 Ml IVPB Infused Q6H KARAN Infusion Loratadine 10 mg 05/11/24 09:00 05/11/24 09:46 Loratadine 10 Mg Tablet PO 10 mg DAILY KARAN Administration Methylprednisolone Sodium Succinate 40 mg 05/11/24 09:00 05/11/24 09:47 Methylprednisolone Sod Succ 40 Mg Vial IV PUSH 40 mg QAM KARAN Administration Morphine Sulfate 2 mg 05/10/24 17:58 05/12/24 05:03 Morphine Sulfate (*Crx) 2 Mg/Ml Inj IV PUSH 2 mg Q2H PRN Administration Pain Rated 7-10 Ondansetron HCl 4 mg 05/10/24 17:58 05/11/24 16:15 Ondansetron Inj 4 Mg/2 Ml Vial IV PUSH 4 mg Q4H PRN Administration Nausea Prochlorperazine Maleate 10 mg 05/10/24 20:10 Prochlorperazine Maleate 5 Mg Tablet PO Q8H PRN nausea and vomiting Simethicone 80 mg 05/10/24 20:10 Simethicone 80 Mg Tab.Chew PO QID PRN Gastric Reflux Radiology Results: ITS Impressions Abdomen/Pelvis CT 05/10/24 17:03 IMPRESSION: 1. Highly suggestive small abscess in the left perianal area with inflammatory changes extending posterior to the rectum and in the left but
[2024-05-12] MEDS: DULoxetine HCL 60 MG CAPSULE.DR PO (08:47)
[2024-05-12] MEDS: LORATADINE 10 MG TABLET PO (08:47)
[2024-05-12] MEDS: methylPREDNISolone SOD SUCC 40 MG VIAL IV PUSH (08:48)
[2024-05-12] MEDS: buPROPion HCL XL (24 HR) 150 MG TABCR PO (08:48)
--- NOTE | 2024-05-12 11:12 | PM.DS ---
DS: Admitting Diagnosis Discharge Date 05/12 Admitting Diagnosis abdominal pain DS: Discharge Diagnosis Discharge Diagnosis (1) Sepsis: Qualifiers: Sepsis acute organ dysfunction status: without acute organ dysfunction Sepsis type: sepsis due to unspecified organism Qualified Code(s): A41.9 - Sepsis, unspecified organism Code(s): A41.9 - Sepsis, unspecified organism Status: Acute Assessment and Plan: - meets SIRS criteria: HR, RR. No hypoxia or hypotension. - lactic acid: 2.6 -> 2.2 -> 2.1 - lactic elevated, procalcitonin 0.1 - 30 mL/kg = 2300, 2L bolus given - suspected source: perianal abscess suspected - started on Zosyn on 05/10 - blood cultures drawn on 05/10 - UA: > 1.045 specific gravity - CT abdomen/pelvis: highly suggestive small abscess in the left perianal area with inflammatory changes extending posterior to the rectum and in the left buttock medially - given hx of recurrent c. diff infections, will add testing - trend labs (2) Perianal abscess: Code(s): K61.0 - Anal abscess Status: Acute Assessment and Plan: - CT abdomen/pelvis: 1. Highly suggestive small abscess in the left perianal area with inflammatory changes extending posterior to the rectum and in the left buttock medially unchanged from previous examination. 2. No evidence of active Crohn's disease seen in the small and large bowel. 3. Mild fat infiltration of the liver. 4. fibroid of the uterus. - started on Zosyn on 05/10 - general surgery consulted, awaiting formal recs -unchanged from prior imaging in January -no surgical intervention necessary (3) Crohn's disease: Qualifiers: Digestive disease complication type: with abscess Gastrointestinal tract location: unspecified location Qualified Code(s): K50.914 - Crohn's disease, unspecified, with abscess Code(s): K50.90 - Crohn's disease, unspecified, without complications Status: Chronic Assessment and Plan: - GI consulted, awaiting formal recs - per GI request, start on Solu-Medrol for flare 40 mg IVP daily ordered - IV fluids and monitor I&Os -stop budesonide on d/c if she is still on prednisone - follow up in GI office for Reshma blacko-auth vs Entyvio -stool studies c.difficile, stool culture, fecal calprotectin pending Plan Patient here with abdominal pain, bloating, and nausea. Symptoms consistent with previous Crohn's flare ups. Started on methylprednisolone IVP per GI request. GI consulted. CT concerning for perianal abscess, general surgery consulted, and started on Zosyn. Met sirs criteria, blood cultures pending, and lactic elevated. Given 1L bolus, will give additional 1L bolus, then transition to 125 mL/hr. Continue to trend labs. Diet: Clear liquid GI Prophylaxis: Not currently indicated DVT Prophylaxis: SCDs Lines: Peripheral Code Status: Full code DS: Summary Hospital Course Reason for hospitalization: Chrons flare Hospital Course: 63 y/o F presents here with Crohn's flare and back pain with PMH of Crohn's disease, hypertension, inflammatory arthritis, GREGORIA, and tobacco use.The patient presents here from home for further evaluation of a suspected Crohn's flare up and abdominal pain. She reports increased abdominal pain with associated nausea for the past 2 days. She was admitted and treated with IV antibiotics, IV steroids, and IV fluids. GI was consulted and recommended stopping her Budesonide and continuing with oral prednisone and Humira at discharge. On 05/12 she was feeling well with no abdominal pain, tolerating a diet, and having bowel movements. Vitals and labs were stable and she ready to discharge home. While waiting for her to arrive she got up from her chair to walk into the bathroom and had a pain across her lumbar spine around L1. This pain caused her fall on her knees and hands. She denied hitting her head. She had point tenderness at L1 with radi
--- NOTE | 2024-05-12 12:48 | WPDGIPROGNO ---
Progress Note: A&P Assessment and Plan (1) Crohn's disease: Qualifiers: Digestive disease complication type: with abscess Gastrointestinal tract location: small intestine Qualified Code(s): K50.014 - Crohn's disease of small intestine with abscess Code(s): K50.90 - Crohn's disease, unspecified, without complications Status: Acute Assessment and Plan: doing much better she can go home with prednisone (discontinue budesonide) and humira- she needs another biologic because lack of efficacy also she either did not respond or tolerate remicade, stelara- next option could be skyrizi, rinvoq- follow-up in office (2) Perianal abscess: Code(s): K61.0 - Anal abscess Status: Acute Assessment and Plan: small and unchanged (3) Abdominal pain: Code(s): R10.9 - Unspecified abdominal pain Status: Acute Assessment and Plan: resolved (4) Nausea & vomiting: Code(s): R11.2 - Nausea with vomiting, unspecified Status: Acute Assessment and Plan: tolerating regular diet home today Subjective Date/time seen: 05/12/24 12:48 Interval history: doing great, tolerating regular diet and going home today Review of Systems Review of Systems: All systems reviewed & are unremarkable except as noted in HPI and below Exam Const: General: cooperative, comfortable and no acute distress HENMT: Face/Nose/Sinus: Normal nares present Eyes: General: appearance normal, both eyes and all related structures Neck: Neck: supple Resp: Auscultation: clear to auscultation bilaterally Cardio: Rate: regular rate Rhythm: regular rhythm GI: Inspection: normal to inspection and non-distended GI Palp: No abdominal tenderness, Yes Soft to palpation and No Tenderness to palpation present (GI) Auscultation: normal bowel sounds Skin: General skin exam: normal color Neuro: Speech: normal speech Motor exam (neuro): 5/5 motor strength present throughout Extrem: General: normal to inspection Psych: Mental Status: mental status grossly normal Objective Data Vital Signs Vital Signs: Vital Signs - 24 hr 05/11/24 14:00 05/11/24 20:58 05/12/24 04:54 Temperature 97.5 F L 97.7 F 97.7 F Pulse Rate 98 94 87 Respiratory Rate 18 20 20 Blood Pressure 140/78 118/59 L 129/57 L Pulse Oximetry 96 95 97 Intake/Output Intake/Output: Intake & Output 05/09/24 05/10/24 05/11/24 05/12/24 23:59 23:59 23:59 23:59 Intake Total 1100 4158.0 1640 Balance 1100 4158.0 1640 Meds/Results Medications: Active Medications Generic Name Dose Route Start Last Admin Trade Name Freq PRN Reason Stop Dose Admin Acetaminophen 650 mg 05/10/24 18:44 Acetaminophen 325 Mg Tablet PO Q6H PRN Mild Pain (1-3) or Fever Albuterol 1 puff 05/10/24 20:10 Albuterol Sulfate (*Sp) Aerosol 1 Puff INHALATION Q4-6H PRN shortness of breath or wheezing Bupropion HCl 150 mg 05/11/24 09:00 05/12/24 08:48 Bupropion Hcl Xl (24 Hr) 150 Mg Tabcr PO 150 mg QAM KARAN Administration Dicyclomine HCl 10 mg 05/10/24 20:10 Dicyclomine Hcl 10 Mg Capsule PO QID PRN abdominal pain Duloxetine HCl 60 mg 05/10/24 20:25 05/12/24 08:47 Duloxetine Hcl 60 Mg Capsule.Dr PO 60 mg BID KARAN Administration Sodium Chloride 1,000 mls @ 50 mls/hr 05/10/24 18:00 05/12/24 11:25 Normal Saline Iv IV CONT 0 mls/hr .Q20H KARAN Infusion Piperacillin/Tazobactam/Dextrose 3.375 gm in 50 mls @ 100 mls/hr 05/11/24 00:00 05/12/24 05:30 Zosyn 3.375 Gm/Ns 50 Ml IVPB Infused Q6H KARAN Infusion Loratadine 10 mg 05/11/24 09:00 05/12/24 08:47 Loratadine 10 Mg Tablet PO 10 mg DAILY KARAN Administration Methylprednisolone Sodium Succinate 40 mg 05/11/24 09:00 05/12/24 08:48 Methylprednisolone Sod Succ 40 Mg Vial IV PUSH 40 mg QAM KARAN Administration Morphine Sulfate 2 mg 05/10/24 17:58 05/12/24 05:03 Morphine Sulfate (*Crx) 2 Mg/
[2024-05-12] MEDS: ACETAMINOPHEN 325 MG TABLET 650 MG PO (13:30)
[2024-05-12 13:36] VITALS: BP 148/74; PULSE 107; RESP 20; TEMP 36; O2SAT 100
[2024-05-16 21:38] LABS: Calprotectin, Stool 1490 mcg/g
== END 2024-05-12 16:05 | disposition home or self-care (01) ==
LOC: ANHED 16:02 → ANH2MED 19:32
PROVIDERS: Nurse Practitioner Family; Student in an Organized Health Care Education/Training Program; Admitting Provider General Practice; Emergency Provider Emergency Medicine; PCP Nurse Practitioner Family; Visit Provider Nurse Practitioner Acute Care
DX: A41.9 Sepsis, unspecified organism (principal); K50.014 Crohn's disease of small intestine with abscess; K61.0 Anal abscess; I10 Essential (primary) hypertension; G47.33 Obstructive sleep apnea (adult) (pediatric); Z90.49 Acquired absence of other specified parts of digestive tract; Z98.1 Arthrodesis status; Z87.891 Personal history of nicotine dependence; Z79.620 Long term (current) use of immunosuppressive biologic
CPT/HCPCS: 36415; 72070; 72100; 74177; 80053; 81003; 83605; 83690; 83735; 83993; 84145; 85025; 87045; 87427; 87449; 87493; 93005; 96361; 96365; 96375; 96376; 99285; A9270; G0378; G0379; J2270; J2405; J2543; J2919; J7030; Q9967

== ENCOUNTER 2024-06-23 08:33 | Inpatient (IN) | payer OTHER, SELFPAY ==
[2024-06-23] VITALS (11 sets, daily range): BP systolic 110–152; BP diastolic 63–85; PULSE 97–125; RESP 16–23; TEMP 36.4–37.1; O2SAT 95–97; BMI 42.3
--- NOTE | ~2024-06-23 | CT_ITS ---
EXAMINATION: CT abdomen pelvis w con DATE: 06/23/2024 10:38 INDICATION: Right abdominal tenderness. Crohn disease. TECHNIQUE: Computed tomography (CT) of the abdomen and pelvis was performed with 100 mL Omnipaque 350 intravenous contrast. Automated exposure control and iterative reconstruction technique were employe d. The dose-length product was 1347.84 mGy-cm. COMPARISON: CT abdomen and pelvis 05/10/2024 FINDINGS: The visualized portions of the lung bases demonstrate mild atelectasis. No pleural effusion . The heart size is normal. No pericardial effusion. There is diffuse hepatic steatosis. The gallblad jovani is normal. Calcifications in the spleen are consistent with old granulomatous disease. The pancre as, adrenal glands, and kidneys are normal. There is wall thickening of the anus and rectum with surr ounding fat stranding. There is a 7 mm presacral abscess. There is an ileocolic anastomosis. There is wall thickening of the distal ileum. There are no dilated loops of bowel. There are no pathologicall y enlarged lymph nodes. There is no free intraperitoneal fluid. There is a 2.6 cm uterine fibroid. Th ere is mild thoracic and lumbar spondylosis. IMPRESSION: 1. Inflammation in around the anus and rectum with 7 mm presacral abscess. 2. Wall thickening of distal ileum, consistent with Crohn disease. Reviewed, dictated and finalized at location A.
--- NOTE | 2024-06-23 09:02 | ECG_ITS ---
Test Date: 2024-06-23 09:59:41 Measurements Intervals [place] Rate: 120 P: 56 VT: 104 QRS: 5 QRSD: 89 T: 60 QT: 330 QTc: 467 Interpretive Statements SINUS TACHYCARDIA LEFT VENTRICULAR HYPERTROPHY WITH ST-T CHANGE MINIMAL Q WAVES- HIGH LATERAL LEADS NONSPECIFIC ST & T-WAVE ABNORMALITY- INF/LAT LEADS BASELINE ARTIFACT- I, II, III, AVR, AVL, AVF, V1 ABNORMAL ECG Compared to ECG 05/10/2024 15:48:49 NO SIGNIFICANT CHANGE Electronically Signed On 06-23-2024 10:01:41 CDT by Jarred Maria D.O.
[2024-06-23] MEDS: SODIUM CHLORIDE 0.9% IV 2,000 ML 999 ML IV CONT (09:41)
[2024-06-23] MEDS: ONDANSETRON INJ 4 MG/2 ML VIAL IV PUSH (09:42)
[2024-06-23] MEDS: MORPHINE SULFATE (*CRX) 4 MG/ML INJ 8 MG IV PUSH (09:56)
[2024-06-23 09:58] LABS: Basophils Absolute Auto 0.1 K/mm3 (0.0-0.1); Basophils Percent Auto 0.8 % (0.2-1.2); Eosinophils Absolute Auto 0.1 K/mm3 (0-0.3); Eosinophils Percent Auto 0.7 % (0-4.4); Hematocrit 41.3 % (37.0-47.0); Hemoglobin 13.4 g/dL (12.0-15.0); Immature Granulocyte Absolute 0.05 K/mm3 (0.00-0.031); Immature Granulocyte Percent A 0.6 % (0-0.5); Lymphocytes Absolute Auto 1.36 K/mm3 (0.9-3.2); Lymphocytes Percent Auto 15.2 % (18.3-44.2); Mean Corpuscular HGB Conc 32.4 g/dl (32-36); Mean Corpuscular Hemoglobin 29.6 pg (26-34); Mean Corpuscular Volume 91.4 fl (80-100); Mean Platelet Volume 8.5 fl (7.4-10.4); Monocytes Percent Auto 11.7 % (2.6-8.5); Neutrophils Absolute Auto 6.3 K/mm3 (1.3-6.7); Platelet Count Result 343 k/mm3 (150-375); Red Blood Count 4.52 M/mm3 (4.2-5.4); Red Cell Distribution Width 13.4 % (11.5-14.5); White Blood Count 8.9 K/mm3 (4.5-10.0)
[2024-06-23 10:18] LABS: Alanine Aminotransferase 36 U/L (6-35); Albumin Level 3.7 g/dL (3.5-5.1); Alkaline Phosphatase 138 U/L (38-126); Anion Gap 11 mmol/L (4-12); Aspartate Amino Transferase 50 U/L (14-36); Bilirubin,Total 0.3 mg/dL (0.2-1.3); Blood Urea Nitrogen 10 mg/dL (7-17); Calcium 8.7 mg/dL (8.4-10.2); Carbon Dioxide 22 mmol/L (22-30); Chloride 100 mmol/L (98-107); Estimated CRCL calculation 69 ml/min; Estimated Glomerular Filt Rate > 60; Glucose 183 mg/dL (65-110); Lipase 99 U/L (23-300); Magnesium 1.6 mg/dL (1.6-2.3); Phosphorus 2.8 mg/dL (2.5-4.5); Potassium 3.4 mmol/L (3.4-5.0); Sodium 133 mmol/L (137-145)
[2024-06-23 10:56] LABS: Add Urine Microscopic? YES; Appearance Urine Clear (Clear); Bacteria Urine None Seen /hpf; Bilirubin Urine Negative (Negative); Blood Urine Negative (Negative); Color Urine Yellow (Yellow); Glucose Urine UA Negative (Negative); Ketones Urine Negative (Negative); Leukocyte Esterase Ur Trace LEU/UL (Negative); Nitrate Urine Negative (Negative); Non Pathogenic Casts 0-2; Protein Urine Negative (Negative); RBC Urine 0-2 /hpf (0-2); Specific Grav Ur 1.005 (1.001-1.035); Squamous Epithelial Cell Urine None Seen /hpf (Few); Urobilinogen Urine 0.2 mg/dL (<2.0); WBC Urine 0-5 /hpf (0-3); pH Urine 5.5 (5.0-9.0)
--- NOTE | 2024-06-23 11:45 | ED.GENADULT ---
HPI - General Adult General Chief complaint: Abdominal Pain Stated complaint: abd pain Time Seen by Provider: 06/23/24 08:40 History of Present Illness HPI narrative: This is a 64-year-old female with history of Crohn's disease presenting with abdominal pain. Patient says she has pain across the upper part of her abdomen. It is a pressure and stabbing pain. Is nonradiating time 10 intensity and constant. It has been going on for 1 week but she is frequently has abdominal pain due to her Crohn's disease. Associated with nausea vomiting. Last bowel movement was earlier today and was nonbloody. Patient denies fevers chills. No chest pain difficulty breathing. Patient's steroid dosing recently been decreased to 20 mg daily from 30 mg daily. Patient is also complaining of right-sided sciatica. She has seen her primary care for this position for this is being treated with duloxetine. Related Data Home Medications Medication Instructions Recorded Confirmed simethicone 80 mg chewable tablet 80 mg PO QID PRN Gastric Reflux 05/10/24 05/15/24 prochlorperazine maleate 10 mg 10 mg PO Q8H PRN 05/15/24 05/15/24 tablet (Compazine) Allergies Allergy/AdvReac Type Severity Reaction Status Date / Time cyclobenzaprine Allergy Mild HYPERACTIVI Verified 06/23/24 10:07 TY infliximab [From Remicade] Allergy Mild Hives Verified 06/23/24 10:07 latex Allergy Mild Rash Verified 06/23/24 10:07 lisinopril Allergy Mild cough Verified 06/23/24 10:07 contact metal agent Allergy Hives Verified 06/23/24 10:07 hydrocodone AdvReac Mild N/V Verified 06/23/24 10:07 clindamycin AdvReac Unknown other Verified 06/23/24 10:07 hydromorphone [From Dilaudid] AdvReac Vomiting Verified 06/23/24 10:07 oxycodone AdvReac Nausea and Verified 06/23/24 10:07 Vomiting palm oil Allergy Intermediate Hives Uncoded 06/23/24 10:07 COCONUT Allergy Mild Hives / Uncoded 06/23/24 10:07 Red Face Delodium AdvReac Mild Vomiting Uncoded 06/23/24 10:07 [facility] Past Medical History Medical History Acute sinusitis Allergies Arthritis Arthritis in Crohn's disease with complication BMI 39.0-39.9,adult Cellulitis Crohn's disease Degenerative joint disease Diarrhea Elevated glucose Fatigue Grieving Headache Hypertension not currently on medication Hypokalemia Incisional hernia without obstruction or gangrene Inflammatory arthritis Low back pain Muscle spasm of back Nausea and vomiting Obstructive sleep apnea not on CPAP Osteopenia Pain, joint, multiple sites Seasonal allergies Skin lesion Tobacco abuse Umbilical hernia Yeast infection Surgical History Surgical History History of ankle surgery ORIF right ankle fracture. History of bowel resection History of colonoscopy History of fusion of cervical spine History of hernia repair History of right hemicolectomy (2019) History of tubal ligation Family History Family History Father Diabetes mellitus Malignant neoplasm of prostate Hypertension Family history of diabetes mellitus in first degree relative Family history of malignant neoplasm of urinary bladder Family history of heart disease in male family member before age 55 Mother Diabetes mellitus Family history of kidney disease Patient's mother is Other Family history of cardiovascular disease Social History Social History Social History: Surrogate medical decision maker: Reynold Colbert, spouse. Code status: Full code. Smoking packs per day: 0.5 Smoking cigarettes per day: 10.0 Years smoked: 50 Smoking pack-years: 25.00 Smoking status: Former smoker Second hand tobacco smoke exposure: No Smoking end date: 08/25/23 Alcohol intake: never Drinks per week: 1 Substance use: nev
[2024-06-23] MEDS: SODIUM CHLORIDE 0.9% IV 1,000 ML 999 ML IV CONT (12:01)
[2024-06-23] MEDS: PIPERACILLN/TAZ 3.375GM/NS50ML 3.375 GM/50 ML BAG IVPB ×3 (12:01→23:33)
[2024-06-23 12:55] LABS: Reflex Lactic Acid Yes or No Add Lactic
[2024-06-23 13:27] LABS: Lactic Acid 1.2 mmol/L (0.7-2.0)
[2024-06-23] MEDS: methylPREDNISolone SOD SUCC 40 MG VIAL IV PUSH (13:31)
--- NOTE | 2024-06-23 14:18 | PM.IMHP ---
H&P: HPI History of Present Illness Date/Time: 06/23/24 14:18 Chief Complaint: Abdominal Pain Narrative: 64 y/o F presents here with abdominal pain with PMH of Crohn's, HTN, inflammatory arthritis, GREGORIA not on CPAP, and osteopenia. Patient presents here from home for further evaluation of abdominal pain. She reports the abdominal pain is chronic but she reports that she has exacerbations of the pain. Pain worsened over the last 2-3 days. She describes this as band like from her bilateral flanks running across her periumbilical region, radiating into her low back/lower extremities (bilateral), constant, no aggravating factors, and alleviated by pressure/splinting her lower back. The abdominal pain is accompanied by rectal pain when she passes a bowel movement, subjective fever (max T 99F), alternating hot/cold flashes, and diarrhea. Diarrhea is non-bloody and volume is same as she typically has. Denies associated body aches. She is concerned she is in a Crohn's flare up. Follows with [facility] for her care. She reports they recently reduced her prednisone dose from 30 mg -> 20 mg at the beginning of this month which she reports she has not tolerated well. Initial VS at presentation: 98.7? F, HR 125, RR 20, 152/85, and 96% on RA. ED workup showed: No leukocytosis, no anemia, sodium 133, creatinine 0.8 and GFR >60, AST 50, ALT 36, and UA showed trace leuk Estrace otherwise unremarkable. CT of the abdomen/pelvis showed inflammation in and around the anus and rectum with 7 mm presacral abscess as well as wall thickening of the distal ileum consistent with Crohn's disease. Previous CT of the abdomen/pelvis on 05/10/2024 showed area that was highly suggestive for small abscess in the left perianal area with inflammatory changes extending posterior to the rectum and in the left buttock medially unchanged from previous exam. Review of Systems Review of Systems: All systems reviewed & are unremarkable except as noted in HPI and below PMFSH Past Medical History Medical History Allergies Arthritis C. difficile colitis (11/2023) Cellulitis Crohn's disease Degenerative joint disease Depression Endometrial hyperplasia Fatigue Hyperlipidemia Hypertension not currently on medication Hypokalemia Incisional hernia without obstruction or gangrene Inflammatory arthritis Kidney stones Obesity Obstructive sleep apnea not on CPAP Osteopenia Pain, joint, multiple sites Postmenopausal Skin lesion Tobacco abuse Umbilical hernia Vitamin D deficiency Yeast infection Surgical History Surgical History History of ankle surgery ORIF right ankle fracture. History of bowel resection History of colonoscopy History of fusion of cervical spine History of hernia repair History of right hemicolectomy (2019) History of tubal ligation Family History Family History Father Diabetes mellitus Malignant neoplasm of prostate Hypertension Family history of diabetes mellitus in first degree relative Family history of malignant neoplasm of urinary bladder Family history of heart disease in male family member before age 55 Mother Diabetes mellitus Family history of kidney disease Patient's mother is Other Family history of cardiovascular disease Social History Social History Social History: Surrogate medical decision maker: Reynold Colbert, spouse. Code status: Full code. Smoking packs per day: 0.5 Smoking cigarettes per day: 10.0 Years smoked: 50 Smoking pack-years: 25.00 Smoking status: Former smoker Second hand tobacco smoke exposure: No Alcohol intake: never Drinks per week: 1 Substance use: never Substance use type: does not use Do You Feel Safe in your Home?: Yes Lack
[2024-06-23] MEDS: LACTATED RINGERS 1,000 ML 125 ML IV CONT ×2 (14:50→23:33)
[2024-06-23] MEDS: DULoxetine HCL 60 MG CAPSULE.DR PO (17:03)
[2024-06-23] MEDS: MORPHINE SULFATE (*CRX) 2 MG/ML INJ IV PUSH (17:41)
[2024-06-23 18:10] LABS: Procalcitonin 0.1 ng/mL
[2024-06-23 23:26] LABS: Toxigenic C. Diff NEGATIVE (NEGATIVE)
[2024-06-24] VITALS (8 sets, daily range): BP systolic 113–141; BP diastolic 59–75; PULSE 85–117; RESP 18–20; TEMP 35.9–36.8; O2SAT 98–100
[2024-06-24] MEDS: PIPERACILLN/TAZ 3.375GM/NS50ML 3.375 GM/50 ML BAG IVPB ×4 (05:40→23:25)
[2024-06-24] MEDS: MORPHINE SULFATE (*CRX) 2 MG/ML INJ IV PUSH ×2 (06:18→19:43)
[2024-06-24 06:25] LABS: Basophils Percent Auto 0.5 % (0.2-1.2); Hematocrit 40.3 % (37.0-47.0); Hemoglobin 12.8 g/dL (12.0-15.0); Immature Granulocyte Absolute 0.02 K/mm3 (0.00-0.031); Immature Granulocyte Percent A 0.4 % (0-0.5); Lymphocytes Absolute Auto 1.27 K/mm3 (0.9-3.2); Lymphocytes Percent Auto 23.1 % (18.3-44.2); Mean Corpuscular HGB Conc 31.8 g/dl (32-36); Mean Corpuscular Hemoglobin 29.8 pg (26-34); Mean Corpuscular Volume 93.9 fl (80-100); Mean Platelet Volume 8.5 fl (7.4-10.4); Monocytes Absolute Auto 0.7 K/mm3 (0.1-0.6); Monocytes Percent Auto 12.5 % (2.6-8.5); Neutrophils Absolute Auto 3.5 K/mm3 (1.3-6.7); Neutrophils Percent Auto 63.5 % (45.5-73.1); Platelet Count Result 317 k/mm3 (150-375); Red Blood Count 4.29 M/mm3 (4.2-5.4); Red Cell Distribution Width 13.3 % (11.5-14.5); White Blood Count 5.5 K/mm3 (4.5-10.0)
[2024-06-24 06:39] LABS: Alanine Aminotransferase 43 U/L (6-35); Albumin Level 3.6 g/dL (3.5-5.1); Alkaline Phosphatase 122 U/L (38-126); Anion Gap 10 mmol/L (4-12); Aspartate Amino Transferase 53 U/L (14-36); Bilirubin,Total 0.3 mg/dL (0.2-1.3); Blood Urea Nitrogen 7 mg/dL (7-17); Calcium 8.3 mg/dL (8.4-10.2); Carbon Dioxide 23 mmol/L (22-30); Chloride 102 mmol/L (98-107); Estimated CRCL calculation 81 ml/min; Estimated Glomerular Filt Rate > 60; Glucose 126 mg/dL (65-110); Potassium 3.7 mmol/L (3.4-5.0); Sodium 135 mmol/L (137-145)
[2024-06-24] MEDS: DULoxetine HCL 60 MG CAPSULE.DR PO ×2 (08:20→17:20)
[2024-06-24] MEDS: methylPREDNISolone SOD SUCC 40 MG VIAL IV PUSH (08:23)
[2024-06-24] MEDS: LACTATED RINGERS 1,000 ML 125 ML IV CONT ×2 (14:05→19:48)
--- NOTE | 2024-06-24 14:44 | WPDGICN ---
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, probably skyrizi but awaiting on her new insurance by the end of year antibiotics given small abscess and will have surgery to see patient again (2) Perianal abscess: Code(s): K61.0 - Anal abscess Status: Acute Assessment and Plan: iv abx (3) Abdominal pain: Code(s): R10.9 - Unspecified abdominal pain Status: Acute Assessment and Plan: better after pain meds (4) Inflammatory arthritis: Code(s): M19.90 - Unspecified osteoarthritis, unspecified site Status: Acute (5) Defecation urgency: Code(s): R15.2 - Fecal urgency Status: Acute Assessment and Plan: will check for c diff again GI Consult Note Consult date/time: 06/24/24 14:44 Reason for consult: crohn's HPI: Saira Colbert is a 64 year old female who is my clinica patient with past medical history of Crohn's disease, hypertension, inflammatory arthritis, obstructive sleep apnea, tobacco use, hernia repair, tubal ligation, and right hemicolectomy. Patient was originally diagnosed with Crohn disease in 2012 when colonoscopy showed terminal ileitis. In 2019, she was hospitalized with small bowel obstruction and underwent hand-assisted laparoscopic ileocolic resection with [id number] ileocolic anastomosis. Biopsy showed active ileitis with Crohn's. Pentasa did not work. EGD on 12/2020 was normal and colonoscopy showed disease in ileum (colon biopsy normal, also found ulcer near anal area). Repeat colonoscopy on 09/2023 showed similar findings involving terminal ileum and normal rectal biopsies. She was on Stelara for approximately 1 year with no changes and Remicade but did not tolerate. Currently has been on Humira 40 mg every 2 weeks since 12/2022. Previous c diff 11/2023. Most recent hospitalization for flare and has been on prednisone 20 mg daily and humira, found small size presacral abscess, surgery evaluated patient and given small size only antibiotics. She is still on humira but not making any difference. She is here again with more discomfort after defecation, will have pain for few minutes, at baseline she has urgency ans uses restroom several times a day- this has not changed much. Also chronic pain. CT scan similar finding of Inflammation in around the anus and rectum with 7 mm presacral abscess.. Wall thickening of distal ileum, consistent with Crohn disease (similar finding CT scan last month of small size abscess). Normal wbc, lactic 3 but normalized after treatment. Review of Systems Constitutional: Constitutional: Denies headache(s) Eyes: Eyes: Denies blurry vision ENT: Reports Normal hearing present and Denies neck pain Cardiovascular: Cardiovascular: Denies chest pain and Denies dyspnea Respiratory: Respiratory: Denies dyspnea Gastrointestinal: Gastrointestinal: Reports abdominal pain and Reports diarrhea Musculoskeletal: Musculoskeletal: Denies stiffness Integumentary/Breasts: Skin/Breast: Denies dry skin Neurologic: Reports Normal hearing present and Denies weakness Psychiatric: Psychiatric: Denies behavioral changes Endocrine: Endocrine: Denies change in body appearance Allergic/Immunologic: Allergic/Immunologic: Denies urticaria [facility] Past Medical History Medical History (Updated 06/24/24 @ 14:53 by Norberto Gudino MD) Allergies Arthritis C. difficile colitis (11/2023) Cellulitis Crohn's disease Defecation urgency Degenerative joint disease Depression Endometrial hyperplasia Fatigue Hyperlipidemia
--- NOTE | 2024-06-24 15:32 | PM.IMPN ---
Progress Note: A&P Assessment and Plan (1) Sepsis: Qualifiers: Sepsis acute organ dysfunction status: without acute organ dysfunction Sepsis type: sepsis due to unspecified organism Qualified Code(s): A41.9 - Sepsis, unspecified organism Code(s): A41.9 - Sepsis, unspecified organism Status: Acute Assessment and Plan: - vital signs improved markedly - lactic acid now angelita - 30 mL/kg = 3100, given 2L bolus in ED. Continue IV fluids at 125 mL/hour. - suspected source: Perianal abscess - started on Zosyn 3.375 q.6 - blood cultures drawn on 06/23, follow - UA: Trace leuk esterase, otherwise unremarkable - CT abdomen/pelvis showed inflammation around anus and rectum with 7 mm presacral abscess, distal ileal thickening consistent with Crohn's disease Contiue IVF due to diarrhea (2) Perianal abscess: Code(s): K61.0 - Anal abscess Status: Acute Assessment and Plan: - CT abdomen/pelvis: There is wall thickening of the anus and rectum with surrounding fat stranding. There is a 7 mm presacral abscess. - CT abdomen/pelvis, previous (05/10/2024): Small hypodensity seen near to the left of the anal canal which measures 1.6 x 1.8 cm which may be a small abscess. Unchanged from previous examination. - GI eval noted, gen surgery consulted - started on Zosyn on 06/23 (3) Crohn's disease: Qualifiers: Digestive disease complication type: with abscess Gastrointestinal tract location: unspecified location Qualified Code(s): K50.914 - Crohn's disease, unspecified, with abscess Code(s): K50.90 - Crohn's disease, unspecified, without complications Status: Chronic Assessment and Plan: Continue Prednisone per GI - IV fluids and monitor I&Os - chronic diarrhea with excoriation, petrolatum ointment p.r.n. Gi following Plan Diet: Heart healthy DVT Prophylaxis: Sq Lovenox Code Status: Full code Subjective Date/time seen: 06/24/24 15:32 Interval history: Patient comfortable at bedside Noted she has about 20 to 25 to episodes of diarrhea per day at baseline however she denies any recent exacerbation and no bloody diarrhea Gen surgery consulted Review of Systems Review of Systems: All systems reviewed & are unremarkable except as noted in HPI and below Exam Narrative: General: alert and comfortable Eyes: EOMI, PERRLA ENNT External ears normal, Neck is supple, no masses, Respiratory systems: Clear to auscultation Cardiovascular S1, S2, normal rhythm, no murmur, rub, or gallop; no thrill or palpable murmurs on palpation. Gastrointestinal: soft, non-tender, and non-distended abdomen with no masses; BS present Skin: no rash, lesions, ulcerations, subcutaneous nodules or induration Musculoskeletal: no abnormality and no tenderness, normal ROM Neurologic: Alert and oriented x3, non focal Mental Status Exam: normal affect Objective Data Vital Signs Vital Signs: Vital Signs - 24 hr 06/23/24 16:00 06/23/24 20:35 06/23/24 20:00 Temperature 97.6 F Pulse Rate 102 H 97 100 Respiratory Rate 18 Blood Pressure 110/63 Pulse Oximetry 96 Oxygen Delivery 06/23/24 20:00 06/24/24 00:00 06/24/24 04:00 Temperature Pulse Rate 97 85 Respiratory Rate Blood Pressure Pulse Oximetry Oxygen Delivery Room Air 06/24/24 05:50 06/23/24 21:59 06/24/24 08:00 Temperature 97.0 F L Pulse Rate 87 Respiratory Rate 18 Blood Pressure 113/59 L Pulse Oximetry 98 96 Oxygen Delivery Room Air Room Air 06/24/24 12:00 06/24/24 15:00 Temperature 96.6 F L Pulse Rate 98 97 Respiratory Rate 20 Blood Pressure 139/71 Pulse Oximetry 98 Oxygen Delivery Intake/Output Intake/Output: Intake & Output 06/21/24 06/22/24 06/23/24 06/24/24 23:59 23:59 23:59 23:59 Intake Total 4690 2480 Balance 4690 2480 Meds/Results Medications: Active Medications Generic Name Dose Route Start L
[2024-06-25] VITALS (9 sets, daily range): BP systolic 120–135; BP diastolic 64–72; PULSE 86–97; RESP 16–20; TEMP 35.8–36.8; O2SAT 96–100
[2024-06-25] MEDS: PIPERACILLN/TAZ 3.375GM/NS50ML 3.375 GM/50 ML BAG IVPB ×4 (04:56→23:01)
[2024-06-25] MEDS: LACTATED RINGERS 1,000 ML 125 ML IV CONT ×3 (04:57→23:08)
[2024-06-25] MEDS: ENOXAPARIN 40 MG/0.4 ML SYRINGE SUB-Q (08:10)
[2024-06-25] MEDS: predniSONE 20 MG TABLET 40 MG PO (08:11)
[2024-06-25] MEDS: DULoxetine HCL 60 MG CAPSULE.DR PO ×2 (08:11→17:20)
--- NOTE | 2024-06-25 08:57 | P.CDI_ITS ---
* Morbid Obesity CDI Query Clarification Request Patient with a BMI of 42.3 please provide a diagnosis to accompany this finding: * Overweight * Obesity * Morbid Obesity * Other/Unknown
--- NOTE | 2024-06-25 08:57 | WPDCDIQUERY2 ---
CDI Query Clarification Request Patient with a BMI of 42.3 please provide a diagnosis to accompany this finding: Overweight Obesity Morbid Obesity Other/Unknown
[2024-06-25] MEDS: MORPHINE SULFATE (*CRX) 2 MG/ML INJ IV PUSH ×2 (09:59→14:30)
--- NOTE | 2024-06-25 11:26 | PM.CNGS ---
Assessment and Plan Assessment and plan (1) Perirectal abscess: Code(s): K61.1 - Rectal abscess Status: Acute Assessment and Plan: Patient with history of Crohn disease, who presented with abdominal pain and rectal pain that has progressed over the past month. She has been hospitalized numerous times this year for Crohn's exacerbation. CT scan of the abdomen and pelvis on this admission shows inflammation in and around the anus and rectum with a 7 mm presacral abscess, as well as wall thickening of the distal ileum consistent with Crohn disease. We would recommend treating with IV antibiotics. GI has been consulted for management of her Crohn disease and she is currently on prednisone. She has been on Humira and they are planning to change her biologic eventually as an outpatient. No indication for any surgical intervention at this time. We will continue to follow along. (2) Crohn's disease: Qualifiers: Digestive disease complication type: with abscess Gastrointestinal tract location: unspecified location Qualified Code(s): K50.914 - Crohn's disease, unspecified, with abscess Code(s): K50.90 - Crohn's disease, unspecified, without complications Status: Chronic Assessment and Plan: Continue medical management per GI. (3) Sepsis: Qualifiers: Sepsis acute organ dysfunction status: without acute organ dysfunction Sepsis type: sepsis due to unspecified organism Qualified Code(s): A41.9 - Sepsis, unspecified organism Code(s): A41.9 - Sepsis, unspecified organism Status: Acute Assessment and Plan: Presented with tachycardia, tachypnea, and elevated lactic acid in the setting of perirectal abscess. Lactic acid normalized. WBC normal. Tachycardia resolved. Continue IV antibiotics. Blood cx pending. (4) Obesity, morbid, BMI 40.0-49.9: Code(s): E66.01 - Morbid (severe) obesity due to excess calories Status: Acute Plan I have discussed the patient's case and plan of care with Dr. Harding. History of Present Illness Consult details Consult date: 06/25/24 Reason for consult: other (Perirectal abscess) Requesting physician: Duc Briseno MD Narrative: This is a 64-year-old woman with a history of Crohn's disease, hypertension, and GREGORIA, who we have been asked to see in surgical consultation for perirectal abscess. She was originally diagnosed with Crohn's in 2013. She was admitted in 2019 with a small-bowel obstruction and underwent hand assisted laparoscopic ileocecectomy by Dr. Parker. She developed an incisional hernia at her hand port site in the supraumbilical area and underwent robotic-assisted laparoscopic incisional hernia repair with mesh in 2019. She has had numerous hospitalizations this year for her Crohn's disease. Her last colonoscopy was in September of 2023 that showed Crohn's without complications and external hemorrhoids. Her most recent hospitalization was in early May where she was also seen to have a small left perianal abscess. She was treated with antibiotics and discharged home with steroids. She reports over the past month, her rectal pain and abdominal pain has become more frequent. Over the past 5 days, she has had constant abdominal pain and rectal pain. She developed nausea and vomiting the last few days. She also endorses low-grade fever of 99-100 degrees F at home. She reports 15-25 liquid bowel movements daily, which is normal for her routine and has been unchanged. She reports some blood on the toilet paper that she believes is from excoriation due to the frequent stools. Denies any blood in stools. Due to her progressive symptoms, she presented to the ED 2 days ago for evaluation. Labs showed a normal white blood cell count, sodium 133, potassium 3.4, lactic acid 3.0 (which normalized to 1.2), and mildly elevated AST, ALT, and alk-phos. CT scan of the abdomen and pelvis showed inflammation in and around the anus and rectum wi
--- NOTE | 2024-06-25 11:52 | PM.IMPN ---
Progress Note: A&P Assessment and Plan (1) Sepsis: Qualifiers: Sepsis acute organ dysfunction status: without acute organ dysfunction Sepsis type: sepsis due to unspecified organism Qualified Code(s): A41.9 - Sepsis, unspecified organism Code(s): A41.9 - Sepsis, unspecified organism Status: Acute Assessment and Plan: - vital signs improved markedly - lactic acid now angelita - 30 mL/kg = 3100, given 2L bolus in ED. Continue IV fluids at 125 mL/hour. - suspected source: Perianal abscess - started on Zosyn 3.375 q.6 - blood cultures drawn on 06/23, follow - UA: Trace leuk esterase, otherwise unremarkable - CT abdomen/pelvis showed inflammation around anus and rectum with 7 mm presacral abscess, distal ileal thickening consistent with Crohn's disease Contiue IVF due to diarrhea (2) Perianal abscess: Code(s): K61.0 - Anal abscess Status: Acute Assessment and Plan: - CT abdomen/pelvis: There is wall thickening of the anus and rectum with surrounding fat stranding. There is a 7 mm presacral abscess. - CT abdomen/pelvis, previous (05/10/2024): Small hypodensity seen near to the left of the anal canal which measures 1.6 x 1.8 cm which may be a small abscess. Unchanged from previous examination. - GI eval noted, awaiting Gen surgery eval - on Zosyn on 06/23 (3) Crohn's disease: Qualifiers: Digestive disease complication type: with abscess Gastrointestinal tract location: unspecified location Qualified Code(s): K50.914 - Crohn's disease, unspecified, with abscess Code(s): K50.90 - Crohn's disease, unspecified, without complications Status: Chronic Assessment and Plan: Continue Prednisone per GI - IV fluids and monitor I&Os - chronic diarrhea with excoriation, petrolatum ointment p.r.n. Prednisone 40mg daily per GI Gi following Plan Diet: Heart healthy DVT Prophylaxis: Sq Lovenox Code Status: Full code Subjective Date/time seen: 06/25/24 11:52 Interval history: Patient comfortable at bedside, noted improvement today Noted she has about 20 to 25 to episodes of diarrhea per day at baseline however she denies any recent exacerbation and no bloody diarrhea Awaiting Gen surgery eval Review of Systems Review of Systems: All systems reviewed & are unremarkable except as noted in HPI and below Exam Narrative: General: alert and comfortable Eyes: EOMI, PERRLA ENNT External ears normal, Neck is supple, no masses, Respiratory systems: Clear to auscultation Cardiovascular S1, S2, normal rhythm, no murmur, rub, or gallop; no thrill or palpable murmurs on palpation. Gastrointestinal: soft, non-tender, and non-distended abdomen with no masses; BS present Skin: no rash, lesions, ulcerations, subcutaneous nodules or induration Musculoskeletal: no abnormality and no tenderness, normal ROM Neurologic: Alert and oriented x3, non focal Mental Status Exam: normal affect Const: General: no acute distress and uncomfortable Other: , female, obese body habitus HENMT: Face/Nose/Sinus: Normal nares present Mouth: Yes moist mucous membranes Eyes: General: appearance normal, both eyes and all related structures Sclera: sclerae normal Pupils: Equal, round and reactive pupils present EOM: EOMs intact bilaterally Resp: Effort & Inspection: normal respiratory effort Auscultation: clear to auscultation bilaterally Cardio: Rate: tachycardic (100-110) Rhythm: regular rhythm Other: S1-S2 present without murmur, rub, ectopy GI: Other: Abdomen with mild distention, soft, normoactive bowel sounds in all quadrants. Tender to the mid flanks and mild tenderness to the periumbilical region. Skin: General skin exam: normal color Wounds: no wounds Other: Perianal excoriation and tenderness. Neuro: Cranial nerves: Yes Equal, round and reactive pupils present Speech: normal speech Motor exam
[2024-06-26] VITALS (9 sets, daily range): BP systolic 119–128; BP diastolic 55–74; PULSE 74–95; RESP 13–18; TEMP 36–37; O2SAT 97–99
[2024-06-26] MEDS: MORPHINE SULFATE (*CRX) 2 MG/ML INJ IV PUSH ×2 (00:49→11:53)
[2024-06-26] MEDS: PIPERACILLN/TAZ 3.375GM/NS50ML 3.375 GM/50 ML BAG IVPB (05:11)
[2024-06-26 07:08] LABS: Basophils Percent Auto 0.3 % (0.2-1.2); Eosinophils Percent Auto 0.3 % (0-4.4); Hematocrit 37.2 % (37.0-47.0); Hemoglobin 12.1 g/dL (12.0-15.0); Immature Granulocyte Absolute 0.02 K/mm3 (0.00-0.031); Immature Granulocyte Percent A 0.6 % (0-0.5); Lymphocytes Absolute Auto 1.37 K/mm3 (0.9-3.2); Lymphocytes Percent Auto 38.9 % (18.3-44.2); Mean Corpuscular HGB Conc 32.5 g/dl (32-36); Mean Corpuscular Hemoglobin 30.3 pg (26-34); Mean Corpuscular Volume 93.2 fl (80-100); Mean Platelet Volume 8.3 fl (7.4-10.4); Monocytes Absolute Auto 0.4 K/mm3 (0.1-0.6); Monocytes Percent Auto 12.5 % (2.6-8.5); Neutrophils Absolute Auto 1.7 K/mm3 (1.3-6.7); Neutrophils Percent Auto 47.4 % (45.5-73.1); Platelet Count Result 264 k/mm3 (150-375); Red Blood Count 3.99 M/mm3 (4.2-5.4); Red Cell Distribution Width 13.2 % (11.5-14.5); White Blood Count 3.5 K/mm3 (4.5-10.0)
[2024-06-26 07:19] LABS: Lactic Acid Reflex 1.3 mmol/L (0.7-2.0)
[2024-06-26 07:21] LABS: Alanine Aminotransferase 44 U/L (6-35); Alkaline Phosphatase 99 U/L (38-126); Anion Gap 6 mmol/L (4-12); Aspartate Amino Transferase 57 U/L (14-36); Bilirubin,Total 0.2 mg/dL (0.2-1.3); Blood Urea Nitrogen 6 mg/dL (7-17); Calcium 8.4 mg/dL (8.4-10.2); Carbon Dioxide 30 mmol/L (22-30); Chloride 100 mmol/L (98-107); Estimated CRCL calculation 71 ml/min; Estimated Glomerular Filt Rate > 60; Glucose 90 mg/dL (65-110); Potassium 3.4 mmol/L (3.4-5.0); Sodium 136 mmol/L (137-145)
[2024-06-26] MEDS: LACTATED RINGERS 1,000 ML 125 ML IV CONT (08:04)
[2024-06-26] MEDS: predniSONE 20 MG TABLET 40 MG PO (08:05)
[2024-06-26] MEDS: DULoxetine HCL 60 MG CAPSULE.DR PO ×2 (08:05→16:54)
[2024-06-26] MEDS: ENOXAPARIN 40 MG/0.4 ML SYRINGE SUB-Q (08:05)
--- NOTE | 2024-06-26 11:40 | PM.PNGS ---
Progress Note: A&P Assessment and Plan (1) Perirectal abscess: Code(s): K61.1 - Rectal abscess Status: Acute Assessment and Plan: Clinically improving with IV antibiotics and medical management of her Crohn's exacerbation. Diarrhea is slowing and her rectal pain and abdominal pain have significantly improved. GI still following for management of her Crohn's disease. She is on prednisone and her antibiotics have been switched to oral antibiotics. She is tolerating a heart healthy diet. I will add oral analgesics as an option for pain control since she is tolerating oral intake. No indication for surgical intervention at this time. Will continue to follow. (2) Crohn's disease: Qualifiers: Digestive disease complication type: with abscess Gastrointestinal tract location: unspecified location Qualified Code(s): K50.914 - Crohn's disease, unspecified, with abscess Code(s): K50.90 - Crohn's disease, unspecified, without complications Status: Chronic Assessment and Plan: Continue medical management per GI. Plan I have discussed the patient's case and plan of care with Dr. Harding. Subjective Subjective Date/Time Seen: 06/26/24 11:40 Interval history: Patient reports feeling better today. Her rectal pain has improved. Her diarrhea is slowing and she has only had 2 loose stools since 6 pm last night. She had mild rectal pain for about 15 minutes after each bowel movement that would subside spontaneously. She is mostly complaining of left flank pain today. Yesterday, she was reports RUQ pain radiating around to her right mid back, but this is much better today. She denies any abdominal pain at the time of my exam. Denies nausea or vomiting. She is afebrile and no leukocytosis. Potassium 3.4 and replaced with oral KCL. Exam Const: General: comfortable and no acute distress Nutritional Appearance: obese Orientation/consciousness: patient oriented x3 GI: Inspection: Pannus present, obesity and scar (midline supraumbilical scar with no incisional hernia) GI Palp: Yes Soft to palpation, Yes Tenderness to palpation present (GI) (LUQ tenderness), No Guarding due to palpation present (GI) and No Rebound tenderness present Auscultation: normal bowel sounds : General: Yes no CVA tenderness Objective Data Vital Signs Vital Signs: Vital Signs - 24 hr 06/25/24 12:02 06/25/24 14:28 06/25/24 14:28 Temperature 97.0 F L Pulse Rate 95 88 Respiratory Rate 18 Blood Pressure 130/69 Pulse Oximetry 96 100 Oxygen Delivery Room Air 06/25/24 16:00 06/25/24 20:09 06/25/24 20:00 Temperature 96.5 F L Pulse Rate 86 92 92 Respiratory Rate 16 16 Blood Pressure 120/72 Pulse Oximetry 99 99 Oxygen Delivery Room Air 06/25/24 20:00 06/26/24 00:00 06/26/24 04:00 Temperature Pulse Rate 90 81 74 Respiratory Rate Blood Pressure Pulse Oximetry Oxygen Delivery 06/26/24 05:56 06/26/24 08:02 06/26/24 08:00 Temperature 96.8 F L Pulse Rate 79 84 Respiratory Rate 14 Blood Pressure 128/74 Pulse Oximetry 99 Oxygen Delivery Room Air Intake/Output Intake/Output: Intake & Output 06/23/24 06/24/24 06/25/24 06/26/24 23:59 23:59 23:59 23:59 Intake Total 4690 4034.6 4420 1686 Output Total 3 Balance 4690 4031.6 4420 1686 Meds/Results Medications: Active Medications Generic Name Dose Route Start Last Admin Trade Name Freq PRN Reason Stop Dose Admin Acetaminophen 650 mg 06/23/24 16:08 Acetaminophen 325 Mg Tablet PO Q4H PRN Pain Rated 5 or Less Albuterol 1 puff 06/23/24 16:20 Albuterol Sulfate (*Sp) Aerosol 1 Puff INHALATION Q4-6H PRN shortness of breath or wheezing Amoxicillin/Clavulanate Potassium 1 tablet 06/26/24 11:45 Amoxicillin/Clavulanate K 875-125 Mg Tab PO 07/02/24 21:01 Q12HR KARAN Doxycycline Hyclate 100 mg 06/26/24 12:00 Doxycycline Hyclate 100 Mg Tablet PO 07/02/24 21:01
[2024-06-26] MEDS: DOXYCYCLINE HYCLATE 100 MG TABLET PO ×2 (11:46→21:27)
[2024-06-26] MEDS: AMOXICILLIN/CLAVULANATE K 875-125 MG TAB 1 TABLET PO ×2 (11:46→21:27)
[2024-06-26] MEDS: POTASSIUM CHLORIDE 20 MEQ ER TABLET 40 MEQ PO (11:53)
--- NOTE | 2024-06-26 15:36 | WPDPN ---
Progress Note: A&P Assessment and Plan (1) Sepsis: Qualifiers: Sepsis acute organ dysfunction status: without acute organ dysfunction Sepsis type: sepsis due to unspecified organism Qualified Code(s): A41.9 - Sepsis, unspecified organism Code(s): A41.9 - Sepsis, unspecified organism Status: Acute Assessment and Plan: - vital signs improved markedly - lactic acid now angelita - 30 mL/kg = 3100, given 2L bolus in ED. Continue IV fluids at 125 mL/hour. - suspected source: Perianal abscess - started on Zosyn 3.375 q.6 - blood cultures drawn on 06/23, follow - UA: Trace leuk esterase, otherwise unremarkable - CT abdomen/pelvis showed inflammation around anus and rectum with 7 mm presacral abscess, distal ileal thickening consistent with Crohn's disease Contiue IVF due to diarrhea (2) Perianal abscess: Code(s): K61.0 - Anal abscess Status: Deleted Assessment and Plan: - CT abdomen/pelvis: There is wall thickening of the anus and rectum with surrounding fat stranding. There is a 7 mm presacral abscess. - CT abdomen/pelvis, previous (05/10/2024): Small hypodensity seen near to the left of the anal canal which measures 1.6 x 1.8 cm which may be a small abscess. Unchanged from previous examination. - GI eval noted, awaiting, today Gen surgery evaluated the patient and not surgical intervention is needed - on Zosyn on 06/23 (3) Crohn's disease: Qualifiers: Digestive disease complication type: with abscess Gastrointestinal tract location: unspecified location Qualified Code(s): K50.914 - Crohn's disease, unspecified, with abscess Code(s): K50.90 - Crohn's disease, unspecified, without complications Status: Chronic Assessment and Plan: Continue Prednisone per GI - IV fluids and monitor I&Os - chronic diarrhea with excoriation, petrolatum ointment p.r.n. Prednisone 40mg daily per GI Gi following Plan Patient comfortable at bedside, patient with perianal abscess, noted improvement today Noted she has about 20 to 25 to episodes of diarrhea per day at baseline due to crohn's however she denies any recent exacerbation and no bloody diarrhea, patient is seen by surgery service does not recommend any surgical intervention. will continue and further recommend to follow. Diet: Heart healthy DVT Prophylaxis: Sq Lovenox Code Status: Full code Subjective Date/time seen: 06/26/24 15:36 Interval history: Patient comfortable at bedside, patient with perianal abscess, noted improvement today Noted she has about 20 to 25 to episodes of diarrhea per day at baseline due to crohn's however she denies any recent exacerbation and no bloody diarrhea, patient is seen by surgery service does not recommend any surgical intervention. will continue and further recommend to follow. Review of Systems Review of Systems: All systems reviewed & are unremarkable except as noted in HPI and below Exam Narrative: Patient is comfortable, NAD HEENT: eyes are clear and none icteric LUNGS:CTA HEART: RR S1S2 ABD: BS+, Soft and nontender Lower extremities: no edema SKIN: nonjaundiced Neuro: grossly intact. Objective Data Vital Signs Vital Signs: Vital Signs - 24 hr 06/25/24 16:00 06/25/24 20:09 06/25/24 20:00 Temperature 35.8 C L Pulse Rate 86 92 92 Respiratory Rate 16 16 Blood Pressure 120/72 Pulse Oximetry 99 99 Oxygen Delivery Room Air 06/25/24 20:00 06/26/24 00:00 06/26/24 04:00 Temperature Pulse Rate 90 81 74 Respiratory Rate Blood Pressure Pulse Oximetry Oxygen Delivery 06/26/24 05:56 06/26/24 08:02 06/26/24 08:00 Temperature 36.0 C L Pulse Rate 79 84 Respiratory Rate 14 Blood Pressure 128/74 Pulse Oximetry 99 Oxygen Delivery Room Air 06/26/24 12:02 Temperature Pulse Rate 95 Respiratory Rate Blood Pressure Pulse Oximetry Oxygen Delivery Intake/Output I
--- NOTE | 2024-06-26 16:40 | WPDGIPROGNO ---
Progress Note: A&P Assessment and Plan (1) Perirectal abscess: Code(s): K61.1 - Rectal abscess Status: Acute Assessment and Plan: treated medically, small size surgery on board less urgency (2) Defecation urgency: Code(s): R15.2 - Fecal urgency Status: Acute (3) Crohn's disease: Qualifiers: Digestive disease complication type: with abscess Gastrointestinal tract location: unspecified location Qualified Code(s): K50.914 - Crohn's disease, unspecified, with abscess Code(s): K50.90 - Crohn's disease, unspecified, without complications Status: Chronic Assessment and Plan: on abx and steroids humira but probably will need another biologic- still symptomatic- have to await on new insurance (4) Obesity, morbid, BMI 40.0-49.9: Code(s): E66.01 - Morbid (severe) obesity due to excess calories Status: Acute (5) Abdominal pain: Code(s): R10.9 - Unspecified abdominal pain Status: Acute Assessment and Plan: chronic, on pain meds Subjective Date/time seen: 06/26/24 16:40 Interval history: frequency stool has improved- did not have any for 12 hours still with abdominal pain, now located in left abdomen Review of Systems Review of Systems: All systems reviewed & are unremarkable except as noted in HPI and below Exam Const: General: comfortable and no acute distress Nutritional Appearance: obese Orientation/consciousness: patient oriented x3 HENMT: Face/Nose/Sinus: Normal nares present Eyes: Sclera: sclerae normal Neck: Neck: supple Resp: Effort & Inspection: normal respiratory effort Cardio: Rate: regular rate GI: Inspection: Pannus present, obesity and scar (midline supraumbilical scar with no incisional hernia) GI Palp: Yes Soft to palpation, Yes Tenderness to palpation present (GI) (LUQ tenderness), No Guarding due to palpation present (GI) and No Rebound tenderness present Auscultation: normal bowel sounds : General: Yes no CVA tenderness Skin: General skin exam: normal color Neuro: Speech: normal speech Motor exam (neuro): 5/5 motor strength present throughout Extrem: General: normal to inspection Psych: Mental Status: mental status grossly normal Objective Data Vital Signs Vital Signs: Vital Signs - 24 hr 06/25/24 20:09 06/25/24 20:00 06/25/24 20:00 Temperature 96.5 F L Pulse Rate 92 92 90 Respiratory Rate 16 16 Blood Pressure 120/72 Pulse Oximetry 99 99 Oxygen Delivery Room Air 06/26/24 00:00 06/26/24 04:00 06/26/24 05:56 Temperature 96.8 F L Pulse Rate 81 74 79 Respiratory Rate 14 Blood Pressure 128/74 Pulse Oximetry 99 Oxygen Delivery 06/26/24 08:02 06/26/24 08:00 06/26/24 12:02 Temperature Pulse Rate 84 95 Respiratory Rate Blood Pressure Pulse Oximetry Oxygen Delivery Room Air 06/26/24 14:00 Temperature 98.6 F Pulse Rate 90 Respiratory Rate 18 Blood Pressure 124/68 Pulse Oximetry 97 Oxygen Delivery Intake/Output Intake/Output: Intake & Output 06/23/24 06/24/24 06/25/24 06/26/24 23:59 23:59 23:59 23:59 Intake Total 4690 4034.6 4420 2478.1 Output Total 3 Balance 4690 4031.6 4420 2478.1 Meds/Results Medications: Active Medications Generic Name Dose Route Start Last Admin Trade Name Freq PRN Reason Stop Dose Admin Acetaminophen 1,000 mg 06/26/24 11:47 Acetaminophen 500 Mg Tablet PO Q4H PRN Pain Rated 5 or Less Albuterol 1 puff 06/23/24 16:20 Albuterol Sulfate (*Sp) Aerosol 1 Puff INHALATION Q4-6H PRN shortness of breath or wheezing Amoxicillin/Clavulanate Potassium 1 tablet 06/26/24 11:45 06/26/24 11:46 Amoxicillin/Clavulanate K 875-125 Mg Tab PO 07/02/24 21:01 1 tablet Q12HR KARAN Administration Doxycycline Hyclate 100 mg 06/26/24 12:00 06/26/24 11:46 Doxycycline Hyclate 100 Mg Tablet PO 07/02/24 21:01 100 mg Q12HR KARAN Administration Duloxetine H
[2024-06-27] VITALS (9 sets, daily range): BP systolic 115–132; BP diastolic 55–77; PULSE 83–111; RESP 14–18; TEMP 35.8–36.9; O2SAT 99
[2024-06-27] MEDS: MORPHINE SULFATE (*CRX) 2 MG/ML INJ IV PUSH ×3 (02:53→12:21)
[2024-06-27 06:29] LABS: Hematocrit 43.3 % (37.0-47.0); Hemoglobin 13.8 g/dL (12.0-15.0); Mean Corpuscular HGB Conc 31.9 g/dl (32-36); Mean Corpuscular Hemoglobin 29.7 pg (26-34); Mean Corpuscular Volume 93.3 fl (80-100); Mean Platelet Volume 8.4 fl (7.4-10.4); Platelet Count Result 261 k/mm3 (150-375); Red Blood Count 4.64 M/mm3 (4.2-5.4); Red Cell Distribution Width 13.3 % (11.5-14.5); White Blood Count 4.2 K/mm3 (4.5-10.0)
[2024-06-27] MEDS: predniSONE 20 MG TABLET 40 MG PO (08:15)
[2024-06-27] MEDS: ENOXAPARIN 40 MG/0.4 ML SYRINGE SUB-Q (08:15)
[2024-06-27] MEDS: DULoxetine HCL 60 MG CAPSULE.DR PO ×2 (08:16→16:05)
[2024-06-27] MEDS: DOXYCYCLINE HYCLATE 100 MG TABLET PO ×2 (08:16→20:08)
[2024-06-27] MEDS: AMOXICILLIN/CLAVULANATE K 875-125 MG TAB 1 TABLET PO ×2 (08:16→20:08)
[2024-06-27 08:23] LABS: Anion Gap 12 mmol/L (4-12); Blood Urea Nitrogen 8 mg/dL (7-17); Calcium 8.3 mg/dL (8.4-10.2); Carbon Dioxide 28 mmol/L (22-30); Chloride 88 mmol/L (98-107); Estimated CRCL calculation 81 ml/min; Estimated Glomerular Filt Rate > 60; Glucose 90 mg/dL (65-110); Magnesium 1.9 mg/dL (1.6-2.3); Potassium 3.9 mmol/L (3.4-5.0); Sodium 128 mmol/L (137-145)
--- NOTE | 2024-06-27 09:19 | PM.PNGS ---
Progress Note: A&P Assessment and Plan (1) Perirectal abscess: Code(s): K61.1 - Rectal abscess Status: Acute Assessment and Plan: Clinically improving with nonoperative management with antibiotics. Rectal pain continues to improve. GI still following for management of her Crohn's disease. Continue antibiotics. No indication for surgical intervention. We will sign off at this time. No follow-up with surgery needed. (2) Crohn's disease: Qualifiers: Digestive disease complication type: with abscess Gastrointestinal tract location: unspecified location Qualified Code(s): K50.914 - Crohn's disease, unspecified, with abscess Code(s): K50.90 - Crohn's disease, unspecified, without complications Status: Chronic Assessment and Plan: Continue medical management per GI. Plan I have discussed the patient's case and plan of care with Dr. Hadring. Subjective Subjective Date/Time Seen: 06/27/24 09:19 Patient reports: flatus and diarrhea Interval history: Patient reporting increased epigastric pain and bloating today. She reports nausea and was unable to eat much of her breakfast due to these complaints. She had a banana, which she felt aggravated her pain and nausea. No vomiting. She has had diarrhea through the night, multiple episodes. She feels like her rectal pain has improved. The barrier cream if helping with the external maceration and soreness. She still has pain with bowel movements, but this quickly subsides. Exam Const: General: comfortable and no acute distress Orientation/consciousness: patient oriented x3 GI: Inspection: other (mildly distended in the epigastric area) GI Palp: Yes Soft to palpation, Yes Tenderness to palpation present (GI) (epigastric tenderness), No Guarding due to palpation present (GI) and No Rebound tenderness present Auscultation: normal bowel sounds Objective Data Vital Signs Vital Signs: Vital Signs - 24 hr 06/26/24 12:02 06/26/24 14:00 06/26/24 21:23 Temperature 98.6 F 97.1 F L Pulse Rate 95 90 88 Respiratory Rate 18 13 Blood Pressure 124/68 119/55 L Pulse Oximetry 97 97 Oxygen Delivery 06/26/24 20:02 06/26/24 20:02 06/27/24 00:04 Temperature Pulse Rate 91 84 Respiratory Rate Blood Pressure Pulse Oximetry Oxygen Delivery Room Air 06/27/24 04:01 06/27/24 05:54 Temperature 98.4 F Pulse Rate 88 90 Respiratory Rate 14 Blood Pressure 115/61 Pulse Oximetry 99 Oxygen Delivery Intake/Output Intake/Output: Intake & Output 06/24/24 06/25/24 06/26/24 06/27/24 23:59 23:59 23:59 23:59 Intake Total 4034.6 4420 3268.1 440 Output Total 3 Balance 4031.6 4420 3268.1 440 Meds/Results Medications: Active Medications Generic Name Dose Route Start Last Admin Trade Name Freq PRN Reason Stop Dose Admin Acetaminophen 1,000 mg 06/26/24 11:47 Acetaminophen 500 Mg Tablet PO Q4H PRN Pain Rated 5 or Less Albuterol 1 puff 06/23/24 16:20 Albuterol Sulfate (*Sp) Aerosol 1 Puff INHALATION Q4-6H PRN shortness of breath or wheezing Amoxicillin/Clavulanate Potassium 1 tablet 06/26/24 11:45 06/27/24 08:16 Amoxicillin/Clavulanate K 875-125 Mg Tab PO 07/02/24 21:01 1 tablet Q12HR KARAN Administration Doxycycline Hyclate 100 mg 06/26/24 12:00 06/27/24 08:16 Doxycycline Hyclate 100 Mg Tablet PO 07/02/24 21:01 100 mg Q12HR KARAN Administration Duloxetine HCl 60 mg 06/23/24 17:00 06/27/24 08:16 Duloxetine Hcl 60 Mg Capsule.Dr PO 60 mg BID KARAN Administration Emollient Ointment 1 applic 06/23/24 16:21 Petrolatum Ointment 5 Gm Packet TOPICAL PRN PRN Irritation Post-Diarrhea Enoxaparin Sodium 40 mg 06/25/24 09:00 06/27/24 08:15 Enoxaparin 40 Mg/0.4 Ml Syringe SUB-Q 40 mg DAILY KARAN Administration Morphine Sulfate 2 mg 06/23/24 16:08 06/27/24 08:22 Morphine Sulfate (*Crx) 2 Mg/Ml Inj IV PUSH 2 mg Q4H PRN Administr
--- NOTE | 2024-06-27 14:49 | WPDGIPROGNO ---
Progress Note: A&P Assessment and Plan (1) Perirectal abscess: Code(s): K61.1 - Rectal abscess Status: Acute Assessment and Plan: treated medically, small size surgery on board less urgency (2) Nausea & vomiting: Code(s): R11.2 - Nausea with vomiting, unspecified Status: Acute Assessment and Plan: more nausea today, antiemetics as needed still does not feel ready to go home (3) Defecation urgency: Code(s): R15.2 - Fecal urgency Status: Acute (4) Crohn's disease: Qualifiers: Digestive disease complication type: with abscess Gastrointestinal tract location: unspecified location Qualified Code(s): K50.914 - Crohn's disease, unspecified, with abscess Code(s): K50.90 - Crohn's disease, unspecified, without complications Status: Chronic Assessment and Plan: on abx and steroids humira but probably will need another biologic- still symptomatic- have to await on new insurance (5) Obesity, morbid, BMI 40.0-49.9: Code(s): E66.01 - Morbid (severe) obesity due to excess calories Status: Acute (6) Abdominal pain: Code(s): R10.9 - Unspecified abdominal pain Status: Acute Assessment and Plan: chronic, on pain meds Subjective Date/time seen: 06/27/24 14:49 Interval history: today with more epigastric pain and nausea pain in lower abdomen improved Review of Systems Review of Systems: All systems reviewed & are unremarkable except as noted in HPI and below Exam Const: General: comfortable and no acute distress Nutritional Appearance: obese Orientation/consciousness: patient oriented x3 HENMT: Face/Nose/Sinus: Normal nares present Eyes: Sclera: sclerae normal Neck: Neck: supple Resp: Effort & Inspection: normal respiratory effort Cardio: Rate: regular rate GI: Inspection: Pannus present, obesity and scar (midline supraumbilical scar with no incisional hernia) GI Palp: Yes Soft to palpation, Yes Tenderness to palpation present (GI) (LUQ tenderness), No Guarding due to palpation present (GI) and No Rebound tenderness present Auscultation: normal bowel sounds : General: Yes no CVA tenderness Skin: General skin exam: normal color Neuro: Speech: normal speech Motor exam (neuro): 5/5 motor strength present throughout Extrem: General: normal to inspection Psych: Mental Status: mental status grossly normal Objective Data Vital Signs Vital Signs: Vital Signs - 24 hr 06/26/24 21:23 06/26/24 20:02 06/26/24 20:02 Temperature 97.1 F L Pulse Rate 88 91 Respiratory Rate 13 Blood Pressure 119/55 L Pulse Oximetry 97 Oxygen Delivery Room Air 06/27/24 00:04 06/27/24 04:01 06/27/24 05:54 Temperature 98.4 F Pulse Rate 84 88 90 Respiratory Rate 14 Blood Pressure 115/61 Pulse Oximetry 99 Oxygen Delivery 06/27/24 08:03 06/26/24 16:03 06/27/24 12:00 Temperature Pulse Rate 92 85 91 Respiratory Rate Blood Pressure Pulse Oximetry Oxygen Delivery 06/27/24 14:00 Temperature 96.4 F L Pulse Rate 92 Respiratory Rate 18 Blood Pressure 132/77 Pulse Oximetry 99 Oxygen Delivery Intake/Output Intake/Output: Intake & Output 06/24/24 06/25/24 06/26/24 06/27/24 23:59 23:59 23:59 23:59 Intake Total 4034.6 4420 3268.1 440 Output Total 3 Balance 4031.6 4420 3268.1 440 Meds/Results Medications: Active Medications Generic Name Dose Route Start Last Admin Trade Name Freq PRN Reason Stop Dose Admin Acetaminophen 1,000 mg 06/26/24 11:47 Acetaminophen 500 Mg Tablet PO Q4H PRN Pain Rated 5 or Less Albuterol 1 puff 06/23/24 16:20 Albuterol Sulfate (*Sp) Aerosol 1 Puff INHALATION Q4-6H PRN shortness of breath or wheezing Amoxicillin/Clavulanate Potassium 1 tablet 06/26/24 11:45 06/27/24 08:16 Amoxicillin/Clavulanate K 875-125 Mg Tab PO 07/02/24 21:01 1 tablet Q12HR KARAN Administration Doxycyc
--- NOTE | 2024-06-27 17:58 | WPDPN ---
Progress Note: A&P Assessment and Plan (1) Sepsis: Qualifiers: Sepsis acute organ dysfunction status: without acute organ dysfunction Sepsis type: sepsis due to unspecified organism Qualified Code(s): A41.9 - Sepsis, unspecified organism Code(s): A41.9 - Sepsis, unspecified organism Status: Acute Assessment and Plan: - vital signs improved markedly - lactic acid now angelita - 30 mL/kg = 3100, given 2L bolus in ED. Continue IV fluids at 125 mL/hour. - suspected source: Perianal abscess - started on Zosyn 3.375 q.6 - blood cultures drawn on 06/23, follow - UA: Trace leuk esterase, otherwise unremarkable - CT abdomen/pelvis showed inflammation around anus and rectum with 7 mm presacral abscess, distal ileal thickening consistent with Crohn's disease Contiue IVF due to diarrhea (2) Perianal abscess: Code(s): K61.0 - Anal abscess Status: Deleted Assessment and Plan: - CT abdomen/pelvis: There is wall thickening of the anus and rectum with surrounding fat stranding. There is a 7 mm presacral abscess. - CT abdomen/pelvis, previous (05/10/2024): Small hypodensity seen near to the left of the anal canal which measures 1.6 x 1.8 cm which may be a small abscess. Unchanged from previous examination. - GI eval noted, awaiting, today Gen surgery evaluated the patient and not surgical intervention is needed - on Zosyn on 06/23 (3) Crohn's disease: Qualifiers: Digestive disease complication type: with abscess Gastrointestinal tract location: unspecified location Qualified Code(s): K50.914 - Crohn's disease, unspecified, with abscess Code(s): K50.90 - Crohn's disease, unspecified, without complications Status: Chronic Assessment and Plan: Continue Prednisone per GI - IV fluids and monitor I&Os - chronic diarrhea with excoriation, petrolatum ointment p.r.n. Prednisone 40mg daily per GI Gi following Plan Patient comfortable at bedside, patient with perianal abscess, noted improvement today Noted she has about 20 to 25 to episodes of diarrhea per day at baseline due to crohn's however she denies any recent exacerbation and no bloody diarrhea, patient is seen by surgery service does not recommend any surgical intervention. will continue and further recommend to follow. However today patient complains of more diarrhea and abdominal cramping, patient is seen by GI and further recommendation to follow. Diet: Heart healthy DVT Prophylaxis: Sq Lovenox Code Status: Full code Subjective Date/time seen: 06/27/24 17:58 Interval history: Patient comfortable at bedside, patient with perianal abscess, noted improvement today Noted she has about 20 to 25 to episodes of diarrhea per day at baseline due to crohn's however she denies any recent exacerbation and no bloody diarrhea, patient is seen by surgery service does not recommend any surgical intervention. will continue and further recommend to follow. However today patient complains of more diarrhea and abdominal cramping, patient is seen by GI and further recommendation to follow. Review of Systems Review of Systems: All systems reviewed & are unremarkable except as noted in HPI and below Exam Narrative: Patient is comfortable, NAD HEENT: eyes are clear and none icteric LUNGS:CTA HEART: RR S1S2 ABD: BS+, Soft and nontender Lower extremities: no edema SKIN: nonjaundiced Neuro: grossly intact. Objective Data Vital Signs Vital Signs: Vital Signs - 24 hr 06/26/24 21:23 06/26/24 20:02 06/26/24 20:02 Temperature 36.2 C L Pulse Rate 88 91 Respiratory Rate 13 Blood Pressure 119/55 L Pulse Oximetry 97 Oxygen Delivery Room Air 06/27/24 00:04 06/27/24 04:01 06/27/24 05:54 Temperature 36.9 C Pulse Rate 84 88 90 Respiratory Rate 14 Blood Pressure 115/61 Pulse Oximetry 99 Oxygen Delivery 06/27/24 08:03 06/27/24 12:00 06/27/24 14:00 [place]
[2024-06-28] VITALS: PULSE 102
[2024-06-28] MEDS: PROCHLORPERAZINE EDISYLATE 10 MG/2 ML VIAL IV PUSH ×2 (01:36→11:18)
[2024-06-28] MEDS: ACETAMINOPHEN 500 MG TABLET 1000 MG PO (01:37)
[2024-06-28 04:00] VITALS: PULSE 90
[2024-06-28 05:40] VITALS: BP 100/64; PULSE 97; RESP 13; TEMP 36.1; O2SAT 98
[2024-06-28 07:45] LABS: Anion Gap 7 mmol/L (4-12); Blood Urea Nitrogen 12 mg/dL (7-17); Calcium 8.6 mg/dL (8.4-10.2); Carbon Dioxide 31 mmol/L (22-30); Chloride 96 mmol/L (98-107); Estimated CRCL calculation 58 ml/min; Estimated Glomerular Filt Rate 56; Glucose 88 mg/dL (65-110); Magnesium 1.8 mg/dL (1.6-2.3); Potassium 3.7 mmol/L (3.4-5.0); Sodium 134 mmol/L (137-145)
[2024-06-28 08:00] VITALS: PULSE 93; O2SAT 98
[2024-06-28 08:16] LABS: Hematocrit 46.8 % (37.0-47.0); Hemoglobin 14.9 g/dL (12.0-15.0); Mean Corpuscular HGB Conc 31.8 g/dl (32-36); Mean Corpuscular Hemoglobin 29.4 pg (26-34); Mean Corpuscular Volume 92.5 fl (80-100); Mean Platelet Volume 8.2 fl (7.4-10.4); Platelet Count Result 233 k/mm3 (150-375); Red Blood Count 5.06 M/mm3 (4.2-5.4); Red Cell Distribution Width 13.4 % (11.5-14.5); White Blood Count 3.5 K/mm3 (4.5-10.0)
[2024-06-28] MEDS: predniSONE 20 MG TABLET 40 MG PO (08:26)
[2024-06-28] MEDS: DOXYCYCLINE HYCLATE 100 MG TABLET PO (08:27)
[2024-06-28] MEDS: AMOXICILLIN/CLAVULANATE K 875-125 MG TAB 1 TABLET PO (08:27)
[2024-06-28] MEDS: ENOXAPARIN 40 MG/0.4 ML SYRINGE SUB-Q (08:27)
[2024-06-28] MEDS: DULoxetine HCL 60 MG CAPSULE.DR PO (08:27)
[2024-06-28 12:00] VITALS: PULSE 99
--- NOTE | 2024-06-28 13:56 | PM.DS ---
DS: Admitting Diagnosis Discharge Date 06/28/24 Admitting Diagnosis abdominal pain DS: Discharge Diagnosis Discharge Diagnosis (1) Sepsis: Qualifiers: Sepsis acute organ dysfunction status: without acute organ dysfunction Sepsis type: sepsis due to unspecified organism Qualified Code(s): A41.9 - Sepsis, unspecified organism Code(s): A41.9 - Sepsis, unspecified organism Status: Acute (2) Crohn's disease: Qualifiers: Digestive disease complication type: with abscess Gastrointestinal tract location: unspecified location Qualified Code(s): K50.914 - Crohn's disease, unspecified, with abscess Code(s): K50.90 - Crohn's disease, unspecified, without complications Status: Chronic (3) Perirectal abscess: Code(s): K61.1 - Rectal abscess Status: Acute DS: Summary Hospital Course Hospital Course: Patient comfortable at bedside, patient with perianal abscess, noted improvement today Noted she has about 20 to 25 to episodes of diarrhea per day at baseline due to crohn's however she denies any recent exacerbation and no bloody diarrhea, patient is seen by surgery service does not recommend any surgical intervention. continued and further recommend to follow. However on 06/27 patient complained of more diarrhea and abdominal cramping, patient was seen by GI and recommended CPM, today patient stats feeling better and number of BM have improved, stats she is ready to go home, her is present in the room. will discharge patient today. Time Spent with Patient Time attestation: Total time spent providing and/or coordinating discharge services: Exam Narrative: Patient is comfortable, NAD HEENT: eyes are clear and none icteric LUNGS:CTA HEART: RR S1S2 ABD: BS+, Soft and nontender Lower extremities: no edema SKIN: nonjaundiced Neuro: grossly intact. DS: Data Data Completed and Pending Labs on day of discharge: Labs from last 24 hours 06/28/24 07:16 WBC 3.5 L RBC 5.06 Hgb 14.9 Hct 46.8 MCV 92.5 MCH 29.4 MCHC 31.8 L RDW 13.4 Plt Count 233 MPV 8.2 Sodium 134 L Potassium 3.7 Chloride 96 L Carbon Dioxide 31 H Anion Gap 7 BUN 12 Creatinine 1.00 Estim Creat Clear Calc 58 Estimated GFR 56 L Glucose 88 Calcium 8.6 Magnesium 1.8 Preliminary micro results at discharge 06/23/24 17:16 Blood Culture - Preliminary Blood 06/23/24 17:08 Blood Culture - Preliminary Blood Discharge Plan Discharge Attending physician on discharge: Raul Velazco Consulting providers: Norberto Gudino; Luisa Dumas; Jarred Maria; Duc Briseno; Obed Kraus V.; Petrona Guillermo; Anselmo Harding Discharging Clinician: Hossein Cutler Patient Disposition: Home, Self-Care Activity: as tolerated Diet: heart healthy Discharge Instructions: patient to follow up Patient Instructions: Antibiotic Form Stand Alone Forms: General Discharge Information Follow-up/Referrals: Brooklynn Pennington NP [Primary Care Provider] - Norberto Gudino MD [Physician] - Discharge Medications: New amoxicillin-pot clavulanate [Augmentin] 500-125 mg tablet 1 tablet PO Q8H Qty: 13 0RF doxycycline hyclate 100 mg capsule 100 mg PO DAILY Qty: 9 0RF white petrolatum Ointment In Packet 1 applic topical PRN PRN (Reason: Irritation Post-Diarrhea) Qty: 60 0RF Continued albuterol sulfate 90 mcg/actuation HFA aerosol inhaler 1 inh inhalation Q4-6H PRN (Reason: shortness of breath or wheezing) Qty: 8.5 1RF duloxetine 60 mg capsule,delayed release(DR/EC) 60 mg PO BID Qty: 60 11RF prochlorperazine maleate [Compazine] 10 mg tablet 10 mg PO Q8H PRN (Reason: Nausea And Vomiting) tizanidine 4 mg tablet 2 - 4 mg PO TID PRN (Reason: muscle spasticity) Qty: 90 3RF prednisone 20 mg tablet 20 mg PO DAILY Qty: 30 4RF simethicone 80 mg tablet,chewable 80 mg PO QID PRN ([place]
== END 2024-06-28 14:50 | disposition home or self-care (01) | DRG 720 ==
LOC: ANHED 12:57 → ANH3MEDSUR 14:33
PROVIDERS: Family Medicine; Internal Medicine; Student in an Organized Health Care Education/Training Program; Admitting Provider Internal Medicine; Emergency Provider Emergency Medicine; PCP Nurse Practitioner Family; Visit Provider Internal Medicine
DX: A41.9 Sepsis, unspecified organism (principal); K50.914 Crohn's disease, unspecified, with abscess; K61.0 Anal abscess; E66.01 Morbid (severe) obesity due to excess calories; M54.50 Low back pain, unspecified; M54.31 Sciatica, right side; M19.90 Unspecified osteoarthritis, unspecified site; G47.33 Obstructive sleep apnea (adult) (pediatric); Z79.52 Long term (current) use of systemic steroids; Z98.1 Arthrodesis status; Z87.891 Personal history of nicotine dependence; Z90.49 Acquired absence of other specified parts of digestive tract; Z68.41 Body mass index [BMI] 40.0-44.9, adult
CPT/HCPCS: 36415; 74177; 80048; 80053; 81001; 83605; 83690; 83735; 84100; 84145; 85025; 85027; 87040; 87493; 93005; 96361; 96365; 96375; 99285; A9270; J0780; J1650; J2270; J2405; J2543; J2919; J7030; J7120; J7512; Q9967

== ENCOUNTER 2024-10-05 13:23 | Inpatient (IN) | payer MEDICARE, SELFPAY ==
--- NOTE | ~2024-10-05 | MR_ITS ---
EXAMINATION: MR pelvis wo/w con DATE: 10/10/2024 11:30 INDICATION: Perianal Crohn disease. TECHNIQUE: Magnetic resonance imaging (MRI) of the pelvis was performed without and with 20 mL MultiH ance intravenous contrast. COMPARISON: CT abdomen and pelvis 10/05/2024 FINDINGS: There is a [id number] anastomosis of the ileum and colon. There is wall thickening of the terminal ileum. No significant stricture. There is wall thickening of the anus and rectum with fat stranding a djacent to the rectum extending to the presacral area. There is physiologic fluid in the pelvis. Ther e is a 2.7 cm intramural fibroid. IMPRESSION: 1. Terminal ileitis, consistent with Crohn disease. 2. 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 No silver inable abscess. Reviewed, dictated and finalized at location A. [facility] VICE PRESIDENT IMPRESSION: 1. Terminal ileitis, consistent with Crohn disease. 2. 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 No drainable abscess.
--- NOTE | ~2024-10-05 | CT_ITS ---
CT abdomen pelvis w con Ordering provider: Cecilia Wang PA-C History: 64 years Female with . rt sided abdominal pain . Comparison: June 23, 2024 Technique: CT abdomen and pelvis with IV and without oral contrast. Automated exposure control and it erative reconstruction technique were employed. The dose-length product was 1041.41 mGy-cm. Findings: VISUALIZED LOWER CHEST: Normal. UPPER ABDOMINAL ORGANS: Liver: Fat infiltration. Hepatomegaly. Gallbladder: Distended gallbladder with no stones. Spleen: Normal. Benign calcifications. Stomach/duodenum: Thickened wall of the stomach which may indicate gastritis. Clinical correlation ad vised.. Pancreas: Normal. Slightly prominent pancreatic duct. Adrenals: Normal. Kidneys: Normal. PELVIC ORGANS: The bladder is underfilled. Uterus: Hypodensity seen in the left side of the uterus which may indicate fibroid. Ultrasound evalua tion advised. BOWEL AND MESENTERY: Colon: No evidence of diverticulitis. Fat stranding seen posterior to the rectum suggestive of inflam matory changes. Fluid containing structure is seen in the right lower quadrant measuring 1.4 x 2.7 cm. No definite in flammatory changes seen around this area.. Postoperative changes are also seen at the same area. Soft tissue density is seen lateral to the anus on the left side. Clinical evaluation advised. Small Bowel: Minimal thickening is seen in the terminal ileum with no significant inflammatory change s. Follow-up advised. No obstruction. Peritoneum/mesentery: No free air or free fluid. No mesenteric lymphadenopathy. Small lymph nodes are seen in the area of the is[place] hepatis. RETROPERITONEUM: Mild atheromatous disease of the abdominal aorta. No retroperitoneal lymphadenopat hy. MUSCULOSKELETAL: Superficial soft tissues: The superficial soft tissues are normal. Bones: Age appropriate degenerative changes of the spine. IMPRESSION: 1. Hepatomegaly with fat infiltration. 2. Inflammatory changes seen anterior to the sacrum and posterior to the rectum. Follow-up and furth er evaluation advised. Possible soft tissue density on the left side of the anus. 3. Soft tissue density in the area of the appendix to the cecum clinical correlation and follow-up a dvised. 4. Possible fibroid in the uterus. Ultrasound evaluation advised. 5. Minimal thickening in the terminal ileum area. Reviewed, dictated and finalized at location A. ILIZATION TECH IMPRESSION: 1. Hepatomegaly with fat infiltration. 2. Inflammatory changes seen anterior to the sacrum and posterior to the rectu m. Follow-up and further evaluation advised. Possible soft tissue density on th e left side of the anus. 3. Soft tissue density in the area of the appendix to the cecum clinical corre lation and follow-up advised. 4. Possible fibroid in the uterus. Ultrasound evaluation advised. 5. Minimal thickening in the terminal ileum area.
[2024-10-05 13:43] VITALS: BP 147/108; PULSE 121; RESP 20; TEMP 36.3; O2SAT 100
--- NOTE | 2024-10-05 13:45 | ED_ITS ---
HPI - Abdominal Pain General Chief Complaint: Abdominal Pain <MOO Blevins Last Filed: 10/05/24 13:46> Stated Complaint: I'm having a crohns attack <Cecilia Wang PA-C - Last Filed: 10/05/24 13:46> Time Seen by Provider: 10/05/24 22:14 <MOO Blevins Last Filed: 10/05/24 13:46> Focused HPI: 64-year-old female with history of Crohn's disease presents to the ED for a ?Crohn's attack?. Patient states she has had vomiting since September 18. States yesterday she began having difficulty keeping down food and fluids which prompted her to come to the ED today. She reports chronic diarrhea secondary to her Crohn's. Also complaining of pain to the right abdomen as well as bladder spasms and concerns for UTI. States it feels like she is peeing glass. Her GI physician is Dr. Gudino. GENERAL: Well-appearing, well-nourished, and in no acute distress. HEAD: Normocephalic, atraumatic. CHEST: Clear to auscultation. ?No respiratory distress. ABD: Tenderness to the right side of the abdomen with voluntary guarding. No rebound or rigidity. HEART: Regular rate and rhythm.? NEURO: ?Alert and oriented x3. Patient screened in triage and initial orders placed.? ?Additional care and disposition to be based upon?diagnostic testing and treatment. <MOO Blevins Last Filed: 10/05/24 13:46> Related Data Home Medications: Home Medications ?Medication ?Instructions ?Recorded ?Confirmed ?Last Taken ?Type simethicone 80 mg chewable tablet 80 mg PO QID PRN Gastric Reflux 05/10/24 06/23/24 Unknown History lidocaine HCl 4 % topical liquid 1 ea topical PRN PRN Pain 06/23/24 06/23/24 Unknown History roll-on (Aspercreme (lidocaine HCl)) <MOO Blevins Last Filed: 10/05/24 13:46> Allergies/Adverse Reactions: Allergies Allergy/AdvReac Type Severity Reaction Status Date / Time cyclobenzaprine Allergy Mild HYPERACTIVI Verified 06/23/24 10:07 TY infliximab (From Remicade) Allergy Mild Hives Verified 06/23/24 10:07 latex Allergy Mild Rash Verified 06/23/24 10:07 lisinopril Allergy Mild cough Verified 06/23/24 10:07 contact metal agent Allergy Hives Verified 06/23/24 10:07 hydrocodone AdvReac Mild N/V Verified 06/23/24 10:07 clindamycin AdvReac Unknown other Verified 06/23/24 10:07 hydromorphone (From Dilaudid) AdvReac Vomiting Verified 06/23/24 10:07 oxycodone AdvReac Nausea and Verified 06/23/24 10:07 Vomiting palm oil Allergy Intermediate Hives Uncoded 06/23/24 10:07 COCONUT Allergy Mild Hives / Uncoded 06/23/24 10:07 Red Face Delodium AdvReac Mild Vomiting Uncoded 06/23/24 10:07 <Cecilia Wang PA-C - Last Filed: 10/05/24 13:46> Review of Systems 2 Review of Systems: CONSTITUTIONAL: Denies fever GASTROINTESTINAL: Reports abdominal pain, nausea, vomiting, and diarrhea. GENITOURINARY: Reports dysuria <Franny Carroll PA-C - Last Filed: 10/06/24 02:37> All systems reviewed & are unremarkable except as noted in HPI and below < Franny Carroll PA-C - Last Filed: 10/06/24 02:37> [facility] Past Medical History Medical History: Medical History (Updated 10/06/24 @ 02:37 by Franny Carroll PA-C) Defecation urgency Vitamin D deficiency Endometrial hyperplasia Depression Kidney stones Crohn's disease C. difficile colitis (11/2023) Osteopenia Cellulitis Fatigue Pain, joint, multiple sites Hypokalemia Yeast infection Skin lesion Allergies Obstructive sleep apnea not on CPAP Hypertension not currently on medication Inflammatory arthritis Hyperlipidemia Obesity Postmenopausal Arthritis Tobacco abuse Incisional hernia without obstruction or gangrene Umbilical hernia Degenerative joint disease <Cecilia Wang PA-C - Last Filed: 10/05/24 13:46> Surgical History Surgical History: Surgical History History of bowel resection History of ankle surgery ORIF right ankle fracture. History of fusion of cervical spine History of hernia repair History of tubal ligation History of right hemicolectomy (2019) History of colonoscopy <Cecilia Wang PA-C - Last Filed: 10/05/24 13:46> Family History Family History: Family History Father Diabetes mellitus Malignant neoplasm of prostate Hypertension Family history of diabetes mellitus in first degree relative Family history of malignant neoplasm of urinary bladder Family history of heart disease in male family member before age 55 Mother Diabetes mellitus Family history of kidney disease Patient's mother is Other Family history of cardiovascular disease <Cecilia Wang PA-C - Last Filed: 10/05/24 13:46> Social History Social History: Social History Social History: Surrogate medical decision maker: Reynold Colbert, spouse. Code status: Full code. Smoking packs per day: 0.5 Smoking cigarettes per day: 10.0 Years smoked: 50 Smoking pack-years: 25.00 Smoking status: Former smoker Second hand tobacco smoke exposure: No Alcohol intake: never Drinks per week: 1 Substance use: never Substance use type: does not use Do You Feel Safe in your Home?: Yes Lack of Transportation: No Lack of Food: Never True Current Housing: I Have Housing Concerned About Future Housing: No Difficulty Paying Gas/Electric Bills: No Difficulty Paying for Meds: No Currently Unemployed: No Education: Trade/Vocational Certificate Difficulty w/ Childcare or Family Care: No Living arrangements: with family Occupation/Education: retired Gender identity (if verbalized by the patient): Female Sexual Orientation (if Verbalized by the Patient): Straight or Heterosexual Spiritual care concerns: No Agree to blood products: Yes <Cecilia Wang PA-C - Last Filed: 10/05/24 13:46> Exam 2 Narrative: GENERAL: Well-appearing, well-nourished, and in no acute distress. HEAD: Normocephalic, atraumatic. EYES: EOMI. ENT: Nares clear, no rhinorrhea or epistaxis. Mucous membranes moist. Oropharynx without tonsillar hypertrophy exudate or other lesions. CHEST: Clear to auscultation. No respiratory distress. No wheezes rales or rhonchi HEART: Regular rate and rhythm. No murmur heard. Normal peripheral pulses. ABDOMEN: Soft, nondistended, normal active bowel sounds. Tender to palpation throughout the abdomen, without guarding EXTREMITIES: Normal range of motion. No edema. SKIN: Warm, dry, no rash. NEURO: No focal deficits. Alert and oriented x3. PSYCH: Normal mood and affect <MOO Garcia Last Filed: 10/06/24 02:37> Course Course Emergency Course: patient updated on her workup and recommendation for admission <MOO Garcia Last Filed: 10/06/24 02:37> Consultations Consultation #1: Spoke with hospitalist about patient and workup who accepts admission. < MOO Garcia Last Filed: 10/06/24 02:37> Date: 10/06/24 <MOO Garcia Last Filed: 10/06/24 02:37> Vital Signs Vital signs: Vital Signs Temperature 97.3 F L 10/05/24 13:43 Pulse Rate 121 H 10/05/24 13:43 Respiratory Rate 20 10/05/24 13:43 Blood Pressure 147/108 H 10/05/24 13:43 Pulse Oximetry 100 10/05/24 13:43 Oxygen Delivery Room Air 10/05/24 13:43 Temperature 98.1 F 10/06/24 01:06 Pulse Rate 104 H 10/06/24 01:06 Respiratory Rate 17 10/06/24 01:06 Blood Pressure 124/56 L 10/06/24 01:06 Pulse Oximetry 95 10/06/24 01:06 Oxygen Delivery Room Air 10/05/24 13:43 <MOO Blevins Last Filed: 10/05/24 13:46> Vital Signs Temperature 97.3 F L 10/05/24 13:43 Pulse Rate 121 H 10/05/24 13:43 Respiratory Rate 20 10/05/24 13:43 Blood Pressure 147/108 H 10/05/24 13:43 Pulse Oximetry 100 10/05/24 13:43 Oxygen Delivery Room Air 10/05/24 13:43 Temperature 98.1 F 10/06/24 01:06 Pulse Rate 104 H 10/06/24 01:06 Respiratory Rate 17 10/06/24 01:06 Blood Pressure 124/56 L 10/06/24 01:06 Pulse Oximetry 95 10/06/24 01:06 Oxygen Delivery Room Air 10/05/24 13:43 <Franny Carroll PA-C - Last Filed: 10/06/24 02:37> MDM - Abdominal Pain MDM Narrative Medical decision making narrative: patient presents the emergency department for abdominal pain, vomiting and diarrhea. History of Crohn's disease. Not currently on any medications. She is afebrile and nontoxic appearing. Tachycardic upon arrival, this did respond to IV fluids. Cbc without leukocytosis. Metabolic panel with mild hypokalemia. Urine without evidence of infection. CT abdomen pelvis shows inflammatory changes around the rectum. Also inflammation in the terminal ileum. patient updated on her workup and recommendation for admission. Spoke with hospitalist about patient and workup who accepts admission. Will put in consult for GI <MOO Garcia Last Filed: 10/06/24 02:37> Differential Diagnosis Differential diagnosis: Likely calculus of kidney, diverticulitis, gastroenteritis and other (IBD) <MOO Garcia Last Filed: 10/06/24 02:37> Lab Data Attestation: I reviewed the patient's lab results. <MOO Garcia Last Filed: 10/06/24 02:37> Result diagrams: 10/05/24 22:23 10/05/24 22:23 <MOO Blevins Last Filed: 10/05/24 13:46> Labs: Lab Results 10/05/24 10/05/24 Range/Units 22:11 22:23 WBC 8.6 (4.5-10.0) K/mm3 RBC 4.82 (4.2-5.4) M/mm3 Hgb 14.1 (12.0-15.0) g/dL Hct 42.6 (37.0-47.0) % MCV 88.4 (80-100) fl MCH 29.3 (26-34) pg MCHC 33.1 (32-36) g/dl RDW 13.1 (11.5-14.5) % Plt Count 410 H D (150-375) k/mm3 MPV 8.2 (7.4-10.4) fl Immature Gran % (Auto) 0.2 (0-0.5) % Neut % (Auto) 67.2 (45.5-73.1) % Lymph % (Auto) 23.6 (18.3-44.2) % Wood % (Auto) 6.8 (2.6-8.5) % Eos % (Auto) 1.4 (0-4.4) % Baso % (Auto) 0.8 (0.2-1.2) % Lymph # (Auto) 2.02 (0.9-3.2) K/mm3 Wood # (Auto) 0.6 (0.1-0.6) K/mm3 Eos # (Auto) 0.1 (0-0.3) K/mm3 Baso # (Auto) 0.1 (0.0-0.1) K/mm3 Abs Immat Gran (auto) 0.02 (0.00-0.031) K/mm3 Absolute Neuts (auto) 5.7 (1.3-6.7) K/mm3 Absolute Nucleated RBC 0.000 (0.0-0.012) K/mm3 Nucleated RBC % 0.0 (0.0-0.2) % Sodium 137 (137-145) mmol/L Potassium 2.9 L (3.4-5.0) mmol/L Chloride 103 (98-107) mmol/L Carbon Dioxide 29 (22-30) mmol/L Anion Gap 5 (4-12) mmol/L BUN 8 (7-17) mg/dL Creatinine 0.80 (0.7-1.0) mg/dL Estim Creat Clear Calc 68 ml/min Estimated GFR > 60 (59 - ) Glucose 118 H (65-110) mg/dL Calcium 8.8 (8.4-10.2) mg/dL Magnesium 2.0 (1.6-2.3) mg/dL Total Bilirubin 0.7 (0.2-1.3) mg/dL AST 47 H (14-36) U/L ALT 20 (6-35) U/L Alkaline Phosphatase 198 H (38-126) U/L Total Protein 7.0 (6.3-8.2) g/dL Albumin 3.5 (3.5-5.1) g/dL Lipase 48 (23-300) U/L Urine Color Yellow (Yellow) Urine Appearance Clear (Clear) Urine pH 6.5 (5.0-9.0) Ur Specific [place] 1.013 (1.001-1.035) Urine Protein Negative (Negative) mg/dL Urine Glucose (UA) Negative (Negative) mg/dL Urine Ketones Trace H (Negative) mg/dL Ur Blood (Man) Negative (Negative) Urine Nitrate Negative (Negative) Urine Bilirubin Negative (Negative) Urine Urobilinogen 1.0 (<2.0) mg/dL Leukocyte Esterase Rfl Negative (Negative) PERLA/UL Influenza A (RT-PCR) Negative (Negative) Influenza B (RT-PCR) Negative (Negative) RSV (RT-PCR) Negative (Negative) SARS-CoV-2 RNA (RT-PCR) Negative (Negative) <Cecilia Wang PA-C - Last Filed: 10/05/24 13:46> Lab Results 10/05/24 10/05/24 Range/Units 22:11 22:23 WBC 8.6 (4.5-10.0) K/mm3 RBC 4.82 (4.2-5.4) M/mm3 Hgb 14.1 (12.0-15.0) g/dL Hct 42.6 (37.0-47.0) % MCV 88.4 (80-100) fl MCH 29.3 (26-34) pg MCHC 33.1 (32-36) g/dl RDW 13.1 (11.5-14.5) % Plt Count 410 H D (150-375) k/mm3 MPV 8.2 (7.4-10.4) fl Immature Gran % (Auto) 0.2 (0-0.5) % Neut % (Auto) 67.2 (45.5-73.1) % Lymph % (Auto) 23.6 (18.3-44.2) % Wood % (Auto) 6.8 (2.6-8.5) % Eos % (Auto) 1.4 (0-4.4) % Baso % (Auto) 0.8 (0.2-1.2) % Lymph # (Auto) 2.02 (0.9-3.2) K/mm3 Wood # (Auto) 0.6 (0.1-0.6) K/mm3 Eos # (Auto) 0.1 (0-0.3) K/mm3 Baso # (Auto) 0.1 (0.0-0.1) K/mm3 Abs Immat Gran (auto) 0.02 (0.00-0.031) K/mm3 Absolute Neuts (auto) 5.7 (1.3-6.7) K/mm3 Absolute Nucleated RBC 0.000 (0.0-0.012) K/mm3 Nucleated RBC % 0.0 (0.0-0.2) % Sodium 137 (137-145) mmol/L Potassium 2.9 L (3.4-5.0) mmol/L Chloride 103 (98-107) mmol/L Carbon Dioxide 29 (22-30) mmol/L Anion Gap 5 (4-12) mmol/L BUN 8 (7-17) mg/dL Creatinine 0.80 (0.7-1.0) mg/dL Estim Creat Clear Calc 68 ml/min Estimated GFR > 60 (59 - ) Glucose 118 H (65-110) mg/dL Calcium 8.8 (8.4-10.2) mg/dL Magnesium 2.0 (1.6-2.3) mg/dL Total Bilirubin 0.7 (0.2-1.3) mg/dL AST 47 H (14-36) U/L ALT 20 (6-35) U/L Alkaline Phosphatase 198 H (38-126) U/L Total Protein 7.0 (6.3-8.2) g/dL Albumin 3.5 (3.5-5.1) g/dL Lipase 48 (23-300) U/L Urine Color Yellow (Yellow) Urine Appearance Clear (Clear) Urine pH 6.5 (5.0-9.0) Ur Specific [place] 1.013 (1.001-1.035) Urine Protein Negative (Negative) mg/dL Urine Glucose (UA) Negative (Negative) mg/dL Urine Ketones Trace H (Negative) mg/dL Ur Blood (Man) Negative (Negative) Urine Nitrate Negative (Negative) Urine Bilirubin Negative (Negative) Urine Urobilinogen 1.0 (<2.0) mg/dL Leukocyte Esterase Rfl Negative (Negative) PERLA/UL Influenza A (RT-PCR) Negative (Negative) Influenza B (RT-PCR) Negative (Negative) RSV (RT-PCR) Negative (Negative) SARS-CoV-2 RNA (RT-PCR) Negative (Negative) <MOO Garcia Last Filed: 10/06/24 02:37> Imaging Data Radiologist's impression: ITS Impressions Abdomen/Pelvis CT 10/05/24 23:48 IMPRESSION: 1. Hepatomegaly with fat infiltration. 2. Inflammatory changes seen anterior to the sacrum and posterior to the rectum. Follow-up and further evaluation advised. Possible soft tissue density on the left side of the anus. 3. Soft tissue density in the area of the appendix to the cecum clinical correlation and follow-up advised. 4. Possible fibroid in the uterus. Ultrasound evaluation advised. 5. Minimal thickening in the terminal ileum area. <MOO Blevins Last Filed: 10/05/24 13:46> ITS Impressions Abdomen/Pelvis CT 10/05/24 23:48 IMPRESSION: 1. Hepatomegaly with fat infiltration. 2. Inflammatory changes seen anterior to the sacrum and posterior to the rectum. Follow-up and further evaluation advised. Possible soft tissue density on the left side of the anus. 3. Soft tissue density in the area of the appendix to the cecum clinical correlation and follow-up advised. 4. Possible fibroid in the uterus. Ultrasound evaluation advised. 5. Minimal thickening in the terminal ileum area. <Franny Carroll PA-C - Last Filed: 10/06/24 02:37> Critical Care Time Critical Care Time Critical Care Time: No <Franny Carroll PA-C - Last Filed: 10/06/24 02:37> Discharge Plan Discharge Clinical Impression: Hypokalemia Acute Crohn's disease Qualifiers: Digestive disease complication type: unspecified complication Qualified Code(s): K50.919 - Crohn's disease, unspecified, with unspecified complications <MOO Blevins Last Filed: 10/05/24 13:46> Patient Disposition: Still a Patient <MOO Blevins Last Filed: 10/05/24 13:46> Condition: Improved <Cecilia Wang PA-C - Last Filed: 10/05/24 13:46> Instructions: Antibiotic Form <MOO Blevins Last Filed: 10/05/24 13:46> Patient Language: Occitan <Cecilia Wang PA-C - Last Filed: 10/05/24 13:46> Prescriptions: No Action albuterol sulfate 90 mcg/actuation HFA aerosol inhaler 1 inh inhalation Q4-6H PRN (Reason: shortness of breath or wheezing) Qty: 8.5 1RF duloxetine 60 mg capsule,delayed release(DR/EC) 60 mg PO BID Qty: 60 11RF tizanidine 4 mg tablet 2 - 4 mg PO TID PRN (Reason: muscle spasticity) Qty: 90 3RF prednisone 20 mg tablet 20 mg PO DAILY Qty: 30 4RF simethicone 80 mg tablet,chewable 80 mg PO QID PRN (Reason: Gastric Reflux) lidocaine HCl [Aspercreme (lidocaine HCl)] 4 % Liquid Roll-On 1 ea TOPICAL PRN PRN (Reason: Pain) amoxicillin-pot clavulanate [Augmentin] 500-125 mg tablet 1 tablet PO Q8H Qty: 13 0RF doxycycline hyclate 100 mg capsule 100 mg PO DAILY Qty: 9 0RF white petrolatum Ointment In Packet 1 applic topical PRN PRN (Reason: Irritation Post-Diarrhea) Qty: 60 0RF prochlorperazine maleate [Compazine] 10 mg tablet 10 mg PO Q8H PRN (Reason: Nausea And Vomiting) Qty: 30 0RF <Cecilia Wang PA-C - Last Filed: 10/05/24 13:46> Follow-up/Referrals: Brooklynn Pennington NP [Primary Care Provider] - <Cecilia Wang PA-C - Last Filed: 10/05/24 13:46>
[2024-10-05 19:11] VITALS: BP 145/94; PULSE 115; RESP 16; TEMP 36.8; O2SAT 100
[2024-10-05 22:17] LABS: Add Urine Microscopic? NO; Appearance Urine Clear (Clear); Bilirubin Urine Negative (Negative); Blood Urine Negative (Negative); Color Urine Yellow (Yellow); Glucose Urine UA Negative (Negative); Ketones Urine Trace mg/dL (Negative); Leukocyte Esterase Ur Negative LEU/UL (Negative); Nitrate Urine Negative (Negative); Protein Urine Negative (Negative); Specific Grav Ur 1.013 (1.001-1.035); pH Urine 6.5 (5.0-9.0)
[2024-10-05 22:30] LABS: Basophils Absolute Auto 0.1 K/mm3 (0.0-0.1); Basophils Percent Auto 0.8 % (0.2-1.2); Eosinophils Absolute Auto 0.1 K/mm3 (0-0.3); Eosinophils Percent Auto 1.4 % (0-4.4); Hematocrit 42.6 % (37.0-47.0); Hemoglobin 14.1 g/dL (12.0-15.0); Immature Granulocyte Absolute 0.02 K/mm3 (0.00-0.031); Immature Granulocyte Percent A 0.2 % (0-0.5); Lymphocytes Absolute Auto 2.02 K/mm3 (0.9-3.2); Lymphocytes Percent Auto 23.6 % (18.3-44.2); Mean Corpuscular HGB Conc 33.1 g/dl (32-36); Mean Corpuscular Hemoglobin 29.3 pg (26-34); Mean Corpuscular Volume 88.4 fl (80-100); Mean Platelet Volume 8.2 fl (7.4-10.4); Monocytes Absolute Auto 0.6 K/mm3 (0.1-0.6); Monocytes Percent Auto 6.8 % (2.6-8.5); Neutrophils Absolute Auto 5.7 K/mm3 (1.3-6.7); Neutrophils Percent Auto 67.2 % (45.5-73.1); Platelet Count Result 410 k/mm3 (150-375); Red Blood Count 4.82 M/mm3 (4.2-5.4); Red Cell Distribution Width 13.1 % (11.5-14.5); White Blood Count 8.6 K/mm3 (4.5-10.0)
[2024-10-05 22:41] LABS: Alanine Aminotransferase 20 U/L (6-35); Albumin Level 3.5 g/dL (3.5-5.1); Alkaline Phosphatase 198 U/L (38-126); Anion Gap 5 mmol/L (4-12); Aspartate Amino Transferase 47 U/L (14-36); Bilirubin,Total 0.7 mg/dL (0.2-1.3); Blood Urea Nitrogen 8 mg/dL (7-17); Calcium 8.8 mg/dL (8.4-10.2); Carbon Dioxide 29 mmol/L (22-30); Chloride 103 mmol/L (98-107); Estimated CRCL calculation 68 ml/min; Estimated Glomerular Filt Rate > 60; Glucose 118 mg/dL (65-110); Lipase 48 U/L (23-300); Potassium 2.9 mmol/L (3.4-5.0); Sodium 137 mmol/L (137-145)
[2024-10-05 22:52] LABS: Influenza A QL RT-PCR Negative (Negative); Influenza B QL RT-PCR Negative (Negative); RSV RNA, RT-PCR Negative (Negative); SARS-CoV-2 RNA PCR Negative (Negative)
[2024-10-05] MEDS: ONDANSETRON INJ 4 MG/2 ML VIAL IV PUSH (23:06)
[2024-10-05] MEDS: SODIUM CHLORIDE 0.9% IV 1,000 ML 999 ML IV CONT (23:06)
[2024-10-05] MEDS: MORPHINE SULFATE (*CRX) 4 MG/ML INJ IV PUSH (23:07)
[2024-10-05 23:09] VITALS: BP 122/77; PULSE 111; RESP 20; TEMP 36.6; O2SAT 99
[2024-10-05 23:53] VITALS: BP 141/66; PULSE 94; RESP 16; TEMP 36.6; O2SAT 100
[2024-10-06] MEDS: POTASSIUM CHLORIDE INJ 40 MEQ in SODIUM CHLORIDE 0.9% IV 500 ML 130 MEQ IVPB ×2 (00:42→12:05)
[2024-10-06] MEDS: SODIUM CHLORIDE 0.9% IV 1,000 ML 999 ML IV CONT (00:47)
[2024-10-06] MEDS: MORPHINE SULFATE (*CRX) 4 MG/ML INJ IV PUSH ×3 (01:05→23:25)
[2024-10-06 01:06] VITALS: BP 124/56; PULSE 104; RESP 17; TEMP 36.7; O2SAT 95
[2024-10-06] MEDS: methylPREDNISolone SOD SUCC 40 MG VIAL IV PUSH (01:48)
[2024-10-06] MEDS: SODIUM CHLORIDE 0.9% IV 1,000 ML 125 ML IV CONT ×3 (02:39→21:12)
[2024-10-06 03:24] VITALS: BP 113/60; PULSE 95; RESP 16; TEMP 36.7; O2SAT 97
--- NOTE | 2024-10-06 04:00 | ADMGEN ---
This patient, Saira Colbert, was admitted to Medical Room 341-01. Patient/family oriented to hospital policies and general routines including ID bracelet, bed and alarms, visiting hours, pain management, procedures, bathroom and other care routines, personal items, smoking policy, room service/diet, and visiting hours. Information on how to activate the Rapid Response Team has been discussed. Patient/Family are encouraged to report perceived risks to care and to ask questions if they do not understand what they are told or what they should do.
[2024-10-06 04:04] VITALS: BMI 39.5
[2024-10-06 04:05] VITALS: BP 138/73; PULSE 89; RESP 16; TEMP 36.1; O2SAT 97
[2024-10-06] MEDS: ONDANSETRON INJ 4 MG/2 ML VIAL IV PUSH ×3 (04:48→12:08)
[2024-10-06] MEDS: predniSONE 20 MG TABLET 40 MG PO (12:05)
[2024-10-06] MEDS: DULoxetine HCL 60 MG CAPSULE.DR PO ×2 (12:08→21:10)
[2024-10-06 12:19] LABS: Hematocrit 38.6 % (37.0-47.0); Hemoglobin 12.5 g/dL (12.0-15.0); Mean Corpuscular HGB Conc 32.4 g/dl (32-36); Mean Corpuscular Hemoglobin 29.4 pg (26-34); Mean Corpuscular Volume 90.8 fl (80-100); Mean Platelet Volume 8.2 fl (7.4-10.4); Platelet Count Result 356 k/mm3 (150-375); Red Blood Count 4.25 M/mm3 (4.2-5.4); Red Cell Distribution Width 13.3 % (11.5-14.5); White Blood Count 5.7 K/mm3 (4.5-10.0)
[2024-10-06 12:32] LABS: Anion Gap 1 mmol/L (4-12); Blood Urea Nitrogen 7 mg/dL (7-17); CRP 2.3 mg/dL (<1.0); Calcium 8.2 mg/dL (8.4-10.2); Carbon Dioxide 26 mmol/L (22-30); Chloride 111 mmol/L (98-107); Estimated CRCL calculation 77 ml/min; Estimated Glomerular Filt Rate > 60; Glucose 158 mg/dL (65-110); Potassium 4.1 mmol/L (3.4-5.0); Sodium 138 mmol/L (137-145)
[2024-10-06 13:08] LABS: Hepatitis B Surface Antigen Negative (Negative)
[2024-10-06 13:14] LABS: HAV RESULT Negative (Negative); Hepatitis B Core IgM Result Negative (Negative)
--- NOTE | 2024-10-06 13:18 | P.CONGI_ITS ---
Assessment and Plan Assessment and plan (1) Acute Crohn's disease: Qualifiers: Digestive disease complication type: unspecified complication Qualified Code(s): K50.919 - Crohn's disease, unspecified, with unspecified complications Code(s): K50.90 - Crohn's disease, unspecified, without complications Status: Acute (2) Hypokalemia: Code(s): E87.6 - Hypokalemia Status: Acute (3) Obesity, morbid, BMI 40.0-49.9: Code(s): E66.01 - Morbid (severe) obesity due to excess calories Status: Acute (4) Crohn's disease: Qualifiers: Digestive disease complication type: with abscess Gastrointestinal tract location: unspecified location Qualified Code(s): K50.914 - Crohn's disease, unspecified, with abscess Code(s): K50.90 - Crohn's disease, unspecified, without complications Status: Chronic Plan discussed with the patient in detail patient has tried different medications for Crohn's and according to her those medicines do not work currently she is sort of excited to start a new medication Skyrizi this month. at this time recommendations will be advanced diet as tolerated nausea vomiting symptomatic control stool studies to rule out infectious element Cipro and Flagyl for 7 to 10 days will keep the patient on Solu-Medrol IV as according to her she could not take the p.o. prednisone because of nausea vomiting will check a CRP and the labs strict intake output I also discussed with her as she has tried different medications without improvement I would also advise patient to see a inflammatory bowel disease center at [facility] . Patient seen covering for the regular GI who will resume patient care on Tuesday GI Consult Note Consult date/time: 10/06/24 13:18 Reason for consult: Crohn's flare HPI: Saira Colbert is a 64 year old female who has history of Crohn's disease for 10 to 15 years. According to her she has tried different medications including Remicade Humira and according to her in between she lost her insurance and she was off Humira but now she got some coverage and she is planning to start Skyrizi this month. According to her she had several flares of Crohn's and the medicines did not work currently she came to the hospital because of nausea vomiting and diarrhea according to her she always have problems with chronic diarrhea but this has been getting worse and according to her she has 20 to 25 loose watery stool denies any blood in the stool. 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 Patient records were reviewed the patient currently appears to be stable does have some abdominal discomfort in the right side of the abdomen. Patient labs as well as CT scan was reviewed Review of Systems 2 Constitutional: Constitutional: Denies chills, Denies fatigue, Denies fever(s), Denies headache(s), Denies malaise, Denies weight gain and Denies weight loss Eyes: Eyes: Denies change in vision ENT: Denies dizziness, Denies headache(s) and Reports other (No change in hearing) Cardiovascular: Cardiovascular: Denies chest pain, Denies dyspnea and Reports other (denies palpitations, denies orthopnea) Respiratory: Respiratory: Denies cough, Denies dyspnea and Reports other (denies sputum production, denies hemoptysis) Gastrointestinal: Gastrointestinal: Reports as per HPI Genitourinary: Genitourinary: Denies hematuria, Denies dysuria and Denies urinary incontinence Musculoskeletal: Musculoskeletal: Reports other (denies extremity edema, denies myalgia) Integumentary/Breasts: Skin/Breast: Denies new lesions and Denies rash Neurologic: Denies dizziness, Denies headache(s) and Denies seizure-like activity Endocrine: Endocrine: Denies fatigue Hematologic/Lymphatic: Hematologic/Lymphatic: Denies easy bleeding and Denies easy bruising PMFSH Past Medical History Medical History (Updated 10/06/24 @ 02:37 by Franny Carroll PA-C) Defecation urgency Vitamin D deficiency Endometrial hyperplasia Depression Kidney stones Crohn's disease C. difficile colitis (11/2023) Osteopenia Cellulitis Fatigue Pain, joint, multiple sites Hypokalemia Yeast infection Skin lesion Allergies Obstructive sleep apnea not on CPAP Hypertension not currently on medication Inflammatory arthritis Hyperlipidemia Obesity Postmenopausal Arthritis Tobacco abuse Incisional hernia without obstruction or gangrene Umbilical hernia Degenerative joint disease Surgical History Surgical History History of bowel resection History of ankle surgery ORIF right ankle fracture. History of fusion of cervical spine History of hernia repair History of tubal ligation History of right hemicolectomy (2019) History of colonoscopy Family History Family History Father Diabetes mellitus Malignant neoplasm of prostate Hypertension Family history of diabetes mellitus in first degree relative Family history of malignant neoplasm of urinary bladder Family history of heart disease in male family member before age 55 Mother Diabetes mellitus Family history of kidney disease Patient's mother is Other Family history of cardiovascular disease Social History Social History Social History: Surrogate medical decision maker: Reynold Colbert, spouse. Code status: Full code. Smoking packs per day: 0.5 Smoking cigarettes per day: 10.0 Years smoked: 50 Smoking pack-years: 25.00 Smoking status: Former smoker Second hand tobacco smoke exposure: No Alcohol intake: current Drinks per week: 1 Substance use: never Substance use type: does not use Do You Feel Safe in your Home?: Yes Lack of Transportation: No Lack of Food: Never True Current Housing: I Have Housing Concerned About Future Housing: No Difficulty Paying Gas/Electric Bills: No Difficulty Paying for Meds: No Currently Unemployed: No Education: Decline to Answer Difficulty w/ Childcare or Family Care: No Living arrangements: with family Occupation/Education: retired Gender identity (if verbalized by the patient): Female Sexual Orientation (if Verbalized by the Patient): Straight or Heterosexual Spiritual care concerns: No Agree to blood products: Yes Meds Home Medications and Allergies Home Medications ?Medication ?Instructions ?Recorded ?Confirmed ?Type albuterol sulfate 90 mcg/actuation 1 inh inhalation Q4-6H PRN 03/07/24 10/06/24 Rx aerosol inhaler shortness of breath or wheezing #8.5 grams duloxetine 60 mg capsule,delayed 60 mg PO BID #60 caps 03/07/24 10/06/24 Rx release simethicone 80 mg chewable tablet 80 mg PO QID PRN Gastric Reflux 05/10/24 10/06/24 History tizanidine 4 mg tablet 2 - 4 mg (0.5 - 1 x 4 mg) PO TID 05/15/24 10/06/24 Rx PRN muscle spasticity #90 tabs prednisone 20 mg tablet 20 mg PO DAILY #30 tabs 05/31/24 10/06/24 Rx lidocaine HCl 4 % topical liquid 1 ea topical PRN PRN Pain 06/23/24 10/06/24 History roll-on (Aspercreme (lidocaine HCl)) prochlorperazine maleate 10 mg 10 mg PO Q8H PRN Nausea And 08/03/24 10/06/24 Rx tablet (Compazine) Vomiting #30 tabs Allergies Allergy/AdvReac Type Severity Reaction Status Date / Time cyclobenzaprine Allergy Mild HYPERACTIVI Verified 06/23/24 10:07 TY infliximab (From Remicade) Allergy Mild Hives Verified 06/23/24 10:07 latex Allergy Mild Rash Verified 06/23/24 10:07 lisinopril Allergy Mild cough Verified 06/23/24 10:07 contact metal agent Allergy Hives Verified 06/23/24 10:07 hydrocodone AdvReac Mild N/V Verified 06/23/24 10:07 clindamycin AdvReac Unknown other Verified 06/23/24 10:07 hydromorphone (From Dilaudid) AdvReac Vomiting Verified 06/23/24 10:07 oxycodone AdvReac Nausea and Verified 06/23/24 10:07 Vomiting palm oil Allergy Intermediate Hives Uncoded 06/23/24 10:07 COCONUT Allergy Mild Hives / Uncoded 06/23/24 10:07 Red Face Delodium AdvReac Mild Vomiting Uncoded 06/23/24 10:07 Vital Signs Vital Signs - 24 hr 10/05/24 13:43 10/05/24 19:11 10/05/24 23:09 Temperature 97.3 F L 98.2 F 97.9 F Pulse Rate 121 H 115 H 111 H Respiratory Rate 20 16 20 Blood Pressure 147/108 H 145/94 H 122/77 Pulse Oximetry 100 100 99 Oxygen Delivery Room Air 10/05/24 23:53 10/06/24 01:06 10/06/24 03:24 Temperature 97.9 F 98.1 F 98.1 F Pulse Rate 94 104 H 95 Respiratory Rate 16 17 16 Blood Pressure 141/66 H 124/56 L 113/60 Pulse Oximetry 100 95 97 Oxygen Delivery 10/06/24 04:05 10/06/24 05:43 10/06/24 08:00 Temperature 97 F L Pulse Rate 89 Respiratory Rate 16 Blood Pressure 138/73 Pulse Oximetry 97 Oxygen Delivery Room Air Room Air Exam 2 Const: General: cooperative; No acute distress Orientation/consciousness: p atient oriented x3 HENMT: Head: normal to inspection Neck: Neck: supple Resp: Auscultation: clear to auscultation bilaterally Cardio: Rate: regular rate Rhythm: regular rhythm GI: Inspection: non-distended GI Palp: Yes Soft to palpation, No Tenderness to palpation present (GI) and No Palpable mass present Auscultation: normal bowel sounds Rectal Exam: deferred Skin: General skin exam: no rashes or lesions noted Neuro: General: patient oriented x3 Extrem: General: no edema Results Labs 10/06/24 12:11 10/06/24 12:11 Labs: Short CBC 10/05/24 10/06/24 Range/Units 22:23 12:11 WBC 8.6 5.7 (4.5-10.0) K/mm3 Hgb 14.1 12.5 (12.0-15.0) g/dL Hct 42.6 38.6 (37.0-47.0) % Plt Count 410 H D 356 (150-375) k/mm3 BMP 10/05/24 10/06/24 22:23 12:11 Sodium 137 138 Potassium 2.9 L 4.1 Chloride 103 111 H Carbon Dioxide 29 26 BUN 8 7 Creatinine 0.80 0.70 Glucose 118 H 158 H Calcium 8.8 8.2 L Liver Function 10/05/24 Range/Units 22:23 Total Bilirubin 0.7 (0.2-1.3) mg/dL AST 47 H (14-36) U/L ALT 20 (6-35) U/L Alkaline Phosphatase 198 H (38-126) U/L Albumin 3.5 (3.5-5.1) g/dL Urine 10/05/24 Range/Units 22:11 Urine Color Yellow (Yellow) Urine Appearance Clear (Clear) Urine pH 6.5 (5.0-9.0) Ur Specific [place] 1.013 (1.001-1.035) Urine Protein Negative (Negative) mg/dL Urine Glucose (UA) Negative (Negative) mg/dL
[2024-10-06 13:26] LABS: Hepatitis C Virus Antibody Negative (Negative)
[2024-10-06 14:00] VITALS: BP 125/75; PULSE 84; RESP 16; TEMP 36.7; O2SAT 99
--- NOTE | 2024-10-06 14:14 | PC.NURSE ---
Potassium Chloride IVPB currently infusing. Flagyl dose scheduled at 1400 delayed until Potassium is completed.
--- NOTE | 2024-10-06 15:30 | P.HP_ITS ---
H&P: HPI History of Present Illness Date/Time: 10/06/24 15:30 Chief Complaint: Crohn's flare up/ abdominal pain Narrative: patient is a 64-year-old female who presented to the emergency department with complaints Crohn's flare up in severe abdominal pain. patient states symptoms began back on September 18 and she was prescribed Compazine and recommended to continue liquid diet however patient reports today the pain had become too severe she came to the emergency department since she has had nonstop nausea vomiting. Patient also reported difficulty with urination including burning sensation and frequency. patient denied any chest pain, shortness a breath, fever or chills does report she is still having bowel movements and passing gas with no blood in stool. patient with past medical history of GREGORIA, hypertension, HLD, Crohn's disease with previous hemicolectomy in bowel resection. patient's labs reviewed unremarkable other than elevated CRP of 2.4 in urine with no evidence of UTI. CT abdomen did show inflammatory changes at the anterior to the sacrum and posterior to the rectum, and minimal thickening of the terminal ileum area. [facility] acute on chronic Crohn's disease with consult to GI for further recommendations Review of Systems Review of Systems: All systems reviewed & are unremarkable except as noted in HPI and below PMFSH Past Medical History Medical History Defecation urgency Vitamin D deficiency Endometrial hyperplasia Depression Kidney stones Crohn's disease C. difficile colitis (11/2023) Osteopenia Cellulitis Fatigue Pain, joint, multiple sites Hypokalemia Yeast infection Skin lesion Allergies Obstructive sleep apnea not on CPAP Hypertension not currently on medication Inflammatory arthritis Hyperlipidemia Obesity Postmenopausal Arthritis Tobacco abuse Incisional hernia without obstruction or gangrene Umbilical hernia Degenerative joint disease Surgical History Surgical History History of bowel resection History of ankle surgery ORIF right ankle fracture. History of fusion of cervical spine History of hernia repair History of tubal ligation History of right hemicolectomy (2019) History of colonoscopy Family History Family History Father Diabetes mellitus Malignant neoplasm of prostate Hypertension Family history of diabetes mellitus in first degree relative Family history of malignant neoplasm of urinary bladder Family history of heart disease in male family member before age 55 Mother Diabetes mellitus Family history of kidney disease Patient's mother is Other Family history of cardiovascular disease Social History Social History Social History: Surrogate medical decision maker: Reynold Colbert, spouse. Code status: Full code. Smoking packs per day: 0.5 Smoking cigarettes per day: 10.0 Years smoked: 50 Smoking pack-years: 25.00 Smoking status: Former smoker Second hand tobacco smoke exposure: No Alcohol intake: current Drinks per week: 1 Substance use: never Substance use type: does not use Do You Feel Safe in your Home?: Yes Lack of Transportation: No Lack of Food: Never True Current Housing: I Have Housing Concerned About Future Housing: No Difficulty Paying Gas/Electric Bills: No Difficulty Paying for Meds: No Currently Unemployed: No Education: Decline to Answer Difficulty w/ Childcare or Family Care: No Living arrangements: with family Occupation/Education: retired Gender identity (if verbalized by the patient): Female Sexual Orientation (if Verbalized by the Patient): Straight or Heterosexual Spiritual care concerns: No Agree to blood products: Yes Meds Home Medications and Allergies Home Medications ?Medication ?Instructions ?Recorded ?Confirmed ?Type albuterol sulfate 90 mcg/actuation 1 inh inhalation Q4-6H PRN 03/07/24 10/06/24 Rx aerosol inhaler shortness of breath or wheezing #8.5 grams duloxetine 60 mg capsule,delayed 60 mg PO BID #60 caps 03/07/24 10/06/24 Rx release simethicone 80 mg chewable tablet 80 mg PO QID PRN Gastric Reflux 05/10/24 10/06/24 History tizanidine 4 mg tablet 2 - 4 mg (0.5 - 1 x 4 mg) PO TID 05/15/24 10/06/24 Rx PRN muscle spasticity #90 tabs prednisone 20 mg tablet 20 mg PO DAILY #30 tabs 05/31/24 10/06/24 Rx lidocaine HCl 4 % topical liquid 1 ea topical PRN PRN Pain 06/23/24 10/06/24 History roll-on (Aspercreme (lidocaine HCl)) prochlorperazine maleate 10 mg 10 mg PO Q8H PRN Nausea And 08/03/24 10/06/24 Rx tablet (Compazine) Vomiting #30 tabs Allergies Allergy/AdvReac Type Severity Reaction Status Date / Time cyclobenzaprine Allergy Mild HYPERACTIVI Verified 06/23/24 10:07 TY infliximab (From Remicade) Allergy Mild Hives Verified 06/23/24 10:07 latex Allergy Mild Rash Verified 06/23/24 10:07 lisinopril Allergy Mild cough Verified 06/23/24 10:07 contact metal agent Allergy Hives Verified 06/23/24 10:07 hydrocodone AdvReac Mild N/V Verified 06/23/24 10:07 clindamycin AdvReac Unknown other Verified 06/23/24 10:07 hydromorphone (From Dilaudid) AdvReac Vomiting Verified 06/23/24 10:07 oxycodone AdvReac Nausea and Verified 06/23/24 10:07 Vomiting palm oil Allergy Intermediate Hives Uncoded 06/23/24 10:07 COCONUT Allergy Mild Hives / Uncoded 06/23/24 10:07 Red Face Delodium AdvReac Mild Vomiting Uncoded 06/23/24 10:07 Vital Signs Vital Signs - 24 hr 10/05/24 19:11 10/05/24 23:09 10/05/24 23:53 Temperature 98.2 F 97.9 F 97.9 F Pulse Rate 115 H 111 H 94 Respiratory Rate 16 20 16 Blood Pressure 145/94 H 122/77 141/66 H Pulse Oximetry 100 99 100 Oxygen Delivery 10/06/24 01:06 10/06/24 03:24 10/06/24 04:05 Temperature 98.1 F 98.1 F 97 F L Pulse Rate 104 H 95 89 Respiratory Rate 17 16 16 Blood Pressure 124/56 L 113/60 138/73 Pulse Oximetry 95 97 97 Oxygen Delivery 10/06/24 05:43 10/06/24 08:00 10/06/24 14:00 Temperature 98.1 F Pulse Rate 84 Respiratory Rate 16 Blood Pressure 125/75 Pulse Oximetry 99 Oxygen Delivery Room Air Room Air Exam Narrative: * GENERAL: Alert and oriented x 3 pleasant obese female. No acute distress. * EYES: PERRLA. * HEENT: Moist mucous membranes. * LUNGS: Clear to auscultation bilaterally. No accessory muscle use. * CARDIOVASCULAR: Regular rate and rhythm. S1-S2 * ABDOMEN: Soft, tenderness and non-distended. * EXTREMITIES: No edema. Non-tender * SKIN: No rashes or lesions. Skin warm, dry. * NEUROLOGIC: No focal neurological deficits. CN II-XII grossly intact * PSYCHIATRIC: Appropriate mood and affect. Good judgement and insight. H&P: Results Labs Labs: Short CBC 10/05/24 10/06/24 Range/Units 22:23 12:11 WBC 8.6 5.7 (4.5-10.0) K/mm3 Hgb 14.1 12.5 (12.0-15.0) g/dL Hct 42.6 38.6 (37.0-47.0) % Plt Count 410 H D 356 (150-375) k/mm3 BMP 10/05/24 10/06/24 22:23 12:11 Sodium 137 138 Potassium 2.9 L 4.1 Chloride 103 111 H Carbon Dioxide 29 26 BUN 8 7 Creatinine 0.80 0.70 Glucose 118 H 158 H Calcium 8.8 8.2 L Liver Function 10/05/24 Range/Units 22:23 Total Bilirubin 0.7 (0.2-1.3) mg/dL AST 47 H (14-36) U/L ALT 20 (6-35) U/L Alkaline Phosphatase 198 H (38-126) U/L Albumin 3.5 (3.5-5.1) g/dL Urine 10/05/24 Range/Units 22:11 Urine Color Yellow (Yellow) Urine Appearance Clear (Clear) Urine pH 6.5 (5.0-9.0) Ur Specific [place] 1.013 (1.001-1.035) Urine Protein Negative (Negative) mg/dL Urine Glucose (UA) Negative (Negative) mg/dL Imaging CT scan - abdomen: Radiologist's impression: CT abdomen pelvis w con Ordering provider: Cecilia Wang PA-C History: 64 years Female with . rt sided abdominal pain . Comparison: June 23, 2024 Technique: CT abdomen and pelvis with IV and without oral contrast. Automated exposure control and iterative reconstruction technique were employed. The dose- length product was 1041.41 mGy-cm. Findings: VISUALIZED LOWER CHEST: Normal. UPPER ABDOMINAL ORGANS: Liver: Fat infiltration. Hepatomegaly. Gallbladder: Distended gallbladder with no stones. Spleen: Normal. Benign calcifications. Stomach/duodenum: Thickened wall of the stomach which may indicate gastritis. Clinical correlation advised.. Pancreas: Normal. Slightly prominent pancreatic duct. Adrenals: Normal. Kidneys: Normal. PELVIC ORGANS: The bladder is underfilled. Uterus: Hypodensity seen in the left side of the uterus which may indicate fibroid. Ultrasound evaluation advised. BOWEL AND MESENTERY: Colon: No evidence of diverticulitis. Fat stranding seen posterior to the rectum suggestive of inflammatory changes. Fluid containing structure is seen in the right lower quadrant measuring 1.4 x 2.7 cm. No definite inflammatory changes seen around this area.. Postoperative changes are also seen at the same area. Soft tissue density is seen lateral to the anus on the left side. Clinical evaluation advised. Small Bowel: Minimal thickening is seen in the terminal ileum with no significant inflammatory changes. Follow-up advised. No obstruction. Peritoneum/mesentery: No free air or free fluid. No mesenteric lymphadenopathy. Small lymph nodes are seen in the area of the is[place] hepatis. RETROPERITONEUM: Mild atheromatous disease of the abdominal aorta. No retroperitoneal lymphadenopathy. MUSCULOSKELETAL: Superficial soft tissues: The superficial soft tissues are normal. Bones: Age appropriate degenerative changes of the spine. IMPRESSION: 1. Hepatomegaly with fat infiltration. 2. Inflammatory changes seen anterior to the sacrum and posterior to the rectum. Follow-up and further evaluation advised. Possible soft tissue density on the left side of the anus. 3. Soft tissue density in the area of the appendix to the cecum clinical correlation and follow-up advised. 4. Possible fibroid in the uterus. Ultrasound evaluation advised. 5. Minimal thickening in the terminal ileum area. Assessment and Plan Assessment and plan (1) Crohn's disease: Qualifiers: Digestive disease complication type: with abscess Gastrointestinal tract location: unspecified location Qualified Code(s): K50.914 - Crohn's disease, unspecified, with abscess Code(s): K50.90 - Crohn's disease, unspecified, without complications Status: Chronic Assessment and Plan: patient history of Crohn's disease to include bowel resection with hemicolectomy, patient reports she was taking Humira and is planning to transition to Skyrisi with her follow-up appointment on October [address] Turner. patient came to the emergency department for treatment due to uncontrolled nausea and vomiting and severe abdominal pain. * GI consulted for further recommendation * IV fluids * initially started on oral steroids but with nausea vomiting will transition to IV steroids until tolerating oral intake * will advance diet as tolerated currently on clear liquid * stool studies pending * continue with Cipro and Flagyl will likely need from 7-10 days * CRP was elevated 2.3 will recheck for downtrend * continue with follow-up outpatient with GI on * antiemetics * pain management (2) Obesity, morbid, BMI 40.0-49.9: Code(s): E66.01 - Morbid (severe) obesity due to excess calories Status: Acute Assessment and Plan: * encourage increased on physical activity and lifestyle modifications * BMI .39.5 * Diet exercise counseling done. (3) Elevated glucose: Code(s): R73.09 - Other abnormal glucose Status: Acute Assessment and Plan: patient with no history of diabetes * glucose 158 * A1c pending * last A1c 2022 was 5.2 Plan Code status: Full code per patient DVT prophylaxis: Lovenox Stress ulcer prophylaxis: NA PT/OT notes: Ambulatory Disposition: patient continues admission to the medical unit for treatment [employer] hn's flare up will continue with IV antibiotics, IV steroid, IV fluids, pain control and antiemetics until tolerating oral intake GI following for any further recommendations. Patient is ambulatory and plan will be to discharge to medically stable. Quality VTE Prophylaxis VTE prophylaxis: pharmacologic ordered -Patient's previous records reviewed on admission -ER notes reviewed in detail on admission -discussed all findings and current treatment plan with patient/Family/POA -Consultations reviewed for recommendations -Patient's disposition for safe discharge discussed with renal case manager Dictation performed by [email or web address] direct speech recognition software, therefore online marketing analyst variants and typographical errors may occur. Hospitalist [facility] Advance Care Plan I have confirmed that the patient's Advanced Care Plan is present, code status is documented, or surrogate decision maker is listed in patient medical record.: Yes Medication Reconciliation I have utilized all available resources to obtain, update and review the patients current medications (includes all prescriptions, OTC, herbals, cannabis, and nutritional supplements).: Yes The patient is not eligible for med reconciliation; the patient is in a emergent medical situation where delaying treatment would jeopardize the patients health.: No
[2024-10-06] MEDS: metroNIDAZOLE 500 MG/ISO 100ML 500 MG/100 ML BAG 100 MG IVPB ×2 (15:56→21:10)
[2024-10-06] MEDS: CIPROFLOXACIN 200 MG/D5W 100ML 100 ML 100 MG IVPB (17:36)
[2024-10-06] MEDS: methylPREDNISolone SOD SUCC 40 MG VIAL 30 MG IV PUSH (17:36)
[2024-10-06 21:04] VITALS: BP 139/73; PULSE 93; RESP 18; TEMP 36.1; O2SAT 97
[2024-10-07] MEDS: MORPHINE SULFATE (*CRX) 4 MG/ML INJ IV PUSH ×3 (03:23→21:06)
[2024-10-07 04:44] VITALS: BP 133/72; PULSE 96; RESP 18; TEMP 36.3; O2SAT 96
[2024-10-07] MEDS: metroNIDAZOLE 500 MG/ISO 100ML 500 MG/100 ML BAG 100 MG IVPB ×3 (04:47→21:04)
[2024-10-07] MEDS: CIPROFLOXACIN 200 MG/D5W 100ML 100 ML 100 MG IVPB ×2 (06:05→16:01)
[2024-10-07] MEDS: SODIUM CHLORIDE 0.9% IV 1,000 ML 125 ML IV CONT ×3 (06:06→21:04)
--- NOTE | 2024-10-07 06:21 | PC.NURSE ---
PATIENT HAS HAD NO EPISODES OF NAUSEA OR EMESIS THIS SHIFT. STATES THAT SHE FEELS IF SHE CAN TOLERATE A DIETARY CHANGE. AT PATIENT REQUEST, HER DIET WAS UPGRADED TO FULL LIQUID DIET THIS A.M.
[2024-10-07 06:46] LABS: Hemoglobin A1C 6.2 % (<5.7)
[2024-10-07] MEDS: ENOXAPARIN 40 MG/0.4 ML SYRINGE SUB-Q (08:38)
[2024-10-07] MEDS: methylPREDNISolone SOD SUCC 40 MG VIAL 30 MG IV PUSH ×2 (08:38→16:02)
[2024-10-07] MEDS: DULoxetine HCL 60 MG CAPSULE.DR PO ×2 (08:38→21:04)
[2024-10-07] MEDS: ONDANSETRON INJ 4 MG/2 ML VIAL IV PUSH (08:42)
--- NOTE | 2024-10-07 09:26 | P.PNIM_ITS ---
Progress Note: A&P Assessment and Plan (1) Crohn's disease: Qualifiers: Digestive disease complication type: with abscess Gastrointestinal tract location: unspecified location Qualified Code(s): K50.914 - Crohn's disease, unspecified, with abscess Code(s): K50.90 - Crohn's disease, unspecified, without complications Status: Chronic Assessment and Plan: patient history of Crohn's disease to include bowel resection with hemicolectomy, patient reports she was taking Humira and is planning to transition to [facility] with her follow-up appointment on October [address] Turner. patient came to the emergency department for treatment due to uncontrolled nausea and vomiting and severe abdominal pain. * GI consulted for further recommendation * IV fluids * initially started on oral steroids but with nausea vomiting will transition to IV steroids until tolerating oral intake * will advance diet as tolerated currently on clear liquid * stool studies pending * continue with Cipro and Flagyl will likely need from 7-10 days * CRP was elevated 2.3 will recheck for downtrend * continue with follow-up outpatient with GI on * antiemetics * pain management 10/07/2024 * No vomiting * continue with IV steroids transition if tolerating oral intake (2) Obesity, morbid, BMI 40.0-49.9: Code(s): E66.01 - Morbid (severe) obesity due to excess calories Status: Acute Assessment and Plan: * encourage increased on physical activity and lifestyle modifications * BMI .39.5 * Diet exercise counseling done. (3) Elevated glucose: Code(s): R73.09 - Other abnormal glucose Status: Acute Assessment and Plan: patient with no history of diabetes * glucose 158 * A1c pending * last A1c 2022 was 5.2 10/07/24: * A1c 6.2 will discuss with patient regarding initiating medication * diet modifications and lifestyle changes Plan Code status: Full code per patient DVT prophylaxis: Lovenox Stress ulcer prophylaxis: NA PT/OT notes: Ambulatory Disposition: patient continues admission to the medical unit for treatment Crohn's flare up will continue with IV antibiotics, IV steroid, IV fluids, pain control and antiemetics until tolerating oral intake GI following for any further recommendations. Patient is ambulatory and plan will be to discharge to medically stable. Time Spent With Patient Time with patient: 15 - 25 minutes Subjective Date/time seen: 10/07/24 09:26 Interval history: Patient is 64-year-old female was admitted for further evaluation and treatment Crohn's flare continued to nausea vomiting unable to tolerate oral in take. 10/07/24: Patient reported mild improvement to ABD pain and tolerating oral intake without vomiting, otherwise no other complaints responding to IV steroids hopefully can transition to oral tomorrow. Review of Systems Review of Systems: All systems reviewed & are unremarkable except as noted in HPI and below Exam Narrative: * GENERAL: Alert and oriented x 3 pleasant obese female. No acute distress. * EYES: PERRLA. * HEENT: Moist mucous membranes. * LUNGS: Clear to auscultation bilaterally. No accessory muscle use. * CARDIOVASCULAR: Regular rate and rhythm. S1-S2 * ABDOMEN: Soft, tenderness and non-distended. * EXTREMITIES: No edema. Non-tender * SKIN: No rashes or lesions. Skin warm, dry. * NEUROLOGIC: No focal neurological deficits. * PSYCHIATRIC: Appropriate mood and affect. Good judgement and insight. Objective Data Vital Signs Vital Signs: Vital Signs - 24 hr 10/06/24 14:00 10/06/24 20:00 10/06/24 21:04 Temperature 98.1 F 97 F L Pulse Rate 84 93 Respiratory Rate 16 18 Blood Pressure 125/75 139/73 Pulse Oximetry 99 97 Oxygen Delivery Room Air 10/07/24 04:44 10/07/24 08:00 Temperature 97.4 F L Pulse Rate 96 Respiratory Rate 18 Blood Pressure 133/72 Pulse Oximetry 96 Oxygen Delivery Room Air Intake/Output Intake/Output: Intake & Output 10/04/24 10/05/24 10/06/24 10/07/24 23:59 23:59 23:59 23:59 Intake Total 5540 1600 Output Total 400 450 Balance 5140 1150 Meds/Results Medications: Active Medications Generic Name Dose Route Start Last Admin Trade Name Freq PRN Reason Stop Dose Admin Albuterol 1 puff 10/06/24 11:32 Albuterol Sulfate (*Sp) Aerosol 1 Puff INHALATION Q4-6H PRN shortness of breath or wheezing Duloxetine HCl 60 mg 10/06/24 11:40 10/07/24 08:38 Duloxetine Hcl 60 Mg Capsule.Dr PO 60 mg Q12HR KARAN Administration Enoxaparin Sodium 40 mg 10/07/24 09:00 10/07/24 08:38 Enoxaparin 40 Mg/0.4 Ml Syringe SUB-Q 40 mg DAILY KARAN Administration Sodium Chloride 1,000 mls @ 125 mls/hr 10/06/24 02:25 10/07/24 06:06 Normal Saline Iv IV CONT 125 mls/hr .Q8H KARAN Administration Metronidazole 500 mg in 100 mls @ 100 mls/hr 10/06/24 14:00 10/07/24 05:47 Flagyl 500 Mg/Iso Soln 100 Ml IVPB Infused Q8HR KARAN Infusion Ciprofloxacin/Dextrose 100 mls @ 100 mls/hr 10/06/24 17:00 10/07/24 07:05 Cipro 200 Mg/D5w 100 Ml IVPB Infused Q12H KARAN Infusion Methylprednisolone Sodium Succinate 30 mg 10/06/24 17:00 10/07/24 08:38 Methylprednisolone Sod Succ 40 Mg Vial IV PUSH 30 mg BID KARAN Administration Morphine Sulfate 4 mg 10/06/24 22:58 10/07/24 03:23 Morphine Sulfate (*Crx) 4 Mg/Ml Inj IV PUSH 4 mg Q4H PRN Administration Pain Rated 7-10 Ondansetron HCl 4 mg 10/06/24 02:24 10/07/24 08:42 Ondansetron Inj 4 Mg/2 Ml Vial IV PUSH 4 mg Q4H PRN Administration Nausea Prednisone 40 mg 10/06/24 11:40 10/06/24 12:05 Prednisone 20 Mg Tablet PO 40 mg DAILY KARAN Administration Radiology Results: ITS Impressions Abdomen/Pelvis CT 10/05/24 23:48 IMPRESSION: 1. Hepatomegaly with fat infiltration. 2. Inflammatory changes seen anterior to the sacrum and posterior to the rectum. Follow-up and further evaluation advised. Possible soft tissue density on the left side of the anus. 3. Soft tissue density in the area of the appendix to the cecum clinical correlation and follow-up advised. 4. Possible fibroid in the uterus. Ultrasound evaluation advised. 5. Minimal thickening in the terminal ileum area. Labs Labs: Laboratory Results - last 24 hr 10/06/24 10/07/24 12:11 05:39 WBC 5.7 RBC 4.25 Hgb 12.5 Hct 38.6 MCV 90.8 MCH 29.4 MCHC 32.4 RDW 13.3 Plt Count 356 MPV 8.2 Sodium 138 Potassium 4.1 Chloride 111 H Carbon Dioxide 26 Anion Gap 1 L BUN 7 Creatinine 0.70 Estim Creat Clear Calc 77 Estimated GFR > 60 Glucose 158 H Hemoglobin A1c 6.2 H Calcium 8.2 L C-Reactive Protein 2.3 H Hepatitis A IgM Ab Negative Hep Bs Antigen Negative Hep B Core IgM Ab Negative Hepatitis C Ab Screen Negative Quality VTE Prophylaxis VTE prophylaxis: pharmacologic ordered -Patient's previous records reviewed on admission -ER notes reviewed in detail on admission -discussed all findings and current treatment plan with patient/Family/POA -Consultations reviewed for recommendations -Patient's disposition for safe discharge discussed with rehabilitation case coordinator Dictation performed by [employer] direct speech recognition software, therefore selling specialist variants and typographical errors may occur. Hospitalist MIPS Advance Care Plan I have confirmed that the patient's Advanced Care Plan is present, code status is documented, or surrogate decision maker is listed in patient medical record.: Yes Medication Reconciliation I have utilized all available resources to obtain, update and review the patients current medications (includes all prescriptions, OTC, herbals, cannabis, and nutritional supplements).: Yes The patient is not eligible for med reconciliation; the patient is in a emergent medical situation where delaying treatment would jeopardize the patients health.: No
[2024-10-07 13:27] LABS: Hematocrit 40.3 % (37.0-47.0); Hemoglobin 12.6 g/dL (12.0-15.0); Mean Corpuscular HGB Conc 31.3 g/dl (32-36); Mean Corpuscular Hemoglobin 29.9 pg (26-34); Mean Corpuscular Volume 95.5 fl (80-100); Mean Platelet Volume 8.8 fl (7.4-10.4); Platelet Count Result 336 k/mm3 (150-375); Red Blood Count 4.22 M/mm3 (4.2-5.4); Red Cell Distribution Width 13.4 % (11.5-14.5); White Blood Count 9.8 K/mm3 (4.5-10.0)
[2024-10-07 13:49] LABS: Alanine Aminotransferase 20 U/L (6-35); Albumin Level 3.1 g/dL (3.5-5.1); Alkaline Phosphatase 138 U/L (38-126); Anion Gap 2 mmol/L (4-12); Aspartate Amino Transferase 49 U/L (14-36); Bilirubin,Total 0.3 mg/dL (0.2-1.3); Blood Urea Nitrogen 5 mg/dL (7-17); CRP 1.3 mg/dL (<1.0); Calcium 8.6 mg/dL (8.4-10.2); Carbon Dioxide 26 mmol/L (22-30); Chloride 107 mmol/L (98-107); Estimated CRCL calculation 77 ml/min; Estimated Glomerular Filt Rate > 60; Glucose 178 mg/dL (65-110); Potassium 4.4 mmol/L (3.4-5.0); Sodium 135 mmol/L (137-145)
--- NOTE | 2024-10-07 14:50 | WPDGIPROGNO ---
Progress Note: A&P Assessment and Plan (1) Acute Crohn's disease: Qualifiers: Digestive disease complication type: unspecified complication Qualified Code(s): K50.919 - Crohn's disease, unspecified, with unspecified complications Code(s): K50.90 - Crohn's disease, unspecified, without complications Status: Acute (2) Obesity, morbid, BMI 40.0-49.9: Code(s): E66.01 - Morbid (severe) obesity due to excess calories Status: Acute (3) Abdominal pain: Code(s): R10.9 - Unspecified abdominal pain Status: Acute Plan Overall patient is clinically improving continue with the steroids as well as with antibiotics patient is already scheduled to start IV infusion for Crohn's Advanced diet as tolerated Mobilize the patient No diarrhea has been witnessed Tomorrow if the labs looks stable and patient is feeling better IV steroids can be changed to prednisone Regular GI team will resume patient care tomorrow Advised patient to keep the follow-up with the GI office as outpatient Subjective Date/time seen: 10/07/24 14:50 Interval history: Patient is being seen for Crohn's flare according to her she did not have any bowel movement does have some abdominal discomfort currently on steroids as well as antibiotics stool studies are pending Review of Systems Constitutional: Constitutional: Denies chills, Denies fatigue, Denies fever(s), Denies headache(s), Denies malaise, Denies weight gain and Denies weight loss Eyes: Eyes: Denies change in vision ENT: Denies dizziness, Denies headache(s) and Reports other (No change in hearing) Cardiovascular: Cardiovascular: Denies chest pain, Denies dyspnea and Reports other (denies palpitations, denies orthopnea) Respiratory: Respiratory: Denies cough, Denies dyspnea and Reports other (denies sputum production, denies hemoptysis) Gastrointestinal: Gastrointestinal: Reports as per HPI Genitourinary: Genitourinary: Denies hematuria, Denies dysuria and Denies urinary incontinence Musculoskeletal: Musculoskeletal: Reports other (denies extremity edema, denies myalgia) Integumentary/Breasts: Skin/Breast: Denies new lesions and Denies rash Neurologic: Denies dizziness, Denies headache(s) and Denies seizure-like activity Endocrine: Endocrine: Denies fatigue Hematologic/Lymphatic: Hematologic/Lymphatic: Denies easy bleeding and Denies easy bruising Exam Const: General: cooperative; No acute distress Orientation/consciousness: patient oriented x3 HENMT: Head: normal to inspection Neck: Neck: supple Resp: Auscultation: clear to auscultation bilaterally Cardio: Rate: regular rate Rhythm: regular rhythm GI: Inspection: non-distended GI Palp: Yes Soft to palpation, No Tenderness to palpation present (GI) and No Palpable mass present Auscultation: normal bowel sounds Rectal Exam: deferred Skin: General skin exam: no rashes or lesions noted Neuro: General: patient oriented x3 Extrem: General: no edema Objective Data Vital Signs Vital Signs: Vital Signs - 24 hr 10/06/24 20:00 10/06/24 21:04 10/07/24 04:44 Temperature 97 F L 97.4 F L Pulse Rate 93 96 Respiratory Rate 18 18 Blood Pressure 139/73 133/72 Pulse Oximetry 97 96 Oxygen Delivery Room Air 10/07/24 08:00 Temperature Pulse Rate Respiratory Rate Blood Pressure Pulse Oximetry Oxygen Delivery Room Air Intake/Output Intake/Output: Intake & Output 10/04/24 10/05/24 10/06/24 10/07/24 23:59 23:59 23:59 23:59 Intake Total 5540 1840 Output Total 400 450 Balance 5140 1390 Meds/Results Medications: Active Medications Generic Name Dose Route Start Last Admin Trade Name Freq PRN Reason Stop Dose Admin Albuterol 1 puff 10/06/24 11:32 Albuterol Sulfate (*Sp) Aerosol 1 Puff INHALATION Q4-6H PRN shortness of breath or wheezing Duloxetine HCl 60 mg 10/06/24 11:40 10/07/24 08:38 Duloxetine Hcl 60 Mg Capsule. PO 60 mg Q12HR KARAN Administration Enoxaparin Sodium 40 mg 10/07/24 09:00 10/07/24 08:38 Enoxaparin 40 Mg/0.4 Ml Syringe SUB-Q 40 mg DAILY KARAN Administration Sodium Chloride 1,000 mls @ 125 mls/hr 10/06/24 02:25 10/07/24 13:03 Normal Saline Iv IV CONT Not Given .Q8H KARAN Metronidazole 500 mg in 100 mls @ 100 mls/hr 10/06/24 14:00 10/07/24 13:26 Flagyl 500 Mg/Iso Soln 100 Ml IVPB 100 mls/hr Q8HR KARAN Administration Ciprofloxacin/Dextrose 100 mls @ 100 mls/hr 10/06/24 17:00 10/07/24 07:05 Cipro 200 Mg/D5w 100 Ml IVPB Infused Q12H KARAN Infusion Methylprednisolone Sodium Succinate 30 mg 10/06/24 17:00 10/07/24 08:38 Methylprednisolone Sod Succ 40 Mg Vial IV PUSH 30 mg BID KARAN Administration Morphine Sulfate 4 mg 10/06/24 22:58 10/07/24 13:28 Morphine Sulfate (*Crx) 4 Mg/Ml Inj IV PUSH 4 mg Q4H PRN Administration Pain Rated 7-10 Ondansetron HCl 4 mg 10/06/24 02:24 10/07/24 08:42 Ondansetron Inj 4 Mg/2 Ml Vial IV PUSH 4 mg Q4H PRN Administration Nausea Prednisone 40 mg 10/06/24 11:40 10/06/24 12:05 Prednisone 20 Mg Tablet PO 40 mg DAILY KARAN Administration Radiology Results: ITS Impressions Abdomen/Pelvis CT 10/05/24 23:48 IMPRESSION: 1. Hepatomegaly with fat infiltration. 2. Inflammatory changes seen anterior to the sacrum and posterior to the rectum. Follow-up and further evaluation advised. Possible soft tissue density on the left side of the anus. 3. Soft tissue density in the area of the appendix to the cecum clinical correlation and follow-up advised. 4. Possible fibroid in the uterus. Ultrasound evaluation advised. 5. Minimal thickening in the terminal ileum area. Labs Labs: Laboratory Results - last 24 hr 10/07/24 10/07/24 05:39 13:06 WBC 9.8 RBC 4.22 Hgb 12.6 Hct 40.3 MCV 95.5 D MCH 29.9 MCHC 31.3 L RDW 13.4 Plt Count 336 MPV 8.8 Sodium 135 L Potassium 4.4 Chloride 107 Carbon Dioxide 26 Anion Gap 2 L BUN 5 L Creatinine 0.70 Estim Creat Clear Calc 77 Estimated GFR > 60 Glucose 178 H Hemoglobin A1c 6.2 H Calcium 8.6 Total Bilirubin 0.3 AST 49 H ALT 20 Alkaline Phosphatase 138 H C-Reactive Protein 1.3 H Total Protein 7.0 Albumin 3.1 L
[2024-10-07 15:50] VITALS: BP 117/61; PULSE 95; RESP 18; TEMP 36.3; O2SAT 96
[2024-10-07 19:52] LABS: Toxigenic C. Diff NEGATIVE (NEGATIVE)
[2024-10-07 22:00] VITALS: BP 135/73; PULSE 77; RESP 18; TEMP 36.2; O2SAT 97
[2024-10-08] MEDS: metroNIDAZOLE 500 MG/ISO 100ML 500 MG/100 ML BAG 100 MG IVPB ×3 (05:22→20:01)
[2024-10-08 06:00] VITALS: BP 136/56; PULSE 86; RESP 18; TEMP 36.4; O2SAT 98
[2024-10-08] MEDS: CIPROFLOXACIN 200 MG/D5W 100ML 100 ML 100 MG IVPB ×2 (06:43→17:17)
--- NOTE | 2024-10-08 08:57 | P.PNIM_ITS ---
Progress Note: A&P Assessment and Plan (1) Crohn's disease: Qualifiers: Digestive disease complication type: with abscess Gastrointestinal tract location: unspecified location Qualified Code(s): K50.914 - Crohn's disease, unspecified, with abscess Code(s): K50.90 - Crohn's disease, unspecified, without complications Status: Chronic Assessment and Plan: patient history of Crohn's disease to include bowel resection with hemicolectomy, patient reports she was taking Humira and is planning [facility] with her follow-up appointment on October [address] Turner. patient came to the emergency department for treatment due to uncontrolled nausea and vomiting and severe abdominal pain. * GI consulted for further recommendation * IV fluids * initially started on oral steroids but with nausea vomiting will transition to IV steroids until tolerating oral intake * will advance diet as tolerated currently on clear liquid * stool studies pending * continue with Cipro and Flagyl will likely need from 7-10 days * CRP was elevated 2.3 will recheck for downtrend * continue with follow-up outpatient with GI on * antiemetics * pain management 10/07/2024 * No vomiting * continue with IV steroids transition if tolerating oral intake 10/08/2024 * advance diabetic diet * CRP trending down (2) Obesity, morbid, BMI 40.0-49.9: Code(s): E66.01 - Morbid (severe) obesity due to excess calories Status: Acute Assessment and Plan: * encourage increased on physical activity and lifestyle modifications * BMI .39.5 * Diet exercise counseling done. (3) Elevated glucose: Code(s): R73.09 - Other abnormal glucose Status: Acute Assessment and Plan: patient with no history of diabetes * glucose 158 * A1c pending * last A1c 2022 was 5.2 10/07/24: * A1c 6.2 will discuss with patient regarding initiating medication * diet modifications and lifestyle changes Plan Code status: Full code per patient DVT prophylaxis: Lovenox Stress ulcer prophylaxis: NA PT/OT notes: Ambulatory Disposition: patient continues admission to the medical unit for treatment Crohn's flare up will continue with IV antibiotics, IV steroid, IV fluids, pain control and antiemetics until tolerating oral intake GI following for any further recommendations. Patient is ambulatory and plan will be to discharge to medically stable. Time Spent With Patient Time with patient: 15 - 25 minutes Subjective Date/time seen: 10/08/24 08:57 Interval history: Patient is 64-year-old female was admitted for further evaluation and treatment Crohn's flare continued to nausea vomiting unable to tolerate oral intake. 10/08/24: Patient feeling better today ABD pain has improved and she is requesting regular diet. Denied any further N/V and CRP trending down. Review of Systems Review of Systems: All systems reviewed & are unremarkable except as noted in HPI and below Exam Narrative: * GENERAL: Alert and oriented x 3 pleasant obese female. No acute distress. * EYES: PERRLA. * HEENT: Moist mucous membranes. * LUNGS: Clear to auscultation bilaterally. No accessory muscle use. * CARDIOVASCULAR: Regular rate and rhythm. S1-S2 * ABDOMEN: Soft, tenderness and non-distended. * EXTREMITIES: No edema. Non-tender * SKIN: No rashes or lesions. Skin warm, dry. * NEUROLOGIC: No focal neurological deficits. * PSYCHIATRIC: Appropriate mood and affect. Good judgement and insight. Objective Data Vital Signs Vital Signs: Vital Signs - 24 hr 10/07/24 15:50 10/07/24 20:00 10/07/24 22:00 Temperature 97.3 F L 97.1 F L Pulse Rate 95 77 Respiratory Rate 18 18 Blood Pressure 117/61 135/73 Pulse Oximetry 96 97 Oxygen Delivery Room Air 10/08/24 06:00 Temperature 97.6 F Pulse Rate 86 Respiratory Rate 18 Blood Pressure 136/56 L Pulse Oximetry 98 Oxygen Delivery Intake/Output Intake/Output: Intake & Output 10/05/24 10/06/24 10/07/24 10/08/24 23:59 23:59 23:59 23:59 Intake Total 5540 4849.2 Output Total 400 850 Balance 5140 3999.2 Meds/Results Medications: Active Medications Generic Name Dose Route Start Last Admin Trade Name Freq PRN Reason Stop Dose Admin Albuterol 1 puff 10/06/24 11:32 Albuterol Sulfate (*Sp) Aerosol 1 Puff INHALATION Q4-6H PRN shortness of breath or wheezing Duloxetine HCl 60 mg 10/06/24 11:40 10/07/24 21:04 Duloxetine Hcl 60 Mg Capsule.Dr PO 60 mg Q12HR KARAN Administration Enoxaparin Sodium 40 mg 10/07/24 09:00 10/07/24 08:38 Enoxaparin 40 Mg/0.4 Ml Syringe SUB-Q 40 mg DAILY KARAN Administration Sodium Chloride 1,000 mls @ 125 mls/hr 10/06/24 02:25 10/07/24 21:04 Normal Saline Iv IV CONT 125 mls/hr .Q8H KARAN Administration Metronidazole 500 mg in 100 mls @ 100 mls/hr 10/06/24 14:00 10/08/24 05:22 Flagyl 500 Mg/Iso Soln 100 Ml IVPB 100 mls/hr Q8HR KARAN Administration Ciprofloxacin/Dextrose 100 mls @ 100 mls/hr 10/06/24 17:00 10/08/24 06:43 Cipro 200 Mg/D5w 100 Ml IVPB 100 mls/hr Q12H KARAN Administration Methylprednisolone Sodium Succinate 30 mg 10/06/24 17:00 10/07/24 16:02 Methylprednisolone Sod Succ 40 Mg Vial IV PUSH 30 mg BID KARAN Administration Morphine Sulfate 4 mg 10/06/24 22:58 10/07/24 21:06 Morphine Sulfate (*Crx) 4 Mg/Ml Inj IV PUSH 4 mg Q4H PRN Administration Pain Rated 7-10 Ondansetron HCl 4 mg 10/06/24 02:24 10/07/24 08:42 Ondansetron Inj 4 Mg/2 Ml Vial IV PUSH 4 mg Q4H PRN Administration Nausea Prednisone 40 mg 10/06/24 11:40 10/06/24 12:05 Prednisone 20 Mg Tablet PO 40 mg DAILY KARAN Administration Radiology Results: ITS Impressions Abdomen/Pelvis CT 10/05/24 23:48 IMPRESSION: 1. Hepatomegaly with fat infiltration. 2. Inflammatory changes seen anterior to the sacrum and posterior to the rectum. Follow-up and further evaluation advised. Possible soft tissue density on the left side of the anus. 3. Soft tissue density in the area of the appendix to the cecum clinical correlation and follow-up advised. 4. Possible fibroid in the uterus. Ultrasound evaluation advised. 5. Minimal thickening in the terminal ileum area. Labs Labs: Laboratory Results - last 24 hr 10/07/24 10/07/24 13:06 18:04 WBC 9.8 RBC 4.22 Hgb 12.6 Hct 40.3 MCV 95.5 D MCH 29.9 MCHC 31.3 L RDW 13.4 Plt Count 336 MPV 8.8 Sodium 135 L Potassium 4.4 Chloride 107 Carbon Dioxide 26 Anion Gap 2 L BUN 5 L Creatinine 0.70 Estim Creat Clear Calc 77 Estimated GFR > 60 Glucose 178 H Calcium 8.6 Total Bilirubin 0.3 AST 49 H ALT 20 Alkaline Phosphatase 138 H C-Reactive Protein 1.3 H Total Protein 7.0 Albumin 3.1 L C. difficile (PCR) Negative Quality VTE Prophylaxis VTE prophylaxis: pharmacologic ordered -Patient's previous records reviewed on admission -ER notes reviewed in detail on admission -discussed all findings and current treatment plan with patient/Family/POA -Consultations reviewed for recommendations -Patient's disposition for safe discharge discussed with mental health case manager Dictation performed by [employer] direct speech recognition software, therefore infrastructure design engineer variants and typographical errors may occur. Hospitalist MIPS Advance Care Plan I have confirmed that the patient's Advanced Care Plan is present, code status is documented, or surrogate decision maker is listed in patient medical record.: Yes Medication Reconciliation I have utilized all available resources to obtain, update and review the patient s current medications (includes all prescriptions, OTC, herbals, cannabis, and nutritional supplements).: Yes The patient is not eligible for med reconciliation; the patient is in a emergent medical situation where delaying treatment would jeopardize the patients health.: No
[2024-10-08] MEDS: DULoxetine HCL 60 MG CAPSULE.DR PO ×2 (09:53→20:01)
[2024-10-08] MEDS: ENOXAPARIN 40 MG/0.4 ML SYRINGE SUB-Q (09:53)
[2024-10-08] MEDS: methylPREDNISolone SOD SUCC 40 MG VIAL 30 MG IV PUSH ×2 (09:53→17:18)
[2024-10-08 14:00] VITALS: BP 128/70; PULSE 102; RESP 18; TEMP 36.8; O2SAT 96
[2024-10-08] MEDS: SODIUM CHLORIDE 0.9% IV 1,000 ML 125 ML IV CONT ×3 (14:00→20:07)
[2024-10-08] MEDS: ONDANSETRON INJ 4 MG/2 ML VIAL IV PUSH ×2 (14:06→18:16)
[2024-10-08] MEDS: MORPHINE SULFATE (*CRX) 4 MG/ML INJ IV PUSH ×2 (14:06→18:16)
[2024-10-08 20:11] VITALS: BP 161/97; PULSE 83; RESP 14; TEMP 36.6; O2SAT 95
[2024-10-09] MEDS: metroNIDAZOLE 500 MG/ISO 100ML 500 MG/100 ML BAG 100 MG IVPB ×3 (05:16→20:29)
[2024-10-09] MEDS: SODIUM CHLORIDE 0.9% IV 1,000 ML 125 ML IV CONT ×2 (05:16→16:44)
[2024-10-09] MEDS: CIPROFLOXACIN 200 MG/D5W 100ML 100 ML 100 MG IVPB ×2 (05:17→16:44)
[2024-10-09 05:26] VITALS: BP 148/84; PULSE 75; RESP 16; TEMP 36.6; O2SAT 98
[2024-10-09] MEDS: DULoxetine HCL 60 MG CAPSULE.DR PO ×2 (08:57→20:30)
[2024-10-09] MEDS: methylPREDNISolone SOD SUCC 40 MG VIAL 30 MG IV PUSH ×2 (08:57→16:43)
[2024-10-09] MEDS: ENOXAPARIN 40 MG/0.4 ML SYRINGE SUB-Q (08:58)
--- NOTE | 2024-10-09 09:12 | P.DS_ITS ---
DS: Admitting Diagnosis Discharge Date 10/09/2024 Admitting Diagnosis exacerbate of Crohn's disease DS: Discharge Diagnosis Discharge Diagnosis (1) Crohn's disease: Qualifiers: Digestive disease complication type: with abscess Gastrointestinal tract location: unspecified location Qualified Code(s): K50.914 - Crohn's disease, unspecified, with abscess Code(s): K50.90 - Crohn's disease, unspecified, without complications Status: Chronic Assessment and Plan: patient history of Crohn's disease to include bowel resection with hemicolectomy, patient reports she was taking Humira and is planning to transition to Skyris[facility] with her follow-up appointment on October [address] Turner. patient came to the emergency department for treatment due to uncontrolled nausea and vomiting and severe abdominal pain. * Transitioned from IV steroids to Oral * Low fiber diet * follow-up with GI as scheduled (2) Obesity, morbid, BMI 40.0-49.9: Code(s): E66.01 - Morbid (severe) obesity due to excess calories Status: Acute Assessment and Plan: * encourage increased on physical activity and lifestyle modifications * BMI .39.5 * Diet exercise counseling done. (3) Elevated glucose: Code(s): R73.09 - Other abnormal glucose Status: Acute Assessment and Plan: * A1c 6.2 will discuss with patient regarding initiating medication * diet modifications and lifestyle changes Plan Disposition: Discharged to home DS: Summary Hospital Course Reason for hospitalization: exacerbation of Crohn's disease Status at Discharge Functional status at discharge: independent ambulation Overall status at discharge: patient is back to baseline Time Spent with Patient Time attestation: Total time spent providing and/or coordinating discharge services: Time spent: Greater than 30 minutes Exam Narrative: * GENERAL: Alert and oriented x 3 pleasant obese female. No acute distress. * EYES: PERRLA. * HEENT: Moist mucous membranes. * LUNGS: Clear to auscultation bilaterally. No accessory muscle use. * CARDIOVASCULAR: Regular rate and rhythm. S1-S2 * ABDOMEN: Soft, tenderness and non-distended. * EXTREMITIES: No edema. Non-tender * SKIN: No rashes or lesions. Skin warm, dry. * NEUROLOGIC: No focal neurological deficits. * PSYCHIATRIC: Appropriate mood and affect. Good judgement and insight. DS: Data Imaging Radiologist's impression: Radiology Results: ITS Impressions Abdomen/Pelvis CT 10/05/24 23:48 IMPRESSION: 1. Hepatomegaly with fat infiltration. 2. Inflammatory changes seen anterior to the sacrum and posterior to the rectum. Follow-up and further evaluation advised. Possible soft tissue density on the left side of the anus. 3. Soft tissue density in the area of the appendix to the cecum clinical correlation and follow-up advised. 4. Possible fibroid in the uterus. Ultrasound evaluation advised. 5. Minimal thickening in the terminal ileum area. Discharge Plan Discharge Attending physician on discharge: Wilfredo Rico Consulting providers: Napoleon Muniz Discharging Clinician: Joy Harden Anticipated Discharge Date/Time: 10/09/24 09:07 Patient Disposition: Home, Self-Care Activity: unlimited and as tolerated Diet: low fiber Discharge Instructions: You are being discharged to home after treatment for Crohn's disease * Please take prednisone as prescribed * recommend low fiber diet advance as tolerated * keep follow-up with GI doctor as scheduled How can you care for yourself at home? ? Keep track of any new symptoms or changes in your symptoms. ? Rest until you feel better. ? Be safe with medicines. Take your medicines exactly as prescribed. Call your doctor if you think you are having a problem with your medicine. ? Do not drive after taking a prescription pain medicine. ? Ensure to follow-up with primary care physician as indicated and provide updated medication list provided to you at discharge. When should you call for help? Call 911 anytime you think you may need emergency care. For example, call if: ? You passed out (lost consciousness). Call your doctor now or seek immediate medical care if: ? You have new symptoms like fever, difficulty breathing, Chest pain, vomiting, or rash. ? You have new or different pain. ? You are confused and are having trouble thinking clearly. ? Your symptoms are getting worse. Watch closely for changes in your health, and be sure to contact your doctor if: ? You do not get better as expected. Patient Instructions: Antibiotic Form, Crohn Disease (DC), Low Fiber Diet (DC) Patient Language: Kenyan Stand Alone Forms: General Discharge Information Follow-up/Referrals: Brooklynn Pennington NP [Primary Care Provider] - 4 Weeks Norberto Gudino MD [Physician] - Keep Reg. Scheduled Appt. Discharge Medications: Continued albuterol sulfate 90 mcg/actuation HFA aerosol inhaler 1 inh inhalation Q4-6H PRN (Reason: shortness of breath or wheezing) Qty: 8.5 1RF duloxetine 60 mg capsule,delayed release(DR/EC) 60 mg PO BID Qty: 60 11RF tizanidine 4 mg tablet 2 - 4 mg PO TID PRN (Reason: muscle spasticity) Qty: 90 3RF simethicone 80 mg tablet,chewable 80 mg PO QID PRN (Reason: Gastric Reflux) lidocaine HCl [Aspercreme (lidocaine HCl)] 4 % Liquid Roll-On 1 ea TOPICAL PRN PRN (Reason: Pain) prochlorperazine maleate [Compazine] 10 mg tablet 10 mg PO Q8H PRN (Reason: Nausea And Vomiting) Qty: 30 0RF No Action prednisone 20 mg tablet 20 mg PO DAILY Qty: 30 4RF Date of admission: 10/07/24 14:30 Primary Care Provider: Brooklynn Pennington Admitting Provider: Delfina Zuñiga Attending physician on admission: Joy Harden Condition: Improved Quality VTE Prophylaxis VTE prophylaxis: pharmacologic ordered -Patient's previous records reviewed on admission -ER notes reviewed in detail on admission -discussed all findings and current treatment plan with patient/Family/POA -Consultations reviewed for recommendations -Patient's disposition for safe discharge discussed with casey saw operator Dictation performed by [employer] direct speech recognition software, therefore senior restaurant manager variants and typographical errors may occur. Hospitalist MIPS Heart Failure (Exclusion) Patient has history of Heart Transplant or Left Ventricular Assistive Device?: No IF YES, STOP HERE Heart Failure (Qualifier) Patient has current or prior documentation of LVEF less than or equal to 40%, or mod/servere depressed LVSF?: No IF NO, STOP HERE
[2024-10-09] MEDS: ONDANSETRON INJ 4 MG/2 ML VIAL IV PUSH ×2 (11:16→20:31)
[2024-10-09] MEDS: MORPHINE SULFATE (*CRX) 4 MG/ML INJ IV PUSH (11:16)
[2024-10-09 14:00] VITALS: BP 155/75; PULSE 74; RESP 18; TEMP 35.9; O2SAT 96
--- NOTE | 2024-10-09 14:22 | P.PNIM_ITS ---
Progress Note: A&P Assessment and Plan (1) Crohn's disease: Qualifiers: Digestive disease complication type: with abscess Gastrointestinal tract location: unspecified location Qualified Code(s): K50.914 - Crohn's disease, unspecified, with abscess Code(s): K50.90 - Crohn's disease, unspecified, without complications Status: Chronic Assessment and Plan: patient history of Crohn's disease to include bowel resection with hemicolectomy, patient reports she was taking Humira and is planning to transition to [place]risi with her follow-up appointment on October [address] Turner. patient came to the emergency department for treatment due to uncontrolled nausea and vomiting and severe abdominal pain. * GI consulted for further recommendation * IV fluids * initially started on oral steroids but with nausea vomiting will transition to IV steroids until tolerating oral intake * will advance diet as tolerated currently on clear liquid * stool studies pending * continue with Cipro and Flagyl will likely need from 7-10 days * CRP was elevated 2.3 will recheck for downtrend * continue with follow-up outpatient with GI on * antiemetics * pain management10/07/2024 * No vomiting * continue with IV steroids transition if tolerating oral intake 10/08/2024 * advance diabetic diet * CRP trending down 10/09/2024: * worsening abdominal pain * NPO status * follow-up CT abdomen ordered by GI to check for perianal Crohn's (2) Obesity, morbid, BMI 40.0-49.9: Code(s): E66.01 - Morbid (severe) obesity due to excess calories Status: Acute Assessment and Plan: * encourage increased on physical activity and lifestyle modifications * BMI .39.5 * Diet exercise counseling done. (3) Elevated glucose: Code(s): R73.09 - Other abnormal glucose Status: Acute Assessment and Plan: * patient with no history of diabetes * glucose 158 * A1c pending * last A1c 2022 was 5.2 10/07/24: * A1c 6.2 will discuss with patient regarding initiating medication * diet modifications and lifestyle changes Plan Code status: Full code per patient DVT prophylaxis: SCD Stress ulcer prophylaxis: NA PT/OT notes: Ambulatory Disposition: patient continues admission to the medical unit for treatment Crohn's flare up will continue with IV antibiotics, IV steroid, IV fluids, pain control and antiemetics until tolerating oral intake GI following for any further recommendations. follow-up CT scan scheduled for today patient currently NPO due to worsening abdominal pain nausea Patient is ambulatory and plan will be to discharge to medically stable. Time Spent With Patient Time with patient: 15 - 25 minutes Subjective Date/time seen: 10/09/24 14:22 Interval history: Patient is 64-year-old female was admitted for further evaluation and treatment Crohn's flare continued to nausea vomiting unable to tolerate oral intake. 10/09/24: Patient's diet had been advanced however patient says worsening abdominal pain following advancement of diet will make patient NPO and wait for GI recommendation likely need follow-up CT scan for evaluation. patient denies any fever, chills denied vomiting but did have nausea, normal WBC. Review of Systems Review of Systems: All systems reviewed & are unremarkable except as noted in HPI and below Exam Narrative: * GENERAL: Alert and oriented x 3 pleasant obese female. No acute distress. * EYES: PERRLA. * HEENT: Moist mucous membranes. * LUNGS: Clear to auscultation bilaterally. No accessory muscle use. * CARDIOVASCULAR: Regular rate and rhythm. S1-S2 * ABDOMEN: Soft, tenderness and non-distended. * EXTREMITIES: No edema. Non-tender * SKIN: No rashes or lesions. Skin warm, dry. * NEUROLOGIC: No focal neurological deficits. * PSYCHIATRIC: Appropriate mood and affect. Good judgement and insight. Objective Data Vital Signs Vital Signs: Vital Signs - 24 hr 10/08/24 20:00 10/08/24 20:11 10/09/24 05:26 Temperature 97.9 F 97.9 F Pulse Rate 83 75 Respiratory Rate 14 16 Blood Pressure 161/97 H 148/84 H Pulse Oximetry 95 98 Oxygen Delivery Room Air 10/09/24 08:00 Temperature Pulse Rate Respiratory Rate Blood Pressure Pulse Oximetry Oxygen Delivery Room Air Intake/Output Intake/Output: Intake & Output 10/06/24 10/07/24 10/08/24 10/09/24 23:59 23:59 23:59 23:59 Intake Total 5540 4849.2 2744.6 1340 Output Total 400 071 103 6619 Balance 5140 3999.2 2144.6 240 Meds/Results Medications: Active Medications Generic Name Dose Route Start Last Admin Trade Name Freq PRN Reason Stop Dose Admin Albuterol 1 puff 10/06/24 11:32 Albuterol Sulfate (*Sp) Aerosol 1 Puff INHALATION Q4-6H PRN shortness of breath or wheezing Calcium Carbonate 200 mg 10/08/24 11:12 Calcium Carbonate (Tums) 500 Mg (200 Mg Elemental) PO Q6H PRN Indigestion Duloxetine HCl 60 mg 10/06/24 11:40 10/09/24 08:57 Duloxetine Hcl 60 Mg Capsule.Dr PO 60 mg Q12HR KARAN Administration Enoxaparin Sodium 40 mg 10/07/24 09:00 10/09/24 08:58 Enoxaparin 40 Mg/0.4 Ml Syringe SUB-Q 40 mg DAILY KARAN Administration Sodium Chloride 1,000 mls @ 125 mls/hr 10/06/24 02:25 10/09/24 05:16 Normal Saline Iv IV CONT 125 mls/hr .Q8H KARAN Administration Metronidazole 500 mg in 100 mls @ 100 mls/hr 10/06/24 14:00 10/09/24 13:02 Flagyl 500 Mg/Iso Soln 100 Ml IVPB 100 mls/hr Q8HR KARAN Administration Ciprofloxacin/Dextrose 100 mls @ 100 mls/hr 10/06/24 17:00 10/09/24 05:17 Cipro 200 Mg/D5w 100 Ml IVPB 100 mls/hr Q12H KARAN Administration Methylprednisolone Sodium Succinate 30 mg 10/06/24 17:00 10/09/24 08:57 Methylprednisolone Sod Succ 40 Mg Vial IV PUSH 30 mg BID KARAN Administration Morphine Sulfate 4 mg 10/06/24 22:58 10/09/24 11:16 Morphine Sulfate (*Crx) 4 Mg/Ml Inj IV PUSH 4 mg Q4H PRN Administration Pain Rated 7-10 Ondansetron HCl 4 mg 10/06/24 02:24 10/09/24 11:16 Ondansetron Inj 4 Mg/2 Ml Vial IV PUSH 4 mg Q4H PRN Administration Nausea Polyethylene Glycol 119 gm 10/10/24 00:05 Polyethylene Glycol 3350 238 Gm Bottle PO 10/10/24 00:06 ONCE ONE Polyethylene Glycol 119 gm 10/10/24 05:00 Polyethylene Glycol 3350 238 Gm Bottle PO 10/10/24 05:01 ONCE ONE Prednisone 40 mg 10/06/24 11:40 10/06/24 12:05 Prednisone 20 Mg Tablet PO 40 mg DAILY KARAN Administration Radiology Results: ITS Impressions Abdomen/Pelvis CT 10/05/24 23:48 IMPRESSION: 1. Hepatomegaly with fat infiltration. 2. Inflammatory changes seen anterior to the sacrum and posterior to the rectum. Follow-up and further evaluation advised. Possible soft tissue density on the left side of the anus. 3. Soft tissue density in the area of the appendix to the cecum clinical correlation and follow-up advised. 4. Possible fibroid in the uterus. Ultrasound evaluation advised. 5. Minimal thickening in the terminal ileum area. Quality VTE Prophylaxis VTE prophylaxis: pharmacologic ordered -Patient's previous records reviewed on admission -ER notes reviewed in detail on admission -discussed all findings and current treatment plan with patient/Family/POA -Consultations reviewed for recommendations -Patient's disposition for safe discharge discussed with immigration case worker Dictation performed by [employer] direct speech recognition software, therefore precision dyer variants and typographical errors may occur. Hospitalist MIPS Advance Care Plan I have confirmed that the patient's Advanced Care Plan is present, code status is documented, or surrogate decision maker is listed in patient medical record.: Yes Medication Reconciliation I have utilized all available resources to obtain, update and review the patients current medications (includes all prescriptions, OTC, herbals, cannabis, and nutritional supplements).: Yes The patient is not eligible for med reconciliation; the patient is in a emergent medical situation where delaying treatment would jeopardize the patients health.: No
--- NOTE | 2024-10-09 14:27 | P.PNGI_ITS ---
Progress Note: A&P Assessment and Plan (1) Crohn's ileitis: Code(s): K50.00 - Crohn's disease of small intestine without complications Status: Acute (2) Exacerbation of Crohn's disease: Code(s): K50.90 - Crohn's disease, unspecified, without complications Status: Acute Assessment and Plan: The patient has a long-standing history of Crohn's disease and has undergone a right hemicolectomy with ileocolonic anastomosis. Her last colonoscopy, performed over a year ago, revealed an ulcer at the anastomotic site. Current cr oss-sectional imaging demonstrates ileitis. The patient's current presentation, including diarrhea, abdominal pain, and vomiting, could be attributed to suboptimally treated Crohn's disease. She is cu rrently not on any medications, as she reports that Humira was not effective and was denied coverage by her previous insurance. She has recently obtained new insurance coverage for Skyrizi. While she is currently receiving antibiotics and intravenous Solu-Medrol with some improvement, this symptom complex could also be secondary to a stenosis in the anastomotic or distal ileal region. Her altered anatomy, lacking the ileocecal valve, may also contribute to diarrhea, potentially due to small bowel bacterial overgrowth. Therefore, I will perform a colonoscopy tomorrow to evaluate the anastomotic site. Given that her CT scan revealed presacral/posterior rectal wall inflammation, I will also obtain a pelvic MRI with contrast to better assess for potential fistulas or abscesses, which may be better visualized with this imaging modality. (3) Diarrhea: Code(s): R19.7 - Diarrhea, unspecified Status: Acute (4) Nausea and vomiting: Code(s): R11.2 - Nausea with vomiting, unspecified Status: Acute Time Spent With Patient Time with patient: 15 - 25 minutes Subjective Date/time seen: 10/09/24 14:27 Interval history: the patient continues to have constant diarrhea, that could go up to 20 episodes a day, however since she has been hospitalized, due to less oral intake, diarrhea frequency has decreased to an average of 6 per day. She gets postprandial moderate to severe abdominal pain episodes, crampy type, periumbilical sometimes radiating to the posterior aspect of the right flank. In addition, she was complaining of oral intolerance with severe nausea and vomiting. Review of Systems Review of Systems: All systems reviewed & are unremarkable except as noted in HPI and below Exam Narrative: Diffuse tenderness to deep palpation in both flanks, no definite rebound, no hepatomegaly. Difficult to assess due to obesity. Objective Data Vital Signs Vital Signs: Vital Signs - 24 hr 10/08/24 20:00 10/08/24 20:11 10/09/24 05:26 Temperature 97.9 F 97.9 F Pulse Rate 83 75 Respiratory Rate 14 16 Blood Pressure 161/97 H 148/84 H Pulse Oximetry 95 98 Oxygen Delivery Room Air 10/09/24 08:00 Temperature Pulse Rate Respiratory Rate Blood Pressure Pulse Oximetry Oxygen Delivery Room Air Intake/Output Intake/Output: Intake & Output 10/06/24 10/07/24 10/08/24 10/09/24 23:59 23:59 23:59 23:59 Intake Total 5540 4849.2 2744.6 1340 Output Total 400 866 923 3178 Balance 5140 3999.2 2144.6 240 Meds/Results Medications: Active Medications Generic Name Dose Route Start Last Admin Trade Name Freq PRN Reason Stop Dose Admin Albuterol 1 puff 10/06/24 11:32 Albuterol Sulfate (*Sp) Aerosol 1 Puff INHALATION Q4-6H PRN shortness of breath or wheezing Calcium Carbonate 200 mg 10/08/24 11:12 Calcium Carbonate (Tums) 500 Mg (200 Mg Elemental) PO Q6H PRN Indigestion Duloxetine HCl 60 mg 10/06/24 11:40 10/09/24 08:57 Duloxetine Hcl 60 Mg Capsule.Dr PO 60 mg Q12HR KAARN Administration Enoxaparin Sodium 40 mg 10/07/24 09:00 10/09/24 08:58 Enoxaparin 40 Mg/0.4 Ml Syringe SUB-Q 40 mg DAILY KARAN Administration Sodium Chloride 1,000 mls @ 125 mls/hr 10/06/24 02:25 10/09/24 05:16 Normal Saline Iv IV CONT 125 mls/hr .Q8H KARAN Administration Metronidazole 500 mg in 100 mls @ 100 mls/hr 10/06/24 14:00 10/09/24 13:02 Flagyl 500 Mg/Iso Soln 100 Ml IVPB 100 mls/hr Q8HR KARAN Administration Ciprofloxacin/Dextrose 100 mls @ 100 mls/hr 10/06/24 17:00 10/09/24 05:17 Cipro 200 Mg/D5w 100 Ml IVPB 100 mls/hr Q12H KARAN Administration Methylprednisolone Sodium Succinate 30 mg 10/06/24 17:00 10/09/24 08:57 Methylprednisolone Sod Succ 40 Mg Vial IV PUSH 30 mg BID KARAN Administration Morphine Sulfate 4 mg 10/06/24 22:58 10/09/24 11:16 Morphine Sulfate (*Crx) 4 Mg/Ml Inj IV PUSH 4 mg Q4H PRN Administration Pain Rated 7-10 Ondansetron HCl 4 mg 10/06/24 02:24 10/09/24 11:16 Ondansetron Inj 4 Mg/2 Ml Vial IV PUSH 4 mg Q4H PRN Administration Nausea Polyethylene Glycol 119 gm 10/10/24 00:05 Polyethylene Glycol 3350 238 Gm Bottle PO 10/10/24 00:06 ONCE ONE Polyethylene Glycol 119 gm 10/10/24 05:00 Polyethylene Glycol 3350 238 Gm Bottle PO 10/10/24 05:01 ONCE ONE Prednisone 40 mg 10/06/24 11:40 10/06/24 12:05 Prednisone 20 Mg Tablet PO 40 mg DAILY KARAN Administration Radiology Results: ITS Impressions Abdomen/Pelvis CT 10/05/24 23:48 IMPRESSION: 1. Hepatomegaly with fat infiltration. 2. Inflammatory changes seen anterior to the sacrum and posterior to the rectum. Follow-up and further evaluation advised. Possible soft tissue density on the left side of the anus. 3. Soft tissue density in the area of the appendix to the cecum clinical correlation and follow-up advised. 4. Possible fibroid in the uterus. Ultrasound evaluation advised. 5. Minimal thickening in the terminal ileum area.
[2024-10-09 20:45] VITALS: BP 163/92; PULSE 68; RESP 18; TEMP 36.5; O2SAT 98
[2024-10-10] VITALS (7 sets, daily range): BP systolic 125–167; BP diastolic 70–90; PULSE 70–89; RESP 16–18; TEMP 36.1–37; O2SAT 96–100
[2024-10-10] MEDS: polyethylene glycoL 3350 238 GM BOTTLE 119 GM PO (00:15)
[2024-10-10] MEDS: ONDANSETRON INJ 4 MG/2 ML VIAL IV PUSH ×2 (05:28→18:28)
[2024-10-10] MEDS: CIPROFLOXACIN 200 MG/D5W 100ML 100 ML 100 MG IVPB (05:29)
[2024-10-10] MEDS: metroNIDAZOLE 500 MG/ISO 100ML 500 MG/100 ML BAG 100 MG IVPB (05:29)
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
[2024-10-10] MEDS: LACTATED RINGERS 1,000 ML 150 ML IV CONT (08:34)
--- NOTE | 2024-10-10 12:37 | P.PNIM_ITS ---
Progress Note: A&P Assessment and Plan (1) Crohn's disease: Qualifiers: Digestive disease complication type: with abscess Gastrointestinal tract location: unspecified location Qualified Code(s): K50.914 - Crohn's disease, unspecified, with abscess Code(s): K50.90 - Crohn's disease, unspecified, without complications Status: Chronic Assessment and Plan: patient history of Crohn's disease to include bowel resection with hemicolectomy, patient reports she was taking Humira and is planning to transition to Skyrisi with her follow-up appointment on October [address] Turner. patient came to the emergency department for treatment due to uncontrolled nausea and vomiting and severe abdominal pain. * GI consulted for further recommendation * IV fluids * initially started on oral steroids but with nausea vomiting will transition to IV steroids until tolerating oral intake * will advance diet as tolerated currently on clear liquid * stool studies pending * continue with Cipro and Flagyl will likely need from 7-10 days * CRP was elevated 2.3 will recheck for downtrend * continue with follow-up outpatient with GI on * antiemetics * pain management10/07/2024 * No vomiting * continue with IV steroids transition if tolerating oral intake 10/08/2024 * advance diabetic diet * CRP trending down 10/09/2024: * worsening abdominal pain * NPO status * follow-up CT abdomen ordered by GI to check for perianal Crohn's 10/10: Patient underwent colonoscopy by GI with findings of stenosis of transverse colon and anastomosis site. Continue IV steroids, DC oral steroids Questran 4 g BID DC abx Pelvic MRI ordered, read pending (2) Obesity, morbid, BMI 40.0-49.9: Code(s): E66.01 - Morbid (severe) obesity due to excess calories Status: Acute Assessment and Plan: * encourage increased on physical activity and lifestyle modifications * BMI .39.5 * Diet exercise counseling done. (3) Elevated glucose: Code(s): R73.09 - Other abnormal glucose Status: Acute Assessment and Plan: * patient with no history of diabetes * glucose 158 * A1c pending * last A1c 2022 was 5.2 10/07/24: * A1c 6.2 will discuss with patient regarding initiating medication * diet modifications and lifestyle changes Plan Code status: Full code per patient DVT prophylaxis: SCD Stress ulcer prophylaxis: NA PT/OT notes: Ambulatory Disposition: patient continues admission to the medical unit for treatment Crohn's flare up will continue with IV steroids, pain control and antiemetics until tolerating oral intake GI following for any further recommendations. Patient is ambulatory and plan will be to discharge to medically stable. Time Spent With Patient Time with patient: 25 - 35 minutes Subjective Date/time seen: 10/10/24 12:37 Interval history: Patient underwent Colonoscopy today with findings of stenosis of transverse colon and anastomosis site. GI ordered Pelvic MRI. Patient c/o feeling very cold and having mild pain in abdomen after procedure but no other concerns voiced. Review of Systems Review of Systems: All systems reviewed & are unremarkable except as noted in HPI and below Exam Narrative: * GENERAL: Alert and oriented x 3 pleasant obese female. No acute distress. * EYES: PERRLA. * HEENT: Moist mucous membranes. * LUNGS: Clear to auscultation bilaterally. No accessory muscle use. * CARDIOVASCULAR: Regular rate and rhythm. S1-S2 * ABDOMEN: Soft, tenderness and non-distended. * EXTREMITIES: No edema. Non-tender * SKIN: No rashes or lesions. Skin warm, dry. * NEUROLOGIC: No focal neurological deficits. * PSYCHIATRIC: Appropriate mood and affect. Good judgement and insight. Objective Data Vital Signs Vital Signs: Vital Signs - 24 hr 10/09/24 14:00 10/09/24 20:00 10/09/24 20:45 Temperature 35.9 C L 36.5 C Pulse Rate 74 68 Respiratory Rate 18 18 Blood Pressure 155/75 H 163/92 H Pulse Oximetry 96 98 Oxygen Delivery Room Air 10/10/24 05:58 10/10/24 08:32 10/10/24 09:27 Temperature 36.6 C 36.1 C L Pulse Rate 89 75 70 Respiratory Rate 16 18 18 Blood Pressure 151/72 H 167/79 H 131/70 Pulse Oximetry 98 99 97 Oxygen Delivery Room Air Room Air 10/10/24 09:37 10/10/24 09:47 Temperature Pulse Rate 75 85 Respiratory Rate 18 18 Blood Pressure 125/70 159/90 H Pulse Oximetry 97 100 Oxygen Delivery Room Air Room Air Intake/Output Intake/Output: Intake & Output 10/07/24 10/08/24 10/09/24 10/10/24 23:59 23:59 23:59 23:59 Intake Total 4849.2 2744.6 3100 900 Output Total 122 279 5452 Balance 3999.2 2144.6 2000 900 Meds/Results Medications: Active Medications Generic Name Dose Route Start Last Admin Trade Name Freq PRN Reason Stop Dose Admin Albuterol 1 puff 10/06/24 11:32 Albuterol Sulfate (*Sp) Aerosol 1 Puff INHALATION Q4-6H PRN shortness of breath or wheezing Calcium Carbonate 200 mg 10/08/24 11:12 Calcium Carbonate (Tums) 500 Mg (200 Mg Elemental) PO Q6H PRN Indigestion Cholestyramine Resin 4 gm 10/10/24 18:00 Cholestyramine (W/ Sugar) 4 Gm Powd.Pack PO BID@1000,1800 KARAN Duloxetine HCl 60 mg 10/06/24 11:40 10/09/24 20:30 Duloxetine Hcl 60 Mg Capsule.Dr PO 60 mg Q12HR KARAN Administration Enoxaparin Sodium 40 mg 10/07/24 09:00 10/09/24 08:58 Enoxaparin 40 Mg/0.4 Ml Syringe SUB-Q 40 mg DAILY KARAN Administration Methylprednisolone Sodium Succinate 30 mg 10/06/24 17:00 10/09/24 16:43 Methylprednisolone Sod Succ 40 Mg Vial IV PUSH 30 mg BID KARAN Administration Morphine Sulfate 4 mg 10/06/24 22:58 10/09/24 11:16 Morphine Sulfate (*Crx) 4 Mg/Ml Inj IV PUSH 4 mg Q4H PRN Administration Pain Rated 7-10 Ondansetron HCl 4 mg 10/06/24 02:24 10/10/24 05:28 Ondansetron Inj 4 Mg/2 Ml Vial IV PUSH 4 mg Q4H PRN Administration Nausea Radiology Results: ITS Impressions Abdomen/Pelvis CT 10/05/24 23:48 IMPRESSION: 1. Hepatomegaly with fat infiltration. 2. Inflammatory changes seen anterior to the sacrum and posterior to the rectum. Follow-up and further evaluation advised. Possible soft tissue density on the left side of the anus. 3. Soft tissue density in the area of the appendix to the cecum clinical correlation and follow-up advised. 4. Possible fibroid in the uterus. Ultrasound evaluation advised. 5. Minimal thickening in the terminal ileum area. Pulse Oximetry SpO2 results: 98-100% on room air Attestation: I personally reviewed and interpreted this pulse oximetry as follows: Interpretation: No need for supplemental oxygenation at this time Quality VTE Prophylaxis VTE prophylaxis: pharmacologic ordered Dictation performed by [employer] direct speech recognition software, therefore zigzag appliquer variants and typographical errors may occur. Hospitalist [facility] Advance Care Plan I have confirmed that the patient's Advanced Care Plan is present, code status is documented, or surrogate decision maker is listed in patient medical record.: Yes Medication Reconciliation I have utilized all available resources to obtain, update and review the patients current medications (includes all prescriptions, OTC, herbals, cannabis, and nutritional supplements).: Yes
--- NOTE | 2024-10-10 14:20 | P.PNGI_ITS ---
Subjective Date/time seen: 10/10/24 14:20 Interval history: Colonoscopy report reveals a severe, inflammatory stricture at the ileocolonic anastomosis, preventing further proximal passage of the scope. This finding, in conjunction with CT scan evidence of ileal inflammation, strongly suggests severe ileal Crohn's disease. Antibiotic therapy has been discontinued, given the strong likelihood that Crohn's disease is the underlying cause of her current clinical presentation. The patient is currently receiving intravenous Solu-Medrol 60 mg daily. Patient is apparently approved to receive Skyrizi according to her new insurance policy. Cholestyramine 4 grams twice daily has been prescribed to manage her diarrhea, which may have a component of small bowel bacterial overgrowth secondary to the absence of the ileocecal valve and the ileocolonic anastomosis. A pelvic MRI was obtained today, but the official report is pending Objective Data Vital Signs Vital Signs: Vital Signs - 24 hr 10/09/24 20:00 10/09/24 20:45 10/10/24 05:58 Temperature 97.7 F 98 F Pulse Rate 68 89 Respiratory Rate 18 16 Blood Pressure 163/92 H 151/72 H Pulse Oximetry 98 98 Oxygen Delivery Room Air 10/10/24 08:32 10/10/24 09:27 10/10/24 09:37 Temperature 97 F L Pulse Rate 75 70 75 Respiratory Rate 18 18 18 Blood Pressure 167/79 H 131/70 125/70 Pulse Oximetry 99 97 97 Oxygen Delivery Room Air Room Air Room Air 10/10/24 09:47 Temperature Pulse Rate 85 Respiratory Rate 18 Blood Pressure 159/90 H Pulse Oximetry 100 Oxygen Delivery Room Air Intake/Output Intake/Output: Intake & Output 10/07/24 10/08/24 10/09/24 10/10/24 23:59 23:59 23:59 23:59 Intake Total 4849.2 2744.6 3100 1020 Output Total 004 229 0326 Balance 3999.2 2144.6 2000 1020 Meds/Results Medications: Active Medications Generic Name Dose Route Start Last Admin Trade Name Freq PRN Reason Stop Dose Admin Albuterol 1 puff 10/06/24 11:32 Albuterol Sulfate (*Sp) Aerosol 1 Puff INHALATION Q4-6H PRN shortness of breath or wheezing Calcium Carbonate 200 mg 10/08/24 11:12 Calcium Carbonate (Tums) 500 Mg (200 Mg Elemental) PO Q6H PRN Indigestion Cholestyramine Resin 4 gm 10/10/24 18:00 Cholestyramine (W/ Sugar) 4 Gm Powd.Pack PO BID@1000,1800 REPLACED BY [facility] Duloxetine HCl 60 mg 10/06/24 11:40 10/10/24 13:15 Duloxetine Hcl 60 Mg Capsule.Dr PO Not Given Q12HR REPLACED BY [facility] Enoxaparin Sodium 40 mg 10/07/24 09:00 10/10/24 13:15 Enoxaparin 40 Mg/0.4 Ml Syringe SUB-Q Not Given DAILY REPLACED BY [facility] Methylprednisolone Sodium Succinate 30 mg 10/06/24 17:00 10/10/24 13:15 Methylprednisolone Sod Succ 40 Mg Vial IV PUSH Not Given BID REPLACED BY [facility] Morphine Sulfate 4 mg 10/06/24 22:58 10/09/24 11:16 Morphine Sulfate (*Crx) 4 Mg/Ml Inj IV PUSH 4 mg Q4H PRN Administration Pain Rated 7-10 Ondansetron HCl 4 mg 10/06/24 02:24 10/10/24 05:28 Ondansetron Inj 4 Mg/2 Ml Vial IV PUSH 4 mg Q4H PRN Administration Nausea Radiology Results: ITS Impressions Abdomen/Pelvis CT 10/05/24 23:48 IMPRESSION: 1. Hepatomegaly with fat infiltration. 2. Inflammatory changes seen anterior to the sacrum and posterior to the rectum . Follow-up and further evaluation advised. Possible soft tissue density on the left side of the anus. 3. Soft tissue density in the area of the appendix to the cecum clinical correlation and follow-up advised. 4. Possible fibroid in the uterus. Ultrasound evaluation advised. 5. Minimal thickening in the terminal ileum area.
[2024-10-10 17:29] LABS: Campylobacter Group NOT DETECTED (NOT DETECTED); Norovirus GI/GII NOT DETECTED (NOT DETECTED); Rotavirus A NOT DETECTED (NOT DETECTED); Salmonella species NOT DETECTED (NOT DETECTED); Shiga Toxin 1 NOT DETECTED (NOT DETECTED); Shigella Species NOT DETECTED (NOT DETECTED); Vibrio Group NOT DETECTED (NOT DETECTED); Yersinia Enterolytica NOT DETECTED (NOT DETECTED)
[2024-10-10] MEDS: methylPREDNISolone SOD SUCC 40 MG VIAL 30 MG IV PUSH (18:08)
[2024-10-10] MEDS: CHOLESTYRAMINE (W/ SUGAR) 4 GM POWD.PACK PO (18:08)
[2024-10-10] MEDS: MORPHINE SULFATE (*CRX) 4 MG/ML INJ IV PUSH (18:28)
[2024-10-10] MEDS: DULoxetine HCL 60 MG CAPSULE.DR PO (19:56)
[2024-10-11 04:49] VITALS: BP 150/71; PULSE 74; RESP 18; TEMP 36.6; O2SAT 98
[2024-10-11] MEDS: methylPREDNISolone SOD SUCC 40 MG VIAL 30 MG IV PUSH ×2 (09:08→16:52)
[2024-10-11] MEDS: CHOLESTYRAMINE (W/ SUGAR) 4 GM POWD.PACK PO ×2 (09:08→16:52)
[2024-10-11] MEDS: DULoxetine HCL 60 MG CAPSULE.DR PO ×2 (09:08→20:37)
[2024-10-11] MEDS: ENOXAPARIN 40 MG/0.4 ML SYRINGE SUB-Q (09:08)
--- NOTE | 2024-10-11 12:10 | P.PNIM_ITS ---
Progress Note: A&P Assessment and Plan (1) Crohn's disease: Qualifiers: Digestive disease complication type: with abscess Gastrointestinal tract location: unspecified location Qualified Code(s): K50.914 - Crohn's disease, unspecified, with abscess Code(s): K50.90 - Crohn's disease, unspecified, without complications Status: Chronic Assessment and Plan: patient history of Crohn's disease to include bowel resection with hemicolectomy, patient reports she was taking Humira and is planning to transition to Skyrisi with her follow-up appointment on October [address] Turner. patient came to the emergency department for treatment due to uncontrolled nausea and vomiting and severe abdominal pain. * GI consulted for further recommendation * IV fluids * initially started on oral steroids but with nausea vomiting will transition to IV steroids until tolerating oral intake * will advance diet as tolerated currently on clear liquid * stool studies pending * continue with Cipro and Flagyl will likely need from 7-10 days * CRP was elevated 2.3 will recheck for downtrend * continue with follow-up outpatient with GI on * antiemetics * pain management10/07/2024 * No vomiting * continue with IV steroids transition if tolerating oral intake 10/08/2024 * advance diabetic diet * CRP trending down 10/09/2024: * worsening abdominal pain * NPO status * follow-up CT abdomen ordered by GI to check for perianal Crohn's 10/10: Patient underwent colonoscopy by GI with findings of stenosis of transverse colon and anastomosis site. Continue IV steroids, DC oral steroids Questran 4 g BID DC abx Pelvic MRI ordered, read pending 10/11: Terminal ileitis, consistent with Crohn disease. 2. 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 No drainable abscess. ok to advance diet to low finer diet, GI MD rounding continue iv abx and iv steroids possible dc over the weekend PT/ OT ordered (2) Obesity, morbid, BMI 40.0-49.9: Code(s): E66.01 - Morbid (severe) obesity due to excess calories Status: Acute Assessment and Plan: * encourage increased on physical activity and lifestyle modifications * BMI .39.5 * Diet exercise counseling done. (3) Elevated glucose: Code(s): R73.09 - Other abnormal glucose Status: Acute Assessment and Plan: * patient with no history of diabetes * glucose 158 * A1c pending * last A1c 2022 was 5.2 10/07/24: * A1c 6.2 will discuss with patient regarding initiating medication * diet modifications and lifestyle changes Subjective Date/time seen: 10/11/24 12:10 Interval history: Pt admitted for Crohns flare Pt having some diarrhea and spots of blood overall doing better tolerating diet. Pt feels medications are helping. Patient underwent Colonoscopy with findings of stenosis of transverse colon and anastomosis site. Pt sp MRI pelvis showing Terminal ileitis, consistent with Crohn disease. 2. 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 No drainable abscess. continue present treatment gi rounding advance diet slowly as tolerated Review of Systems Review of Systems: Pt abdo pains and diarrhea nausea improving Pt tolerating diet well Exam Narrative: * GENERAL: Alert and oriented x 3 pleasant obese female. No acute distress. * EYES: PERRLA. * HEENT: Moist mucous membranes. * LUNGS: Clear to auscultation bilaterally. No accessory muscle use. * CARDIOVASCULAR: Regular rate and rhythm. S1-S2 * ABDOMEN: Soft, tenderness and non-distended. * EXTREMITIES: No edema. Non-tender * SKIN: No rashes or lesions. Skin warm, dry. * NEUROLOGIC: No focal neurological deficits. * PSYCHIATRIC: Appropriate mood and affect. Good judgement and insight. Objective Data Vital Signs Vital Signs: Vital Signs - 24 hr 10/10/24 20:00 10/11/24 04:49 10/11/24 08:00 Temperature 37.0 C 36.6 C Pulse Rate 87 74 Respiratory Rate 18 18 Blood Pressure 143/81 H 150/71 H Pulse Oximetry 96 98 Oxygen Delivery Room Air Intake/Output Intake/Output: Intake & Output 10/08/24 10/09/24 10/10/24 10/11/24 23:59 23:59 23:59 23:59 Intake Total 2744.6 3100 1620 400 Output Total 600 1100 Balance 2144.6 2000 1620 400 Meds/Results Medications: Active Medications Generic Name Dose Route Start Last Admin Trade Name Freq PRN Reason Stop Dose Admin Albuterol 1 puff 10/06/24 11:32 Albuterol Sulfate (*Sp) Aerosol 1 Puff INHALATION Q4-6H PRN shortness of breath or wheezing Calcium Carbonate 200 mg 10/08/24 11:12 Calcium Carbonate (Tums) 500 Mg (200 Mg Elemental) PO Q6H PRN Indigestion Cholestyramine Resin 4 gm 10/10/24 18:00 10/11/24 09:08 Cholestyramine (W/ Sugar) 4 Gm Powd.Pack PO 4 gm BID@1000,1800 KARAN Administration Duloxetine HCl 60 mg 10/06/24 11:40 10/11/24 09:08 Duloxetine Hcl 60 Mg Capsule.Dr PO 60 mg Q12HR KARAN Administration Enoxaparin Sodium 40 mg 10/07/24 09:00 10/11/24 09:08 Enoxaparin 40 Mg/0.4 Ml Syringe SUB-Q 40 mg DAILY KARAN Administration Methylprednisolone Sodium Succinate 30 mg 10/06/24 17:00 10/11/24 09:08 Methylprednisolone Sod Succ 40 Mg Vial IV PUSH 30 mg BID KARAN Administration Morphine Sulfate 4 mg 10/06/24 22:58 10/10/24 18:28 Morphine Sulfate (*Crx) 4 Mg/Ml Inj IV PUSH 4 mg Q4H PRN Administration Pain Rated 7-10 Ondansetron HCl 4 mg 10/06/24 02:24 10/10/24 18:28 Ondansetron Inj 4 Mg/2 Ml Vial IV PUSH 4 mg Q4H PRN Administration Nausea Radiology Results: ITS Impressions Abdomen/Pelvis CT 10/05/24 23:48 IMPRESSION: 1. Hepatomegaly with fat infiltration. 2. Inflammatory changes seen anterior to the sacrum and posterior to the rectum. Follow-up and further evaluation advised. Possible soft tissue density on the left side of the anus. 3. Soft tissue density in the area of the appendix to the cecum clinical correlation and follow-up advised. 4. Possible fibroid in the uterus. Ultrasound evaluation advised. 5. Minimal thickening in the terminal ileum area. Pelvis MRI 10/10/24 15:33 IMPRESSION: 1. Terminal ileitis, consistent with Crohn disease. 2. 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 No drainable abscess. Labs Labs: Laboratory Results - last 24 hr 10/07/24 18:44 Stool Rotavirus (PCR) Not detected Stool Yersinia (PCR) Not detected Stool Vibrio (PCR) Not detected Stl Norovirus GI/GII PCR Not detected Campylobacter Group (PCR) Not detected Salmonella (PCR) Not detected Shiga Toxin 1 Not detected Shiga Toxin 2 Not detected Shigella species (PCR) Not detected
--- NOTE | 2024-10-11 13:03 | WPDGIPROGNO ---
Progress Note: A&P Assessment and Plan (1) Crohn's disease: Qualifiers: Digestive disease complication type: with abscess Gastrointestinal tract location: unspecified location Qualified Code(s): K50.914 - Crohn's disease, unspecified, with abscess Code(s): K50.90 - Crohn's disease, unspecified, without complications Status: Chronic Assessment and Plan: The patient has active Crohn's disease involving the ileocolonic anastomosis. 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 She is currently well-managed with intravenous steroids and cholestyramine, which was initiated last night to address diarrhea likely secondary to her post-surgical anatomy. Approval for Skyrizi therapy is pending. If the patient's condition remains stable tomorrow, discharge home is planned with a prednisone dose of 40 mg daily. Will obtain CRP, CBC and CMP for tomorrow. Follow-up in our GI Clinic is scheduled for steroid tapering and initiation of Skyrizi therapy as soon as approval is obtained. Subjective Date/time seen: 10/11/24 13:03 Interval history: The patient feels much better, had less diarrhea and abdominal pain. She is able to tolerate full liquid diet, currently being advanced to low-fiber diet. Exam Narrative: Abdomen: Nontender, nondistended, no rebound. The rest of the exam is unchanged. Objective Data Vital Signs Vital Signs: Vital Signs - 24 hr 10/10/24 20:00 10/11/24 04:49 10/11/24 08:00 Temperature 98.6 F 97.9 F Pulse Rate 87 74 Respiratory Rate 18 18 Blood Pressure 143/81 H 150/71 H Pulse Oximetry 96 98 Oxygen Delivery Room Air Intake/Output Intake/Output: Intake & Output 10/08/24 10/09/24 10/10/24 10/11/24 23:59 23:59 23:59 23:59 Intake Total 2744.6 3100 1620 400 Output Total 600 1100 Balance 2144.6 2000 1620 400 Meds/Results Medications: Active Medications Generic Name Dose Route Start Last Admin Trade Name Freq PRN Reason Stop Dose Admin Albuterol 1 puff 10/06/24 11:32 Albuterol Sulfate (*Sp) Aerosol 1 Puff INHALATION Q4-6H PRN shortness of breath or wheezing Calcium Carbonate 200 mg 10/08/24 11:12 Calcium Carbonate (Tums) 500 Mg (200 Mg Elemental) PO Q6H PRN Indigestion Cholestyramine Resin 4 gm 10/10/24 18:00 10/11/24 09:08 Cholestyramine (W/ Sugar) 4 Gm Powd.Pack PO 4 gm BID@1000,1800 KARNA Administration Duloxetine HCl 60 mg 10/06/24 11:40 10/11/24 09:08 Duloxetine Hcl 60 Mg Capsule.Dr PO 60 mg Q12HR KARAN Administration Enoxaparin Sodium 40 mg 10/07/24 09:00 10/11/24 09:08 Enoxaparin 40 Mg/0.4 Ml Syringe SUB-Q 40 mg DAILY KARAN Administration Methylprednisolone Sodium Succinate 30 mg 10/06/24 17:00 10/11/24 09:08 Methylprednisolone Sod Succ 40 Mg Vial IV PUSH 30 mg BID KARAN Administration Morphine Sulfate 4 mg 10/06/24 22:58 10/10/24 18:28 Morphine Sulfate (*Crx) 4 Mg/Ml Inj IV PUSH 4 mg Q4H PRN Administration Pain Rated 7-10 Ondansetron HCl 4 mg 10/06/24 02:24 10/10/24 18:28 Ondansetron Inj 4 Mg/2 Ml Vial IV PUSH 4 mg Q4H PRN Administration Nausea Radiology Results: ITS Impressions Abdomen/Pelvis CT 10/05/24 23:48 IMPRESSION: 1. Hepatomegaly with fat infiltration. 2. Inflammatory changes seen anterior to the sacrum and posterior to the rectum. Follow-up and further evaluation advised. Possible soft tissue density on the left side of the anus. 3. Soft tissue density in the area of the appendix to the cecum clinical correlation and follow-up advised. 4. Possible fibroid in the uterus. Ultrasound evaluation advised. 5. Minimal thickening in the terminal ileum area. Pelvis MRI 10/10/24 15:33 IMPRESSION: 1. Terminal ileitis, consistent with Crohn disease. 2. 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 No drainable abscess. Labs Labs: Laboratory Results - last 24 hr 10/07/24 18:44 Stool Rotavirus (PCR) Not detected Stool Yersinia (PCR) Not detected Stool Vibrio (PCR) Not detected Stl Norovirus GI/GII PCR Not detected Campylobacter Group (PCR) Not detected Salmonella (PCR) Not detected Shiga Toxin 1 Not detected Shiga Toxin 2 Not detected Shigella species (PCR) Not detected
[2024-10-11 13:42] VITALS: BP 141/69; PULSE 89; RESP 18; TEMP 36.9; O2SAT 99
[2024-10-11] MEDS: ONDANSETRON INJ 4 MG/2 ML VIAL IV PUSH ×2 (16:55→23:55)
[2024-10-11] MEDS: MORPHINE SULFATE (*CRX) 4 MG/ML INJ IV PUSH ×2 (16:55→23:55)
[2024-10-11 22:00] VITALS: BP 144/79; PULSE 86; RESP 20; TEMP 36.2; O2SAT 98
[2024-10-12 05:57] LABS: Basophils Percent Auto 0.4 % (0.2-1.2); Eosinophils Percent Auto 0.2 % (0-4.4); Hematocrit 46.6 % (37.0-47.0); Hemoglobin 14.4 g/dL (12.0-15.0); Immature Granulocyte Absolute 0.07 K/mm3 (0.00-0.031); Immature Granulocyte Percent A 0.7 % (0-0.5); Lymphocytes Absolute Auto 1.73 K/mm3 (0.9-3.2); Mean Corpuscular HGB Conc 30.9 g/dl (32-36); Mean Corpuscular Volume 93.8 fl (80-100); Mean Platelet Volume 8.4 fl (7.4-10.4); Monocytes Absolute Auto 0.6 K/mm3 (0.1-0.6); Monocytes Percent Auto 6.6 % (2.6-8.5); Neutrophils Absolute Auto 7.1 K/mm3 (1.3-6.7); Neutrophils Percent Auto 74.1 % (45.5-73.1); Platelet Count Result 283 k/mm3 (150-375); Red Blood Count 4.97 M/mm3 (4.2-5.4); Red Cell Distribution Width 13.3 % (11.5-14.5); White Blood Count 9.6 K/mm3 (4.5-10.0)
[2024-10-12 06:00] VITALS: BP 151/79; PULSE 79; RESP 18; TEMP 36.7; O2SAT 96
--- NOTE | 2024-10-12 07:58 | WPDGIPROGNO ---
Progress Note: A&P Assessment and Plan (1) Crohn's disease: Qualifiers: Digestive disease complication type: with abscess Gastrointestinal tract location: unspecified location Qualified Code(s): K50.914 - Crohn's disease, unspecified, with abscess Code(s): K50.90 - Crohn's disease, unspecified, without complications Status: Chronic Assessment and Plan: The patient has severe Crohn's disease involving terminal ileum and anastomotic area. 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 Diarrhea is controlled with cholestyramine twice a day, even having constipation. Therefore, the dose should be reduced to once a day, only at nighttime. She can be safely discharged on oral prednisone while waiting for [facility] approval, hopefully next week. Plan - discharge home - Cholestyramine 4 g at bedtime, make sure to administer at least 3 hours after her last medication - Prednisone 40 mg qD once a day in am. - Appt in GI clinic next week Dr Turner Subjective Date/time seen: 10/12/24 07:58 Interval history: The patient is doing better, in fact, did not have any stool output in the past 24 hours. Abdominal pain has significantly decreased. No further vomiting. Exam Narrative: Abdomen: Nontender, nondistended, no rebound. The rest of the exam is unchanged. Objective Data Vital Signs Vital Signs: Vital Signs - 24 hr 10/11/24 08:00 10/11/24 13:42 10/11/24 22:00 Temperature 98.4 F 97.2 F L Pulse Rate 89 86 Respiratory Rate 18 20 Blood Pressure 141/69 H 144/79 H Pulse Oximetry 99 98 Oxygen Delivery Room Air 10/12/24 06:00 Temperature 98.0 F Pulse Rate 79 Respiratory Rate 18 Blood Pressure 151/79 H Pulse Oximetry 96 Oxygen Delivery Intake/Output Intake/Output: Intake & Output 10/09/24 10/10/24 10/11/24 10/12/24 23:59 23:59 23:59 23:59 Intake Total 3100 1620 860 600 Output Total 1100 Balance 2000 1620 860 600 Meds/Results Medications: Active Medications Generic Name Dose Route Start Last Admin Trade Name Freq PRN Reason Stop Dose Admin Albuterol 1 puff 10/06/24 11:32 Albuterol Sulfate (*Sp) Aerosol 1 Puff INHALATION Q4-6H PRN shortness of breath or wheezing Calcium Carbonate 200 mg 10/08/24 11:12 Calcium Carbonate (Tums) 500 Mg (200 Mg Elemental) PO Q6H PRN Indigestion Cholestyramine Resin 4 gm 10/10/24 18:00 10/11/24 16:52 Cholestyramine (W/ Sugar) 4 Gm Powd.Pack PO 4 gm BID@1000,1800 KARAN Administration Duloxetine HCl 60 mg 10/06/24 11:40 10/11/24 20:37 Duloxetine Hcl 60 Mg Capsule.Dr PO 60 mg Q12HR KARAN Administration Enoxaparin Sodium 40 mg 10/07/24 09:00 10/11/24 09:08 Enoxaparin 40 Mg/0.4 Ml Syringe SUB-Q 40 mg DAILY KARAN Administration Methylprednisolone Sodium Succinate 30 mg 10/06/24 17:00 10/11/24 16:52 Methylprednisolone Sod Succ 40 Mg Vial IV PUSH 30 mg BID KARAN Administration Morphine Sulfate 4 mg 10/06/24 22:58 10/11/24 23:55 Morphine Sulfate (*Crx) 4 Mg/Ml Inj IV PUSH 4 mg Q4H PRN Administration Pain Rated 7-10 Ondansetron HCl 4 mg 10/06/24 02:24 10/11/24 23:55 Ondansetron Inj 4 Mg/2 Ml Vial IV PUSH 4 mg Q4H PRN Administration Nausea Radiology Results: ITS Impressions Abdomen/Pelvis CT 10/05/24 23:48 IMPRESSION: 1. Hepatomegaly with fat infiltration. 2. Inflammatory changes seen anterior to the sacrum and posterior to the rectum. Follow-up and further evaluation advised. Possible soft tissue density on the left side of the anus. 3. Soft tissue density in the area of the appendix to the cecum clinical correlation and follow-up advised. 4. Possible fibroid in the uterus. Ultrasound evaluation advised. 5. Minimal thickening in the terminal ileum area. Pelvis MRI 10/10/24 15:33 IMPRESSION: 1. Terminal ileitis, consistent with Crohn disease. 2. 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 No drainable abscess. Labs Labs: Laboratory Results - last 24 hr 10/12/24 05:19 WBC 9.6 RBC 4.97 Hgb 14.4 Hct 46.6 MCV 93.8 MCH 29.0 MCHC 30.9 L RDW 13.3 Plt Count 283 MPV 8.4 Immature Gran % (Auto) 0.7 H Neut % (Auto) 74.1 H Lymph % (Auto) 18.0 L [place] % (Auto) 6.6 Eos % (Auto) 0.2 Baso % (Auto) 0.4 Lymph # (Auto) 1.73 [place] # (Auto) 0.6 Eos # (Auto) 0.0 Baso # (Auto) 0.0 Abs Immat Gran (auto) 0.07 H Absolute Neuts (auto) 7.1 H Absolute Nucleated RBC 0.000 Nucleated RBC % 0.0
[2024-10-12] MEDS: DULoxetine HCL 60 MG CAPSULE.DR PO (09:52)
[2024-10-12] MEDS: methylPREDNISolone SOD SUCC 40 MG VIAL 30 MG IV PUSH (09:52)
[2024-10-12] MEDS: ENOXAPARIN 40 MG/0.4 ML SYRINGE SUB-Q (09:53)
--- NOTE | 2024-10-12 11:07 | P.DS_ITS ---
DS: Admitting Diagnosis Discharge Date 06/28/24 Admitting Diagnosis abdominal pain DS: Discharge Diagnosis Discharge Diagnosis (1) Sepsis: Qualifiers: Sepsis acute organ dysfunction status: without acute organ dysfunction Sepsis type: sepsis due to unspecified organism Qualified Code(s): A41.9 - Sepsis, unspecified organism Code(s): A41.9 - Sepsis, unspecified organism Status: Acute Assessment and Plan: Resolved (2) Crohn's disease: Qualifiers: Digestive disease complication type: with abscess Gastrointestinal tract location: unspecified location Qualified Code(s): K50.914 - Crohn's dise ase, unspecified, with abscess Code(s): K50.90 - Crohn's disease, unspecified, without complications Status: Chronic Assessment and Plan: patient history of Crohn's disease to include bowel resection with hemicolectomy, patient reports she was taking Humira and is planning to transition to Skyrisi with her follow-up appointment on October [address] Turner. patient came to the emergency department for treatment due to uncontrolled nausea and vomiting and severe abdominal pain. * GI consulted for further recommendation * IV fluids * initially started on oral steroids but with nausea vomiting will transition to IV steroids until tolerating oral intake * will advance diet as tolerated currently on clear liquid * stool studies pending * continue with Cipro and Flagyl will likely need from 7-10 days * CRP was elevated 2.3 will recheck for downtrend * continue with follow-up outpatient with GI on * antiemetics * pain management10/07/2024 * No vomiting * continue with IV steroids transition if tolerating oral intake 10/08/2024 * advance diabetic diet * CRP trending down 10/09/2024: * worsening abdominal pain * NPO status * follow-up CT abdomen ordered by GI to check for perianal Crohn's 10/10: Patient underwent colonoscopy by GI with findings of stenosis of transverse colon and anastomosis site. continue oral steroids Questran 4 g BID DC abx Pelvic MRI ordered, read pending 10/11: Terminal ileitis, consistent with Crohn disease. 2. 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 No drainable abscess. ok to advance diet to low finer diet, GI MD rounding continue iv abx and iv steroids possible dc over the weekend PT/ OT ordered 10/12 ok to dc on oral steroids and questran with GI MD follow up (3) Perirectal abscess: Code(s): K61.1 - Rectal abscess Status: Acute Assessment and Plan: see above as per Gi note - The patient has severe Crohn's disease involving terminal ileum and anastomotic area. 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 Diarrhea is controlled with cholestyramine twice a day, even having constipation. Therefore, the dose should be reduced to once a day, only at nighttime. She can be safely discharged on oral prednisone while waiting for [facility] approval, hopefully next week. DS: Summary Hospital Course Hospital Course: Patient comfortable at bedside, patient with perianal abscess, noted improvement today Noted she has about 20 to 25 to episodes of diarrhea per day at baseline due to crohn's however she denies any recent exacerbation and no bloody diarrhea, patient is seen by surgery service does not recommend any surgical intervention. continued and further recommend to follow. However on 06/27 patient complained of more diarrhea and abdominal cramping, patient was seen by GI and recommended CPM, today patient stats feeling better and number of BM have improved, stats she is ready to go home, her is present in the room. will discharge patient today. Time Spent with Patient Time attestation: Total time spent providing and/or coordinating discharge services:55 minutes on day of dc Exam Narrative: Patient is comfortable, NAD HEENT: eyes are clear and none icteric LUNGS:CTA HEART: RR S1S2 ABD: BS+, Soft and nontender Lower extremities: no edema SKIN: nonjaundiced Neuro: grossly intact. DS: Data Data Completed and Pending Completed studies during hospitalization: Pending at discharge 10/10/24 09:24 Surgical [PTH] Routine Labs on day of discharge: Labs from last 24 hours 10/12/24 05:19 WBC 9.6 RBC 4.97 Hgb 14.4 Hct 46.6 MCV 93.8 MCH 29.0 MCHC 30.9 L RDW 13.3 Plt Count 283 MPV 8.4 Immature Gran % (Auto) 0.7 H Neut % (Auto) 74.1 H Lymph % (Auto) 18.0 L [place] % (Auto) 6.6 Eos % (Auto) 0.2 Baso % (Auto) 0.4 Lymph # (Auto) 1.73 [place] # (Auto) 0.6 Eos # (Auto) 0.0 Baso # (Auto) 0.0 Abs Immat Gran (auto) 0.07 H Absolute Neuts (auto) 7.1 H Absolute Nucleated RBC 0.000 Nucleated RBC % 0.0 Sodium Pending Potassium Pending Chloride Pending Carbon Dioxide Pending Anion Gap Pending BUN Pending Creatinine Pending Estim Creat Clear Calc Pending Estimated GFR Pending Glucose Pending Calcium Pending Total Bilirubin Pending AST Pending ALT Pending Alkaline Phosphatase Pending C-Reactive Protein Pending Total Protein Pending Albumin Pending Discharge Plan Discharge Attending physician on discharge: Wilfredo Rico Discharging Clinician: Joy Harden Anticipated Discharge Date/Time: 10/09/24 09:07 Patient Disposition: Home, Self-Care Activity: unlimited and as tolerated Diet: low fiber Discharge Instructions: You are being discharged to home after treatment for Crohn's disease * Please take prednisone as prescribed * recommend low fiber diet advance as tolerated * keep follow-up with GI doctor as scheduled How can you care for yourself at home? ? Keep track of any new symptoms or changes in your symptoms. ? Rest until you feel better. ? Be safe with medicines. Take your medicines exactly as prescribed. Call your doctor if you think you are having a problem with your medicine. ? Do not drive after taking a prescription pain medicine. ? Ensure to follow-up with primary care physician as indicated and provide updated medication list provided to you at discharge. When should you call for help? Call 911 anytime you think you may need emergency care. For example, call if: ? You passed out (lost consciousness). Call your doctor now or seek immediate medical care if: ? You have new symptoms like fever, difficulty breathing, Chest pain, vomiting, or rash. ? You have new or different pain. ? You are confused and are having trouble thinking clearly. ? Your symptoms are getting worse. Watch closely for changes in your health, and be sure to contact your doctor if: ? You do not get better as expected. Patient Instructions: Antibiotic Form, Crohn Disease (DC), Low Fiber Diet (DC) Patient Language: Korean Stand Alone Forms: General Discharge Information Follow-up/Referrals: Brooklynn Pennington NP [Primary Care Provider] - 4 Weeks Norberto Gudino MD [Physician] - Keep Reg. Scheduled Appt. (in 1-2 weeks time ) Discharge Medications: New cholestyramine (with sugar) 4 gram Powder In Packet 1 ea PO BID@1000,1800 Qty: 30 0RF Continued albuterol sulfate 90 mcg/actuation HFA aerosol inhaler 1 inh inhalation Q4-6H PRN (Reason: shortness of breath or wheezing) Qty: 8.5 1RF duloxetine 60 mg capsule,delayed release(DR/EC) 60 mg PO BID Qty: 60 11RF tizanidine 4 mg tablet 2 - 4 mg PO TID PRN (Reason: muscle spasticity) Qty: 90 3RF simethicone 80 mg tablet,chewable 80 mg PO QID PRN (Reason: Gastric Reflux) lidocaine HCl [Aspercreme (lidocaine HCl)] 4 % Liquid Roll-On 1 ea TOPICAL PRN PRN (Reason: Pain) prochlorperazine maleate [Compazine] 10 mg tablet 10 mg PO Q8H PRN (Reason: Nausea And Vomiting) Qty: 30 0RF Changed prednisone 20 mg tablet 40 mg PO DAILY Qty: 30 4RF Date of admission: 10/07/24 14:30 Primary Care Provider: Brooklynn Pennington Admitting Provider: Delfina Zuñiga Attending physician on admission: Joy Harden Condition: Improved
[2024-10-12 11:58] LABS: Alanine Aminotransferase 38 U/L (6-35); Albumin Level 3.5 g/dL (3.5-5.1); Alkaline Phosphatase 150 U/L (38-126); Anion Gap 12 mmol/L (4-12); Aspartate Amino Transferase 68 U/L (14-36); Bilirubin,Total 0.5 mg/dL (0.2-1.3); Blood Urea Nitrogen 9 mg/dL (7-17); CRP < 0.5 mg/dL (<1.0); Carbon Dioxide 21 mmol/L (22-30); Chloride 107 mmol/L (98-107); Estimated CRCL calculation 77 ml/min; Estimated Glomerular Filt Rate > 60; Glucose 115 mg/dL (65-110); Potassium 4.2 mmol/L (3.4-5.0); Sodium 140 mmol/L (137-145)
== END 2024-10-12 12:53 | disposition home or self-care (01) | DRG 872 ==
LOC: ANHED 10-06 02:37 → ANH3MED 10-06 03:09
PROVIDERS: Internal Medicine Gastroenterology; Nurse Practitioner Family; Physician Assistant; Admitting Provider Internal Medicine; Emergency Provider Physician Assistant; PCP Nurse Practitioner Family; Visit Provider Family Medicine
PROC: 0DJD8ZZ Inspection of Lower Intestinal Tract, Via Natural or Artificial Opening Endoscopic (ICD-10-PCS; CPT 45378; principal; 2024-10-10 14:00)
DX: A41.9 Sepsis, unspecified organism (principal); K50.013 Crohn's disease of small intestine with fistula; K50.018 Crohn's disease of small intestine with other complication; K60.50 Anorectal fistula, unspecified; K63.89 Other specified diseases of intestine; I10 Essential (primary) hypertension; R73.09 Other abnormal glucose; G47.33 Obstructive sleep apnea (adult) (pediatric); E78.5 Hyperlipidemia, unspecified; M19.90 Unspecified osteoarthritis, unspecified site; E66.01 Morbid (severe) obesity due to excess calories; Z68.39 Body mass index [BMI] 39.0-39.9, adult; M85.80 Other specified disorders of bone density and structure, unspecified site; Z98.1 Arthrodesis status; Z87.891 Personal history of nicotine dependence
CPT/HCPCS: 36415; 72197; 74177; 80048; 80053; 80074; 81003; 83036; 83690; 83735; 85025; 85027; 86140; 87045; 87427; 87449; 87493; 87506; 87637; 88305; 96361; 96374; 96375; 99285; A9270; A9577; G0378; J0744; J1650; J1836; J2003; J2270; J2371; J2405; J2704; J2919; J3480; J7030; J7040; J7120; J7512; Q9967

== ENCOUNTER 2024-10-15 11:11 | Outpatient (CLI) | payer MEDICARE, SELFPAY ==
[2024-10-18 12:47] LABS: NIL 0.01 IU/mL; Quantiferon TB Plus, 1T NEGATIVE (NEGATIVE)
== END 2024-10-15 11:12 | disposition home or self-care (01) ==
LOC: ANHLAB 11:13
PROVIDERS: PCP Nurse Practitioner Family; Visit Provider Nurse Practitioner Family
DX: K50.914 Crohn's disease, unspecified, with abscess (principal); Z79.899 Other long term (current) drug therapy
CPT/HCPCS: 36415; 86480

== ENCOUNTER 2024-10-20 09:21 | Observation (INO) | payer MEDICARE, SELFPAY ==
[2024-10-20] VITALS (24 sets, daily range): BP systolic 126–159; BP diastolic 62–88; PULSE 81–99; RESP 12–96; TEMP 36.2–37; O2SAT 96–100; BMI 36.8
--- NOTE | ~2024-10-20 | CT_ITS ---
EXAMINATION: CT abdomen pelvis w con DATE: 10/20/2024 11:54 INDICATION: Epigastric abdominal pain. TECHNIQUE: Computed tomography (CT) of the abdomen and pelvis was performed with 100 mL Omnipaque 350 intravenous contrast. Automated exposure control and iterative reconstruction technique were employe d. The dose-length product was 1138.84 mGy-cm. COMPARISON: CT abdomen and pelvis 10/05/2024, 06/23/24 FINDINGS: The visualized portions of lung bases demonstrate mild atelectasis on the right. Calcified right lung nodules are consistent with old granulomatous disease. No pleural effusion. The heart size is normal. No pericardial effusion. The liver is normal. The gallbladder is distended. Calcification s in the spleen are consistent with old granulomatous disease. The pancreas, adrenal glands, and kidn eys are normal. There is a wall thickening of the anus and rectum with perirectal and presacral absce ss measuring 4.0 x 0.6 x 0.7 cm. There is an ileocolic anastomosis. There are no pathologically enlar ged lymph nodes. There is no free intraperitoneal fluid. There is a 19 mm fibroid in the uterus. Ther e is mild lumbar spondylosis. There are bridging endplate osteophytes at multiple levels in the spine , consistent with diffuse idiopathic skeletal hyperostosis (DISH). There is mild chronic anterior wed ging of T10-L1 vertebral bodies. IMPRESSION: 1. Chronic anorectal inflammation with chronic small perirectal and presacral abscess. 2. Gallbladder distention, which may be secondary to fasting. Gallbladder with physical exam to exclu de acute cholecystitis. Reviewed, dictated and finalized at location A. TUB COOKER OPERATOR IMPRESSION: 1. Chronic anorectal inflammation with chronic small perirectal and presacral a bscess. 2. Gallbladder distention, which may be secondary to fasting. Gallbladder with physical exam to exclude acute cholecystitis.
--- NOTE | ~2024-10-20 | MR_ITS ---
MRI of the pelvis CLINICAL HISTORY: Pelvic abscess COMPARISON: CT dated 10/20/2024, MR dated 10/10/2024 TECHNIQUE: Axial T1-weighted in and out of phase images, T2-weighted, and T2 fat-sat images, and gretchen nal T2-weighted images were performed. Following intravenous administration of 20 cc MultiHance gadol inium, T1-weighted fat-sat imaging was performed in the axial and coronal planes. FINDINGS: Again identified is mild wall thickening and inflammatory change at the distal rectum/anus with extension of thin tract of fluid to the presacral region, terminating in the 10 mm fluid collect ion. These findings are essentially unchanged. Possible mild wall thickening of the distal ileum. No other abscess or inflammatory change seen in the pelvis. Urinary bladder unremarkable. Stable uterine fibroid. 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 No drainable abscess. Reviewed, dictated and finalized at [facility]. TANCE ABUSE TECHNICIAN IMPRESSION: Stable anorectal inflammatory change with fistula extending to the presacral re gion. No drainable abscess.
--- NOTE | ~2024-10-20 | US_ITS ---
EXAMINATION: US abdomen limited DATE: 10/20/2024 13:32 INDICATION: Right upper quadrant abdominal pain. TECHNIQUE: Multiple grayscale and Doppler ultrasound images of the abdomen were obtained. COMPARISON: CT abdomen and pelvis 10/20/2024 FINDINGS: The visualized portions of the head and body of the pancreas are normal. There is diffuse h epatic steatosis. The gallbladder is distended and contains sludge. No gallstones or gallbladder wall thickening. There is no sonographic Barakat's sign. The common duct is normal and measures 5 mm. IMPRESSION: 1. Gallbladder distention, which may be secondary to fasting. 2. Diffuse hepatic steatosis. Reviewed, dictated and finalized at location A. ITE POLISHER
[2024-10-20] MEDS: MORPHINE SULFATE (*CRX) 4 MG/ML INJ IV PUSH (10:33)
[2024-10-20] MEDS: METOCLOPRAMIDE HCL INJ 10 MG/2 ML VIAL IV PUSH (10:33)
[2024-10-20 10:48] LABS: Alanine Aminotransferase 66 U/L (6-35); Albumin Level 3.8 g/dL (3.5-5.1); Alkaline Phosphatase 170 U/L (38-126); Anion Gap 8 mmol/L (4-12); Aspartate Amino Transferase 47 U/L (14-36); Bilirubin,Total 0.9 mg/dL (0.2-1.3); Blood Urea Nitrogen 12 mg/dL (7-17); Calcium 9.4 mg/dL (8.4-10.2); Carbon Dioxide 25 mmol/L (22-30); Chloride 102 mmol/L (98-107); Estimated CRCL calculation 83 ml/min; Estimated Glomerular Filt Rate > 60; Glucose 147 mg/dL (65-110); Potassium 3.3 mmol/L (3.4-5.0); Sodium 135 mmol/L (137-145)
--- NOTE | 2024-10-20 10:56 | ED.NAVMDI ---
HPI - Nausea/Vomiting/Diarrhea General Chief complaint: Nausea/Vomiting/Diarrhea Stated complaint: N/V, weight loss, has chrons Time Seen by Provider: 10/20/24 09:54 Source: patient Mode of arrival: ambulatory Limitations: no limitations History of Present Illness HPI Narrative: This is a 64-year-old female, with history of Crohn's, recently discharged from this hospital 8 days ago, returns to emergency department complaining of persistent vomiting with small flecks of blood. Patient states she is able to tolerate some clear liquids and though has had several episodes of vomiting every day. She states at the end of these episodes she noticed small flecks of blood in the vomit. She denies bleeding elsewhere. She complains of generalized fatigue and sharp epigastric abdominal pain, without radiation, different than previous Crohn's flares. Related Data Home Medications ?Medication ?Instructions ?Recorded ?Confirmed ?Last Taken ?Type simethicone 80 mg chewable tablet 80 mg PO QID PRN Gastric Reflux 05/10/24 10/20/24 09/18/24 History lidocaine HCl 4 % topical liquid 1 ea topical PRN PRN Pain 06/23/24 10/20/24 Unknown History roll-on (Aspercreme (lidocaine HCl)) Allergies Allergy/AdvReac Type Severity Reaction Status Date / Time cyclobenzaprine Allergy Mild HYPERACTIVI Verified 10/20/24 09:37 TY infliximab (From Remicade) Allergy Mild Hives Verified 10/20/24 09:37 latex Allergy Mild Rash Verified 10/20/24 09:37 lisinopril Allergy Mild cough Verified 10/20/24 09:37 contact metal agent Allergy Hives Verified 10/20/24 09:37 hydrocodone AdvReac Mild N/V Verified 10/20/24 09:37 clindamycin AdvReac Unknown other Verified 10/20/24 09:37 hydromorphone (From Dilaudid) AdvReac Vomiting Verified 10/20/24 09:37 oxycodone AdvReac Nausea and Verified 10/20/24 09:37 Vomiting palm oil Allergy Intermediate Hives Uncoded 10/20/24 09:37 COCONUT Allergy Mild Hives / Uncoded 10/20/24 09:37 Red Face Delodium AdvReac Mild Vomiting Uncoded 10/20/24 09:37 Review of Systems Review of Systems: All systems reviewed & are unremarkable except as noted in HPI and below [facility] Past Medical History Medical History (Updated 10/20/24 @ 15:46 by Vera Perez PA-C) Vitamin D deficiency Depression Kidney stones Crohn's disease C. difficile colitis (11/2023) Osteopenia Cellulitis Yeast infection Allergies Obstructive sleep apnea not on CPAP Hypertension not currently on medication Inflammatory arthritis Hyperlipidemia Obesity Postmenopausal Arthritis Tobacco abuse Incisional hernia without obstruction or gangrene Umbilical hernia Degenerative joint disease Surgical History Surgical History (Updated 10/20/24 @ 15:46 by Vera Perez PA-C) History of ankle surgery ORIF right ankle fracture History of fusion of cervical spine History of hernia repair History of tubal ligation History of right hemicolectomy (2019) History of colonoscopy Family History Family History Father Diabetes mellitus Malignant neoplasm of prostate Hypertension Family history of diabetes mellitus in first degree relative Family history of malignant neoplasm of urinary bladder Family history of heart disease in male family member before age 55 Mother Diabetes mellitus Family history of kidney disease Patient's mother is Other Family history of cardiovascular disease Social History Social History (Updated 10/20/24 @ 15:46 by Vera Perez PA-C) Social History: Surrogate medical decision maker: Reynold Colbert, spouse. Code status: Full code. Smoking packs per day: 0.5 Smoking cigarettes per day: 10.0 Years smoked: 50 Smoking pack-years: 25.00 Smoking status: Former smoker Second hand tobacco smoke exposure: No Alcohol intake: current Drinks per week: 1 Substance use: never Substance use type: does not use Do You Feel Safe in your Home?: Yes Lack of Transportation: No Lack of Food: Never True Current Housing: I Have Housing Concerned About Future Housing: No Difficulty Paying Gas/Electric Bills: No Difficulty Paying for Meds: No Currently Unemployed: No Education: Decline to Answer Difficulty w/ Childcare or Family Care: No Living arrangements: with family Occupation/Education: retired Spiritual care concerns: No Agree to blood products: Yes Exam Narrative: GENERAL: Well-developed, well-nourished, and in no acute distress. HEAD: Normocephalic, atraumatic. EYES: PERRLA and EOMI. CHEST: Clear to auscultation. No respiratory distress. No wheezes rales or rhonchi HEART: Regular rate and rhythm. No murmur heard. Normal peripheral pulses. ABDOMEN: Soft, tender palpation in the epigastrium, with rebound and guarding, nondistended, normal active bowel sounds. EXTREMITIES: Normal range of motion. No edema. SKIN: Warm, dry, no rash. NEURO: Alert and oriented x3. No focal deficit. Moving all 4 limbs spontaneously PSYCH: Normal mood and affect. Course Course Emergency Course: 13:42 - CBC demonstrates elevated white blood cell count of 12.2 with hemoglobin of 15.9 and platelets of 279. Chemistries demonstrate mildly decreased potassium of 3.3 as well as mild elevations of AST/ALT of 47/66 respectively. Bilirubin within normal limits. Labs otherwise unremarkable. CT abdomen pelvis demonstrates chronic large and small bowel inflammatory changes consistent with Crohn's. There is also noted gallbladder distention without obvious stone. The patient's exam is concerning with right upper quadrant tenderness. Ultrasound demonstrates gallbladder distention without other changes concerning for cholecystitis. I suspect intractable vomiting associated with mild rice tear. I discussed the patient with hospitalist, BETH Perez who accepts admission for observation. Will consult GI. Vital Signs Vital signs: Vital Signs Temperature 97.2 F L 10/20/24 09:27 Pulse Rate 99 10/20/24 09:27 Respiratory Rate 96 H 10/20/24 09:27 Blood Pressure 153/74 H 10/20/24 09:27 Pulse Oximetry 97 10/20/24 09:27 Temperature 98.6 F 10/20/24 21:29 Pulse Rate 99 10/20/24 21:29 Respiratory Rate 18 10/20/24 21:29 Blood Pressure 158/76 H 10/20/24 16:25 Pulse Oximetry 99 10/20/24 21:29 Oxygen Delivery Room Air 10/20/24 17:00 MDM - Nausea/Vomiting/Diarrhea MDM Narrative Medical decision making narrative: Plan: Labs, pain control, antiemetics, imaging, reassess Differential Diagnosis Differential diagnosis: Likely gastroenteritis, dehydration and other (Crohn's flare, bowel perforation, Nhung-Lindo tear, peptic ulcers disease, gastritis, metabolic abnormality, other) Lab Data 10/20/24 10:52 10/20/24 10:30 Labs: Lab Results 10/20/24 10/20/24 10/20/24 Range/Units 10:30 10:52 11:18 WBC 12.2 H (4.5-10.0) K/mm3 RBC 5.42 H (4.2-5.4) M/mm3 Hgb 15.9 H (12.0-15.0) g/dL Hct 48.9 H (37.0-47.0) % MCV 90.2 (80-100) fl MCH 29.3 (26-34) pg MCHC 32.5 (32-36) g/dl RDW 13.5 (11.5-14.5) % Plt Count 279 (150-375) k/mm3 MPV 8.7 (7.4-10.4) fl Immature Gran % (Auto) 0.4 (0-0.5) % Neut % (Auto) 70.1 (45.5-73.1) % Lymph % (Auto) 19.1 (18.3-44.2) % [place] % (Auto) 9.4 H (2.6-8.5) % Eos % (Auto) 0.7 (0-4.4) % Baso % (Auto) 0.3 (0.2-1.2) % Lymph # (Auto) 2.33 (0.9-3.2) K/mm3 [place] # (Auto) 1.1 H (0.1-0.6) K/mm3 Eos # (Auto) 0.1 (0-0.3) K/mm3 Baso # (Auto) 0.0 (0.0-0.1) K/mm3 Abs Immat Gran (auto) 0.05 H (0.00-0.031) K/mm3 Absolute Neuts (auto) 8.5 H (1.3-6.7) K/mm3 Absolute Nucleated RBC 0.000 (0.0-0.012) K/mm3 Nucleated RBC % 0.0 (0.0-0.2) % PT 13.6 (11.1-14.7) Seconds INR 1.0 APTT 22.8 (22.3-36.8) Seconds Sodium 135 L (137-145) mmol/L Potassium 3.3 L (3.4-5.0) mmol/L Chloride 102 (98-107) mmol/L Carbon Dioxide 25 (22-30) mmol/L Anion Gap 8 (4-12) mmol/L BUN 12 (7-17) mg/dL Creatinine 0.62 L (0.7-1.0) mg/dL Estim Creat Clear Calc 83 ml/min Estimated GFR > 60 (59 - ) Glucose 147 H (65-110) mg/dL Calcium 9.4 (8.4-10.2) mg/dL Magnesium 2.0 (1.6-2.3) mg/dL Total Bilirubin 0.9 (0.2-1.3) mg/dL AST 47 H (14-36) U/L ALT 66 H (6-35) U/L Alkaline Phosphatase 170 H (38-126) U/L Total Protein 7.0 (6.3-8.2) g/dL Albumin 3.8 (3.5-5.1) g/dL Lipase 120 (23-300) U/L Discharge Plan Discharge Clinical Impression: Epigastric abdominal pain, Nhung-Lindo tear Nausea & vomiting Qualifiers: Vomiting type: hematemesis Qualified Code(s): K92.0 - Hematemesis Patient Disposition: Still a Patient Condition: Stable Time of Disposition: 13:42
[2024-10-20 10:57] LABS: Basophils Percent Auto 0.3 % (0.2-1.2); Eosinophils Absolute Auto 0.1 K/mm3 (0-0.3); Eosinophils Percent Auto 0.7 % (0-4.4); Hematocrit 48.9 % (37.0-47.0); Hemoglobin 15.9 g/dL (12.0-15.0); Immature Granulocyte Absolute 0.05 K/mm3 (0.00-0.031); Immature Granulocyte Percent A 0.4 % (0-0.5); Lymphocytes Absolute Auto 2.33 K/mm3 (0.9-3.2); Lymphocytes Percent Auto 19.1 % (18.3-44.2); Mean Corpuscular HGB Conc 32.5 g/dl (32-36); Mean Corpuscular Hemoglobin 29.3 pg (26-34); Mean Corpuscular Volume 90.2 fl (80-100); Mean Platelet Volume 8.7 fl (7.4-10.4); Monocytes Absolute Auto 1.1 K/mm3 (0.1-0.6); Monocytes Percent Auto 9.4 % (2.6-8.5); Neutrophils Absolute Auto 8.5 K/mm3 (1.3-6.7); Neutrophils Percent Auto 70.1 % (45.5-73.1); Platelet Count Result 279 k/mm3 (150-375); Red Blood Count 5.42 M/mm3 (4.2-5.4); Red Cell Distribution Width 13.5 % (11.5-14.5); White Blood Count 12.2 K/mm3 (4.5-10.0)
[2024-10-20 12:05] LABS: Prothrombin Time 13.6 Seconds (11.1-14.7)
[2024-10-20 12:06] LABS: Partial Thromboplastin Time 22.8 Seconds (22.3-36.8)
[2024-10-20 13:11] LABS: Lipase 120 U/L (23-300)
--- NOTE | 2024-10-20 13:45 | PM.IMHP ---
H&P: HPI History of Present Illness Date/Time: 10/20/24 13:45 Chief Complaint: Nausea, vomiting, and abdominal pain. Narrative: This is a 64-year-old female with Crohn's disease who presented to the emergency department for evaluation of nausea, vomiting, and abdominal pain. The patient provides the following history. She has not been feeling well for over a month with abdominal pain, nausea, and diarrhea. She was recently hospitalized with a Crohn's flare and was discharged home a little over week ago. Colonoscopy done at that time showed severe, benign-appearing stenosis in the transverse colon and several biopsies showed acute chronic enteritis with acute ulcerations. She was discharged home on prednisone and unfortunately she really is not feeling much better aside from the fact that her diarrhea has improved significantly with the addition of cholestyramine and she is now only having 4 or so soft stools a day. Unfortunately she continues to have nausea and vomiting and is only able to tolerate small amounts of food at a time. At times she notices small flecks of bright red blood in her emesis after retching but not in significant quantities. She continues to have abdominal pain however it seems to be situated more so in the periumbilical region and the upper abdomen which is a bit different than her typical Crohn's related pain. She also complains of perirectal pain at this site of a reported fistula; she has not noticed any discharge from the area. She denies fever, chills, sweats, bloating, belching, GERD symptoms, chest pain, shortness of breath, cough, melena, and hematochezia. In the ED: She was afebrile on arrival with stable vital signs. Labs are significant for WBC count 12.2, hemoglobin 15.9, sodium 135, potassium 3.3, BUN 12, creatinine 0.62, glucose 147, AST 47, ALT 66, alkaline phosphatase 170, lipase 120. CT of the abdomen and pelvis showed chronic in a rectal inflammation with chronic small perirectal and presacral abscesses and gallbladder distension. An abdominal ultrasound showed gallbladder distension with sludge which may be secondary due to fasting, normal size common bile duct, and diffuse hepatic steatosis. She received metoclopramide 10 mg and morphine 4 mg and she is being admitted in this setting for further treatment Review of Systems Review of Systems: 12 systems were reviewed and are negative except for as per HPI. [facility] Past Medical History Medical History (Updated 10/20/24 @ 15:46 by Vera Perez PA-C) Vitamin D deficiency Depression Kidney stones Crohn's disease C. difficile colitis (11/2023) Osteopenia Cellulitis Yeast infection Allergies Obstructive sleep apnea not on CPAP Hypertension not currently on medication Inflammatory arthritis Hyperlipidemia Obesity Postmenopausal Arthritis Tobacco abuse Incisional hernia without obstruction or gangrene Umbilical hernia Degenerative joint disease Surgical History Surgical History (Updated 10/20/24 @ 15:46 by Vera Perez PA-C) History of ankle surgery ORIF right ankle fracture History of fusion of cervical spine History of hernia repair History of tubal ligation History of right hemicolectomy (2019) History of colonoscopy Family History Family History Father Diabetes mellitus Malignant neoplasm of prostate Hypertension Family history of diabetes mellitus in first degree relative Family history of malignant neoplasm of urinary bladder Family history of heart disease in male family member before age 55 Mother Diabetes mellitus Family history of kidney disease Patient's mother is Other Family history of cardiovascular disease Social History Social History (Updated 10/20/24 @ 15:46 by Vera Perez PA-C) Social History: Surrogate medical decision maker: Reynold Colbert, spouse. Code status: Full code. Smoking packs per day: 0.5 Smoking cigarettes per day: 10.0 Years smoked: 50 Smoking pack-years: 25.00 Smoking status: Former smoker Second hand tobacco smoke exposure: No Alcohol intake: current Drinks per week: 1 Substance use: never Substance use type: does not use Do You Feel Safe in your Home?: Yes Lack of Transportation: No Lack of Food: Never True Current Housing: I Have Housing Concerned About Future Housing: No Difficulty Paying Gas/Electric Bills: No Difficulty Paying for Meds: No Currently Unemployed: No Education: Decline to Answer Difficulty w/ Childcare or Family Care: No Living arrangements: with family Occupation/Education: retired Spiritual care concerns: No Agree to blood products: Yes Meds Home Medications and Allergies Home Medications ?Medication ?Instructions ?Recorded ?Confirmed ?Type albuterol sulfate 90 mcg/actuation 1 inh inhalation Q4-6H PRN 03/07/24 10/20/24 Rx aerosol inhaler shortness of breath or wheezing #8.5 grams duloxetine 60 mg capsule,delayed 60 mg PO BID #60 caps 03/07/24 10/20/24 Rx release simethicone 80 mg chewable tablet 80 mg PO QID PRN Gastric Reflux 05/10/24 10/20/24 History lidocaine HCl 4 % topical liquid 1 ea topical PRN PRN Pain 06/23/24 10/20/24 History roll-on (Aspercreme (lidocaine HCl)) prochlorperazine maleate 10 mg 10 mg PO Q8H PRN Nausea And 08/03/24 10/20/24 Rx tablet (Compazine) Vomiting #30 tabs cholestyramine (with sugar) 4 gram 1 ea PO BID@1000,1800 #30 ea 10/12/24 10/20/24 Rx powder for susp in a packet prednisone 20 mg tablet 40 mg (2 x 20 mg) PO DAILY #30 tabs 10/12/24 10/20/24 Rx Allergies Allergy/AdvReac Type Severity Reaction Status Date / Time cyclobenzaprine Allergy Mild HYPERACTIVI Verified 10/20/24 09:37 TY infliximab (From Remicade) Allergy Mild Hives Verified 10/20/24 09:37 latex Allergy Mild Rash Verified 10/20/24 09:37 lisinopril Allergy Mild cough Verified 10/20/24 09:37 contact metal agent Allergy Hives Verified 10/20/24 09:37 hydrocodone AdvReac Mild N/V Verified 10/20/24 09:37 clindamycin AdvReac Unknown other Verified 10/20/24 09:37 hydromorphone (From Dilaudid) AdvReac Vomiting Verified 10/20/24 09:37 oxycodone AdvReac Nausea and Verified 10/20/24 09:37 Vomiting palm oil Allergy Intermediate Hives Uncoded 10/20/24 09:37 COCONUT Allergy Mild Hives / Uncoded 10/20/24 09:37 Red Face Delodium AdvReac Mild Vomiting Uncoded 10/20/24 09:37 Vital Signs Vital Signs - 24 hr 10/20/24 09:27 10/20/24 09:39 Temperature 97.2 F L 97.8 F Pulse Rate 99 94 Respiratory Rate 96 H 20 Blood Pressure 153/74 H 154/88 H Pulse Oximetry 97 100 Exam Narrative: General: Mildly ill but nontoxic appearing female in the semi-Gifford position in bed. Weight: 91.3 kg. BMI: 36.8. HEENT: Normocephalic, atraumatic. PERRL, EOMI. Sclera anicteric. Tacky mucous membranes. Neck: Supple. Respiratory: Lungs are clear to auscultation bilaterally. Cardiovascular: Regular rate and rhythm with S1-S2. Gastrointestinal: Abdomen is soft and slightly distended with hypoactive bowel sounds. She is tender to palpation throughout the abdomen but more so in the periumbilical region and diffusely throughout the upper abdomen. Negative Barakat sign. No guarding or rebound tenderness. Genitourinary: Exam deferred. Skin: Warm and dry. Extremities: No cyanosis, clubbing, or significant edema. Radial and pedal pulses intact. Neurological: Alert. Cranial nerves 2-12 are grossly intact. No gross focal deficits to casual conversation. Psychiatric: Pleasant and cooperative with normal mood and affect. Judgment and insight intact. H&P: Results Labs Labs: Short CBC 10/20/24 Range/Units 10:52 WBC 12.2 H (4.5-10.0) K/mm3 Hgb 15.9 H (12.0-15.0) g/dL Hct 48.9 H (37.0-47.0) % Plt Count 279 (150-375) k/mm3 BMP 10/20/24 10:30 Sodium 135 L Potassium 3.3 L Chloride 102 Carbon Dioxide 25 BUN 12 Creatinine 0.62 L Glucose 147 H Calcium 9.4 Liver Function 10/20/24 Range/Units 10:30 Total Bilirubin 0.9 (0.2-1.3) mg/dL AST 47 H (14-36) U/L ALT 66 H (6-35) U/L Alkaline Phosphatase 170 H (38-126) U/L Albumin 3.8 (3.5-5.1) g/dL Assessment and Plan Assessment and plan (1) Abdominal pain: Code(s): R10.9 - Unspecified abdominal pain Status: Acute (2) Perirectal abscess: Code(s): K61.1 - Rectal abscess Status: Acute (3) Hypokalemia: Code(s): E87.6 - Hypokalemia Status: Acute (4) Crohn's disease: Qualifiers: Digestive disease complication type: with abscess Gastrointestinal tract location: unspecified location Qualified Code(s): K50.914 - Crohn's disease, unspecified, with abscess Code(s): K50.90 - Crohn's disease, unspecified, without complications Status: Chronic (5) Elevated LFTs: Code(s): R79.89 - Other specified abnormal findings of blood chemistry Status: Acute Plan The patient presented to the emergency department for evaluation of ongoing nausea, vomiting, and abdominal pain as detailed in HPI. Labs, imaging, EKG, and all reports were personally reviewed. Her abdominal pain is a bit different than what she typically face appearance is with her Crohn's disease. Gallbladder was distended on CT scan though there was no evidence of cholecystitis on ultrasound. She has been retching and dry heaving which may very well be the cause of her pain. Continue supportive care with IV fluid rehydration and analgesics and antiemetics as needed. Continue steroids prescribed recently for Crohn's flare. She has been started on Zosyn for finding of perirectal abscess on CT. LFTs are mildly elevated and are stable compared to previous labs. Potassium will be replaced and monitored. Vital signs were reviewed and they are stable. GI and surgery have been consulted. Her home medications will be reviewed and resumed as appropriate. Findings and treatment plan were discussed with the patient. Questions were solicited and answered to satisfaction. The patient's medical management will be taken over by the hospitalist team in a.m. Quality VTE Prophylaxis VTE prophylaxis: mechanical ordered If No VTE Prophylaxis Answer both mechanical and pharmacologic: Reason no pharmacologic proph: medical contraindication (may need procedure) The patient has been admitted under observation status. Hospitalist [facility] Advance Care Plan I have confirmed that the patient's Advanced Care Plan is present, code status is documented, or surrogate decision maker is listed in patient medical record.: Yes Medication Reconciliation I have utilized all available resources to obtain, update and review the patients current medications (includes all prescriptions, OTC, herbals, cannabis, and nutritional supplements).: Yes
[2024-10-20] MEDS: PIPERACILLN/TAZ 3.375GM/NS50ML 3.375 GM/50 ML BAG IVPB (21:34)
[2024-10-20] MEDS: METOCLOPRAMIDE HCL INJ 10 MG/2 ML VIAL 5 MG IV PUSH (23:52)
[2024-10-20] MEDS: SODIUM CHLORIDE 0.9% IV 1,000 ML 100 ML IV CONT (23:57)
[2024-10-20] MEDS: POTASSIUM CHLORIDE 20 MEQ ER TABLET PO (23:58)
[2024-10-21] MEDS: MORPHINE SULFATE (*CRX) 4 MG/ML INJ IV PUSH (00:04)
[2024-10-21] MEDS: PIPERACILLN/TAZ 3.375GM/NS50ML 3.375 GM/50 ML BAG IVPB ×4 (02:17→20:41)
[2024-10-21 04:14] VITALS: BP 115/59; PULSE 90; RESP 16; TEMP 36.9; O2SAT 95
[2024-10-21 05:58] LABS: Basophils Absolute Auto 0.1 K/mm3 (0.0-0.1); Basophils Percent Auto 0.8 % (0.2-1.2); Eosinophils Absolute Auto 0.2 K/mm3 (0-0.3); Eosinophils Percent Auto 1.7 % (0-4.4); Hemoglobin 13.8 g/dL (12.0-15.0); Immature Granulocyte Absolute 0.04 K/mm3 (0.00-0.031); Immature Granulocyte Percent A 0.4 % (0-0.5); Lymphocytes Absolute Auto 2.02 K/mm3 (0.9-3.2); Lymphocytes Percent Auto 20.1 % (18.3-44.2); Mean Corpuscular HGB Conc 30.7 g/dl (32-36); Mean Corpuscular Hemoglobin 28.9 pg (26-34); Mean Corpuscular Volume 94.1 fl (80-100); Mean Platelet Volume 8.9 fl (7.4-10.4); Monocytes Absolute Auto 0.6 K/mm3 (0.1-0.6); Monocytes Percent Auto 6.4 % (2.6-8.5); Neutrophils Absolute Auto 7.1 K/mm3 (1.3-6.7); Neutrophils Percent Auto 70.6 % (45.5-73.1); Platelet Count Result 256 k/mm3 (150-375); Red Blood Count 4.78 M/mm3 (4.2-5.4); Red Cell Distribution Width 13.6 % (11.5-14.5); White Blood Count 10.1 K/mm3 (4.5-10.0)
[2024-10-21 06:38] LABS: Alanine Aminotransferase 84 U/L (6-35); Alkaline Phosphatase 155 U/L (38-126); Anion Gap 3 mmol/L (4-12); Aspartate Amino Transferase 82 U/L (14-36); Bilirubin,Total 1.2 mg/dL (0.2-1.3); Blood Urea Nitrogen 9 mg/dL (7-17); Calcium 8.3 mg/dL (8.4-10.2); Carbon Dioxide 23 mmol/L (22-30); Chloride 105 mmol/L (98-107); Estimated CRCL calculation 73 ml/min; Estimated Glomerular Filt Rate > 60; Glucose 98 mg/dL (65-110); Magnesium 2.1 mg/dL (1.6-2.3); Potassium 4.4 mmol/L (3.4-5.0); Sodium 131 mmol/L (137-145)
[2024-10-21 09:30] VITALS: O2SAT 100
[2024-10-21] MEDS: PANTOPRAZOLE SODIUM IV 40 MG VIAL IV PUSH (09:32)
[2024-10-21] MEDS: DULoxetine HCL 60 MG CAPSULE.DR PO ×2 (09:32→17:49)
[2024-10-21] MEDS: CHOLESTYRAMINE (W/ SUGAR) 4 GM POWD.PACK PO (13:06)
[2024-10-21] MEDS: predniSONE 20 MG TABLET 40 MG PO (13:06)
--- NOTE | 2024-10-21 13:09 | WPDCN ---
Assessment and Plan Assessment and plan (1) Crohn's disease: Qualifiers: Digestive disease complication type: with abscess Gastrointestinal tract location: unspecified location Qualified Code(s): K50.914 - Crohn's disease, unspecified, with abscess Code(s): K50.90 - Crohn's disease, unspecified, without complications Status: Chronic Assessment and Plan: Patient has had a an ongoing exacerbation of her Crohn's disease for which she was recently admitted to the hospital and discharged on steroids. She has continued to have issues with nausea vomiting and weight loss. She is hoping to transition to a another biologic medication if it is approved. She is currently being followed by Gastroenterology here at [facility] for her Crohn's disease. She does not seem to have a high-grade small-bowel obstruction. She tolerated clear liquids I think she can go ahead and advanced to full liquids and then hopefully a low residual diet. She has no obvious evidence of an acute surgical abdomen. Abdominal ultrasound was performed showing a dilated gallbladder with some sludge but no acute inflammation or gallbladder wall thickening. She has no symptoms to suggest that she has acute cholecystitis or for issues with chronic cholecystitis. I do not recommend any surgical management of her gallbladder further workup of the gallbladder at this time. Management of her Crohn's disease as per GI. (2) Perirectal abscess: Code(s): K61.1 - Rectal abscess Status: Acute Assessment and Plan: Patient has a james rectal fluid collection deep in the presacral region. Clinically she does not appear to have a drainable abscess at this time. I would just continue to observe this area and treat with antibiotics. She has no palpable fluctuance to drain at this time. Clinically she is not complaining any worsening symptoms of pain in this area. [facility] Data of Consult Date/Time: 10/21/24 13:09 Requesting Physician: Brant Stockton MD Primary Care Provider: Brooklynn Pennington NP Consult Narrative Reason for consult: Perirectal fluid collection, Crohn's disease. Narrative: Saira Colbert is a 64 year old female who was admitted to the hospital complaining of weight loss, poor p.o. intake, nausea and diarrhea. She has Crohn's disease and has been maintained with steroids for the time being as she is trying to get approved for a new biologic agent as previous treatments with Humira were not successful in treating her Crohn's disease. She had MRI performed a couple of weeks ago at which time was inflammation in the perirectal and perianal region consistent with Crohn's involvement but there is no abscess or fluid collection at that time. She states that she has some minor soreness in the perirectal and perianal region there has been no increased pain in that area over the past 2 weeks. There has been no drainage. She continues to have loose bowel movements without difficulty of which are nonbloody. On admission her white blood cell count was 12,000. This morning it is down to 10,000. She is on IV antibiotics and IV steroids again. She was given a clear liquid diet which he tolerated well without any nausea this morning. CT scan abdomen pelvis showed thickening of the terminal ileum as well as portion of her transverse colon. Inflammation of the rectum and james anal region was also noted with a fluid collection in the perirectal and presacral region without air-fluid level. The fluid collection measured 4.0 x 0.6x0.7cm. Patient has been afebrile and does not appear to be toxic. Review of Systems Review of Systems: The remainder of the review of systems to include constitutional, HEENT, cardiovascular, respiratory, GI, , integumentary, musculoskeletal, endocrine, immunologic, hematologic, psychiatric, and neurologic are all negative except for which is mentioned above in the HPI. [facility] Past Medical History Medical History Vitamin D deficiency Depression Kidney stones Crohn's disease C. difficile colitis (11/2023) Osteopenia Cellulitis Yeast infection Allergies Obstructive sleep apnea not on CPAP Hypertension not currently on medication Inflammatory arthritis Hyperlipidemia Obesity Postmenopausal Arthritis Tobacco abuse Incisional hernia without obstruction or gangrene Umbilical hernia Degenerative joint disease Surgical History Surgical History History of ankle surgery ORIF right ankle fracture History of fusion of cervical spine History of hernia repair History of tubal ligation History of right hemicolectomy (2019) History of colonoscopy Family History Family History Father Diabetes mellitus Malignant neoplasm of prostate Hypertension Family history of diabetes mellitus in first degree relative Family history of malignant neoplasm of urinary bladder Family history of heart disease in male family member before age 55 Mother Diabetes mellitus Family history of kidney disease Patient's mother is Other Family history of cardiovascular disease Social History Social History Social History: Surrogate medical decision maker: Reynold Colbert, spouse. Code status: Full code. Smoking packs per day: 0.5 Smoking cigarettes per day: 10.0 Years smoked: 50 Smoking pack-years: 25.00 Smoking status: Former smoker Second hand tobacco smoke exposure: No Alcohol intake: current Drinks per week: 1 Substance use: never Substance use type: does not use Do You Feel Safe in your Home?: Yes Lack of Transportation: No Lack of Food: Never True Current Housing: I Have Housing Concerned About Future Housing: No Difficulty Paying Gas/Electric Bills: No Difficulty Paying for Meds: No Currently Unemployed: No Education: Decline to Answer Difficulty w/ Childcare or Family Care: No Living arrangements: with family Occupation/Education: retired Spiritual care concerns: No Agree to blood products: Yes Meds Home Medications and Allergies Home Medications ?Medication ?Instructions ?Recorded ?Confirmed ?Type albuterol sulfate 90 mcg/actuation 1 inh inhalation Q4-6H PRN 03/07/24 10/20/24 Rx aerosol inhaler shortness of breath or wheezing #8.5 grams duloxetine 60 mg capsule,delayed 60 mg PO BID #60 caps 03/07/24 10/20/24 Rx release simethicone 80 mg chewable tablet 80 mg PO QID PRN Gastric Reflux 05/10/24 10/20/24 History lidocaine HCl 4 % topical liquid 1 ea topical PRN PRN Pain 06/23/24 10/20/24 History roll-on (Aspercreme (lidocaine HCl)) prochlorperazine maleate 10 mg 10 mg PO Q8H PRN Nausea And 08/03/24 10/20/24 Rx tablet (Compazine) Vomiting #30 tabs cholestyramine (with sugar) 4 gram 1 ea PO BID@1000,1800 #30 ea 10/12/24 10/20/24 Rx powder for susp in a packet prednisone 20 mg tablet 40 mg (2 x 20 mg) PO DAILY #30 tabs 10/12/24 10/20/24 Rx Allergies Allergy/AdvReac Type Severity Reaction Status Date / Time cyclobenzaprine Allergy Mild HYPERACTIVI Verified 10/20/24 09:37 TY infliximab (From Remicade) Allergy Mild Hives Verified 10/20/24 09:37 latex Allergy Mild Rash Verified 10/20/24 09:37 lisinopril Allergy Mild cough Verified 10/20/24 09:37 contact metal agent Allergy Hives Verified 10/20/24 09:37 hydrocodone AdvReac Mild N/V Verified 10/20/24 09:37 clindamycin AdvReac Unknown other Verified 10/20/24 09:37 hydromorphone (From Dilaudid) AdvReac Vomiting Verified 10/20/24 09:37 oxycodone AdvReac Nausea and Verified 10/20/24 09:37 Vomiting palm oil Allergy Intermediate Hives Uncoded 10/20/24 09:37 COCONUT Allergy Mild Hives / Uncoded 10/20/24 09:37 Red Face Delodium AdvReac Mild Vomiting Uncoded 10/20/24 09:37 Vital Signs Vital Signs - 24 hr 10/20/24 13:17 10/20/24 13:30 10/20/24 13:45 Temperature Pulse Rate 83 87 87 Respiratory Rate 16 15 14 Blood Pressure Pulse Oximetry 99 97 96 Oxygen Delivery 10/20/24 16:25 10/20/24 17:00 10/20/24 20:00 Temperature Pulse Rate 94 Respiratory Rate 18 Blood Pressure 158/76 H Pulse Oximetry 97 97 Oxygen Delivery Room Air Room Air 10/20/24 21:29 10/20/24 21:33 10/21/24 04:14 Temperature 37.0 C 36.9 C Pulse Rate 99 90 Respiratory Rate 18 16 Blood Pressure 126/62 115/59 L Pulse Oximetry 99 95 Oxygen Delivery Exam Const: General: comfortable and no acute distress HENMT: Ears: TM's normal bilaterally Face/Nose/Sinus: Normal nares present Mouth: Yes moist mucous membranes Eyes: General: appearance normal, both eyes and all related structures Sclera: sclerae normal Pupils: Equal, round and reactive pupils present EOM: EOMs intact bilaterally Neck: Neck: supple and no JVD Resp: Effort & Inspection: normal respiratory effort Auscultation: clear to auscultation bilaterally Cardio: Rate: regular rate Rhythm: regular rhythm GI: Other: Abdomen is soft and obese minimal right lower quadrant tenderness. No diffuse tenderness or guarding. Well-healed periumbilical midline scar without evidence of incisional hernia. Examination of the perianal region shows some minor non irritated nonthrombosed hemorrhoids. Patient appears to have good sphincter tone. There is no skin opening or evidence of a draining perirectal or perianal fistula or abscess. There is no induration to the tissues around the perianal region or the sacral region to palpation. She denies any significant tenderness to palpation of these areas. Skin: General skin exam: normal color and no rashes or lesions noted Neuro: General: gait normal Speech: normal speech Motor exam (neuro): 5/5 motor strength present throughout Sensory Exam: normal sensation Extrem: General: normal to inspection Psych: Mental Status: mental status grossly normal Affect: normal affect Results Labs 10/21/24 05:19 10/21/24 05:19 Labs: Short CBC 10/21/24 Range/Units 05:19 WBC 10.1 H (4.5-10.0) K/mm3 Hgb 13.8 (12.0-15.0) g/dL Hct 45.0 (37.0-47.0) % Plt Count 256 (150-375) k/mm3 BMP 10/21/24 05:19 Sodium 131 L Potassium 4.4 Chloride 105 Carbon Dioxide 23 BUN 9 Creatinine 0.72 Glucose 98 Calcium 8.3 L Liver Function 10/21/24 Range/Units 05:19 Total Bilirubin 1.2 (0.2-1.3) mg/dL Direct Bilirubin 0.0 (0-0.3) mg/dL AST 82 H (14-36) U/L ALT 84 H (6-35) U/L Alkaline Phosphatase 155 H (38-126) U/L Albumin 3.0 L (3.5-5.1) g/dL
[2024-10-21 14:20] VITALS: BP 136/58; PULSE 100; RESP 16; TEMP 36.1; O2SAT 100
--- NOTE | 2024-10-21 14:34 | WPDGIPROGNO ---
Progress Note: A&P Assessment and Plan (1) Crohn's disease: Qualifiers: Digestive disease complication type: with abscess Gastrointestinal tract location: unspecified location Qualified Code(s): K50.914 - Crohn's disease, unspecified, with abscess Code(s): K50.90 - Crohn's disease, unspecified, without complications Status: Chronic Assessment and Plan: The patient has severe Crohn's disease ileitis and a suspected presacral abscess based on CT scan findings. Broad-spectrum antibiotic coverage has been started. The final reading of the pelvic MRI obtained this morning is still pending. The optimal drainage strategy for the abscess will be determined in conjunction with surgery once the MRI results are available. In the interim, the patient will continue her current dose of prednisone (40 mg PO daily). Ondansetron will be prescribed for nausea management in stead of metoclopramide, which can worsen diarrhea. The dose of cholestyramine will be maintained at 4 grams once daily. With this and Ondansetron diarrhea may ameliorate significantly. Will continue to work on approval of Reshma in coordination with our office. Subjective Date/time seen: 10/21/24 14:34 Interval history: The patient feels better, no further abdominal pain or vomiting episodes. She is still having some loose bowel movements. She tolerated a full liquid diet and is hungry, willing to advanced to a low residue diet. Objective Data Vital Signs Vital Signs: Vital Signs - 24 hr 10/20/24 16:25 10/20/24 17:00 10/20/24 20:00 Temperature Pulse Rate 94 Respiratory Rate 18 Blood Pressure 158/76 H Pulse Oximetry 97 97 Oxygen Delivery Room Air Room Air 10/20/24 21:29 10/20/24 21:33 10/21/24 04:14 Temperature 98.6 F 98.4 F Pulse Rate 99 90 Respiratory Rate 18 16 Blood Pressure 126/62 115/59 L Pulse Oximetry 99 95 Oxygen Delivery 10/21/24 14:20 Temperature 97.0 F L Pulse Rate 100 Respiratory Rate 16 Blood Pressure 136/58 L Pulse Oximetry 100 Oxygen Delivery Intake/Output Intake/Output: Intake & Output 10/18/24 10/19/24 10/20/24 10/21/24 23:59 23:59 23:59 23:59 Intake Total 550 920 Balance 550 920 Meds/Results Medications: Active Medications Generic Name Dose Route Start Last Admin Trade Name Freq PRN Reason Stop Dose Admin Albuterol 1 puff 10/20/24 22:42 Albuterol Sulfate (*Sp) Aerosol 1 Puff INHALATION Q4HRT PRN shortness of breath or wheezing Cholestyramine Resin 4 gm 10/21/24 12:15 10/21/24 13:06 Cholestyramine (W/ Sugar) 4 Gm Powd.Pack PO 4 gm DAILY KARAN Administration Duloxetine HCl 60 mg 10/21/24 09:00 10/21/24 09:32 Duloxetine Hcl 60 Mg Capsule.Dr PO 60 mg BID KARAN Administration Piperacillin/Tazobactam/Dextrose 3.375 gm in 50 mls @ 100 mls/hr 10/20/24 21:00 10/21/24 09:29 Zosyn 3.375 Gm/Ns 50 Ml IVPB 100 mls/hr Q6H KARAN Administration Morphine Sulfate 2 mg 10/20/24 22:41 Morphine Sulfate (*Crx) 2 Mg/Ml Inj IV PUSH Q4H PRN Pain Rated 4-6 Morphine Sulfate 4 mg 10/20/24 22:41 10/21/24 00:04 Morphine Sulfate (*Crx) 4 Mg/Ml Inj IV PUSH 4 mg Q4H PRN Administration Pain Rated 7-10 Ondansetron HCl 4 mg 10/21/24 12:12 Ondansetron Inj 4 Mg/2 Ml Vial IV PUSH Q6H PRN Nausea And Vomiting Prednisone 40 mg 10/21/24 09:00 10/21/24 13:06 Prednisone 20 Mg Tablet PO 40 mg DAILY KARAN Administration Radiology Results: ITS Impressions Abdomen/Pelvis CT 10/20/24 12:05 IMPRESSION: 1. Chronic anorectal inflammation with chronic small perirectal and presacral abscess. 2. Gallbladder distention, which may be secondary to fasting. Gallbladder with physical exam to exclude acute cholecystitis. Abdomen Ultrasound 10/20/24 13:34 IMPRESSION: 1. Gallbladder distention, which may be secondary to fasting. 2. Diffuse hepatic steatosis. Labs Labs: Laboratory Results - last 24 hr 10/21/24 05:19 WBC 10.1 H RBC 4.78 Hgb 13.8 Hct 45.0 MCV 94.1 MCH 28.9 MCHC 30.7 L RDW 13.6 Plt Count 256 MPV 8.9 Immature Gran % (Auto) 0.4 Neut % (Auto) 70.6 Lymph % (Auto) 20.1 [place] % (Auto) 6.4 Eos % (Auto) 1.7 Baso % (Auto) 0.8 Lymph # (Auto) 2.02 [place] # (Auto) 0.6 Eos # (Auto) 0.2 Baso # (Auto) 0.1 Abs Immat Gran (auto) 0.04 H Absolute Neuts (auto) 7.1 H Absolute Nucleated RBC 0.000 Nucleated RBC % 0.0 Sodium 131 L Potassium 4.4 Chloride 105 Carbon Dioxide 23 Anion Gap 3 L BUN 9 Creatinine 0.72 Estim Creat Clear Calc 73 Estimated GFR > 60 Glucose 98 Calcium 8.3 L Magnesium 2.1 Total Bilirubin 1.2 Direct Bilirubin 0.0 AST 82 H ALT 84 H Alkaline Phosphatase 155 H Total Protein 6.0 L Albumin 3.0 L
--- NOTE | 2024-10-21 16:00 | P.PNIM_ITS ---
Progress Note: A&P Assessment and Plan (1) Abdominal pain: Code(s): R10.9 - Unspecified abdominal pain Status: Acute (2) Perirectal abscess: Code(s): K61.1 - Rectal abscess Status: Acute (3) Hypokalemia: Code(s): E87.6 - Hypokalemia Status: Acute (4) Crohn's disease: Qualifiers: Digestive disease complication type: with abscess Gastrointestinal tract location: unspecified location Qualified Code(s): K50.914 - Crohn's disease, unspecified, with abscess Code(s): K50.90 - Crohn's disease, unspecified, without complications Status: Chronic (5) Elevated LFTs: Code(s): R79.89 - Other specified abnormal findings of blood chemistry Status: Acute Plan The patient presented to the emergency department for evaluation of ongoing nausea, vomiting, and abdominal pain as detailed in HPI. Labs, imaging, EKG, and all reports were personally reviewed. Her abdominal pain is a bit different than what she typically face appearance is with her Crohn's disease. Gallbladder was distended on CT scan though there was no evidence of cholecystitis on ultrasound. She has been retching and dry heaving which may very well be the cause of her pain. Continue supportive care with IV fluid rehydration and analgesics and antiemetics as needed. Continue steroids prescribed recently for Crohn's flare. She has been started on Zosyn for finding of perirectal abscess on CT. LFTs are mildly elevated and are stable compared to previous labs. Potassium will be replaced and monitored. Vital signs were reviewed and they are stable. GI and surgery have been consulted. Her home medications will be reviewed and resumed as appropriate. Findings and treatment plan were discussed with the patient. Questions were solicited and answered to satisfaction. The patient's medical management will be taken over by the hospitalist team in a.m. 64-year-old female presented with complaint of abdominal pain nausea or vomiting diarrhea patient is found to have severe Crohn disease to further evaluate patient had a CT scan of the abdomen which showed patient has abscess seen by GI recommending draining of the abscess once the MRI results are available and to discuss with the surgery service, patient states her symptoms are somewhat better today and cholestyramine 4 grams once daily has reduced the diarrhea, nausea has improved and able to tolerate clear liquid, will continue to monitor and further recommendation to follow Subjective Date/time seen: 10/21/24 16:00 Interval history: 64-year-old female presented with complaint of abdominal pain nausea or vomiting diarrhea patient is found to have severe Crohn disease to further evaluate patie nt had a CT scan of the abdomen which showed patient has abscess seen by GI recommending draining of the abscess once the MRI results are available and to discuss with the surgery service, patient states her symptoms are somewhat better today and cholestyramine 4 grams once daily has reduced the diarrhea, nausea has improved and able to tolerate clear liquid, will continue to monitor and further recommendation to follow Review of Systems Review of Systems: 12 systems were reviewed and are negative except for as per HPI. Exam Narrative: Patient is comfortable, NAD HEENT: eyes are clear and none icteric LUNGS:CTA HEART: RR S1S2 ABD: BS+, Soft and nontender Lower extremities: no edema SKIN: nonjaundiced Neuro: grossly intact. Objective Data Vital Signs Vital Signs: Vital Signs - 24 hr 10/20/24 16:25 10/20/24 17:00 10/20/24 20:00 Temperature Pulse Rate 94 Respiratory Rate 18 Blood Pressure 158/76 H Pulse Oximetry 97 97 Oxygen Delivery Room Air Room Air 10/20/24 21:29 10/20/24 21:33 10/21/24 04:14 Temperature 37.0 C 36.9 C Pulse Rate 99 90 Respiratory Rate 18 16 Blood Pressure 126/62 115/59 L Pulse Oximetry 99 95 Oxygen Delivery 10/21/24 09:30 10/21/24 14:20 Temperature 36.1 C L Pulse Rate 100 Respiratory Rate 16 Blood Pressure 136/58 L Pulse Oximetry 100 100 Oxygen Delivery Room Air Intake/Output Intake/Output: Intake & Output 10/18/24 10/19/24 10/20/24 10/21/24 23:59 23:59 23:59 23:59 Intake Total 550 920 Balance 550 920 Meds/Results Medications: Active Medications Generic Name Dose Route Start Last Admin Trade Name Freq PRN Reason Stop Dose Admin Albuterol 1 puff 10/20/24 22:42 Albuterol Sulfate (*Sp) Aerosol 1 Puff INHALATION Q4HRT PRN shortness of breath or wheezing Cholestyramine Resin 4 gm 10/21/24 12:15 10/21/24 13:06 Cholestyramine (W/ Sugar) 4 Gm Powd.Pack PO 4 gm DAILY KARAN Administration Duloxetine HCl 60 mg 10/21/24 09:00 10/21/24 09:32 Duloxetine Hcl 60 Mg Capsule.Dr PO 60 mg BID KARAN Administration Piperacillin/Tazobactam/Dextrose 3.375 gm in 50 mls @ 100 mls/hr 10/20/24 21:00 10/21/24 09:29 Zosyn 3.375 Gm/Ns 50 Ml IVPB 100 mls/hr Q6H KARAN Administration Morphine Sulfate 2 mg 10/20/24 22:41 Morphine Sulfate (*Crx) 2 Mg/Ml Inj IV PUSH Q4H PRN Pain Rated 4-6 Morphine Sulfate 4 mg 10/20/24 22:41 10/21/24 00:04 Morphine Sulfate (*Crx) 4 Mg/Ml Inj IV PUSH 4 mg Q4H PRN Administration Pain Rated 7-10 Ondansetron HCl 4 mg 10/21/24 12:12 Ondansetron Inj 4 Mg/2 Ml Vial IV PUSH Q6H PRN Nausea And Vomiting Prednisone 40 mg 10/21/24 09:00 10/21/24 13:06 Prednisone 20 Mg Tablet PO 40 mg DAILY KARAN Administration Radiology Results: ITS Impressions Abdomen/Pelvis CT 10/20/24 12:05 IMPRESSION: 1. Chronic anorectal inflammation with chronic small perirectal and presacral abscess. 2. Gallbladder distention, which may be secondary to fasting. Gallbladder with physical exam to exclude acute cholecystitis. Abdomen Ultrasound 10/20/24 13:34 IMPRESSION: 1. Gallbladder distention, which may be secondary to fasting. 2. Diffuse hepatic steatosis. Labs Labs: Laboratory Results - last 24 hr 10/21/24 05:19 WBC 10.1 H RBC 4.78 Hgb 13.8 Hct 45.0 MCV 94.1 MCH 28.9 MCHC 30.7 L RDW 13.6 Plt Count 256 MPV 8.9 Immature Gran % (Auto) 0.4 Neut % (Auto) 70.6 Lymph % (Auto) 20.1 [place] % (Auto) 6.4 Eos % (Auto) 1.7 Baso % (Auto) 0.8 Lymph # (Auto) 2.02 [place] # (Auto) 0.6 Eos # (Auto) 0.2 Baso # (Auto) 0.1 Abs Immat Gran (auto) 0.04 H Absolute Neuts (auto) 7.1 H Absolute Nucleated RBC 0.000 Nucleated RBC % 0.0 Sodium 131 L Potassium 4.4 Chloride 105 Carbon Dioxide 23 Anion Gap 3 L BUN 9 Creatinine 0.72 Estim Creat Clear Calc 73 Estimated GFR > 60 Glucose 98 Calcium 8.3 L Magnesium 2.1 Total Bilirubin 1.2 Direct Bilirubin 0.0 AST 82 H ALT 84 H Alkaline Phosphatase 155 H Total Protein 6.0 L Albumin 3.0 L Quality VTE Prophylaxis VTE prophylaxis: mechanical ordered
[2024-10-21 22:00] VITALS: BP 146/79; PULSE 100; RESP 20; TEMP 36.4; O2SAT 99
[2024-10-22] MEDS: PIPERACILLN/TAZ 3.375GM/NS50ML 3.375 GM/50 ML BAG IVPB ×2 (02:58→09:07)
[2024-10-22 05:50] LABS: Hematocrit 43.8 % (37.0-47.0); Hemoglobin 14.1 g/dL (12.0-15.0); Mean Corpuscular HGB Conc 32.2 g/dl (32-36); Mean Corpuscular Hemoglobin 29.1 pg (26-34); Mean Corpuscular Volume 90.3 fl (80-100); Mean Platelet Volume 8.6 fl (7.4-10.4); Platelet Count Result 270 k/mm3 (150-375); Red Blood Count 4.85 M/mm3 (4.2-5.4); Red Cell Distribution Width 13.2 % (11.5-14.5)
[2024-10-22 06:00] VITALS: BP 147/77; PULSE 82; RESP 20; TEMP 36.2; O2SAT 98
[2024-10-22 06:03] LABS: Anion Gap 5 mmol/L (4-12); Blood Urea Nitrogen 6 mg/dL (7-17); Calcium 9.3 mg/dL (8.4-10.2); Carbon Dioxide 28 mmol/L (22-30); Chloride 102 mmol/L (98-107); Estimated CRCL calculation 78 ml/min; Estimated Glomerular Filt Rate > 60; Glucose 123 mg/dL (65-110); Magnesium 2.1 mg/dL (1.6-2.3); Potassium 4.2 mmol/L (3.4-5.0); Sodium 135 mmol/L (137-145)
--- NOTE | 2024-10-22 06:47 | P.PNGI_ITS ---
Progress Note: A&P Assessment and Plan (1) Crohn's disease: Qualifiers: Digestive disease complication type: with abscess Gastrointestinal tract location: unspecified location Qualified Code(s): K50.914 - Crohn's disease, unspecified, with abscess Code(s): K50.90 - Crohn's disease, unspecified, without complications Status: Chronic Assessment and Plan: Pt with ileal Crohn's and perirectal / presacral inflammation but no fistula or abscess. Doing well on prednisone, ondansetron and cholestyramine. Stable for discharge home. Plan - [facility] [employer] [place] [facility] by her insurance company (our office working on that) - Discharge on prednisone 40 mg qD, Ondansetron 4 mg q 6-8 h prn nausea - Cholestyramine 4 g once a day - She has an upcoming appt in our office on 11/12 Subjective Date/time seen: 10/22/24 06:47 Interval history: Patient slept well, no nausea or abdominal pain. She still had 5 loose stools during the day yesterday. No fever. MRI did not show any changes compared to the previous one, no evidence of abscess. Objective Data Vital Signs Vital Signs: Vital Signs - 24 hr 10/21/24 09:30 10/21/24 14:20 10/21/24 20:00 Temperature 97.0 F L Pulse Rate 100 Respiratory Rate 16 Blood Pressure 136/58 L Pulse Oximetry 100 100 Oxygen Delivery Room Air Room Air 10/21/24 22:00 Temperature 97.6 F Pulse Rate 100 Respiratory Rate 20 Blood Pressure 146/79 H Pulse Oximetry 99 Oxygen Delivery Intake/Output Intake/Output: Intake & Output 10/19/24 10/20/24 10/21/24 10/22/24 23:59 23:59 23:59 23:59 Intake Total 550 1680 Balance 550 1680 Meds/Results Medications: Active Medications Generic Name Dose Route Start Last Admin Trade Name Freq PRN Reason Stop Dose Admin Albuterol 1 puff 10/20/24 22:42 Albuterol Sulfate (*Sp) Aerosol 1 Puff INHALATION Q4HRT PRN shortness of breath or wheezing Cholestyramine Resin 4 gm 10/21/24 12:15 10/21/24 13:06 Cholestyramine (W/ Sugar) 4 Gm Powd.Pack PO 4 gm DAILY KARAN Administration Duloxetine HCl 60 mg 10/21/24 09:00 10/21/24 17:49 Duloxetine Hcl 60 Mg Capsule.Dr PO 60 mg BID KARAN Administration Piperacillin/Tazobactam/Dextrose 3.375 gm in 50 mls @ 100 mls/hr 10/20/24 21:00 10/22/24 02:58 Zosyn 3.375 Gm/Ns 50 Ml IVPB 100 mls/hr Q6H KARAN Administration Morphine Sulfate 2 mg 10/20/24 22:41 Morphine Sulfate (*Crx) 2 Mg/Ml Inj IV PUSH Q4H PRN Pain Rated 4-6 Morphine Sulfate 4 mg 10/20/24 22:41 10/21/24 00:04 Morphine Sulfate (*Crx) 4 Mg/Ml Inj IV PUSH 4 mg Q4H PRN Administration Pain Rated 7-10 Ondansetron HCl 4 mg 10/21/24 12:12 Ondansetron Inj 4 Mg/2 Ml Vial IV PUSH Q6H PRN Nausea And Vomiting Prednisone 40 mg 10/21/24 09:00 10/21/24 13:06 Prednisone 20 Mg Tablet PO 40 mg DAILY KARAN Administration Radiology Results: ITS Impressions Abdomen/Pelvis CT 10/20/24 12:05 IMPRESSION: 1. Chronic anorectal inflammation with chronic small perirectal and presacral abscess. 2. Gallbladder distention, which may be secondary to fasting. Gallbladder with physical exam to exclude acute cholecystitis. Abdomen Ultrasound 10/20/24 13:34 IMPRESSION: 1. Gallbladder distention, which may be secondary to fasting. 2. Diffuse hepatic steatosis. 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 No drainable abscess. Labs Labs: Laboratory Results - last 24 hr 10/22/24 05:42 WBC 9.0 RBC 4.85 Hgb 14.1 Hct 43.8 MCV 90.3 MCH 29.1 MCHC 32.2 RDW 13.2 Plt Count 270 MPV 8.6 Sodium 135 L Potassium 4.2 Chloride 102 Carbon Dioxide 28 Anion Gap 5 BUN 6 L Creatinine 0.67 L Estim Creat Clear Calc 78 Estimated GFR > 60 Glucose 123 H Calcium 9.3 Magnesium 2.1
[2024-10-22] MEDS: DULoxetine HCL 60 MG CAPSULE.DR PO (09:06)
[2024-10-22] MEDS: CHOLESTYRAMINE (W/ SUGAR) 4 GM POWD.PACK PO (09:06)
[2024-10-22] MEDS: predniSONE 20 MG TABLET 40 MG PO (09:06)
--- NOTE | 2024-10-22 09:55 | P.DS_ITS ---
DS: Admitting Diagnosis Discharge Date Admitting Diagnosis Nausea, vomiting, and abdominal pain. DS: Discharge Diagnosis Discharge Diagnosis (1) Abdominal pain: Code(s): R10.9 - Unspecified abdominal pain Status: Acute (2) Crohn's ileitis: Code(s): K50.00 - Crohn's disease of small intestine without complications Status: Acute (3) Perirectal abscess: Code(s): K61.1 - Rectal abscess Status: Acute (4) Crohn's disease: Qualifiers: Digestive disease complication type: with abscess Gastrointestinal tract location: unspecified location Qualified Code(s): K50.914 - Crohn's disease, unspecified, with abscess Code(s): K50.90 - Crohn's disease, unspecified, without complications Status: Chronic (5) Hypokalemia: Code(s): E87.6 - Hypokalemia Status: Acute DS: Summary Hospital Course Hospital Course: 64-year-old female presented with complaint of abdominal pain nausea or vomiting diarrhea patient is found to have severe Crohn disease to further evaluate patient had a CT scan of the abdomen which showed patient has abscess seen by GI recommending draining of the abscess once the MRI results are available and to discuss with the surgery service, patient states her symptoms are somewhat better today and cholestyramine 4 grams once daily has reduced the diarrhea, nausea has improved and able to tolerate clear liquid, will continue to monitor and further recommendation to follow Mri of the abdomen did not show any abscess, patient is seen by her GI and advance her diet which is able to tolerate, patient is clinically stable and will discharge today on prednisone, ondansetron and cholestyramine. patient to follow up with her GI as scheduled. Time Spent with Patient Time attestation: Total time spent providing and/or coordinating discharge services: Exam Narrative: Patient is comfortable, NAD HEENT: eyes are clear and none icteric LUNGS:CTA HEART: RR S1S2 ABD: BS+, Soft and nontender Lower extremities: no edema SKIN: nonjaundiced Neuro: grossly intact. DS: Data Data Completed and Pending Labs on day of discharge: Labs from last 24 hours 10/22/24 05:42 WBC 9.0 RBC 4.85 Hgb 14.1 Hct 43.8 MCV 90.3 MCH 29.1 MCHC 32.2 RDW 13.2 Plt Count 270 MPV 8.6 Sodium 135 L Potassium 4.2 Chloride 102 Carbon Dioxide 28 Anion Gap 5 BUN 6 L Creatinine 0.67 L Estim Creat Clear Calc 78 Estimated GFR > 60 Glucose 123 H Calcium 9.3 Magnesium 2.1 Discharge Plan Discharge Attending physician on discharge: Brant Stockton Consulting providers: Anselmo Harding; Vera Perez; Michael Addison; Gabe Simms; Obed Kraus V. Discharging Clinician: Hossein Cutler Patient Disposition: Home, Self-Care Activity: as tolerated Diet: as tolerated Discharge Instructions: patient is instructed to watch her diet and avoid heavy fatty and bulky meals, patient to follow discharge care instruction from her GI and follow up as scheduled, patient to follow up with her primary care provider as soon as possible, patient is instructed if any symptoms redevelop to go to nearest ER. Patient Instructions: Antibiotic Form Patient Language: Burkinan Stand Alone Forms: General Discharge Information Follow-up/Referrals: Brooklynn Pennington NP [Primary Care Provider] - Michael Addison MD [Physician] - Discharge Medications: New prednisone 20 mg Tablet 40 mg PO DAILY Qty: 60 1RF ondansetron 4 mg tablet,disintegrating 4 mg PO Q6H PRN (Reason: nausea and vomiting) Qty: 20 0RF Continued albuterol sulfate 90 mcg/actuation HFA aerosol inhaler 1 inh inhalation Q4-6H PRN (Reason: shortness of breath or wheezing) Qty: 8.5 1RF duloxetine 60 mg capsule,delayed release(DR/EC) 60 mg PO BID Qty: 60 11RF lidocaine HCl [Aspercreme (lidocaine HCl)] 4 % Liquid Roll-On 1 ea TOPICAL PRN PRN (Reason: Pain) simethicone 80 mg tablet,chewable 80 mg PO QID PRN (Reason: Gastric Reflux) Qty: 30 0RF cholestyramine (with sugar) 4 gram Powder In Packet 1 ea PO BID@1000,1800 Qty: 30 0RF prednisone 20 mg tablet 40 mg PO DAILY Qty: 30 4RF prochlorperazine maleate [Compazine] 10 mg tablet 10 mg PO Q8H PRN (Reason: Nausea And Vomiting) Qty: 30 0RF Date of admission: 10/20/24 13:40 Primary Care Provider: Brooklynn Pennington Admitting Provider: Brant Stockton Attending physician on admission: Hossein Cutler Condition: Stable
--- NOTE | 2024-10-22 10:29 | WPDPN ---
Progress Note: A&P Assessment and Plan (1) Acute Crohn's disease: Qualifiers: Digestive disease complication type: unspecified complication Qualified Code(s): K50.919 - Crohn's disease, unspecified, with unspecified complications Code(s): K50.90 - Crohn's disease, unspecified, without complications Status: Acute Assessment and Plan: Patient has active Crohn's disease. Currently still on IV steroids. She is doing better. I do not think the presacral perirectal fluid collection is an active abscess. It likely represents a sterile Flaming 20 fluid collection from her Crohn's disease. There is no fistula at this time. Clinically she has no pain or tenderness in that area to suggest that she has an abscess or infection. Hopefully she can get treated with a biologic agent that will give her Crohn's disease under control. If the inflammation in the anal and rectal region resolves with proper treatment then I would expect a fluid collection to eventually resolved as well. She does not need the follow-up general surgery after discharge. Disposition as per hospitalist service. Subjective Date/time seen: 10/22/24 10:29 Interval history: Patient seems to be doing very well today. No abdominal pain. No nausea. Tolerating diet. White blood count is normal. She denies having any perirectal or perianal pain. Exam GI: Other: Unchanged perianal exam. No redness or induration. Minor hemorrhoids noted. No tenderness to palpation the perirectal perianal region. Objective Data Vital Signs Vital Signs: Vital Signs - 24 hr 10/21/24 14:20 10/21/24 20:00 10/21/24 22:00 Temperature 36.1 C L 36.4 C Pulse Rate 100 100 Respiratory Rate 16 20 Blood Pressure 136/58 L 146/79 H Pulse Oximetry 100 99 Oxygen Delivery Room Air 10/22/24 06:00 Temperature 36.2 C L Pulse Rate 82 Respiratory Rate 20 Blood Pressure 147/77 H Pulse Oximetry 98 Oxygen Delivery Intake/Output Intake/Output: Intake & Output 10/19/24 10/20/24 10/21/24 10/22/24 23:59 23:59 23:59 23:59 Intake Total 550 1680 1450 Balance 550 1680 1450 Meds/Results Medications: Active Medications Generic Name Dose Route Start Last Admin Trade Name Freq PRN Reason Stop Dose Admin Albuterol 1 puff 10/20/24 22:42 Albuterol Sulfate (*Sp) Aerosol 1 Puff INHALATION Q4HRT PRN shortness of breath or wheezing Cholestyramine Resin 4 gm 10/21/24 12:15 10/22/24 09:06 Cholestyramine (W/ Sugar) 4 Gm Powd.Pack PO 4 gm DAILY KARAN Administration Duloxetine HCl 60 mg 10/21/24 09:00 10/22/24 09:06 Duloxetine Hcl 60 Mg Capsule.Dr PO 60 mg BID KARAN Administration Piperacillin/Tazobactam/Dextrose 3.375 gm in 50 mls @ 100 mls/hr 10/20/24 21:00 10/22/24 09:07 Zosyn 3.375 Gm/Ns 50 Ml IVPB 100 mls/hr Q6H KARAN Administration Morphine Sulfate 2 mg 10/20/24 22:41 Morphine Sulfate (*Crx) 2 Mg/Ml Inj IV PUSH Q4H PRN Pain Rated 4-6 Morphine Sulfate 4 mg 10/20/24 22:41 10/21/24 00:04 Morphine Sulfate (*Crx) 4 Mg/Ml Inj IV PUSH 4 mg Q4H PRN Administration Pain Rated 7-10 Ondansetron HCl 4 mg 10/21/24 12:12 Ondansetron Inj 4 Mg/2 Ml Vial IV PUSH Q6H PRN Nausea And Vomiting Prednisone 40 mg 10/21/24 09:00 10/22/24 09:06 Prednisone 20 Mg Tablet PO 40 mg DAILY KARAN Administration Radiology Results: ITS Impressions Abdomen/Pelvis CT 10/20/24 12:05 IMPRESSION: 1. Chronic anorectal inflammation with chronic small perirectal and presacral abscess. 2. Gallbladder distention, which may be secondary to fasting. Gallbladder with physical exam to exclude acute cholecystitis. Abdomen Ultrasound 10/20/24 13:34 IMPRESSION: 1. Gallbladder distention, which may be secondary to fasting. 2. Diffuse hepatic steatosis. 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 No drainable abscess. Labs Labs: Laboratory Results - last 24 hr 10/22/24 05:42 WBC 9.0 RBC 4.85 Hgb 14.1 Hct 43.8 MCV 90.3 MCH 29.1 MCHC 32.2 RDW 13.2 Plt Count 270 MPV 8.6 Sodium 135 L Potassium 4.2 Chloride 102 Carbon Dioxide 28 Anion Gap 5 BUN 6 L Creatinine 0.67 L Estim Creat Clear Calc 78 Estimated GFR > 60 Glucose 123 H Calcium 9.3 Magnesium 2.1
== END 2024-10-22 12:51 | disposition home or self-care (01) ==
LOC: ANHED 13:54 → ANH3MED 10-22 09:52 → ANH3MEDSUR 10-23 07:29
PROVIDERS: Physician Assistant; Admitting Provider Hospitalist; Emergency Provider Preventive Medicine Aerospace Medicine; PCP Nurse Practitioner Family; Visit Provider Family Medicine
DX: K50.00 Crohn's disease of small intestine without complications (principal); K82.8 Other specified diseases of gallbladder; E87.6 Hypokalemia; R79.89 Other specified abnormal findings of blood chemistry; E78.5 Hyperlipidemia, unspecified; M85.80 Other specified disorders of bone density and structure, unspecified site; G47.33 Obstructive sleep apnea (adult) (pediatric); Z87.891 Personal history of nicotine dependence; Z90.49 Acquired absence of other specified parts of digestive tract; Z79.51 Long term (current) use of inhaled steroids; Z79.52 Long term (current) use of systemic steroids; Z79.899 Other long term (current) drug therapy
CPT/HCPCS: 36415; 72197; 74177; 76705; 80048; 80053; 80076; 83690; 83735; 85025; 85027; 85610; 85730; 96365; 96374; 96375; 96376; 99285; A9270; A9577; G0378; J2270; J2470; J2543; J2765; J7030; J7512; Q9967

== ENCOUNTER 2024-11-08 13:55 | Emergency (ER) | payer MEDICARE, SELFPAY ==
--- NOTE | ~2024-11-08 | XR_ITS ---
EXAMINATION: XR chest 2V DATE: 11/08/2024 14:42 INDICATION: Chest pain. TECHNIQUE: Frontal and lateral views of the chest were obtained. COMPARISON: Chest single view 11/21/2023 FINDINGS: There is no pneumonia, pleural effusion, or pneumothorax. The heart size is normal. There a re changes of disc replacements in cervical spine. IMPRESSION: 1. No acute cardiopulmonary disease. Reviewed, dictated and finalized at location A. AND VAULT SERVICE MECHANIC
--- NOTE | ~2024-11-08 | CT_ITS ---
CLINICAL INDICATION: Upper abdominal pain with nausea and vomiting. Personal history of Crohn's disea se COMPARISON: 10/20/2024. TECHNIQUE: Multiple contiguous axial images of the abdomen and pelvis were performed following the ad ministration of with 100 mL Omnipaque-350 intravenous contrast The dose-length product (DLP) was 1025.27 mGy-cm. Automated exposure control and iterative reconstruction technique were employed. FINDINGS/OBSERVATIONS: Visualized lower thorax: The bilateral lung bases are clear. The heart is of normal size, without pericardial effusion. Small hiatal hernia is present. Liver: The liver enhances homogeneously and isn't enlarged measuring 20 cm in longitudinal dimension. Gallbladder and biliary system: The gallbladder is only minimally distended, and otherwise unremarkable. Pancreas: The pancreas enhances homogeneously without ductal dilatation. Spleen: Punctate calcifications identified within the splenic parenchyma, suggesting prior granulomatous dise ase. The remainder of the spleen otherwise enhances homogeneously and is not enlarged measuring 11 cm in l ongitudinal dimension. Kidneys: The bilateral kidneys enhance symmetrically without hydronephrosis or renal calculi. Adrenal glands: Unremarkable. Gastrointestinal tract: Mural thickening within the rectum with inflammatory change in the presacral space. Interval resolution of the perirectal and presacral abscesses, seen on previous examination. Appendix: Surgically absent. Vasculature: Calcified atherosclerotic disease. Lymph nodes: No pathologically enlarged or morphologically suspicious lymph nodes within the retroperitoneum or at the root of the mesentery. Pelvic structures: The bladder is distended, and otherwise unremarkable. The uterus is anteverted and retroflexed. The uterus is nodular in contour suggesting prior fibroid d isease. Body wall and musculoskeletal: Degenerative disease within the lumbar spine with osteophyte formation, disc space narrowing and endp late changes. IMPRESSION: No acute intra-abdominal findings. Interval resolution of the perirectal and presacral abscesses compared with most recent examination. Reviewed, dictated and finalized at location A. E HAND CARDING IMPRESSION: No acute intra-abdominal findings. Interval resolution of the perirectal and presacral abscesses compared with mos t recent examination.
[2024-11-08 13:58] VITALS: BP 145/103; PULSE 122; RESP 19; TEMP 36.4; O2SAT 100
--- NOTE | 2024-11-08 13:58 | ECG_ITS ---
Test Date: 2024-11-08 14:04:51 Measurements Intervals [place] Rate: 122 P: 65 CA: 130 QRS: 9 QRSD: 70 T: 21 QT: 311 QTc: 444 Interpretive Statements SINUS TACHYCARDIA POSSIBLE RIGHT VENTRICULAR CONDUCTION DELAY LEFT VENTRICULAR HYPERTROPHY BASELINE ARTIFACT- I, II, III, AVR, AVL, AVF, V1-V2 ABNORMAL ECG Compared to ECG 06/23/2024 09:59:41 NO SIGNIFICANT CHANGE Electronically Signed On 11-08-2024 14:29:01 BANKING SERVICES ADVISOR by Jarred Maria D.O.
--- OUTSIDE RECORDS SUMMARY | 2024-11-08 13:58 | XMS_ITS | Clinical Summary ---
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 Active buPROPion XL (WELLBUTRIN XL) 150 MG 24 hr tablet Take 1 tablet (150 mg total) by mouth every morning. 3 Active dicyclomine (BENTYL) 10 MG capsule Take 1 capsule (10 mg total) by mouth 4 (four) times daily. 240 capsule 4 Active nystatin (MYCOSTATIN) powder Apply topically 3 (three) times daily. 15 g 4 Active pantoprazole EC (PROTONIX) 40 MG tablet Take 1 tablet (40 mg total) by mouth daily. 30 tablet 4 Active Active Problems Problem Noted Date Diagnosed Date Sepsis ([facility]) 11/18/2023 Family History Medical History Relation Comments Cancer Father Diabetes Father Hypertension Father Diabetes Mother Kidney Disease Mother Relation Status Comments Father Mother Social History Tobacco Use Types Packs/Day Years Used Date Smoking Tobacco: Some Days Cigarettes 0.5 50 Smokeless Tobacco: Never Tobacco Cessation:Counseling Given: Not Answered Comments:Patient states she started smoking at 4yrs old Alcohol Use Standard Drinks/Week Comments Yes 0 (1 standard drink = 0.6 oz pure alcohol) occational daniele 2 months-1 drink [facility] Utilities Answer Date Recorded In the past 12 months has th e [employer], gas, oil, or water company threatened to shut off services in your home? No 11/18/2023 Humiliation, Afraid, Rape, and Kick questionnair e Answer Date Recorded Within the last year, have y ou been afraid of your partner or ex-partner? No 11/18/2023 Within the last year, have y ou been humiliated or emotionally abused in other ways by your partner or ex-partner? No Within the last year, have y ou been kicked, hit, slapped, or otherwise physically hurt by your partner or ex-partner? No 11/18/2023 Within the last year, have y ou been raped or forced to have any kind of sexual activity by your partner or ex-partner? No 11/18/2023 Social Connection and Isolation Panel [NHANES] A nswer Date Recorded In a typical week, how many times do you talk on the phone with family, friends, or neighbors? Three times a week 11/18/2023 How often do you get togethe r with friends or relatives? Never 11/18/2023 How often do you attend chur or anabaptism services? Never 11/18/2023 Do you belong to any clubs o r organizations such as yazidism groups, unions, fraternal or athletic groups, or school groups? No 11/18/2023 How often do you attend meet ings of the clubs or organizations you belong to? Never 11/18/2023 Are you , , di vorced, , never , or living with a partner? 11/18/2023 AUDIT-C Answer Date Recorded Q1: How often do you have a drink containing alc ohol? Monthly or less 11/18/2023 Q2: How many drinks containi ng alcohol do you have on a typical day when you are drinking? 1 or 2 11/18/2023 Q3: How often do you have si x or more drinks on one occasion? Never 11/18/2023 Overall Financial Resource Strain (CARDIA) Answe r Date Recorded How hard is it for you to pa y for the very basics like food, housing, medical care, and heating? Somewhat hard 11/18/2023 Hunger Vital Sign Answer Date Recorded Within the past 12 months, y ou worried that your food would run out before you got the money to buy more. Never true 11/18/19 24 Within the past 12 months, t he food you bought just didn't last and you didn't have money to get more. Never true 11/18/2023 PRAPARE - Transportation Answer Date Re corded In the past 12 months, has l ack of transportation kept you from medical appointments or from getting medications? No 11/03 In the past 12 months, has l ack of transportation kept you from meetings, work, or from getting things needed for daily living? No 11/18/2023 Housing Stability Vital Sign Answer Jeet e Recorded In the last 12 months, was t here a time when you were not able to pay the mortgage or rent on time? No 11/18/2023 In the last 12 months, how many places have you lived? 1 11/18/2023 In the last 12 months, was t here a time when you did not have a steady place to sleep or slept in a group home (including now)? 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 Gender Identity Not on file Sexual Orientation Not on file Last Filed Vital Signs Vital Sign Reading Time Taken Comments Blood Pressure 141/85 03/10/2024 2:56 AM CDT Pulse 102 03/10/2024 2:56 AM CDT Temperature 36.4 C (97.5 F) 03/10/2024 2:56 AM CDT Respiratory Rate 18 03/10/2024 2:56 AM CDT Oxygen Saturation 95% 03/10/2024 2:56 AM CDT Inhaled Oxygen Concentration - - Weight 96.5 kg (212 lb 11.9 oz) 024 10:00 PM CDT Height 157.5 cm (5' 2 ) 03/09/2024 10:0 0 PM CDT Body Mass Index 38.91 03/09/2024 10:00 PM CDT Plan of Treatment Health Maintenance Due Date Last Done Comments Cervical Cancer Screening Pa p Smear (Age 30 to 64) Every 3 Years 1961 Colorectal Cancer Screening Colonoscopy (10 Years) 1961 Annual Physical 1964 Pneumococcal Vaccine: Pediatrics (0 to 5 Years) and At-Risk Patients (6 to 64 Years) (1 of 2 - PCV) 1967 Hepatitis C 1979 Cervical Cancer Screening Pa p with HPV Testing (Age 30 to 64) Every 5 Years 1991 Cervical Cancer Screening wi th HPV 1991 Mammogram Screening 2001 Lung Cancer Screening 2011 Zoster Vaccines (1 of 2) 2011 COVID-19 Vaccine (2023-2 5 season) 2024 07/10/2021, 10/11/2020, 09/20/2020 Influenza Adult (#1) 2024 DTaP, Tdap and Td Vaccines ( 2 - Td or Tdap) 10/13/2025 10/13/2015 RSV Immunization or 60+ Years (1 - 1-dose 75+ series) 2036 Meningococcal B Vaccine Aged Out No l onger eligible based on patient's age to complete this topic Meningococcal Vaccine Aged Out No sue arnoldo eligible based on patient's age to complete this topic RSV Immunizations Under 20 Months Aged Out No longer eligible b ased on patient's age to complete this topic Insurance Advance Directives * Full Code (Latest Code Status on File) Date Activated Date Inactivated Comments 11/18/2023 10:45 AM 11/21/2023 4:36 PM Care Teams Home Economics Teacher Relationship Specialty Start Date End Date Brooklynn Pennington APNP [address] [phone] PCP - General Nurse Practitioner Family 11/17/23
[2024-11-08 14:21] LABS: Basophils Absolute Auto 0.1 K/mm3 (0.0-0.1); Basophils Percent Auto 0.5 % (0.2-1.2); Eosinophils Absolute Auto 0.1 K/mm3 (0-0.3); Eosinophils Percent Auto 0.6 % (0-4.4); Hematocrit 49.6 % (37.0-47.0); Hemoglobin 16.2 g/dL (12.0-15.0); Immature Granulocyte Absolute 0.07 K/mm3 (0.00-0.031); Immature Granulocyte Percent A 0.6 % (0-0.5); Lymphocytes Absolute Auto 2.55 K/mm3 (0.9-3.2); Lymphocytes Percent Auto 23.4 % (18.3-44.2); Mean Corpuscular HGB Conc 32.7 g/dl (32-36); Mean Corpuscular Hemoglobin 29.3 pg (26-34); Mean Corpuscular Volume 89.9 fl (80-100); Mean Platelet Volume 8.5 fl (7.4-10.4); Monocytes Absolute Auto 0.6 K/mm3 (0.1-0.6); Monocytes Percent Auto 5.1 % (2.6-8.5); Neutrophils Absolute Auto 7.6 K/mm3 (1.3-6.7); Neutrophils Percent Auto 69.8 % (45.5-73.1); Platelet Count Result 279 k/mm3 (150-375); Red Blood Count 5.52 M/mm3 (4.2-5.4); Red Cell Distribution Width 13.6 % (11.5-14.5); White Blood Count 10.9 K/mm3 (4.5-10.0)
[2024-11-08 14:31] LABS: Albumin Level 3.8 g/dL (3.5-5.1); Alkaline Phosphatase 181 U/L (38-126); Anion Gap 14 mmol/L (4-12); Aspartate Amino Transferase 40 U/L (14-36); Bilirubin,Total 0.8 mg/dL (0.2-1.3); Blood Urea Nitrogen 9 mg/dL (7-17); Calcium 9.2 mg/dL (8.4-10.2); Carbon Dioxide 20 mmol/L (22-30); Chloride 101 mmol/L (98-107); Estimated CRCL calculation 75 ml/min; Estimated Glomerular Filt Rate > 60; Glucose 289 mg/dL (65-110); Lipase 123 U/L (23-300); Potassium 3.3 mmol/L (3.4-5.0); Sodium 135 mmol/L (137-145)
[2024-11-08 14:38] LABS: Alanine Aminotransferase 75 U/L (6-35)
[2024-11-08 14:39] LABS: Partial Thromboplastin Time 23.7 Seconds (22.3-36.8); Prothrombin Time 13.2 Seconds (11.1-14.7)
[2024-11-08 14:41] LABS: Troponin I < 0.012 ng/mL (0.000-0.034)
--- NOTE | 2024-11-08 16:07 | ED_ITS ---
HPI - Chest Pain General Chief Complaint: Chest Pain <MOO Sebastian Last Filed: 11/08/24 16:15> Stated Complaint: crohn's flare up, chest pain <MOO Sebastian Last Filed: 11/08/24 16:15> Time Seen by Provider: 11/08/24 16:07 <MOO Sebastian Last Filed: 11/08/24 16:15> Focused HPI: Patient is a 64 y/o female, with PMH of Crohn's on prednisone, who presents to the ED with c/o abd pain. Patient reports she ate oatmeal breakfast this morning and has had increased pain in her stomach since then. Described as a cramping. Worst in the upper abdomen. Was radiating to her chest, but this has since subsided some. Reports nausea, intermittent vomiting. Denies diarrhea, constipation. Last BM was today and normal. Denies rectal bleeding, melena. Reports she was recently admitted to the hospital for her crohn's. Sees Dr. Turner. Currently on prednisone 40mg daily. 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 Hx of previous SBO. GENERAL: Elderly, obese with BMI of 38.1, and in mild acute distress d/t pain. HEAD: Normocephalic, atraumatic. CHEST: Clear to auscultation. ?No respiratory distress. HEART: Regular rate and rhythm.? ABD: Diffuse pain in upper abdomen. Normoactive BS NEURO: ?Alert and oriented x3. Patient screened in triage and initial orders placed.? ?Additional care and disposition to be based upon?diagnostic testing and treatment. <MOO Sebastian Last Filed: 11/08/24 16:15> Source: patient and old records reviewed <MOO Sebastian Last Filed: 11/08/24 16:15> Mode of arrival: ambulatory <MOO Sebastian Last Filed: 11/08/24 16:15> Limitations: no limitations <MOO Sebastian Last Filed: 11/08/24 16:15> History of Present Illness HPI narrative: Agree with triage note above. Patient states that she is no longer having any chest pain, however the epigastric pain is still present. She is awaiting approval to start skyrizi for Crohn's disease, however lately she has been unable to take any steroids for this acute flare of Crohn's due to nausea and vomiting. <Gurpreet Fox PA-C - Last Filed: 11/09/24 02:51> Related Data Home Medications: Home Medications ?Medication ?Instructions ?Recorded ?Confirmed ?Last Taken ?Type lidocaine HCl 4 % topical liquid 1 ea topical PRN PRN Pain 06/23/24 10/20/24 Unknown History roll-on (Aspercreme (lidocaine HCl)) <Anaid Hernandez PA-C - Last Filed: 11/08/24 16:15> Allergies/Adverse Reactions: Allergies Allergy/AdvReac Type Severity Reaction Status Date / Time cyclobenzaprine Allergy Mild HYPERACTIVI Verified 11/08/24 14:06 TY infliximab (From Remicade) Allergy Mild Hives Verified 11/08/24 14:06 latex Allergy Mild Rash Verified 11/08/24 14:06 lisinopril Allergy Mild cough Verified 11/08/24 14:06 contact metal agent Allergy Hives Verified 11/08/24 14:06 hydrocodone AdvReac Mild N/V Verified 11/08/24 14:06 clindamycin AdvReac Unknown other Verified 11/08/24 14:06 hydromorphone (From Dilaudid) AdvReac Vomiting Verified 11/08/24 14:06 oxycodone AdvReac Nausea and Verified 11/08/24 14:06 Vomiting palm oil Allergy Intermediate Hives Uncoded 11/08/24 14:06 COCONUT Allergy Mild Hives / Uncoded 11/08/24 14:06 Red Face Delodium AdvReac Mild Vomiting Uncoded 11/08/24 14:06 <Anaid Hernandez PA-C - Last Filed: 11/08/24 16:15> Review of Systems 2 Review of Systems: All systems as dictated in HPI <MOO Silver Last Filed: 11/09/24 02:51> [facility] Past Medical History Medical History: Medical History Vitamin D deficiency Depression Kidney stones Crohn's disease C. difficile colitis (11/2023) Osteopenia Cellulitis Yeast infection Allergies Obstructive sleep apnea not on CPAP Hypertension not currently on medication Inflammatory arthritis Hyperlipidemia Obesity Postmenopausal Arthritis Tobacco abuse Incisional hernia without obstruction or gangrene Umbilical hernia Degenerative joint disease <MOO Sebastian Last Filed: 11/08/24 16:15> Surgical History Surgical History: Surgical History History of ankle surgery ORIF right ankle fracture History of fusion of cervical spine History of hernia repair History of tubal ligation History of right hemicolectomy (2019) History of colonoscopy <MOO Sebastian Last Filed: 11/08/24 16:15> Family History Family History: Family History Father Diabetes mellitus Malignant neoplasm of prostate Hypertension Family history of diabetes mellitus in first degree relative Family history of malignant neoplasm of urinary bladder Family history of heart disease in male family member before age 55 Mother Diabetes mellitus Family history of kidney disease Patient's mother is Other Family history of cardiovascular disease <MOO Sebastian Last Filed: 11/08/24 16:15> Social History Social History: Social History Social History: Surrogate medical decision maker: Reynold Colbert, spouse. Code status: Full code. Smoking packs per day: 0.5 Smoking cigarettes per day: 10.0 Years smoked: 50 Smoking pack-years: 25.00 Smoking status: Former smoker Second hand tobacco smoke exposure: No Alcohol intake: current Drinks per week: 1 Substance use: never Substance use type: does not use Do You Feel Safe in your Home?: Yes Lack of Transportation: No Lack of Food: Never True Current Housing: I Have Housing Concerned About Future Housing: No Difficulty Paying Gas/Electric Bills: No Difficulty Paying for Meds: No Currently Unemployed: No Education: Decline to Answer Difficulty w/ Childcare or Family Care: No Living arrangements: with family Occupation/Education: retired Spiritual care concerns: No Agree to blood products: Yes <MOO Sebastian Filed: 11/08/24 16:15> Exam 2 Narrative: GENERAL: Well-appearing, well-nourished, and in no acute distress. HEAD: Normocephalic, atraumatic. EYES: PERRLA and EOMI. ENT: Nares clear, no rhinorrhea or epistaxis. Mucous membranes moist. Oropharynx without tonsillar hypertrophy exudate or other lesions. NECK: Supple. No adenopathy or masses. CHEST: No respiratory distress. Clear to auscultation. No wheezes rales or rhonchi HEART: Regular rate and rhythm. No murmur heard. Normal peripheral pulses. ABDOMEN: Tenderness to the epigastrium right upper quadrant. Soft, otherwise nontender, nondistended, normal active bowel sounds. MSK: Normal range of motion. No edema. SKIN: Warm, dry, no rash. NEURO: Alert and oriented x4. No focal deficits. PSYCH: Normal mood and affect. <MOO Silver Last Filed: 11/09/24 02:51> Course Vital Signs Vital signs: Vital Signs Temperature 97.5 F L 11/08/24 13:58 Pulse Rate 122 H 11/08/24 13:58 Respiratory Rate 19 11/08/24 13:58 Blood Pressure 145/103 H 11/08/24 13:58 Pulse Oximetry 100 11/08/24 13:58 Oxygen Delivery Room Air 11/08/24 13:58 Temperature 97.5 F L 11/08/24 13:58 Pulse Rate 117 H 11/08/24 20:20 Respiratory Rate 20 11/08/24 20:20 Blood Pressure 122/80 11/08/24 20:20 Pulse Oximetry 95 11/08/24 20:20 Oxygen Delivery Room Air 11/08/24 18:00 <MOO Sebastian Last Filed: 11/08/24 16:15> Vital Signs Temperature 97.5 F L 11/08/24 13:58 Pulse Rate 122 H 11/08/24 13:58 Respiratory Rate 19 11/08/24 13:58 Blood Pressure 145/103 H 11/08/24 13:58 Pulse Oximetry 100 11/08/24 13:58 Oxygen Delivery Room Air 11/08/24 13:58 Temperature 97.5 F L 11/08/24 13:58 Pulse Rate 117 H 11/08/24 20:20 Respiratory Rate 20 11/08/24 20:20 Blood Pressure 122/80 11/08/24 20:20 Pulse Oximetry 95 11/08/24 20:20 Oxygen Delivery Room Air 11/08/24 18:00 <Gurpreet Fox PA-C - Last Filed: 11/09/24 02:51> MDM - Chest Pain MDM Narrative Medical decision making narrative: This is a 64-year-old female who presents to the ED for chief complaint of abdominal pain, nausea, vomiting. Vitals are showing mild tachycardia but otherwise unremarkable. Exam is remarkable for the above. Shows mildly elevated white count of 10.9, however she appears hemoconcentrated on the CBC. CMP shows some evidence of dehydration as well with an elevated glucose. No evidence of DKA. Troponin is negative. CT imaging of the abdomen and pelvis with IV contrast: IMPRESSION: No acute intra-abdominal findings. Interval resolution of the perirectal and presacral abscesses compared with most recent examination. Patient was given fluids, Reglan and pain meds here with good effect. She states the Reglan was very helpful for her nausea. She feels comfortable go with a short course of Reglan to help her take her medications and she will follow-up with GI as scheduled for her Crohn's flare. Patient will be discharged in stable condition. Supportive measures discussed and return precautions given. Patient is understanding and agreeable with plan for discharge with PCP follow-up. <Gurpreet Fox PA-C - Last Filed: 11/09/24 02:51> Lab Data Result diagrams: 11/08/24 14:12 11/08/24 14:12 <Anaid Hernandez PA-C - Last Filed: 11/08/24 16:15> Labs: Lab Results 11/08/24 11/08/24 Range/Units 14:12 17:03 WBC 10.9 H (4.5-10.0) K/mm3 RBC 5.52 H (4.2-5.4) M/mm3 Hgb 16.2 H (12.0-15.0) g/dL Hct 49.6 H (37.0-47.0) % MCV 89.9 (80-100) fl MCH 29.3 (26-34) pg MCHC 32.7 (32-36) g/dl RDW 13.6 (11.5-14.5) % Plt Count 279 (150-375) k/mm3 MPV 8.5 (7.4-10.4) fl Immature Gran % (Auto) 0.6 H (0-0.5) % Neut % (Auto) 69.8 (45.5-73.1) % Lymph % (Auto) 23.4 (18.3-44.2) % [place] % (Auto) 5.1 (2.6-8.5) % Eos % (Auto) 0.6 (0-4.4) % Baso % (Auto) 0.5 (0.2-1.2) % Lymph # (Auto) 2.55 (0.9-3.2) K/mm3 [place] # (Auto) 0.6 (0.1-0.6) K/mm3 Eos # (Auto) 0.1 (0-0.3) K/mm3 Baso # (Auto) 0.1 (0.0-0.1) K/mm3 Abs Immat Gran (auto) 0.07 H (0.00-0.031) K/mm3 Absolute Neuts (auto) 7.6 H (1.3-6.7) K/mm3 Absolute Nucleated RBC 0.000 (0.0-0.012) K/mm3 Nucleated RBC % 0.0 (0.0-0.2) % PT 13.2 (11.1-14.7) Seconds INR 1.0 APTT 23.7 (22.3-36.8) Seconds Sodium 135 L (137-145) mmol/L Potassium 3.3 L (3.4-5.0) mmol/L Chloride 101 (98-107) mmol/L Carbon Dioxide 20 L (22-30) mmol/L Anion Gap 14 H (4-12) mmol/L BUN 9 (7-17) mg/dL Creatinine 0.71 (0.7-1.0) mg/dL Estim Creat Clear Calc 75 ml/min Estimated GFR > 60 (59 - ) Glucose 289 H (65-110) mg/dL Calcium 9.2 (8.4-10.2) mg/dL Total Bilirubin 0.8 (0.2-1.3) mg/dL AST 40 H (14-36) U/L ALT 75 H (6-35) U/L Alkaline Phosphatase 181 H (38-126) U/L Troponin I < 0.012 < 0.012 (0.000-0.034) ng/mL Total Protein 7.0 (6.3-8.2) g/dL Albumin 3.8 (3.5-5.1) g/dL Lipase 123 (23-300) U/L <Anaid Hernandez PA-C - Last Filed: 11/08/24 16:15> Lab Results 11/08/24 11/08/24 Range/Units 14:12 17:03 WBC 10.9 H (4.5-10.0) K/mm3 RBC 5.52 H (4.2-5.4) M/mm3 Hgb 16.2 H (12.0-15.0) g/dL Hct 49.6 H (37.0-47.0) % MCV 89.9 (80-100) fl MCH 29.3 (26-34) pg MCHC 32.7 (32-36) g/dl RDW 13.6 (11.5-14.5) % Plt Count 279 (150-375) k/mm3 MPV 8.5 (7.4-10.4) fl Immature Gran % (Auto) 0.6 H (0-0.5) % Neut % (Auto) 69.8 (45.5-73.1) % Lymph % (Auto) 23.4 (18.3-44.2) % [place] % (Auto) 5.1 (2.6-8.5) % Eos % (Auto) 0.6 (0-4.4) % Baso % (Auto) 0.5 (0.2-1.2) % Lymph # (Auto) 2.55 (0.9-3.2) K/mm3 [place] # (Auto) 0.6 (0.1-0.6) K/mm3 Eos # (Auto) 0.1 (0-0.3) K/mm3 Baso # (Auto) 0.1 (0.0-0.1) K/mm3 Abs Immat Gran (auto) 0.07 H (0.00-0.031) K/mm3 Absolute Neuts (auto) 7.6 H (1.3-6.7) K/mm3 Absolute Nucleated RBC 0.000 (0.0-0.012) K/mm3 Nucleated RBC % 0.0 (0.0-0.2) % PT 13.2 (11.1-14.7) Seconds INR 1.0 APTT 23.7 (22.3-36.8) Seconds Sodium 135 L (137-145) mmol/L Potassium 3.3 L (3.4-5.0) mmol/L Chloride 101 (98-107) mmol/L Carbon Dioxide 20 L (22-30) mmol/L Anion Gap 14 H (4-12) mmol/L BUN 9 (7-17) mg/dL Creatinine 0.71 (0.7-1.0) mg/dL Estim Creat Clear Calc 75 ml/min Estimated GFR > 60 (59 - ) Glucose 289 H (65-110) mg/dL Calcium 9.2 (8.4-10.2) mg/dL Total Bilirubin 0.8 (0.2-1.3) mg/dL AST 40 H (14-36) U/L ALT 75 H (6-35) U/L Alkaline Phosphatase 181 H (38-126) U/L Troponin I < 0.012 < 0.012 (0.000-0.034) ng/mL Total Protein 7.0 (6.3-8.2) g/dL Albumin 3.8 (3.5-5.1) g/dL Lipase 123 (23-300) U/L <MOO Silver Last Filed: 11/09/24 02:51> Discharge Plan Discharge Clinical Impression: Atypical chest pain Crohn disease Qualifiers: Gastrointestinal tract location: unspecified location Digestive disease complication type: with abscess Qualified Code(s): K50.914 - Crohn's disease, unspecified, with abscess <MOO Sebastian Last Filed: 11/08/24 16:15> Patient Disposition: Home, Self-Care <MOO Sebastian Last Filed: 11/08/24 16:15> Condition: Stable <MOO Sebastian Last Filed: 11/08/24 16:15> Instructions: Antibiotic Form <Anaid Hernandez PA-C - Last Filed: 11/08/24 16:15> Additional Instructions: Your exam and imaging today are reassuring overall. Please take Reglan at home as needed for nausea. Follow-up closely with your GI specialist on this issue. If you have any new or worsening symptoms please return to the ER for further evaluation. <Anaid Hernandez PA-C - Last Filed: 11/08/24 16:15> Patient Language: Moroccan <MOO Sebastian Last Filed: 11/08/24 16:15> Prescriptions: New metoclopramide HCl [Reglan] 10 mg tablet 10 mg PO Q6H PRN (Reason: nausea and vomiting) Qty: 10 0RF No Action albuterol sulfate 90 mcg/actuation HFA aerosol inhaler 1 inh inhalation Q4-6H PRN (Reason: shortness of breath or wheezing) Qty: 8.5 1RF duloxetine 60 mg capsule,delayed release(DR/EC) 60 mg PO BID Qty: 60 11RF lidocaine HCl [Aspercreme (lidocaine HCl)] 4 % Liquid Roll-On 1 ea TOPICAL PRN PRN (Reason: Pain) prednisone 20 mg Tablet 40 mg PO DAILY Qty: 60 1RF simethicone 80 mg tablet,chewable 80 mg PO QID PRN (Reason: Gastric Reflux) Qty: 30 0RF ondansetron 4 mg tablet,disintegrating 4 mg PO Q6H PRN (Reason: nausea and vomiting) Qty: 20 0RF cholestyramine (with sugar) 4 gram Powder In Packet 1 ea PO BID@1000,1800 Qty: 30 0RF prednisone 20 mg tablet 40 mg PO DAILY Qty: 30 4RF prochlorperazine maleate [Compazine] 10 mg tablet 10 mg PO Q8H PRN (Reason: Nausea And Vomiting) Qty: 30 0RF <Anaid Hernandez PA-C - Last Filed: 11/08/24 16:15> Follow-up/Referrals: Brooklynn Pennington, ASSISTANT CASE MANAGER [Primary Care Provider] - <Anaid Hernandez PA-C - Last Filed: 11/08/24 16:15> Time of Disposition: 20:50 <Anaid Hernandez PA-C - Last Filed: 11/08/24 16:15> 20:50 <Gurpreet Fox PA-C - Last Filed: 11/09/24 02:51>
--- NOTE | 2024-11-08 16:44 | ECG_ITS ---
Test Date: 2024-11-08 16:48:30 Measurements Intervals [place] Rate: 121 P: 28 WV: 100 QRS: -6 QRSD: 85 T: 35 QT: 333 QTc: 473 Interpretive Statements SINUS TACHYCARDIA LEFT VENTRICULAR HYPERTROPHY AND ST-T CHANGE BASELINE ARTIFACT- I, II, III, AVR, AVL ABNORMAL ECG Compared to ECG 11/08/2024 14:04:51 NO SIGNIFICANT CHANGE Electronically Signed On 11-08-2024 16:56:40 HOUSEKEEPING ATTENDANT by Jarred Maria D.O.
[2024-11-08] MEDS: ASPIRIN 81 MG CHEWABLE TABLET 324 MG PO (16:58)
[2024-11-08] MEDS: ONDANSETRON INJ 4 MG/2 ML VIAL IV PUSH (16:59)
[2024-11-08] MEDS: FAMOTIDINE 20 MG/2 ML VIAL IV PUSH (17:00)
[2024-11-08 17:36] LABS: Troponin I < 0.012 ng/mL (0.000-0.034)
--- OUTSIDE RECORDS SUMMARY | 2024-11-08 17:58 | XMS_ITS | Clinical Summary ---
Author Organization [facility] Address [address] [place] [id number] Care Team Providers Care Associate Professor Of Counseling Name Role Phone Brooklynn Pennington Primary Care Provider Allergies Active Allergy Reactions Criticality Noted Date [...] Problems Problem Noted Date Diagnosed Date Sepsis ([facility]/HCC [facility]/HCC) 11/18/2023 Family History Medical History Relation Comments [...] pure alcohol) occational daniele 2 months-1 drink [facility] Utilities Answer Date Recorded In the past 12 months has th e [employer], gas, oil, or water company threatened to [...] How often do you attend chur or restoration services? Never 11/18/2023 Do you belong to any clubs o r organizations such as restorationism groups, unions, fraternal or athletic groups, or [...] place to sleep or slept in a intermediate (including now)? 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
[2024-11-08 18:00] VITALS: BP 132/78; PULSE 113; RESP 16; O2SAT 100
[2024-11-08 18:45] VITALS: BP 134/70; PULSE 116; RESP 14; O2SAT 98
[2024-11-08] MEDS: LACTATED RINGERS 1,000 ML 999 ML IV CONT ×2 (19:29)
[2024-11-08] MEDS: METOCLOPRAMIDE HCL INJ 10 MG/2 ML VIAL IV PUSH (19:29)
[2024-11-08] MEDS: MORPHINE SULFATE (*CRX) 4 MG/ML INJ IV PUSH (20:01)
[2024-11-08 20:20] VITALS: BP 122/80; PULSE 117; RESP 20; O2SAT 95
== END 2024-11-08 21:42 | disposition home or self-care (01) ==
PROVIDERS: Emergency Medicine; Emergency Provider Physician Assistant; PCP Nurse Practitioner Family
DX: K50.914 Crohn's disease, unspecified, with abscess (principal); E55.9 Vitamin D deficiency, unspecified; E66.9 Obesity, unspecified; Z68.38 Body mass index [BMI] 38.0-38.9, adult; G47.33 Obstructive sleep apnea (adult) (pediatric); M85.80 Other specified disorders of bone density and structure, unspecified site; M19.90 Unspecified osteoarthritis, unspecified site; Z98.84 Bariatric surgery status; Z87.891 Personal history of nicotine dependence; Z87.442 Personal history of urinary calculi; Z90.49 Acquired absence of other specified parts of digestive tract; R00.0 Tachycardia, unspecified; R94.31 Abnormal electrocardiogram [ECG] [EKG]; I51.7 Cardiomegaly
CPT/HCPCS: 36415; 71046; 74177; 80053; 83690; 84484; 85025; 85610; 85730; 93005; 96361; 96374; 96375; 99284; A9270; J2270; J2405; J2765; J7120; Q9967

== ENCOUNTER 2024-11-17 18:03 | Emergency (ER) | payer MEDICARE, SELFPAY ==
--- NOTE | ~2024-11-17 | CT_ITS ---
CLINICAL INDICATION: Personal history of Crohn's disease with nausea vomiting and abdominal pain COMPARISON: 11/08/2024. TECHNIQUE: Multiple contiguous axial images of the abdomen and pelvis were performed following the ad ministration of with 100 mL Omnipaque-350 intravenous contrast The dose-length product (DLP) was 1337.67 mGy-cm. Automated exposure control and iterative reconstruction technique were employed. FINDINGS/OBSERVATIONS: Visualized lower thorax: The bilateral lung bases are clear. The heart is of normal size, without pericardial effusion. Small hiatal hernia is present. Liver: The liver enhances homogeneously and is enlarged measuring 20 cm in longitudinal dimension. Gallbladder and biliary system: The gallbladder is distended, containing dependent calcifications, without surrounding inflammatory c hange.. Pancreas: The pancreas enhances homogeneously without ductal dilatation. Spleen: Punctate calcifications identified within the splenic parenchyma, suggesting prior granulomatous dise ase. The remainder of the spleen otherwise enhances homogeneously and is not enlarged measuring 11 cm in l ongitudinal dimension. Kidneys: The bilateral kidneys enhance symmetrically without hydronephrosis or renal calculi. Adrenal glands: Unremarkable. Gastrointestinal tract: Mural thickening within the rectum with inflammatory change in the presacral space. Postoperative change within the right lower quadrant. Appendix: Surgically absent. Vasculature: Calcified atherosclerotic disease. Lymph nodes: No pathologically enlarged or morphologically suspicious lymph nodes within the retroperitoneum or at the root of the mesentery. Pelvic structures: The bladder is distended, and otherwise unremarkable. The uterus is anteverted and retroflexed. The uterus is nodular in contour suggesting prior fibroid d isease. Body wall and musculoskeletal: Degenerative disease within the lumbar spine with osteophyte formation, disc space narrowing and endp late changes. Fat-containing left inguinal hernia. IMPRESSION: No acute findings within the abdomen or pelvis. Innumerable nonacute findings, as detailed above. Reviewed, dictated and finalized at location A. DENT INTERN
--- NOTE | ~2024-11-17 | XR_ITS ---
CHEST RADIOGRAPH CLINICAL HISTORY: N/V . COMPARISON: 11/08/2024 TECHNIQUE: Single portable view of the chest. FINDINGS The cardiomediastinal silhouette is unremarkable. The lungs are clear. Visualized osseous structures and soft tissues are unremarkable. IMPRESSION: No focal infiltrate or effusion. Reviewed, dictated and finalized at location A. MATIC TRIMMING SEWER
--- OUTSIDE RECORDS SUMMARY | 2024-11-17 18:06 | XMS_ITS | Clinical Summary ---
Author Organization [facility] Address [address] [place] [address] Care Team Providers Care Underwriting Analyst Name Role Phone Brooklynn Pennington Primary Care Provider [phone] Allergies Active Allergy Reactions Criticality Noted Date [...] Problems Problem Noted Date Diagnosed Date Sepsis ([facility]/HCC [facility]/HCC) 11/18/2023 Family History Medical History Relation [...] pure alcohol) occational daniele 2 months-1 drink [facility] Utilities Answer Date Recorded In the past 12 months has th e [employer], gas, oil, or water company threatened to [...] How often do you attend chur or mu-ism services? Never 11/18/2023 Do you belong to any clubs o r organizations such as amish groups, unions, fraternal or athletic groups, or [...] place to sleep or slept in a jail (including now)? 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
[2024-11-17 18:18] VITALS: BP 145/93; PULSE 119; RESP 97; TEMP 36.5; O2SAT 97
--- NOTE | 2024-11-17 18:19 | ECG_ITS ---
Test Date: 2024-11-17 18:23:20 Measurements Intervals [place] Rate: 118 P: 35 [place]: 104 QRS: -8 QRSD: 80 T: 15 QT: 315 QTc: 443 Interpretive Statements SINUS TACHYCARDIA WITH SHORT OK INTERVAL DELAYED PRECORDIAL R/S TRANSITION LEFT VENTRICULAR HYPERTROPHY MINIMAL Q WAVES- HIGH LATERAL LEADS BASELINE ARTIFACT- I, II, III, AVR, AVL, AVF, V1 ABNORMAL ECG Compared to ECG 11/08/2024 16:48:30 NO SIGNIFICANT CHANGE Electronically Signed On 11-18-2024 08:04:59 BEAD FILLER by Jarred Maria D.O.
--- NOTE | 2024-11-17 18:20 | PC.NURSE ---
patient reports that she has been having some intermittent chest pain this afternoon, EKG ordered .
[2024-11-17 21:49] VITALS: BP 152/88; PULSE 117; RESP 16; O2SAT 100
[2024-11-17] MEDS: MORPHINE SULFATE (*CRX) 4 MG/ML INJ IV PUSH (21:57)
[2024-11-17] MEDS: SODIUM CHLORIDE 0.9% IV 2,000 ML 999 ML IV CONT (21:57)
--- OUTSIDE RECORDS SUMMARY | 2024-11-17 21:57 | XMS_ITS | Clinical Summary ---
Author Organization [facility] Address [address] [place] [id number] Care Team Providers Care Acid Changer Name Role Phone Brooklynn Pennington Primary Care Provider [phone] Allergies Active Allergy Reactions Criticality Noted Date [...] Problems Problem Noted Date Diagnosed Date Sepsis ([facility]/HCC [facility]/HCC) 11/18/2023 Family History Medical History Relation Comments [...] pure alcohol) occational daniele 2 months-1 drink [facility] Utilities Answer Date Recorded In the past 12 months has th e [employer], gas, oil, or water company threatened to [...] How often do you attend chur or uatsdin services? Never 11/18/2023 Do you belong to any clubs o r organizations such as buddhism groups, unions, fraternal or athletic groups, or [...] place to sleep or slept in a skilled nursing (including now)? 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
[2024-11-17] MEDS: ONDANSETRON INJ 4 MG/2 ML VIAL IV PUSH (21:58)
[2024-11-17 22:10] LABS: Basophils Percent Auto 0.3 % (0.2-1.2); Hematocrit 49.2 % (37.0-47.0); Hemoglobin 16.2 g/dL (12.0-15.0); Immature Granulocyte Absolute 0.07 K/mm3 (0.00-0.031); Immature Granulocyte Percent A 0.6 % (0-0.5); Lymphocytes Absolute Auto 0.55 K/mm3 (0.9-3.2); Lymphocytes Percent Auto 4.6 % (18.3-44.2); Mean Corpuscular HGB Conc 32.9 g/dl (32-36); Mean Corpuscular Hemoglobin 29.7 pg (26-34); Mean Corpuscular Volume 90.3 fl (80-100); Mean Platelet Volume 8.7 fl (7.4-10.4); Monocytes Absolute Auto 0.1 K/mm3 (0.1-0.6); Monocytes Percent Auto 0.9 % (2.6-8.5); Neutrophils Absolute Auto 11.3 K/mm3 (1.3-6.7); Neutrophils Percent Auto 93.6 % (45.5-73.1); Platelet Count Result 297 k/mm3 (150-375); Red Blood Count 5.45 M/mm3 (4.2-5.4); Red Cell Distribution Width 14.3 % (11.5-14.5)
[2024-11-17 22:20] LABS: INR 0.9; Prothrombin Time 12.9 Seconds (11.1-14.7)
[2024-11-17 22:27] LABS: Atypical Lymphocytes Present; Platelet Estimate Adequate (Adequate); Schistocytes None Seen
[2024-11-17 22:32] LABS: Lactic Acid Reflex 2.8 mmol/L (0.7-2.0)
[2024-11-17 22:36] LABS: Alanine Aminotransferase 70 U/L (6-35); Albumin Level 4.2 g/dL (3.5-5.1); Alkaline Phosphatase 210 U/L (38-126); Anion Gap 10 mmol/L (4-12); Aspartate Amino Transferase 70 U/L (14-36); Blood Urea Nitrogen 13 mg/dL (7-17); Calcium 9.8 mg/dL (8.4-10.2); Carbon Dioxide 26 mmol/L (22-30); Chloride 99 mmol/L (98-107); Estimated CRCL calculation 75 ml/min; Estimated Glomerular Filt Rate > 60; Glucose 221 mg/dL (65-110); Lipase 65 U/L (23-300); Magnesium 2.1 mg/dL (1.6-2.3); Potassium 4.9 mmol/L (3.4-5.0); Sodium 135 mmol/L (137-145)
[2024-11-17 22:45] LABS: Influenza A QL RT-PCR Negative (Negative); Influenza B QL RT-PCR Negative (Negative); RSV RNA, RT-PCR Negative (Negative); SARS-CoV-2 RNA PCR Negative (Negative)
--- NOTE | 2024-11-17 23:44 | PC.NURSE ---
Report received from TYLER Piper. Assumed care of patient at this time.
[2024-11-18] MEDS: PROCHLORPERAZINE EDISYLATE 10 MG/2 ML VIAL IM (00:23)
[2024-11-18] MEDS: diphenhydrAMINE HCl INJ 50 MG/ML VIAL 25 MG IV PUSH (00:24)
[2024-11-18 00:42] VITALS: BP 146/66; PULSE 102; RESP 14; O2SAT 97
[2024-11-18 01:08] LABS: Reflex Lactic Acid Yes or No Add Lactic
[2024-11-18 01:25] VITALS: BP 148/83; PULSE 95; RESP 16; O2SAT 94
[2024-11-18 02:35] LABS: Lactic Acid 1.7 mmol/L (0.7-2.0)
--- NOTE | 2024-11-18 02:37 | ED_ITS ---
HPI - General Adult General Chief complaint: Nausea/Vomiting/Diarrhea Stated complaint: crohn's flare n/v, abd pain Time Seen by Provider: 11/17/24 21:33 History of Present Illness HPI narrative: This is a 64-year-old female with a history of abdominal pain and nausea vomiting presenting with her typical pain. Pain is located above her belly button. Associated with persistent nausea and vomiting. She was unable to take her home Reglan Compazine or Zofran due to the vomiting. Patient follows with Dr. Turner. Related Data Home Medications ?Medication ?Instructions ?Recorded ?Confirmed ?Last Taken ?Type lidocaine HCl 4 % topical liquid 1 ea topical PRN PRN Pain 06/23/24 11/12/24 Unknown History roll-on (Aspercreme (lidocaine HCl)) Allergies Allergy/AdvReac Type Severity Reaction Status Date / Time cyclobenzaprine Allergy Mild HYPERACTIVI Verified 11/12/24 13:11 TY infliximab (From Remicade) Allergy Mild Hives Verified 11/12/24 13:11 latex Allergy Mild Rash Verified 11/12/24 13:11 lisinopril Allergy Mild cough Verified 11/12/24 13:11 contact metal agent Allergy Hives Verified 11/12/24 13:11 hydrocodone AdvReac Mild N/V Verified 11/12/24 13:11 clindamycin AdvReac Unknown other Verified 11/12/24 13:11 hydromorphone (From Dilaudid) AdvReac Vomiting Verified 11/12/24 13:11 oxycodone AdvReac Nausea and Verified 11/12/24 13:11 Vomiting palm oil Allergy Intermediate Hives Uncoded 11/12/24 13:11 COCONUT Allergy Mild Hives / Uncoded 11/12/24 13:11 Red Face Delodium AdvReac Mild Vomiting Uncoded 11/12/24 13:11 [facility] Past Medical History Medical History Vitamin D deficiency Depression Kidney stones Crohn's disease C. difficile colitis (11/2023) Osteopenia Cellulitis Yeast infection Allergies Obstructive sleep apnea not on CPAP Hypertension not currently on medication Inflammatory arthritis Hyperlipidemia Obesity Postmenopausal Arthritis Tobacco abuse Incisional hernia without obstruction or gangrene Umbilical hernia Degenerative joint disease Surgical History Surgical History History of ankle surgery ORIF right ankle fracture History of fusion of cervical spine History of hernia repair History of tubal ligation History of right hemicolectomy (2019) History of colonoscopy Family History Family History Father Diabetes mellitus Malignant neoplasm of prostate Hypertension Family history of diabetes mellitus in first degree relative Family history of malignant neoplasm of urinary bladder Family history of heart disease in male family member before age 55 Mother Diabetes mellitus Family history of kidney disease Patient's mother is Other Family history of cardiovascular disease Social History Social History Social History: Surrogate medical decision maker: Reynold Colbert, spouse. Code status: Full code. Smoking packs per day: 0.5 Smoking cigarettes per day: 10.0 Years smoked: 50 Smoking pack-years: 25.00 Smoking status: Former smoker Second hand tobacco smoke exposure: No Alcohol intake: current Drinks per week: 1 Substance use: never Substance use type: does not use Do You Feel Safe in your Home?: Yes Lack of Transportation: No Lack of Food: Never True Current Housing: I Have Housing Concerned About Future Housing: No Difficulty Paying Gas/Electric Bills: No Difficulty Paying for Meds: No Currently Unemployed: No Education: Decline to Answer Difficulty w/ Childcare or Family Care: No Living arrangements: with family Occupation/Education: retired Spiritual care concerns: No Agree to blood products: Yes Exam 2 Narrative: APPEARANCE: No apparent distress. Head: atraumatic. EYES: EOMI, NOSE: Atraumatic NECK: Trachea midline RESPIRATORY: No increased rate of breathing clear to auscultation CARDIOVASCULAR: RRR, no peripheral edema ABDOMINAL: Non-distended, diffusely tender, no guarding rebound MUSCULOSKELETAl: No obvious deformities NEURO: Alert. Moving 4/4 extremities SKIN:: Warm, dry. Normal color PSYCHIATRIC: Normal affect Course Vital Signs Vital signs: Vital Signs Temperature 97.7 F 11/17/24 18:18 Pulse Rate 119 H 11/17/24 18:18 Respiratory Rate 97 H 11/17/24 18:18 Blood Pressure 145/93 H 11/17/24 18:18 Pulse Oximetry 97 11/17/24 18:18 Temperature 97.7 F 11/17/24 18:18 Pulse Rate 95 11/18/24 01:25 Respiratory Rate 16 11/18/24 01:25 Blood Pressure 148/83 H 11/18/24 01:25 Pulse Oximetry 94 11/18/24 01:25 Medical Decision Making [facility] Narrative Medical decision making narrative: -Course: 64-year-old female history of chronic abdominal presenting presenting with her typical symptoms. Patient given pain medication,fluids, and antiemetics. CT showed mildly distended loops of bowel consistent with ileus versus enteritis. On re-evaluation the patient is now resting comfortably in bed. The patient is now requesting discharge. She says that she has all the medication she needs at home. Patient discharged follow-up with GI. Given return precautions. -DDX includes but is not limited to: Ileus, small-bowel obstruction, slow bowel transit, gastroparesis Vital Signs Vital Signs: Vital Signs Temperature 97.7 F 11/17/24 18:18 Pulse Rate 119 H 11/17/24 18:18 Respiratory Rate 97 H 11/17/24 18:18 Blood Pressure 145/93 H 11/17/24 18:18 Pulse Oximetry 97 11/17/24 18:18 Temperature 97.7 F 11/17/24 18:18 Pulse Rate 95 11/18/24 01:25 Respiratory Rate 16 11/18/24 01:25 Blood Pressure 148/83 H 11/18/24 01:25 Pulse Oximetry 94 11/18/24 01:25 Lab Data 11/17/24 21:51 11/17/24 21:51 Labs: Lab Results 11/17/24 11/17/24 11/18/24 Range/Units 21:51 21:54 02:17 WBC 12.0 H (4.5-10.0) K/mm3 RBC 5.45 H (4.2-5.4) M/mm3 Hgb 16.2 H (12.0-15.0) g/dL Hct 49.2 H (37.0-47.0) % MCV 90.3 (80-100) fl MCH 29.7 (26-34) pg MCHC 32.9 (32-36) g/dl RDW 14.3 (11.5-14.5) % Plt Count 297 (150-375) k/mm3 MPV 8.7 (7.4-10.4) fl Immature Gran % (Auto) 0.6 H (0-0.5) % Neut % (Auto) 93.6 H (45.5-73.1) % Lymph % (Auto) 4.6 L (18.3-44.2) % [place] % (Auto) 0.9 L (2.6-8.5) % Eos % (Auto) 0.0 (0-4.4) % Baso % (Auto) 0.3 (0.2-1.2) % Lymph # (Auto) 0.55 L (0.9-3.2) K/mm3 [place] # (Auto) 0.1 (0.1-0.6) K/mm3 Eos # (Auto) 0.0 (0-0.3) K/mm3 Baso # (Auto) 0.0 (0.0-0.1) K/mm3 Abs Immat Gran (auto) 0.07 H (0.00-0.031) K/mm3 Absolute Neuts (auto) 11.3 H (1.3-6.7) K/mm3 Absolute Nucleated RBC 0.000 (0.0-0.012) K/mm3 Nucleated RBC % 0.0 (0.0-0.2) % Atypical Lymphocytes Present Platelet Estimate Adequate (Adequate) Schistocytes None seen PT 12.9 (11.1-14.7) Seconds INR 0.9 APTT 24.0 (22.3-36.8) Seconds Sodium 135 L (137-145) mmol/L Potassium 4.9 (3.4-5.0) mmol/L Chloride 99 (98-107) mmol/L Carbon Dioxide 26 (22-30) mmol/L Anion Gap 10 (4-12) mmol/L BUN 13 (7-17) mg/dL Creatinine 0.71 (0.7-1.0) mg/dL Estim Creat Clear Calc 75 ml/min Estimated GFR > 60 (59 - ) Glucose 221 H (65-110) mg/dL Lactic Acid 2.8 H 1.7 (0.7-2.0) mmol/L Calcium 9.8 (8.4-10.2) mg/dL Magnesium 2.1 (1.6-2.3) mg/dL Total Bilirubin 1.0 (0.2-1.3) mg/dL AST 70 H (14-36) U/L ALT 70 H (6-35) U/L Alkaline Phosphatase 210 H (38-126) U/L Total Protein 8.0 (6.3-8.2) g/dL Albumin 4.2 (3.5-5.1) g/dL Lipase 65 (23-300) U/L Influenza A (RT-PCR) Negative (Negative) Influenza B (RT-PCR) Negative (Negative) RSV (RT-PCR) Negative (Negative) SARS-CoV-2 RNA (RT-PCR) Negative (Negative) Discharge Plan Discharge Clinical Impression: Abdominal pain Patient Disposition: Home, Self-Care Condition: Stable Instructions: Antibiotic Form, Abdominal Pain (ED) Additional Instructions: Please take your antiemetics as directed. Please follow-up with your GI physician for further management. If you develop severe abdominal pain or intractable nausea vomiting please return to the ED for re-evaluation. Patient Language: Chinese Prescriptions: No Action albuterol sulfate 90 mcg/actuation HFA aerosol inhaler 1 inh inhalation Q4-6H PRN (Reason: shortness of breath or wheezing) Qty: 8.5 1RF duloxetine 60 mg capsule,delayed release(DR/EC) 60 mg PO BID Qty: 60 11RF omeprazole 40 mg capsule,delayed release(DR/EC) 40 mg PO DAILY 30 Days Qty: 30 3RF metoclopramide HCl [Reglan] 10 mg tablet 10 mg PO Q6H PRN (Reason: nausea and vomiting) Qty: 30 0RF ondansetron 4 mg tablet,disintegrating 4 mg PO Q6H PRN (Reason: nausea and vomiting) Qty: 60 0RF lidocaine HCl [Aspercreme (lidocaine HCl)] 4 % Liquid Roll-On 1 ea TOPICAL PRN PRN (Reason: Pain) prednisone 20 mg Tablet 40 mg PO DAILY Qty: 60 1RF simethicone 80 mg tablet,chewable 80 mg PO QID PRN (Reason: Gastric Reflux) Qty: 30 0RF cholestyramine (with sugar) 4 gram Powder In Packet 1 ea PO BID@1000,1800 Qty: 30 0RF prednisone 20 mg tablet 40 mg PO DAILY Qty: 30 4RF prochlorperazine maleate [Compazine] 10 mg tablet 10 mg PO Q8H PRN (Reason: Nausea And Vomiting) Qty: 30 0RF Follow-up/Referrals: Brooklynn Pennington, RELIEF MASTER [Primary Care Provider] -
== END 2024-11-18 02:50 | disposition home or self-care (01) ==
PROVIDERS: Emergency Provider Emergency Medicine; PCP Nurse Practitioner Family
DX: R10.33 Periumbilical pain (principal); Z20.822 Contact with and (suspected) exposure to COVID-19; I10 Essential (primary) hypertension; E55.9 Vitamin D deficiency, unspecified; E78.5 Hyperlipidemia, unspecified; E66.9 Obesity, unspecified; Z68.38 Body mass index [BMI] 38.0-38.9, adult; M85.80 Other specified disorders of bone density and structure, unspecified site; M19.90 Unspecified osteoarthritis, unspecified site; G47.33 Obstructive sleep apnea (adult) (pediatric); K50.90 Crohn's disease, unspecified, without complications; Z98.1 Arthrodesis status; Z87.442 Personal history of urinary calculi; Z87.891 Personal history of nicotine dependence; Z90.49 Acquired absence of other specified parts of digestive tract; R00.0 Tachycardia, unspecified; I51.7 Cardiomegaly
CPT/HCPCS: 36415; 71045; 74177; 80053; 83605; 83690; 83735; 85025; 85610; 85730; 87637; 93005; 96361; 96372; 96374; 96375; 99284; J0780; J1200; J2270; J2405; J7030; Q9967

== ENCOUNTER 2024-12-07 23:27 | Emergency (ER) | payer MEDICARE, MEDICAID, SELFPAY ==
--- NOTE | ~2024-12-07 | CT_ITS ---
EXAMINATION: CTA chest PE abdomen pel DATE: 12/08/2024 03:08 INDICATION: Chest pain. Abdominal pain. TECHNIQUE: Computed tomography angiography (CTA) of the chest was performed with 100 mL Omnipaque-350 intravenous contrast timed to evaluate the pulmonary arteries. Coronal maximum intensity projection 3D-reconstructions were created by the technologist. Computed tomography (CT) of the abdomen and pelv is was performed with intravenous contrast. Automated exposure control and iterative reconstruction t echnique were employed. The dose-length product was 1706.09 mGy-cm. COMPARISON: CT abdomen and pelvis 11/17/2024 FINDINGS: CTA chest: The lungs demonstrate minimal atelectasis. No pleural effusion. Calcified right lung nodul es and calcified right hilar lymph nodes are consistent with old granulomatous disease. The thyroid i s enlarged with nodules measuring up to 3.4 cm. The heart size is normal. There are coronary artery c alcifications. No pericardial effusion. There is no pulmonary embolus. There are bridging endplate os teophytes at multiple levels in the spine, consistent with diffuse idiopathic skeletal hyperostosis ( DISH). CT abdomen and pelvis: There is diffuse hepatic steatosis. The gallbladder is normal. Calcifications in the spleen are consistent with old granulomatous disease. The pancreas, adrenal glands, and kidney s are normal. There are no dilated loops of bowel. There is an ileocolic anastomosis. There are villanueva es of cholecystectomy. There are no pathologically enlarged lymph nodes. There is no free intraperito aureliano fluid. There is mild lumbar spondylosis. IMPRESSION: 1. No pulmonary embolus. 2. Diffuse hepatic steatosis. 3. Multinodular goiter. Consider thyroid ultrasound for risk stratification. Reviewed, dictated and finalized at location A. IPLE NEEDLE STITCHER
[2024-12-07 23:29] VITALS: BP 153/90; PULSE 105; RESP 20; TEMP 36.5; O2SAT 98
--- OUTSIDE RECORDS SUMMARY | 2024-12-07 23:29 | XMS_ITS | Clinical Summary ---
Author Organization [facility] Address [address] [place] [address] Care Team Providers Care Stamp Presser Name Role Phone Brooklynn Pennington Primary Care Provider [phone] Allergies Active Allergy Reactions Criticality Noted Date [...] Problem Noted Date Diagnosed Date Sepsis ([facility]/HCC [facility]/HCC) 11/18/2023 Family History Medical History Relation Comments [...] pure alcohol) occational daniele 2 months-1 drink [facility] Utilities Answer Date Recorded In the past 12 months has th e [employer], gas, oil, or water company threatened to [...] How often do you attend chur or protestant services? Never 11/18/2023 Do you belong to any clubs o r organizations such as restorationist groups, unions, fraternal or athletic groups, or [...] place to sleep or slept in a chcf (including now)? 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
--- NOTE | 2024-12-07 23:34 | ECG_ITS ---
Test Date: 2024-12-07 23:38:38 Measurements Intervals [place] Rate: 119 P: 51 NE: 128 QRS: -4 QRSD: 78 T: 24 QT: 315 QTc: 445 Interpretive Statements SINUS TACHYCARDIA MODERATE VOLTAGE CRITERIA FOR LVH, CONSIDER NORMAL VARIANT [MEETS CRITERIA IN ONE OF: R(aVL), S(V1), R(V5), R(V5/V6)+S(V1)] ABNORMAL RHYTHM ECG Compared to ECG 11/17/2024 18:23:20 NO SIGNIFICANT CHANGE Electronically Signed On 12-08-2024 15:49:59 PHYSICAL THERAPY DIRECTOR by Sang Do M.D.
[2024-12-07 23:50] LABS: Basophils Percent Auto 0.3 % (0.2-1.2); Hematocrit 46.6 % (37.0-47.0); Hemoglobin 15.6 g/dL (12.0-15.0); Immature Granulocyte Absolute 0.08 K/mm3 (0.00-0.031); Immature Granulocyte Percent A 0.7 % (0-0.5); Lymphocytes Absolute Auto 1.19 K/mm3 (0.9-3.2); Mean Corpuscular HGB Conc 33.5 g/dl (32-36); Mean Corpuscular Hemoglobin 29.7 pg (26-34); Mean Corpuscular Volume 88.8 fl (80-100); Mean Platelet Volume 8.5 fl (7.4-10.4); Monocytes Absolute Auto 0.5 K/mm3 (0.1-0.6); Neutrophils Absolute Auto 10.1 K/mm3 (1.3-6.7); Platelet Count Result 343 k/mm3 (150-375); Red Blood Count 5.25 M/mm3 (4.2-5.4); Red Cell Distribution Width 14.4 % (11.5-14.5); White Blood Count 11.9 K/mm3 (4.5-10.0)
[2024-12-08 00:07] LABS: Alanine Aminotransferase 47 U/L (6-35); Albumin Level 4.1 g/dL (3.5-5.1); Alkaline Phosphatase 155 U/L (38-126); Anion Gap 15 mmol/L (4-12); Aspartate Amino Transferase 36 U/L (14-36); Bilirubin,Total 0.5 mg/dL (0.2-1.3); Blood Urea Nitrogen 11 mg/dL (7-17); Calcium 9.6 mg/dL (8.4-10.2); Carbon Dioxide 24 mmol/L (22-30); Chloride 99 mmol/L (98-107); Estimated CRCL calculation 78 ml/min; Estimated Glomerular Filt Rate > 60; Glucose 257 mg/dL (65-110); Lipase 100 U/L (23-300); Sodium 138 mmol/L (137-145)
[2024-12-08 01:38] LABS: Add Urine Microscopic? YES; Appearance Urine Cloudy (Clear); Bacteria Urine 1+ /hpf; Bilirubin Urine Negative (Negative); Blood Urine Negative (Negative); Color Urine Yellow (Yellow); Glucose Urine UA 3+ mg/dL (Negative); Ketones Urine 1+ mg/dL (Negative); Leukocyte Esterase Ur Negative LEU/UL (Negative); Nitrate Urine Negative (Negative); Non Pathogenic Casts 0-2; Protein Urine Trace mg/dL (Negative); RBC Urine 0-2 /hpf (0-2); Specific Grav Ur 1.036 (1.001-1.035); Squamous Epithelial Cell Urine Occasional /hpf (Few); Urobilinogen Urine 0.2 mg/dL (<2.0); WBC Urine 0-5 /hpf (0-3); pH Urine 6.5 (5.0-9.0)
[2024-12-08 02:41] LABS: Troponin I 0.017 ng/mL (0.000-0.034)
[2024-12-08 02:53] LABS: Troponin I 0.019 ng/mL (0.000-0.034)
[2024-12-08 03:04] VITALS: BP 147/84; PULSE 100; RESP 19; O2SAT 99
[2024-12-08] MEDS: PROCHLORPERAZINE EDISYLATE 10 MG/2 ML VIAL IV PUSH (04:13)
[2024-12-08] MEDS: SODIUM CHLORIDE 0.9% IV 1,000 ML 999 ML IV CONT (04:13)
[2024-12-08] MEDS: diphenhydrAMINE HCl INJ 50 MG/ML VIAL IV PUSH (04:15)
--- OUTSIDE RECORDS SUMMARY | 2024-12-08 04:17 | XMS_ITS | Clinical Summary ---
Author Organization [facility] Address [address] [place] [id number] Care Team Providers Care Packaging Tech Name Role Phone Brooklynn Pennington Primary Care Provider [phone] Allergies Active Allergy Reactions Criticality Noted Date [...] Problems Problem Noted Date Diagnosed Date Sepsis ([facility]/HCC [facility]/HCC) 11/18/2023 Family History Medical History Relation Comments [...] pure alcohol) occational daniele 2 months-1 drink [facility] Utilities Answer Date Recorded In the past 12 months has th e [employer], gas, oil, or water company threatened to [...] How often do you attend chur or alevism services? Never 11/18/2023 Do you belong to any clubs o r organizations such as religion groups, unions, fraternal or athletic groups, or [...] place to sleep or slept in a mcfp (including now)? 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
[2024-12-08] MEDS: MORPHINE SULFATE (*CRX) 4 MG/ML INJ IV PUSH (04:18)
--- NOTE | 2024-12-08 04:33 | ED.GENADULT ---
HPI - General Adult General Chief complaint: Nausea/Vomiting/Diarrhea Stated complaint: nausea/vomiting/abdominal pain Time Seen by Provider: 12/08/24 03:47 History of Present Illness HPI narrative: Patient is a 64-year-old female who presents emergency department with chief complaint of abdominal pain nausea vomiting patient reports that she also had pain going up into left side of her chest patient reports she has history of a bowel obstruction and also issues with her mesh status post hernia repair patient states that she has had issues with chronic abdominal pain and nausea vomiting and reports that she has attempted her medications at home without success. Related Data Home Medications ?Medication ?Instructions ?Recorded ?Confirmed ?Last Taken ?Type lidocaine HCl 4 % topical liquid 1 ea topical PRN PRN Pain 06/23/24 11/12/24 Unknown History roll-on (Aspercreme (lidocaine HCl)) Allergies Allergy/AdvReac Type Severity Reaction Status Date / Time cyclobenzaprine Allergy Mild HYPERACTIVI Verified 12/07/24 23:28 TY infliximab (From Remicade) Allergy Mild Hives Verified 12/07/24 23:28 latex Allergy Mild Rash Verified 12/07/24 23:28 lisinopril Allergy Mild cough Verified 12/07/24 23:28 contact metal agent Allergy Hives Verified 12/07/24 23:28 hydrocodone AdvReac Mild N/V Verified 12/07/24 23:28 clindamycin AdvReac Unknown other Verified 12/07/24 23:28 hydromorphone (From Dilaudid) AdvReac Vomiting Verified 12/07/24 23:28 oxycodone AdvReac Nausea and Verified 12/07/24 23:28 Vomiting palm oil Allergy Intermediate Hives Uncoded 12/07/24 23:28 COCONUT Allergy Mild Hives / Uncoded 12/07/24 23:28 Red Face Delodium AdvReac Mild Vomiting Uncoded 12/07/24 23:28 Review of Systems Review of Systems: A 10 system review of systems was completed on the patient and is negative except for what is stated in the HPI. Nursing and ancillary documentation was reviewed. [facility] Past Medical History Medical History Vitamin D deficiency Depression Kidney stones Crohn's disease C. difficile colitis (11/2023) Osteopenia Cellulitis Yeast infection Allergies Obstructive sleep apnea not on CPAP Hypertension not currently on medication Inflammatory arthritis Hyperlipidemia Obesity Postmenopausal Arthritis Tobacco abuse Incisional hernia without obstruction or gangrene Umbilical hernia Degenerative joint disease Surgical History Surgical History History of ankle surgery ORIF right ankle fracture History of fusion of cervical spine History of hernia repair History of tubal ligation History of right hemicolectomy (2019) History of colonoscopy Family History Family History Father Diabetes mellitus Malignant neoplasm of prostate Hypertension Family history of diabetes mellitus in first degree relative Family history of malignant neoplasm of urinary bladder Family history of heart disease in male family member before age 55 Mother Diabetes mellitus Family history of kidney disease Patient's mother is Other Family history of cardiovascular disease Social History Social History Social History: Surrogate medical decision maker: Reynold Filemon, spouse. Code status: Full code. Smoking packs per day: 0.5 Smoking cigarettes per day: 10.0 Years smoked: 50 Smoking pack-years: 25.00 Smoking status: Former smoker Second hand tobacco smoke exposure: No Alcohol intake: current Drinks per week: 1 Substance use: never Substance use type: does not use Do You Feel Safe in your Home?: Yes Lack of Transportation: No Lack of Food: Never True Current Housing: I Have Housing Concerned About Future Housing: No Difficulty Paying Gas/Electric Bills: No Difficulty Paying for Meds: No Currently Unemployed: No Education: Decline to Answer Difficulty w/ Childcare or Family Care: No Living arrangements: with family Occupation/Education: retired Spiritual care concerns: No Agree to blood products: Yes Exam Narrative: GENERAL: Well-appearing, well-nourished, and in no acute distress. HEAD: Normocephalic, atraumatic. EYES: PERRLA and EOMI. ENT: Nares clear, no rhinorrhea or epistaxis. Mucous membranes moist. NECK: Supple. CHEST: Clear to auscultation. No respiratory distress. HEART: Regular rate and rhythm. No murmur heard. Normal peripheral pulses. ABDOMEN: Soft, mild tenderness to palpation, nondistended, normal active bowel sounds. EXTREMITIES: Normal range of motion. No edema. SKIN: Warm, dry, no rash. NEURO: No focal deficits. Alert and oriented x3. PSYCH: Normal mood and affect. Course Vital Signs Vital signs: Vital Signs Temperature 36.5 C 12/07/24 23:29 Pulse Rate 105 H 12/07/24 23:29 Respiratory Rate 20 12/07/24 23:29 Blood Pressure 153/90 H 12/07/24 23:29 Pulse Oximetry 98 12/07/24 23:29 Oxygen Delivery Room Air 12/07/24 23:29 Temperature 36.5 C 12/07/24 23:29 Pulse Rate 100 12/08/24 03:04 Respiratory Rate 19 12/08/24 03:04 Blood Pressure 147/84 H 12/08/24 03:04 Pulse Oximetry 99 12/08/24 03:04 Oxygen Delivery Room Air 12/07/24 23:29 Medical Decision Making MDM Narrative Medical decision making narrative: Differential diagnosis includes pulmonary embolism, small-bowel obstruction, intra-abdominal infection, bowel perforation Laboratory studies were obtained on the patient showed a CBC with a white count of 11.9 electrolytes showed no significant abnormality other than glucose of 257 troponin was 0 hours 3 hour Urinalysis shows specific gravity 1.036. The patient received IV fluids antiemetics and pain control in the patient is feeling much better CTA chest with abdomen pelvis showed no evidence of pulmonary embolism and no evidence of small-bowel obstruction. Vital Signs Vital Signs: Vital Signs Temperature 36.5 C 12/07/24 23:29 Pulse Rate 105 H 12/07/24 23:29 Respiratory Rate 20 12/07/24 23:29 Blood Pressure 153/90 H 12/07/24 23:29 Pulse Oximetry 98 12/07/24 23:29 Oxygen Delivery Room Air 12/07/24 23:29 Temperature 36.5 C 12/07/24 23:29 Pulse Rate 100 12/08/24 03:04 Respiratory Rate 19 12/08/24 03:04 Blood Pressure 147/84 H 12/08/24 03:04 Pulse Oximetry 99 12/08/24 03:04 Oxygen Delivery Room Air 12/07/24 23:29 Lab Data 12/07/24 23:44 12/07/24 23:44 Labs: Lab Results 12/07/24 12/08/24 12/08/24 Range/Units 23:44 00:38 02:27 WBC 11.9 H (4.5-10.0) K/mm3 RBC 5.25 (4.2-5.4) M/mm3 Hgb 15.6 H (12.0-15.0) g/dL Hct 46.6 (37.0-47.0) % MCV 88.8 (80-100) fl MCH 29.7 (26-34) pg MCHC 33.5 (32-36) g/dl RDW 14.4 (11.5-14.5) % Plt Count 343 (150-375) k/mm3 MPV 8.5 (7.4-10.4) fl Immature Gran % (Auto) 0.7 H (0-0.5) % Neut % (Auto) 85.0 H (45.5-73.1) % Lymph % (Auto) 10.0 L (18.3-44.2) % [place] % (Auto) 4.0 (2.6-8.5) % Eos % (Auto) 0.0 (0-4.4) % Baso % (Auto) 0.3 (0.2-1.2) % Lymph # (Auto) 1.19 (0.9-3.2) K/mm3 [place] # (Auto) 0.5 (0.1-0.6) K/mm3 Eos # (Auto) 0.0 (0-0.3) K/mm3 Baso # (Auto) 0.0 (0.0-0.1) K/mm3 Abs Immat Gran (auto) 0.08 H (0.00-0.031) K/mm3 Absolute Neuts (auto) 10.1 H (1.3-6.7) K/mm3 Absolute Nucleated RBC 0.000 (0.0-0.012) K/mm3 Nucleated RBC % 0.0 (0.0-0.2) % Sodium 138 (137-145) mmol/L Potassium 4.0 (3.4-5.0) mmol/L Chloride 99 (98-107) mmol/L Carbon Dioxide 24 (22-30) mmol/L Anion Gap 15 H (4-12) mmol/L BUN 11 (7-17) mg/dL Creatinine 0.68 L (0.7-1.0) mg/dL Estim Creat Clear Calc 78 ml/min Estimated GFR > 60 (59 - ) Glucose 257 H (65-110) mg/dL Calcium 9.6 (8.4-10.2) mg/dL Total Bilirubin 0.5 (0.2-1.3) mg/dL AST 36 (14-36) U/L ALT 47 H (6-35) U/L Alkaline Phosphatase 155 H (38-126) U/L Troponin I 0.017 0.019 (0.000-0.034) ng/mL Total Protein 7.0 (6.3-8.2) g/dL Albumin 4.1 (3.5-5.1) g/dL Lipase 100 (23-300) U/L Urine Color Yellow (Yellow) Urine Appearance Cloudy H (Clear) Urine pH 6.5 (5.0-9.0) Ur Specific [place] 1.036 H (1.001-1.035) Urine Protein Trace (Negative) mg/dL Urine Glucose (UA) 3+ H (Negative) mg/dL Urine Ketones 1+ H (Negative) mg/dL Ur Blood (Man) Negative (Negative) Urine Nitrate Negative (Negative) Urine Bilirubin Negative (Negative) Urine Urobilinogen 0.2 (<2.0) mg/dL Leukocyte Esterase Rfl Negative (Negative) PERLA/UL Urine RBC 0-2 (0-2) /hpf Urine WBC 0-5 (0-3) /hpf Ur Squamous Epith Cells Occasional (Few) /hpf Urine Bacteria 1+ H /hpf Urine Casts 0-2 Discharge Plan Discharge Clinical Impression: Abdominal pain, Nausea and vomiting Patient Disposition: Home, Self-Care Condition: Stable Instructions: Antibiotic Form, Acute Nausea and Vomiting (ED), Abdominal Pain (ED) Patient Language: Persian Prescriptions: No Action albuterol sulfate 90 mcg/actuation HFA aerosol inhaler 1 inh inhalation Q4-6H PRN (Reason: shortness of breath or wheezing) Qty: 8.5 1RF duloxetine 60 mg capsule,delayed release(DR/EC) 60 mg PO BID Qty: 60 11RF omeprazole 40 mg capsule,delayed release(DR/EC) 40 mg PO DAILY 30 Days Qty: 30 3RF metoclopramide HCl [Reglan] 10 mg tablet 10 mg PO Q6H PRN (Reason: nausea and vomiting) Qty: 30 0RF ondansetron 4 mg tablet,disintegrating 4 mg PO Q6H PRN (Reason: nausea and vomiting) Qty: 60 0RF lidocaine HCl [Aspercreme (lidocaine HCl)] 4 % Liquid Roll-On 1 ea TOPICAL PRN PRN (Reason: Pain) prednisone 20 mg Tablet 40 mg PO DAILY Qty: 60 1RF simethicone 80 mg tablet,chewable 80 mg PO QID PRN (Reason: Gastric Reflux) Qty: 30 0RF cholestyramine (with sugar) 4 gram Powder In Packet 1 ea PO BID@1000,1800 Qty: 30 0RF prednisone 20 mg tablet 40 mg PO DAILY Qty: 30 4RF prochlorperazine maleate [Compazine] 10 mg tablet 10 mg PO Q8H PRN (Reason: Nausea And Vomiting) Qty: 30 0RF Follow-up/Referrals: Brooklynn Pennington NP [Primary Care Provider] - Time of Disposition: 04:36
[2024-12-08 05:02] VITALS: BP 139/81; PULSE 91; RESP 17; O2SAT 98
[2024-12-08 07:00] VITALS: BP 143/89; PULSE 88; RESP 19; O2SAT 100
[2024-12-08 07:01] VITALS: BP 143/89; PULSE 88; RESP 19; O2SAT 100
== END 2024-12-08 07:02 | disposition home or self-care (01) ==
PROVIDERS: Emergency Provider Emergency Medicine; PCP Nurse Practitioner Family
DX: R11.2 Nausea with vomiting, unspecified (principal); R10.9 Unspecified abdominal pain; I10 Essential (primary) hypertension; E55.9 Vitamin D deficiency, unspecified; E78.5 Hyperlipidemia, unspecified; G47.33 Obstructive sleep apnea (adult) (pediatric); M85.80 Other specified disorders of bone density and structure, unspecified site; M19.90 Unspecified osteoarthritis, unspecified site; F32.A Depression, unspecified; Z98.1 Arthrodesis status; Z87.442 Personal history of urinary calculi; Z87.891 Personal history of nicotine dependence; Z90.49 Acquired absence of other specified parts of digestive tract; Z79.899 Other long term (current) drug therapy; R00.0 Tachycardia, unspecified
CPT/HCPCS: 36415; 71275; 74177; 80053; 81001; 83690; 84484; 85025; 93005; 96361; 96374; 96375; 99284; J0780; J1200; J2270; J7030; Q9967

== ENCOUNTER 2024-12-11 08:10 | Outpatient (CLI) | payer MEDICARE, MEDICAID, SELFPAY ==
--- NOTE | ~2024-12-11 | NM_ITS ---
EXAM: NM gastric emptying study DATE: 12/11/2024 12:59 INDICATION: Nausea with vomiting, unspecified. TECHNIQUE: A gastric emptying study was performed using the methodology of Sunday BAIN, et al. J Nucl Med 2007; 48:568-572. The patient was given a meal consisting of 2 scrambled eggs labeled with 1 mCi Tc-99m sulfur colloid, 2 slices of toast, two packages of jam, and approximately 120 mL of water. Si multaneous anterior and posterior 1-min images of the abdomen were obtained with the patient supine a t multiple time points over a total period of 4 hours. The geometric mean of anterior and posterior v iews was determined, and the percentage retention was calculated for each time point. COMPARISON: CT 12/08/2024 FINDINGS: Gastric retention of the radiotracer-labeled meal was 44%, 19%, and 2% at the 1-hour, 2-ho ur, and 4-hour time points, respectively. With this technique, apparent rapid gastric emptying is sug gested by <30% gastric retention at 1 hour. Delayed gastric emptying is defined by gastric retention of >90% at 1 hour, >60% retention at 2 hours, or >10% retention at 4 hours. IMPRESSION: 1. Normal gastric emptying. Reviewed, dictated and finalized at location B. IMPRESSION: 1. Normal gastric emptying.
--- OUTSIDE RECORDS SUMMARY | 2024-12-11 08:20 | XMS_ITS | Clinical Summary ---
Author Organization [facility] Address [address] [place] [id number] Care Team Providers Care [employer] Producer Name Role Phone Brooklynn Pennington Primary Care Provider [phone] Allergies Active Allergy Reactions Criticality Noted Date [...] Problems Problem Noted Date Diagnosed Date Sepsis ([facility]/HCC [facility]/HCC) 11/18/2023 Family [...] pure alcohol) occational daniele 2 months-1 drink [facility] Utilities Answer Date Recorded In the past 12 months has th e Locately, gas, oil, or water company threatened to [...] any clubs o r organizations such as protestant groups, unions, fraternal or athletic groups, or [...] on file 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
== END 2024-12-11 08:11 | disposition home or self-care (01) ==
PROVIDERS: PCP Nurse Practitioner Family; Visit Provider Nurse Practitioner Family
DX: R11.2 Nausea with vomiting, unspecified (principal); R10.9 Unspecified abdominal pain
CPT/HCPCS: 78264; A9541

== ENCOUNTER 2025-01-02 15:25 | Emergency (ER) | payer MEDICARE, MEDICAID, SELFPAY ==
--- NOTE | ~2025-01-02 | CT_ITS ---
CLINICAL INDICATION: Fall onto right shoulder with acute fracture of the right humeral neck. Rule out dislocation? COMPARISON: Reference is made to a plain film evaluation of the right shoulder demonstrating an acute fracture of the right humeral neck with dislocation suspected. TECHNIQUE: Computed tomography (CT) of the right shoulder was performed without intravenous contrast. The dose-length product was 431.79 mGy-cm. FINDINGS/OBSERVATIONS: Redemonstration of a comminuted fracture of the right humeral neck with posterior and caudal dislocat ion of the humeral head in relation to the glenoid fossa. The acromioclavicular joint space is intact. Significant soft tissue swelling within the surrounding musculature. IMPRESSION: Comminuted fracture of the right humeral neck with posterior and caudal dislocation of the humeral he ad in relation to the glenoid fossa. Reviewed, dictated and finalized at location A. IMPRESSION: Comminuted fracture of the right humeral neck with posterior and caudal disloca tion of the humeral head in relation to the glenoid fossa.
--- NOTE | ~2025-01-02 | XR_ITS ---
HISTORY: FALL COMPARISON: None TECHNIQUE: 2 views of the right shoulder were performed FINDINGS: Acute fracture of the right humeral neck is identified. This fracture is comminuted and impacted. Inferior and slightly medial placement of the right humeral head is present, suggesting additional dislocation. IMPRESSION: Comminuted and slightly impacted right humeral neck fracture with dislocation of the hu meral head suspected. Reviewed, dictated and finalized at location A. IMPRESSION: Comminuted and slightly impacted right humeral neck fracture with dislocation of the humeral head suspected.
[2025-01-02 15:33] VITALS: BP 186/91; PULSE 126; RESP 20; TEMP 37.1; O2SAT 95
--- OUTSIDE RECORDS SUMMARY | 2025-01-02 16:34 | XMS_ITS | Clinical Summary ---
Author Organization [facility] Address [address] [place] [id number] Care Team Providers Care Experimental Electronics Developer Name Role Phone Brooklynn Pennington Primary Care Provider [phone] Allergies Active Allergy Reactions Criticality Noted Date [...] by mouth daily. 30 tablet 4 Active oxyCODONE-acetamin ophen (PERCOCET) 5-325 MG tabletIndications: Acute Pain < 7 Day Supply Take 1 tablet by mouth every 4 (four) hours as needed for Pain. Indications: Acute Pain < 7 Day Supply 21 tablet 5 Active ondansetron (ZOFRAN-ODT) 4 MG disintegrating tablet Take 1 tablet (4 mg total) by mouth every 8 (eight) hours as needed for Nausea. 20 tablet Active Active Problems Problem Noted Date Diagnosed Date Sepsis ([facility]) 11/18/2023 Encounters Date Type Department Care Team Description 12/31/2024 9:57 AM CDT - 12/31/2024 1:06 PM CDT Emergency [facility] Emergency Room [address] [place] [address] Zhanna Carpenter MD Arm Injury Discharge Disposition: Home or Self Care (Routine Discharge) 12/31/2024 Travel from Last 3 Months Family History Medical History Relation Comments Cancer [...] occational daniele 2 months-1 drink [facility] Utilities Answer Date Recorded In the past 12 months has [facility] electric, gas, oil, or water company threatened to [...] 11/18/2023 How often do you attend chur ch or mormonism services? Never 11/18/2023 Do you belong to any clubs o r organizations such as latter-day groups, unions, fraternal or athletic groups, or [...] place to sleep or slept in a longterm (including now)? 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 Gender Identity Not on file Sexual Orientation Not on file Last Filed Vital Signs Vital Sign Reading Time Taken Comments Blood Pressure 130/66 12/31/2024 12:42 PM CDT Pulse 60 12/31/2024 12:42 PM CDT Temperature 36.7 C (98 F) 12/31/2024 12:42 PM CDT Respiratory Rate 18 12/31/2024 12:42 PM CDT Oxygen Saturation 97% 12/31/2024 12:42 PM CDT Inhaled Oxygen Concentration - - Weight 96.2 kg (212 lb) 12/31/2024 10:03 AM CDT Height 157.5 cm (5' 2 ) 12/31/2024 10:03 AM CDT Body Mass Index 38.78 12/31/2024 10:03 AM CDT Plan of Treatment Health Maintenance Due [...] wi th HPV 1991 Mammogram Screening 2001 Zoster Vaccines (1 of 2) 2011 COVID-19 Vaccine (4 - 2023-2 5 season) 2024 07/10/2021, 10/11/2020, 09/20/2020 DTaP, Tdap and Td Vaccines ( 2 - Td or Tdap) 10/13/2025 10/13/2015 Lung Cancer Screening 12/31/2025 12/31/2024 RSV Immunization or 60+ Years (1 - 1-dose 75+ series) 2036 Meningococcal B Vaccine Aged Out No l onger eligible based on patient's age to complete this topic Meningococcal Vaccine Aged Out No sue arnoldo eligible based on patient's age to complete this topic RSV Immunizations Under 20 Months Aged Out No longer eligible b ased on patient's age to complete this topic Procedures Procedure Name Priority Date/Time Associated Diagnosis Comments XR HUMERUS RT MIN 2V STAT 12/31/2024 11:[address] CERV SPINE WO CON STAT 12/31/2024 11:[address] SCAPULA RT WO CON STAT 12/31/2024 11:[address] CHEST WO CON STAT 12/31/2024 11:07 AM CDT from Last 3 Months Results * XR HUMERUS RT MIN 2V (12/31/2024 11:19 AM CDT) Anatomical Region Laterality Modality Humerus Radiographic Keeley ging 12/31/2024 11:2 7 AM CDT Impressions 12/31/2024 11:28 AM CDT IMPRESSION: Comminuted fracture of the proximal humerus. Ordered By: ZHANNA CARPENTER Interpreted By: Adrian Palencia MD, 12/31/2024 11:27 AM Narrative 12/31/2024 11:28 AM CDT [place] [address] [address] [facility] [place] [address] Procedure(s): XR HUMERUS RT MIN 2V Date of service: 12/31/2024 10:58 AM Provided clinical information: 64 years, Female, fall rule out deformity fall on the arm. Procedure and materials: 2 views of the humerus are obtained. Comparison studies: None. Findings: Examination of the humerus is limited by patient body habitus and patient positioning. There is diminished penetration is present proximally. There is a comminuted fracture of the proximal humerus that is present. Marked fracture diastases is present. Soft tissue swelling and joint effusion is suspected. Procedure Note Adrian Palencia MD - 12/31/[address] [place] [address] Procedure(s): XR HUMERUS RT MIN 2V Date of service: 12/31/2024 10:58 AM Provided clinical information: 64 years, Female, fall rule out deformity fall on the arm. Procedure and materials: 2 views of the humerus are obtained. Comparison studies: None. Findings: Examination of the humerus is limited by patient body habitus and patientpositioning. There is diminished penetration is present proximally. There is a comminuted fracture of the proximal humerus that is present.Marked fracture diastases is present. Soft tissue swelling and jointeffusion is suspected. IMPRESSION: Comminuted fracture of the proximal humerus. Ordered By: ZHANNA CARPENTER Interpreted By: Adrian Palencia MD, 12/31/2024 11:27 AM Zhanna Carpenter MD GENERAL IMAGING Final Result * CT SCAPULA RT WO CON (12/31/2024 11:07 AM CDT) Anatomical Region Laterality Modality Forearm Computed Tomogra phy 12/31/2024 11:3 9 AM CDT Impressions 12/31/2024 11:43 AM CDT IMPRESSION: Comminuted impacted fracture of the proximal humerus is present. There is a joint effusion that is present. Ordered By: ZHANNA CARPENTER Interpreted By: Adrian Palencia MD, 12/31/2024 11:39 AM Narrative 12/31/2024 11:43 AM CDT [facility] [address] [place] [address] Procedure(s): CT SCAPULA RT WO CON Date of service: 12/31/2024 10:46 AM Provided clinical information: 64 years, Female, fall backwards Procedure and materials: Helical images of the right scapula is performed. Coronal and sagittal reconstructions are obtained. A dose lowering technique was used for this procedure, which may include, but is not limited to, dose reduction technique, automated exposure control, iterative reconstruction, ALARA (As Low As Reasonably Achievable), or Image Gently techniques. Comparison studies: Right humerus December 31, 2024. Findings: There is a comminuted impacted fracture of the proximal humerus. The humeral head is rotated. No definite evidence of dislocation is present. There is an anteriorly hooked acromion. Inferior AC joint osteophytes are present. Laterally downsloping acromion. These factors may predispose to the clinical syndrome of impingement. There is a joint effusion that is present. The scapula is intact without evidence of fracture. Postsurgical changes in the cervical spine CT to 3 and C3-4. Axilla is unremarkable. No definite evidence of displaced fracture of the glenoid. Procedure Note Adrian Palencia MD - 12/31/2024 [facility] [address] [place] [address] Procedure(s): CT SCAPULA RT WO CON Date of service: 12/31/2024 10:46 AM Provided clinical information: 64 years, Female, fall backwards Procedure and materials: Helical images of the right scapula is performed.Coronal and sagittal reconstructions are obtained. A dose lowering technique was used for this procedure, which may include,but is not limited to, dose reduction technique, automated exposurecontrol, iterative reconstruction, ALARA (As Low As ReasonablyAchievable), or Image Gently techniques. Comparison studies: Right humerus December 31, 2024. Findings: There is a comminuted impacted fracture of the proximal humerus. Thehumeral head is rotated. No definite evidence of dislocation is present. There is an anteriorly hooked acromion. Inferior AC joint osteophytes arepresent. Laterally downsloping acromion. These factors may predispose tothe clinical syndrome of impingement. There is a joint effusion that ispresent. The scapula is intact without evidence of fracture. Postsurgical changes in the cervical spine CT to 3 and C3-4. Axilla isunremarkable. No definite evidence of displaced fracture of the glenoid. IMPRESSION: Comminuted impacted fracture of the proximal humerus is present. There shannan joint effusion that is present. Ordered By: ZHANNA CARPENTER Interpreted By: Adrian Palencia MD, 12/31/2024 11:39 AM us Zhanna Carpenter MD CT Final Result * CT CHEST WO CON (12/31/2024 11:07 AM CDT) Anatomical Region Laterality Modality Chest Computed Tomogra phy 12/31/2024 11:3 0 AM CDT Impressions 12/31/2024 11:36 AM CDT IMPRESSION: Ground glass opacifications are present in left lung. This may relate to infectious change. Neoplasm can have this appearance. This measures 1.2 cm in AP dimension. Follow-up in 3 months recommended. Comminuted fracture proximal right humerus. Monique graph left thyroid nodule measuring 9 mm with coarse calcification. Elective thyroid ultrasound. 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 Ordered By: ZHANNA CARPENTER Interpreted By: Adrian Palencia MD, 12/31/2024 11:30 AM Narrative 12/31/2024 11:36 AM CDT [facility] [address] [facility] [place] [address] Procedure(s): CT CHEST WO CON Date of service: 12/31/2024 10:46 AM Provided clinical information: 64 years, Female, fell backwards hit scapula and upper back Procedure and materials: Helical images of the chest are obtained from superior to the thoracic inlet to inferior to the costophrenic angles. Examination performed without intravenous contrast. A dose lowering technique was used for this procedure, which may include, but is not limited to, dose reduction technique, automated exposure control, iterative reconstruction, ALARA (As Low As Reasonably Achievable), or Image Gently techniques. Comparison studies: None. Findings: Axillae: No enlarged axillary lymph nodes. Comminuted fracture of the proximal right humerus. Mediastinum/Pat:No cardiomegaly. No enlarged mediastinal or hilar lymph nodes. There may be a variant vascular variation with some vessels arising from the left subclavian artery extending to the cervical region. These may be thyroidal or branches of the thyrocervical trunk. 9 mm left thyroid nodule is present with coarse calcifications. Elective thyroid ultrasound recommended. Lung Parenchyma:Scarring in the right middle lobe. No effusions. No consolidations. Scattered groundglass opacifications are present in the left upper lobe. One measures approximately 1.2 cm in AP dimension These may be postinfectious in etiology. Clinical correlation recommended. Follow-up in 3 months is recommended to ensure resolution. Visualized Upper abdominal structures:Splenic calcifications are present due to prior granulomatous disease. Bone Windows:Diffuse degenerative changes of the thoracic spine. Procedure Note Adrian Palencia MD - 12/31/2024 [facility] [address] [place] [address] Procedure(s): CT CHEST WO CON Date of service: 12/31/2024 10:46 AM Provided clinical information: 64 years, Female, fell backwards hitscapula and upper back Procedure and materials: Helical images of the chest are obtained fromsuperior to the thoracic inlet to inferior to the costophrenic angles.Examination performed without intravenous contrast. A dose lowering technique was used for this procedure, which may include,but is not limited to, dose reduction technique, automated exposurecontrol, iterative reconstruction, ALARA (As Low As ReasonablyAchievable), or Image Gently techniques. Comparison studies: None. Findings: Axillae: No enlarged axillary lymph nodes. Comminuted fracture of theproximal right humerus. Mediastinum/Pat:No cardiomegaly. No enlarged mediastinal or hilar lymphnodes. There may be a variant vascular variation with some vessels arisingfrom the left subclavian artery extending to the cervical region. Thesemay be thyroidal or branches of the thyrocervical trunk. 9 mm left thyroidnodule is present with coarse calcifications. Elective thyroid ultrasoundrecommended. Lung Parenchyma:Scarring in the right middle lobe. No effusions. Noconsolidations. Scattered groundglass opacifications are present in theleft upper lobe. One measures approximately 1.2 cm in AP dimension Thesemay be postinfectious in etiology. Clinical correlation recommended.Follow-up in 3 months is recommended to ensure resolution. Visualized Upper abdominal structures:Splenic calcifications are presentdue to prior granulomatous disease. Bone Windows:Diffuse degenerative changes of the thoracic spine. IMPRESSION: Ground glass opacifications are present in left lung. This may relate toinfectious change. Neoplasm can have this appearance. This measures 1.2 cmin AP dimension. Follow-up in 3 months recommended. Comminuted fracture proximal right humerus. Monique graph left thyroid nodulemeasuring 9 mm with coarse calcification. Elective thyroid ultrasound. 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 Ordered By: ZHANNA CARPENTER Interpreted By: Adrian Palencia MD, 12/31/2024 11:30 AM us Zhanna Carpenter MD CT Final Result * CT CERV SPINE WO CON (12/31/2024 11:07 AM CDT) Anatomical Region Laterality Modality Spine Computed Tomogra phy 12/31/2024 11:2 1 AM CDT Impressions 12/31/2024 11:24 AM CDT IMPRESSION: 1. No cervical spine fracture. 2. There is a 1.9 cm posterior right thyroid nodule. Nonemergent thyroid ultrasound would be beneficial for further characterization. Ordered By: ZHANNA CARPENTER Interpreted By: Drew Ferreira MD, 12/31/2024 11:21 AM Narrative 12/31/2024 11:24 AM CDT [address] [place] [address] Examination: CT CERV SPINE WO CON, 12/31/2024 10:46 AM. Technique: Computed tomographic images of the cervical spine were obtained without intravenous contrast. Additional coronal and sagittal reformatted images were generated at a separate workstation. A dose lowering technique was used for this procedure, which may include, but is not limited to, dose reduction technique, automated exposure control, the use of iterative reconstruction, and ALARA (As Low As Reasonably Achievable) / Image Gently techniques. Clinical history: fell backwards hit back and neck. Previous neck surgery Comparison: None available Findings: The cervical vertebral bodies and facets are well aligned. The cervical vertebral body heights are preserved. There is intervertebral disc spacers at C3-4 and C4- 5 no acute fracture nor destructive process of the visualized osseous structures. There is a 1.9 cm posterior right thyroid nodule (best seen on series 4 image 81). Procedure Note Drew Ferreira MD - 12/31/2024 [facility] [address] [place] [id number] Examination: CT CERV SPINE WO CON, 12/31/2024 10:46 AM. Technique: Computed tomographic images of the cervical spine were obtainedwithout intravenous contrast. Additional coronal and sagittal reformattedimages were generated at a separate workstation. A dose lowering techniquewas used for this procedure, which may include, but is not limited to,dose reduction technique, automated exposure control, the use of iterativereconstruction, and ALARA (As Low As Reasonably Achievable) / Image Gentlytechniques. Clinical history: fell backwards hit back and neck. Previous necksurgery Comparison: None available Findings: The cervical vertebral bodies and facets are well aligned. The cervicalvertebral body heights are preserved. There is intervertebral disc spacersat C3-4 and C4-5 no acute fracture nor destructive process of thevisualized osseous structures. There is a 1.9 cm posterior right thyroidnodule (best seen on series 4 image 81). IMPRESSION: 1. No cervical spine fracture. 2. There is a 1.9 cm posterior right thyroid nodule. Nonemergent thyroidultrasound would be beneficial for further characterization. Ordered By: ZHANNA CARPENTER Interpreted By: Drew Ferreira MD, 12/31/2024 11:21 AM Zhanna Carpenter MD CT Final Result from Last 3 Months Insurance [employer] Advance Directives * Full Code (Latest Code Status on File) Date Activated Date Inactivated Comments 11/18/2023 10:45 AM 11/21/2023 4:36 PM Care Teams Experimental Electronics Developer Relationship Specialty Start Date End Date Brooklynn Pennington APNP [address] [id number] PCP - General Nurse Practitioner Family 11/17/23
--- OUTSIDE RECORDS SUMMARY | 2025-01-02 16:53 | XMS_ITS ---
Author Name Benjamin Dennis Address [address] [place] [address] Phone [phone] Organization [facility] [employer] Address [address] [place] [address] Phone [phone] Care Team Providers Care Sql Report Writer Name Role Phone Benjamin Dennis Unavailable [phone] Functional Status No Results Mental Status No Results Allergies and Intolerances Name Onset Date Reaction Severity Peanuts (Allergy) TueJan 03 17:34:00 EDT 2017 Latex (Allergy) TueJan 03 17:34:00 EDT 2017 hydrocodone (Allergy) TueJan 03 17:34:00 EDT 20 18 Medications Medication Directions Start Date End Date dextrose 5 % and 0.45 % sodium chloride intravenous solution 1000 mL INTRAVENOUS SOLUTION Intravenous Continuous ADD 20 mEq KCl and run at 100mL/hr TueJan 03 18:00:00 EDT 2017Jan 04 01:00:00 EDT 2017 traMADol 50 mg tablet 100 mg TABLET Oral PRN Every 4 Hours pain TueJan 03 18:00:00 EDT 2017Jan 04 01:00:00 EDT 2017 ketorolac 30 mg/mL (1 mL) injection solution 1 mL VIAL (ML) Intravenous 2 Times Daily pain TueJan 03 19:00:00 EDT 2017Jan 04 01:00:00 EDT 2017 vancomycin 1,000 mg intravenous injection 200 mL VIAL (EA) Intravenous 2 Times Daily prophylaxis TueJan 03 19:00:00 EDT 2017Jan 04 01:00:00 EDT 2017 Pepcid 20 mg tablet 20 mg TABLET Oral 2 Times Daily gerd TueJan 03 19:00:00 EDT 2017Jan 04 01:00:00 EDT 2017 acetaminophen 500 mg tablet 1000 mg TABLET Oral PRN Every 6 Hours pain/temp TueJan 03 18:00:00 EDT 2017Jan 04 01:00:00 EDT 2018 Benadryl 25 mg capsule 50 mg CAPSULE Ora l PRN Hour Of Sleep insomnia TueJan 03 19:00:00 ED2017Jan 04 01::00 ED2017 Benadryl 25 mg capsule 50 mg CAPSULE Ora l PRN Every 6 Hours itching TueJan 03 19:00:00 ED2017Jan 04 01:00:00 EDT 2017 ondansetron HCl 4 mg/5 mL oral solution 5 mL SOLUTION, ORAL Oral PRN Every 4 Hours nausea TueJan 03 18:00:00 ED2017Jan 04:00:00 ED2017 Flexeril 10 mg tablet 10 mg TABLET Oral PRN Every 8 Hours spasms TueJan 03 18:00:2017Jan 03 19:33:00 ED2017 Milk of Magnesia 400 mg/5 mL oral suspension 30 mL SUSPENSION, ORAL (FINAL DOSE FORM) Oral PRN Hour Of Sleep constipation TueJan 03 18:00:00 ED2017Jan 04:00:00 ED2017 dexamethasone 2 mg tablet 10 mg TABLET O ral 1 Time Daily MAY BE ORAL OR IV TueJan 03 18:00:00 ED2017Jan 04 01:00:00 EDT 2017 Problems No Known Problems Reason for Referral
--- OUTSIDE RECORDS SUMMARY | 2025-01-02 16:53 | XMS_ITS ---
Author Name Benjamin Dennis Address [address] [place] [address] Phone [phone] Organization [employer] [employer] [facility] Address [address] [place] [address] Phone [phone] Care Team Providers Care Health And Fitness Professor Name Role Phone Benjamin Dennis Unavailable [phone] Functional Status No Results Mental Status No [...]
--- NOTE | 2025-01-02 16:55 | ED_ITS ---
HPI - Recheck/Abnormal Lab/Rx General Chief Complaint: Recheck/Abnormal Lab/Rx Stated Complaint: needs an ortho Time Seen by Provider: 01/02/25 16:41 Source: patient and family Mode of arrival: ambulatory Limitations: no limitations History of Present Illness HPI narrative: Patient had a fall 3 days ago, went to [facility], diagnosed with proximal right humeral fracture, referred to Orthopedic declined to take her insurance. Patient came to us today to be able to get referral to 1 of our orthopedic.. Patient was discharged on oxycodone which causing itching skin rash, patient unable to take it but had tramadol in the past. Related Data Home Medications ?Medication ?Instructions ?Recorded ?Confirmed ?Last Taken ?Type lidocaine HCl 4 % topical liquid 1 ea topical PRN PRN Pain 06/23/24 12/13/24 Unknown History roll-on (Aspercreme (lidocaine HCl)) Allergies Allergy/AdvReac Type Severity Reaction Status Date / Time cyclobenzaprine Allergy Mild HYPERACTIVI Verified 01/02/25 16:24 TY infliximab (From Remicade) Allergy Mild Hives Verified 01/02/25 16:24 latex Allergy Mild Rash Verified 01/02/25 16:24 lisinopril Allergy Mild cough Verified 01/02/25 16:24 contact metal agent Allergy Hives Verified 01/02/25 16:24 hydrocodone AdvReac Mild N/V Verified 01/02/25 16:24 clindamycin AdvReac Unknown other Verified 01/02/25 16:24 hydromorphone (From Dilaudid) AdvReac Vomiting Verified 01/02/25 16:24 oxycodone AdvReac Nausea and Verified 01/02/25 16:24 Vomiting palm oil Allergy Intermediate Hives Uncoded 01/02/25 16:24 COCONUT Allergy Mild Hives / Uncoded 01/02/25 16:24 Red Face Delodium AdvReac Mild Vomiting Uncoded 01/02/25 16:24 Review of Systems Review of Systems: All systems reviewed & are unremarkable except as noted in HPI and below PMFSH Past Medical History Medical History Vitamin D deficiency Depression Kidney stones Crohn's disease C. difficile colitis (11/2023) Osteopenia Cellulitis Yeast infection Allergies Obstructive sleep apnea not on CPAP Hypertension not currently on medication Inflammatory arthritis Hyperlipidemia Obesity Postmenopausal Arthritis Tobacco abuse Incisional hernia without obstruction or gangrene Umbilical hernia Degenerative joint disease Surgical History Surgical History History of ankle surgery ORIF right ankle fracture History of fusion of cervical spine History of hernia repair History of tubal ligation History of right hemicolectomy (2019) History of colonoscopy Family History Family History Father Diabetes mellitus Malignant neoplasm of prostate Hypertension Family history of diabetes mellitus in first degree relative Family history of malignant neoplasm of urinary bladder Family history of heart disease in male family member before age 55 Mother Diabetes mellitus Family history of kidney disease Patient's mother is Other Family history of cardiovascular disease Social History Social History Social History: Surrogate medical decision maker: Reynold Colbert, spouse. Code status: Full code. Smoking packs per day: 0.5 Smoking cigarettes per day: 10.0 Years smoked: 50 Smoking pack-years: 25.00 Smoking status: Former smoker Second hand tobacco smoke exposure: No Alcohol intake: current Drinks per week: 1 Substance use: never Substance use type: does not use Do You Feel Safe in your Home?: Yes Lack of Transportation: No Lack of Food: Never True Current Housing: I Have Housing Concerned About Future Housing: No Difficulty Paying Gas/Electric Bills: No Difficulty Paying for Meds: No Currently Unemployed: No Education: Decline to Answer Difficulty w/ Childcare or Family Care: No Living arrangements: with family Occupation/Education: retired Spiritual care concerns: No Agree to blood products: Yes Exam Narrative: General appearance: Well-developed, well-nourished Skin: Normal color Head: Normocephalic, nontraumatic Eyes: Clear conjunctiva ENT: Oropharynx normal, ears normal, nose normal Neck: Supple, nontender Chest and respiratory: Airway patent, no respiratory distress, no accessory muscle use Heart: Regular rate/rhythm Abdomen: Soft, nontender, no organomegaly, quiet bowel sounds Vascular: Normal peripheral pulses, normal capillary refill. 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 WHO ACCEPTED PATIENT TRANSFER Date: 01/02/25 Time: 20:34 Vital Signs Vital signs: Vital Signs Temperature 37.1 C 01/02/25 15:33 Pulse Rate 126 H 01/02/25 15:33 Respiratory Rate 20 01/02/25 15:33 Blood Pressure 186/91 H 01/02/25 15:33 Pulse Oximetry 95 01/02/25 15:33 Oxygen Delivery Room Air 01/02/25 15:33 Temperature 37.0 C 01/02/25 20:20 Pulse Rate 79 01/02/25 20:20 Respiratory Rate 20 01/02/25 20:20 Blood Pressure 153/92 H 01/02/25 20:20 Pulse Oximetry 98 01/02/25 20:20 Oxygen Delivery Room Air 01/02/25 15:33 MDM - Recheck/Abnormal Lab/Rx MDM Narrative Medical decision making narrative: Patient had a fall 3 days ago, [facility] discharge patient with fracture right humerus and follow-up with orthopedic. Vital signs showing blood pressure 186/91, heart rate 126 otherwise within normal limit Physical examination showing diffuse tenderness right shoulder, right upper extremity sling in place neurovascular intact Repeated x-ray in our emergency room showed possible dislocation, CT right shoulder showed right shoulder posterior dislocation and comminuted fracture of the humeral neck Transferred to [facility] discussed with the ED physician Dr. Juarez Differential Diagnosis Differential diagnosis: Likely other (As above) Imaging Data Radiologist's impression: Impressions Shoulder X-Ray 01/02/25 17:35 IMPRESSION: Comminuted and slightly impacted right humeral neck fracture with dislocation of the humeral head suspected. Shoulder CT 01/02/25 19:52 IMPRESSION: Comminuted fracture of the right humeral neck with posterior and caudal dislocation of the humeral head in relation to the glenoid fossa. Critical Care Time Critical Care Time Critical Care Time: No Discharge Plan Discharge Clinical Impression: Closed posterior dislocation of right shoulder, Fracture of shoulder Patient Disposition: Acute Care Hospital Condition: Stable Patient Language: Welsh Prescriptions: No Action albuterol sulfate 90 mcg/actuation HFA aerosol inhaler 1 inh inhalation Q4-6H PRN (Reason: shortness of breath or wheezing) Qty: 8.5 1RF duloxetine 60 mg capsule,delayed release(DR/EC) 60 mg PO BID Qty: 60 11RF omeprazole 40 mg capsule,delayed release(DR/EC) 40 mg PO DAILY 30 Days Qty: 30 3RF metoclopramide HCl [Reglan] 10 mg tablet 10 mg PO Q6H PRN (Reason: nausea and vomiting) Qty: 30 0RF ondansetron 4 mg tablet,disintegrating 4 mg PO Q6H PRN (Reason: nausea and vomiting) Qty: 60 0RF lidocaine HCl [Aspercreme (lidocaine HCl)] 4 % Liquid Roll-On 1 ea TOPICAL PRN PRN (Reason: Pain) prednisone 20 mg Tablet 40 mg PO DAILY Qty: 60 1RF simethicone 80 mg tablet,chewable 80 mg PO QID PRN (Reason: Gastric Reflux) Qty: 30 0RF cholestyramine (with sugar) 4 gram Powder In Packet 1 ea PO BID@1000,1800 Qty: 30 0RF prednisone 20 mg tablet 40 mg PO DAILY Qty: 30 4RF prochlorperazine maleate [Compazine] 10 mg tablet 10 mg PO Q8H PRN (Reason: Nausea And Vomiting) Qty: 30 0RF Follow-up/Referrals: Brooklynn Pennington, [employer] [Primary Care Provider] -
[2025-01-02] MEDS: ONDANSETRON HCL ODT 4 MG TABLET PO (17:24)
[2025-01-02] MEDS: HYDROmorphone HCL INJ (*CRX) 1 MG/ML SYR IM ×2 (17:24→20:21)
[2025-01-02 20:20] VITALS: BP 153/92; PULSE 79; RESP 20; TEMP 37; O2SAT 98
== END 2025-01-02 21:22 | disposition short-term general hospital (02) ==
PROVIDERS: Emergency Provider Emergency Medicine; PCP Nurse Practitioner Family
DX: S42.291A Other displaced fracture of upper end of right humerus, initial encounter for closed fracture (principal); I10 Essential (primary) hypertension; E55.9 Vitamin D deficiency, unspecified; E78.5 Hyperlipidemia, unspecified; E66.9 Obesity, unspecified; Z68.38 Body mass index [BMI] 38.0-38.9, adult; K50.90 Crohn's disease, unspecified, without complications; G47.33 Obstructive sleep apnea (adult) (pediatric); M85.80 Other specified disorders of bone density and structure, unspecified site; M19.90 Unspecified osteoarthritis, unspecified site; Z98.1 Arthrodesis status; Z87.442 Personal history of urinary calculi; Z87.891 Personal history of nicotine dependence; Z90.49 Acquired absence of other specified parts of digestive tract; Z79.899 Other long term (current) drug therapy; X58.XXXA Exposure to other specified factors, initial encounter
CPT/HCPCS: 73030; 73200; 96372; 99285; A9270; J1171

== ENCOUNTER 2025-02-20 21:30 | Emergency (ER) | payer MEDICARE, MEDICAID, SELFPAY ==
--- OUTSIDE RECORDS SUMMARY | 2025-02-20 21:31 | XMS_ITS | Clinical Summary ---
Author Organization [facility] [email or web address] Address [address] [place] [address] Care Team Providers Care Oral Communication Instructor Name Role Phone Brooklynn Pennington GLENDA-BEATRICE Primary Care Provider Source Comments [facility] [email or web address],non-owned Affiliates and Associated Physician Practices is amultiple site organization consisting of ambulatory clinics and hospital sitesin [place], [place], [place] and [place]. This disclosure is being madepursuant to the Care Everywhere program and may not contain all information available regarding this patient. Last updated 18.[facility] [email or web address] Allergies Active Allergy Reactions Criticality Noted Date Comments Clindamycin Unknown 01/02/2025 Coconut (Cocos Nucifera) Allergy Skin Test Other 01/02/2025 hives Cyclobenzaprine Other 01/02/2025 hyperactivity Hydrocodone Nausea and/or Vomiting 01/02/2025 Hydromorphone Vomiting 01/02/2025 Infliximab Rash Medium 01/02/2025 hives Latex Rash Medium 01/02/2025 Lisinopril Cough 01/02/2025 Oxycodone Nausea and/or Vomiting 01/02/2025 Medications * Be aware that medications may not be up to date on this document. Alwaysverify current medications with the patient. traMADol (Ultram) 50 MG tablet Take 1 (one) tablet by mouth every 6 hours as needed for Pain Active triamcinolone acetonide (Kenalog) 0.1 % cream Apply to affected area 3 times daily Active diphenhydrAMINE (Benadryl) 25 MG tablet Take by mouth as needed for Itching Active oxyCODONE, immediate release, (Roxicodone) 5 MG tabletIndicatio ns:Other closed displaced fracture of proximal end of right humerus, initial encounter Take 1 (one) tablet by mouth every 6 hours as needed for Pain 20 tablet 02/12/20 25 Discontinu ed(List Clean-Up) Encounters Date Type Department Care Team Description 02/11/2025 11:10 AM CDT - 02/11/2025 11:59 PM CDT Hospital Encounter [facility] [address] [place] [address] Franny Palacios MD Discharge Disposition: Home or Self Care 02/11/2025 10:45 AM CDT Office Visit [facility] - Orthopedics [address] [place] [phone] Franny Palacios MD Other closed displaced fracture of proximal end of right humerus with routine healing, subsequent encounter (Primary Dx) 02/11/2025 Travel 02/07/2025 Orders Only [facility] - Orthopedics [address] [place] [phone] Franny Palacios MD Other closed displaced fracture of proximal end of right humerus with routine healing, subsequent encounter 01/18/2025 Refill [facility] PHYS SURGERY [address] [place] [address] Sang Thomas MD MEDICATION REFILL 01/18/2025 Telephone [facility]opedics [address] [place] [phone] Franny Palacios MD Refill Request 01/14/2025 9:45 AM CDT Office Visit [facility] - Orthopedics [address] [place] [phone] Franny Palacios MD McCutchen, Kailey J, [employer] Acute pain of right shoulder (Primary Dx); Other closed displaced fracture of proximal end of right humerus, initial encounter; Injury of right shoulder, subsequent encounter 01/14/2025 9:23 AM CDT - 01/14/2025 11:59 PM CDT Hospital Encounter [facility] [address] [facility] [place] [address] Franny Palacios MD Discharge Disposition: Home or Self Care 01/14/2025 Travel 01/07/2025 9:45 AM CDT Office Visit [facility] Orthopedics [address] [place] [phone] Franny Palacios MD McCutchen, Kailey J, [employer] Other closed displaced fracture of proximal end of right humerus, initial encounter (Primary Dx); Acute pain of right shoulder 01/07/2025 Orders Only [facility] [address] [place] [phone] Franny Palacios MD Injury of right shoulder, subsequent encounter 01/07/2025 Travel 01/02/2025 9:58 PM CDT - 01/03/2025 5:29 AM CDT Emergency [facility] [address] [place] [phone] Franny Reyna MD Other closed nondisplaced fracture of proximal end of right humerus, initial encounter (Primary Dx); Fall, initial encounter Discharge Disposition: Home or Self Care from Last 3 Months Social History Tobacco Use Types Packs/Day Years Used Date Smoking Tobacco: Never Assessed PHQ-2 Answer Date Recorded Patient Health Questionnaire-2 Score 1 01/07/2025 Comments Unknown Sex and Gender Information Value Date Recorded Sex Assigned at Not on file Legal Sex Female 8:31 AM CDT Gender Identity Not on file Sexual Orientation Not on file Last Filed Vital Signs Vital Sign Reading Time Taken Comments Blood Pressure 146/78 01/03/2025 1:00 AM CDT Pulse 99 01/03/2025 1:00 AM CDT Temperature 36.3 C (97.4 F) 01/02/2025 10:01 PM CDT Respiratory Rate 18 01/03/2025 1:00 AM CDT Oxygen Saturation 100% 01/03/2025 1:00 AM CDT Inhaled Oxygen Concentration - - Weight 94.8 kg (209 lb) 02/11/2025 11:42 AM CDT Height 157.5 cm (5' 2 ) 02/11/2025 11:42 AM CDT Body Mass Index 38.23 02/11/2025 11:42 AM CDT Plan of Treatment Upcoming Encounters Date Type Department Care Team (Late st Contact Info) Description 03/25/2025 11:00 AM CDT Office Visit [facility] - [facility]oped[facility] [address] [place] [phone] Franny Palacios MD [address] [place] [phone] Health Maintenance Due Date Last Done Comments COLOGUARD (AGES 45-75) - COL ON CA SCREENING 1961 COLON MONITORING 1961 COLONOSCOPY - COLON CA SCREENING 1961 CT COLONOGRAPHY - COLON CA SCREENING 1961 Colorectal Cancer Screening 1961 FIT - COLON CA SCREENING 1961 FLEX SIG - COLON CA SCREENING 1961 LIPID TESTING 1961 MAMMOGRAM 1961 PAP SMEAR 1961 HIV SCREENING 1976 HEPATITIS C SCREENING 06/01/1979 DTAP/TDAP/TD VACCINES (1 - Tdap) 1980 PNEUMOCOCCAL VACCINE 50+ (1 of 1 - PCV) 2011 ZOSTER VACCINE (1 of 2) 2011 Respiratory Syncytial Virus (RSV) Vaccine Pt: or over 60 yrs (1 - Risk 60-74 years 1-dose series) 2021 COVID-19 VACCINE (4 - 2023-2 5 season) 2024 07/10/2021, 10/11/2020, 09/20/2020 MEDICARE AWV CALENDAR YEAR 2024 SCREENING FOR DIABETES 01/07/2025 INFLUENZA VACCINE (Season Ended) 2025 DEPRESSION SCREENING Completed 01/07/2025 HEPATITIS B VACCINE Aged Out No longe r eligible based on patient's age to complete this topic HIB VACCINE Aged Out No longer eligi ble based on patient's age to complete this topic HPV VACCINE Aged Out No longer eligi ble based on patient's age to complete this topic MENINGOCOCCAL (Group B) VACCINE SHARED DECISION-MAKING Aged Out No longer eligible based on patient's age to complete this topic MENINGOCOCCAL GROUPS A/C/Y/W VACCINE Aged Out No longer eligible b ased on patient's age to complete this topic Goals Goal Patient Goal Type Associated Problems Recent Progress Patient-Stated? Author Mobility General No ChristoSymone Pat Note: Expected end date: 3 months The goal is to maintain or improve your mobility at the optimum level for you. Interventions: Perform independent activity per your ability Procedures Procedure Name Priority Date/Time Associated Diagnosis Comments XR SHOULDER RIGHT 2VW OR MORE Routine 02/11/2025 11:29 AM CDT Other closed displaced fracture of proximal end of right humerus with routine healing, subsequent encounter XR SHOULDER RIGHT 2VW OR MORE Routine 01/14/2025 9:31 AM CDT Injury of right shoulder, subsequent encounter CT SHOULDER RIGHT WO CONTRAST STAT 01/03/2025 1:38 AM CDT Fall, initial encounter XR ELBOW RIGHT 3VW OR MORE STAT 01/03/2025 1:10 AM CDT Fall, initial encounter XR SHOULDER RIGHT 2VW OR MORE STAT 01/02/2025 10:29 PM CDT Fall, initial encounter XR HUMERUS RIGHT 2VW OR MORE STAT 01/02/2025 10:29 PM CDT Fall, initial encounter from Last 3 Months Results * XR Shoulder Right 2Vw or More (02/11/2025 11:29 AM CDT) Only the most recent of3 resultswithin the time period is included. Anatomical Region Laterality Modality Upper Extremity Radiographic Keeley ging 02/11/2025 11:3 2 AM CDT Impressions 02/11/2025 11:32 AM CDT IMPRESSION: Unchanged fracture alignment. > Interpreting Provider: Suresh aPtel MD on 02/11/2025 11:32 AM Narrative 02/11/2025 11:32 AM CDT PROCEDURE: XR SHOULDER RIGHT 2VW OR MORE DATE/TIME OF EXAM: 02/11/2025 11:29 AM CLINICAL INFORMATION: None relevant/not provided if blank. Indication: S42.291D: Other closed displaced fracture of proximal end of right humerus with routine healing, subsequent encounter Additional History: COMPARISON: 01/14/2025 FINDINGS: A moderately displaced humeral head and neck fracture is not significantly changed in alignment. Callus has progressed. There is mild osteoarthritis. There is no dislocation. Procedure Note Suresh Patel MD - 02/11/2025 PROCEDURE: XR SHOULDER RIGHT 2VW OR MORE DATE/TIME OF EXAM: 02/11/2025 11:29 AM CLINICAL INFORMATION: None relevant/not provided if blank. Indication: S42.291D: Other closed displaced fracture of proximal end of right humerus with routine healing, subsequent encounter Additional History: COMPARISON: 01/14/2025 FINDINGS: A moderately displaced humeral head and neck fracture is notsignificantly changed in alignment. Callus has progressed. There is mildosteoarthritis. There is no dislocation. IMPRESSION: Unchanged fracture alignment. > Interpreting Provider: Suresh Patel MD on 02/11/2025 11:32 AM us Franny Palacios MD DIAGNOSTIC IMAGING ORDERABLES Fi nal Result * CT Shoulder Right Wo Contrast (01/03/2025 1:38 AM CDT) Anatomical Region Laterality Modality Upper Extremity Computed Tomogra phy 01/03/2025 1:55 AM CDT Impressions 01/03/2025 8:17 AM CDT IMPRESSION: Moderately displaced fracture of the humeral neck and head. Dictated and interpreted by Jeovany Joe MD (president financial institution). I, Suresh Patel MD have personally reviewed and interpreted this examination/study. > Interpreting Provider: Suresh Patel MD on 01/03/2025 8:17 AM Narrative 01/03/2025 8:17 AM CDT PROCEDURE: CT SHOULDER RIGHT WO CONTRAST, DATE/TIME OF EXAM: 01/03/2025 1:39 AM, LOCATION [facility] INDICATION: W19.XXXA: Fall, initial encounter ADDITIONAL CLINICAL INFORMATION: Ordering Provider Reason For Exam: dislocated? COMPARISON: Right shoulder radiographs dated 01/02/2025 TECHNIQUE: Axial CT images of the right shoulder were performed without contrast. Coronal and sagittal reformatted images were submitted. FINDINGS/IMPRESSION: There is a comminuted, moderately displaced, impacted fracture of the right humeral neck extending into the humeral head with involvement of the greater tuberosity. There is a glenohumeral effusion with hemarthrosis. The humeral head is mildly subluxed inferiorly relative to the glenoid. There are mild degenerative changes of the acromioclavicular and glenohumeral joint. There is a large subacromial spur. 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 Procedure Note Suresh Patel MD - 01/03/2025 PROCEDURE: CT SHOULDER RIGHT WO CONTRAST, DATE/TIME OF EXAM: 01/03/2025 1:39 AM, LOCATION [facility] INDICATION: W19.XXXA: Fall, initial encounter ADDITIONAL CLINICAL INFORMATION: Ordering Provider Reason For Exam: dislocated? COMPARISON: Right shoulder radiographs dated 01/02/2025 TECHNIQUE: Axial CT images of the right shoulder were performed without contrast. Coronal and sagittal reformatted images were submitted. FINDINGS/IMPRESSION: There is a comminuted, moderately displaced, impacted fracture of theright humeral neck extending into the humeral head with involvement of the greater tuberosity. There is a glenohumeral effusion with hemarthrosis.The humeral head is mildly subluxed inferiorly relative to the glenoid.There are mild degenerative changes of the acromioclavicular and glenohumeral joint. There is a large subacromial spur. There are postsurgical changesof intervertebral disc arthroplasty in the cervical spine. IMPRESSION: Moderately displaced fracture of the humeral neck and head. Dictated and interpreted by Jeovany Joe MD (president financial institution). I, Suresh Patel MD have personally reviewed and interpreted this examination/study. > Interpreting Provider: Suresh Patel MD on 01/03/2025 8:17 AM us Franny Reyna MD CT ORDERABLES Final Result * XR Elbow Right 3Vw or More (01/03/2025 1:10 AM CDT) Anatomical Region Laterality Modality Upper Extremity Digital Radiogra phy 01/03/2025 1:06 AM CDT Impressions 01/03/2025 9:14 AM CDT IMPRESSION: No acute fracture or dislocation identified. Report dictated by Jevoany Joe MD (president financial institution). Ayana Brooks MD have personally reviewed and interpreted this examination/study. > Interpreting Provider: Ayana Ball MD on 01/03/2025 9:14 AM Narrative 01/03/2025 9:14 AM CDT PROCEDURE: XR ELBOW RIGHT 3VW OR MORE, DATE/TIME OF EXAM: 01/03/2025 12:57 AM, LOCATION [facility] INDICATION: W19.XXXA: Fall, initial encounter ADDITIONAL CLINICAL INFORMATION: Ordering Provider Reason For Exam: fx COMPARISON: None. FINDINGS: The osseous structures are intact and well aligned without acute fracture or dislocation. The joint spaces are preserved. No joint effusion is seen. Bone density and texture are normal. No soft tissue swelling is present. Procedure Note Ayana Ball MD - 01/03/2025 PROCEDURE: XR ELBOW RIGHT 3VW OR MORE, DATE/TIME OF EXAM: 2:57 AM, LOCATION [facility] INDICATION: W19.XXXA: Fall, initial encounter ADDITIONAL CLINICAL INFORMATION: Ordering Provider Reason For Exam: fx COMPARISON: None. FINDINGS: The osseous structures are intact and well aligned without acutefracture or dislocation. The joint spaces are preserved. No joint effusion isseen. Bone density and texture are normal. No soft tissue swelling is present. IMPRESSION: No acute fracture or dislocation identified. Report dictated by Jeovany Joe MD (president financial institution). Ayana Brooks MD have personally reviewed and interpreted this examination/study. > Interpreting Provider: Ayana Ball MD on 01/03/2025 9:14 AM us Franny Reyna MD DIAGNOSTIC IMAGING ORDERABLES Fi nal Result * XR Humerus Right 2Vw or More (01/02/2025 10:29 PM CDT) Anatomical Region Laterality Modality Upper Extremity Digital Radiogra phy 01/02/2025 11:1 9 PM CDT Impressions 01/03/2025 8:44 AM CDT IMPRESSION: Acute, comminuted and moderately displaced proximal humerus fracture with pseudosubluxation of the humeral head from adjacent hemarthrosis. No dislocation. Report dictated by Eduardo Emerson MD (president financial institution). Gonsalo Brooks MD have personally reviewed and interpreted this examination/study. > Interpreting Provider: Gonsalo Garcia MD on 01/03/2025 8:44 AM Narrative 01/03/2025 8:44 AM CDT PROCEDURE: XR SHOULDER RIGHT 2VW OR MORE, XR HUMERUS RIGHT 2VW OR MORE, DATE/TIME OF EXAM: 01/02/2025 10:29 PM, LOCATION [facility] INDICATION: W19.XXXA: Fall, initial encounter ADDITIONAL CLINICAL INFORMATION: Ordering Provider Reason For Exam: fx Technologist Note: Additional: COMPARISON: None. FINDINGS: Right shoulder: Acute, comminuted and moderately displaced proximal humerus fracture. There is inferior pseudosubluxation of the humeral head from adjacent hemarthrosis. No mackenzie dislocation. The acromioclavicular joint is well aligned. Bone density and texture are normal. Right humerus: Comminuted proximal humerus fracture. The distal humerus is intact. Bone density and texture are normal. Procedure Note Gonsalo Gracia MD - 01/03/2025 PROCEDURE: XR SHOULDER RIGHT 2VW OR MORE, XR HUMERUS RIGHT 2VW OR MORE, DATE/TIME OF EXAM: 01/02/2025 10:29 PM, LOCATION [facility] INDICATION: W19.XXXA: Fall, initial encounter ADDITIONAL CLINICAL INFORMATION: Ordering Provider Reason For Exam: fx Technologist Note: Additional: COMPARISON: None. FINDINGS: Right shoulder: Acute, comminuted and moderately displaced proximal humerus fracture.There is inferior pseudosubluxation of the humeral head from adjacent hemarthrosis. No mackenzie dislocation. The acromioclavicular joint is well aligned. Bone density and texture are normal. Right humerus: Comminuted proximal humerus fracture. The distal humerus is intact. Bone density and texture are normal. IMPRESSION: Acute, comminuted and moderately displaced proximal humerus fracturewith pseudosubluxation of the humeral head from adjacent hemarthrosis. No dislocation. Report dictated by Eduardo Emerson MD (president financial institution). I, Gonsalo Gracia MD have personally reviewed and interpreted this examination/study. > Interpreting Provider: Gonsalo Gracia MD on 01/03/2025 8:44 AM us Franny Reyna MD DIAGNOSTIC IMAGING ORDERABLES Fi nal Result from Last 3 Months Insurance [facility] SELF PAY NO INSURANCE Member Subscriber Plan / Payer (Ef fective for All Dates) Name:Mayda Colbert Member ID:Not on file Relation to Subscriber:Not on file Name:MAYDA COLBERT Subscriber ID:Not on file (Home) Address: [place] [address] Payer ID:Not on file Group ID:Not on file Type:Self Pay Address: [place], [place] [employer] MANAGED CARE MEDICARE ADV * Guarantor: MAYDA COLBERT Account Type Relation to Patient Date of Phone Billing Address Personal/[place] [address] [facility] SELF PAY NO INSURANCE Member Subscriber Plan / Payer (Ef fective for All Dates) Name:Mayda Colbert Member ID:Not on file Relation to Subscriber:Not on file Name:MAYDA COLBERT Subscriber ID:Not on file Address: [place] [address] Payer ID:Not on file Group ID:Not on file Type:Self Pay Address: [place], [place] * Guarantor: MAYDA COLBERT Account Type Relation to Patient Date of Phone Billing Address Personal/[place] [address] [facility] SELF PAY NO INSURANCE Member Subscriber Plan / Payer (Ef fective for All Dates) Name:Mayda Colbert Member ID:Not on file Relation to Subscriber:Not on file Name:MAYDA COLBERT Subscriber ID:Not on file Address: [address] [place] [phone] Payer ID:Not on file Group ID:Not on file Type:Self Pay Address: [place], [place] [facility] SELF PAY NO INSURANCE Member Subscriber Plan / Payer (Ef fective for All Dates) Name:Mayda Colbert Member ID:Not on file Relation to Subscriber:Not on file Name:MAYDA COLBERT Subscriber ID:Not on file Address: [address] [place] [phone] Payer ID:Not on file Group ID:Not on file Type:Self Pay Address: [place], [place] [facility] SELF PAY NO INSURANCE Member Subscriber Plan / Payer (Ef fective for All Dates) Name:Mayda Colbert Member ID:Not on file Relation to Subscriber:Not on file Name:MAYDA COLBERT Subscriber ID:Not on file Address: [address] [place] [phone] Payer ID:Not on file Group ID:Not on file Type:Self Pay Address: [place], [place] Care Teams Oral Communication Instructor Relationship Specialty Start Date End Date Brooklynn Pennington, GLENDA-BEATRICE [address] [phone] PCP - General Nurse Practitioner 01/03/25
--- OUTSIDE RECORDS SUMMARY | 2025-02-20 21:31 | XMS_ITS ---
Author Name Auto Generated, Auto Generated Organization [facility] ice Address [facility] [facility] [place] [address] Phone [phone] Care Team Providers Care Segmental Paving Supervisor Name Role Phone Benjamin Dennis Unavailable [phone] Functional Status No Results Mental Status No [...] 18:00:00 EDT 2017Jan 04 01:00:00 EDT 2017 Benadryl 25 mg capsule 50 mg CAPSULE Ora l PRN Hour Of Sleep insomnia TueJan 03 19:00:00 EDT 2017Jan 04:00:00 ED2017 Benadryl 25 mg capsule 50 mg CAPSULE Ora l PRN Every 6 Hours itching TueJan 03 19:00:00 ED2017Jan 04 01:00:00 ED2017 ondansetron HCl 4 mg/5 mL oral solution 5 mL SOLUTION, ORAL Oral PRN Every 4 Hours nausea TueJan 03 18:00:00 ED2017Jan 04:00:00 ED2017 Flexeril 10 mg tablet 10 mg TABLET Oral PRN Every 8 Hours spasms TueJan 03 18:00:00 ED2017Jan 03 19:33:00 EDT 2017 Milk of Magnesia 400 mg/5 mL oral suspension 30 mL SUSPENSION, ORAL (FINAL DOSE FORM) Oral PRN Hour Of Sleep constipation TueJan 03 18:00:00 ED2017Jan 04 01:00:00 ED2017 dexamethasone 2 mg tablet 10 mg TABLET O ral 1 Time Daily MAY BE ORAL OR IV TueJan 03 18:00:00 EDT 2017Jan 04:00:00 EDT 2017 Problems No Known Problems Reason for Referral
--- OUTSIDE RECORDS SUMMARY | 2025-02-20 21:31 | XMS_ITS ---
Author Name Auto Generated, Auto Generated Organization [facility] ice Address [facility] [place] [address] Phone [phone] Care Team Providers Care Night Custodian Name Role Phone Benjamin Dennis Unavailable [phone] Functional Status No Results Mental Status No [...]
[2025-02-20 21:50] VITALS: BP 176/95; PULSE 119; RESP 20; TEMP 36.8; O2SAT 100
[2025-02-20 22:36] LABS: Basophils Absolute Auto 0.1 K/mm3 (0.0-0.1); Basophils Percent Auto 0.6 % (0.2-1.2); Eosinophils Absolute Auto 0.1 K/mm3 (0-0.3); Eosinophils Percent Auto 1.6 % (0-4.4); Hematocrit 47.6 % (37.0-47.0); Immature Granulocyte Absolute 0.02 K/mm3 (0.00-0.031); Immature Granulocyte Percent A 0.2 % (0-0.5); Lymphocytes Absolute Auto 1.94 K/mm3 (0.9-3.2); Lymphocytes Percent Auto 23.3 % (18.3-44.2); Mean Corpuscular HGB Conc 31.5 g/dl (32-36); Mean Corpuscular Hemoglobin 29.9 pg (26-34); Mean Corpuscular Volume 94.8 fl (80-100); Mean Platelet Volume 8.3 fl (7.4-10.4); Monocytes Absolute Auto 0.5 K/mm3 (0.1-0.6); Monocytes Percent Auto 6.5 % (2.6-8.5); Neutrophils Absolute Auto 5.7 K/mm3 (1.3-6.7); Neutrophils Percent Auto 67.8 % (45.5-73.1); Platelet Count Result 383 k/mm3 (150-375); Red Blood Count 5.02 M/mm3 (4.2-5.4); Red Cell Distribution Width 13.2 % (11.5-14.5); White Blood Count 8.3 K/mm3 (4.5-10.0)
[2025-02-20 22:46] LABS: Alanine Aminotransferase 21 U/L (6-35); Alkaline Phosphatase 186 U/L (38-126); Anion Gap 7 mmol/L (4-12); Aspartate Amino Transferase 36 U/L (14-36); Bilirubin,Total 0.5 mg/dL (0.2-1.3); Blood Urea Nitrogen 5 mg/dL (7-17); Calcium 9.1 mg/dL (8.4-10.2); Carbon Dioxide 25 mmol/L (22-30); Chloride 106 mmol/L (98-107); Estimated CRCL calculation 75 ml/min; Estimated Glomerular Filt Rate > 60; Glucose 115 mg/dL (65-110); Lipase 90 U/L (23-300); Potassium 3.5 mmol/L (3.4-5.0); Sodium 138 mmol/L (137-145)
[2025-02-20 23:43] LABS: Add Urine Microscopic? YES; Appearance Urine Cloudy (Clear); Bacteria Urine 2+ /hpf; Bilirubin Urine Negative (Negative); Blood Urine Negative (Negative); Color Urine Yellow (Yellow); Glucose Urine UA Negative (Negative); Ketones Urine Trace mg/dL (Negative); Leukocyte Esterase Ur Trace LEU/UL (Negative); Nitrate Urine Negative (Negative); Non Pathogenic Casts 0-2; Protein Urine Negative (Negative); RBC Urine 0-2 /hpf (0-2); Specific Grav Ur 1.015 (1.001-1.035); Squamous Epithelial Cell Urine Moderate /hpf (Few); Urobilinogen Urine 0.2 mg/dL (<2.0); WBC Urine 0-5 /hpf (0-3)
[2025-02-21 00:03] VITALS: BP 153/76; PULSE 116; RESP 20; O2SAT 100
--- NOTE | 2025-02-21 00:28 | ED.GENADULT ---
HPI - General Adult General Chief complaint: Abdominal Pain Stated complaint: crohns Time Seen by Provider: 02/21/25 00:10 History of Present Illness HPI narrative: 64-year-old female with history of Crohn's disease present to the emergency department for evaluation for nausea vomiting and periumbilical abdominal pain. Patient states her current pain is similar to previous Crohn's flares. Patient has been taking SKYRIZI for the last 2 months and patient is had an injection last week. Patient states she has tolerated her previous injections well. Patient does have a no fracture of her right humeral head but states due to the persistent nausea and vomiting she has been unable to take her tramadol for pain control. Patient does report nausea vomiting and periumbilical abdominal discomfort. Related Data Home Medications ?Medication ?Instructions ?Recorded ?Confirmed ?Last Taken ?Type lidocaine HCl 4 % topical liquid 1 ea topical PRN PRN Pain 06/23/24 12/13/24 Unknown History roll-on (Aspercreme (lidocaine HCl)) Allergies Allergy/AdvReac Type Severity Reaction Status Date / Time cyclobenzaprine Allergy Mild HYPERACTIVI Verified 02/20/25 21:32 TY infliximab (From Remicade) Allergy Mild Hives Verified 02/20/25 21:32 latex Allergy Mild Rash Verified 02/20/25 21:32 lisinopril Allergy Mild cough Verified 02/20/25 21:32 contact metal agent Allergy Hives Verified 02/20/25 21:32 hydrocodone AdvReac Mild N/V Verified 02/20/25 21:32 clindamycin AdvReac Unknown other Verified 02/20/25 21:32 hydromorphone (From Dilaudid) AdvReac Vomiting Verified 02/20/25 21:32 oxycodone AdvReac Nausea and Verified 02/20/25 21:32 Vomiting palm oil Allergy Intermediate Hives Uncoded 02/20/25 21:32 COCONUT Allergy Mild Hives / Uncoded 02/20/25 21:32 Red Face Delodium AdvReac Mild Vomiting Uncoded 02/20/25 21:32 Review of Systems Review of Systems: All systems reviewed & are unremarkable except as noted in HPI and below PMFSH Past Medical History Medical History (Updated 02/21/25 @ 03:39 by Saw Gan MD) Thyroid nodule Dislocation of right shoulder joint Comminuted right humeral fracture Right shoulder pain Acute pain Vitamin D deficiency Depression Kidney stones Crohn's disease C. difficile colitis (11/2023) Osteopenia Cellulitis Yeast infection Allergies Obstructive sleep apnea not on CPAP Hypertension not currently on medication Inflammatory arthritis Hyperlipidemia Obesity Postmenopausal Arthritis Tobacco abuse Incisional hernia without obstruction or gangrene Umbilical hernia Degenerative joint disease Surgical History Surgical History History of ankle surgery ORIF right ankle fracture History of fusion of cervical spine History of hernia repair History of tubal ligation History of right hemicolectomy (2019) History of colonoscopy Family History Family History Father Diabetes mellitus Malignant neoplasm of prostate Hypertension Family history of diabetes mellitus in first degree relative Family history of malignant neoplasm of urinary bladder Family history of heart disease in male family member before age 55 Mother Diabetes mellitus Family history of kidney disease Patient's mother is Other Family history of cardiovascular disease Social History Social History (Updated 01/31/25 @ 11:44 by Nupur Delgado MA) Social History: Surrogate medical decision maker: Reynold Colbert, spouse. Code status: Full code. Smoking packs per day: 0.5 Smoking cigarettes per day: 10.0 Years smoked: 50 Smoking pack-years: 25.00 Smoking status: Current every day smoker Second hand tobacco smoke exposure: No Alcohol intake: former Drinks per week: 1 Substance use: never Substance use type: does not use Do You Feel Safe in your Home?: Yes Lack of Transportation: No Lack of Food: Never True Current Housing: I Have Housing Concerned About Future Housing: No Difficulty Paying Gas/Electric Bills: No Difficulty Paying for Meds: No Currently Unemployed: No Education: Decline to Answer Difficulty w/ Childcare or Family Care: No Living arrangements: with family Occupation/Education: retired Spiritual care concerns: No Agree to blood products: Yes Exam Narrative: APPEARANCE: Well appearing, no pain, no distress, well-nourished. HEAD: normocephalic, atraumatic. EYES: PERRLA/EOMI, conjunctivae clear. NOSE: Normal no drainage EARS:TMS clear with good light reflex. THROAT: Pharynx clear, no exudate. NECK: Supple. No adenopathy, no masses. RESPIRATORY: Airway patent, respirations nonlabored. Clear to auscultation bilaterally, no rales, rhonchi, wheezing. CARDIOVASCULAR: Regular rate and rhythm without murmurs rubs or gallops. ABDOMINAL: Mild periumbilical tenderness to palpation with normal bowel sounds MUSCULOSKELETAL: Decreased range of motion of right shoulder due to previous injury, neurovascularly intact NEURO: Alert. Cranial nerves II through XII intact. Good gait. Good coordination SKIN: Warm, dry. Normal Color Course Vital Signs Vital signs: Vital Signs Temperature 98.3 F 02/20/25 21:50 Pulse Rate 119 H 02/20/25 21:50 Respiratory Rate 20 02/20/25 21:50 Blood Pressure 176/95 H 02/20/25 21:50 Pulse Oximetry 100 02/20/25 21:50 Temperature 98.3 F 02/20/25 21:50 Pulse Rate 98 02/21/25 03:52 Respiratory Rate 17 02/21/25 03:52 Blood Pressure 122/84 02/21/25 03:52 Pulse Oximetry 98 02/21/25 03:52 Medical Decision Making [facility] Narrative Medical decision making narrative: 64-year-old female presents emergency department for evaluation for nausea vomiting. Patient is currently afebrile with no leukocytosis hemoglobin 15. No significant abnormalities on the patient's CMP. UA was negative for infection. Patient did have moderate squamous and +2 bacteria so urine culture was ordered. Re-evaluation patient states she does feel improved. Patient was encouraged close follow-up with primary care physician. Prior to discharge patient's abdomen was soft nontender and nonsurgical. Differential Diagnosis Differential Diagnosis: Nausea vomiting diarrhea, Crohn's flare, dehydration, UTI Vital Signs Vital Signs: Vital Signs Temperature 98.3 F 02/20/25 21:50 Pulse Rate 119 H 02/20/25 21:50 Respiratory Rate 20 02/20/25 21:50 Blood Pressure 176/95 H 02/20/25 21:50 Pulse Oximetry 100 02/20/25 21:50 Temperature 98.3 F 02/20/25 21:50 Pulse Rate 98 02/21/25 03:52 Respiratory Rate 17 02/21/25 03:52 Blood Pressure 122/84 02/21/25 03:52 Pulse Oximetry 98 02/21/25 03:52 Lab Data Lab results reviewed: Yes I reviewed the patient's lab results. 02/20/25 22:30 02/20/25 22:30 Labs: Lab Results 02/20/25 02/20/25 Range/Units 22:30 23:27 WBC 8.3 (4.5-10.0) K/mm3 RBC 5.02 (4.2-5.4) M/mm3 Hgb 15.0 (12.0-15.0) g/dL Hct 47.6 H (37.0-47.0) % MCV 94.8 (80-100) fl MCH 29.9 (26-34) pg MCHC 31.5 L (32-36) g/dl RDW 13.2 (11.5-14.5) % Plt Count 383 H (150-375) k/mm3 MPV 8.3 (7.4-10.4) fl Immature Gran % (Auto) 0.2 (0-0.5) % Neut % (Auto) 67.8 (45.5-73.1) % Lymph % (Auto) 23.3 (18.3-44.2) % [place] % (Auto) 6.5 (2.6-8.5) % Eos % (Auto) 1.6 (0-4.4) % Baso % (Auto) 0.6 (0.2-1.2) % Lymph # (Auto) 1.94 (0.9-3.2) K/mm3 [place] # (Auto) 0.5 (0.1-0.6) K/mm3 Eos # (Auto) 0.1 (0-0.3) K/mm3 Baso # (Auto) 0.1 (0.0-0.1) K/mm3 Abs Immat Gran (auto) 0.02 (0.00-0.031) K/mm3 Absolute Neuts (auto) 5.7 (1.3-6.7) K/mm3 Absolute Nucleated RBC 0.000 (0.0-0.012) K/mm3 Nucleated RBC % 0.0 (0.0-0.2) % Sodium 138 (137-145) mmol/L Potassium 3.5 (3.4-5.0) mmol/L Chloride 106 (98-107) mmol/L Carbon Dioxide 25 (22-30) mmol/L Anion Gap 7 (4-12) mmol/L BUN 5 L D (7-17) mg/dL Creatinine 0.73 (0.7-1.0) mg/dL Estim Creat Clear Calc 75 ml/min Estimated GFR > 60 (59 - ) Glucose 115 H (65-110) mg/dL Calcium 9.1 (8.4-10.2) mg/dL Total Bilirubin 0.5 (0.2-1.3) mg/dL AST 36 (14-36) U/L ALT 21 (6-35) U/L Alkaline Phosphatase 186 H (38-126) U/L Total Protein 8.0 (6.3-8.2) g/dL Albumin 4.0 (3.5-5.1) g/dL Lipase 90 (23-300) U/L Urine Color Yellow (Yellow) Urine Appearance Cloudy H (Clear) Urine pH 6.0 (5.0-9.0) Ur Specific [place] 1.015 (1.001-1.035) Urine Protein Negative (Negative) mg/dL Urine Glucose (UA) Negative (Negative) mg/dL Urine Ketones Trace H (Negative) mg/dL Ur Blood (Man) Negative (Negative) Urine Nitrate Negative (Negative) Urine Bilirubin Negative (Negative) Urine Urobilinogen 0.2 (<2.0) mg/dL Leukocyte Esterase Rfl Trace H (Negative) PERLA/UL Urine RBC 0-2 (0-2) /hpf Urine WBC 0-5 (0-3) /hpf Ur Squamous Epith Cells Moderate (Few) /hpf Urine Bacteria 2+ H /hpf Urine Casts 0-2 Discharge Plan Discharge Clinical Impression: Nausea & vomiting, Abdominal pain Patient Disposition: Home Condition: Stable Instructions: Antibiotic Form, Clear Liquid Diet (ED), Acute Nausea and Vomiting (DC), Abdominal Pain (ED) Additional Instructions: Zofran as needed for nausea control. Clear liquid diet for the next 1-3 days. Have close follow-up with your physicians. If you have any worsening symptoms then please call or return to the emergency department. Patient Language: Frisian Prescriptions: No Action albuterol sulfate 90 mcg/actuation HFA aerosol inhaler 1 inh inhalation Q4-6H PRN (Reason: shortness of breath or wheezing) Qty: 8.5 1RF duloxetine 60 mg capsule,delayed release(DR/EC) 60 mg PO BID Qty: 60 11RF omeprazole 40 mg capsule,delayed release(DR/EC) 40 mg PO DAILY 30 Days Qty: 30 3RF metoclopramide HCl [Reglan] 10 mg tablet 10 mg PO Q6H PRN (Reason: nausea and vomiting) Qty: 30 0RF ondansetron 4 mg tablet,disintegrating 4 mg PO Q6H PRN (Reason: nausea and vomiting) Qty: 60 0RF lidocaine HCl [Aspercreme (lidocaine HCl)] 4 % Liquid Roll-On 1 ea TOPICAL PRN PRN (Reason: Pain) prednisone 20 mg Tablet 40 mg PO DAILY Qty: 60 1RF simethicone 80 mg tablet,chewable 80 mg PO QID PRN (Reason: Gastric Reflux) Qty: 30 0RF cholestyramine (with sugar) 4 gram Powder In Packet 1 ea PO BID@1000,1800 Qty: 30 0RF prednisone 20 mg tablet 40 mg PO DAILY Qty: 30 4RF prochlorperazine maleate [Compazine] 10 mg tablet 10 mg PO Q8H PRN (Reason: Nausea And Vomiting) Qty: 30 0RF tramadol 50 mg tablet 50 - 100 mg PO Q8H PRN (Reason: pain) Qty: 90 0RF triamcinolone acetonide 0.1 % cream 1 applic topical BID PRN (Reason: rash) Qty: 30 1RF Follow-up/Referrals: Brooklynn Pennington NP [Primary Care Provider] -
--- NOTE | 2025-02-21 00:50 | PC.NURSE ---
This RN attempted IV twice on pt and was unsuccessful.
--- OUTSIDE RECORDS SUMMARY | 2025-02-21 00:55 | XMS_ITS ---
Author Name Auto Generated, Auto Generated Organization [facility] Address [facility] [place] [address] Phone [phone] Care Team Providers Care Teacher Education Instructor Name Role Phone Benjamin Dennis Unavailable [phone] Functional Status Mental Status Allergies and Intolerances Medications Problems No Known Problems Reason for Referral
--- OUTSIDE RECORDS SUMMARY | 2025-02-21 00:55 | XMS_ITS ---
Author Name Auto Generated, Auto Generated Organization [facility] ice Address [facility] [facility] [place] [address] Phone [phone] Care Team Providers Care Assignment Desk Editor Name Role Phone Benjamin Dennis Unavailable [phone] Functional Status No Results Mental Status No [...]
--- OUTSIDE RECORDS SUMMARY | 2025-02-21 00:55 | XMS_ITS | Clinical Summary ---
Author Organization [facility] Address [address] [facility] [place] [facility] [place] [address] Care Team Providers Care Practice Administrator Name Role Phone Brooklynn Pennington GLENDA-BEATRICE Primary Care Provider Source Comments [facility],non-owned Affiliates and Associated Physician Practices is amultiple site organization consisting of ambulatory clinics and hospital sitesin [place], [place], [place] and [place]. This disclosure is being madepursuant to the Care Everywhere program and may not contain all information available regarding this patient. Last updated 18.[facility] Allergies Active Allergy Reactions Criticality Noted Date [...] - 02/11/2025 11:59 PM CDT Hospital Encounter [facility] DIAGNOSTIC RAD CSM [address] [facility] [place] [address] Franny Palacios MD Discharge Disposition: Home or Self Care 02/11/2025 10:45 AM CDT Office Visit [facility] [address] [place] [phone] Franny Palacios MD Other closed displaced fracture of proximal end of right humerus with routine healing, subsequent encounter (Primary Dx) 02/11/2025 Travel 02/07/2025 Orders Only [facility] [address] [place] [phone] Franny Palacios MD Other closed displaced fracture of proximal end of right humerus with routine healing, subsequent encounter 01/18/2025 Refill [facility] PHYS SURGERY [address] [place] [address] Sang Thomas MD MEDICATION REFILL 01/18/2025 Telephone [facility] [address] [place] [phone] Franny Palacios MD Refill Request 01/14/2025 9:45 AM CDT Office Visit [facility] [address] [place] [phone] Franny Palacios MD McCutchen, Kailey J, MANAGER [employer] MILLING MACHINIST Acute pain of right shoulder (Primary Dx); Other closed displaced fracture of proximal end of right humerus, initial encounter; Injury of right shoulder, subsequent encounter 01/14/2025 9:23 AM CDT - 01/14/2025 11:59 PM CDT Hospital Encounter [facility] DIAGNOSTIC RAD CSM [address] [facility] 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 Other closed displaced fracture of proximal end of right humerus, initial encounter (Primary Dx); Acute pain of right shoulder 01/07/2025 Orders Only [facility] [address] [place] [phone] Franny Palacios MD Injury of right shoulder, subsequent encounter 01/07/2025 Travel 01/02/2025 9:58 PM CDT - 01/03/2025 5:29 AM CDT Emergency [facility] EMERGENCY DEPARTMENT [address] [place] [phone] Franny Reyna MD Other closed nondisplaced fracture [...] Visit [facility]ics [address] [facility] [place] [phone] Franny Palacios MD [address] [place] [phone] Health Maintenance Due Date Last Done Comments [...] Suresh Patel MD on 02/11/2025 11:32 AM Narrative 02/11/2025 [...] Dictated and interpreted by Jeovany Joe MD (associate professor of radiology). I, Suresh Patel MD have personally reviewed and interpreted this examination/study. > Interpreting Provider: Suresh Patel MD on 01/03/2025 8:17 AM Narrative 01/03/2025 8:17 AM CDT PROCEDURE: CT SHOULDER RIGHT WO CONTRAST, DATE/TIME OF EXAM: 01/03/2025 1:39 AM, LOCATION [facility] INDICATION: W19.XXXA: Fall, initial encounter ADDITIONAL CLINICAL [...] DATE/TIME OF EXAM: 01/03/2025 1:39 AM, LOCATION [facility] INDICATION: W19.XXXA: Fall, initial encounter ADDITIONAL CLINICAL [...] Dictated and interpreted by Jeovany Joe MD (associate professor of radiology). I, Suresh Patel MD have personally reviewed [...] identified. Report dictated by Jeovany Joe MD (associate professor of radiology). Ayana Brooks MD have personally reviewed and interpreted this examination/study. > Interpreting Provider: Ayana Ball MD on 01/03/2025 9:14 AM Narrative 01/03/2025 9:14 AM CDT PROCEDURE: XR ELBOW RIGHT 3VW OR MORE, DATE/TIME OF EXAM: 01/03/2025 12:57 AM, LOCATION [facility] INDICATION: W19.XXXA: Fall, initial encounter ADDITIONAL CLINICAL [...] MORE, DATE/TIME OF EXAM: 2:57 AM, LOCATION [facility] INDICATION: W19.XXXA: Fall, initial encounter ADDITIONAL CLINICAL INFORMATION: Ordering Provider Reason For Exam: fx COMPARISON: None. FINDINGS: The osseous structures are intact and well aligned without acutefracture or dislocation. The joint spaces are preserved. No joint effusion isseen. Bone density and texture are normal. No soft tissue swelling is present. IMPRESSION: No acute fracture or dislocation identified. Report dictated by Jeovany Joe MD (associate professor of radiology). Ayana Brooks MD have personally reviewed and [...] dislocation. Report dictated by Eduardo Emerson MD (associate professor of radiology). Gonsalo Brooks MD have personally reviewed and interpreted this examination/study. > Interpreting Provider: Gonsalo Gracia MD on 01/03/2025 8:44 AM Narrative 01/03/2025 8:44 AM CDT PROCEDURE: XR SHOULDER RIGHT 2VW OR MORE, XR HUMERUS RIGHT 2VW OR MORE, DATE/TIME OF EXAM: 01/02/2025 10:29 PM, LOCATION [facility] INDICATION: W19.XXXA: Fall, initial encounter ADDITIONAL CLINICAL [...] DATE/TIME OF EXAM: 01/02/2025 10:29 PM, LOCATION [facility] INDICATION: W19.XXXA: Fall, initial encounter ADDITIONAL CLINICAL [...] dislocation. Report dictated by Eduardo Emerson MD (associate professor of radiology). I, Gonsalo Gracia MD have personally reviewed and interpreted this examination/study. > Interpreting Provider: Gonsalo Gracia MD on 01/03/2025 8:44 AM us Franny Reyna MD DIAGNOSTIC IMAGING ORDERABLES Fi nal Result from Last 3 Months Insurance [facility] SELF PAY NO INSURANCE Member Subscriber Plan / Payer (Ef fective for All Dates) Name:Mayda Colbert Member ID:Not on file Relation to Subscriber:Not on file Name:MAYDA COLBERT Subscriber ID:Not on file (Home) Address: [place] [address] Payer ID:Not on file Group ID:Not on file Type:Self Pay Address: [place], [place] [employer] MANAGED CARE MEDICARE ADV * Guarantor: MAYDA COLBERT Account Type Relation to Patient Date of Phone Billing Address Personal/[place] [address] [facility] SELF PAY NO INSURANCE Member Subscriber Plan / Payer (Ef fective for All Dates) Name:Mayda Colbert Member ID:Not on file Relation to Subscriber:Not on file Name:MAYDA COLBERT Subscriber ID:Not on file Address: [place] [address] Payer ID:Not on file Group ID:Not on file Type:Self Pay Address: [place], [place] * Guarantor: MAYDA COLBERT Account Type Relation to Patient Date of Phone Billing Address Personal/[place] [address] [facility] SELF PAY NO INSURANCE Member Subscriber Plan / Payer (Ef fective for All Dates) Name:Mayda Colbert Member ID:Not on file Relation to Subscriber:Not on file Name:MAYDA COLBERT Subscriber ID:Not on file Address: [address] [place] [phone] Payer ID:Not on file Group ID:Not on file Type:Self Pay Address: [place], [place] [facility] SELF PAY NO INSURANCE Member Subscriber Plan / Payer (Ef fective for All Dates) Name:Mayda Colbert Member ID:Not on file Relation to Subscriber:Not on file Name:MAYDA COLBERT Subscriber ID:Not on file Address: [address] [place] [phone] Payer ID:Not on file Group ID:Not on file Type:Self Pay Address: [place], [place] [facility] SELF PAY NO INSURANCE Member Subscriber Plan / Payer (Ef fective for All Dates) Name:Mayda Colbert Member ID:Not on file Relation to Subscriber:Not on file Name:MAYDA COLBERT Subscriber ID:Not on file Address: [address] [place] [phone] Payer ID:Not on file Group ID:Not on file Type:Self Pay Address: [place], [place] Care Teams Practice Administrator Relationship Specialty Start Date End Date Brooklynn Pennington, GLENDA-BEATRICE [address] [phone] PCP - General Nurse Practitioner 01/03/25
[2025-02-21] MEDS: LACTATED RINGERS 1,000 ML 999 ML IV CONT (01:00)
[2025-02-21] MEDS: ONDANSETRON INJ 4 MG/2 ML VIAL IV PUSH ×2 (01:02→02:58)
[2025-02-21] MEDS: MORPHINE SULFATE (*CRX) 4 MG/ML INJ IV PUSH ×2 (01:04→02:58)
[2025-02-21 01:23] VITALS: BP 142/79; PULSE 103; RESP 18; O2SAT 97
[2025-02-21 02:35] VITALS: BP 141/66; PULSE 103; RESP 18; O2SAT 96
[2025-02-21 03:52] VITALS: BP 122/84; PULSE 98; RESP 17; O2SAT 98
== END 2025-02-21 03:53 | disposition home or self-care (01) ==
PROVIDERS: Emergency Provider Emergency Medicine; PCP Nurse Practitioner Family
DX: R10.33 Periumbilical pain (principal); R11.2 Nausea with vomiting, unspecified; K50.90 Crohn's disease, unspecified, without complications; E55.9 Vitamin D deficiency, unspecified; E78.5 Hyperlipidemia, unspecified; G47.33 Obstructive sleep apnea (adult) (pediatric); M85.80 Other specified disorders of bone density and structure, unspecified site; M19.90 Unspecified osteoarthritis, unspecified site; F32.A Depression, unspecified; F17.210 Nicotine dependence, cigarettes, uncomplicated; Z98.1 Arthrodesis status; Z87.442 Personal history of urinary calculi; Z90.49 Acquired absence of other specified parts of digestive tract; Z79.899 Other long term (current) drug therapy; Z79.69 Long term (current) use of other immunomodulators and immunosuppressants
CPT/HCPCS: 36415; 80053; 81001; 83690; 85025; 96361; 96374; 96375; 96376; 99284; J2270; J2405; J7120

== ENCOUNTER 2025-03-13 15:03 | Outpatient (CLI) | payer MEDICARE, SELFPAY ==
[2025-03-13 16:20] LABS: CRP 5.5 mg/dL (<1.0)
[2025-03-13 16:25] LABS: Erythrocyte Sedimentation Rate 22 mm/hr (0-20)
--- OUTSIDE RECORDS SUMMARY | 2025-03-13 17:34 | XMS_ITS | Clinical Summary ---
Author Organization [facility] Address [address] [facility] [place] [address] Care Team Providers Care Hired Worker Name Role Phone Brooklynn Pennington Erica DOSHI-BEATRICE Primary Care Provider Source Comments [facility],non-owned Affiliates and Associated Physician Practices is amultiple site organization consisting of ambulatory clinics and hospital sitesin [place], [place], [place]. This disclosure is being madepursuant to the Care Everywhere program and may not contain all information available regarding this patient. Last updated 18.[facility] Allergies Active Allergy Reactions Criticality Noted Date [...] by mouth as needed for Itching Active Encounters Date Type Department Care Team Description 02/11/2025 11:10 AM CDT - 02/11/2025 11:59 PM CDT Hospital Encounter [facility] DIAGNOSTIC RAD CSM [address] [place] [address] Franny Palacios MD Discharge Disposition: Home or Self Care 02/11/2025 10:45 AM CDT Office Visit [facility] - Orthopedics [address] [place] [phone] Franny Palacios MD Other closed displaced fracture of proximal end of right humerus with routine healing, subsequent encounter (Primary Dx) 02/11/2025 Travel 02/07/2025 Orders Only [facility] - Orthopedics [address] [place] [phone] Franny Palacios MD Other closed displaced fracture of proximal end of right humerus with routine healing, subsequent encounter 01/18/2025 Refill [facility] PHYS SURGERY [address] [place] [address] Sang Thomas MD MEDICATION REFILL 01/18/2025 Telephone [facility] - Orth[facility] [address] [place] [phone] Franny Palacios MD Refill Request 01/14/2025 9:45 AM CDT Office Visit [facility] - Orthopedics [address] [place] [phone] Franny Palacios MD McCutchen, Kailey J, CHEMICAL TECHNICIAN-NIGHT CLUB MANAGER Acute pain of right shoulder (Primary Dx); Other closed displaced fracture of proximal end of right humerus, initial encounter; Injury of right shoulder, subsequent encounter 01/14/2025 9:23 AM CDT - 01/14/2025 11:59 PM CDT Hospital Encounter [facility] DIAGNOSTIC RAD CSM [address] [place] [address] Franny Palacios MD Discharge Disposition: Home or Self Care 01/14/2025 Travel 01/07/2025 9:45 AM CDT Office Visit [facility] - Orthopedics [address] [facility] [place] [address] Franny Palacios MD McCutchen, Kailey J, CHEMICAL TECHNICIAN-NIGHT CLUB MANAGER Other closed displaced fracture of proximal end of right humerus, initial encounter (Primary Dx); Acute pain of right shoulder 01/07/[address] [facility] [address] [facility], [facility] [place] [phone] Franny Palacios MD Injury of right shoulder, subsequent encounter 01/07/2025 Travel 01/02/2025 9:58 PM CDT - 01/03/2025 5:29 AM CDT Emergency [facility] EMERGENCY DEPARTMENT [address] [place] [phone] Franny Reyna MD Other closed nondisplaced fracture [...] 11:42 AM CDT Height 157.5 cm (5' 2) 02/11/2025 11:42 AM CDT Body Mass Index 38.23 02/11/2025 11:42 AM CDT Plan of Treatment Upcoming Encounters Date Type Department Care Team (Late st Contact Info) Description 03/25/2025 11:00 AM CDT Office Visit [facility] - Orthopedics [address] [facility] [place] [address] Franny Palacios MD [address] [place] [address] Health Maintenance Due Date Last Done Comments COLOGUARD (AGES 45-75) - COLON CA SCREENING 1961 COLON MONITORING 1961 COLONOSCOPY [...] 60-74 years 1-dose series) 2021 COVID-19 VACCINE ( season) 2024 07/10/2021, 10/11/2020, 09/20/2020 MEDICARE AWV CALENDAR YEAR 2024 INFLUENZA VACCINE (Season Ended) 2025 SCREENING FOR DIABETES 03/09/2027 4, 03/09/2024, 11/21/2023, Additional history exists DEPRESSION SCREENING Completed 01/07/2025 HEPATITIS B VACCINE [...] A/C/Y/W VACCINE Aged Out No longer eligible based on patient's age to complete this topic Goals Goal Patient Goal Type Associated Problems Recent Progress Patient-Stated? Author Mobility General No Symone Villafuerte Note: Expected end date: 3 months The [...] Suresh Patel MD on 02/11/2025 11:32 AM Franny Palacios MD DIAGNOSTIC IMAGING ORDERABLES Fi nal Result * CT Shoulder Right Wo Contrast (01/03/2025 1:38 AM CDT) Anatomical Region Laterality Modality Upper Extremity Computed Tomogra phy 01/03/2025 1:55 AM CDT Impressions 01/03/2025 8:17 AM CDT IMPRESSION: Moderately displaced fracture of the humeral neck and head. Dictated and interpreted by Jeovany Joe MD (radiology assistant). I, Suresh Patel MD have personally reviewed and interpreted this examination/study. > Interpreting Provider: Suresh Patel MD on 01/03/2025 8:17 AM Narrative 01/03/2025 8:17 AM CDT PROCEDURE: CT SHOULDER RIGHT WO CONTRAST, DATE/TIME OF EXAM: 01/03/2025 1:39 AM, LOCATION [facility] INDICATION: W19.XXXA: Fall, initial encounter ADDITIONAL CLINICAL [...] DATE/TIME OF EXAM: 01/03/2025 1:39 AM, LOCATION [facility] INDICATION: W19.XXXA: Fall, initial encounter ADDITIONAL CLINICAL [...] Dictated and interpreted by Jeovany Joe MD (radiology assistant). I, Suresh Patel MD have personally reviewed [...] identified. Report dictated by Jeovany Joe MD (radiology assistant). Ayana Brooks MD have personally reviewed and interpreted this examination/study. > Interpreting Provider: Ayana Ball MD on 01/03/2025 9:14 AM Narrative 01/03/2025 9:14 AM CDT PROCEDURE: XR ELBOW RIGHT 3VW OR MORE, DATE/TIME OF EXAM: 01/03/2025 12:57 AM, LOCATION [facility] INDICATION: W19.XXXA: Fall, initial encounter ADDITIONAL CLINICAL [...] MORE, DATE/TIME OF EXAM: 2:57 AM, LOCATION [facility] INDICATION: W19.XXXA: Fall, initial encounter ADDITIONAL CLINICAL INFORMATION: Ordering Provider Reason For Exam: fx COMPARISON: None. FINDINGS: The osseous structures are intact and well aligned without acutefracture or dislocation. The joint spaces are preserved. No joint effusion isseen. Bone density and texture are normal. No soft tissue swelling is present. IMPRESSION: No acute fracture or dislocation identified. Report dictated by Jeovany Joe MD (radiology assistant). Ayana Brooks MD have personally reviewed and interpreted this examination/study. > Interpreting Provider: Ayana Ball MD on 01/03/2025 9:14 AM Franny Reyna MD DIAGNOSTIC IMAGING ORDERABLES Fi [...] dislocation. Report dictated by Eduardo Emerson MD (radiology assistant). Gonsalo Brooks MD have personally reviewed and interpreted this examination/study. > Interpreting Provider: Gonsalo Gracia MD on 01/03/2025 8:44 AM Narrative 01/03/2025 8:44 AM CDT PROCEDURE: XR SHOULDER RIGHT 2VW OR MORE, XR HUMERUS RIGHT 2VW OR MORE, DATE/TIME OF EXAM: 01/02/2025 10:29 PM, LOCATION [facility] INDICATION: W19.XXXA: Fall, initial encounter ADDITIONAL CLINICAL [...] DATE/TIME OF EXAM: 01/02/2025 10:29 PM, LOCATION [facility] INDICATION: W19.XXXA: Fall, initial encounter ADDITIONAL CLINICAL [...] dislocation. Report dictated by Eduardo Emerson MD (radiology assistant). Gonsalo Brooks MD have personally reviewed and interpreted this examination/study. > Interpreting Provider: Gonsalo Gracia MD on 01/03/2025 8:44 AM us Franny Reyna MD DIAGNOSTIC IMAGING ORDERABLES Fi nal Result from Last [address] [place] [address] [place] [address] [facility] SELF PAY NO INSURANCE Member Subscriber Plan / Payer (Ef fective for All Dates) Name:Mayda Colbert Member ID:Not on file Relation to Subscriber:Not on file Name:MAYDA COLBERT Subscriber ID:Not on file (Home) Address: [address] [place] [phone] Payer ID:Not on file Group ID:Not on file Type:Self Pay Address: [place], [place] [employer] MED[employer]ARE MANAGED CARE MEDICARE ADV [facility] SELF PAY NO INSURANCE Member Subscriber Plan / Payer (Ef fective for All Dates) Name:Mayda Colbert Member ID:Not on file Relation to Subscriber:Not on file Name:MAYDA COLBERT Subscriber ID:Not on file Address: [address] [place] [phone] Payer ID:Not on file Group ID:Not on file Type:Self Pay Address: [place], [place] [facility] SELF PAY NO INSURANCE Member Subscriber Plan / Payer (Ef fective for All Dates) Name:Mayda Colbert Member ID:Not on file Relation to Subscriber:Not on file Name:MAYDA COLBERT Subscriber ID:Not on file Address: [address] [place] [address] [facility] [place] [address] Payer ID:Not on file Group ID:Not on file Type:Self Pay Address: [place] [facility] SELF PAY NO INSURANCE Member Subscriber Plan / Payer (Ef fective for All Dates) Name:Mayda Colbert Member ID:Not on file Relation to Subscriber:Not on file Name:MAYAD COLBERT Subscriber ID:Not on file Address: [address] [place] [address] [facility] [place] [address] Payer ID:Not on file Group ID:Not on file Type:Self Pay Address: [place] [facility] SELF PAY NO INSURANCE Member Subscriber Plan / Payer (Ef fective for All Dates) Name:Mayda Colbert Member ID:Not on file Relation to Subscriber:Not on file Name:MAYDA COLBERT Subscriber ID:Not on file Address: [address] [place] [phone] Payer ID:Not on file Group ID:Not on file Type:Self Pay Address: [place], [place] Care Teams Hired Worker Relationship Specialty Start Date End Date Brooklynn Pennington, CHEMICAL TECHNICIAN-NIGHT CLUB MANAGER [address] [phone] PCP - General Nurse Practitioner 01/03/25
--- OUTSIDE RECORDS SUMMARY | 2025-03-13 17:35 | XMS_ITS ---
Author Name Auto Generated, Auto Generated Organization [facility] ice Address [facility] [place] [address] Phone [phone] Care Team Providers Care Underwater Hunter Name Role Phone Benjamin Dennis Unavailable [phone] Functional Status No Results Mental Status No [...]
[2025-03-13 20:55] LABS: Toxigenic C. Diff NEGATIVE (NEGATIVE)
[2025-03-19 19:03] LABS: Calprotectin, Stool 128 mcg/g
== END 2025-03-13 15:04 | disposition home or self-care (01) ==
LOC: ANHLAB 15:08
PROVIDERS: PCP Nurse Practitioner Family; Visit Provider Nurse Practitioner Family
DX: R10.9 Unspecified abdominal pain (principal); K92.0 Hematemesis; R19.7 Diarrhea, unspecified; K50.914 Crohn's disease, unspecified, with abscess
CPT/HCPCS: 36415; 83993; 85652; 86140; 87493

== ENCOUNTER 2025-08-07 08:36 | Outpatient (CLI) | payer MEDICARE, SELFPAY ==
--- OUTSIDE RECORDS SUMMARY | 2025-08-07 08:53 | XMS_ITS | Clinical Summary ---
Author Organization [facility] Address [address] [facility] [place] [address] Care Team Providers Care Timber Treatment Plant Operator Name Role Phone Brooklynn Pennington GLENDA-BEATRICE Primary Care Provider Source Comments [facility],non-owned Affiliates and Associated Physician Practices is amultiple site organization consisting of ambulatory clinics and hospital sitesin [place], [place] and [place]. This disclosure is being madepursuant to the Care Everywhere program and may not contain all information available regarding this patient. Last updated 18.[facility] Allergies Active Allergy Reactions Criticality Noted Date [...] by mouth as needed for Itching Active Social History Tobacco Use Types Packs/Day Years [...] 02/11/2025 11:42 AM CDT Plan of Treatment Health Maintenance Due Date Last Done Comments COLOGUARD (AGES 45-75) - COL ON CA SCREENING 1961 COLON MONITORING 1961 COLONOSCOPY - COLON CA SCREENING 1961 CT COLONOGRAPHY - COLON CA SCREENING 1961 Colorectal Cancer Screening 1961 FIT - COLON CA SCREENING 1961 FLEX SIG - COLON CA SCREENING 1961 LIPID TESTING 1961 MAMMOGRAM 1961 HIV SCREENING 1976 HEPATITIS C SCREENING 06/01/1979 DTAP/TDAP/TD VACCINES (1 - Tdap) 1980 PAP SMEAR 1982 PNEUMOCOCCAL VACCINE 50+ (1 of 1 - PCV) 2011 ZOSTER VACCINE (1 of 2) 2011 Respiratory Syncytial Virus (RSV) Vaccine Pt: or over 60 yrs (1 - Risk 60-74 years 1-dose series) 2021 MEDICARE AWV CALENDAR YEAR 2024 SCREENING FOR DIABETES 01/07/2025 COVID-19 VACCINE (4 - 2024-2 6 season) 2025 07/10/2021, 10/11/2020, 09/20/2020 INFLUENZA VACCINE (#1) 2025 DEPRESSION SCREENING Completed 01/07/2025 HEPATITIS B [...] Interventions: Perform independent activity per your ability Insurance [place] [address] [address] SELF PAY NO INSURANCE Member Subscriber Plan / Payer (Ef fective for All Dates) Name:Saira Colbert Member ID:Not on file Relation to Subscriber:Not on file Name:SAIRA COLBERT Subscriber ID:Not on file (Home) Address: [place] [address] Payer ID:Not on file Group ID:Not on file Type:Self Pay Address: [place], [place] [employer] MEDICARE MANAGED CARE MEDICARE [place]V [place] [facility] SELF PAY NO INSURANCE Member Subscriber Plan / Payer (Ef fective for All Dates) Name:Saira Colbert Member ID:Not on file Relation to Subscriber:Not on file Name:SAIRA COLBERT Subscriber ID:Not on file Address: [place] [address] Payer ID:Not on file Group ID:Not on file Type:Self Pay Address: [place], [place] * Guarantor: SAIRA COLBERT Account Type Relation to Patient Date of Phone Billing Address Personal/Family Spouse Markus [place] [phone] [facility] SELF PAY NO INSURANCE Member Subscriber Plan / Payer (Ef fective for All Dates) Name:Saira Colbert Member ID:Not on file Relation to Subscriber:Not on file Name:SAIRA COLBERT Subscriber ID:Not on file Address: [address] [place] [address] [place] [phone] Payer ID:Not on file Group ID:Not on file Type:Self Pay Address: [place], [place] * Guarantor: SAIRA COLBERT Account Type Relation to Patient Date of Phone Billing Address Personal/Family Spouse Markus [facility] [place] [phone] [facility] SELF PAY NO INSURANCE Member Subscriber Plan / Payer (Ef fective for All Dates) Name:Saira Colbert Member ID:Not on file Relation to Subscriber:Not on file Name:SAIRA COLBETR Subscriber ID:Not on file Address: [place] [facility] [place] [phone] Payer ID:Not on file Group ID:Not on file Type:Self Pay Address: [place], [place] * Guarantor: SAIRA COLBERT Account Type Relation to Patient Date of Phone Billing Address Personal/[place] [address] [facility] SELF PAY NO INSURANCE Member Subscriber Plan / Payer (Ef fective for All Dates) Name:Saira Colbert Member ID:Not on file Relation to Subscriber:Not on file Name:SAIRA COLBERT Subscriber ID:Not on file Address: [place] [address] Payer ID:Not on file Group ID:Not on file Type:Self Pay Address: [place], [place] Care Teams Timber Treatment Plant Operator Relationship Specialty Start Date End Date Brooklynn Pennington, GLENDA-EVENTS DIRECTOR [address] [phone] PCP - General Nurse Practitioner 01/03/25
--- OUTSIDE RECORDS SUMMARY | 2025-08-07 08:54 | XMS_ITS | Clinical Summary ---
Author Organization [facility] Address [address] [place] [address] Care Team Providers Care Ribber Name Role Phone Pennington Brooklynn ABBIE Primary Care Provider [phone] Allergies Active Allergy Reactions Criticality Noted Date [...] Problems Problem Noted Date Diagnosed Date Sepsis 11/18/2023 Family History Medical History Relation Comments [...] pure alcohol) occational daniele 2 months-1 drink [facility] [employer] Answer Date Recorded In the past 12 months has e [employer], gas, oil, or water [employer] threatened to shut off services in your [...] No 11/18/2023 Social Connection and Isolation Panel Answer Date Recorded In a typical week, how many times do you talk on the phone with family, friends, or neighbors? Three times a week 11/18/2023 How often do you get togethe r with friends or relatives? Never 11/18/2023 How often do you attend chur ch or voodoo services? 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 DEFENSE ATTORNEY Gender Identity Not on file Sexual Orientation Not on file Last Filed Vital Signs Vital Sign Reading Time Taken Comments Blood Pressure 138/68 03/22/2025 10:37 PM CDT Pulse 80 03/22/2025 10:37 PM CDT Temperature 36.7 C (98 F) 03/22/2025 10:37 PM CDT Respiratory Rate 20 03/22/2025 10:37 PM CDT Oxygen Saturation 98% 03/22/2025 10:37 PM CDT Inhaled Oxygen Concentration - - Weight 96.2 kg (212 lb) 03/22/2025 8:47 PM CDT Height 157.5 cm (5' 2) 03/22/2025 8:47 PM CDT Body Mass Index 38.78 03/22/2025 8:47 PM CDT Plan of Treatment Health Maintenance Due Date Last Done Comments Cervical Cancer Screening Pa p Smear (Age 30 to 64) Every 3 Years 1961 Colorectal Cancer Screening Colonoscopy (10 Years) 1961 Annual Physical 1964 Hepatitis C 1979 Pneumococcal Vaccine: 50+ Years (1 of 2 - PCV) 1980 Cervical Cancer Screening Pa p with HPV Testing (Age 30 to 64) Every 5 Years 1991 Cervical Cancer Screening wi th HPV 1991 Mammogram Screening 2001 Zoster Vaccines (1 of 2) 2011 COVID-19 Vaccine (4 - 2024-2 6 season) 2025 07/10/2021, 10/11/2020, 09/20/2020 Influenza Adult (#1) 2025 DTaP, Tdap and Td Vaccines ( 2 - Td or Tdap) 10/13/2025 10/13/2015 Lung Cancer Screening 12/31/2025 12/31/2024 RSV Immunization or 60+ Years (1 - 1-dose 75+ series) 2036 Hepatitis A Vaccines Aged Out No long er eligible based on patient's age to complete this topic Meningococcal B Vaccine Aged Out No l onger eligible based on patient's age to complete this topic Meningococcal Vaccine Aged Out No sue arnoldo eligible based on patient's age to complete this topic RSV Immunizations Under 20 Months Aged Out No longer eligible b ased on patient's age to complete this topic Procedures Procedure Name Priority Date/Time Associated Diagnosis Comments CT CHEST WO CON STAT 12/31/2024 11:07 AM CDT from Last 3 Months or Most Recently Relevant to Health Maintenance Results * CT CHEST WO CON (12/31/2024 11:07 [...] 11:30 AM Narrative 12/31/2024 11:36 AM CDT [facility] [address] [facility] [place] [id number] Procedure(s): CT CHEST WO CON Date of [...] Procedure Note Adrian Palencia MD - 12/31/2024 [facility] [address] [place] [address] Procedure(s): CT CHEST WO CON Date of [...] By: Adrian Palencia MD, 12/31/2024 11:30 AM Zhanna Carpenter MD CT Final Result from Last 3 Months or Most Recently Relevant to Health Maintenance Insurance [facility] Advance Directives * Full Code (Latest Code Status on File) Date Activated Date Inactivated Comments 11/18/2023 10:45 AM 11/21/2023 4:36 PM Care Teams Ribber Relationship Specialty Start Date End Date Brooklynn Pennington APNP [address] [phone] PCP - General Nurse Practitioner Family 11/17/23
[2025-08-07 09:30] LABS: Hematocrit 47.8 % (37.0-47.0); Hemoglobin 16.1 g/dL (12.0-15.0); Immature Granulocyte Percent A 0.3 % (0-0.5); Lymphocytes Absolute Auto 1.88 K/mm3 (0.9-3.2); Mean Corpuscular HGB Conc 33.7 g/dl (32-36); Mean Corpuscular Hemoglobin 31.8 pg (26-34); Mean Corpuscular Volume 94.3 fl (80-100); Nucleated Red Blood Cells Absolute Auto 0.000 K/mm3 (0.0-0.012); Nucleated Red Blood Cells Perc 0.0 % (0.0-0.2); Platelet Count Result 307 k/mm3 (150-375); Red Blood Count 5.07 M/mm3 (4.2-5.4); White Blood Count 9.3 K/mm3 (4.5-10.0)
[2025-08-07 09:58] LABS: Alanine Aminotransferase 26 U/L (6-35); Albumin Level 4.0 g/dL (3.5-5.1); Alkaline Phosphatase 170 U/L (38-126); Anion Gap 8 mmol/L (4-12); Aspartate Amino Transferase 41 U/L (14-36); Bilirubin,Total 0.8 mg/dL (0.2-1.3); Blood Urea Nitrogen 12 mg/dL (7-17); CRP 0.8 mg/dL (<1.0); Calcium 9.1 mg/dL (8.4-10.2); Carbon Dioxide 22 mmol/L (22-30); Chloride 104 mmol/L (98-107); Estimated Glomerular Filt Rate > 60; Glucose 106 mg/dL (65-110); Potassium 3.7 mmol/L (3.4-5.0); Sodium 134 mmol/L (137-145); Total Protein 7.5 g/dL (6.3-8.2)
== END 2025-08-07 08:37 | disposition home or self-care (01) ==
PROVIDERS: PCP Nurse Practitioner Family; Visit Provider Internal Medicine Gastroenterology
DX: M62.830 Muscle spasm of back (principal); K50.914 Crohn's disease, unspecified, with abscess
CPT/HCPCS: 36415; 80053; 85025; 86140

== ENCOUNTER 2025-08-08 15:34 | Outpatient (CLI) | payer MEDICARE, SELFPAY ==
--- OUTSIDE RECORDS SUMMARY | 2025-08-08 20:58 | XMS_ITS | Clinical Summary ---
Author Organization [facility] Address [address] [place] [address] Care Team Providers Care Editor Dictionary Name Role Phone Brooklynn Pennington GLENDA-BEATRICE Primary Care Provider Source Comments [facility],non-owned Affiliates and Associated Physician Practices is amultiple site organization consisting of ambulatory clinics and hospital sitesin [place], [place], [place] and [place]. This disclosure is being madepursuant to the Care Everywhere program and may not contain all information available regarding this patient. Last updated 18.[facility] Allergies Active Allergy Reactions Criticality Noted Date [...] Perform independent activity per your ability [place] [address] [place] [address] SELF PAY NO INSURANCE Member Subscriber Plan / Payer (Ef fective for All Dates) Name:Saira Colbert Member ID:Not on file Relation to Subscriber:Not on file Name:SAIRA COLBERT Subscriber ID:Not on file (Home) Address: [place] [address] Payer ID:Not on file Group ID:Not on file Type:Self Pay Address: [place], [place] [employer] MEDICARE MANAGED CARE MEDICARE [place] [facility] SELF PAY NO INSURANCE Member Subscriber Plan / Payer (Ef fective for All Dates) Name:Saira Colbert Member ID:Not on file Relation to Subscriber:Not on file Name:SAIRA COLBERT Subscriber ID:Not on file Address: [place] [address] Payer ID:Not on file Group ID:Not on file Type:Self Pay Address: [place], [place] * Guarantor: SARIA COLBERT Account Type Relation to Patient Date of Phone Billing Address Personal/Family Spouse [place] [phone] [facility] SELF PAY NO INSURANCE Member Subscriber Plan / Payer (Ef fective for All Dates) Name:Saira Colbert Member ID:Not on file Relation to Subscriber:Not on file Name:SAIRA COLBERT Subscriber ID:Not on file Address: [address] [place] [address] [place] [phone] Payer ID:Not on file Group ID:Not on file Type:Self Pay Address: [place], [place] * Guarantor: SAIRA COLBERT Account Type Relation to Patient Date of Phone Billing Address Personal/Family Spouse Markus [facility] [place] [phone] [facility] SELF PAY NO INSURANCE Member Subscriber Plan / Payer (Ef fective for All Dates) Name:Saira Colbert Member ID:Not on file Relation to Subscriber:Not on file Name:SAIRA COLBERT Subscriber ID:Not on file Address: [place] [facility] [place] [phone] Payer ID:Not on file Group ID:Not on file Type:Self Pay Address: [place], [place] * Guarantor: SAIRA COLBERT Account Type Relation to Patient Date of Phone Billing Address Personal/[place] [address] [facility] SELF PAY NO INSURANCE Member Subscriber Plan / Payer (Ef fective for All Dates) Name:Saira Colbert Member ID:Not on file Relation to Subscriber:Not on file Name:SAIRA COLBERT Subscriber ID:Not on file Address: [place] [address] Payer ID:Not on file Group ID:Not on file Type:Self Pay Address: [place], [place] Care Teams Editor Dictionary Relationship Specialty Start Date End Date Brooklynn Pennington, GLENDA-LABORER HEADING [address] [phone] PCP - General Nurse Practitioner 01/03/25
--- OUTSIDE RECORDS SUMMARY | 2025-08-08 20:58 | XMS_ITS | Clinical Summary ---
Author Organization [facility] Address [address] [place] [address] Care Team Providers Care Child Care Attendant School Name Role Phone [place] Brooklynn ABBIE Primary Care Provider [phone] Allergies Active Allergy Reactions Criticality Noted Date [...] pure alcohol) occational daniele 2 months-1 drink [facility] 410 Labsities Answer Date Recorded In the past 12 months has e [employer], gas, oil, or water [employer] threatened to shut off services in your [...] often do you attend chur ch or gnosticism services? Never 11/18/2023 Do you belong to any clubs o r organizations such as moravian groups, unions, fraternal or athletic groups, or [...] place to sleep or slept in a long term (including now)? No 11/18/2023 Comments No Sex and Gender Information Value Date Recorded Sex Assigned at Female 03/22/2025 8:49 PM CDT Legal Sex Female 10:22 PM [employer] Gender Identity Not on file Sexual Orientation [...] 11:30 AM Narrative 12/31/2024 11:36 AM CDT [facility] [id number] [facility] [address] [place] [id number] Procedure(s): CT CHEST WO CON Date of [...] Procedure Note Adrian Palencia MD - 12/31/2024 [facility] [id number] [place] [address] Procedure(s): CT CHEST WO CON Date of [...] Most Recently Relevant to Health Maintenance Insurance [facility] MEDICA[facility] Advance Directives * Full Code (Latest Code Status on File) Date Activated Date Inactivated Comments 11/18/2023 10:45 AM 11/21/2023 4:36 PM Care Teams Child Care Attendant School Relationship Specialty Start Date End Date Brooklynn [place] APNP [address] [id number] PCP - General Nurse Practitioner Family 11/17/23
[2025-08-13 08:08] LABS: Calprotectin, Fecal 95 ug/g (0-120)
== END 2025-08-08 15:35 | disposition home or self-care (01) ==
LOC: ANHLAB 15:35
PROVIDERS: PCP Nurse Practitioner Family; Visit Provider Internal Medicine Gastroenterology
DX: K50.914 Crohn's disease, unspecified, with abscess (principal)
CPT/HCPCS: 83993